=== PATIENT | female | born 1945 | race Caucasian/White ===

== ENCOUNTER 2023-01-02 09:41 | Observation (INO) | payer MEDICARE, SELFPAY ==
[2023-01-02 09:43] VITALS: BP 155/70; PULSE 86; RESP 16; TEMP 37.3; O2SAT 95; BMI 31.5
[2023-01-02 09:45] VITALS: O2SAT 95
[2023-01-02 10:35] LABS: Absolute Lymphocyte Count 0.84 X10^3/uL (0.83-4.51); Absolute Neutrophil Count 6.1 X10^3/uL (2.0-7.7); Basophil# 0.03 X10^3/uL; Basophil% 0.4 % (0-1); Eosinophil# 0.11 X10^3/uL; Eosinophils% 1.4 % (0-5); Hemoglobin 11.7 g/dL (12.0-15.0); Lymphocyte # 0.84 X10^3/ul (0.83-4.51); Mean Corp Hgb Conc 31.6 g/dL (32-36); Mean Corpuscular Hgb 29.4 pg (27.0-32.0); Mean Platelet Vol. 10.6 fl (6.2-12.0); Monocyte# 0.54 X10^3/uL; Monocyte% 7.1 % (0-10); NRBC Flagged by Analyzer 0 % (0-5); Neutrophil # 6.08 X10^3/uL (2.7-7.7); Platelet Count 159 K/mm3 (150-450); RBC Distribution Width CV 12.9 % (11.6-14.6); RBC Distribution Width SD 44.1 fl (35.1-43.9); Red Blood Count 3.98 M/mm3 (4.2-5.4); White Blood Count 7.6 K/mm3 (4.4-11.0)
--- NOTE | 2023-01-02 10:35 | EX.ED.GENINJ ---
HPI History of Present Illness Chief Complaint: Fall Informant: patient Narrative Narrative: Patient is a 77-year-old female presenting after mechanical fall. He states she fell in her garage yesterday afternoon. She landed mostly on her right knee which has been swollen and painful since. She did hit her head but denies any loss of conscious. S She notes that she has chronic numbness of her legs which has been thoroughly worked up and they do not know why. She lives home independently. She is currently with her neighbor. She normally ambulates independently. Has no other complaints or concerns at this time. Is most concerned about her pain. Did not take anything for pain as she was to start on metoprolol and did not know what would interact with this. Is adamant she is not on any blood thinners PFSH PFS Home Medications ibuprofen 125 mg-acetaminophen 250 mg tablet (Advil Dual Action) 2 tab PO BID 01/02/23 [History Last Taken Unknown] metoprolol succinate 25 mg capsule sprinkle, ext. release 24 hr 12.5 mg PO DAILY 01/02/23 [History Last Taken Unknown] ropinirole 2 mg tablet 2 mg PO TID 01/02/23 [History Last Taken Unknown] Allergy/AdvReac Type Severity Reaction Status Date / Time No Known Allergies Allergy Verified 01/02/23 09:41 Social History Smoking Status: Never smoker ROS ROS ED Constitutional Constitutional ED: Denies chills or fever(s) Eyes Eyes: Denies blurry vision or change in vision ENT ENT ED: Denies ear pain or rhinorrhea Cardiovascular Cardiovascular: Denies chest pain Respiratory/Chest Respiratory/Chest: Denies cough Gastrointestinal Gastrointestinal: Denies abdominal pain, nausea or vomiting Musculoskeletal Musculoskeletal: Reports myalgias and other Details: right knee pain and swelling ; Denies arthralgias Integumentary Denies rash Neurologic Neurologic: Reports paresthesias; Denies headache(s) or weakness Psychiatric Psychiatric: Denies anxiety Hematologic/Lymphatic Hematologic/Lymphatic: Denies easy bleeding or easy bruising EXAM Physical Exam Const Vital Signs: 01/02/23 09:43 01/02/23 09:45 Temperature 99.1 F Temperature Source Oral Pulse Rate 86 Respiratory Rate 16 Respiratory Effort Normal Non-Labored Respiratory Depth Normal Respiratory Pattern Normal Blood Pressure 155/70 H Blood Pressure Mean 98 Pulse Ox 95 95 Oxygen Delivery Method Room Air Room Air Positive well nourished and well developed General Appearance ED: well developed and NAD HEENT Reports TM's clear atraumatic Tympanic Membrane ED: Yes TM's clear Eyes PERRL and EOMs intact bilaterally Neck full ROM General: Negative for tenderness Chest Wall inspection of chest normal and palpation of chest normal Resp normal respiratory effort and clear to auscultation bilaterally Cardio regular rhythm and no murmurs Rate: regular rate GI normal to inspection, nondistended, normoactive bowel sounds and non-tender Extremity Extremity Narrative: Decreased range of motion with diffuse tenderness of the right knee. Significant effusion present. Patient is not able to elevate a straight leg off the bed. 2+ bilateral distal pulses. No pain with logroll. Pelvis is stable. No other bony tenderness appreciated. Neuro oriented x3, moves all extremities, no focal motor deficits and no sensory deficits noted Psych mental status grossly normal and thought process normal Skin no rashes or lesions noted MDM MDM MDM Narrative Medical decision making narrative: Patient is evaluated for knee pain after mechanical fall. She appears nontoxic and in no acute distress. Is quite uncomfortable with a large effusion of the right knee. Differential includes patellar fracture, tibial plateau fracture and quadricep tendon injury. She does not have a high riding patella at this time. She is given IV morphine for pain control. She otherwise has a normal exam and denies any other injuries. She states she did hit her head slightly when she fell but she had no loss of consciousness and does not want a head CT. She is acting appropriate at this time. On repeat evaluation she is more comfortable. X-ray interpreted by myself as well as radiology is consistent with a nondisplaced lateral tibial plateau fracture on the right. Case is discussed with Dr. Yeager, orthopedist on-call who states this is nonoperative and just needs nonweightbearing status. Patient is placed in a knee immobilizer. As patient lives home alone she is concerned about her ability to perform ADLs with a nonweightbearing status. Will be admitted to the hospital service for PT OT evaluation and possible placement if needed. Patient agreeable with this. Case discussed with admitting physician, Dr. Rogers Lab Data Labs: Laboratory Results - last 24 hr 01/02/23 01/02/23 10:30 10:30 WBC 7.6 RBC 3.98 L Hgb 11.7 L Hct 37.0 MCV 93.0 MCH 29.4 MCHC 31.6 L RDW Std Deviation 44.1 H RDW Coeff of Charles 12.9 Plt Count 159 MPV 10.6 Immature Gran % (Auto) 0.100 Neut % (Auto) 80.0 H Lymph % (Auto) 11.0 L Wilson % (Auto) 7.1 Eos % (Auto) 1.4 Baso % (Auto) 0.4 Absolute Neuts (auto) 6.1 Absolute Lymphs (auto) 0.84 Nucleated RBC % 0 Sodium 140 Potassium 4.1 Chloride 116 H Carbon Dioxide 22.0 Anion Gap 2 L BUN 28 H Creatinine 0.92 Estim Creat Clear Calc 45.35 Est GFR (MDRD) Af Amer 76 Est GFR (MDRD) Non-Af 62 BUN/Creatinine Ratio 30.3 H Glucose 91 Calcium 9.0 Total Creatine Kinase 316 H Radiography Diagnostic Testing: Clinical Impression(s) from Imaging Studies Knee X-Ray 01/02/23 10:50 IMPRESSION: Questionable nondisplaced lateral tibial plateau fracture. Joint effusion. Electronically Signed: Krish Becker MD at 11:05 EDT , Discharge Plan Triage Chief Complaint: Fall ED Provider: Carol Martinez Dx/Rx/DC Orders Clinical Impression: Closed nondisplaced fracture of right tibial plateau, Difficulty in walking Prescriptions: No Action ropinirole 2 mg Tablet 2 mg PO TID Advil Dual Action 125-250 mg Tablet 2 tab PO BID metoprolol succinate 25 mg Capsule,Sprinkle,Er 24hr 12.5 mg PO DAILY Primary Care Provider: Julio C Washington Referrals: Julio C Washington MD [Primary Care Provider] - Disposition Disposition: Acute Care Hospital [facility]
[2023-01-02] MEDS: Morphine 4 MG/ML Syringe IV (10:40)
--- NOTE | 2023-01-02 10:50 | RAD_ITS ---
STUDY: X-RAY - RIGHT KNEE REASON FOR EXAM: Female, 77 years old. Knee pain following a fall. TECHNIQUE: 4 view(s) of the knee. COMPARISON: None. FINDINGS: Normal visualized distal femur. Questionable nondisplaced lateral tibial plateau fracture. Normal proximal tibiofibular articulation. Normal medial femorotibial compartment. Normal lateral femorotibial compartment. Normal patellofemoral articulation. Small joint effusion. RAD/Knee 4 or More Views IMPRESSION: Questionable nondisplaced lateral tibial plateau fracture. Joint effusion. Electronically Signed: Krish Becker MD at 11:05 EDT ,
[2023-01-02 10:51] LABS: Anion Gap 2 (5-15); BUN 28 mg/dL (7-18); BUN/Creat Ratio 30.3 RATIO (10-20); CPK Total, Creatine Kinase 316 U/L (26-192); Chloride 116 mmol/L (98-107); Creatinine, Serum 0.92 mg/dL (0.55-1.02); EST Glomerular Filtration Rate 62 mL/min (>60); Est Glom Filt Rate - Afr Amer 76 mL/min (>60); Estimated Creatinine Clearance 45.35 ml/min; Glucose 91 mg/dL (74-106); Potassium 4.1 mmol/L (3.5-5.1); Sodium Level 140 mmol/L (136-145)
[2023-01-02 13:43] VITALS: BP 149/72; PULSE 81; RESP 16; TEMP 36.6; O2SAT 96
[2023-01-02 14:54] VITALS: BMI 30.1
[2023-01-02 15:11] VITALS: BP 148/88; PULSE 70; RESP 18; TEMP 36.7; O2SAT 100
--- NOTE | 2023-01-02 15:41 | HP.PCM.HOS_ITS ---
HPI - General General Date of Admission: 01/02/23 HPI Narrative DERIC BOO, is a 77 F who presents to the hospital with right knee pain after a fall in her garage. This was a purely mechanical fall as she had to clean out her garage in order to get it empty for [employer] company to fix her lorena. Knee x-ray demonstrates a possible tibial plateau fracture, the ED physician reviewed the films with orthopedic surgery who felt that she had a very fine tibial plateau toe fracture that was not amenable to surgery and that she should just be not on weight bearing, unfortunately she lives alone so does request that she be admitted for PT and OT evaluation and possible placement. She has been in the immobilizer as well. Has a work-up in the ER is unremarkable. She did not lose any consciousness given that she did hit her head. [facility] Home Medications ibuprofen 125 mg-acetaminophen 250 mg tablet (Advil Dual Action) 2 tab PO BID RA 01/02/23 [History Last Taken 01/02/23 08:00] metoprolol succinate 25 mg capsule sprinkle, ext. release 24 hr 12.5 mg PO DAILY bp 01/02/23 [History Last Taken 01/02/23 08:00] ropinirole 2 mg tablet 4 mg PO TID restless legs 01/02/23 [History Last Taken 01/02/23 08:00] Allergy/AdvReac Type Severity Reaction Status Date / Time No Known Allergies Allergy Verified 01/02/23 09:41 Family History (Updated 01/02/23 @ 15:[address] Kb Whalen MD) Other Heart disease Surgical History (Updated 01/02/23 @ 15:[address] Kb Whalen MD) H/O: hysterectomy Social History Smoking Status: Former smoker ROS Constitutional Constitutional: Denies chills, fatigue, fever(s) or malaise Eyes Eyes: Denies blurry vision ENT HEENT: Denies headache(s) or nasal discharge Cardiovascular Cardiovascular: Denies chest pain, dyspnea on exertion or syncope Respiratory/Chest Respiratory/Chest: Denies cough, shortness of breath at rest or shortness of breath with exertion Gastrointestinal Gastrointestinal: Denies constipation, diarrhea, nausea or vomiting Genitourinary Genitourinary: Denies dysuria Musculoskeletal Musculoskeletal: Reports joint pain Neurologic Neurologic: Denies focal weakness, numbness or tremor(s) Psychiatric Psychiatric: Denies anxiety or depression Vital Signs Vital Signs Vital Signs: 01/02/23 09:43 01/02/23 09:45 01/02/23 13:43 Temperature 99.1 F 98 F Temperature Source Oral Temporal Pulse Rate 86 81 Respiratory Rate 16 16 Respiratory Effort Normal Non-Labored Respiratory Depth Normal Respiratory Pattern Normal Blood Pressure 155/70 H 149/72 H Blood Pressure Mean 98 97 Blood Pressure Source Blood Pressure Position Blood Pressure Location Pulse Ox 95 95 96 Oxygen Delivery Method Room Air Room Air Room Air 01/02/23 15:11 01/02/23 15:11 Temperature 98.1 F Temperature Source Oral Pulse Rate 70 Respiratory Rate 18 Respiratory Effort Normal Respiratory Depth Respiratory Pattern Blood Pressure 148/88 H Blood Pressure Mean 108 Blood Pressure Source Monitor Blood Pressure Position Semi-Fowlers Blood Pressure Location Right Arm Pulse Ox 100 Oxygen Delivery Method Room Air Room Air Weight Weight: 181 lb 3.2 oz Body Mass Index (BMI) 30.1 Physical Exam Narrative General: Alert, Oriented x3, Cooperative, No apparent distress HEENT: Atraumatic, PERRLA, EOMI, Normocephalic Oral: Moist Mucosa Neck: Supple, No JVD Lungs: Clear to auscultation, Normal air movement, No rhonchi, No wheeze, No ral es Cardiovascular: Regular rate, Regular Rhythm, Normal S1, Normal S2, No murmurs Abdomen: Soft, Non Tender, Non-Distended, No Hepato-splenomegaly Extremities: No edema, Capillary Refill Less than 3 Seconds, her right knee is swollen with decreased range of motion and pain to palpation Skin: No rashes, No breakdown Musculoskeletal: No Tenderness to Palpation of Joints or Extremities Neurological: Cranial nerves II-XII grossly intact, Motor Exam 5/5 strength throughout, Sensory exam intact to light touch and pain Psych/Mental Status: Normal Affect, Appropriate Results Lab / Micro Data Result Diagrams: 01/02/23 10:30 01/02/23 10:30 Labs: Laboratory Results - last 24 hr 01/02/23 10:30: WBC 7.6, RBC 3.98 L, Hgb 11.7 L, Hct 37.0, MCV 93.0, MCH 29.4, MCHC 31.6 L, RDW Std Deviation 44.1 H, RDW Coeff of Charles 12.9, Plt Count 159, MPV 10.6, Immature Gran % (Auto) 0.100, Neut % (Auto) 80.0 H, Lymph % (Auto) 11.0 L, Linn % (Auto) 7.1, Eos % (Auto) 1.4, Baso % (Auto) 0.4, Absolute Neuts (auto) 6.1, Absolute Lymphs (auto) 0.84, Nucleated RBC % 0 01/02/23 10:30: Sodium 140, Potassium 4.1, Chloride 116 H, Carbon Dioxide 22.0, Anion Gap 2 L, BUN 28 H, Creatinine 0.92, Estim Creat Clear Calc 45.35, Est GFR (MDRD) Af Amer 76, Est GFR (MDRD) Non-Af 62, BUN/Creatinine Ratio 30.3 H, Glucose 91, Calcium 9.0, Total Creatine Kinase 316 H Radiology Impression Knee X-Ray 01/02/23 10:50 IMPRESSION: Questionable nondisplaced lateral tibial plateau fracture. Joint effusion. Electronically Signed: Krish Becker MD at 11:05 EDT , Assessment & Plan Assessment/Plan (1) Closed nondisplaced fracture of right tibial plateau: PLAN: Plan 1. Nondisplaced tibial plateau fracture on the right ? She she is to be nonweightbearing for several weeks ? She has been in a knee immobilizer and follow-up with orthopedic surgery in 1 week ? She lives alone therefore we will have her evaluate by PT and OT for possible placement ? We will provide pain medication as needed 2. Hypertension ? Blood pressures are stable ? Continue with metoprolol DVT: Ambulation 75 minutes was spent on direct patient care as well as chart review and collaboration with colleagues Charges/Coding Visit Charges Inpatient E&M: 82147 Init Hosp L3
[2023-01-02] MEDS: Pramipexole Di-HCl 1 MG Tablet PO ×2 (16:11→21:10)
[2023-01-02 19:22] VITALS: PULSE 80
[2023-01-02 21:05] VITALS: BP 149/69; PULSE 78; RESP 18; TEMP 37.7; O2SAT 93
[2023-01-02] MEDS: Ibuprofen 400 MG Tablet PO (22:24)
[2023-01-03 02:51] VITALS: BP 129/67; PULSE 73; RESP 18; TEMP 37.3; O2SAT 95
[2023-01-03] MEDS: 0.9% Saline Lock 10 ML Syringe IV (02:56)
[2023-01-03 05:43] LABS: Absolute Lymphocyte Count 1.14 X10^3/uL (0.83-4.51); Absolute Neutrophil Count 4.4 X10^3/uL (2.0-7.7); Basophil# 0.02 X10^3/uL; Basophil% 0.3 % (0-1); Eosinophil# 0.32 X10^3/uL; Eosinophils% 5.1 % (0-5); Hematocrit 35.2 % (37-47); Hemoglobin 11.2 g/dL (12.0-15.0); Lymphocyte # 1.14 X10^3/ul (0.83-4.51); Lymphocyte % 18.3 % (19-41); Mean Corp Hgb Conc 31.8 g/dL (32-36); Mean Corpuscular Hgb 29.6 pg (27.0-32.0); Mean Corpuscular Volume 92.9 fL (81-99); Mean Platelet Vol. 11.1 fl (6.2-12.0); Monocyte# 0.38 X10^3/uL; Monocyte% 6.1 % (0-10); NRBC Flagged by Analyzer 0 % (0-5); Neutrophil # 4.36 X10^3/uL (2.7-7.7); Platelet Count 153 K/mm3 (150-450); RBC Distribution Width SD 44.4 fl (35.1-43.9); Red Blood Count 3.79 M/mm3 (4.2-5.4); White Blood Count 6.2 K/mm3 (4.4-11.0)
[2023-01-03 06:06] LABS: Anion Gap 8 (5-15); BUN 23 mg/dL (7-18); BUN/Creat Ratio 30.2 RATIO (10-20); Calcium,Total 8.5 mg/dL (8.5-10.1); Chloride 112 mmol/L (98-107); Creatinine, Serum 0.76 mg/dL (0.55-1.02); EST Glomerular Filtration Rate 78 mL/min (>60); Est Glom Filt Rate - Afr Amer 94 mL/min (>60); Estimated Creatinine Clearance 41.72 ml/min; Glucose 102 mg/dL (74-106); Potassium 3.6 mmol/L (3.5-5.1); Sodium Level 142 mmol/L (136-145)
[2023-01-03] MEDS: Pramipexole Di-HCl 1 MG Tablet PO ×3 (06:11→20:57)
[2023-01-03 08:58] VITALS: BP 132/88; PULSE 79; RESP 18; TEMP 37.1; O2SAT 93
[2023-01-03 09:01] VITALS: BP 132/88; PULSE 79
[2023-01-03] MEDS: Metoprolol(XL)Succ 25 MG Tablet 12.5 MG PO (09:01)
[2023-01-03] MEDS: Ibuprofen 400 MG Tablet PO ×2 (09:09→18:14)
--- NOTE | 2023-01-03 09:50 | PCM.PN.HOSP ---
Subjective Subjective Doing, pain is controlled. Still awaiting evaluation by physical therapy to determine disposition Objective Data Objective Data Vital Signs: Vital Signs Temp Pulse Resp BP Pulse Ox O2 Del Method 98.8 F 79 18 132/88 H 93 Room Air 01/03/23 08:58 01/03/23 09:01 01/03/23 08:58 01/03/23 09:01 01/03/23 08:58 01/03/23 09:00 Oxygen Delivery Method Room Air Weight: 181 lb 3.2 oz Body Mass Index (BMI) 30.1 Intake & Output: Intake and Output for Last 24 Hours 01/02/23 01/03/23 01/04/23 03:59 03:59 03:59 Intake Total 120 / 120 150 / 150 Output Total 350 / 350 Balance -230 / -230 150 / 150 Lab / Micro Data Result Diagrams: 01/03/23 05:26 01/03/23 05:26 Labs: Laboratory Results - last 24 hr 01/02/23 10:30: WBC 7.6, RBC 3.98 L, Hgb 11.7 L, Hct 37.0, MCV 93.0, MCH 29.4, MCHC 31.6 L, RDW Std Deviation 44.1 H, RDW Coeff of Charles 12.9, Plt Count 159, MPV 10.6, Immature Gran % (Auto) 0.100, Neut % (Auto) 80.0 H, Lymph % (Auto) 11.0 L, Metcalfe % (Auto) 7.1, Eos % (Auto) 1.4, Baso % (Auto) 0.4, Absolute Neuts (auto) 6.1, Absolute Lymphs (auto) 0.84, Nucleated RBC % 0 01/02/23 10:30: Sodium 140, Potassium 4.1, Chloride 116 H, Carbon Dioxide 22.0, Anion Gap 2 L, BUN 28 H, Creatinine 0.92, Estim Creat Clear Calc 45.35, Est GFR (MDRD) Af Amer 76, Est GFR (MDRD) Non-Af 62, BUN/Creatinine Ratio 30.3 H, Glucose 91, Calcium 9.0, Total Creatine Kinase 316 H 01/03/23 05:26: WBC 6.2, RBC 3.79 L, Hgb 11.2 L, Hct 35.2 L, MCV 92.9, MCH 29.6, MCHC 31.8 L, RDW Std Deviation 44.4 H, RDW Coeff of Charles 13.0, Plt Count 153, MPV 11.1, Immature Gran % (Auto) 0.200, Neut % (Auto) 70.0, Lymph % (Auto) 18.3 L, Metcalfe % (Auto) 6.1, Eos % (Auto) 5.1 H, Baso % (Auto) 0.3, Absolute Neuts (auto) 4.4, Absolute Lymphs (auto) 1.14, Nucleated RBC % 0 01/03/23 05:26: Sodium 142, Potassium 3.6, Chloride 112 H, Carbon Dioxide 22.0, Anion Gap 8, BUN 23 H, Creatinine 0.76, Estim Creat Clear Calc 41.72, Est GFR (MDRD) Af Amer 94, Est GFR (MDRD) Non-Af 78, BUN/Creatinine Ratio 30.2 H, Glucose 102, Calcium 8.5 Radiography Diagnostic Testing: Radiology Impression Knee X-Ray 01/02/23 10:50 IMPRESSION: Questionable nondisplaced lateral tibial plateau fracture. Joint effusion. Electronically Signed: Krish Becker MD at 11:05 EDT , Physical Exam Narrative General: Alert, Oriented x3, Cooperative, No apparent distress HEENT: Atraumatic, PERRLA, EOMI, Normocephalic Oral: Moist Mucosa Neck: Supple, No JVD Lungs: Clear to auscultation, Normal air movement, No rhonchi, No wheeze, No rales Cardiovascular: Regular rate, Regular Rhythm, Normal S1, Normal S2, No murmurs Abdomen: Soft, Non Tender, Non-Distended, No Hepato-splenomegaly Extremities: No edema, Capillary Refill Less than 3 Seconds, her right knee is swollen with decreased range of motion and pain to palpation Skin: No rashes, No breakdown Musculoskeletal: No Tenderness to Palpation of Joints or Extremities Neurological: Cranial nerves II-XII grossly intact, Motor Exam 5/5 strength throughout, Sensory exam intact to light touch and pain Psych/Mental Status: Normal Affect, Appropriate Assessment & Plan Assessment/Plan (1) Closed nondisplaced fracture of right tibial plateau: PLAN: Plan 1. Nondisplaced tibial plateau fracture on the right ? She she is to be nonweightbearing for several weeks ? She has been in a knee immobilizer and follow-up with orthopedic surgery in 1 week ? She lives alone therefore we will have her evaluate by PT and OT for possible placement ? We will provide pain medication as needed 2. Hypertension ? Blood pressures are stable ? Continue with metoprolol DVT: Ambulation Charges/Coding Visit Charges Inpatient E&M: 22436 Subs Hosp L2
--- NOTE | 2023-01-03 09:55 | CASEMGMT ---
FELICE MOYA: FELICE MOYA in to complete BAXTER form at this time.? RN GRIFFIN explained BAXTER for to patient, patient voiced understanding.? Patient signed BAXTER Form and filed in chart.? Patient provided with copy of signed BAXTER form.? Patient had no further questions or concerns.?? DC Planning: Pt states she lives alone in a single story home without steps to enter. States she had been independent with ADLs prior to admission and used a cane only periodically. Pt states she does not have a medical alert button. Pt states Dr. Washington is her PCP currently but she is in the process of changing. She has not yet established care with a new provider. Her friend Ligia is assisting her with this process. Pt states she would like to return home at discharge if she is able to move around. Discussed pending PT/OT evaluations to determine her ability to return home. Pt agreeable to plan and is anxious to have this determined. Explained SW is also available to assist her with her DC plan assistance. Sue Alvarez RN CM
--- NOTE | 2023-01-03 12:27 | CASEMGMT ---
Social Work A list of SNF providers including quality and resource use data and consistent with patient?s preferred geographic region, medical needs, and insurance network were provided from the [facility] Guide. Pt is interested in TCU. Voicemail left to refer patient to TCU. Jada Naqvi SUGAR CANE PLANTER, HOME HEALTH CARE COORDINATOR
[2023-01-03 20:52] VITALS: BP 117/67; PULSE 88; RESP 16; TEMP 37; O2SAT 95
[2023-01-04 02:52] VITALS: BP 129/77; PULSE 80; RESP 16; TEMP 36.8; O2SAT 95
[2023-01-04] MEDS: Pramipexole Di-HCl 1 MG Tablet PO ×3 (05:14→20:16)
[2023-01-04 07:58] VITALS: BP 124/76; PULSE 84; RESP 16; TEMP 37.4; O2SAT 94
[2023-01-04] MEDS: Ibuprofen 400 MG Tablet PO (08:19)
--- NOTE | 2023-01-04 10:08 | PCM.PN.HOSP ---
Subjective Subjective Doing well, knee pain is controlled Objective Data Objective Data Vital Signs: Vital Signs Temp Pulse Resp BP Pulse Ox O2 Del Method 99.4 F H 84 16 124/76 H 94 Room Air 01/04/23 07:58 01/04/23 07:58 01/04/23 07:58 01/04/23 07:58 01/04/23 07:58 01/04/23 08:20 Oxygen Delivery Method Room Air Weight: 181 lb 3.2 oz Body Mass Index (BMI) 30.1 Intake & Output: Intake and Output for Last 24 Hours 01/03/23 01/04/23 01/05/23 03:59 03:59 03:59 Intake Total 120 / 120 1500 / 1500 300 / 300 Output Total 350 / 350 850 / 850 250 / 250 Balance -230 / -230 650 / 650 50 / 50 Lab / Micro Data Result Diagrams: 01/03/23 05:26 01/03/23 05:26 Physical Exam Narrative General: Alert, Oriented x3, Cooperative, No apparent distress HEENT: Atraumatic, PERRLA, EOMI, Normocephalic Oral: Moist Mucosa Neck: Supple, No JVD Lungs: Clear to auscultation, Normal air movement, No rhonchi, No wheeze, No rales Cardiovascular: Regular rate, Regular Rhythm, Normal S1, Normal S2, No murmurs Abdomen: Soft, Non Tender, Non-Distended, No Hepato-splenomegaly Extremities: No edema, Capillary Refill Less than 3 Seconds, her right knee is swollen with decreased range of motion and pain to palpation Skin: No rashes, No breakdown Musculoskeletal: No Tenderness to Palpation of Joints or Extremities Neurological: Cranial nerves II-XII grossly intact, Motor Exam 5/5 strength throughout, Sensory exam intact to light touch and pain Psych/Mental Status: Normal Affect, Appropriate Assessment & Plan Assessment/Plan (1) Closed nondisplaced fracture of right tibial plateau: PLAN: Plan 1. Nondisplaced tibial plateau fracture on the right ? She she is to be nonweightbearing for several weeks ? She has been in a knee immobilizer and follow-up with orthopedic surgery in 1 week ? Evaluated by PT/OT, pending placement ? We will provide pain medication as needed 2. Hypertension ? Blood pressures are stable ? Continue with metoprolol DVT: Ambulation Charges/Coding Visit Charges Inpatient E&M: 33922 Subs Hosp L2
[2023-01-04 10:45] VITALS: BP 124/76; PULSE 84
[2023-01-04] MEDS: Metoprolol(XL)Succ 25 MG Tablet 12.5 MG PO (10:45)
[2023-01-04 14:44] VITALS: BP 125/68; PULSE 80; RESP 16; TEMP 36.6; O2SAT 94
[2023-01-04 20:15] VITALS: BP 131/97; PULSE 83; RESP 16; TEMP 37.1; O2SAT 95
[2023-01-05 05:49] VITALS: BP 136/68; PULSE 71; RESP 16; TEMP 36.9; O2SAT 95
[2023-01-05] MEDS: Pramipexole Di-HCl 1 MG Tablet PO ×3 (05:52→21:03)
[2023-01-05 05:53] LABS: Absolute Lymphocyte Count 1.14 X10^3/uL (0.83-4.51); Absolute Neutrophil Count 4.2 X10^3/uL (2.0-7.7); Basophil# 0.03 X10^3/uL; Basophil% 0.5 % (0-1); Eosinophil# 0.37 X10^3/uL; Eosinophils% 5.9 % (0-5); Hematocrit 35.8 % (37-47); Hemoglobin 11.5 g/dL (12.0-15.0); Lymphocyte # 1.14 X10^3/ul (0.83-4.51); Lymphocyte % 18.3 % (19-41); Mean Corp Hgb Conc 32.1 g/dL (32-36); Mean Corpuscular Hgb 29.7 pg (27.0-32.0); Mean Corpuscular Volume 92.5 fL (81-99); Monocyte# 0.49 X10^3/uL; Monocyte% 7.9 % (0-10); NRBC Flagged by Analyzer 0 % (0-5); Neutrophil # 4.18 X10^3/uL (2.7-7.7); Neutrophil % 67.2 % (47-70); Platelet Count 157 K/mm3 (150-450); RBC Distribution Width CV 13.2 % (11.6-14.6); RBC Distribution Width SD 44.4 fl (35.1-43.9); Red Blood Count 3.87 M/mm3 (4.2-5.4); White Blood Count 6.2 K/mm3 (4.4-11.0)
[2023-01-05 06:28] LABS: Anion Gap 6 (5-15); BUN 17 mg/dL (7-18); Calcium,Total 8.5 mg/dL (8.5-10.1); Chloride 108 mmol/L (98-107); Creatinine, Serum 0.81 mg/dL (0.55-1.02); EST Glomerular Filtration Rate 73 mL/min (>60); Est Glom Filt Rate - Afr Amer 88 mL/min (>60); Estimated Creatinine Clearance 51.51 ml/min; Glucose 95 mg/dL (74-106); Potassium 4.1 mmol/L (3.5-5.1); Sodium Level 138 mmol/L (136-145)
[2023-01-05 08:34] VITALS: BP 110/64; PULSE 86
[2023-01-05] MEDS: Metoprolol(XL)Succ 25 MG Tablet 12.5 MG PO (08:34)
[2023-01-05 09:37] VITALS: BP 110/64; PULSE 86; RESP 18; TEMP 37; O2SAT 94
--- NOTE | 2023-01-05 10:43 | CASEMGMT ---
Social Work SW messaged Sierra at [facility] to inquire about pt being accepted at [facility]. Sierra stated would review pt case and let SW know. Sierra messaged back later to inform pt had been accepted. Precert to be started today after lunch. SW updated pt that [facility] has accepted. PLAN: [facility], pending precert FRANKY Koch
[2023-01-05 14:08] VITALS: BP 123/71; PULSE 88; RESP 18; TEMP 37.1; O2SAT 95
--- NOTE | 2023-01-05 14:11 | PN.HOSP_ITS ---
Reason for Visit Reason for Visit: Diagnoses Nondisplaced bicondylar fracture of right tibia, initial encounter for closed f racture (01/02/23) Objective Data Objective Data No acute complaint. Denies constipation. Vital Signs: Vital Signs Temp Pulse Resp BP Pulse Ox O2 Del Method 98.8 F 88 18 123/71 H 95 Room Air 01/05/23 14:08 01/05/23 14:08 01/05/23 14:08 01/05/23 14:08 01/05/23 14:08 01/05/23 14:08 Oxygen Delivery Method Room Air Weight: 181 lb 3.2 oz Body Mass Index (BMI) 30.1 Intake & Output: Intake and Output for Last 24 Hours 01/03/23 01/04/23 01/05/23 23:59 23:59 23:59 Intake Total 900 / 900 1800 / 1800 520 / 520 Output Total 850 / 850 250 / 250 1275 / 1275 Balance 50 / 50 1550 / 1550 -755 / -755 Lab / Micro Data Result Diagrams: 01/05/23 05:20 01/05/23 05:20 Labs: Laboratory Results - last 24 hr 01/05/23 05:20: WBC 6.2, RBC 3.87 L, Hgb 11.5 L, Hct 35.8 L, MCV 92.5, MCH 29.7, MCHC 32.1, RDW Std Deviation 44.4 H, RDW Coeff of Charles 13.2, Plt Count 157, MPV 11.0, Immature Gran % (Auto) 0.200, Neut % (Auto) 67.2, Lymph % (Auto) 18.3 L, Hamilton % (Auto) 7.9, Eos % (Auto) 5.9 H, Baso % (Auto) 0.5, Absolute Neuts (auto) 4.2, Absolute Lymphs (auto) 1.14, Nucleated RBC % 0 01/05/23 05:20: Sodium 138, Potassium 4.1, Chloride 108 H, Carbon Dioxide 24.0, Anion Gap 6, BUN 17, Creatinine 0.81, Estim Creat Clear Calc 51.51, Est GFR (MDRD) Af Amer 88, Est GFR (MDRD) Non-Af 73, BUN/Creatinine Ratio 21.0 H, Glucose 95, Calcium 8.5 Physical Exam Narrative Physical exam General: Alert, Oriented x3, Cooperative HEENT: Atraumatic, PERRLA, EOMI, Normocephalic Oral: No Gingival or Mucosal Lesions/ Ulcerations Neck: Supple, No JVD, Negative Carotid Bruits Lungs: Air entry diminished in bilateral lung bases. No crepitation/rhonchi Cardiovascular: Regular rate, Regular Rhythm, Normal S1, Normal S2, No murmurs Abdomen: Bowel Sounds Present, Soft, Non Tender, Non-Distended :Spontaneously voiding urine. Denies dysuria or new LUTS. No renal angle tenderness. No suprapubic tenderness. Extremities: No edema, Capillary Refill Less than 3 Seconds Skin: No rashes, No breakdown Musculoskeletal: Right knee immobilizer. No acute tenderness to Palpation of other joints or Extremities Neurological: Cranial nerves II-XII grossly intact, DTR 2+/4 and Symmetrical, Neuro grossly intact Psych/Mental Status: Normal Affect, Appropriate. Assessment & Plan Assessment/Plan (1) Closed nondisplaced fracture of right tibial plateau: PLAN: Plan 1.? Nondisplaced tibial plateau fracture on the right: Patient is admitted on Medr floor. Nonweightbearing for several weeks. Patient was evaluated by PT and OT and plan for SNF. Discussed with the case packer and sealer. Follow-up orthopedic surgery as an outpatient in 1 week. 2.? Hypertension ? Blood pressures are in normal range ? Continue with metoprolol DVT: Ambulation Charges/Coding Visit Charges Inpatient E&M: 30602 Subs Hosp L2
[2023-01-05 20:37] VITALS: BP 113/73; PULSE 80; RESP 16; TEMP 36.6; O2SAT 95
[2023-01-05] MEDS: Loperamide 2 MG Capsule PO (21:02)
[2023-01-06] MEDS: Pramipexole Di-HCl 1 MG Tablet PO ×2 (05:52→13:43)
[2023-01-06 05:54] VITALS: BP 122/85; PULSE 76; RESP 16; TEMP 36.6; O2SAT 95
[2023-01-06 08:35] VITALS: PULSE 72
[2023-01-06] MEDS: Metoprolol(XL)Succ 25 MG Tablet 12.5 MG PO (08:35)
[2023-01-06] MEDS: APIXABAN 2.5 MG TABLET (WCH) PO (08:35)
--- NOTE | 2023-01-06 09:11 | TREXTCAR_ITS ---
Diet Diet Order/Speech Therapy: 01/02/23 14:54 Diet: Regular - General Food consistency:: Regular Liquid Consistency:: Regular/Thin Routine Orders/Code Status Code Status: DNRCC-A (No intubation) Therapies Weight Bearing: Non weight bearing Extremity Affected:: Right Lower Physical Therapy: Eval and Treat Occupational Therapy: Eval and Treat Speech Therapy: Eval and Treat Problem/Diagnosis (1) Closed nondisplaced fracture of right tibial plateau: Status: Acute Code(s): S82.144A - Nondisplaced bicondylar fracture of right tibia, initial encounter for closed fracture Plan 1.? Nondisplaced tibial plateau fracture on the right: Patient is admitted on [facility] floor. Nonweightbearing for several weeks. Patient was evaluated by PT and OT and plan for SNF. Discussed with the casework specialist. Follow-up orthopedic surgery as an outpatient in 1 week. 2.? Hypertension ? Blood pressures are in normal range ? Continue with metoprolol DVT: Ambulation Allergies/Procedures Done in Hospital Allergies No Known Allergies Allergy (Verified 01/02/23 09:41) Type of Care/Length of Stay Estimated LOS: Convalescent Care Less Than 30 days Type of Care Needed: Skilled Rehab Potential: Good Prognosis: Good Additional Orders/Day of Discharge Day of Discharge: 01/06/23 Discharge Plan Admission Admit Date/Time: 01/02/23 13:32 Primary Reason for Your Visit: Right tibial plateau fracture Attending Provider: Reece Najera Primary Care Provider: Julio C Washington Consulting Providers: Kb Whalen Discharge Orders/Prescriptions Prescriptions: New oxycodone 5 mg Tablet 2.5 - 5 mg PO Q4H PRN PRN (Reason: Pain Score 4-10) 3 Days Qty: 7 0RF Eliquis 2.5 mg tablet 2.5 mg PO BID 30 Days Qty: 60 0RF Continued ropinirole 2 mg Tablet 4 mg PO TID Advil Dual Action 125-250 mg Tablet 2 tab PO BID metoprolol succinate 25 mg Capsule,Sprinkle,Er 24hr 12.5 mg PO DAILY Referrals / Follow Up: Tomas Emerson DO [Med Staff - Active Staff] - Within 2 Weeks (FOR RIGHT Knee tibial plateau fracture) Julio C Washington MD [Primary Care Provider] - Within 2 Weeks Disposition Disposition (needs filled in before D/C Order can be placed): Long Term Facility
--- NOTE | 2023-01-06 09:11 | PCM.PN.HOSP ---
Reason for Visit Reason for Visit: Diagnoses Nondisplaced bicondylar fracture of right tibia, initial encounter for closed fracture (01/02/23) Subjective Subjective No acute change in clinical status. Objective Data Objective Data Vital Signs: Vital Signs Temp Pulse Resp BP Pulse Ox O2 Del Method 97.9 F 72 16 122/85 H 95 Room Air 01/06/23 05:54 01/06/23 08:35 01/06/23 05:54 01/06/23 05:54 01/06/23 05:54 01/06/23 08:30 Oxygen Delivery Method Room Air Weight: 181 lb 3.2 oz Body Mass Index (BMI) 30.1 Intake & Output: Intake and Output for Last 24 Hours 01/04/23 01/05/23 01/06/23 23:59 23:59 23:59 Intake Total 1800 / 1800 640 / 640 800 / 800 Output Total 250 / 250 1275 / 1275 250 / 250 Balance 1550 / 1550 -635 / -635 550 / 550 Lab / Micro Data Result Diagrams: 01/05/23 05:20 01/05/23 05:20 Physical Exam Narrative Physical exam General: Alert, Oriented x3, Cooperative HEENT: Atraumatic, PERRLA, EOMI, Normocephalic Oral: Oral mucosa moist. No Gingival or Mucosal Lesions/ Ulcerations Neck: Supple, No JVD, Negative Carotid Bruits Lungs: Air entry diminished in bilateral lung bases. No crepitation/rhonchi Cardiovascular: Regular rate, Regular Rhythm, Normal S1, Normal S2, No murmurs Abdomen: Bowel Sounds Present, Soft, Non Tender, Non-Distended :Spontaneously voiding urine. Denies dysuria or new LUTS. No renal angle tenderness. No suprapubic tenderness. Extremities: No edema, Capillary Refill Less than 3 Seconds Skin: No rashes, No breakdown Musculoskeletal: Right knee immobilizer. No acute tenderness to Palpation of other joints or Extremities Neurological: Cranial nerves II-XII grossly intact, DTR 2+/4 and Symmetrical, Neuro grossly intact Psych/Mental Status: Normal Affect, Appropriate. Assessment & Plan Assessment/Plan (1) Closed nondisplaced fracture of right tibial plateau: PLAN: Plan 1.? Nondisplaced tibial plateau fracture on the right: Patient is admitted on [facility] floor. Nonweightbearing for several weeks. Patient was evaluated by PT and OT and plan for SNF. Discussed with the case management director. Follow-up orthopedic surgery as an outpatient in 1 week. 01/06: Pending pre-CERT. Patient does not have acute pain. Patient is medically stable for discharge. Transfer papers signed. 2.? Hypertension ? Blood pressures are in normal range ? Continue with metoprolol DVT, high risk because of knee right tibial plateau fracture: Patient was started on Eliquis 2.5 mg twice daily when I took over the patient's discharge on 01/05/2023. Prescription given for Eliquis to continue for 1 month. Charges/Coding Visit Charges Inpatient E&M: 33230 Subs Hosp L2
[2023-01-06 10:00] VITALS: BP 125/69; PULSE 72; RESP 18; TEMP 36.8; O2SAT 96
--- NOTE | 2023-01-06 11:51 | PHA.DC.MR ---
Pharmacy Service has performed discharge medication reconciliation for this patient. The patient's discharge medication list was reviewed for discrepancies and discrepancies were resolved. Home Medications ibuprofen 125 mg-acetaminophen 250 mg tablet (Advil Dual Action) 2 tab PO BID RA 01/02/23 metoprolol succinate 25 mg capsule sprinkle, ext. release 24 hr 12.5 mg PO DAILY bp 01/02/23 ropinirole 2 mg tablet 4 mg PO TID restless legs 01/02/23 apixaban 2.5 mg tablet (Eliquis) 2.5 mg PO BID 30 days #60 tabs 01/06/23 oxycodone 5 mg tablet 2.5 - 5 mg PO Q4H PRN PRN Pain Score 4-10 3 days #7 tabs 01/06/23
--- NOTE | 2023-01-06 13:51 | CASEMGMT ---
Social Work Handoff from Carmen Crockett AIRCRAFT STRUCTURAL DESIGN ENGINEER. Spoke with [facility], admissions for TCU. Precert is not yet back from insurance, but is in process. Plan: TCU, skilled level of care when precert comes back. -KRISTAL Navarro, AIRCRAFT STRUCTURAL DESIGN ENGINEER
[2023-01-06 14:45] VITALS: BP 130/70; PULSE 78; RESP 18; TEMP 36.9; O2SAT 95
--- NOTE | 2023-01-06 17:15 | CASEMGMT ---
Social Work Received notice from [facility], TCU admissions, and precert is back from insurance. Updated nursing of need for COVID and handoff to TCU. Updated Dr. Najera for completion of SNF orders. Plan: Discharge skilled level of care, to [facility] TCU SNF. -KRISTAL Navarro, FIRE PROTECTION INSPECTOR
--- NOTE | 2023-01-06 17:27 | NURSING ---
Called report to Cheryl at [facility], told her that we would send her over once the COVID test was resulted.
--- NOTE | 2023-01-06 17:32 | PCM.DC.SUM ---
Providers Date of Admission: 01/02/23 Date of Discharge: 01/06/23 Primary Care Physician: Dr. Julio C Washington MD Reason For Visit: DEBILITY, TIBIAL PLATEAU FRACTURE Diagnosis Discharge Diagnosis (1) Closed nondisplaced fracture of right tibial plateau: Status: Acute Code(s): S82.144A - Nondisplaced bicondylar fracture of right tibia, initial encounter for closed fracture Plan DERIC BOO, is a 77 F who was admitted to the hospital with right knee pain after a fall in her garage, mechanical in nature she did not lose consciousness and she did not hit her head. ? Knee x-ray demonstrates a possible tibial plateau fracture, the ED physician reviewed the films with orthopedic surgery who felt that she had a very fine tibial plateau fracture that was not amenable to surgery and that she should be not on weight bearing, 1.? Nondisplaced tibial plateau fracture on the right: [facility] Nonweightbearing for several weeks. Patient was evaluated by PT and OT and plan for SNF. Discussed with the correctional case records supervisor. Follow-up orthopedic surgery as an outpatient in 1 week. 2.? Hypertension ? Blood pressures are in normal range ? Continue with metoprolol DVT: High risk therefore was started on Eliquis 2.5 mg p.o. twice daily and discharged on same. Discharge medication reconciliation done. Discharge follow-up instructions completed. Discharge process discussed with the patient and all questions were answered to patient's satisfaction. Discharge to SNF, TCU. Total time spent, exact 35 minutes on discharge meds reconciliation, examination, coordination of care with nurses and ancillary staff, review of imaging and blood test and discussion with the patient on follow-up instructions. Medications at Discharge Home Medications ibuprofen 125 mg-acetaminophen 250 mg tablet (Advil Dual Action) 2 tab PO BID RA 01/02/23 metoprolol succinate 25 mg capsule sprinkle, ext. release 24 hr 12.5 mg PO DAILY bp 01/02/23 ropinirole 2 mg tablet 4 mg PO TID restless legs 01/02/23 apixaban 2.5 mg tablet (Eliquis) 2.5 mg PO BID 30 days #60 tabs 01/06/23 oxycodone 5 mg tablet 2.5 - 5 mg PO Q4H PRN PRN Pain Score 4-10 3 days #7 tabs 01/06/23 Physical Exam Narrative Patient was seen and examined on the day of discharge. Please see the progress note of the same date. Weight / BMI Weight Weight: 181 lb 3.2 oz Body Mass Index (BMI) 30.1 ABG / Lab / Microbiology Data Result Diagrams: 01/05/23 05:20 01/05/23 05:20 Meaningful Use Info Meaningful Use Diagnoses (Choose all that apply): None applicable Discharge Plan Admission Admit Date/Time: 01/02/23 13:32 Primary Reason for Your Visit: Right tibial plateau fracture Attending Provider: Reece Najera Primary Care Provider: Julio C Washington Consulting Providers: Kb Whalen Discharge Orders/Prescriptions Prescriptions: New oxycodone 5 mg Tablet 2.5 - 5 mg PO Q4H PRN PRN (Reason: Pain Score 4-10) 3 Days Qty: 7 0RF Eliquis 2.5 mg tablet 2.5 mg PO BID 30 Days Qty: 60 0RF Continued ropinirole 2 mg Tablet 4 mg PO TID Advil Dual Action 125-250 mg Tablet 2 tab PO BID metoprolol succinate 25 mg Capsule,Sprinkle,Er 24hr 12.5 mg PO DAILY Referrals / Follow Up: Tomas Emerson DO [Med Staff - Active Staff] - Within 2 Weeks (FOR RIGHT Knee tibial plateau fracture) Julio C Washington MD [Primary Care Provider] - Within 2 Weeks Disposition Disposition (needs filled in before D/C Order can be placed): [facility] Facility Charges/Coding Addendum Addendum: Please cancel the billing charge of progress note on the same date. Visit Charges Inpatient E&M: 34328 Disch Hosp >30min
== END 2023-01-06 18:17 | disposition skilled nursing facility (03) ==
LOC: ED 12:38 → MS3 13:48
PROVIDERS: Admitting Provider Family Medicine; Emergency Provider Emergency Medicine; PCP Family Medicine; Visit Provider Internal Medicine
DX: S82.144A Nondisplaced bicondylar fracture of right tibia, initial encounter for closed fracture (principal); R53.81 Other malaise; Z87.891 Personal history of nicotine dependence; R26.2 Difficulty in walking, not elsewhere classified; Z79.899 Other long term (current) drug therapy; R20.2 Paresthesia of skin; Y93.E9 Activity, other interior property and clothing maintenance; W19.XXXA Unspecified fall, initial encounter; Y92.015 Private garage of single-family (private) house as the place of occurrence of the external cause; I10 Essential (primary) hypertension
CPT/HCPCS: 36415; 73564; 80048; 82550; 85025; 87426; 96374; 97110; 97116; 97162; 97166; 97530; 97535; 99221; 99285; A4216; G0378

== ENCOUNTER 2023-01-06 18:30 | Inpatient (IN) | payer MEDICARE, SELFPAY ==
[2023-01-06 18:55] VITALS: BP 121/58; PULSE 87; RESP 18; TEMP 36.7; O2SAT 93
[2023-01-06 19:00] VITALS: PULSE 87; RESP 18; O2SAT 93; BMI 30.1
--- NOTE | 2023-01-06 20:46 | HP.PCM_ITS ---
HPI - General General Date of Admission: 01/06/23 Date of Service: 01/07/23 Chief Complaint: Here for rehabilitation. HPI Narrative 01/02/2023 DERIC BOO, is a 77 Female who presents to [facility] Emergency Department with fall. Mechanical fall in garage yesterday. Landed on right knee, now swollen, painful. Hit head, no LOC, chronic numbness of legs. Morphine given for pain. X-ray shows right nondisplaced lateral tibial plateau fracture. Right knee immobilizer applied, NWB right lower extremity. Unable to care for self at home. 01/02/2023 Admit to Hospital. Right knee immobilizer, NWB right lower extremity, PT/OT right bicondylar tibia fracture. 01/03/2023 Await PT/OT evaluation. Pain control. 01/04/2023 Right knee pain controlled. Blood pressure controlled. 01/05/2023 PT/OT for SNF. Eliquis 2.5mg twice daily x 30 days for DVT prophylaxis. 01/06/2023 Admit to TCU with debility, here for rehabilitation, strengthening, prior to discharge home alone. [facility] Medical History (Updated 01/06/23 @ 20:[address] Wei Rodriguez MD) Bicondylar fracture of right tibia Hypertension Restless leg syndrome Home Medications ibuprofen 125 mg-acetaminophen 250 mg tablet (Advil Dual Action) 2 tab PO BID RA 01/02/23 [History Last Taken 01/02/23 08:00] metoprolol succinate 25 mg capsule sprinkle, ext. release 24 hr 12.5 mg PO DAILY bp 01/02/23 [History Last Taken 01/02/23 08:00] ropinirole 2 mg tablet 4 mg PO TID restless legs 01/02/23 [History Last Taken 01/02/23 08:00] apixaban 2.5 mg tablet (Eliquis) 2.5 mg PO BID Blood Thinner 01/06/23 [History Last Taken Unknown] oxycodone 5 mg tablet 2.5 - 5 mg PO Q4H PRN PRN Pain Score 4-10 3 days #7 tabs 01/06/23 [Rx Last Taken Unknown] Allergy/AdvReac Type Severity Reaction Status Date / Time No Known Allergies Allergy Verified 01/02/23 09:41 Family History Other Heart disease Surgical History H/O: hysterectomy Social History (Updated 01/06/23 @ 20:[address] Wei Rodriguez MD) household members: none Smoking Status: Former smoker alcohol intake: never substance use type: does not use ROS Constitutional Constitutional: Denies chills, fever(s) or weight gain ENT HEENT: Denies headache(s), nasal congestion or nasal discharge Cardiovascular Cardiovascular: Denies chest pain or palpitations Respiratory/Chest Respiratory/Chest: Denies cough, excessive phlegm production or shortness of breath with exertion Gastrointestinal Gastrointestinal: Denies abdominal pain, nausea or vomiting Genitourinary Genitourinary: Denies dysuria Musculoskeletal Musculoskeletal: Denies joint pain or joint swelling Integumentary Integumentary: Denies rash or wounds Neurologic Neurologic: Denies focal weakness, numbness or tingling Psychiatric Psychiatric: Denies anxiety, auditory hallucinations, depression, homicidal ideation or suicidal ideation Vital Signs Vital Signs Vital Signs: 01/06/23 18:55 Temperature 98.1 F Temperature Source Temporal Pulse Rate 87 Respiratory Rate 18 Blood Pressure 121/58 H Blood Pressure Mean 79 Blood Pressure Source Monitor Pulse Ox 93 Oxygen Delivery Method Room Air Physical Exam Const alert General Appearance: cooperative HEENT normocephalic Eyes PERRL and EOMs intact bilaterally Neck supple, no JVD and no carotid bruits Resp normal respiratory effort, normal air movement and clear to auscultation bilaterally Cardio regular rate and regular rhythm GI normal to inspection, nondistended, normoactive bowel sounds, non-tender and non-distended Extremity normal capillary refill Extremity Narrative: Right knee immobilizer. General Extremity: Negative for edema Skin no rashes or lesions noted General Skin Exam: no breakdown Psych affect normal Appearance: appropriate Results Lab / Micro Data Result Diagrams: 01/07/23 05:33 01/07/23 05:33 Assessment & Plan Assessment/Plan (1) Debility: (2) Bicondylar fracture of right tibia: (3) Restless leg syndrome: (4) Hypertension: PLAN: Plan 77 year old female with below past medical history hospitalized for right lateral tibial plateau fracture of tibia, admitted to TCU with debility, here for rehabilitation, strengthening, prior to discharge home alone. * Debility - PT/OT. * Pain - Tylenol 1000mg q8h, Ibuprofen 200mg bidcm, Oxycodone 2.5mg - 5mg q4h prn. * Bowel - senna/colace 2 tablets bid, Dulcolax 10mg pr x 1 prn, MOM 30ml po x 1 prn. * Adult immunization - Administer pneumonia vaccine, covid19 vaccine, flu vaccine as appropriate. * DVT prophylaxis - Eliquis 2.5mg bid x 30 days. * Hypertension - Metoprolol succinate 12.5mg daily. * Restless leg syndrome - Mirapex 1mg tid.
[2023-01-06] MEDS: Pramipexole Di-HCl 1 MG Tablet PO (21:09)
[2023-01-07 05:35] VITALS: BP 119/68; PULSE 71
[2023-01-07 05:36] VITALS: BP 119/68; PULSE 71
[2023-01-07] MEDS: APIXABAN 2.5 MG TABLET (WCH) PO ×2 (05:36→17:26)
[2023-01-07] MEDS: Metoprolol(XL)Succ 25 MG Tablet 12.5 MG PO (05:36)
[2023-01-07] MEDS: Pramipexole Di-HCl 1 MG Tablet PO ×3 (05:37→20:25)
[2023-01-07 05:57] LABS: Absolute Lymphocyte Count 1.27 X10^3/uL (0.83-4.51); Absolute Neutrophil Count 3.1 X10^3/uL (2.0-7.7); Basophil# 0.04 X10^3/uL; Basophil% 0.8 % (0-1); Eosinophils% 5.6 % (0-5); Hematocrit 36.1 % (37-47); Hemoglobin 11.6 g/dL (12.0-15.0); Lymphocyte # 1.27 X10^3/ul (0.83-4.51); Lymphocyte % 23.9 % (19-41); Mean Corp Hgb Conc 32.1 g/dL (32-36); Mean Corpuscular Hgb 29.3 pg (27.0-32.0); Mean Corpuscular Volume 91.2 fL (81-99); Mean Platelet Vol. 10.7 fl (6.2-12.0); Monocyte% 11.3 % (0-10); NRBC Flagged by Analyzer 0 % (0-5); Neutrophil # 3.09 X10^3/uL (2.7-7.7); Neutrophil % 58.2 % (47-70); Platelet Count 170 K/mm3 (150-450); RBC Distribution Width CV 13.2 % (11.6-14.6); RBC Distribution Width SD 44.4 fl (35.1-43.9); Red Blood Count 3.96 M/mm3 (4.2-5.4); White Blood Count 5.3 K/mm3 (4.4-11.0)
[2023-01-07] MEDS: Menthol/Lanolin/Calamine/Znox 113 GM Tube 1 APPLIC TOPICAL ×2 (06:34→17:26)
[2023-01-07 06:51] LABS: Anion Gap 7 (5-15); BUN 30 mg/dL (7-18); Calcium,Total 8.8 mg/dL (8.5-10.1); Chloride 109 mmol/L (98-107); EST Glomerular Filtration Rate 57 mL/min (>60); Est Glom Filt Rate - Afr Amer 69 mL/min (>60); Estimated Creatinine Clearance 41.72 ml/min; Glucose 97 mg/dL (74-106); Potassium 4.3 mmol/L (3.5-5.1); Sodium Level 140 mmol/L (136-145)
--- NOTE | 2023-01-07 08:12 | PCM.PN.DRR ---
TCU RX Drug Regimen Review Subjective: TCU Admission. 77 YOF presented to the ER with a fall. Hospitalized for right lateral tibial plateau fracture of tibia. Admitted to TCU with debility for strengthening and rehabilitation. Objective: Allergies No Known Allergies Allergy (Verified 01/02/23 09:41) Current Medications Generic Name Dose Route Start Last Admin Trade Name Freq PRN Reason Stop Dose Admin Acetaminophen 1,000 mg 01/07/23 07:46 Acetaminophen 500 Mg Tablet PO Q6H PRN PRN Pain Score 1-10 Apixaban 2.5 mg 01/07/23 06:00 01/07/23 05:36 Apixaban 2.5 Mg Tablet ([facility]) PO 02/04/23 23:59 2.5 mg BID AIMEE Administration Bisacodyl 10 mg 01/06/23 20:59 Bisacodyl 10 Mg Suppository RC X1 PRN Constipation Calamine/Phenol 1 applic 01/07/23 06:00 01/07/23 06:34 Menthol/Lanolin/Calamine/Znox 113 Gm Tube TOPICAL 1 applic BID AIMEE Administration Protocol Sodium Chloride 250 mls @ 15 mls/hr 01/06/23 20:42 IV .[id number] PRN Saline Flush Sodium Chloride 250 mls @ 15 mls/hr 01/06/23 20:42 IV .[id number] PRN Additional IVPB Infusion Ibuprofen 200 mg 01/06/23 21:41 Ibuprofen 200 Mg Tablet PO BID PRN PRN Pain 1-10 Magnesium Hydroxide 30 ml 01/06/23 20:59 Magnesium Hydroxide 30 Ml Udc PO X1 PRN Constipation Metoprolol Succinate 12.5 mg 01/07/23 06:00 01/07/23 05:36 Metoprolol(Xl)Succ 25 Mg Tablet PO 12.5 mg DAILY AIMEE Administration Oxycodone HCl 2.5 - 5 mg 01/06/23 18:51 Oxycodone 5 Mg Tablet PO Q4H PRN PRN Pain Score 4-10 Pramipexole Dihydrochloride 1 mg 01/06/23 22:00 01/07/23 05:37 Pramipexole Di-Hcl 1 Mg Tablet PO 1 mg TID AIMEE Administration Senna/Docusate Sodium 2 tablet 01/06/23 21:00 01/07/23 05:38 Senna/Docusate Sodium 1 Tablet PO Not Given BID AIMEE Sodium Chloride 10 - 40 ml 01/06/23 20:42 0.9% Saline Lock 10 Ml Syringe IV UD PRN SALINE FLUSH Tuberculin PPD 0.1 ml 01/07/23 10:00 Tuberculin,Purif.Prot.Deriv. 50 Tu/Ml Vial ID 01/07/23 10:01 X1 ONE Tuberculin PPD 0.1 ml 01/14/23 10:00 Tuberculin,Purif.Prot.Deriv. 50 Tu/Ml Vial ID 01/14/23 10:01 X1 ONE Problem List (Last Updated 01/06/23 @ 20:[address] Wei Rodriguez MD) Debility (Acute) Bicondylar fracture of right tibia (Acute) Restless leg syndrome (Acute) Hypertension (Chronic) Vital Signs Temp Pulse Resp BP Pulse Ox O2 Del Method 98.1 F 71 18 119/68 93 Room Air 01/06/23 18:55 01/07/23 05:36 01/06/23 19:00 01/07/23 05:36 01/06/23 19:00 01/06/23 19:00 Oxygen Delivery Method Room Air Weight: 82.185 kg Body Mass Index (BMI) 30.1 Sodium 140 mmol/L (136-145) 01/07/23 05:33 Potassium 4.3 mmol/L (3.5-5.1) 01/07/23 05:33 Chloride 109 mmol/L (98-107) H 01/07/23 05:33 Carbon Dioxide 24.0 mmol/L (21.0-32.0) 01/07/23 05:33 Anion Gap 7 (5-15) 01/07/23 05:33 BUN 30 mg/dL (7-18) H 01/07/23 05:33 Creatinine 1.00 mg/dL (0.55-1.02) 01/07/23 05:33 Est GFR (MDRD) Af Amer 69 mL/min (>60) 01/07/23 05:33 Est GFR (MDRD) Non-Af 57 mL/min (>60) L 01/07/23 05:33 BUN/Creatinine Ratio 30.0 RATIO (10-20) H 01/07/23 05:33 Glucose 97 mg/dL (74-106) 01/07/23 05:33 Assessment/Plan: 1. Pain: acetaminophen 1000mg PO Q6H PRN pain 1-10, ibuprofen 200mg BID PRN pain 1-10 and oxycodone 2.5-5mg PO Q4H PRN pain 4-10. Resident has not used any PRN doses. Please continue to monitor for increased pain and PRN usage. 2. Bowel: senna/docusate 2T PO BID, bisacodyl 10mg RC x1 PRN constipation and MOM 30mL PO x1 PRN constipation. Resident has not used any PRN doses. Please continue to monitor for constipation and PRN usage. No documented bowel movements so far. 3. DVT prophylaxis: apixaban 2.5mg PO BID thru 02/04/23. Please continue to monitor for S/S of bleeding/DVT (ibuprofen also ordered, if starts taking doses the risk of bleeding increases) and hemoglobin (last 11.6g/dL). 4. Hypertension: metoprolol succinate 12.5mg PO daily. Please continue to monitor HR (last 71) and BP (last 119/68). 5. Restless leg syndrome: pramipexole 1mg PO TID. Please continue to monitor for S/S of restless legs, drowsiness and dizziness. Assessment/Plan for indications treated with psychotropic medications: None Medical chart and medication regimen reviewed. The following medication irregularities or issues were identified: None Date of Note:: 01/07/23
[2023-01-07] MEDS: Tuberculin,Purif.prot.deriv. 50 TU/ML Vial 0.1 ML ID (09:23)
--- NOTE | 2023-01-07 12:41 | NURSING ---
Custom Feed Mill Operator Helper Note; Activity Asset: Tammy Mathew is independent in her choice of daily activities. she stated she prefers to not attend group activities or see the pharmacy affairs assistant and is afraid of dogs. Please NO dog visits. Priyanka is used to being independent and not much family around. She prefers to read and is fine with her books, computer and TV.
[2023-01-07 14:51] VITALS: BP 147/75; PULSE 95; RESP 18; TEMP 36.3; O2SAT 94
--- NOTE | 2023-01-07 15:02 | NURSING ---
Addendum entered by Gladys Sousa 01/07/23 15:08: Spoke with patient who stated that all her vaccine records from other locations are in her computer at home and she would like to wait until she reviews her records and f/u with her PCP for any vaccinations. Original Note: Contacted patient's PCP, they have no record of any vaccinations other than covid19
[2023-01-07 20:00] VITALS: PULSE 84; RESP 16; O2SAT 94
[2023-01-07] MEDS: Ibuprofen 200 MG Tablet PO (22:10)
[2023-01-08 05:16] VITALS: BP 110/60; PULSE 66
[2023-01-08] MEDS: Metoprolol(XL)Succ 25 MG Tablet 12.5 MG PO (05:16)
[2023-01-08] MEDS: APIXABAN 2.5 MG TABLET (WCH) PO ×2 (05:17→18:47)
[2023-01-08] MEDS: Pramipexole Di-HCl 1 MG Tablet PO ×3 (05:18→20:45)
[2023-01-08] MEDS: Menthol/Lanolin/Calamine/Znox 113 GM Tube 1 APPLIC TOPICAL ×2 (05:18→18:49)
[2023-01-08 14:56] VITALS: BP 128/64; PULSE 75; RESP 16; TEMP 36.2; O2SAT 97
--- NOTE | 2023-01-08 15:52 | CONS.ORTHO ---
HPI Consult Data Date of Consult: 01/08/23 HPI Narrative HPI Narrative: DERIC BOO, is a 77 F who presented to [facility] [place] emergency department 01/02/2023 After a mechanical fall from standing height in her garage when her foot caught a floor mat causing her to land on her right knee. She noted pain at that time, injury was sustained on 01/01/2023. She noted significant pain with weightbearing. She states she went to the emergency department for pain medicine. X-rays in the ED revealed a nondisplaced lateral tibial plateau fracture. Patient lives at home alone. I was contacted by the emergency department at that time recommended nonweightbearing with a knee immobilizer to the left knee. Patient was admitted under service hospitalist. She subsequently underwent physical occupational therapy evaluations and was discharged to assisted facility. I saw the patient in consultation today. At time of examination, patient reports some soreness in her right knee but otherwise denies any complaints. Denies fevers, chills, nausea or vomiting, chest pain or shortness of breath. She states she has been compliant with the nonweightbearing restrictions. She is frustrated due to loss of independence and wished to go home soon as possible. Denies any antecedent right knee pain. [facility] Medical History (Updated 01/06/23 @ 20:[address] Wei Rodriguez MD) Bicondylar fracture of right tibia Hypertension Restless leg syndrome Home Medications ibuprofen 125 mg-acetaminophen 250 mg tablet (Advil Dual Action) 2 tab PO BID RA 01/02/23 [History Last Taken 01/02/23 08:00] metoprolol succinate 25 mg capsule sprinkle, ext. release 24 hr 12.5 mg PO DAILY bp 01/02/23 [History Last Taken 01/02/23 08:00] ropinirole 2 mg tablet 4 mg PO TID restless legs 01/02/23 [History Last Taken 01/02/23 08:00] apixaban 2.5 mg tablet (Eliquis) 2.5 mg PO BID Blood Thinner 01/06/23 [History Last Taken Unknown] oxycodone 5 mg tablet 2.5 - 5 mg PO Q4H PRN PRN Pain Score 4-10 3 days #7 tabs 01/06/23 [Rx Last Taken Unknown] Allergy/AdvReac Type Severity Reaction Status Date / Time No Known Allergies Allergy Verified 01/02/23 09:41 Family History Other Heart disease Surgical History H/O: hysterectomy Social History (Updated 01/06/23 @ 20:[address] Wei Rodriguez MD) household members: none Smoking Status: Former smoker alcohol intake: never substance use type: does not use ROS ROS Narrative 12 point review system systems obtained, negative unless otherwise noted in HPI Vital Signs Vital Signs Vital Signs: 01/07/23 20:00 01/07/23 22:00 01/08/23 05:16 Temperature Temperature Source Pulse Rate 84 66 Pulse Rhythm Regular Pulse Strength Normal (2+) Normal (2+) Respiratory Rate 16 Respiratory Effort Normal Non-Labored Respiratory Depth Normal Respiratory Pattern Normal Blood Pressure 110/60 Blood Pressure Mean Blood Pressure Source Blood Pressure Position Blood Pressure Location Pulse Ox 94 Oxygen Delivery Method Room Air 01/08/23 10:00 01/08/23 10:00 01/08/23 14:56 Temperature 97.2 F L Temperature Source Temporal Pulse Rate 75 Pulse Rhythm Regular Pulse Strength Normal (2+) Normal (2+) Respiratory Rate 16 Respiratory Effort Normal Non-Labored Respiratory Depth Normal Respiratory Pattern Normal Blood Pressure 128/64 H Blood Pressure Mean 85 Blood Pressure Source Monitor Blood Pressure Position Semi-Fowlers Blood Pressure Location Right Arm Pulse Ox 97 Oxygen Delivery Method Room Air Room Air Weight Weight: 181 lb 3 oz Body Mass Index (BMI) 30.1 Physical Exam Narrative General -A&Ox3, NAD, appears stated age. Vital signs stable, afebrile. Respiratory -normal work of breathing, no intercostal retractions. CV -pulses regular, brisk capillary refill ?4 limbs. Abdomen-soft, nontender, nondistended. No guarding, rigidity, rebound tenderness. Musculoskeletal/neurologic -full range of motion nontender throughout bilateral upper extremities, left lower extremity with full sensation and strength in all dermatomes and myotomes. No midline cervical tenderness. Right lower extremity-no obvious deformity. Tenderness to palpation lateral tibial plateau without gross deformity. Minimal soft tissue swelling. 1+ right knee effusion. Brisk capillary refill. Sensation intact light touch L3-S1 dermatomes. DF, PF, EHL intact. DP, PT 2+. Pelvis is stable, nontender. Skin is intact without lacerations, abrasions. No ecchymosis noted. Lab / Micro Data Result Diagrams: 01/07/23 05:33 01/07/23 05:33 Micro: Microbiology 01/08/23 05:30 Nasal Secretion SARS-CoV-2 Antigen (Rapid) - Final Assessment & Plan Assessment/Plan (1) Closed nondisplaced fracture of right tibial plateau: PLAN: Patient sustained a nondisplaced Lateral tibial plateau fracture of the right knee. Given the alignment, nonoperative management is recommended. Knee immobilizer at this time. Plan to transition to T ROM hinged knee brace next week. We will plan to add approximately 20 degrees of flexion per week to reach a goal of 90 degrees x 6 weeks post injury. I will order x-rays today. Plan to follow-up in 2 weeks with x-rays. We will likely plan on nonweightbearing until 6 weeks from injury. Continue physical occupational therapies. Patient on Eliquis for DVT prophylaxis. Please call sooner if any questions or concerns arise.
--- NOTE | 2023-01-08 16:00 | RAD_ITS ---
STUDY: X-RAY - RIGHT KNEE REASON FOR EXAM: Female, 77 years old. Follow-up tibial plateau fx -- AP, LAT ONLY TECHNIQUE: 2 view(s) of the knee. COMPARISON: January 02, 2023 FINDINGS: Normal visualized distal femur. Normal visualized proximal fibula. Healing intra-articular fracture of the medial tibial plateau. Normal proximal tibiofibular articulation. Early healing fracture of the anterior patella cortex with prepatellar soft tissue swelling Narrowed medial femorotibial compartment. Normal lateral femorotibial compartment. Normal patellofemoral articulation. The soft tissue structures are unremarkable. RAD/Knee 1 or 2 Views IMPRESSION: Mild degenerative changes. Healed fracture of the medial tibial plateau. Hairline fracture of the anterior patellar cortex of the patella soft tissue swelling with early callus deposition Electronically Signed: Allan Foote MD at 17:42 EDT ,
--- NOTE | 2023-01-08 17:10 | CASEMGMT ---
Social Work Met with patient to complete initial assessment. Introduced to self and role. Verified contact information. Discussed code status and MOLST form. Patient was listed as a DNRCC-A but after looking at MOLST and reflecting on whether would want CPR, patient decided would like a trial of CPR, but does not want to have measures continue if there are no brain waves. MOLST form placed in Dr. Rodriguez's chart. Answered question about insurance coverage and let patient know that patient may want to call insurance for full SNF benefits. Patient showed this rfp writer communication with insurance and had noted how many covered days approved already. Educated to plan of care meetings, and that SW will update on covered days as known. Patient's goal is to return home at discharge, where patient lives alone. Patient realistic that will need some additional support and is willing to hire help. Patient expressed desire for SW to provide some resources. Patient talkative, tearful at times while reflecting on past life experiences. Much supportive listening and reflection offered to patient who expressed much thanks for having time to process thoughts and feelings. Plan: Social work to follow for support as needed and discharge planning. Patient's goal is to return home. Would be open to tie knitter helper at home and even [facility]. -KRISTAL Navarro
[2023-01-08] MEDS: 0.9% Saline Lock 10 ML Syringe IV (18:48)
[2023-01-08] MEDS: Ibuprofen 200 MG Tablet PO (20:48)
[2023-01-09] MEDS: Menthol/Lanolin/Calamine/Znox 113 GM Tube 1 APPLIC TOPICAL ×2 (05:38→16:51)
[2023-01-09 05:40] VITALS: BP 109/63; PULSE 67
[2023-01-09] MEDS: Pramipexole Di-HCl 1 MG Tablet PO ×3 (05:40→21:04)
[2023-01-09] MEDS: APIXABAN 2.5 MG TABLET (WCH) PO ×2 (05:40→16:51)
[2023-01-09] MEDS: Metoprolol(XL)Succ 25 MG Tablet 12.5 MG PO (05:40)
--- NOTE | 2023-01-09 13:38 | NURSING ---
Order from Dr. Caputo for CT lower extremity, right knee. [facility], reference #[id number], approval #[id number]. Order faxed to CT.
[2023-01-09 16:00] VITALS: BP 132/66; PULSE 83; RESP 16; TEMP 36.4; O2SAT 96
[2023-01-09 22:00] VITALS: PULSE 86; RESP 16; O2SAT 96
[2023-01-10] MEDS: APIXABAN 2.5 MG TABLET (WCH) PO ×2 (05:56→17:06)
[2023-01-10] MEDS: Pramipexole Di-HCl 1 MG Tablet PO ×3 (05:56→20:57)
[2023-01-10] MEDS: Menthol/Lanolin/Calamine/Znox 113 GM Tube 1 APPLIC TOPICAL ×2 (05:57→17:08)
[2023-01-10 05:58] VITALS: BP 120/62; PULSE 69
[2023-01-10] MEDS: Metoprolol(XL)Succ 25 MG Tablet 12.5 MG PO (05:58)
[2023-01-10 15:17] VITALS: BP 151/58; PULSE 89; RESP 21; TEMP 36.2; O2SAT 90
[2023-01-10] MEDS: Senna/Docusate Sodium 1 Tablet 2 TABLET PO (17:06)
--- NOTE | 2023-01-10 23:06 | NURSING ---
Pt noted by MORTAR CARRIER to be self-transferring. Pt stated she was having some urgency with her bowels and did not want to be incontinent. Pt educated by this nurse to use call light, educated on risks of self-transferring as pt is NWB on RLE. Pt states understanding and asks to have stool softeners switched to PRN. RN aware. Note left for Dr. Rodriguez.
[2023-01-10] MEDS: Ibuprofen 200 MG Tablet PO (23:22)
[2023-01-11] MEDS: Menthol/Lanolin/Calamine/Znox 113 GM Tube 1 APPLIC TOPICAL ×2 (05:23→17:43)
[2023-01-11] MEDS: Pramipexole Di-HCl 1 MG Tablet PO ×3 (05:23→20:48)
[2023-01-11] MEDS: APIXABAN 2.5 MG TABLET (WCH) PO ×2 (05:23→17:43)
[2023-01-11 05:25] VITALS: BP 118/52; PULSE 72
[2023-01-11] MEDS: Metoprolol(XL)Succ 25 MG Tablet 12.5 MG PO (05:25)
[2023-01-11 14:57] VITALS: BP 118/66; PULSE 77; RESP 16; TEMP 36.8; O2SAT 97
[2023-01-11 22:38] VITALS: O2SAT 97
[2023-01-12 06:02] VITALS: BP 119/53; PULSE 68
[2023-01-12] MEDS: Metoprolol(XL)Succ 25 MG Tablet 12.5 MG PO (06:02)
[2023-01-12] MEDS: Ibuprofen 200 MG Tablet PO (06:02)
[2023-01-12] MEDS: Pramipexole Di-HCl 1 MG Tablet PO ×3 (06:02→21:31)
[2023-01-12] MEDS: APIXABAN 2.5 MG TABLET (WCH) PO ×2 (06:03→17:08)
[2023-01-12 15:50] VITALS: BP 112/64; PULSE 71; RESP 16; TEMP 36.4; O2SAT 97
--- NOTE | 2023-01-12 16:35 | CASEMGMT ---
Social Work Insurance issued LCD 01/14, DC 01/15. Sw spoke with pt and pt is agreeable to DC home. SW offered HHC vs OP therapy. Pt prefers skilled HHC and accepting of a list of providers including quality and resource data via [employer] guide. Pt needs FWW. SW sent referral to [facility] via [facility]. SW provided resources for nonskilled JEWISH HISTORY PROFESSOR, cleaning assistance and transportation services, per pt request. Cousin to transport at DC BIMS () and PHQ-9 (10/03) completed for MDS assessment. Plan: DC home alone 01/15, HHC PT/OT, FWW Heather Espinosa, TRACTOR SWEEPER OPERATOR BOOK STORE ASSOCIATE
--- NOTE | 2023-01-12 20:09 | DS.PCM_ITS ---
Providers Date of Admission: 01/06/23 Primary Care Physician: Dr. Julio C Washington MD Reason For Visit: DEBILITY, TIBIAL PLATEAU FRACTURE Diagnosis Discharge Diagnosis (1) Closed nondisplaced fracture of right tibial plateau: Status: Acute Code(s): S82.144A - Nondisplaced bicondylar fracture of right tibia, initial encounter for closed fracture Plan 77 year old female with below past medical history hospitalized for right l ateral tibial plateau fracture of tibia, admitted to TCU with debility, here for rehabilitation, strengthening, prior to discharge home alone. * Debility - PT/OT. * Pain - Tylenol 1000mg q8h, Ibuprofen 200mg bidcm, Oxycodone 2.5mg - 5mg q4h prn. * Bowel - senna/colace 2 tablets bid, Dulcolax 10mg pr x 1 prn, MOM 30ml po x 1 prn. * Adult immunization - Administer pneumonia vaccine, covid19 vaccine, flu vaccine as appropriate. * DVT prophylaxis - Eliquis 2.5mg bid x 30 days. * Hypertension - Metoprolol succinate 12.5mg daily. * Restless leg syndrome - Mirapex 1mg tid. Medications at Discharge Home Medications metoprolol succinate 25 mg capsule sprinkle, ext. release 24 hr 12.5 mg PO DAILY bp 01/02/23 ropinirole 2 mg tablet 4 mg PO TID restless legs 01/02/23 apixaban 5 mg tablet (Eliquis) 2.5 mg PO BID 20 days #20 tabs 01/12/23 Hospital Course Operations None Procedures None Summary of Care Provided Minutes Spent on Discharge: 35 Hospital Course: 77 year old female with below past medical history hospitalized for right lateral tibial plateau fracture of tibia, admitted to TCU with debility, here for rehabilitation, strengthening, prior to discharge home alone. Dr. Caputo saw resident 01/08/2023, Dr. Cpauto planning on seeing resident week of 01/11/2023. She is wearing right knee immobilizer. Non-weight bearing right lower extremity thru 02/13/2023. Discharge home alone 01/15/2023, Home Health Care PT/OT, Front Wheeled Walker. Physical Exam Const alert General Appearance: cooperative HEENT normocephalic Eyes PERRL and EOMs intact bilaterally Neck supple, no JVD and no carotid bruits Resp normal respiratory effort, normal air movement and clear to auscultation bi laterally Cardio regular rate and regular rhythm GI normal to inspection, nondistended, normoactive bowel sounds, non-tender and non-distended Extremity normal capillary refill General Extremity: Negative for edema Skin no rashes or lesions noted General Skin Exam: no breakdown Psych affect normal Appearance: appropriate Weight / BMI Weight Weight: 82.185 kg Body Mass Index (BMI) 30.1 ABG / Lab / Microbiology Data Result Diagrams: 01/07/23 05:33 01/07/23 05:33 Microbiology: Microbiology 01/08/23 05:30 Nasal Secretion SARS-CoV-2 Antigen (Rapid) - Final D/C Instructions Discharge Diet: No restrictions Discharge Activity: Return to Normal Activity, May Shower and Use Walker Weight Bearing Status: No weight bearing (Right lower extremity until cleared by Dr. Caputo.) Call your doctor if you observe: Fever of 101 or Higher, Inability to urinate, Inability to have a bowel movement, Shortness of breath, Dizziness, Fainting spells, Swelling in the ankles, Chest pain and Uncontrolled pain Additional Instructions: Discharge home alone 01/15/2023, Home Health Care PT/OT, Front Wheeled Walker. Please Follow Up With: Dr. Caputo When: as scheduled. Meaningful Use Info Meaningful Use Diagnoses (Choose all that apply): None applicable Discharge Plan Admission Admit Date/Time: 01/06/23 18:30 Primary Reason for Your Visit: Debility. Attending Provider: Wei Rodriguez Chi Primary Care Provider: Julio C Washington Instructions Additional Instructions / Restrictions: arge home alone 01/15/2023, Home Health Care PT/OT, Front Wheeled Walker. Discharge Orders/Prescriptions Prescriptions: New Eliquis 5 mg Tablet 2.5 mg PO BID 20 Days Qty: 20 0RF Continued ropinirole 2 mg Tablet 4 mg PO TID metoprolol succinate 25 mg Capsule,Sprinkle,Er 24hr 12.5 mg PO DAILY Discontinued Advil Dual Action 125-250 mg Tablet 2 tab PO BID oxycodone 5 mg Tablet 2.5 - 5 mg PO Q4H PRN PRN (Reason: Pain Score 4-10) 3 Days Qty: 7 0RF Eliquis 2.5 mg tablet 2.5 mg PO BID Referrals / Follow Up: Wei Rodriguez Chi, MD [Med Staff - Active Staff] - 01/15/23 Disposition Disposition (needs filled in before D/C Order can be placed): Home Health Service
[2023-01-13] MEDS: APIXABAN 2.5 MG TABLET (WCH) PO ×2 (04:52→17:27)
[2023-01-13 04:53] VITALS: BP 115/62; PULSE 67
[2023-01-13] MEDS: Metoprolol(XL)Succ 25 MG Tablet 12.5 MG PO (04:53)
[2023-01-13] MEDS: Pramipexole Di-HCl 1 MG Tablet PO ×3 (04:53→21:23)
--- NOTE | 2023-01-13 08:52 | CASEMGMT ---
Addendum entered by Heather Espinosa 01/13/23 14:04: Pt requesting w/c through insurance instead of FWW. Pt to purchase FWW. New script sent to [employer]. [facility] can accept - SOC 01/16 Original Note: Social Work Pt requesting to speak to this worker. SW presented to room. Answered pt's questions. Pt selected [facility] for PT/OT. Inquired about a shower chair. SW educated insurance does not pay for shower chairs, and pt can purchase OOP at local drug store. Pt expressed understsanding. Pt's cousin to transport pt home at 6 pm on 01/15. Phoned referral to [facility]. Heather Espinosa, HEIDI CARDIOTHORACIC ICU RN
[2023-01-13 15:22] VITALS: BMI 29.7
[2023-01-13 15:37] VITALS: BP 123/68; PULSE 85; RESP 16; TEMP 37.2; O2SAT 94
[2023-01-13] MEDS: Menthol/Lanolin/Calamine/Znox 113 GM Tube 1 APPLIC TOPICAL (17:28)
[2023-01-13 21:00] VITALS: PULSE 74; RESP 16; O2SAT 96
[2023-01-14 05:53] LABS: Absolute Lymphocyte Count 1.61 X10^3/uL (0.83-4.51); Absolute Neutrophil Count 3.6 X10^3/uL (2.0-7.7); Basophil# 0.03 X10^3/uL; Basophil% 0.5 % (0-1); Eosinophil# 0.21 X10^3/uL; Eosinophils% 3.5 % (0-5); Hematocrit 38.3 % (37-47); Lymphocyte # 1.61 X10^3/ul (0.83-4.51); Lymphocyte % 26.7 % (19-41); Mean Corp Hgb Conc 31.3 g/dL (32-36); Mean Corpuscular Volume 92.5 fL (81-99); Monocyte# 0.52 X10^3/uL; Monocyte% 8.6 % (0-10); NRBC Flagged by Analyzer 0 % (0-5); Neutrophil # 3.64 X10^3/uL (2.7-7.7); Neutrophil % 60.2 % (47-70); Platelet Count 211 K/mm3 (150-450); RBC Distribution Width SD 44.1 fl (35.1-43.9); Red Blood Count 4.14 M/mm3 (4.2-5.4)
[2023-01-14 05:56] VITALS: BP 119/76; PULSE 68
[2023-01-14] MEDS: APIXABAN 2.5 MG TABLET (WCH) PO ×2 (05:56→17:36)
[2023-01-14] MEDS: Metoprolol(XL)Succ 25 MG Tablet 12.5 MG PO (05:56)
[2023-01-14] MEDS: Pramipexole Di-HCl 1 MG Tablet PO ×3 (05:58→19:59)
[2023-01-14 06:42] LABS: Anion Gap 5 (5-15); BUN 25 mg/dL (7-18); BUN/Creat Ratio 25.6 RATIO (10-20); Calcium,Total 8.6 mg/dL (8.5-10.1); Chloride 111 mmol/L (98-107); Creatinine, Serum 0.98 mg/dL (0.55-1.02); EST Glomerular Filtration Rate 58 mL/min (>60); Est Glom Filt Rate - Afr Amer 71 mL/min (>60); Estimated Creatinine Clearance 42.57 ml/min; Glucose 94 mg/dL (74-106); Sodium Level 141 mmol/L (136-145)
--- NOTE | 2023-01-14 10:00 | NURSING ---
Dr. Caputo office contacted to update that patient leaving tomorrow. Staff reports she would make doctor aware so he can come see patient before D/C and place T-ROM brace. Also set up patient 2 week follow-up with Dr. Caputo. Patient made aware.
--- NOTE | 2023-01-14 10:21 | CASEMGMT ---
Social Work IDT met with patient for care plan meeting. Discussed patient's progress in PT/OT/SN. Insurance issued DC 01/15. Pt agreeable to DC home alone. SW provided community resources already. W/C is approved and will be delivered to pt's room this date. Pt will be purchasing FWW and shower chair. Pt states her cousin can no longer transport her home. SW contacted [facility] and can transport at 1600 at the main entrance. Updated pt. Heather Espinosa, HEIDI HARTW
[2023-01-14] MEDS: Tuberculin,Purif.prot.deriv. 50 TU/ML Vial 0.1 ML ID (11:25)
[2023-01-14 15:07] VITALS: BP 118/72; PULSE 86; RESP 14; TEMP 36.3; O2SAT 94
[2023-01-15 06:02] VITALS: BP 128/58; PULSE 69
[2023-01-15] MEDS: Metoprolol(XL)Succ 25 MG Tablet 12.5 MG PO (06:02)
[2023-01-15] MEDS: APIXABAN 2.5 MG TABLET (WCH) PO (06:04)
[2023-01-15] MEDS: Pramipexole Di-HCl 1 MG Tablet PO ×2 (06:04→15:08)
[2023-01-15 10:00] VITALS: PULSE 82; RESP 18; O2SAT 98
--- NOTE | 2023-01-15 10:39 | NURSING ---
Dr Caputo's office called to say he would not be in today to change patients brace. Per office, brace will be changed at f/u appt. pt aware.
--- NOTE | 2023-01-15 11:12 | NURSING ---
Faxed letter to Meeta Jacinto at [facility] from Dr. Rodriguez, stating pt is unable to take her trash to the curb and requires it to be picked up at her door step.
[2023-01-15 15:17] VITALS: BP 114/65; PULSE 90; RESP 14; TEMP 36.7; O2SAT 95
--- NOTE | 2023-01-19 11:24 | MDS.RN ---
Information for the mds was obtained from review of the clinical record, interview of resident, staff, and direct observation of resident's care.
== END 2023-01-15 15:30 | disposition home health service (06) | DRG 561 ==
PROVIDERS: Admitting Provider Family Medicine Geriatric Medicine; PCP Family Medicine; Visit Provider Family Medicine Geriatric Medicine
DX: S82.144D Nondisplaced bicondylar fracture of right tibia, subsequent encounter for closed fracture with routine healing (principal); G25.81 Restless legs syndrome; I10 Essential (primary) hypertension; W19.XXXD Unspecified fall, subsequent encounter; Z79.01 Long term (current) use of anticoagulants; Z87.891 Personal history of nicotine dependence; Z79.899 Other long term (current) drug therapy
CPT/HCPCS: 36415; 73560; 80048; 85025; 87811; 97110; 97116; 97162; 97166; 97530; 97535; 97802; A4216

== ENCOUNTER → 2023-01-09 | Outpatient (CLI) | payer MEDICARE, SELFPAY ==
--- NOTE | 2023-01-09 13:49 | CT_ITS ---
EXAM: CT RIGHT LOWER EXTREMITY WITHOUT INTRAVENOUS CONTRAST CLINICAL INDICATION: Unspecified fracture of shaft of right tibia, initial encounter f TECHNIQUE: Helically acquired images were obtained of the right lower extremity without intravenous contrast. 2-D reformats were performed by the technologist. CTDIvol = ( 15.35 ) mGy, DLP = ( 610.89 ) mGycm This CT exam was performed using one or more of the following dose reduction techniques: automated exposure control, adjustment of the mA and/or kV according to patient size, and/or use of iterative reconstruction technique. COMPARISON: No relevant prior studies available. FINDINGS: BONES/JOINTS: Subtle lucency concerning for acute displaced intra-articular fractures fracture involving the lateral tibial plateau. No other acute or healing fracture or malalignment. Small to moderate volume hemarthrosis. Preservation of the joint space. SOFT TISSUES: Prepatellar subcutaneous edema with no organized fluid collections. No soft tissue swelling or gas. No radiopaque foreign body. No Spicer''s cyst. CT/Extremity Lower without Contra IMPRESSION: Subtle lucency concerning for acute displaced intra-articular fractures fracture involving the lateral tibial plateau. Electronically Signed: Bassam Mcgowan MD at 21:36 EDT ,
== END | disposition home or self-care (01) ==
LOC: CT 13:48
PROVIDERS: PCP Family Medicine; Referring Provider Student in an Organized Health Care Education/Training Program; Visit Provider Student in an Organized Health Care Education/Training Program
DX: S82.201A Unspecified fracture of shaft of right tibia, initial encounter for closed fracture (principal)
CPT/HCPCS: 73700

== ENCOUNTER → 2023-01-15 | Outpatient (CLI) | payer MEDICARE, SELFPAY ==
[2023-01-15 18:10] LABS: Absolute Lymphocyte Count 1.62 X10^3/uL (0.83-4.51); Absolute Neutrophil Count 5.8 X10^3/uL (2.0-7.7); Basophil# 0.04 X10^3/uL; Basophil% 0.5 % (0-1); Eosinophil# 0.13 X10^3/uL; Eosinophils% 1.6 % (0-5); Hematocrit 40.9 % (37-47); Hemoglobin 12.9 g/dL (12.0-15.0); Lymphocyte # 1.62 X10^3/ul (0.83-4.51); Lymphocyte % 19.9 % (19-41); Mean Corp Hgb Conc 31.5 g/dL (32-36); Mean Corpuscular Hgb 29.3 pg (27.0-32.0); Mean Corpuscular Volume 92.7 fL (81-99); Mean Platelet Vol. 11.2 fl (6.2-12.0); Monocyte# 0.52 X10^3/uL; Monocyte% 6.4 % (0-10); NRBC Flagged by Analyzer 0 % (0-5); Neutrophil % 71.2 % (47-70); Platelet Count 257 K/mm3 (150-450); RBC Distribution Width SD 44.6 fl (35.1-43.9); Red Blood Count 4.41 M/mm3 (4.2-5.4); White Blood Count 8.1 K/mm3 (4.4-11.0)
[2023-01-15 19:19] LABS: ALB/GLOB Ratio 1.1 RATIO (0.9-2.4); AST(SGOT) 21 U/L (15-37); Alanine Aminotransfer ALT/SGPT 22 U/L (13-56); Albumin, Serum 3.7 g/dL (3.2-5.0); Alkaline Phosphatase 77 U/L (45-117); Anion Gap 5 (5-15); BUN 28 mg/dL (7-18); BUN/Creat Ratio 22.8 RATIO (10-20); Calcium,Total 9.4 mg/dL (8.5-10.1); Chloride 111 mmol/L (98-107); Creatinine, Serum 1.23 mg/dL (0.55-1.02); EST Glomerular Filtration Rate 45 mL/min (>60); Est Glom Filt Rate - Afr Amer 54 mL/min (>60); Globulin 3.5 g/dL (2.2-4.2); Glucose 99 mg/dL (74-106); Potassium 4.6 mmol/L (3.5-5.1); Protein, Total 7.2 g/dL (6.4-8.2); Sodium Level 141 mmol/L (136-145); Thyroid Stim Hormone (TSH) 2.66 uIU/mL (0.358-3.74)
[2023-01-15 20:13] LABS: Hepatitis C Antibody Non-Reactive (Nonreactive)
[2023-01-20 13:08] LABS: Albumin 3.1 g/dL (2.9-4.4); Alpha-1-Globulins 0.3 g/dL (0.0-0.4); Alpha-2-Globulins 0.9 g/dL (0.4-1.0); Gamma Globulin 0.9 g/dL (0.4-1.8); Immunoglobulin A 138 mg/dL (64-422); Immunoglobulin G 925 mg/dL (586-1602); Immunoglobulin M 85 mg/dL (26-217); PROEL- TOTAL PROTEIN 6.4 g/dL (6.0-8.5)
== END | disposition home or self-care (01) ==
LOC: LAB 17:27
PROVIDERS: PCP Family Medicine; Referring Provider Family Medicine Geriatric Medicine; Visit Provider Family Medicine Geriatric Medicine
DX: Z13.89 Encounter for screening for other disorder (principal); E55.9 Vitamin D deficiency, unspecified; I10 Essential (primary) hypertension
CPT/HCPCS: 36415; 80053; 82306; 82784; 84165; 84443; 85025; 86334; 86803

== ENCOUNTER → 2023-02-09 | Outpatient (CLI) | payer MEDICARE, SELFPAY ==
--- NOTE | 2023-02-09 14:44 | VDLE_ITS ---
Reason For Study: Right leg swelling RIGHT LEFT GSV is normal. CFV is compressible, spontaneous, phasic, CFV is compressible, spontaneous, phasic, competent, and demonstrates normal competent and demonstrates normal augmentation. augmentation. FV is compressible, spontaneous, phasic, competent and demonstrates normal augmentation. POP V is compressible, spontaneous, phasic, competent and demonstrates normal augmentation. T/P Trunk is compressible. PTV is compressible. RT PerV is compressible. Acute deep vein thrombosis is noted in the SoleusV. It is dilated and NONCOMPRESSIBLE. Procedure This is a venous duplex using B-mode, color flow and spectral Doppler. Exam performed in department. A preliminary report was called and/or faxed to PCP Office. VL/Venous Duplex US, Unilateral Interpretation Summary Acute deep venous thrombosis right soleus vein Patent and compressible right great saphenous vein Normal flow patterns left common femoral vein Ordering Physician: Kb Caputo Referring Physician: Wei Rodriguez Chi Performed By: Rubina Mcwilliams RVT
== END | disposition home or self-care (01) ==
LOC: CVS 14:43
PROVIDERS: PCP Family Medicine Geriatric Medicine; Referring Provider Student in an Organized Health Care Education/Training Program; Visit Provider Student in an Organized Health Care Education/Training Program
DX: R22.41 Localized swelling, mass and lump, right lower limb (principal)
CPT/HCPCS: 93971

== ENCOUNTER → 2023-03-03 | Outpatient (CLI) | payer MEDICARE, SELFPAY ==
--- NOTE | 2023-03-03 06:24 | ECHOD_ITS ---
Reason For Study: CHEST PAIN Procedure This was a 2D Doppler, Color Flow transthoracic echocardiogram. Exam performed in department. Left Ventricle Normal LV size. Left ventricular systolic function is normal. The estimated ejection fraction is 60 %. Stage 1 diastolic dysfunction. No regional wall motion abnormalities noted. Right Ventricle Normal RV size. Normal systolic function. Atria The left atrium is mildly enlarged. Normal right atrium. Mitral Valve Normal mitral valve. Tricuspid Valve Normal tricuspid valve. Mild (1+) tricuspid valve insufficiency. Pulmonary artery systolic pressure is 32 mmHg. Aortic Valve Normal aortic valve. Trisinus/trileaflet aortic valve. Pulmonic Valve Normal pulmonic valve. Great Vessels Normal aortic root. The pulmonary artery is normal size. Normal inferior vena cava. Pericardium/Pleural No pericardial effusion. MMode/2D Measurements & Calculations LVIDd: 4.6 cm IVSd: 1.1 cm Ao root diam: 3.4 cm LVIDs: 3.0 cm LVPWd: 0.88 cm RVDd: 4.1 cm FS: 34.8 % LAV(MOD-bp): 91.0 ml LVAd ap4: 25.8 cm2 SV(MOD-sp4): 43.8 ml LAV(MOD-bp) Indexed: 48.1 ml/m2 LVLd ap4: 7.3 cm LAV(MOD-sp2): 84.1 ml EDV(MOD-sp4): 78.8 ml LAV(MOD-sp4): 77.6 ml EDV(sp4-el): 77.4 ml LVAs ap4: 16.2 cm2 LVLs ap4: 6.7 cm ESV(MOD-sp4): 34.9 ml ESV(sp4-el): 33.3 ml EF(MOD-sp4): 55.6 % EF(sp4-el): 57.1 % SV(sp4-el): 44.2 ml LA A4 area: 25.6 cm2 LA dimension(2D): 4.2 cm RA A4 area: 17.8 cm2 Time Measurements MV dec time: 0.17 sec Doppler Measurements & Calculations MV E max rafael: 84.2 cm/sec Lat Peak E' Rafael: 12.0 cm/sec Med Peak E' Rafael: 10.5 cm/sec MV A max rafael: 69.7 cm/sec E/E' lat: 7.0 E/E' med: 8.1 MV E/A: 1.2 MV V2 max: 106.5 cm/sec Ao V2 max: 142.8 cm/sec MV max P.5 mmHg MV dec slope: 506.2 cm/sec2 Ao max P.2 mmHg MV V2 mean: 77.8 cm/sec Ao V2 mean: 100.4 cm/sec MV mean P.6 mmHg Ao mean P.6 mmHg MV V2 VTI: 32.8 cm Ao V2 VTI: 36.4 cm AV (velocity ratio): 0.85 LV V1 max: 115.0 cm/sec PA V2 max: 89.5 cm/sec TR max rafael: 268.4 cm/sec LV V1 max P.3 mmHg PA V2 mean: 69.4 cm/sec TR max P.8 mmHg LV V1 mean P.2 mmHg LV V1 mean: 84.0 cm/sec LV V1 VTI: 31.0 cm ECHO/Echo Complete Interpretation Summary Normal LV size. Left ventricular systolic function is normal. The estimated ejection fraction is 60 %. Stage 1 diastolic dysfunction. Mild (1+) tricuspid valve insufficiency. Ordering Physician: Wei Rodriguez Chi Referring Physician: Wei Rodriguez Chi Performed By: Inessa Pabon RCS
--- NOTE | 2023-03-04 17:20 | STRESSREP ---
Stress Test Report Pharmacologic myocardial perfusion stress test. 77-year-old lady with a history of chest pain Resting EKG demonstrates sinus rhythm with a rate of 73 bpm. Resting blood pressure is 142/82 mmHg. 0.4 mg of regadenoson was infused per usual protocol followed by rapid intravenous saline flush injection. Continuous EKG monitoring was performed. The maximum heart rate was 85 bpm which was 59% of max impacted heart rate the maximum workload was 1 metabolic equivalent. At rest there were no ST or T wave changes noted to suggest ischemia and at peak infusion nonspecific ST changes were noted which did not meet the criteria for ischemia. No clinical angina is noted. The final blood pressure was 139/74 mmHg. Myocardial perfusion protocol. 10.0 mCi of technetium 99m sestamibi was injected at rest. 0.4 mg of regadenoson was infused per usual protocol. At peak infusion 36 mCi of technetium 99m sestamibi was injected stress images were obtained stress and rest images were reconstructed and compared in the short axis vertical long and horizontal long axis. Gated images were also obtained. Perfusion SPECT analysis: Review of the stress images demonstrate normal uptake of tracer noted in all areas of the myocardium. The resting images similar demonstrated normal uptake of tracer noted in all areas of the myocardium. No areas of reversibility are noted to suggest ischemia and no previous infarct is noted. Gated SPECT analysis: The gated ejection fraction is 78%. Conclusion: Normal pharmacologic myocardial perfusion stress test. Preserved ejection fraction.
== END | disposition home or self-care (01) ==
LOC: CVS 06:12
PROVIDERS: PCP Family Medicine Geriatric Medicine; Referring Provider Family Medicine Geriatric Medicine; Visit Provider Family Medicine Geriatric Medicine
DX: R07.9 Chest pain, unspecified (principal)
CPT/HCPCS: 78452; 93017; 93306; A9500; A4216; J2785

== ENCOUNTER → 2023-03-16 | Outpatient (CLI) | payer MEDICARE, SELFPAY ==
[2023-03-16 18:07] LABS: Absolute Lymphocyte Count 1.27 X10^3/uL (0.83-4.51); Absolute Neutrophil Count 4.4 X10^3/uL (2.0-7.7); Basophil# 0.04 X10^3/uL; Basophil% 0.6 % (0-1); Eosinophil# 0.11 X10^3/uL; Eosinophils% 1.8 % (0-5); Hematocrit 39.9 % (37-47); Hemoglobin 12.6 g/dL (12.0-15.0); Lymphocyte # 1.27 X10^3/ul (0.83-4.51); Lymphocyte % 20.3 % (19-41); Mean Corp Hgb Conc 31.6 g/dL (32-36); Mean Corpuscular Hgb 29.5 pg (27.0-32.0); Mean Corpuscular Volume 93.4 fL (81-99); Mean Platelet Vol. 11.2 fl (6.2-12.0); Monocyte# 0.46 X10^3/uL; Monocyte% 7.4 % (0-10); NRBC Flagged by Analyzer 0 % (0-5); Neutrophil # 4.36 X10^3/uL (2.7-7.7); Neutrophil % 69.7 % (47-70); Platelet Count 224 K/mm3 (150-450); RBC Distribution Width CV 13.4 % (11.6-14.6); RBC Distribution Width SD 45.8 fl (35.1-43.9); Red Blood Count 4.27 M/mm3 (4.2-5.4); White Blood Count 6.3 K/mm3 (4.4-11.0)
[2023-03-16 18:26] LABS: Erythrocyte Sedimentation Rate 15 mm/hr (0-30)
[2023-03-16 18:37] LABS: AST(SGOT) 24 U/L (15-37); Alanine Aminotransfer ALT/SGPT 22 U/L (13-56); Albumin, Serum 3.7 g/dL (3.2-5.0); Alkaline Phosphatase 84 U/L (45-117); Anion Gap 6 (5-15); BUN 26 mg/dL (7-18); BUN/Creat Ratio 23.4 RATIO (10-20); CRP < 2.90 mg/L (0.0-3.0); Calcium,Total 9.1 mg/dL (8.5-10.1); Chloride 110 mmol/L (98-107); Creatinine, Serum 1.11 mg/dL (0.55-1.02); EST Glomerular Filtration Rate 50 mL/min (>60); Est Glom Filt Rate - Afr Amer 61 mL/min (>60); Globulin 3.8 g/dL (2.2-4.2); Glucose 80 mg/dL (74-106); Potassium 3.9 mmol/L (3.5-5.1); Protein, Total 7.5 g/dL (6.4-8.2); Sodium Level 140 mmol/L (136-145)
[2023-03-16 19:02] LABS: Hepatitis B Surface Antibody Non-Reactive; Hepatitis B Surface Antigen Non-Reactive (Nonreactive); Hepatitis C Antibody Non-Reactive (Nonreactive)
[2023-03-18 13:08] LABS: ANTINUCLEAR ANTIBODIES DIRECT Negative (Negative)
[2023-03-18 15:08] LABS: CCP IgG Antibodies 6 units (0-19)
== END | disposition home or self-care (01) ==
LOC: MTLAB 14:26
PROVIDERS: PCP Family Medicine Geriatric Medicine; Referring Provider Internal Medicine Rheumatology; Visit Provider Internal Medicine Rheumatology
DX: M05.79 Rheumatoid arthritis with rheumatoid factor of multiple sites without organ or systems involvement (principal); I82.401 Acute embolism and thrombosis of unspecified deep veins of right lower extremity; M79.7 Fibromyalgia; G25.81 Restless legs syndrome; I10 Essential (primary) hypertension; E78.5 Hyperlipidemia, unspecified; R51.9 Headache, unspecified; Q66.70 Congenital pes cavus, unspecified foot
CPT/HCPCS: 36415; 80053; 85025; 85652; 86038; 86140; 86200; 86431; 86706; 86803; 87340

== ENCOUNTER → 2023-03-23 | Outpatient (CLI) | payer MEDICARE, SELFPAY ==
--- NOTE | 2023-03-23 13:28 | NEURO ---
NCS and/or EMG Patient Report Ordering Doctor: Wei Rodriguez Chi DATE OF SERVICE: 03/23/23 Findings: Nerve conduction studies were performed in the bilateral lower extremities. The right peroneal motor study recording the extensor digitorum brevis was absent. The right tibial motor study recording the abductor hallucis brevis showed a reduced amplitude, normal distal latency and normal conduction velocity. The right sural sensory response was absent. The right superficial peroneal sensory response was absent. The left peroneal motor study recording the extensor digitorum brevis showed a markedly reduced amplitude, normal distal latency and normal conduction velocity. No conduction block or focal slowing was present across the fibular neck. The left tibial motor study recording the abductor hallucis brevis showed a borderline amplitude, normal distal latency and normal conduction velocity. The left sural sensory response was absent. The left superficial peroneal sensory response was absent. Needle EMG of the left lower extremity muscles was performed. Certain muscles, including the paraspinal muscles, were not sampled as the patient is on therapeutic anticoagulation. No denervation was present in any muscle. Motor units in the extensor hallucis longus were large amplitude and long duration with normal recruitment. Motor unit morphology, activation, and recruitment patterns were otherwise normal. Impression: This is an abnormal study. There is electrophysiologic evidence of a length dependent, chronic, axonal, sensorimotor peripheral neuropathy. This study was limited due to the patient being on therapeutic anticoagulation, therefore a superimposed lumbosacral radiculopathy cannot be entirely excluded. Tony Xiong D.O. Multi Select Codes Neurology Neurology Interp Codes: 17431-05 Musc test done w/n test comp (interp) and 01089-29 Nrv cndj test 7-8 studies (interp)
== END | disposition home or self-care (01) ==
LOC: PSN 12:15
PROVIDERS: PCP Family Medicine Geriatric Medicine; Referring Provider Family Medicine Geriatric Medicine; Visit Provider Family Medicine Geriatric Medicine
DX: R20.0 Anesthesia of skin (principal)
CPT/HCPCS: 95886; 95910

== ENCOUNTER 2023-03-25 11:07 | Outpatient (CLI) | payer MEDICARE, SELFPAY ==
--- NOTE | 2023-03-25 11:25 | VDLE_ITS ---
Reason For Study: Rt Leg Edema RIGHT LEFT GSV is normal. CFV is compressible, spontaneous, phasic, CFV is compressible, spontaneous, phasic, competent, and demonstrates normal competent and demonstrates normal augmentation. augmentation. FV is compressible, spontaneous, phasic, competent and demonstrates normal augmentation. POP V is compressible, spontaneous, phasic, competent and demonstrates normal augmentation. T/P Trunk is compressible. PTV is compressible. RT PerV is compressible. Acute deep vein thrombosis is noted in the SoleusV. It is dilated and NONCOMPRESSIBLE. Procedure This is a venous duplex using B-mode, color flow and spectral Doppler. Exam performed in department. The exam was diagnostic. A preliminary report was called and/or faxed to Dr. Rodriguez's ship's officer. Disease appears unchanged from previous exam performed on 02/09/2023. VL/Venous Duplex US, Unilateral Interpretation Summary Acute deep venous thrombosis right soleal vein. Patent and compressible right great saphenous vein Normal flow patterns left common femoral vein Ordering Physician: Wei Rodriguez Chi Referring Physician: Wei Rodriguez Chi Performed By: Lance Corbin RVT
== END 2023-03-25 23:59 | disposition home or self-care (01) ==
LOC: CVS 11:08
PROVIDERS: PCP Family Medicine Geriatric Medicine; Referring Provider Family Medicine Geriatric Medicine; Visit Provider Family Medicine Geriatric Medicine
DX: R60.0 Localized edema (principal); I10 Essential (primary) hypertension
CPT/HCPCS: 36415; 80053; 82607; 84443; 85025; 93971

== ENCOUNTER → 2023-03-25 | Outpatient (CLI) | payer MEDICARE, SELFPAY ==
[2023-03-25 13:38] LABS: Absolute Lymphocyte Count 1.11 X10^3/uL (0.83-4.51); Absolute Neutrophil Count 5.1 X10^3/uL (2.0-7.7); Basophil# 0.03 X10^3/uL; Basophil% 0.4 % (0-1); Eosinophil# 0.07 X10^3/uL; Hematocrit 40.6 % (37-47); Hemoglobin 12.8 g/dL (12.0-15.0); Lymphocyte # 1.11 X10^3/ul (0.83-4.51); Lymphocyte % 16.4 % (19-41); Mean Corp Hgb Conc 31.5 g/dL (32-36); Mean Corpuscular Hgb 29.4 pg (27.0-32.0); Mean Corpuscular Volume 93.1 fL (81-99); Mean Platelet Vol. 11.4 fl (6.2-12.0); Monocyte# 0.47 X10^3/uL; NRBC Flagged by Analyzer 0 % (0-5); Neutrophil # 5.05 X10^3/uL (2.7-7.7); Neutrophil % 74.9 % (47-70); Platelet Count 219 K/mm3 (150-450); RBC Distribution Width CV 13.5 % (11.6-14.6); Red Blood Count 4.36 M/mm3 (4.2-5.4); White Blood Count 6.8 K/mm3 (4.4-11.0)
[2023-03-25 14:01] LABS: Vitamin B12 256 pg/mL (211-911)
[2023-03-25 14:10] LABS: AST(SGOT) 21 U/L (15-37); Alanine Aminotransfer ALT/SGPT 22 U/L (13-56); Albumin, Serum 3.6 g/dL (3.2-5.0); Alkaline Phosphatase 82 U/L (45-117); Anion Gap 6 (5-15); BUN 25 mg/dL (7-18); BUN/Creat Ratio 25.5 RATIO (10-20); Chloride 108 mmol/L (98-107); Creatinine, Serum 0.98 mg/dL (0.55-1.02); EST Glomerular Filtration Rate 58 mL/min (>60); Est Glom Filt Rate - Afr Amer 71 mL/min (>60); Globulin 3.7 g/dL (2.2-4.2); Glucose 95 mg/dL (74-106); Potassium 4.4 mmol/L (3.5-5.1); Protein, Total 7.3 g/dL (6.4-8.2); Sodium Level 139 mmol/L (136-145); Thyroid Stim Hormone (TSH) 2.09 uIU/mL (0.358-3.74)
== END | disposition home or self-care (01) ==
LOC: POLAB3 11:00
PROVIDERS: PCP Family Medicine Geriatric Medicine; Visit Provider Family Medicine Geriatric Medicine
DX: I10 Essential (primary) hypertension (principal)
CPT/HCPCS: 36415; 80053; 82607; 84443; 85025

== ENCOUNTER → 2023-03-27 | Outpatient (CLI) | payer MEDICARE, SELFPAY ==
[2023-03-27 11:43] LABS: Homocysteine 8.3 umol/L (3.2-10.7)
[2023-03-31 12:19] LABS: Methylmalonic Acid Bld 286 nmol/L (0-378)
== END | disposition home or self-care (01) ==
LOC: LAB 10:39
PROVIDERS: PCP Family Medicine Geriatric Medicine; Referring Provider Family Medicine Geriatric Medicine; Visit Provider Family Medicine Geriatric Medicine
DX: E53.8 Deficiency of other specified B group vitamins (principal)
CPT/HCPCS: 36415; 83090; 83921

== ENCOUNTER 2023-04-27 11:30 | Outpatient (RCR) | payer SELFPAY | END 2023-05-07 23:59 | LOC: NS 11:30 | PROVIDERS: PCP Family Medicine Geriatric Medicine | DX: Z71.3 Dietary counseling and surveillance (principal) | CPT/HCPCS: 97802; 97803 ==

== ENCOUNTER → 2023-05-06 | Outpatient (CLI) | payer MEDICARE, SELFPAY ==
--- NOTE | 2023-05-06 10:54 | VDLE_ITS ---
Reason For Study: Pain RLE RIGHT LEFT GSV is normal. CFV is compressible, spontaneous, phasic, CFV is compressible, spontaneous, phasic, competent, and demonstrates normal competent and demonstrates normal augmentation. augmentation. FV is compressible, spontaneous, phasic, competent and demonstrates normal augmentation. POP V is compressible, spontaneous, phasic, competent and demonstrates normal augmentation. T/P Trunk is compressible. PTV is compressible. RT PerV is compressible. Rt SoleusV is dilated and NON COMPRESSIBLE, no significant change from previous scan. Procedure This is a venous duplex using B-mode, color flow and spectral Doppler. Exam performed in department. A preliminary report was called and/or faxed to Ashlyn PICHARDO. VL/Venous Duplex US, Unilateral Interpretation Summary Acute deep vein thrombosis is noted in the right soleus vein. No change from previous study Ordering Physician: Maia Bermudez Referring Physician: Gabriel Philippe Performed By: Gabrielle Bailon, KARRI, RVT
--- NOTE | 2023-05-06 11:30 | RAD_ITS ---
INDICATION: Lumbar radiculopathy EXAMINATION/TECHNIQUE: X-RAY - XR Spine Lumbar 2 or 3 Views COMPARISON: None. FINDINGS: VERTEBRAE: Preserved vertebral body height. No fracture. No spondylolisthesis. Slightly exaggerated lumbar lordosis. Scoliosis with convexity to the right. Diffuse osteopenia. Multilevel bilateral facet hypertrophy, more severe from L3 to S1. DISCS: Significant multilevel disc space narrowing with vacuum phenomenon at L2-L3 and L5-S1. INCLUDED ABDOMEN: Included bowel gas pattern is non-obstructive. RAD/Lumbar Spine 2 or 3 Views IMPRESSION: Scoliosis with convexity to the right. Advanced multilevel degenerative disease. No acute fracture or spondylolisthesis. Electronically Signed: Zeinab Parker MD at 16:47 EDT ,
== END | disposition home or self-care (01) ==
PROVIDERS: PCP Internal Medicine; Referring Provider Physician Assistant; Visit Provider Physician Assistant
DX: M54.16 Radiculopathy, lumbar region (principal); M79.661 Pain in right lower leg; Z86.718 Personal history of other venous thrombosis and embolism
CPT/HCPCS: 72100; 93971

== ENCOUNTER → 2023-05-12 | Outpatient (CLI) | payer MEDICARE, SELFPAY ==
[2023-05-12 13:10] LABS: Absolute Lymphocyte Count 1.15 X10^3/uL (0.83-4.51); Absolute Neutrophil Count 4.6 X10^3/uL (2.0-7.7); Basophil# 0.03 X10^3/uL; Basophil% 0.5 % (0-1); Eosinophil# 0.07 X10^3/uL; Eosinophils% 1.1 % (0-5); Hematocrit 40.9 % (37-47); Hemoglobin 13.1 g/dL (12.0-15.0); Lymphocyte # 1.15 X10^3/ul (0.83-4.51); Lymphocyte % 18.1 % (19-41); Mean Corpuscular Hgb 29.1 pg (27.0-32.0); Mean Corpuscular Volume 90.9 fL (81-99); Monocyte# 0.46 X10^3/uL; Monocyte% 7.2 % (0-10); NRBC Flagged by Analyzer 0 % (0-5); Neutrophil # 4.62 X10^3/uL (2.7-7.7); Neutrophil % 72.8 % (47-70); Platelet Count 198 K/mm3 (150-450); RBC Distribution Width CV 13.8 % (11.6-14.6); RBC Distribution Width SD 46.4 fl (35.1-43.9); White Blood Count 6.4 K/mm3 (4.4-11.0)
--- NOTE | 2023-05-12 13:47 | ART_ITS ---
Reason For Study: Decreased Pedal Pulses Procedure A bilateral lower extremity continuous wave Doppler with analog waveform analysis,segmental pressures,and ankle brachial indexes without exercise. Left Segmental Pressures Left brachial= 115mmHg. Left posterior tibial artery = 151mmHg. Left dorsalis pedis artery = 147mmHg. Left digit = 124 mmHg. The left posterior tibial artery waveforms are triphasic. The left dorsalis pedis waveforms are triphasic. Right Segmental Pressures Right brachial= 113mmHg. Right posterior tibial artery = 145mmHg. Right dorsalis pedis artery = 142mmHg. Right digit = 126 mmHg. The right posterior tibial artery waveforms are triphasic. The right dorsalis pedis waveforms are triphasic. Indices The right ankle brachial index by the posterior tibial artery is 1.26. The right ankle brachial index by the dorsalis pedis is 1.23. The right digital-brachial index is 1.10. The right post exercise ankle brachial index is 1.31. The left ankle brachial index by the posterior tibial artery is 1.31. The left ankle brachial index by the dorsalis pedis is 1.28. The left digital-brachial index is 1.08. The left post exercise ankle brachial index is 1.27. VL/Lower Ext Art Exam w/ Exercise Interpretation Summary Right MIGUEL 1.26, normal. TBI and Doppler/PVR waveforms of the right leg normal a t rest. Right lower extremity exhibits normal response to exercise. Left MIGUEL 1.31, normal. TBI and Doppler/PVR waveforms of the left leg normal at rest. Left lower extremity exhibits normal response to exercise. Ordering Physician: Maia Bermudez Referring Physician: Gabriel Philippe Performed By: Lance Corbin, RVT
== END | disposition home or self-care (01) ==
LOC: CVS 13:47
PROVIDERS: PCP Internal Medicine; Referring Provider Physician Assistant; Visit Provider Physician Assistant
DX: R09.89 Other specified symptoms and signs involving the circulatory and respiratory systems (principal); Z86.718 Personal history of other venous thrombosis and embolism
CPT/HCPCS: 36415; 85025; 93924

== ENCOUNTER → 2023-05-22 | Outpatient (CLI) | payer MEDICARE, SELFPAY ==
[2023-05-22 12:07] LABS: Absolute Lymphocyte Count 1.35 X10^3/uL (0.83-4.51); Absolute Neutrophil Count 4.2 X10^3/uL (2.0-7.7); Basophil# 0.03 X10^3/uL; Basophil% 0.5 % (0-1); Eosinophil# 0.12 X10^3/uL; Hematocrit 41.1 % (37-47); Hemoglobin 13.1 g/dL (12.0-15.0); Lymphocyte # 1.35 X10^3/ul (0.83-4.51); Lymphocyte % 22.3 % (19-41); Mean Corp Hgb Conc 31.9 g/dL (32-36); Mean Corpuscular Hgb 29.4 pg (27.0-32.0); Mean Corpuscular Volume 92.4 fL (81-99); Mean Platelet Vol. 10.7 fl (6.2-12.0); Monocyte# 0.38 X10^3/uL; Monocyte% 6.3 % (0-10); NRBC Flagged by Analyzer 0 % (0-5); Neutrophil # 4.16 X10^3/uL (2.7-7.7); Neutrophil % 68.7 % (47-70); Platelet Count 167 K/mm3 (150-450); RBC Distribution Width CV 13.9 % (11.6-14.6); RBC Distribution Width SD 47.3 fl (35.1-43.9); Red Blood Count 4.45 M/mm3 (4.2-5.4); White Blood Count 6.1 K/mm3 (4.4-11.0)
[2023-05-22 12:39] LABS: ALB/GLOB Ratio 1.1 RATIO (0.9-2.4); AST(SGOT) 26 U/L (15-37); Alanine Aminotransfer ALT/SGPT 33 U/L (13-56); Albumin, Serum 3.5 g/dL (3.2-5.0); Alkaline Phosphatase 60 U/L (45-117); Anion Gap 4 (5-15); BUN 17 mg/dL (7-18); BUN/Creat Ratio 15.9 RATIO (10-20); Calcium,Total 8.8 mg/dL (8.5-10.1); Chloride 112 mmol/L (98-107); Creatinine, Serum 1.07 mg/dL (0.55-1.02); EST Glomerular Filtration Rate 53 mL/min (>60); Est Glom Filt Rate - Afr Amer 64 mL/min (>60); Globulin 3.2 g/dL (2.2-4.2); Glucose 80 mg/dL (74-106); Protein, Total 6.7 g/dL (6.4-8.2); Sodium Level 141 mmol/L (136-145)
== END | disposition home or self-care (01) ==
LOC: MTLAB 11:02
PROVIDERS: PCP Internal Medicine; Referring Provider Internal Medicine Rheumatology; Visit Provider Internal Medicine Rheumatology
DX: M05.79 Rheumatoid arthritis with rheumatoid factor of multiple sites without organ or systems involvement (principal); I82.401 Acute embolism and thrombosis of unspecified deep veins of right lower extremity; I10 Essential (primary) hypertension; E78.5 Hyperlipidemia, unspecified
CPT/HCPCS: 36415; 80053; 85025

== ENCOUNTER 2023-05-28 11:30 | Outpatient (RCR) | payer SELFPAY | END 2023-06-06 23:59 | disposition home or self-care (01) | LOC: NS 11:30 | PROVIDERS: PCP Internal Medicine | DX: Z00.00 Encounter for general adult medical examination without abnormal findings (principal) | CPT/HCPCS: 97803 ==

== ENCOUNTER 2023-06-18 10:21 | Outpatient (RCR) | payer SELFPAY | END 2023-07-07 23:59 | LOC: NS 10:21 | PROVIDERS: PCP Internal Medicine | DX: Z71.3 Dietary counseling and surveillance (principal); R63.4 Abnormal weight loss | CPT/HCPCS: 97803 ==

== ENCOUNTER → 2023-08-21 | Outpatient (CLI) | payer MEDICARE, SELFPAY ==
--- NOTE | 2023-08-21 12:24 | MRI_ITS ---
EXAM: MR LUMBAR SPINE WITHOUT INTRAVENOUS CONTRAST CLINICAL INDICATION: RADICULOPATHY LUMBAR REGION TECHNIQUE: Multiplanar and multisequence MR images of the lumbar spine without intravenous contrast. COMPARISON: Lumbar spine radiographs, 05/06/2023 FINDINGS: VERTEBRAE: Degenerative anterolisthesis of L5 upon S1 secondary to severe facet arthrosis. [place] right lumbar curvature better assessed on comparison radiographs. Diffuse endplate degenerative changes to include Schmorl''s nodes, endplate osteophytes, and endplate signal changes. Mild anterior wedging of T12 which is likely on a degenerative or perhaps a chronic posttraumatic basis. No evidence of acute fracture. SPINAL CORD: No significant abnormality. Normal position and signal intensity of the conus medullaris. SOFT TISSUES: No significant abnormality. DISCS/SPINAL CANAL/NEURAL FORAMINA: Multilevel disc height loss and disc desiccation. T11-T12: Endplate osteophytes, disc bulge, moderate facet arthrosis. Mild to moderate spinal canal stenosis, moderate right neural foraminal narrowing, and mild left neural foraminal narrowing. T12-L1: Disc bulge with superimposed central disc herniation and moderate bilateral facet arthrosis. Moderate spinal canal stenosis and mild right greater than left neural foraminal narrowing. L1-L2: Disc bulge and severe bilateral facet arthrosis. Mild spinal canal stenosis and [id number] bilateral neural foraminal narrowing. L2-L3: Disc bulge with superimposed left foraminal disc herniation and moderate bilateral facet arthrosis. Mild right and moderate to severe left neural foraminal narrowing. Mild spinal canal stenosis. At least abutment of the left L2 and left L3 nerve roots. L3-L4: Disc bulge with superimposed left foraminal disc herniation and moderate to severe bilateral facet arthrosis. Moderate left and mild right neural foraminal narrowing. Mild spinal canal stenosis. At least abutment of the left L3 nerve root. L4-L5: Asymmetrical disc bulge racers the left with superimposed central to left foraminal disc herniation and moderate to severe bilateral facet arthrosis. Mild spinal canal stenosis and moderate bilateral neural foraminal narrowing. L5-S1: Degenerative anterolisthesis of L5 upon S1. Disc uncovering/pseudobulge with superimposed central disc herniation. Severe bilateral facet arthrosis. Severe bilateral neural foraminal narrowing and moderate spinal canal stenosis. Bilateral L5 nerve root impingement. MRI/Spine Lumbar (Routine) IMPRESSION: 1. Degenerative anterolisthesis of L5 upon S1 secondary to severe facet arthrosis. 2. Extensive degenerative changes and scoliotic curvature of the lumbar spine. Multilevel spinal canal and neural foraminal stenosis. At least abutment of the left left L2 and left L3 nerve roots and bilateral L5 nerve root impingement. Consider spine surgery consultation. 3. Mild anterior wedging of T12 which is likely on a degenerative or perhaps a chronic posttraumatic basis. No evidence of acute fracture. Electronically Signed: John Bajwa DO at 16:16 EST ,
== END | disposition home or self-care (01) ==
LOC: MRI 12:15
PROVIDERS: PCP Internal Medicine; Referring Provider Anesthesiology Pain Medicine; Visit Provider Anesthesiology Pain Medicine
DX: M54.16 Radiculopathy, lumbar region (principal)
CPT/HCPCS: 72148

== ENCOUNTER → 2023-09-29 | Outpatient (CLI) | payer MEDICARE, SELFPAY ==
--- NOTE | 2023-09-29 13:03 | ST.MBS ---
Modified Barium Swallow Patient Information Study Date: 09/29/23 Study Time: 13:00 Direct Billable Minutes: 99 Total Minutes procedure & reportin Diagnosis: Odynophagia R13.10 Referring Physician: Gabriel Philippe Reason for Referral: Objectively assess swallow function, assess risk for aspiration, and determine recommendations for least restrictive diet textures and compensatory strategies to improve safety of swallow. Medical History: PMH: GERD, odynophagia, right leg DVT, RA, debility, high cholesterol, HTN. For the past two years, the patient has had pain swallowing. She feels retention of foods, especially chicken, at the level of her sternum with pain radiating from the retention. It takes her a long time to eat because it takes a long time for foods to go down. She feels like she has to burp when foods get caught. At times she regurgitates. In recent months, these symptoms have gotten increasingly worse so her PCP referred her for MBSS. Current Diet Ordered: Regular textures / Thin liquids Dentition: WNL and Natural Teeth Mental Status: WNL Respiratory Status: Oxygenating on Room Air Penetration-Aspiration Scale Penetration-Aspiration Scale: OBJECTIVE ASSESSMENT OF SWALLOW FUNCTION (QUANTITATIVE ? PER TRIAL): PENETRATION / ASPIRATION SCALE (MEJIA): 1 = does not enter airway 2 = enters airway/above vocal folds/ejected 3 = enters airway/above vocal folds/not ejected 4 = enters airway/contacts vocal folds/ejected 5 = enters airway/contacts vocal folds/not ejected 6 = enters airway/below vocal folds/ejected 7 = enters airway/below vocal folds/not ejected despite effort 8 = enters airway/below vocal folds/no effort VIDEOFLOROSCOPIC SCALE SCORE (MEJIA): Grade I = aspiration of material that has penetrated into the laryngeal vestibule, intact cough reflex Grade II = aspiration < 10 % of the bolus, intact cough reflex Grade III = aspiration of < 10 % of the bolus, reduced cough reflex or aspiration of > 10 % of the bolus, intact cough reflex Grade IV = aspiration of > 10 % of the bolus, reduced cough reflex Penetration-Aspiration Scale Score Thin Liquid via teaspoon: Result: 2= enter airway/above vocal folds/ejected Thin Liquid via teaspoon Trial 2: Result: 1= does not enter airway Thin Liquid via large single sip: cup: Result: 2= enter airway/above vocal folds/ejected [place] Thick Liquid via large single sip: cup: Result: 2= enter airway/above vocal folds/ejected Pudding via teaspoon: Result: 1= does not enter airway Whole Cookie: Result: 1= does not enter airway Oral Phase Labial Seal: No Labial Escape Tongue Control During Bolus Hold: Posterior escape of less than half of bolus Bolus Preparation/Mastication: Timely and efficient chewing and mashing Bolus Transport/Lingual Motion: Delayed initiation of tongue motion Oral Residue: Residue collection on oral structures Pharyngeal Phase Initiation of Pharyngeal Swallow: Bolus head at posterior laryngeal surgace of epiglottis Soft Palate Elevation: No bolus between soft palate and pharyngeal wall Laryngeal Elevation: Comp. Superior move thyroid cart w/comp. apprx arytenoid cart-epig pet Anterior Hyoid Excursion: Partial anterior movement Epiglottic Movement: Complete inversion Laryngeal Vestibule Closure at Height of Swallow: Incomplete; narrow column of air/contrast in laryngeal vestibule Pharyngeal Stripping Wave: Present - complete Pharyngoesophageal Segment Opening: Complete distension and complete duration; no obstruction of flow Tongue Base Retraction: Narrow column of contrast between tongue base & post. pharyngeal wall Pharyngeal Residue: Collection of residue within or on pharyngeal structures (spilling from oral cavity after the swallow) Esophageal Phase Esophageal Clearance: Esophageal retention w/ retrograde flow below pharyngoesophageal seg. Diagnosis/Impression Diagnosis: Esophageal dysphagia R13.14; Swallow functiong grossly WNL Impression: Overall, the patient demonstrates swallow function grossly WNL. She does present with posterior loss of liquids on one trial to the posterior surface of the epiglottis; however, all other trials had timely swallow onset and complete laryngeal elevation. She demonstrated trace laryngeal penetration with full ejection. No aspiration was observed. Mild oral residues were seen spilling to the vallecula from the oral cavity after a large sip. Otherwise, good oral and pharyngeal clearance of consistencies. The esophageal phase is primarily marked by... -Retention of cookie throughout the mid esophagus with very slow progression to the lower esophagus. Liquid wash was effective in clearing a majority of cookie residue; however, esophageal screen of thin liquid wash revealed retention of thin liquids in the lower esophagus with retrograde flow. -Tortuous lower esophagus observed during thin liquid trial. Figure 1. Esophageal screen of cookie Figure 2. Esophageal screen of thin barium Recommendations Diet: Regular Textures (Easy to Chew Textures IDDSI Level 7) and Thin Liquids Comment: Avoid dry textures, chop and moisten dry consistencies. Consider 4-5 smaller meals per day. Compensatory Strategies: Small Bites, Small Sips, Slow Rate, Alternate bites/solids and sips/liquids (wash after every 1-2 bites), Sitting upright and Remain sitting upright for 30 minutes after PO intake Recommend Repeat Modified Barium Swallow: No Need for Skilled Speech Therapy Services: No Recommended Referrals: GI Consult Education Completed: 1. Described result of evaluation. Status Active ST Patient: Active Contact Information [facility] Speech Therapy:: Ashley Rosenbaum M.A. CCC-BREAKFAST AND ROOM ATTENDANT Speech-Language Pathologist [facility] [address] [place] [address] [email or web address] [phone]
== END | disposition home or self-care (01) ==
LOC: RAD 12:48
PROVIDERS: PCP Internal Medicine; Referring Provider Internal Medicine; Visit Provider Internal Medicine
DX: R13.10 Dysphagia, unspecified (principal)
CPT/HCPCS: 74230; 92611

== ENCOUNTER → 2023-10-29 | Outpatient (CLI) | payer MEDICARE, SELFPAY ==
--- NOTE | 2023-10-29 09:45 | RAD_ITS ---
STUDY: X-RAY - ESOPHAGUS (BARIUM SWALLOW) WITH FLUOROSCOPY REASON FOR EXAM: Female, 78 years old. DYSPHAGIA TECHNIQUE: 16 view(s) of the esophagus were obtained following swallowing of barium. FLUOROSCOPY TIME (if supplied): (34 seconds) minutes/seconds COMPARISON: None. FINDINGS: There is no demonstrated esophageal foreign body. There is no demonstrated stricture or mucosal abnormality. There is a small hiatal hernia of the fundus of the stomach. The patient ingested a 12 mm tablet of barium. The tablet is trapped at the gastroesophageal junction. Normal visualized aortic arch and descending thoracic aorta. Normal visualized pulmonary parenchyma. Normal visualized osseous structures of the thorax. RAD/Esophagus Dual Contrast IMPRESSION: The ingested 12 mm tablet of barium is trapped at the gastroesophageal junction. Small hiatal hernia without gastroesophageal reflux. Electronically Signed: Krish Becker MD at 10:52 EST ,
== END | disposition home or self-care (01) ==
LOC: RAD 09:44
PROVIDERS: PCP Internal Medicine; Referring Provider Internal Medicine Gastroenterology; Visit Provider Internal Medicine Gastroenterology
DX: R13.10 Dysphagia, unspecified (principal)
CPT/HCPCS: 74221

== ENCOUNTER → 2023-11-16 | Outpatient (CLI) | payer MEDICARE, SELFPAY ==
[2023-11-16 12:35] LABS: Absolute Lymphocyte Count 1.21 X10^3/uL (0.83-4.51); Absolute Neutrophil Count 3.5 X10^3/uL (2.0-7.7); Basophil# 0.03 X10^3/uL; Basophil% 0.6 % (0-1); Eosinophils% 1.9 % (0-5); Hematocrit 39.5 % (37-47); Hemoglobin 12.5 g/dL (12.0-15.0); Lymphocyte # 1.21 X10^3/ul (0.83-4.51); Lymphocyte % 22.8 % (19-41); Mean Corp Hgb Conc 31.6 g/dL (32-36); Mean Corpuscular Hgb 29.1 pg (27.0-32.0); Mean Corpuscular Volume 91.9 fL (81-99); Mean Platelet Vol. 11.1 fl (6.2-12.0); Monocyte# 0.43 X10^3/uL; Monocyte% 8.1 % (0-10); NRBC Flagged by Analyzer 0 % (0-5); Neutrophil # 3.53 X10^3/uL (2.7-7.7); Neutrophil % 66.4 % (47-70); Platelet Count 179 K/mm3 (150-450); RBC Distribution Width CV 13.4 % (11.6-14.6); RBC Distribution Width SD 45.1 fl (35.1-43.9); White Blood Count 5.3 K/mm3 (4.4-11.0)
[2023-11-16 13:28] LABS: ALB/GLOB Ratio 1.1 RATIO (0.9-2.4); AST(SGOT) 21 U/L (15-37); Alanine Aminotransfer ALT/SGPT 25 U/L (13-56); Albumin, Serum 3.7 g/dL (3.2-5.0); Alkaline Phosphatase 61 U/L (45-117); Anion Gap 7 (5-15); BUN 33 mg/dL (7-18); BUN/Creat Ratio 28.2 RATIO (10-20); Calcium,Total 9.3 mg/dL (8.5-10.1); Chloride 110 mmol/L (98-107); Creatinine, Serum 1.17 mg/dL (0.55-1.02); EST Glomerular Filtration Rate 47 mL/min (>60); Est Glom Filt Rate - Afr Amer 57 mL/min (>60); Globulin 3.4 g/dL (2.2-4.2); Glucose 89 mg/dL (74-106); Potassium 3.7 mmol/L (3.5-5.1); Protein, Total 7.1 g/dL (6.4-8.2); Sodium Level 142 mmol/L (136-145)
== END | disposition home or self-care (01) ==
PROVIDERS: PCP Internal Medicine; Referring Provider Internal Medicine Rheumatology; Visit Provider Internal Medicine Rheumatology
DX: M05.79 Rheumatoid arthritis with rheumatoid factor of multiple sites without organ or systems involvement (principal); G25.81 Restless legs syndrome; Z79.899 Other long term (current) drug therapy
CPT/HCPCS: 36415; 80053; 85025

== ENCOUNTER → 2023-12-08 | Outpatient (CLI) | payer MEDICARE, SELFPAY ==
--- NOTE | 2023-12-08 12:37 | US_ITS ---
INDICATION: Right Upper Back/POST SHOOULDER Swelling EXAMINATION: Left Lower extremity soft tissue ultrasound. COMPARISON: No relevant prior comparison study available TECHNIQUE: Routine and color duplex imaging of the right back region of concern. FINDINGS: Targeted sonographic evaluation in the region of concern of the right back shows a well marginated ovoid mass which is mildly hyperechoic measuring 5.6 x 5.4 x 2 cm in the superficial subcutaneous fat. No significant Doppler vascularity. US/Ext Non Vasc Limited/Soft Tiss IMPRESSION: Lipoma identified in the region of concern. No suspicious feature. Electronically Signed: Howard Murphy MD at 7:02 EDT ,
== END | disposition home or self-care (01) ==
PROVIDERS: PCP Internal Medicine; Referring Provider Internal Medicine; Visit Provider Internal Medicine
DX: R22.2 Localized swelling, mass and lump, trunk (principal)
CPT/HCPCS: 76882

== ENCOUNTER → 2024-01-12 | Outpatient (CLI) | payer MEDICARE, SELFPAY ==
--- NOTE | 2024-01-12 13:58 | VDLE_ITS ---
Reason For Study: Bilateral lel pain RIGHT LEFT GSV is normal. GSV is normal. CFV is compressible, spontaneous, phasic, CFV is compressible, spontaneous, phasic, competent and demonstrates normal competent, and demonstrates normal augmentation. augmentation. FV is compressible, spontaneous, phasic, FV is compressible, spontaneous, phasic, competent and demonstrates normal competent and demonstrates normal augmentation. augmentation. POP V is compressible, spontaneous, phasic, POP V is compressible, spontaneous, phasic, competent and demonstrates normal competent and demonstrates normal augmentation. augmentation. T/P Trunk is compressible. T/P Trunk is compressible. PTV is compressible. PTV is compressible. RT PerV is compressible. LT PerV is compressible. Soleus vein is partially compressible with bright intraluminal echoes consistent with Chronic DVT. Procedure This is a venous duplex using B-mode, color flow and spectral Doppler. Exam performed in department. A preliminary report was called and/or faxed to Dr. Sena. VL/Venous Duplex US - [place] Extrem Interpretation Summary Chronic deep vein thrombosis is noted in the right soleus vein. Deep veins of the left lower extremity are patent and compressible segmentally. There is no evidence of left lower extremity deep vein thrombosis. The bilateral great saphenous vei ns appear patent and compressible segmentally. Ordering Physician: Mj Sena Referring Physician: Gabriel Philippe Performed By: Rubina Mcwilliams RVT
== END | disposition home or self-care (01) ==
LOC: CVS 13:57
PROVIDERS: PCP Internal Medicine; Referring Provider Podiatrist Foot & Ankle Surgery; Visit Provider Podiatrist Foot & Ankle Surgery
DX: I82.401 Acute embolism and thrombosis of unspecified deep veins of right lower extremity (principal); M79.604 Pain in right leg; M79.605 Pain in left leg
CPT/HCPCS: 93970

== ENCOUNTER 2024-04-26 21:37 | Emergency (ER) | payer MEDICARE, SELFPAY ==
[2024-04-26 21:38] VITALS: BP 162/147; PULSE 84; RESP 18; TEMP 36.2; O2SAT 97
[2024-04-26 22:11] VITALS: BMI 32.1
[2024-04-26 22:37] VITALS: BP 141/97; PULSE 72; RESP 16; O2SAT 97
[2024-04-26 23:00] VITALS: PULSE 69; RESP 18; O2SAT 97
[2024-04-26] MEDS: oxyCODONE 5 MG Tablet PO (23:13)
[2024-04-26] MEDS: Lidocaine 2% /Epi 1:100 (20ml) 20 ML VIAL INFILT (23:13)
--- NOTE | 2024-04-26 23:17 | RAD_ITS ---
INDICATION: injury EXAMINATION/TECHNIQUE: X-RAY - RIGHT XR Ankle Min 3 Views 3 VIEWS COMPARISON: No relevant prior comparison study available FINDINGS: BONES: No fracture demonstrated. JOINTS: No dislocation. SOFT TISSUES: Unremarkable. RAD/Ankle min 3 Views IMPRESSION: No evidence of fracture. Electronically Signed: Sue Odell MD at 0:19 EDT ,
--- NOTE | 2024-04-26 23:17 | RAD_ITS ---
INDICATION: injury EXAMINATION/TECHNIQUE: X-RAY - RIGHT XR Knee 3 Views 3 VIEWS COMPARISON: Right knee x-rays 01/08/2023 FINDINGS: BONES: No fracture demonstrated. JOINTS: No dislocation. SOFT TISSUES: Mild soft tissue swelling anteriorly. RAD/Knee 3 Views IMPRESSION: No evidence of fracture. Electronically Signed: Sue Odell MD at 0:23 EDT ,
--- NOTE | 2024-04-26 23:37 | RAD_ITS ---
INDICATION: injury EXAMINATION/TECHNIQUE: X-RAY - RIGHT XR Wrist Min 3 Views 3 VIEWS COMPARISON: No relevant prior comparison study available FINDINGS: BONES: Osteopenia. Subtle lucency dorsally on the lateral view suspicious for a nondisplaced triquetral fracture. JOINTS: No dislocation. SOFT TISSUES: Mild soft tissue swelling dorsally. RAD/Wrist min 3 Views IMPRESSION: Acute triquetral fracture. Electronically Signed: Sue Odell MD at 0:18 EDT ,
--- NOTE | 2024-04-26 23:37 | RAD_ITS ---
INDICATION: Trauma, fall with right sided rib pain EXAMINATION/TECHNIQUE: X-RAY - XR Ribs Unilateral W/ PA Chest Min 3 Views COMPARISON: None. FINDINGS: SOFT TISSUES: No soft tissue swelling or gas. BONES: Chronic appearing deformity right third through seventh ribs with possible acute fracture right sixth rib posterolaterally. Chronic appearing deformity left seventh rib laterally. VISUALIZED LUNGS: Clear. No pneumothorax. RAD/Ribs Uni Min 3V w/PA Chest IMPRESSION: Bilateral chronic rib deformities from prior trauma with possible acute fracture right sixth rib posterior laterally. Electronically Signed: Johnathon Matute MD at 0:22 EDT ,
[2024-04-27] VITALS: BP 152/70; PULSE 71; RESP 16; O2SAT 96
[2024-04-27 01:00] VITALS: BP 138/70; PULSE 71; RESP 16; O2SAT 95
[2024-04-27 02:00] VITALS: PULSE 85; RESP 18; O2SAT 95
--- NOTE | 2024-04-27 02:46 | EX.ED.DYSGE1 ---
HPI History of Present Illness Chief Complaint: Fall Informant: patient Narrative Narrative: Patient is an 79-year-old female with past medical history of hypertension hyperlipidemia GERD osteoporosis and rheumatoid arthritis. She states roughly 1 hour prior to arrival she got out of her car to check her mail and as she stepped out her foot somehow slipped and she fell landing on her right side. She denies any loss of consciousness or history of bleeding disorder or blood thinner use. She states that she injured her right wrist right ribs and right knee. She also reports she sustained a laceration to the back aspect of her right lower leg. She states that she does have a history of a tibial plateau fracture on that right side and has concern for trauma to it once again and with concern she may need sutures secondary to her laceration she presents for evaluation [facility] Medical History (Updated 04/27/24 @ 03:[address] Bassam Shah, ) Post-thrombotic syndrome Abnormal facial hair Localized swelling of back Acute sinusitis, unspecified Colon cancer screening Nonscarring hair loss Odynophagia Foot pain Lumbar radiculopathy Migraines (09/07/1954) Bone fracture (01/02/23) Edema Numbness in feet Rheumatoid arthritis GERD (gastroesophageal reflux disease) Osteopenia High cholesterol Carpal tunnel syndrome History of blood transfusion Hx of blood clots Bicondylar fracture of right tibia Restless leg syndrome Hypertension Home Medications ?Medication ?Instructions ?Recorded ?Last Taken ?Type hydroxychloroquine 200 mg tablet 200 mg PO BID 04/27/23 Unknown History ropinirole 2 mg tablet,extended 4 mg (2 x 2 mg) PO TID 3 months 11/11/23 Unknown Rx release 24 hr #540 tabs pantoprazole 40 mg tablet,delayed 40 mg PO DAILY 11/25/23 Unknown History release (Protonix) risedronate 150 mg tablet 150 mg PO QMONTH #7 tabs 03/07/24 Unknown Rx oxycodone-acetaminophen 5 mg-325 1 tab PO Q6H PRN pain 3 days #12 04/27/24 Unknown Rx mg tablet (Percocet) tabs Allergy/AdvReac Type Severity Reaction Status Date / Time clopidogrel AdvReac Intermediate Other Verified 04/26/24 21:38 diclofenac AdvReac Intermediate Other Verified 04/26/24 21:38 hydrochlorothiazide AdvReac Intermediate Other Verified 04/26/24 21:38 pregabalin (From Lyrica) AdvReac Intermediate Other Verified 04/26/24 21:38 baclofen AdvReac Mild Other Verified 04/26/24 21:38 carbamazepine (From Tegretol) AdvReac Mild Other Verified 04/26/24 21:38 gabapentin AdvReac Mild Other Verified 04/26/24 21:38 methylphenidate AdvReac Mild Other Verified 04/26/24 21:38 temazepam AdvReac Mild Other Verified 04/26/24 21:38 cyclobenzaprine AdvReac Intermediate Other Uncoded 03/07/24 10:25 cymbalta AdvReac Intermediate Other Uncoded 03/07/24 10:25 calm forte AdvReac Mild Other Uncoded 03/07/24 10:25 Family History Sister Hx of blood clots Mother Hypertension Other Cancer Heart disease Surgical History History of endoscopy History of hysterectomy (03/13/15) History of cataract surgery (03/21/14) History of colonoscopy (08/22/14) History of appendectomy (03/11/1962) History of dilatation and curettage Hx of foot surgery History of carpal tunnel surgery History of uterine suspension procedure Hx of cataract surgery H/O: hysterectomy Social History household members: none Smoking Status: Former smoker alcohol intake: current details: 2 x a week substance use type: does not use what type of physical activity do you participate in: walking ROS ROS ED Constitutional Constitutional ED: Denies chills or fever(s) Eyes Eyes: Denies blurry vision or change in vision ENT ENT ED: Denies sore throat Cardiovascular Cardiovascular: Denies chest pain Respiratory/Chest Respiratory/Chest: Denies cough or dyspnea Gastrointestinal Gastrointestinal: Denies abdominal pain, diarrhea, nausea or vomiting Genitourinary Genitourinary ED: Denies dysuria Musculoskeletal Musculoskeletal: Reports other Details: Positive right wrist pain positive right knee and ankle pain Positive right rib pain ; Denies back pain or neck pain Integumentary Reports other Details: Positive ecchymosis and positive laceration Neurologic Neurologic: Denies headache(s), paresthesias or weakness Hematologic/Lymphatic Hematologic/Lymphatic: Denies easy bleeding or easy bruising EXAM Physical Exam Const Vital Signs: 04/26/24 21:38 04/26/24 22:13 04/26/24 22:37 Temperature 97.2 F L Temperature Source Temporal Pulse Rate 84 72 Respiratory Rate 18 16 Respiratory Effort Normal Non-Labored Respiratory Depth Normal Respiratory Pattern Normal Blood Pressure 162/147 H 141/97 H Blood Pressure Mean 152 111 Pulse Ox 97 97 Oxygen Delivery Method Room Air Room Air Room Air 04/26/24 23:00 04/27/24 00:00 04/27/24 01:00 Temperature Temperature Source Pulse Rate 69 71 71 Respiratory Rate 18 16 16 Respiratory Effort Respiratory Depth Respiratory Pattern Blood Pressure 152/70 H 138/70 H Blood Pressure Mean 97 92 Pulse Ox 97 96 95 Oxygen Delivery Method Room Air Room Air Room Air 04/27/24 02:00 04/27/24 02:56 Temperature 97.8 F Temperature Source Pulse Rate 85 71 Respiratory Rate 18 16 Respiratory Effort Respiratory Depth Respiratory Pattern Blood Pressure 138/88 H Blood Pressure Mean 104 Pulse Ox 95 96 Oxygen Delivery Method Room Air Positive well nourished and well developed General Appearance ED: well developed HEENT HEENT Narrative: Patient has faint soft tissue swelling and ecchymosis along the right orbital region of the face. No entrapment noted Otherwise no signs of depressed or basilar skull fracture No septal hematoma Eyes PERRL and EOMs intact bilaterally Eyes Narrative: No hyphema present Neck supple Neck Narrative: No bony deformity or step-off of the cervical spine no midline tenderness to palpation Chest Wall Chest Narrative: There is reproducible right lateral/posterior rib pain regions 6-9 without bony deformity or crepitance Resp normal respiratory effort and clear to auscultation bilaterally Cardio regular rate and regular rhythm GI normal to inspection, nondistended, normoactive bowel sounds, non-tender, non-distended and no masses Auscultation: normoactive bowel sounds Palpation: soft Back/Spine Back/Spine Narrative: No bony deformity or step-off of the thoracic or lumbar spine no midline tenderness to palpation Extremity Extremity Narrative: Pelvis is stable there is no shortening or external rotation of either lower extremity Patient does have soft tissue swelling with ecchymosis along the medial and lateral aspect of the right knee. There is pain with palpation diffusely of the right knee. No obvious bony deformity or joint effusion or patellar dislocation. Patellar tendon is intact and knee ligaments are stable. There is also mild soft tissue swelling and pain with palpation along the lateral malleolus of the right ankle. Achilles tendon is intact and ankle ligaments are stable as well. Patient has a large 10 cm linear subcutaneous layer deep laceration with minimal ooze of blood along the upper posterior aspect of the right calf. There is no obvious tendon or ligamentous injury. No retained foreign body Right upper extremity is neurovascularly intact. There is soft tissue swelling and ecchymosis along the volar aspect of the right wrist. No obvious bony deformity or joint effusion. No pain in the anatomical snuffbox. Neuro oriented x3, CN's II-XII intact bilaterally and no sensory deficits noted Sensorium / Orientation: alert Psych mental status grossly normal Skin Skin Narrative: Superficial abrasion along the right orbit as well as ecchymosis across the right wrist right knee and laceration along the right posterior leg as documented above MDM MDM MDM Narrative Medical decision making narrative: Patient presented to the ER hypertensive but otherwise with stable vitals. She reported a mechanical fall so therefore there is no need for cardiac or syncope workup. She did have signs of mild trauma along the right orbit and we discussed a head CT in order to rule out skull fracture versus traumatic brain injury such as subdural or subarachnoid hemorrhage or potential facial fracture. The patient states she has little concern for this and does not want the CT obtained and therefore will not be ordered. With concern for wrist fracture versus contusion wrist x-ray was ordered and with potential for patellar fracture versus tibial plateau fracture versus ankle fracture x-rays were obtained. She also had right sided rib discomfort and there is concern for rib contusion versus rib fracture versus pneumothorax so a rib series 1 view chest was ordered. The patient's wrist x-ray did show a triquetral fracture but she is closed and neurovascularly intact and therefore she be placed in a Velcro wrist splint for stabilization of this. Rib x-rays showed a right sided sixth rib fracture without pneumo or hemothorax so there is no need for emergent surgical consultation or chest tube placement. X-rays of the knee and ankle revealed no signs of acute trauma. The laceration was sutured as documented below and her vitals remained stable/improved with pain control and she is still able to ambulate. Therefore there is no need for further workup or placement in the hospital and she is otherwise safe for discharge Patient had her right leg wound cleaned with chlorhexidine. It was anesthetized using 15 mL of 2% lidocaine with epinephrine in local fashion. The wound was copiously irrigated with normal saline. The wound was then closed with a 21 3-0 Ethilon sutures in simple interrupted fashion. This brought the wound together well with good approximation. Patient tolerated procedure well without complication History & Record Review Discussion w/independent historian: Patient Radiography Diagnostic Testing: Clinical Impression(s) from Imaging Studies Ankle X-Ray 04/26/24 23:17 IMPRESSION: No evidence of fracture. Electronically Signed: Sue Odell MD at 0:19 EDT , Knee X-Ray 04/26/24 23:17 IMPRESSION: No evidence of fracture. Electronically Signed: Sue Odell MD at 0:23 EDT , Ribs w/Chest X-Ray 04/26/24 23:37 IMPRESSION: Bilateral chronic rib deformities from prior trauma with possible acute fracture right sixth rib posterior laterally. Electronically Signed: Johnathon Matute MD at 0:22 EDT , Wrist X-Ray 04/26/24 23:37 IMPRESSION: Acute triquetral fracture. Electronically Signed: Sue Odell MD at 0:18 EDT , Right ankle x-ray as interpreted by the emergency medicine physician reveals no acute fracture dislocation or joint effusion Right knee x-ray as interpreted by the emergency medicine physician reveals soft tissue swelling without acute fracture dislocation or joint effusion Right wrist x-ray as interpreted by the emergency medicine physician reveals a acute triquetral fracture Right rib series with 1 view chest as interpreted by the emergency medicine physician reveals a right sixth rib fracture without pneumothorax or infiltrate Discharge Plan Triage Chief Complaint: Fall Other Complaint: Laceration ED Provider: Bassam Shah Dx/Rx/DC Orders Clinical Impression: Fracture of triquetral bone of right wrist, Closed rib fracture, Laceration of leg, Rheumatoid arthritis, Restless leg syndrome, Hypertension Instructions: Rib Fracture (Broken Rib), ED Laceration Extremity, ED Fracture, Wrist, General Prescriptions: New oxycodone-acetaminophen [Percocet] 5-325 mg tablet 1 tab PO Q6H PRN (Reason: pain) 3 Days Qty: 12 0RF No Action hydroxychloroquine 200 mg tablet 200 mg PO BID pantoprazole [Protonix] 40 mg tablet,delayed release (DR/EC) 40 mg PO DAILY risedronate 150 mg tablet 150 mg PO QMONTH Qty: 7 1RF Rx Instructions: administer at least 30 minutes before the first food or drink of the day other than water. ropinirole 2 mg tablet extended release 24 hr 4 mg PO TID 90 Days Qty: 540 2RF Primary Care Provider: Gabriel Philippe Referrals: Gabriel Philippe MD [Primary Care Provider] - Kb Caputo DO [Med Staff - Active Staff] - Activity Restrictions/Additional Instructions: Please use the incentive spirometer every hour while you are awake to ensure you are taking deep breaths and prevent pneumonia. Wear your wrist brace to stabilize the fracture of your right wrist and follow-up with Dr. Caputo to discuss need for casting versus other treatment option. Return to the ER or see your family doctor in 10 to 14 days for suture removal. If you have any further concerns or worsening of symptoms please return for repeat evaluation Print Language: Finnish Disposition Disposition: Home, Self Care Discharge Date/Time: 04/27/24 03:10
[2024-04-27 02:56] VITALS: BP 138/88; PULSE 71; RESP 16; TEMP 36.6; O2SAT 96
== END 2024-04-27 03:10 | disposition home or self-care (01) ==
PROVIDERS: Emergency Provider Emergency Medicine; PCP Internal Medicine; Visit Provider Emergency Medicine
DX: S62.111A Displaced fracture of triquetrum [cuneiform] bone, right wrist, initial encounter for closed fracture (principal); M06.9 Rheumatoid arthritis, unspecified; S22.31XA Fracture of one rib, right side, initial encounter for closed fracture; S81.811A Laceration without foreign body, right lower leg, initial encounter; W01.0XXA Fall on same level from slipping, tripping and stumbling without subsequent striking against object, initial encounter; Y93.89 Activity, other specified; Y99.8 Other external cause status; I10 Essential (primary) hypertension; E78.00 Pure hypercholesterolemia, unspecified; G25.81 Restless legs syndrome; Z79.899 Other long term (current) drug therapy; Z87.891 Personal history of nicotine dependence
CPT/HCPCS: 12004; 71101; 73110; 73562; 73610; 99285

== ENCOUNTER 2024-05-01 15:10 | Emergency (ER) | payer MEDICARE, SELFPAY ==
[2024-05-01 15:12] VITALS: BP 117/102; PULSE 103; RESP 18; TEMP 36.6; O2SAT 96; BMI 31.5
--- NOTE | 2024-05-01 15:41 | ED.VIS.LOWEX ---
HPI History of Present Illness Chief Complaint: Edema Informant: patient and friend Narrative Narrative: [79-year-old female presenting to the emergency room with a chief complaint of right leg swelling and pain. Patient has a prior history of DVT. On 26 April patient sustained a fall and injured right leg with laceration. She had stitches placed. At that time x-rays of the knee and ankle did not demonstrate fracture. She had other injuries that were addressed. The patient states that she has developed a significant mount of bruising and swelling. She notes a sharp stabbing pain over the anterior medial aspect of the right knee. She notes some blisters have formed on the skin. She is not currently on any antiplatelets or any anticoagulants. Patient has a follow-up appointment with the [facility] that the stitches removed. Patient denies any change in breathing or any chest pain. Patient notes that she has had a prior lateral tibial plateau fracture about 1.5 years ago. [facility] Medical History Post-thrombotic syndrome Abnormal facial hair Localized swelling of back Acute sinusitis, unspecified Colon cancer screening Nonscarring hair loss Odynophagia Foot pain Lumbar radiculopathy Migraines (09/07/1954) Bone fracture (01/02/23) Edema Numbness in feet Rheumatoid arthritis GERD (gastroesophageal reflux disease) Osteopenia High cholesterol Carpal tunnel syndrome History of blood transfusion Hx of blood clots Bicondylar fracture of right tibia Restless leg syndrome Hypertension Home Medications ?Medication ?Instructions ?Recorded ?Last Taken ?Type hydroxychloroquine 200 mg tablet 200 mg PO BID 04/27/23 Unknown History ropinirole 2 mg tablet,extended 4 mg (2 x 2 mg) PO TID 3 months 11/11/23 Unknown Rx release 24 hr #540 tabs pantoprazole 40 mg tablet,delayed 40 mg PO DAILY 11/25/23 Unknown History release (Protonix) risedronate 150 mg tablet 150 mg PO QMONTH #7 tabs 03/07/24 Unknown Rx oxycodone-acetaminophen 5 mg-325 1 tab PO Q6H PRN pain 3 days #12 04/27/24 Unknown Rx mg tablet (Percocet) tabs Allergy/AdvReac Type Severity Reaction Status Date / Time clopidogrel AdvReac Intermediate Other Verified 05/01/24 15:11 diclofenac AdvReac Intermediate Other Verified 05/01/24 15:11 hydrochlorothiazide AdvReac Intermediate Other Verified 05/01/24 15:11 pregabalin (From Lyrica) AdvReac Intermediate Other Verified 05/01/24 15:11 baclofen AdvReac Mild Other Verified 05/01/24 15:11 carbamazepine (From Tegretol) AdvReac Mild Other Verified 05/01/24 15:11 gabapentin AdvReac Mild Other Verified 05/01/24 15:11 methylphenidate AdvReac Mild Other Verified 05/01/24 15:11 temazepam AdvReac Mild Other Verified 05/01/24 15:11 cyclobenzaprine AdvReac Intermediate Other Uncoded 03/07/24 10:25 cymbalta AdvReac Intermediate Other Uncoded 03/07/24 10:25 calm forte AdvReac Mild Other Uncoded 03/07/24 10:25 Family History Sister Hx of blood clots Mother Hypertension Other Cancer Heart disease Surgical History History of endoscopy History of hysterectomy (03/13/15) History of cataract surgery (03/21/14) History of colonoscopy (08/22/14) History of appendectomy (03/11/1962) History of dilatation and curettage Hx of foot surgery History of carpal tunnel surgery History of uterine suspension procedure Hx of cataract surgery H/O: hysterectomy Social History household members: none Smoking Status: Former smoker alcohol intake: current details: 2 x a week substance use type: does not use what type of physical activity do you participate in: walking ROS ROS ED Constitutional Constitutional ED: Denies chills, fever(s) or weight loss Eyes Eyes: Denies change in vision or diplopia ENT ENT ED: Denies ear pain, rhinorrhea or sore throat Cardiovascular Cardiovascular: Reports other Details: Rib pain ; Denies chest pain, orthopnea, palpitations or racing heartbeat Respiratory/Chest Respiratory/Chest: Denies cough, dyspnea or orthopnea Gastrointestinal Gastrointestinal: Denies abdominal pain, diarrhea, nausea or vomiting Genitourinary Genitourinary ED: Denies dysuria, hematuria or urinary frequency Musculoskeletal Musculoskeletal: Reports other Details: Bilateral right greater than left leg pain. Right leg swelling and bruising. Right leg laceration. ; Denies arthralgias or myalgias Integumentary Denies abscess or rash Neurologic Neurologic: Denies headache(s) or weakness Psychiatric Psychiatric: Denies anxiety, depression, suicidal ideation or suicidal thoughts Endocrine Endocrinology: Denies polydipsia, polyphagia or polyuria Allergic/Immunologic Allergic/Immunologic ED: Denies mouth swelling, tongue swelling or urticaria EXAM Physical Exam Const Vital Signs: 05/01/24 15:12 Temperature 98 F Temperature Source Temporal Pulse Rate 103 H Respiratory Rate 18 Blood Pressure 117/102 H Blood Pressure Mean 107 Pulse Ox 96 Oxygen Delivery Method Room Air Positive well nourished and well developed General Appearance ED: well developed and NAD HEENT Reports normocephalic, head/scalp atraumatic and moist mucous membranes Eyes PERRL and EOMs intact bilaterally Neck no lymphadenopathy, supple and no JVD Resp normal respiratory effort and clear to auscultation bilaterally Cardio regular rate, regular rhythm and no murmurs GI normal to inspection, nondistended, normoactive bowel sounds and non-tender Palpation: soft Back/Spine no CVA tenderness and normal ROM Extremity Extremity Narrative: The right leg has extensive bruising posterior medially of the thigh and down onto the right lower leg. The foot itself is also swollen. There is a healing laceration over the tear medial aspect of the right leg. This is approximately 10 cm. There are a few blister formation of the skin. Over the anterior medial aspect of the leg. There is some ecchymosis/contusion and abrasion over the lateral right knee area as well. Neuro oriented x3 and CN's II-XII intact bilaterally Sensorium / Orientation: alert Motor Exam: strength 5/5 throughout Psych mental status grossly normal Mood & Affect: Negative for depressed or tearful Skin no rashes or lesions noted and no wounds MDM MDM MDM Narrative Medical decision making narrative: Differential diagnosis includes but not limited to fracture cellulitis hematoma muscle tear ligamentous injury meniscal injury tendon injury I performed a bedside ultrasound of the thigh I do not see an obvious DVT in the superficial femoral vein or of the common femoral vein to the level of the knee. The veins were compressible and I do not see debris inside the veins. I do not have ultrasound readily available here for formal scans I can bring the patient back tomorrow but given that there is nothing but above the knee I am not going to give her a dose of Lovenox or start her on anticoagulants. My independent interpretation the plain film of the knee and the tib-fib is no acute fracture. White count is 6.3 hemoglobin 10.7 which is slightly lower than expected for the patient however this may be due to the blood in the soft tissues. Anion gap 7 CO2 23 BUN 21 creatinine 1.22 normal liver enzymes. At this point patient will be discharged home. I am not seeing an obvious need for antibiotics at this time. There is no drainage from the laceration. There is no obvious cellulitic changes. I think the edema is due to soft tissue blood. Would recommend that she ambulate as she tolerated. I would recommend that as she is resting at the office with her foot. Continue local wound care. History & Record Review Discussion w/independent historian: Patient and Friend Additional record(s) reviewed:: Prior inpatient record, Prior ED visit and Prior labs Lab Data Attestation: I reviewed the patient's lab results. Labs: Laboratory Results - last 24 hr 05/01/24 15:47 WBC 6.3 RBC 3.75 L Hgb 10.7 L Hct 33.9 L MCV 90.4 MCH 28.5 MCHC 31.6 L RDW Std Deviation 45.4 H RDW Coeff of Charles 13.8 Plt Count 185 MPV 10.9 Immature Gran % (Auto) 0.300 Neut % (Auto) 71.6 H Lymph % (Auto) 16.0 L Campbell % (Auto) 9.5 Eos % (Auto) 2.1 Baso % (Auto) 0.5 Absolute Neuts (auto) 4.5 Absolute Lymphs (auto) 1.01 Nucleated RBC % 0 PT 14.0 INR 1.1 APTT 28.0 Sodium 138 Potassium 4.1 Chloride 108 H Carbon Dioxide 23.0 Anion Gap 7 BUN 21 H Creatinine 1.22 H Estim Creat Clear Calc 38.42 Est GFR (MDRD) Af Amer 55 L Est GFR (MDRD) Non-Af 45 L BUN/Creatinine Ratio 17.2 Glucose 117 H Calcium 8.4 L Total Bilirubin 0.80 Direct Bilirubin 0.21 AST 25 ALT 22 Alkaline Phosphatase 60 Total Protein 6.7 Albumin 3.3 Globulin 3.4 Radiography Diagnostic Testing: Clinical Impression(s) from Imaging Studies Knee X-Ray 05/01/24 15:55 IMPRESSION: 1. Mild diffuse soft tissue swelling about the knee. 2. Likely patellar tendinopathy. 3. Focal cortical defect in the lateral tibial plateau articular surface with adjacent sclerosis perhaps secondary to a chronic subchondral injury. No definite fracture identified at this location. Consider follow-up CT if there is high suspicion for tibial plateau fracture. Electronically Signed: John VAbdifatah Bajwa DO at 16:14 EDT , Tibia/Fibula X-Ray 05/01/24 15:55 IMPRESSION: Diffuse soft tissue swelling. CT comparison examination. Electronically Signed: John Carlos Manuel Bajwa DO at 16:14 EDT , Discharge Plan Triage Chief Complaint: Edema ED Provider: Hector Landa Dx/Rx/DC Orders Clinical Impression: Right leg swelling, Hematoma of right lower leg, Encounter for re-check of laceration wound, Acute pain of right lower extremity Instructions: ED Contusion, Lower Extremity, ED Wound Check (No Infection) Prescriptions: No Action hydroxychloroquine 200 mg tablet 200 mg PO BID pantoprazole [Protonix] 40 mg tablet,delayed release (DR/EC) 40 mg PO DAILY risedronate 150 mg tablet 150 mg PO QMONTH Qty: 7 1RF Rx Instructions: administer at least 30 minutes before the first food or drink of the day other than water. oxycodone-acetaminophen [Percocet] 5-325 mg tablet 1 tab PO Q6H PRN (Reason: pain) 3 Days Qty: 12 0RF ropinirole 2 mg tablet extended release 24 hr 4 mg PO TID 90 Days Qty: 540 2RF Other Ambulatory Orders: Venous Duplex US, Unilateral (Stat) Facility: [facility] - Location: [facility] Ordered By: Dr. Hector Landa Primary Care Provider: Gabriel Philippe Referrals: Gabriel Philippe MD [Primary Care Provider] - 3-5 Days Print Language: Lithuanian Disposition Disposition: Home, Self Care
[2024-05-01 15:55] LABS: Absolute Lymphocyte Count 1.01 X10^3/uL (0.83-4.51); Absolute Neutrophil Count 4.5 X10^3/uL (2.0-7.7); Basophil# 0.03 X10^3/uL; Basophil% 0.5 % (0-1); Eosinophil# 0.13 X10^3/uL; Eosinophils% 2.1 % (0-5); Hematocrit 33.9 % (37-47); Hemoglobin 10.7 g/dL (12.0-15.0); Lymphocyte # 1.01 X10^3/ul (0.83-4.51); Mean Corp Hgb Conc 31.6 g/dL (32-36); Mean Corpuscular Hgb 28.5 pg (27.0-32.0); Mean Corpuscular Volume 90.4 fL (81-99); Mean Platelet Vol. 10.9 fl (6.2-12.0); Monocyte% 9.5 % (0-10); NRBC Flagged by Analyzer 0 % (0-5); Neutrophil # 4.51 X10^3/uL (2.7-7.7); Neutrophil % 71.6 % (47-70); Platelet Count 185 K/mm3 (150-450); RBC Distribution Width CV 13.8 % (11.6-14.6); RBC Distribution Width SD 45.4 fl (35.1-43.9); Red Blood Count 3.75 M/mm3 (4.2-5.4); White Blood Count 6.3 K/mm3 (4.4-11.0)
--- NOTE | 2024-05-01 15:55 | RAD_ITS ---
EXAM: XR RIGHT KNEE COMPLETE, 4 OR MORE VIEWS CLINICAL INDICATION: injury pain. TECHNIQUE: Four or more views of the right knee. COMPARISON: Leg radiographs on the same date and right knee radiographs, 04/26/2024 FINDINGS: BONES/JOINTS: Focal cortical defect in the lateral tibial plateau articular surface with adjacent sclerosis perhaps secondary to a chronic subchondral injury. No definite fracture identified at this location. Preservation of the joint space. SOFT TISSUES: Mild diffuse soft tissue swelling about the knee. Soft tissue thickening anteriorly. Thickening of the patellar tendon silhouette with soft tissue fullness anterior to the tibial tubercle. No radiopaque foreign body. RAD/Knee 4 or More Views IMPRESSION: 1. Mild diffuse soft tissue swelling about the knee. 2. Likely patellar tendinopathy. 3. Focal cortical defect in the lateral tibial plateau articular surface with adjacent sclerosis perhaps secondary to a chronic subchondral injury. No definite fracture identified at this location. Consider follow-up CT if there is high suspicion for tibial plateau fracture. Electronically Signed: John Bajwa DO at 16:14 EDT ,
--- NOTE | 2024-05-01 15:55 | RAD_ITS ---
EXAM: XR RIGHT TIBIA AND FIBULA, 2 VIEWS CLINICAL INDICATION: pain TECHNIQUE: Frontal and lateral views of the right tibia and fibula. COMPARISON: Knee radiograph on the same date. FINDINGS: BONES/JOINTS: No significant abnormality. No acute fracture. No subluxation. Normal alignment. Preservation of the joint space. No sclerotic or destructive changes observed. SOFT TISSUES: Diffuse soft tissue swelling. No radiopaque foreign body. RAD/Tibia & Fibula 2 Views IMPRESSION: Diffuse soft tissue swelling. CT comparison examination. Electronically Signed: John Bajwa DO at 16:14 EDT ,
[2024-05-01 16:10] LABS: International Normalized Ratio 1.1
[2024-05-01 16:14] LABS: AST(SGOT) 25 U/L (15-37); Alanine Aminotransfer ALT/SGPT 22 U/L (13-56); Albumin, Serum 3.3 g/dL (3.2-5.0); Alkaline Phosphatase 60 U/L (45-117); Anion Gap 7 (5-15); BUN 21 mg/dL (7-18); BUN/Creat Ratio 17.2 RATIO (10-20); Bilirubin, Direct 0.21 mg/dL (0.00-0.30); Calcium,Total 8.4 mg/dL (8.5-10.1); Chloride 108 mmol/L (98-107); Creatinine, Serum 1.22 mg/dL (0.55-1.02); EST Glomerular Filtration Rate 45 mL/min (>60); Est Glom Filt Rate - Afr Amer 55 mL/min (>60); Estimated Creatinine Clearance 38.42 ml/min; Globulin 3.4 g/dL (2.2-4.2); Glucose 117 mg/dL (74-106); Potassium 4.1 mmol/L (3.5-5.1); Protein, Total 6.7 g/dL (6.4-8.2); Sodium Level 138 mmol/L (136-145)
[2024-05-01 16:43] VITALS: BP 117/97; PULSE 81; RESP 19; TEMP 36.7; O2SAT 98
== END 2024-05-01 16:54 | disposition home or self-care (01) ==
PROVIDERS: Emergency Provider Emergency Medicine; PCP Internal Medicine; Visit Provider Emergency Medicine
DX: S80.01XA Contusion of right knee, initial encounter (principal); W19.XXXA Unspecified fall, initial encounter; I10 Essential (primary) hypertension; Z48.01 Encounter for change or removal of surgical wound dressing; Z79.899 Other long term (current) drug therapy; Z86.718 Personal history of other venous thrombosis and embolism; Z87.891 Personal history of nicotine dependence
CPT/HCPCS: 73564; 73590; 80048; 80076; 85025; 85610; 85730; 99282; A4216

== ENCOUNTER → 2024-05-05 | Outpatient (CLI) | payer MEDICARE, SELFPAY ==
[2024-05-05 16:33] LABS: Absolute Lymphocyte Count 1.05 X10^3/uL (0.83-4.51); Absolute Neutrophil Count 4.3 X10^3/uL (2.0-7.7); Basophil# 0.04 X10^3/uL; Basophil% 0.6 % (0-1); Eosinophil# 0.15 X10^3/uL; Eosinophils% 2.4 % (0-5); Hematocrit 32.8 % (37-47); Hemoglobin 10.4 g/dL (12.0-15.0); Lymphocyte # 1.05 X10^3/ul (0.83-4.51); Mean Corp Hgb Conc 31.7 g/dL (32-36); Mean Corpuscular Hgb 28.4 pg (27.0-32.0); Mean Corpuscular Volume 89.6 fL (81-99); Mean Platelet Vol. 10.9 fl (6.2-12.0); Monocyte# 0.62 X10^3/uL; Monocyte% 10.1 % (0-10); NRBC Flagged by Analyzer 0 % (0-5); Neutrophil # 4.27 X10^3/uL (2.7-7.7); Neutrophil % 69.4 % (47-70); Platelet Count 260 K/mm3 (150-450); RBC Distribution Width CV 13.5 % (11.6-14.6); RBC Distribution Width SD 44.5 fl (35.1-43.9); Red Blood Count 3.66 M/mm3 (4.2-5.4); White Blood Count 6.2 K/mm3 (4.4-11.0)
[2024-05-05 17:02] LABS: ALB/GLOB Ratio 0.9 RATIO (0.9-2.4); AST(SGOT) 20 U/L (15-37); Alanine Aminotransfer ALT/SGPT 20 U/L (13-56); Albumin, Serum 3.3 g/dL (3.2-5.0); Alkaline Phosphatase 76 U/L (45-117); Anion Gap 6 (5-15); BUN 23 mg/dL (7-18); Calcium,Total 8.9 mg/dL (8.5-10.1); Chloride 109 mmol/L (98-107); Creatinine, Serum 1.15 mg/dL (0.55-1.02); EST Glomerular Filtration Rate 48 mL/min (>60); Est Glom Filt Rate - Afr Amer 58 mL/min (>60); Globulin 3.6 g/dL (2.2-4.2); Glucose 101 mg/dL (74-106); Potassium 4.3 mmol/L (3.5-5.1); Protein, Total 6.9 g/dL (6.4-8.2); Sodium Level 138 mmol/L (136-145)
== END | disposition home or self-care (01) ==
LOC: BIMLAB 16:10
PROVIDERS: PCP Internal Medicine; Referring Provider Internal Medicine; Visit Provider Internal Medicine
DX: L03.90 Cellulitis, unspecified (principal)
CPT/HCPCS: 36415; 80053; 85025; 86140

== ENCOUNTER → 2024-05-06 | Outpatient (CLI) | payer MEDICARE, SELFPAY ==
--- NOTE | 2024-05-06 09:16 | CT_ITS ---
CT RIGHT LOWER EXTREMITY WITH 3-D IMAGING CLINICAL INDICATION: Right Leg Cellulitis TECHNIQUE: Axial CT images of the RIGHT lower extremity was performed with IV contrast material. Coronal and sagittal reformats were provided. The protocol utilizes one or more of the following dose reduction techniques: automated exposure control, adjustment of mA and/or kV according to patient size,and/or use of iterative reconstruction technique. RADIATION DOSAGE (If Supplied By Facility): CTDIvol = ( 7.42 ) mGy, DLP = ( 788.29 ) mGycm COMPARISON: FINDINGS: Bones: Osseous structures are normal without evidence of fracture or dislocation. No lytic or blastic osseous masses. Soft Tissues: The deep soft tissue structures are unremarkable. There is evidence of edema in the subcutaneous fat with overlying skin thickening involving the distal portion of the proximal lower extremity down to the level of the ankle. It becomes more prominent distally. No evidence of abscess. No bony abnormality is seen. CT/Extremity Lower WITH Contrast IMPRESSION: Findings in keeping with cellulitis of the right lower extremity more prominent distally. No focal abscess or abnormal fluid collection is seen. Electronically Signed: Krish Becker MD at 9:54 EDT ,
--- NOTE | 2024-05-06 09:42 | CT_ITS ---
STUDY: CT SCAN WRIST RIGHT REASON FOR EXAM: Female, 79 years old. FX OF TRIQUETRUM BONE RADIATION DOSAGE (If Supplied By Facility): CTDIvol = ( 24.58 ) mGy, DLP = ( 536.02 ) mGycm. Individualized dose optimization techniques were used for this CT.? TECHNIQUE: Multiple axial tomographic images were obtained without intravenous contrast administration. Sagittal and coronal reconstruction was obtained as well. COMPARISON: None. FINDINGS: There is evidence of a nondisplaced fracture through the pisiform. Diffuse soft tissue swelling. Cystic changes seen in the carpal lunate bone. CT/Extremity Upper without Contra IMPRESSION: Nondisplaced fracture of the pisiform. Diffuse soft tissue swelling. Electronically Signed: Krish Becker MD at 10:15 EDT ,
== END | disposition home or self-care (01) ==
LOC: CT 09:09
PROVIDERS: PCP Internal Medicine; Referring Provider Internal Medicine; Visit Provider Internal Medicine
DX: S62.114D Nondisplaced fracture of triquetrum [cuneiform] bone, right wrist, subsequent encounter for fracture with routine healing (principal); X58.XXXD Exposure to other specified factors, subsequent encounter; L03.115 Cellulitis of right lower limb
CPT/HCPCS: 73200; 73701; Q9967

== ENCOUNTER 2024-05-10 09:09 | Emergency (ER) | payer MEDICARE, SELFPAY ==
[2024-05-10 09:10] VITALS: BP 144/77; PULSE 87; RESP 19; TEMP 36.2; O2SAT 100
--- NOTE | 2024-05-10 09:43 | VDLE_ITS ---
Reason For Study: Pain RLE RIGHT LEFT GSV is normal. CFV is compressible, spontaneous, phasic, CFV is compressible, spontaneous, phasic, competent, and demonstrates normal competent and demonstrates normal augmentation. augmentation. FV is compressible, spontaneous, phasic, competent and demonstrates normal augmentation. POP V is compressible, spontaneous, phasic, competent and demonstrates normal augmentation. T/P Trunk is compressible. PTV is compressible. RT PerV is compressible. Lymph node noted Rt Groin measuring 2.79cm x 0.82cm Hypoechoic, non vascular structure noted Rt Distal Thigh measuring 5.07cm x 1.10cm (over area of injury). Procedure This is a venous duplex using B-mode, color flow and spectral Doppler. Exam performed portable in ED. A preliminary report was called and/or faxed to Dr. Martinez. VL/Venous Duplex US, Unilateral Interpretation Summary Deep veins of the right lower extremity are patent and compressible segmentally . There is no evidence of right lower extremity deep vein thrombosis. The right great [place] us vein appears patent and compressible segmentally. Prominent right inguinal lymph node note measuring 2.79cm x 0.82cm Hypoechoic, non vascular structure noted right distal thigh measuring 5.07cm x 1.10cm. Ordering Physician: Carol Martinez Referring Physician: Gabriel Philippe Performed By: Gabrielle Bailon, RDCS, RVT
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
[2024-05-10 11:00] VITALS: BP 145/77; PULSE 71; RESP 18; TEMP 36.4; O2SAT 94
[2024-05-10 12:00] VITALS: BP 137/71; PULSE 87; RESP 18; TEMP 36.4; O2SAT 98
[2024-05-10 12:29] LABS: Absolute Lymphocyte Count 1.26 X10^3/uL (0.83-4.51); Absolute Neutrophil Count 4.8 X10^3/uL (2.0-7.7); Basophil# 0.04 X10^3/uL; Basophil% 0.6 % (0-1); Eosinophil# 0.11 X10^3/uL; Eosinophils% 1.6 % (0-5); Hematocrit 34.6 % (37-47); Lymphocyte # 1.26 X10^3/ul (0.83-4.51); Lymphocyte % 18.7 % (19-41); Mean Corp Hgb Conc 31.8 g/dL (32-36); Mean Corpuscular Hgb 28.5 pg (27.0-32.0); Mean Corpuscular Volume 89.6 fL (81-99); Mean Platelet Vol. 10.4 fl (6.2-12.0); Monocyte# 0.47 X10^3/uL; NRBC Flagged by Analyzer 0 % (0-5); Neutrophil # 4.82 X10^3/uL (2.7-7.7); Neutrophil % 71.7 % (47-70); Platelet Count 279 K/mm3 (150-450); RBC Distribution Width CV 13.6 % (11.6-14.6); Red Blood Count 3.86 M/mm3 (4.2-5.4); White Blood Count 6.7 K/mm3 (4.4-11.0)
[2024-05-10 12:44] LABS: Anion Gap 4 (5-15); BUN 19 mg/dL (7-18); BUN/Creat Ratio 17.9 RATIO (10-20); CRP 8.18 mg/L (0.0-3.0); Calcium,Total 9.4 mg/dL (8.5-10.1); Chloride 108 mmol/L (98-107); Creatinine, Serum 1.06 mg/dL (0.55-1.02); EST Glomerular Filtration Rate 53 mL/min (>60); Est Glom Filt Rate - Afr Amer 64 mL/min (>60); Glucose 90 mg/dL (74-106); Potassium 4.1 mmol/L (3.5-5.1); Sodium Level 139 mmol/L (136-145)
[2024-05-10 13:00] VITALS: BP 144/75; PULSE 81; RESP 18; TEMP 36.4; O2SAT 98
[2024-05-10 13:59] VITALS: BP 144/75; PULSE 80; RESP 18; TEMP 36.4; O2SAT 98
== END 2024-05-10 14:16 | disposition home or self-care (01) ==
PROVIDERS: Emergency Provider Emergency Medicine; PCP Internal Medicine; Visit Provider Emergency Medicine
DX: Z48.02 Encounter for removal of sutures (principal); S81.811A Laceration without foreign body, right lower leg, initial encounter; Z86.718 Personal history of other venous thrombosis and embolism; Z87.891 Personal history of nicotine dependence; W19.XXXA Unspecified fall, initial encounter
CPT/HCPCS: 80048; 85025; 86140; 93971; 99283; A4216

== ENCOUNTER → 2024-05-10 | Outpatient (CLI) | payer MEDICARE, SELFPAY ==
[2024-05-10 15:56] LABS: Absolute Lymphocyte Count 1.31 X10^3/uL (0.83-4.51); Absolute Neutrophil Count 4.3 X10^3/uL (2.0-7.7); Basophil# 0.03 X10^3/uL; Basophil% 0.5 % (0-1); Eosinophil# 0.12 X10^3/uL; Eosinophils% 1.9 % (0-5); Hematocrit 34.3 % (37-47); Hemoglobin 11.1 g/dL (12.0-15.0); Lymphocyte # 1.31 X10^3/ul (0.83-4.51); Lymphocyte % 20.9 % (19-41); Mean Corp Hgb Conc 32.4 g/dL (32-36); Mean Corpuscular Hgb 28.9 pg (27.0-32.0); Mean Corpuscular Volume 89.3 fL (81-99); Mean Platelet Vol. 10.4 fl (6.2-12.0); Monocyte# 0.47 X10^3/uL; Monocyte% 7.5 % (0-10); NRBC Flagged by Analyzer 0 % (0-5); Neutrophil # 4.33 X10^3/uL (2.7-7.7); Neutrophil % 68.9 % (47-70); Platelet Count 280 K/mm3 (150-450); RBC Distribution Width CV 13.6 % (11.6-14.6); RBC Distribution Width SD 44.4 fl (35.1-43.9); Red Blood Count 3.84 M/mm3 (4.2-5.4); White Blood Count 6.3 K/mm3 (4.4-11.0)
[2024-05-10 16:31] LABS: ALB/GLOB Ratio 0.9 RATIO (0.9-2.4); AST(SGOT) 20 U/L (15-37); Alanine Aminotransfer ALT/SGPT 22 U/L (13-56); Albumin, Serum 3.3 g/dL (3.2-5.0); Alkaline Phosphatase 102 U/L (45-117); Anion Gap 5 (5-15); BUN 18 mg/dL (7-18); BUN/Creat Ratio 17.5 RATIO (10-20); Calcium,Total 9.7 mg/dL (8.5-10.1); Chloride 108 mmol/L (98-107); Creatinine, Serum 1.03 mg/dL (0.55-1.02); EST Glomerular Filtration Rate 55 mL/min (>60); Est Glom Filt Rate - Afr Amer 66 mL/min (>60); Globulin 3.5 g/dL (2.2-4.2); Glucose 89 mg/dL (74-106); Protein, Total 6.8 g/dL (6.4-8.2); Sodium Level 139 mmol/L (136-145)
== END | disposition home or self-care (01) ==
PROVIDERS: PCP Internal Medicine; Referring Provider Internal Medicine Rheumatology; Visit Provider Internal Medicine Rheumatology
DX: M05.79 Rheumatoid arthritis with rheumatoid factor of multiple sites without organ or systems involvement (principal); M79.7 Fibromyalgia; Z79.899 Other long term (current) drug therapy
CPT/HCPCS: 80053; 85025

== ENCOUNTER 2024-05-31 14:30 | Outpatient (RCR) | payer MEDICARE, SELFPAY ==
[2024-05-17 13:42] VITALS: BP 140/93; PULSE 81; RESP 18; TEMP 36.2
[2024-05-17 14:05] VITALS: BMI 30.9
--- NOTE | 2024-05-18 08:40 | WC ---
PHOTO 05/17/24 RIGHT SUPERIOR MEDIAL KNEE
--- NOTE | 2024-05-18 08:42 | WC ---
PHOTO 05/17/24 INFERIOR RIGHT KNEE
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
[2024-05-24 13:48] VITALS: BP 127/64; PULSE 75; RESP 18; TEMP 36.4; BMI 30.9
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
[2024-05-31 14:20] VITALS: BP 157/59; PULSE 77; RESP 18; TEMP 36.1; BMI 30.9
--- NOTE | 2024-05-31 15:27 | PCM.WC.HP ---
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 hypertension PLAN: Plan The patient is an 79-year-old female who sustained trauma to the right lower extremity on April 26, 2024. As a result, she sustained a large laceration to the right medial leg, at knee and proximal calf level, for which suture closure was performed in the Emergency Department at [facility]. She also sustained an open wound on the right lateral knee. Other injuries also occurred, for which other physicians are involved. These injuries include a right pisiform fracture which is nondisplaced, as well as a right rib fracture. She also sustained other bruises and contusions. She presented for evaluation and management of her right lower extremity wounds. Sutures were removed from the right medial leg laceration in the ER approximately 2 weeks following placement. Immediately upon removal, dehiscence of the laceration was noted. Prior to presentation, the patient had been treated with oral doxycycline and cephalexin, which have both been completed. [facility]. There is a moderate amount of nonviable and necrotic tissue remaining within the medial, clustered wounds, some of which was not amenable to removal by mechanical debridement. Therefore, we are to implement the use collagenase Santyl topically, which will be applied by the patient on a daily basis. The patient has been instructed in the appropriate means of application. She has also been given a coupon to mitigate the expense of the collagenase Santyl. Because of the development of migdalia-wound erythema, there is a suspicion of developing cellulitis. Therefore, we have obtained swab cultures for aerobic and anaerobic bacterial growth. Culture results will be awaited. If indicated, appropriate antibiotic coverage will be prescribed. We are to implement the use of collagen hydrogel topically to the lateral knee wound, which appears to be healing quite well. The patient is to continue the use of Optilock absorbent dressings. To minimize swelling, the patient has been advised to elevate her lower extremity as much as possible. Elevation is to be to heart level, or higher. She admits to a lack of compliance. She is to continue sleeping on a flat mattress at night. Activity has been encouraged. Prolonged idle sitting has been discouraged. Nutritional optimization has been encouraged. The patient claims to be experiencing a significant amount of discomfort as result of her wounds, and has requested a renewal of her narcotic analgesic, obtained while in the ER. A prescription has been forwarded to the [facility] retail pharmacy for oxycodone/acetaminophen 5/325, a total of 14 tablets. The patient is to return in 1 week for reassessment. Total time: 25 minutes
== END 2024-06-06 23:59 | disposition home or self-care (01) ==
LOC: WC 14:30
PROVIDERS: PCP Internal Medicine; Referring Provider Surgery; Visit Provider Surgery
DX: T81.33XA Disruption of traumatic injury wound repair, initial encounter (principal); L97.912 Non-pressure chronic ulcer of unspecified part of right lower leg with fat layer exposed; M06.9 Rheumatoid arthritis, unspecified; V48 Car occupant injured in noncollision transport accident; Y84.8 Other medical procedures as the cause of abnormal reaction of the patient, or of later complication, without mention of misadventure at the time of the procedure; G43.909 Migraine, unspecified, not intractable, without status migrainosus; E78.00 Pure hypercholesterolemia, unspecified; I10 Essential (primary) hypertension; G25.81 Restless legs syndrome; S81.811S Laceration without foreign body, right lower leg, sequela; S81.001S Unspecified open wound, right knee, sequela; S62.164D Nondisplaced fracture of pisiform, right wrist, subsequent encounter for fracture with routine healing; M81.0 Age-related osteoporosis without current pathological fracture; M54.16 Radiculopathy, lumbar region; K21.9 Gastro-esophageal reflux disease without esophagitis; Z79.891 Long term (current) use of opiate analgesic; Z79.83 Long term (current) use of bisphosphonates; Z79.899 Other long term (current) drug therapy; Z86.718 Personal history of other venous thrombosis and embolism; Z87.891 Personal history of nicotine dependence; I87.009 Postthrombotic syndrome without complications of unspecified extremity
CPT/HCPCS: 11042; 11045; 87070; 87075; 87077; 87186; 87205; 99213; G0463

== ENCOUNTER 2024-07-05 13:00 | Outpatient (RCR) | payer MEDICARE, SELFPAY ==
[2024-06-07 00:25] VITALS: BP 157/59; PULSE 77; RESP 18; TEMP 36.1; BMI 30.9
[2024-06-07 13:15] VITALS: BP 155/76; PULSE 76; RESP 18; TEMP 36.2; BMI 30.9
--- NOTE | 2024-06-08 11:53 | WC ---
PHOTO RIGHT LATERAL KNEE 06/07/24
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
[2024-06-14 13:01] VITALS: BP 102/63; PULSE 85; RESP 18; BMI 30.9
--- NOTE | 2024-06-15 19:58 | HP.PCM_ITS ---
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 elevate her lower extremity as much as possible. Elevation is to be to heart level, or higher. She is to continue sleeping on a flat mattress at night. Activity has been encouraged. Prolonged idle sitting has been discouraged. Nutritional optimization has been encouraged. The patient is to return in 1 week for reassessment. Total time: 25 minutes
[2024-06-21 13:08] VITALS: BP 160/50; PULSE 86; RESP 18; TEMP 35.7; BMI 30.9
--- NOTE | 2024-06-21 16:26 | PCM.WC.HP ---
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 GERD (gastroesophageal reflux disease): CODE(S): K21.9 - Gastro-esophageal reflux disease without esophagitis (20) Osteopenia: CODE(S): M85.80 - Other specified disorders of bone density and structure, unspecified site (21) Restless leg syndrome: CODE(S): G25.81 - Restless legs syndrome (22) Hypertension: CODE(S): I10 - Essential (primary) hypertension PLAN: Plan The patient is an 79-year-old female who sustained trauma to the right lower extremity on April 26, 2024. As a result, she sustained a large laceration to the right medial leg, at knee and proximal calf level, for which suture closure was performed in the Emergency Department at [facility]. She also sustained an open wound on the right lateral knee. Other injuries also occurred, for which other physicians are involved. These injuries include a right pisiform fracture which is nondisplaced, as well as a right rib fracture. She also sustained other bruises and contusions. Sutures were removed from the right medial leg laceration in the ER approximately 2 weeks following placement. Immediately upon removal, dehiscence of the laceration was noted. The traumatic wound on the right lateral knee remains completely healed and epithelialized. Debridement has been performed relative to the wounds of the right medial leg. These wounds have demonstrated improvement, with increasing areas of pink, healthy granulation tissue, and a decrease in overall size. There is a small amount of bioburden and nonviable tissue. We are to continue the use of collagenase Santyl topically, which will be applied by the patient on a daily basis. The patient has been instructed in the appropriate means of application. Optilock absorbent dressings will also be continued. Because of the development of migdalia-wound erythema several weeks ago, swab cultures were obtained for aerobic and anaerobic bacterial growth. The cultures were positive for Pseudomonas aeruginosa, for which the patient was prescribed Cipro 500 mg p.o. twice daily for a total of 10 days. The patient's culture was also positive for anaerobic cocci and Cutibacterium acnes, for which the patient was placed on metronidazole 500 mg p.o. 3 times daily for 7 days. The courses of both antibiotics have been completed. To minimize swelling, the patient has been advised to elevate her lower extremity as much as possible. Elevation is to be to heart level, or higher. She is to continue sleeping on a flat mattress at night. Activity has been encouraged. Prolonged idle sitting has been discouraged. Tubigrip's have also been dispensed for compression on a daily basis. Nutritional optimization has been encouraged. The patient is to return in 1 week for reassessment. Total time: 26 minutes
--- NOTE | 2024-06-23 11:09 | WC ---
PHOTO RIGHT MEDIAL KNEE 06/21/24
[2024-06-28 13:12] VITALS: BP 154/75; PULSE 90; RESP 16; TEMP 36.6; BMI 30.9
--- NOTE | 2024-06-29 10:30 | HP.PCM_ITS ---
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 Rinsed/ Rinsed/ Irrigated with Irrigated with Irrigated with Saline Saline Saline -Bioengineered Tissue No No -Bleeding Controlled with Pressure Pressure Pressure -Treatment Response Procedure Procedure Procedure Tolerated Well Tolerated Well Tolerated Well -Debridement - Subq, 1st 20sq cm No No No #1 Right Superior Medial Knee -Time 13:26 13:20 13:25 -Correct Patient Yes Yes Yes -Correct Side, Site, Position Yes Yes Yes -Correct Procedure Yes Yes Yes -Procedure Performed Yes Yes Yes -Type of Procedure Debridement Debridement Debridement -Clinical Debridement Subcutaneous Subcutaneous Subcutaneous -Tissue Removed Subcutaneous Subcutaneous Subcutaneous -Post Debridement (cm) - Length 8.4 8.0 7.8 -Post Debridement (cm) - Width 1.0 1.0 0.9 -Post Debridement (cm) - Depth 0.5 0.5 0.3 -Total Square (Post) (cm) 8.40 8.00 7.02 -Area of Debridement (cm) - Length 8.4 8.0 7.8 -Area of Debridement (cm) - Width 1.0 1.0 0.9 -Total Square (Area) (cm) 8.40 8.00 7.02 -Tunneling No No No -Undermining/Tunneling No No No -Circular Undermining No No No -Wound/Ulcer Outcome Not Healed Not Healed Not Healed -Ulcer Cleansing Rinsed/ Rinsed/ Rinsed/ Irrigated with Irrigated with Irrigated with Saline Saline Saline -Bioengineered Tissue No No No -Bleeding Controlled with Pressure Pressure Pressure,Silver Nitrate -Treatment Response Procedure Procedure Procedure Tolerated Well Tolerated Well Tolerated Well -Debridement - Subq, 1st 20sq cm Yes Yes Yes -Debridement, SubQ, ea addt'l 20sq cm 1 or part thereof Pain Scale: 0-10 Numeric Is Patient Pain Free? Yes Yes Yes 06/28/24 13:33 Wound Center Nurse 2 5-right medial knee -Time 13:33 -Correct Patient Yes -Correct Side, Site, Position Yes -Correct Procedure Yes -Procedure Performed Yes -Type of Procedure Debridement -Clinical Debridement Subcutaneous -Tissue Removed Subcutaneous #4 RT MEDIAL KNEE -Correct Patient -Correct Side, Site, Position -Correct Procedure -Procedure Performed -Type of Procedure -Clinical Debridement -Tissue Removed #3 Right Lateral Knee -Time -Procedure Performed -Tunneling -Undermining/Tunneling -Circular Undermining -Wound/Ulcer Outcome #2 Right Inferior Medial Knee -Time 13:33 -Correct Patient Yes -Correct Side, Site, Position Yes -Correct Procedure Yes -Procedure Performed Yes -Type of Procedure Debridement -Clinical Debridement Subcutaneous -Tissue Removed Subcutaneous -Post Debridement (cm) - Length 4.0 -Post Debridement (cm) - Width 0.5 -Post Debridement (cm) - Depth 0.1 -Total Square (Post) (cm) 2.00 -Area of Debridement (cm) - Length 4.0 -Area of Debridement (cm) - Width 0.5 -Total Square (Area) (cm) 2.00 -Tunneling No -Undermining/Tunneling No -Circular Undermining No -Wound/Ulcer Outcome Not Healed -Ulcer Cleansing Rinsed/ Irrigated with Saline -Bioengineered Tissue No -Bleeding Controlled with Pressure -Treatment Response Procedure Tolerated Well -Debridement - Subq, 1st 20sq cm Yes #1 Right Superior Medial Knee -Time 13:34 -Correct Patient Yes -Correct Side, Site, Position Yes -Correct Procedure Yes -Procedure Performed Yes -Type of Procedure Debridement -Clinical Debridement Subcutaneous -Tissue Removed Subcutaneous -Post Debridement (cm) - Length 7.5 -Post Debridement (cm) - Width 0.7 -Post Debridement (cm) - Depth 0.2 -Total Square (Post) (cm) 5.25 -Area of Debridement (cm) - Length 7.5 -Area of Debridement (cm) - Width 0.7 -Total Square (Area) (cm) 5.25 -Tunneling No -Undermining/Tunneling No -Circular Undermining No -Wound/Ulcer Outcome Not Healed -Ulcer Cleansing Rinsed/ Irrigated with Saline -Bioengineered Tissue No -Bleeding Controlled with Pressure -Treatment Response Procedure Tolerated Well -Debridement - Subq, 1st 20sq cm No -Debridement, SubQ, ea addt'l 20sq cm or part thereof Pain Scale: 0-10 Numeric Is Patient Pain Free? Yes WC - Nurse 3 - General Ulcer D/C NN Start: 06/07/24 13:15 Freq: Status: Active Protocol: Activity Type Activity Date Activity User E-sign Co-sign Detail Recorded Client Recorded Date Recorded By Document 06/07/24 13:47 RB [id number] 06/07/24 13:49 RB Document 06/14/24 13:34 RB [id number] 06/14/24 13:35 RB Document 06/21/24 13:45 [id number] [id number] 06/21/24 13:47 Document 06/28/24 14:04 RB [id number] 06/28/24 14:04 RB 06/07/24 06/14/24 06/21/24 13:47 13:34 13:45 Wound Care Center Nurse 3 5-right medial knee -Ulcer Cleansing Rinsed/ Irrigated with Saline -Other Dressing santyl ointment -Primary Dressing Covered/Secured with Dry Gauze & Roll Gauze, Secured with Tape #3 Right Lateral Knee -Ulcer Cleansing Wound Cleanser -Other Dressing hydrogel/abd pad -Primary Dressing Covered/Secured with Dry Gauze,Dry Gauze & Roll Gauze,Secured with Tape #2 Right Inferior Medial Knee -Ulcer Cleansing Wound Cleanser Wound Cleanser Rinsed/ Irrigated with Saline -Foul Odor after Cleansing No -Other Dressing hydrogel/ abd SANTYL/ABD PAD santyl ointment pad -Primary Dressing Covered/Secured with Dry Gauze & Dry Gauze & Dry Gauze & Roll Gauze, Roll Gauze, Roll Gauze, Secured with Secured with Secured with Tape Tape Tape #1 Right Superior Medial Knee -Ulcer Cleansing Wound Cleanser Wound Cleanser Rinsed/ Irrigated with Saline -Foul Odor after Cleansing No -Other Dressing hydrogel SANTYL santyl ointment -Primary Dressing Covered/Secured with Dry Gauze & Dry Gauze & Dry Gauze & Roll Gauze, Roll Gauze, Roll Gauze, Secured with Secured with Secured with Tape Tape Tape right knee -Tubular Bandage Double Layer -Size of Tubigrip Used Size E -Size E ($) 2 -Other earl EARL Treatment Response Procedure Procedure Tolerated Well Tolerated Well Pain Scale: 0-10 Numeric Is Patient Pain Free? Yes Yes Yes Teaching: Wound Center Dressing Your Wound -Person Taught Patient -Teaching Method Discussion, Demonstration -Response to teaching Verbalize Understanding WC - Visit Discharge Discharge Condition Stable Stable Stable Ambulatory Status Ambulatory Ambulatory Ambulatory Transportation Private Auto Private Auto Private Auto Medication Reconcilliation completed & No No Yes provided to patient/care provider Clinical Summary of Care Provided Yes Yes Yes 06/28/24 14:04 Wound Care Center Nurse 3 5-right medial knee -Ulcer Cleansing -Other Dressing -Primary Dressing Covered/Secured with #3 Right Lateral Knee -Ulcer Cleansing -Other Dressing -Primary Dressing Covered/Secured with #2 Right Inferior Medial Knee -Ulcer Cleansing -Foul Odor after Cleansing -Other Dressing SANTYL -Primary Dressing Covered/Secured with Dry Gauze,Dry Gauze & Roll Gauze,Secured with Tape #1 Right Superior Medial Knee -Ulcer Cleansing -Foul Odor after Cleansing -Other Dressing SANTYL -Primary Dressing Covered/Secured with Dry Gauze,Dry Gauze & Roll Gauze,Secured with Tape right knee -Tubular Bandage Single Layer -Size of Tubigrip Used Size E -Size E ($) 1 -Other Treatment Response Pain Scale: 0-10 Numeric Is Patient Pain Free? Yes Teaching: Wound Center Dressing Your Wound -Person Taught -Teaching Method -Response to teaching WC - Visit Discharge Discharge Condition Stable Ambulatory Status Ambulatory Transportation Private Auto Medication Reconcilliation completed & No provided to patient/care provider Clinical Summary of Care Provided Yes Charges/Coding Procedures Integumentary [id number]: [id number] Kay subq tissue 20 sq cm/< Assessment/Plan Assessment/Plan (1) 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 exposed: CODE(S): L97.912 - Non-pressure chronic ulcer of unspecified part of right lower leg with fat layer exposed (2) Traumatic open wound of right lower leg with delayed healing: CODE(S): S81.801D - Unspecified open wound, right lower leg, subsequent encounter (3) Surgical wound dehiscence: CODE(S): T81.31XA - Disruption of external operation (surgical) wound, not elsewhere classified, initial encounter QUALIFIERS: Encounter type: subsequent encounter Qualified Code(s): T81.31XD - Disruption of external operation (surgical) wound, not elsewhere classified, subsequent encounter (4) Post-thrombotic syndrome: CODE(S): I87.009 - Postthrombotic syndrome without complications of unspecified extremity (5) History of DVT of lower extremity: CODE(S): Z86.718 - Personal history of other venous thrombosis and embolism (6) History of blood clots: CODE(S): Z86.718 - Personal history of other venous thrombosis and embolism (7) Rheumatoid arthritis: CODE(S): M06.9 - Rheumatoid arthritis, unspecified (8) High cholesterol: CODE(S): E78.00 - Pure hypercholesterolemia, unspecified (9) Osteoporosis: CODE(S): M81.0 - Age-related osteoporosis without current pathological fracture (10) Osteoarthritis: CODE(S): M19.90 - Unspecified osteoarthritis, unspecified site (11) Lumbar radiculopathy: CODE(S): M54.16 - Radiculopathy, lumbar region (12) History of dilatation and curettage: CODE(S): Z98.890 - Other specified postprocedural states (13) Hx of foot surgery: CODE(S): Z98.890 - Other specified postprocedural states (14) History of carpal tunnel surgery: CODE(S): Z98.890 - Other specified postprocedural states (15) History of uterine suspension procedure: CODE(S): Z98.890 - Other specified postprocedural states; Z87.448 - Personal history of other diseases of urinary system (16) Hx of cataract surgery: CODE(S): Z98.49 - Cataract extraction status, unspecified eye (17) Migraines: CODE(S): G43.909 - Migraine, unspecified, not intractable, without status migrainosus (18) Rheumatoid arthritis: CODE(S): M06.9 - Rheumatoid arthritis, unspecified (19) GERD (gastroesophageal reflux disease): CODE(S): K21.9 - Gastro-esophageal reflux disease without esophagitis (20) Osteopenia: CODE(S): M85.80 - Other specified disorders of bone density and structure, unspecified site (21) Restless leg syndrome: CODE(S): G25.81 - Restless legs syndrome (22) Hypertension: CODE(S): I10 - Essential (primary) hypertension PLAN: Plan The patient is an 79-year-old female who sustained trauma to the right lower extremity on April 26, 2024. As a result, she sustained a large laceration to the right medial leg, at knee and proximal calf level, for which suture closure was performed in the Emergency Department at [facility]. She also sustained an open wound on the right lateral knee. Other injuries also occurred, for which other physicians are involved. These injuries include a right pisiform fracture which is nondisplaced, as well as a right rib fracture. She also sustained other bruises and contusions. Sutures were removed from the right medial leg laceration in the ER approximately 2 weeks following placement. Immediately upon removal, dehiscence of the laceration was noted. The traumatic wound on the right lateral knee remains completely healed and epithelialized. Debridement has been performed relative to the wounds of the right medial leg. These wounds have demonstrated improvement, with increasing areas of pink, healthy granulation tissue, and a decrease in overall size. There is a small amount of bioburden and nonviable tissue. We are to continue the use of collagenase Santyl topically, which will be applied by the patient on a daily basis. The patient has been instructed in the appropriate means of application. Optilock absorbent dressings will also be continued as needed, though the patient indicates that the amount of drainage has decreased to almost nothing. To minimize swelling, the patient has been advised to elevate her lower extremity as much as possible. Elevation is to be to heart level, or higher. She is to continue sleeping on a flat mattress at night. Activity has been encouraged. Prolonged idle sitting has been discouraged. Tubigrip's have also been dispensed for compression on a daily basis. Nutritional optimization has been encouraged. The patient is to return in 1 week for reassessment. Total time: 26 minutes
[2024-07-05 13:06] VITALS: BP 175/62; PULSE 79; RESP 18; TEMP 36.6; BMI 30.9
--- NOTE | 2024-07-05 21:27 | HP.PCM_ITS ---
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 -Undermining/Tunneling No -Circular Undermining No -Wound/Ulcer Outcome Healed- Epithelialized #2 Right Inferior Medial Knee -Time 13:26 13:20 13:25 -Correct Patient Yes Yes Yes -Correct Side, Site, Position Yes Yes Yes -Correct Procedure Yes Yes Yes -Procedure Performed Yes Yes Yes -Type of Procedure Debridement Debridement Debridement -Clinical Debridement Subcutaneous Subcutaneous Subcutaneous -Tissue Removed Subcutaneous Subcutaneous Subcutaneous -Post Debridement (cm) - Length 8.0 7.0 5.5 -Post Debridement (cm) - Width 1.9 1.0 0.9 -Post Debridement (cm) - Depth 0.2 0.2 0.2 -Total Square (Post) (cm) 15.20 7.00 4.95 -Area of Debridement (cm) - Length 8.0 7.0 5.5 -Area of Debridement (cm) - Width 1.9 1.0 0.9 -Total Square (Area) (cm) 15.20 7.00 4.95 -Tunneling No No No -Undermining/Tunneling No No No -Circular Undermining No No No -Wound/Ulcer Outcome Not Healed Not Healed Not Healed -Ulcer Cleansing Rinsed/ Rinsed/ Rinsed/ Irrigated with Irrigated with Irrigated with Saline Saline Saline -Foul Odor after Cleansing -Bioengineered Tissue No No -Bleeding Controlled with Pressure Pressure Pressure -Treatment Response Procedure Procedure Procedure Tolerated Well Tolerated Well Tolerated Well -Offloading -Debridement - Subq, 1st 20sq cm No No No #1 Right Superior Medial Knee -Time 13:26 13:20 13:25 -Correct Patient Yes Yes Yes -Correct Side, Site, Position Yes Yes Yes -Correct Procedure Yes Yes Yes -Procedure Performed Yes Yes Yes -Type of Procedure Debridement Debridement Debridement -Clinical Debridement Subcutaneous Subcutaneous Subcutaneous -Tissue Removed Subcutaneous Subcutaneous Subcutaneous -Post Debridement (cm) - Length 8.4 8.0 7.8 -Post Debridement (cm) - Width 1.0 1.0 0.9 -Post Debridement (cm) - Depth 0.5 0.5 0.3 -Total Square (Post) (cm) 8.40 8.00 7.02 -Area of Debridement (cm) - Length 8.4 8.0 7.8 -Area of Debridement (cm) - Width 1.0 1.0 0.9 -Total Square (Area) (cm) 8.40 8.00 7.02 -Tunneling No No No -Undermining/Tunneling No No No -Circular Undermining No No No -Wound/Ulcer Outcome Not Healed Not Healed Not Healed -Ulcer Cleansing Rinsed/ Rinsed/ Rinsed/ Irrigated with Irrigated with Irrigated with Saline Saline Saline -Foul Odor after Cleansing -Bioengineered Tissue No No No -Bleeding Controlled with Pressure Pressure Pressure,Silver Nitrate -Treatment Response Procedure Procedure Procedure Tolerated Well Tolerated Well Tolerated Well -Offloading -Debridement - Subq, 1st 20sq cm Yes Yes Yes -Debridement, SubQ, ea addt'l 20sq cm 1 or part thereof Pain Scale: 0-10 Numeric Is Patient Pain Free? Yes Yes Yes 06/28/24 07/05/24 13:33 13:26 Wound Center Nurse 2 5-right medial knee -Time 13:33 -Correct Patient Yes -Correct Side, Site, Position Yes -Correct Procedure Yes -Procedure Performed Yes -Type of Procedure Debridement -Clinical Debridement Subcutaneous -Tissue Removed Subcutaneous #4 RT MEDIAL KNEE -Correct Patient -Correct Side, Site, Position -Correct Procedure -Procedure Performed -Type of Procedure -Clinical Debridement -Tissue Removed #3 Right Lateral Knee -Time -Procedure Performed -Tunneling -Undermining/Tunneling -Circular Undermining -Wound/Ulcer Outcome #2 Right Inferior Medial Knee -Time 13:33 13:27 -Correct Patient Yes Yes -Correct Side, Site, Position Yes Yes -Correct Procedure Yes Yes -Procedure Performed Yes Yes -Type of Procedure Debridement Debridement -Clinical Debridement Subcutaneous Subcutaneous -Tissue Removed Subcutaneous Subcutaneous -Post Debridement (cm) - Length 4.0 3.5 -Post Debridement (cm) - Width 0.5 0.8 -Post Debridement (cm) - Depth 0.1 0.1 -Total Square (Post) (cm) 2.00 2.80 -Area of Debridement (cm) - Length 4.0 3.5 -Area of Debridement (cm) - Width 0.5 0.8 -Total Square (Area) (cm) 2.00 2.80 -Tunneling No No -Undermining/Tunneling No No -Circular Undermining No No -Wound/Ulcer Outcome Not Healed Not Healed -Ulcer Cleansing Rinsed/ Rinsed/ Irrigated with Irrigated with Saline Saline -Foul Odor after Cleansing No -Bioengineered Tissue No No -Bleeding Controlled with Pressure Pressure -Treatment Response Procedure Procedure Tolerated Well Tolerated Well -Offloading No -Debridement - Subq, 1st 20sq cm Yes No #1 Right Superior Medial Knee -Time 13:34 13:28 -Correct Patient Yes Yes -Correct Side, Site, Position Yes Yes -Correct Procedure Yes Yes -Procedure Performed Yes Yes -Type of Procedure Debridement Debridement -Clinical Debridement Subcutaneous Subcutaneous -Tissue Removed Subcutaneous Subcutaneous -Post Debridement (cm) - Length 7.5 7.8 -Post Debridement (cm) - Width 0.7 0.8 -Post Debridement (cm) - Depth 0.2 0.2 -Total Square (Post) (cm) 5.25 6.24 -Area of Debridement (cm) - Length 7.5 7.8 -Area of Debridement (cm) - Width 0.7 0.8 -Total Square (Area) (cm) 5.25 6.24 -Tunneling No No -Undermining/Tunneling No No -Circular Undermining No No -Wound/Ulcer Outcome Not Healed Not Healed -Ulcer Cleansing Rinsed/ Rinsed/ Irrigated with Irrigated with Saline Saline -Foul Odor after Cleansing No -Bioengineered Tissue No No -Bleeding Controlled with Pressure Pressure -Treatment Response Procedure Procedure Tolerated Well Tolerated Well -Offloading No -Debridement - Subq, 1st 20sq cm No Yes -Debridement, SubQ, ea addt'l 20sq cm or part thereof Pain Scale: 0-10 Numeric Is Patient Pain Free? Yes Yes WC - Nurse 3 - General Ulcer D/C NN Start: 06/07/24 13:15 Freq: Status: Active Protocol: Activity Type Activity Date Activity User E-sign Co-sign Detail Recorded Client Recorded Date Recorded By Document 06/07/24 13:47 RB [id number] 06/07/24 13:49 RB Document 06/14/24 13:34 RB [id number] 06/14/24 13:35 RB Document 06/21/24 13:45 JF [id number] 06/21/24 13:47 JF Document 06/28/24 14:04 RB [id number] 06/28/24 14:04 RB Document 07/05/24 13:37 RB [id number] 07/05/24 13:38 RB 06/07/24 06/14/24 06/21/24 13:47 13:34 13:45 Wound Care Center Nurse 3 5-right medial knee -Ulcer Cleansing Rinsed/ Irrigated with Saline -Other Dressing santyl ointment -Primary Dressing Covered/Secured with Dry Gauze & Roll Gauze, Secured with Tape #3 Right Lateral Knee -Ulcer Cleansing Wound Cleanser -Other Dressing hydrogel/abd pad -Primary Dressing Covered/Secured with Dry Gauze,Dry Gauze & Roll Gauze,Secured with Tape #2 Right Inferior Medial Knee -Ulcer Cleansing Wound Cleanser Wound Cleanser Rinsed/ Irrigated with Saline -Foul Odor after Cleansing No -Other Dressing hydrogel/ abd SANTYL/ABD PAD santyl ointment pad -Primary Dressing Covered/Secured with Dry Gauze & Dry Gauze & Dry Gauze & Roll Gauze, Roll Gauze, Roll Gauze, Secured with Secured with Secured with Tape Tape Tape #1 Right Superior Medial Knee -Ulcer Cleansing Wound Cleanser Wound Cleanser Rinsed/ Irrigated with Saline -Foul Odor after Cleansing No -Other Dressing hydrogel SANTYL santyl ointment -Primary Dressing Covered/Secured with Dry Gauze & Dry Gauze & Dry Gauze & Roll Gauze, Roll Gauze, Roll Gauze, Secured with Secured with Secured with Tape Tape Tape right knee -Tubular Bandage Double Layer -Size of Tubigrip Used Size E -Size E ($) 2 -Size F ($) -Other earl EARL Treatment Response Procedure Procedure Tolerated Well Tolerated Well Pain Scale: 0-10 Numeric Is Patient Pain Free? Yes Yes Yes Teaching: Wound Center Dressing Your Wound -Person Taught Patient -Teaching Method Discussion, Demonstration -Response to teaching Verbalize Understanding WC - Visit Discharge Discharge Condition Stable Stable Stable Ambulatory Status Ambulatory Ambulatory Ambulatory Transportation Private Auto Private Auto Private Auto Medication Reconcilliation completed & No No Yes provided to patient/care provider Clinical Summary of Care Provided Yes Yes Yes 06/28/24 07/05/24 14:04 13:37 Wound Care Center Nurse 3 5-right medial knee -Ulcer Cleansing -Other Dressing -Primary Dressing Covered/Secured with #3 Right Lateral Knee -Ulcer Cleansing -Other Dressing -Primary Dressing Covered/Secured with #2 Right Inferior Medial Knee -Ulcer Cleansing -Foul Odor after Cleansing -Other Dressing SANTYL HYDROGEL -Primary Dressing Covered/Secured with Dry Gauze,Dry Dry Gauze,Dry Gauze & Roll Gauze & Roll Gauze,Secured Gauze,Secured with Tape with Tape #1 Right Superior Medial Knee -Ulcer Cleansing -Foul Odor after Cleansing -Other Dressing SANTYL HYDROGEL -Primary Dressing Covered/Secured with Dry Gauze,Dry Dry Gauze,Dry Gauze & Roll Gauze & Roll Gauze,Secured Gauze,Secured with Tape with Tape right knee -Tubular Bandage Single Layer Single Layer -Size of Tubigrip Used Size E Size F -Size E ($) 1 -Size F ($) 1 -Other Treatment Response Procedure Tolerated Well Pain Scale: 0-10 Numeric Is Patient Pain Free? Yes Yes Teaching: Wound Center Dressing Your Wound -Person Taught -Teaching Method -Response to teaching WC - Visit Discharge Discharge Condition Stable Stable Ambulatory Status Ambulatory Ambulatory Transportation Private Auto Private Auto Medication Reconcilliation completed & No No provided to patient/care provider Clinical Summary of Care Provided Yes Yes Charges/Coding Procedures Integumentary [id number]: [id number] Kay subq tissue 20 sq cm/< Assessment/Plan Assessment/Plan (1) 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 exposed: CODE(S): L97.912 - Non-pressure chronic ulcer of unspecified part of right lower leg with fat layer exposed (2) Traumatic open wound of right lower leg with delayed healing: CODE(S): S81.801D - Unspecified open wound, right lower leg, subsequent encounter (3) Surgical wound dehiscence: CODE(S): T81.31XA - Disruption of external operation (surgical) wound, not elsewhere classified, initial encounter QUALIFIERS: Encounter type: subsequent encounter Qualified Code(s): T81.31XD - Disruption of external operation (surgical) wound, not elsewhere classified, subsequent encounter (4) Post-thrombotic syndrome: CODE(S): I87.009 - Postthrombotic syndrome without complications of unspecified extremity (5) History of DVT of lower extremity: CODE(S): Z86.718 - Personal history of other venous thrombosis and embolism (6) History of blood clots: CODE(S): Z86.718 - Personal history of other venous thrombosis and embolism (7) Rheumatoid arthritis: CODE(S): M06.9 - Rheumatoid arthritis, unspecified (8) High cholesterol: CODE(S): E78.00 - Pure hypercholesterolemia, unspecified (9) Osteoporosis: CODE(S): M81.0 - Age-related osteoporosis without current pathological fracture (10) Osteoarthritis: CODE(S): M19.90 - Unspecified osteoarthritis, unspecified site (11) Lumbar radiculopathy: CODE(S): M54.16 - Radiculopathy, lumbar region (12) History of dilatation and curettage: CODE(S): Z98.890 - Other specified postprocedural states (13) Hx of foot surgery: CODE(S): Z98.890 - Other specified postprocedural states (14) History of carpal tunnel surgery: CODE(S): Z98.890 - Other specified postprocedural states (15) History of uterine suspension procedure: CODE(S): Z98.890 - Other specified postprocedural states; Z87.448 - Personal history of other diseases of urinary system (16) Hx of cataract surgery: CODE(S): Z98.49 - Cataract extraction status, unspecified eye (17) Migraines: CODE(S): G43.909 - Migraine, unspecified, not intractable, without status migrainosus (18) Rheumatoid arthritis: CODE(S): M06.9 - Rheumatoid arthritis, unspecified (19) GERD (gastroesophageal reflux disease): CODE(S): K21.9 - Gastro-esophageal reflux disease without esophagitis (20) Osteopenia: CODE(S): M85.80 - Other specified disorders of bone density and structure, unspecified site (21) Restless leg syndrome: CODE(S): G25.81 - Restless legs syndrome (22) Hypertension: CODE(S): I10 - Essential (primary) hypertension PLAN: Plan The patient is an 79-year-old female who sustained trauma to the right lower extremity on April 26, 2024. As a result, she sustained a large laceration to the right medial leg, at knee and proximal calf level, for which suture closure was performed in the Emergency Department at [facility]. She also sustained an open wound on the right lateral knee. Other injuries also occurred, for which other physicians are involved. These injuries include a right pisiform fracture which is nondisplaced, as well as a right rib fracture. She also sustained other bruises and contusions. Sutures were removed from the right medial leg laceration in the ER approximately 2 weeks following placement. Immediately upon removal, dehiscence of the laceration was noted. The traumatic wound on the right lateral knee remains completely healed and epithelialized. Debridement has been performed relative to the wounds of the right medial leg. These wounds have demonstrated improvement, with increasing areas of pink, healthy granulation tissue, and a decrease in overall size. There is a small amount of bioburden and nonviable tissue. We are to transition to the use of collagen hydrogel, which will be applied by the patient topically on a daily basis. The patient has been instructed in the appropriate means of application. Optilock absorbent dressings will also be continued as needed, though the patient indicates that the amount of drainage has decreased to almost nothing. To minimize swelling, the patient has been advised to elevate her lower extremity as much as possible. Elevation is to be to heart level, or higher. She is to continue sleeping on a flat mattress at night. Activity has been encouraged. Prolonged idle sitting has been discouraged. Tubigrip's have also been dispensed for compression on a daily basis. The patient admits to poor compliance with measures to minimize swelling. Nutritional optimization has been encouraged. The patient is to return in 2 weeks for reassessment, as prior commitments prevent her from returning in 1 week. Total time: 24 minutes
--- NOTE | 2024-07-07 10:17 | WC ---
PHOTO 07/05/24 [email or web address]
== END 2024-07-07 23:59 | disposition home or self-care (01) ==
LOC: WC 13:00
PROVIDERS: PCP Internal Medicine; Referring Provider Surgery; Visit Provider Surgery
DX: T81.33XA Disruption of traumatic injury wound repair, initial encounter (principal); L97.812 Non-pressure chronic ulcer of other part of right lower leg with fat layer exposed; M06.9 Rheumatoid arthritis, unspecified; K21.9 Gastro-esophageal reflux disease without esophagitis; M54.16 Radiculopathy, lumbar region; G43.909 Migraine, unspecified, not intractable, without status migrainosus; M81.0 Age-related osteoporosis without current pathological fracture; Y84.8 Other medical procedures as the cause of abnormal reaction of the patient, or of later complication, without mention of misadventure at the time of the procedure; G25.81 Restless legs syndrome; I10 Essential (primary) hypertension; S62.164D Nondisplaced fracture of pisiform, right wrist, subsequent encounter for fracture with routine healing; S81.811S Laceration without foreign body, right lower leg, sequela; S81.001S Unspecified open wound, right knee, sequela; V48 Car occupant injured in noncollision transport accident; E78.00 Pure hypercholesterolemia, unspecified; Z79.83 Long term (current) use of bisphosphonates; Z79.891 Long term (current) use of opiate analgesic; Z86.718 Personal history of other venous thrombosis and embolism; Z87.891 Personal history of nicotine dependence
CPT/HCPCS: 11042; 11045

== ENCOUNTER 2024-07-26 13:00 | Outpatient (RCR) | payer MEDICARE, SELFPAY ==
[2024-07-08 00:15] VITALS: BP 157/59; PULSE 77; RESP 18; TEMP 36.1; BMI 30.9
[2024-07-19 13:11] VITALS: BP 146/60; PULSE 81; RESP 18; TEMP 36.6; BMI 30.9
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
[2024-07-26 13:08] VITALS: BP 137/64; PULSE 84; RESP 18; TEMP 36.5; BMI 30.9
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
== END 2024-08-06 23:59 | disposition home or self-care (01) ==
LOC: WC 13:00
PROVIDERS: PCP Internal Medicine; Referring Provider Surgery; Visit Provider Surgery
DX: T81.33XA Disruption of traumatic injury wound repair, initial encounter (principal); L97.812 Non-pressure chronic ulcer of other part of right lower leg with fat layer exposed; M06.9 Rheumatoid arthritis, unspecified; Y84.8 Other medical procedures as the cause of abnormal reaction of the patient, or of later complication, without mention of misadventure at the time of the procedure; K21.9 Gastro-esophageal reflux disease without esophagitis; S81.811S Laceration without foreign body, right lower leg, sequela; M54.16 Radiculopathy, lumbar region; I10 Essential (primary) hypertension; E78.00 Pure hypercholesterolemia, unspecified; G43.909 Migraine, unspecified, not intractable, without status migrainosus; G25.81 Restless legs syndrome; M81.0 Age-related osteoporosis without current pathological fracture; Z79.83 Long term (current) use of bisphosphonates; Z86.718 Personal history of other venous thrombosis and embolism; Z87.891 Personal history of nicotine dependence
CPT/HCPCS: 11042; 99213; G0463

== ENCOUNTER 2024-09-06 10:00 | Outpatient (RCR) | payer MEDICARE, SELFPAY ==
[2024-08-07 00:15] VITALS: BP 157/59; PULSE 77; RESP 18; TEMP 36.1; BMI 30.9
[2024-08-09 13:18] VITALS: BP 149/80; PULSE 76; RESP 18; TEMP 36.3; BMI 30.9
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
--- NOTE | 2024-08-12 11:59 | WC ---
PHOTO 08/09/24 RIGHT INF MEDIAL KNEE
--- NOTE | 2024-08-12 12:31 | WC ---
PHOTO 08/09/24 RIGHT SUP MEDIAL KNEE
[2024-08-23 13:05] VITALS: BP 160/64; PULSE 93; RESP 16; TEMP 36.5; BMI 30.9
--- NOTE | 2024-08-24 14:08 | WC ---
PHOTO 08/23/24 RIGHT KNEE
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
[2024-09-06 10:05] VITALS: BP 153/78; PULSE 80; RESP 18; TEMP 36.7; BMI 30.9
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
== END 2024-09-06 23:59 | disposition home or self-care (01) ==
LOC: WC 10:00
PROVIDERS: PCP Internal Medicine; Referring Provider Surgery; Visit Provider Surgery
DX: L97.912 Non-pressure chronic ulcer of unspecified part of right lower leg with fat layer exposed (principal); M06.9 Rheumatoid arthritis, unspecified; T81.33XA Disruption of traumatic injury wound repair, initial encounter; S81.811S Laceration without foreign body, right lower leg, sequela; K21.9 Gastro-esophageal reflux disease without esophagitis; I87.009 Postthrombotic syndrome without complications of unspecified extremity; M81.0 Age-related osteoporosis without current pathological fracture; G43.909 Migraine, unspecified, not intractable, without status migrainosus; E78.00 Pure hypercholesterolemia, unspecified; M19.90 Unspecified osteoarthritis, unspecified site; M54.16 Radiculopathy, lumbar region; I10 Essential (primary) hypertension; G25.81 Restless legs syndrome; M85.80 Other specified disorders of bone density and structure, unspecified site; Z79.891 Long term (current) use of opiate analgesic; Z79.83 Long term (current) use of bisphosphonates; Z86.718 Personal history of other venous thrombosis and embolism; Z87.891 Personal history of nicotine dependence
CPT/HCPCS: 11042; 99213; G0463

== ENCOUNTER 2024-09-27 13:05 | Outpatient (RCR) | payer MEDICARE, SELFPAY ==
[2024-09-07 00:11] VITALS: BP 157/59; PULSE 77; RESP 18; TEMP 36.1; BMI 30.9
[2024-09-27 13:10] VITALS: BP 136/68; PULSE 84; RESP 18; TEMP 36.7; BMI 30.9
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
--- NOTE | 2024-09-29 09:47 | WC ---
PHOTO 09/27/24 RIGHT LEG
== END 2024-10-07 23:59 | disposition home or self-care (01) ==
LOC: WC 13:05
PROVIDERS: PCP Internal Medicine; Referring Provider Surgery; Visit Provider Surgery
DX: L97.912 Non-pressure chronic ulcer of unspecified part of right lower leg with fat layer exposed (principal); M06.9 Rheumatoid arthritis, unspecified; S81.811S Laceration without foreign body, right lower leg, sequela; I10 Essential (primary) hypertension; E78.00 Pure hypercholesterolemia, unspecified; T81.33XS Disruption of traumatic injury wound repair, sequela; V48 Car occupant injured in noncollision transport accident; G25.81 Restless legs syndrome; M54.16 Radiculopathy, lumbar region; M81.0 Age-related osteoporosis without current pathological fracture; M85.80 Other specified disorders of bone density and structure, unspecified site; K21.9 Gastro-esophageal reflux disease without esophagitis; G43.909 Migraine, unspecified, not intractable, without status migrainosus; M19.90 Unspecified osteoarthritis, unspecified site; Z79.83 Long term (current) use of bisphosphonates; Z79.899 Other long term (current) drug therapy; Z86.718 Personal history of other venous thrombosis and embolism; Z87.891 Personal history of nicotine dependence
CPT/HCPCS: 11042

== ENCOUNTER 2024-10-11 12:57 | Outpatient (RCR) | payer MEDICARE, SELFPAY ==
[2024-10-08 00:34] VITALS: BP 136/68; PULSE 84; RESP 18; TEMP 36.7; BMI 30.9
[2024-10-11 13:12] VITALS: BP 165/65; PULSE 74; RESP 18; TEMP 36.6; BMI 30.9
--- NOTE | 2024-10-12 12:16 | WC ---
PHOTO 10/11/24
--- NOTE | 2024-10-12 12:23 | WC ---
PHOTO 10/11/24 RIGHT INF MED KNEE
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
== END 2024-11-04 10:54 | disposition home or self-care (01) ==
LOC: WC 12:57
PROVIDERS: PCP Internal Medicine; Referring Provider Surgery; Visit Provider Surgery
DX: L97.912 Non-pressure chronic ulcer of unspecified part of right lower leg with fat layer exposed (principal); M06.9 Rheumatoid arthritis, unspecified; T81.33XS Disruption of traumatic injury wound repair, sequela; S81.811S Laceration without foreign body, right lower leg, sequela; V48 Car occupant injured in noncollision transport accident; K21.9 Gastro-esophageal reflux disease without esophagitis; G43.909 Migraine, unspecified, not intractable, without status migrainosus; M85.80 Other specified disorders of bone density and structure, unspecified site; M54.16 Radiculopathy, lumbar region; I87.009 Postthrombotic syndrome without complications of unspecified extremity; E78.00 Pure hypercholesterolemia, unspecified; I10 Essential (primary) hypertension; G25.81 Restless legs syndrome; M81.0 Age-related osteoporosis without current pathological fracture; Z79.899 Other long term (current) drug therapy; Z87.891 Personal history of nicotine dependence; Z86.718 Personal history of other venous thrombosis and embolism
CPT/HCPCS: 99213; G0463

== ENCOUNTER → 2024-10-12 | Outpatient (CLI) | payer MEDICARE, SELFPAY ==
[2024-10-12 16:05] LABS: Absolute Lymphocyte Count 1.25 X10^3/uL (0.83-4.51); Absolute Neutrophil Count 3.1 X10^3/uL (2.0-7.7); Basophil# 0.02 X10^3/uL; Basophil% 0.4 % (0-1); Eosinophil# 0.15 X10^3/uL; Hematocrit 41.1 % (37-47); Hemoglobin 12.7 g/dL (12.0-15.0); Lymphocyte # 1.25 X10^3/ul (0.83-4.51); Lymphocyte % 24.8 % (19-41); Mean Corp Hgb Conc 30.9 g/dL (32-36); Mean Corpuscular Volume 90.7 fL (81-99); Mean Platelet Vol. 11.5 fl (6.2-12.0); Monocyte# 0.47 X10^3/uL; Monocyte% 9.3 % (0-10); NRBC Flagged by Analyzer 0 % (0-5); Neutrophil # 3.14 X10^3/uL (2.7-7.7); Neutrophil % 62.3 % (47-70); Platelet Count 195 K/mm3 (150-450); RBC Distribution Width CV 14.4 % (11.6-14.6); RBC Distribution Width SD 47.9 fl (35.1-43.9); Red Blood Count 4.53 M/mm3 (4.2-5.4)
[2024-10-12 16:46] LABS: ALB/GLOB Ratio 1.1 RATIO (0.9-2.4); AST(SGOT) 25 U/L (15-37); Alanine Aminotransfer ALT/SGPT 26 U/L (13-56); Albumin, Serum 3.8 g/dL (3.2-5.0); Alkaline Phosphatase 62 U/L (45-117); Anion Gap 6 (5-15); BUN 21 mg/dL (7-18); BUN/Creat Ratio 18.3 RATIO (10-20); Calcium,Total 8.9 mg/dL (8.5-10.1); Chloride 109 mmol/L (98-107); Creatinine, Serum 1.15 mg/dL (0.55-1.02); EST Glomerular Filtration Rate 48 mL/min (>60); Est Glom Filt Rate - Afr Amer 58 mL/min (>60); Globulin 3.4 g/dL (2.2-4.2); Glucose 81 mg/dL (74-106); Potassium 4.3 mmol/L (3.5-5.1); Protein, Total 7.2 g/dL (6.4-8.2); Sodium Level 139 mmol/L (136-145)
== END | disposition home or self-care (01) ==
LOC: BIMLAB 11:52
PROVIDERS: PCP Internal Medicine; Referring Provider Internal Medicine; Visit Provider Internal Medicine
DX: I10 Essential (primary) hypertension (principal); K21.9 Gastro-esophageal reflux disease without esophagitis
CPT/HCPCS: 36415; 80053; 85025

== ENCOUNTER → 2024-10-28 | Outpatient (CLI) | payer MEDICARE, SELFPAY ==
--- NOTE | 2024-10-28 12:33 | STRESSREP_ITS ---
Stress Test Report Lexiscan pharmacological myocardial perfusion stress test. Indication; 79-year-old patient with history of dyspnea on exertion. Has multiple medical comorbidities with CKD, DVT, GERD. Lower extremity cellulitis and wound. Also patient had nuclear Lexiscan study in February 2023 which was normal. Stress protocol: Resting EKG demonstrates. Normal sinus rhythm. 0.4 mg of regadenoson was infused per usual protocol followed by rapid intravenous saline flush injection continuous EKG monitoring was performed. The maximum heart rate attained was 85 bpm which was 60% of maximum predicted heart . Stress EKG showed[, no significant change from the resting EKG, with maximum heart rate of 85 bpm. Arrhythmia: No arrhythmia demonstrated Symptoms: Patient had no symptoms of chest pain Blood pressure at rest: 140/78 mmHg, blood pressure at the end of stress: 140/78 mmHg Myocardial perfusion protocol. 11.7 mCi ]of Technetium 99m Sestamibi was injected at rest. [ 0.4 mg ]of Regadenoson was infused per usual protocol peak infusion 34.2 mCi ]of Technetium 99m sestamibi was injected. Stress images were obtained stress and rest images were reconstructed and compared in the short axis vertical and horizontal long axis. Gated images were also obtained Perfusion SPECT analysis: Review of the images demonstrate normal uptake of sestamibi at rest, post stress images demonstrate similar uptake of sestamibi to the resting images, homogeneous tracer uptake With no evidence of reversible myocardial ischemia. Gated SPECT analysis: The gated ejection fraction is 75% LV. Wall motion showed hyperdynamic left ventricle. Conclusion: Negative Lexiscan sestamibi myocardial perfusion study for reversible myocardial ischemia Hyperdynamic left ventricle. Reji Goldstein MD,FACC,[facility] commercial real estate attorney
== END | disposition home or self-care (01) ==
LOC: CVS 06:22
PROVIDERS: PCP Internal Medicine; Referring Provider Internal Medicine; Visit Provider Internal Medicine
DX: R06.09 Other forms of dyspnea (principal); I10 Essential (primary) hypertension
CPT/HCPCS: 78452; 93017; A9500; A4216; J2785

== ENCOUNTER → 2024-11-01 | Outpatient (CLI) | payer MEDICARE, SELFPAY ==
[2024-11-01 13:05] LABS: Absolute Lymphocyte Count 1.22 X10^3/uL (0.83-4.51); Absolute Neutrophil Count 2.9 X10^3/uL (2.0-7.7); Basophil# 0.03 X10^3/uL; Basophil% 0.6 % (0-1); Eosinophil# 0.11 X10^3/uL; Eosinophils% 2.4 % (0-5); Hematocrit 37.4 % (37-47); Hemoglobin 11.8 g/dL (12.0-15.0); Lymphocyte # 1.22 X10^3/ul (0.83-4.51); Lymphocyte % 26.1 % (19-41); Mean Corp Hgb Conc 31.6 g/dL (32-36); Mean Corpuscular Hgb 28.2 pg (27.0-32.0); Mean Corpuscular Volume 89.3 fL (81-99); Mean Platelet Vol. 11.7 fl (6.2-12.0); Monocyte# 0.41 X10^3/uL; Monocyte% 8.8 % (0-10); NRBC Flagged by Analyzer 0 % (0-5); Neutrophil # 2.89 X10^3/uL (2.7-7.7); Neutrophil % 61.9 % (47-70); Platelet Count 172 K/mm3 (150-450); RBC Distribution Width CV 13.9 % (11.6-14.6); RBC Distribution Width SD 45.4 fl (35.1-43.9); Red Blood Count 4.19 M/mm3 (4.2-5.4); White Blood Count 4.7 K/mm3 (4.4-11.0)
[2024-11-02 12:07] LABS: ALB/GLOB Ratio 1.6 RATIO (0.9-2.4); AST(SGOT) 36 U/L (<=31); Alanine Aminotransfer ALT/SGPT 25 U/L (<=34); Alkaline Phosphatase 62 U/L (35-104); Anion Gap 14 (5-15); BUN 24 mg/dL (4-19); BUN/Creat Ratio 24.1 RATIO (10-20); Calcium 9.1 mg/dL (7.6-11.0); Carbon Dioxide 19.9 mmol/L (22.0-29.0); Chloride 107 mmol/L (96-108); EST Glomerular Filtration Rate 58 (>60); Globulin 2.4 g/dL (2.2-4.2); Glucose 80 mg/dL (70-99); Potassium 4.4 mmol/L (3.3-5.1); Protein, Total 6.4 g/dL (5.9-8.4); Sodium Level 141 mmol/L (133-145); Total Bilirubin 0.28 mg/dL (0.00-1.30)
== END | disposition home or self-care (01) ==
LOC: MTLAB 09:13
PROVIDERS: PCP Internal Medicine; Referring Provider Internal Medicine Rheumatology; Visit Provider Internal Medicine Rheumatology
DX: M05.79 Rheumatoid arthritis with rheumatoid factor of multiple sites without organ or systems involvement (principal); M79.7 Fibromyalgia; Z79.899 Other long term (current) drug therapy
CPT/HCPCS: 36415; 80053; 85025

== ENCOUNTER → 2024-11-08 | Outpatient (CLI) | payer MEDICARE, SELFPAY ==
--- NOTE | 2024-11-08 07:49 | BD_ITS ---
PROCEDURE: DEXA BONE DENSITY STUDY REASON FOR EXAM: F, age 79 y/o . TECHNIQUE: DEXA scan of the lumbar spine and bilateral hips. COMPARISON: None. FINDINGS: T-SCORES Lumbar spine: -2.0 (BMD 0.836) Left hip: Negative 1.8 (BMD 716) Right hip: -1.8 (BMD 0.728) Right hip FRAX* Results: 10 Year Probability of Fracture: Hip Fracture(1): 7.8% Major Osteoporotic Fracture(2): 22% Left hip FRAX* Results: 10 Year Probability of Fracture: Hip Fracture(1): 6.8% Major Osteoporotic Fracture(2): 26% *FRAX is a trademark of the [employer]'s [place] for Metabolic Bone Disease, World Health Organization (WHO) Collaborating [place]. 1-The 10-year probability of fracture may be lower than reported if the patient has received treatment. 2-Major Osteoporotic Fracture: Clinical Spine, Forearm, Hip or Shoulder. The T-scores are also available for review on the [facility] PACS or by accessing the [facility] electronic medical record. BD/Dexa Bone Density Study IMPRESSION: Osteopenia of the lumbar spine and bilateral hips. Reading Location: [facility]
--- NOTE | 2024-11-08 08:08 | EKG12_ITS ---
Test Reason : DYSPNEA, WEAKNESS Blood Pressure : */* mmHG Vent. Rate : 84 BPM Atrial Rate : 84 BPM P-R Int : 180 ms QRS Dur : 92 ms QT Int : 392 ms P-R-T Axes : 52 40 39 degrees QTcB Int : 463 ms Normal sinus rhythm Normal ECG Confirmed by Jeronimo Graham ([id number]), writer editor JUSTIN HAQUE ([id number]) on 11/08/2024 10:38:41 AM Referred By: Gabriel Philippe Confirmed By: Jeronimo Graham
== END | disposition home or self-care (01) ==
LOC: OPBD 07:32
PROVIDERS: PCP Internal Medicine; Referring Provider Internal Medicine; Visit Provider Internal Medicine
DX: M85.80 Other specified disorders of bone density and structure, unspecified site (principal); Z78.0 Asymptomatic menopausal state; R06.09 Other forms of dyspnea; R06.02 Shortness of breath
CPT/HCPCS: 77080; 93005

== ENCOUNTER → 2024-11-22 | Outpatient (CLI) | payer MEDICARE, SELFPAY | END | disposition home or self-care (01) | LOC: PSN 06:34 | PROVIDERS: PCP Internal Medicine; Referring Provider Internal Medicine; Visit Provider Internal Medicine | DX: R06.02 Shortness of breath (principal) | CPT/HCPCS: 94010; 94060; 94726; 94729 ==

== ENCOUNTER → 2024-12-08 | Outpatient (CLI) | payer MEDICARE, SELFPAY ==
[2024-12-08 12:15] LABS: Cholesterol 183 mg/dL (<=200); High Density Lipoprotein 61 mg/dL; Low Density Lipoprotein Calc. 110 mg/dL; Triglycerides 61 mg/dL; Very Low Density Lipoprotein 12 mg/dL (5-40)
== END | disposition home or self-care (01) ==
LOC: LAB 10:20
PROVIDERS: PCP Internal Medicine; Referring Provider Internal Medicine Cardiovascular Disease; Visit Provider Internal Medicine Cardiovascular Disease
DX: E78.00 Pure hypercholesterolemia, unspecified (principal)
CPT/HCPCS: 36415; 80061

== ENCOUNTER → 2024-12-20 | Outpatient (CLI) | payer MEDICARE, SELFPAY ==
--- NOTE | 2024-12-20 13:50 | ECHOD_ITS ---
Reason For Study Reason For Study: Chest Pain Procedure This was a 2D Doppler, Color Flow transthoracic echocardiogram. Exam performed in department. Left Ventricle Normal size and thickness. The LV systolic function is normal. EF is 65 %. Normal diastololic function. Right Ventricle Normal right ventricle. Atria The left atrium is mildly enlarged. Normal right atrium. Mitral Valve Mild focal mitral valve calcification. Trivial mitral valve insufficiency. Tricuspid Valve Mild tricuspid valve insufficiency. Normal pulmonary artery pressure. Aortic Valve Trisinus/trileaflet aortic valve. Pulmonic Valve The pulmonic valve is not well visualized. Great Vessels Normal sized aortic root. Pericardium/Pleural No pericardial effusion. MMode/2D Measurements & Calculations LVIDd: 4.5 cm IVSd: 0.99 cm Ao root diam: 3.4 cm LVIDs: 2.5 cm LVPWd: 1.1 cm RVDd: 4.3 cm FS: 44.9 % LAV(MOD-bp): 61.9 ml LVAd ap4: 30.7 cm2 SV(MOD-sp4): 61.4 ml LAV(MOD-bp) Indexed: 32.7 ml/m2 LVLd ap4: 7.8 cm SI(MOD-sp4): 32.4 ml/m2 LAV(MOD-sp2): 64.2 ml EDV(MOD-sp4): 95.0 ml LAV(MOD-sp4): 57.6 ml EDV(sp4-el): 103.1 ml LVAs ap4: 16.2 cm2 LVLs ap4: 6.5 cm ESV(MOD-sp4): 33.6 ml ESV(sp4-el): 34.0 ml EF(MOD-sp4): 64.6 % EF(sp4-el): 67.0 % SV(sp4-el): 69.1 ml LA A4 area: 20.5 cm2 LA dimension(2D): 3.4 cm RA A4 area: 15.7 cm2 TAPSE: 1.8 cm Time Measurements MV dec time: 0.24 sec Doppler Measurements & Calculations MV E max rafael: 79.6 cm/sec Lat Peak E' Rafael: 12.3 cm/sec Med Peak E' Rafael: 8.3 cm/sec MV A max rafael: 88.2 cm/sec E/E' lat: 6.5 E/E' med: 9.6 MV E/A: 0.90 MV V2 max: 98.9 cm/sec MV P1/2t max rafael: 93.3 cm/sec Ao V2 max: 151.4 cm/sec MV max P.9 mmHg MV P1/2t: 87.5 msec Ao max P.2 mmHg MV V2 mean: 54.9 cm/sec Ao V2 mean: 106.1 cm/sec MV mean P.4 mmHg MV dec slope: 312.1 cm/sec2 Ao mean P.1 mmHg MV V2 VTI: 41.7 cm MVA(P1/2t): 2.5 cm2 Ao V2 VTI: 38.5 cm AV (velocity ratio): 0.77 LV V1 max: 120.1 cm/sec MR max rafael: 509.0 cm/sec PA V2 max: 93.4 cm/sec LV V1 max P.8 mmHg MR max P.6 mmHg LV V1 mean P.0 mmHg LV V1 mean: 81.2 cm/sec LV V1 VTI: 29.6 cm TR max rafael: 244.0 cm/sec TR max P.8 mmHg ECHO/Echo Complete Interpretation Summary The LV systolic function is normal. EF is 65 %. The left atrium is mildly enlarged. Mild focal mitral valve calcification. Mild tricuspid valve insufficiency. Ordering Physician: Hadley Jimenez Referring Physician: Gabriel Philippe Performed By: David Phan RCS
== END | disposition home or self-care (01) ==
LOC: CVS 13:49
PROVIDERS: PCP Internal Medicine; Referring Provider Internal Medicine Cardiovascular Disease; Visit Provider Internal Medicine Cardiovascular Disease
DX: R06.02 Shortness of breath (principal); R07.9 Chest pain, unspecified; I20.9 Angina pectoris, unspecified
CPT/HCPCS: 93306

== ENCOUNTER → 2025-01-11 | Outpatient (CLI) | payer MEDICARE, SELFPAY ==
[2025-01-11 16:09] LABS: Anion Gap 10 (5-15); BUN 24 mg/dL (4-19); Calcium,Total 9.2 mg/dL (7.6-11.0); Carbon Dioxide 20.3 mmol/L (21.0-32.0); Chloride 109 mmol/L (98-108); Cholesterol 161 mg/dL (<=200); Creatinine, Serum 1.09 mg/dL (0.70-1.20); EST Glomerular Filtration Rate 51 (>60); Glucose 89 mg/dL (70-99); High Density Lipoprotein 51 mg/dL; Low Density Lipoprotein Calc. 98 mg/dL; Potassium 4.2 mmol/L (3.3-5.1); Sodium Level 139 mmol/L (133-145); Triglycerides 63 mg/dL; Very Low Density Lipoprotein 13 mg/dL (5-40); cholesterol:hdl ratio screen 3.18
[2025-01-11 16:13] LABS: Vitamin D,25 Hydroxy 15.3 ng/mL (30-100)
[2025-01-11 17:21] LABS: Microalbumin,Random Urine < 12.0 mg/L (NO RANGE EST.); Microalbumin:Creatinine Ratio UNABLE TO CALCULATE mg/g CRE
== END | disposition home or self-care (01) ==
LOC: BIMLAB 14:01
PROVIDERS: PCP Internal Medicine; Referring Provider Internal Medicine; Visit Provider Internal Medicine
DX: I12.9 Hypertensive chronic kidney disease with stage 1 through stage 4 chronic kidney disease, or unspecified chronic kidney disease (principal); N18.30 Chronic kidney disease, stage 3 unspecified; M81.0 Age-related osteoporosis without current pathological fracture
CPT/HCPCS: 36415; 80048; 80061; 82043; 82306; 82570

== ENCOUNTER 2025-01-20 12:09 | Outpatient (CLI) | payer MEDICARE, SELFPAY ==
[2025-01-20 12:52] VITALS: BP 148/79; PULSE 65; RESP 16; O2SAT 100; BMI 30.9
--- NOTE | 2025-01-20 13:14 | CT_ITS ---
PROCEDURE: LIMITED CHEST CT CARDIAC ONLY REASON FOR EXAM: CHEST PAIN/ANGINA PECTORIS TECHNIQUE: Prone and supine chest CT without contrast, high resolution CT (HRCT) protocol. Coronal and Sagittal reconstruction series were provided. One or more dose reduction techniques were used (e.g., Automated exposure control, adjustment of the mA and/or kV according to patient size, use of iterative reconstruction technique). Dose report: CTDI volume: mGy 54.12. DLP: 1438.76 mGy COMPARISON: None FINDINGS: Hardware: None Lymph nodes: Small mediastinal lymph nodes. Heart and Vasculature: The heart is nonenlarged. Atherosclerotic calcifications of the thoracic aorta. Thoracic aorta and pulmonary arteries have normal contours; noncontrast technique limits evaluation. Coronary Artery Calcifications: Present Lungs and Airways: Mild increased markings at the lung bases suggestive of either linear atelectasis and/or scarring. Pleura: Unremarkable Upper Abdomen: Unremarkable Bones: Degenerative changes of the thoracic spine. CT/Limited Chest CT Cardiac Only IMPRESSION: Coronary artery calcification (CAC) is is present Reading Location: [id number]
[2025-01-20 13:18] VITALS: PULSE 67
[2025-01-20] MEDS: Nitroglycerin SL (ED/IMG/CATH) 0.4 MG TABLET SL (13:18)
[2025-01-20 13:24] VITALS: BP 145/79; PULSE 77; RESP 18; O2SAT 94
--- NOTE | 2025-01-21 09:30 | CCTA.WCONT ---
CCTA w/Cont Coronary Arteries Date of Study:: 01/20/25 Chest pain Coronary Calcium Scoring: High-resolution Computed Tomographic imaging of the chest was performed on [01/20/2025], with particular attention paid to the coronary arteries. Intravenous contrast agent was administered per protocol and images reconstructed and displayed. LEFT MAIN CORONARY ARTERY: Arises from the left coronary cusp and appears to have no significant stenosis and bifurcates the left anterior descending artery and left circumflex artery [] LEFT ANTERIOR DESCENDING CORONARY ARTERY: Medium size vessel with a focal area of calcification and mild to moderate stenosis. Mild diffuse distal disease [] LEFT CIRCUMFLEX CORONARY ARTERY: Nondominant vessel with no significant atherosclerotic plaquing or stenosis present [] RIGHT CORONARY ARTERY: Dominant coronary artery arising from the right coronary cusp with a focal area in the midsegment with calcification and mild to moderate stenosis. [] THORACIC AORTA: Normal [] [] CORONARY CALCIUM SCORE: 174 [] Findings Coronary Artery Left Main (LM): 0 Left Anterior Descending (LAD): 62 Left Circumflex (LCX): 0 Right Coronary Artery (RCA): 112 Total Agatston Score: 174 Percentile Rankin to 75% Calcium Scoring Interpretation: Different methods to categorize the overall amount of coronary plaque. Overall amount CAC SIS Visual of coronary plaque P1 Mild -100 <2 1-2 vessels with mild amount of plaque P2 Moderate 101-300 3-4 1-2 vessels with moderate amount, 3 vessels with mild amount of plaque P3 Severe 301-999 5-7 3 vessels with moderate amount, 1 vessel with severe amount of plaque P4 Extensive >1000 >8 2-3 vessels with severe amount of plaque Conclusion: Mild two-vessel atherosclerotic plaquing noted.
== END 2025-01-20 23:59 | disposition home or self-care (01) ==
LOC: CT 12:11
PROVIDERS: PCP Internal Medicine; Referring Provider Internal Medicine Cardiovascular Disease; Visit Provider Internal Medicine Cardiovascular Disease
DX: R07.9 Chest pain, unspecified (principal); I20.9 Angina pectoris, unspecified; R06.09 Other forms of dyspnea; E78.00 Pure hypercholesterolemia, unspecified; I10 Essential (primary) hypertension; R06.02 Shortness of breath
CPT/HCPCS: 75571; 75574; 76380; Q9967

== ENCOUNTER → 2025-03-14 | Outpatient (CLI) | payer MEDICARE, SELFPAY ==
[2025-03-14 13:07] LABS: Hematocrit 38.8 % (37-47); Hemoglobin 12.5 g/dL (12.0-15.0); Immature Granulocytes Count 0.150 X10^3/uL (0.0-0.0); Mean Corp Hgb Conc 32.2 g/dL (32-36); Mean Corpuscular Volume 89.6 fL (81-99); Mean Platelet Vol. 11.3 fl (6.2-12.0); NRBC Flagged by Analyzer 0 % (0-5); Platelet Count 215 K/mm3 (150-450); RBC Distribution Width CV 14.0 % (11.6-14.6); RBC Distribution Width SD 45.8 fl (35.1-43.9); Red Blood Count 4.33 M/mm3 (4.2-5.4); White Blood Count 7.1 K/mm3 (4.4-11.0)
[2025-03-14 13:21] LABS: D-Dimer Quantitative (DVT/PE) 0.68 FEU/ug/m (0.27-0.49)
[2025-03-14 13:56] LABS: Anion Gap 11 (5-15); BUN 23 mg/dL (4-19); BUN/Creat Ratio 20.8 RATIO (10-20); Calcium,Total 9.9 mg/dL (7.6-11.0); Carbon Dioxide 23.0 mmol/L (21.0-32.0); Chloride 106 mmol/L (98-108); Glucose 86 mg/dL (70-99); Potassium 4.1 mmol/L (3.3-5.1); Pro- Brain NATRIURETIC PEPTIDE 307 pg/mL (<=1800)
--- OUTSIDE RECORDS SUMMARY | 2025-03-16 03:21 | XMS RPT_ITS | CCD ---
Author Organization [facility] Care Team Providers Care Electrician Ship Name Role Phone Julio C Washington MD Primary Care Provider Dr. Julio C Washington Primary Care Provider Dr. Carol Martinez Emergency Provider Dr. Kb Whalen Admit Provider Dr. Kb Whalen Attending Provider Dr. Kb Whalen Other Provider Dr. Reece Najera Attending Provider Dr. Reece Najera Other Provider Wei Rodriguez Chi Primary Care Provider [phone] Michael, Dr. Wei Kahn Primary Care Provider Dr. Arya Ramirez Attending Provider [phone] Tylor Zuniga Attending Provider Dr. Wei Rodriguez Chi Referring Provider Dr. Wei Rodriguez Chi Other Provider Michael, Wei Chi Primary Care Provider Dr. Tony Xiong Attending Provider Dr. Melba Philippe Attending Provider [phone] Dr. Melba Philippe Primary Care Provider Dr. Melba Philippe Referring Provider [phone] KYLEE Bermudez Attending Provider Dr. Rikki Dawn Attending Provider [phone] KYLEE Burgess Attending Provider [phone] KYLEE Burgess Referring Provider [phone] Michael, Dr. Wei Kahn Primary Care Provider Michael, Dr. Wei Kahn Referring Provider Michael, Dr. Wei Kahn Other Provider Dr. Arya Ramirez Attending Provider Julio C Washington MD Primary Care Provider Michael, Dr. Wei Kahn Primary Care Provider Michael, Dr. Wei Kahn Referring Provider Dr. Melba Philippe Attending Provider [phone] Dr. Melba Philippe Primary Care Provider [phone] Dr. Melba Philippe Referring Provider [phone] KYLEE Burgess Attending Provider [phone] Rikki Dawn Attending Provider [phone] KYLEE Burgess Referring Provider [phone] Dr. Melba Philippe Primary Care Provider [phone] Dr. Melba Philippe Referring Provider [phone] KYLEE Burgess Attending Provider [phone] Michael, Dr. Wei Kahn Referring Provider Dr. Melba Philippe Attending Provider [phone] KYLEE Quintanilla Attending Provider Dr. Melba Philippe Primary Care Provider [phone] Dr. Melba Philippe Referring Provider [phone] Dr. Wei Rodriguez Chi Referring Provider Dr. Melba Philippe Primary Care Provider [phone] Dr. Melba Philippe Attending Provider [phone] Dr. Melba Philippe Referring Provider [phone] Juan David PICHARDO, PA Domo Law Attending Provider Denae VALERO, Melba Magana Primary Care Provider [phone] Denae VALERO, Dr. Rios Primary Care Provider Fausto VALERO, Dr. Sotero Espino Attending Provider Fausto VALERO, Dr. Sotero Espino Referring Provider Fausto VALERO, Dr. Sotero Espino Other Provider Denae VALERO, Dr. Rios Attending Provider [phone] Denae VALERO, Dr. Rios Referring Provider [phone] Denae VALERO, Dr. Rios Other Provider [phone] Angelita VALERO, Dr. Mendoza Attending Provider Jitendra VALERO, Dr. Irizarry Attending Provider Jitendra VALERO, Dr. Irizarry Referring Provider Denae VALERO, Dr. Rios Primary Care Provider Fausto VALERO, Dr. Sotero Espino Attending Provider Fausto VALERO, Dr. Sotero Espino Referring Provider Fausto VALERO, Dr. Sotero Espino Other Provider Gladys VALEOR, Dr. Decker Attending Provider Denae VALERO, Dr. Rios Primary Care Provider Fausto VALERO, Dr. Sotero Espino Attending Provider Fausto VALERO, Dr. Sotero Espino Referring Provider Fausto VALERO, Dr. Sotero Espino Other Provider Denae VALERO, Dr. Rios Primary Care Provider Fausto VALERO, Dr. Sotero Espino Attending Provider Fausto VALERO, Dr. Sotero Espino Referring Provider Fausto VALERO, Dr. Sotero Espino Other Provider Tony VALERO, Dr. Butcher Attending Provider Tony VALERO, Dr. Butcher Referring Provider Denae VALERO, Dr. Rios Primary Care Provider Fausto VALERO, Dr. Sotero Espino Attending Provider Fausto VALERO, Dr. Sotero Espino Referring Provider Fausto VALERO, Dr. Sotero Espino Other Provider Denae VALERO, Dr. Rios Primary Care Provider Fausto VALERO, Dr. Sotero Espino Attending Provider Fausto VALERO, Dr. Sotero Espino Referring Provider Fausto VALERO, Dr. Sotero Espino Other Provider Denae VALERO, Dr. Rios Primary Care Provider Efrain VALERO, Dr. Snider Attending Provider Tony VALERO, Dr. Butcher Other Provider Jesus Duran Attending Provider Shamika Hernandez Attending Provider [phone] Oleghe, Efewongbe Primary Care Unavailable Oleghe, Efewongbe Attending Unavailable Oleghe, Efewongbe Referring Unavailable Oleghe, Efewongbe Primary Care Unavailable Oleghe, Efewongbe Referring Unavailable Oleghe, Efewongbe Attending Unavailable Oleghe, Efewongbe Primary Care Unavailable Tony, Hadley Referring Unavailable Tony, Hadley Attending Unavailable Oleghe, Efewongbe Primary Care Unavailable Sotero Lambert Attending Unavailable Sotero Lambert Referring Unavailable Oleghe, Efewongbe Primary Care Unavailable Vellanki, Edie Attending Unavailable Vellanki, Edie Referring Unavailable Oleghe, Efewongbe Primary Care Unavailable Tony, Hadley Referring Unavailable Tony, Hadley Attending Unavailable Oleghe, Efewongbe Primary Care Unavailable Lambert, Sotero A Attending Unavailable Lambert, Sotero A Referring Unavailable Oleghe, Efewongbe Primary Care Unavailable Lambert, Sotero A Referring Unavailable Lambert, Sotero A Attending Unavailable Oleghe, Efewongbe Attending Unavailable Oleghe, Efewongbe Referring Unavailable Oleghe, Efewongbe Primary Care Unavailable Oleghe, Efewongbe Primary Care Unavailable Oleghe, Efewongbe Referring Unavailable Oleghe, Efewongbe Attending Unavailable Oleghe, Efewongbe Primary Care Unavailable Oleghe, Efewongbe Referring Unavailable Oleghe, Efewongbe Attending Unavailable Oleghe, Efewongbe Primary Care Unavailable Vellanki, Edie Referring Unavailable Vellanki Edie Attending Unavailable Oleghe, Efewongbe Primary Care Unavailable Hector Landa Attending Unavailable Carol Martinez Attending Unavailable Oleghe, Efewongbe Primary Care Unavailable Oleghe, Efewongbe Primary Care Unavailable Oleghe, Efewongbe Referring Unavailable Oleghe, Efewongbe Attending Unavailable Oleghe, Efewongbe Primary Care Unavailable Bassam Shah Attending Unavailable Oleghe, Efewongbe Primary Care Unavailable Tony, Hadley Referring Unavailable Tony, Hadley Attending Unavailable Oleghe, Efewongbe Primary Care Unavailable Oleghe, Efewongbe Referring Unavailable Pratik Vasquez Attending Unavailable Carol Martinez Referring Unavailable Oleghe, Efewongbe Primary Care Unavailable Rikki Dawn Attending Unavailable Oleghe, Efewongbe Primary Care Unavailable Lambert Sotero A Attending Unavailable Lambert, Sotero A Referring Unavailable Oleghe, Efewongbe Primary Care Unavailable Lambert, Sotero A Referring Unavailable Lambert, Sotero A Attending Unavailable Oleghe, Efewongbe Primary Care Unavailable Lambert, Sotero A Referring Unavailable Lambert, Sotero A Attending Unavailable Oleghe, Efewongbe Primary Care Unavailable Tony, Hadley Referring Unavailable Tony, Hadley Consulting Unavailable Tylor Zuniga Attending Unavailable Oleghe, Efewongbe Attending Unavailable Oleghe, Efewongbe Referring Unavailable Oleghe, Efewongbe Primary Care Unavailable Oleghe, Efewongbe Consulting Unavailable Oleghe, Efewongbe Primary Care Unavailable Reji Goldstein Attending Unavailable Oleghe, Efewongbe Referring Unavailable Oleghe, Efewongbe Primary Care Unavailable Jeronimo Graham Attending Unavailable Oleghe, Efewongbe Referring Unavailable Oleghe, Efewongbe Referring Unavailable Domo Quintanilla Attending Unavailable Oleghe, Efewongbe Primary Care Unavailable Oleghe, Efewongbe Primary Care Unavailable Oleghe, Efewongbe Attending Unavailable Oleghe, Efewongbe Referring Unavailable Oleghe, Efewongbe Primary Care Unavailable Oleghe, Efewongbe Referring Unavailable Oleghe, Efewongbe Attending Unavailable Oleghe, Efewongbe Primary Care Unavailable Oleghe, Efewongbe Referring Unavailable Jesus Duran Attending Unavailable Oleghe, Efewongbe Primary Care Unavailable Oleghe, Efewongbe Referring Unavailable Shamika Goode Attending Unavailable Oleghe, Efewongbe Referring Unavailable NURSE, BIM Attending Unavailable Oleghe, Efewongbe Primary Care Unavailable Oleghe, Efewongbe Referring Unavailable NURSE, BIM Attending Unavailable Oleghe, Efewongbe Primary Care Unavailable Oleghe, Efewongbe Attending Unavailable Oleghe, Efewongbe Referring Unavailable Oleghe, Efewongbe Primary Care Unavailable Oleghe, Efewongbe Referring Unavailable NURSE, BIM Attending Unavailable Oleghe, Efewongbe Primary Care Unavailable Oleghe, Efewongbe Primary Care Unavailable Oleghe, Efewongbe Referring Unavailable Oleghe, Efewongbe Attending Unavailable Oleghe, Efewongbe Primary Care Unavailable Oleghe, Efewongbe Referring Unavailable Tony, Hadley Attending Unavailable Oleghe, Efewongbe Primary Care Unavailable Oleghe, Efewongbe Referring Unavailable Oleghe, Efewongbe Attending Unavailable Oleghe, Efewongbe Referring Unavailable Oleghe, Efewongbe Primary Care Unavailable Oleghe, Efewongbe Attending Unavailable Oleghe, Efewongbe Primary Care Unavailable Tony, Hadley Attending Unavailable Oleghe, Efewongbe Primary Care Unavailable Tylor Zuniga Attending Unavailable Tony, Hadley Referring Unavailable PEYTON CRANDALL Attending Unavailable OLEGHE, EFEWONGBE B Primary Care Unavailable PEYTON CRANDALL Attending Unavailable OLEGHE, EFEWONGBE B Primary Care Unavailable PEYTON CRANDALL Attending Unavailable OLEGHE, EFEWONGBE B Primary Care Unavailable PEYTON CRANDALL Attending Unavailable MELBA PHILIPPE Primary Care Unavailable PEYTON CRANDALL Attending Unavailable MELBA PHILIPPE Primary Care Unavailable Denae VALERO, Dr. Rios Primary Care Provider Dr. Melba Philippe MD Attending Provider [phone] Dr. Melba Philippe MD Referring Provider [phone] Dr. Pratik Vasquez DO Attending Provider Pierre Burkett Attending Provider Allergies Allergy Classification Reported Allergen(s) Allergy Type Date of Onset Reaction(s) Facility (20 sources) Baclofen; Translations: [BACLOFEN] Drug Allergy 02-20-20 Other: See Comments [facility] Comment on above: headache (20 sources) cyclobenzaprine; Translations: [cyclobenzaprine] Drug Allergy 02-20-20 Other: See Comments [facility] Comment on above: headache (20 sources) Diclofenac; Translations: [DICLOFENAC] Drug Allergy 02-20-20 Other: See Comments [facility] Comment on above: lethargy (20 sources) DULoxetine; Translations: [DULOXETINE] Drug Allergy 02-20-20 Myalgia [facility] (20 sources) pregabalin; Translations: [PREGABALIN] Drug Allergy 02-20-20 Other: See Comments [facility] Comment on above: insomnia (20 sources) Temazepam; Translations: [TEMAZEPAM] Drug Allergy 02-20-20 Other: See Comments [facility] Comment on above: disorientation (20 sources) carBAMazepine; Translations: [CARBAMAZEPINE] Drug Allergy 04-27-20 Other: See Comments [facility] Comment on above: did not specify (20 sources) clopidogrel; Translations: [CLOPIDOGREL] Drug Allergy 04-27-20 Other: See Comments [facility] Comment on above: lymphedema (20 sources) gabapentin; Translations: [GABAPENTIN] Drug Allergy 04-27-20 Other: See Comments [facility] Comment on above: Don't like it (20 sources) hydroCHLOROthiazide; Translations: [HYDROCHLOROTHIAZIDE] Drug Allergy 04-27-20 Other: See Comments [facility] Comment on above: edema feet/ankles (20 sources) Methylphenidate; Translations: [METHYLPHENIDATE] Drug Allergy 04-27-20 Other: See Comments [facility] Comment on above: didn't like it (20 sources) DULoxetine; Translations: [cymbalta] Drug Allergy 05-05-[address] [facility] Comment on above: ineffective (20 sources) calm forte; Translations: [calm forte] Propensity to adverse reactions 05-05-[address] [facility] Comment on above: sleepy (1 source) Baclofen Drug Allergy 02-10-[address] [facility] Rep[facility] (1 source) carBAMazepine Drug Allergy 02-10-[address] [facility] (1 source) clopidogrel Drug Allergy 02-10-[address] [facility] (1 source) Diclofenac Drug Allergy 02-10-[address] [facility] (1 source) gabapentin Drug Allergy 02-10-[address] [facility] (1 source) hydroCHLOROthiazide Drug Allergy 02-10-[address] [facility] (1 source) Methylphenidate Drug Allergy 02-10-[address] [facility] (1 source) pregabalin Drug Allergy 02-10-[address] [facility] (1 source) Temazepam Drug Allergy 02-10-[address] [facility] Medications Current Medications Medication Drug Class(es) Dates Sig (Normalized) Sig (Original) acetaminophen 194 mg / aspirin 227 mg / caffeine 33 mg oral tablet (20 sources) Platelet Aggregation Inhibitor, Nonsteroidal Anti-inflammatory Drug, Central Nervous System Stimulant, Methylxanthine End: 12-24-2022 ASA-Acetaminophe a-Wokz-Ujrcfko (VANQUISH) 227-194-33 mg tab Take by oral route as needed. Active Comment on above: 2 as needed Take by oral route a s needed. amLODIPine 2.5 mg oral tablet (8 sources) Dihydropyridine Calcium Channel Ivory Start: 12-08-2024 take 1 tablet by mouth once daily Amlodipine 2.5 mg tablet Active 2.5 mg PO daily 30 December 08, 2024 12:00am benoxinate hydrochloride 4 mg/ml / fluorescein sodium 3 mg/ml ophthalmic solution (8 sources) Diagnostic Dye Start: 03-07-2025 End: 03-07-2025 fluorescein-ashley xinate 0.3-0.4 % 1 drop (FLURESS) Start: 03-07-2025 End: 03-07-2025 1 drop, BOTH EYES, DIRECT ED, Starting on Thu03/07/25 at 1030, Until Thu03/07/25 at 2229, Administer for applanation tonometry. In the event of a Fluress shortage, administer Jasmin-Fluor 1 drop into both eyes as directed for applanation tonometry Start: 11-03-2024 End: 11-03-2024 fluorescein-benoxinate 0.3-0 .4 % 1 Drop (FLURESS) Start: 11-03-2024 End: 11-03-2024 1 Drop, BOTH EYES, DIRECT ED, Starting on Thu11/03/24 at 1030, Until Thu11/03/24 at 2229, Administer for applanation tonometry. In the event of a Fluress shortage, administer Kingman-Fluor 1 drop into both eyes as directed for applanation tonometry Start: 05-02-2024 End: 05-03-2024 fluorescein-benoxinate 0.3-0 .4 % 1 Drop (FLURESS) Start: 05-02-2024 End: 05-03-2024 1 Drop, BOTH EYES, DIRECT ED, Starting on Thu05/02/24 at 1230, Until Thu05/03/24 at 0029, Administer for applanation tonometry. In the event of a Fluress shortage, administer Jasmin-Fluor 1 drop into both eyes as directed for applanation tonometry Start: 04-30-2023 End: 04-30-2023 fluorescein-benoxinate 0.25- 0.4 % 1 Drop (FLURESS) Start: 09-19-2022 End: 09-19-2022 fluorescein-benoxinate 0.25- 0.4 % 1 Drop (FLURESS) 24 hr buPROPion hydrochloride 150 mg extended release oral tablet (4 sources) Aminoketone Start: 01-18-2025 buPROPion XL ( WELLBUTRIN XL) 150 mg 24 hr tablet 01/18/2025 Active Start: 01-18-2025 End: 02-09-2025 take 1 tablet by mouth once daily in the morning Bupropion Hcl 150 mg tablet extended release 24 hr Discontinued 150 mg PO EVERY MORNING 30 January 18, 2025 12:00am February 09, 2025 1:57pm cholecalciferol 1.25 mg oral capsule (7 sources) Vitamin D Start: 01-11-2025 End: 01-18-2025 take 1 capsule by mouth every week Cholecalciferol (Vitamin D3) 1,250 mcg (50,000 unit) capsule Active 1250 ug PO EVERY WEEK 14 January 18, 2025 11:05am Comp.Stocking,Thigh,Lo ng,X-Lrg misc (9 sources) Start: 10-12-2024 Comp.Stocking, Thigh,Lo ng,X-Lrg misc Active 0 .Route 2 0 October 12, 2024 1:00am Venous insufficiency Venous insufficiency (chronic) (peripheral) 20 - 30 mmHg Start: 10-12-2024 Comp.Stocking, Thigh,Long,X-Lrg misc Active 0 .Route 2 October 12, 2024 1:00am 20 - 30 mmHg latanoprost 0.05 mg/ml ophthalmic solution (10 sources) Prostaglandin Analog Start: 12-29-2024 End: 02-28-2025 take 1 drop(s) into the eye(s) once daily at bedtime latanoprost (XALATAN) 0.005 % ophthalmic solution Use 1 drop in both eyes daily at bedtime. 7.5 mL 2 03/01/2025 Active Start: 12-08-2024 Latanoprost 0. 005 % drops Active 1 NMA OPHTHALMIC AT BEDTIME December 08, 2024 12:00am Start: 12-01-2024 take 1 drop(s) into the eye(s) once daily at bedtime latanoprost (XALATAN) 0.005 % ophthalmic solution Use 1 Drop in both eyes daily at bedtime. 2.5 mL 2 12/01/2024 Active 24 hr metoprolol succinate 50 mg extended release oral tablet (20 sources) beta-Adrenergic Ivory Start: 03-06-2025 metopr olol succinate ER (TOPROL XL) 50 mg 24 hr tablet 03/06/2025 Active Start: 12-08-2024 take 1 tablet by gail once daily Metoprolol Succinate 50 mg tablet extended release 24 hr Active 50 mg PO daily 30 6 Jordyn 3rd, 2025 12:00am Start: 01-02-2023 End: 04-27-2023 Metoprolol Succinate 25 mg Capsule,Sprinkle,Er 24hr Discontinued 12.5 mg PO DAILY January 02, 2023 12:00am April 27, 2023 12:49pm bp Start: 01-02-2023 End: 04-27-2023 take 12.5 mg by mouth once daily Metoprolol Succinate Discontinued 12.5 MG PO DAILY January 02, 2023 12:00am April 27, 2023 12:49pm Start: 12-24-2022 take 0.5 tablet by m outh once daily metoprolol succinate ER (TOPROL XL) 25 mg 24 hr tablet Take 0.5 tablets by mouth once daily. 15 tablet 11 12/24/2022 Active Comment on above: Take 0.5 tablets by mouth once daily. pantoprazole 40 mg delayed release oral tablet (15 sources) Proton Pump Inhibitor Start: take 1 tablet by mouth once daily Pantoprazole (Protonix) 40 mg tablet,delayed release (DR/EC) Active 40 mg PO DAILY November 25, 2023 12:00am phenylephrine hydrochloride 25 mg/ml ophthalmic solution (4 sources) alpha-1 Adrenergic Agonist Start: End: PHENYLephrine 2.5 % 1 Drop (AK-DILATE, CHANTAL-SYNEPHRINE) Start: 05-02-2024 End: 05-03-2024 1 Drop, BOTH EYES, DIRECT ED, Starting on Thu05/02/24 at 1230, Until Thu05/03/24 at 0029, Administer for dilation PROTECT FROM LIGHT Start: 04-30-2023 End: 04-30-2023 PHENYLephrine 2.5 % 1 Drop ( AK-DILATE, CHANTAL-SYNEPHRINE) Start: 09-19-2022 End: 09-19-2022 PHENYLephrine 2.5 % 1 Drop ( AK-DILATE, CHANTAL-SYNEPHRINE) predniSONE 5 mg oral tablet (3 sources) Start: 02-09-2025 predniSONE 5 m g DsPk 02/09/2025 Active Start: 02-09-2025 End: 03-14-2025 Prednisone 5 mg tablets,dose pack Discontinued 5 mg PO As Directed February 09, 2025 12:00am March 14, 2025 11:33am Sciatica of right side Sciatica, right side see taper instructions risedronate sodium 150 mg oral tablet (18 sources) Start: 03-07-2024 End: 01-18-2025 take 1 tablet by mouth every month Risedronate 150 mg tablet Active 150 mg PO EVERY MONTH 7 January 18, 2025 11:17am administer at least 30 minutes before the first food or drink of the day other than water. Start: 01-01-2022 End: 02-19-2022 Risedronate 150 mg tablet tiZANidine 2 mg oral tablet (20 sources) Central alpha-2 Adrenergic Agonist Start: 02-09-2025 tiZANidine (ZANAFLEX ) 2 mg tablet 02/09/2025 Active Start: 01-26-2025 End: 03-14-2025 take 1 capsule by mouth every eight hours as needed Tizanidine 2 mg capsule Discontinued 2 mg PO Q8H as needed for muscle spasticity February 09, 2025 2:17pm March 14, 2025 11:33am Sciatica of right side Sciatica, right side End: 05-02-2024 tiZANidine HCl (ZANAFLEX) 4 mg capsule Take 1 capsule by mouth as needed. 05/02/2024 Discontinued (Other) Comment on above: Take 1 capsule by mo [facility] as needed. tropicamide 10 mg/ml ophthalmic solution (4 sources) Anticholinergic Start: 05-02-2024 End: 05-03-2024 tropicamide 1 % 1 Drop (MYDRIACYL) Start: 05-02-2024 End: 05-03-2024 1 Drop, BOTH EYES, DIRECT ED, Starting on Thu05/02/24 at 1230, Until Thu05/03/24 at 0029, Administer for dilation Start: 04-30-2023 End: 04-30-2023 tropicamide 1 % 1 Drop (MYDR IACYL) Start: 09-19-2022 End: 09-19-2022 tropicamide 1 % 1 Drop (MYDR IACYL) vitamin D3-vitamin K2 1,250- 200 mcg cap (1 source) Start: 01-19-2025 vitamin D3-vit lubin K2 1,250-200 mcg cap 01/19/2025 Active Completed/Discontinued Medications Medication Drug Class(es) Dates Sig (Normalized) Sig (Original) acetaminophen 250 mg / ibuprofen 125 mg oral tablet (20 sources) Nonsteroidal Anti-inflammatory Drug Start: 01-02-2023 End: 01-12-2023 Ibuprofen-Acetamin ophen (Advil Dual Action) 125-250 mg Tablet Discontinued 2 {tbl} PO TWICE A DAY January 02, 2023 12:00am January 12, 2023 8:14pm RA Comment on above: Take 250 mg by mouth twice daily as needed. acetaminophen 325 mg / oxyCODONE hydrochloride 5 mg oral tablet (20 sources) Opioid Agonist Start: 05-31-2024 End: 10-12-2024 Oxycodone-Acetamin ophen (Percocet) 5-325 mg tablet Discontinued 1 {tbl} PO Q8H as needed for pain 14 7 0 May 31, 2024 October 12, 2024 12:07pm 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 exposed Start: 04-27-2024 End: 10-12-2024 Oxycodone-Acetaminophen (Per cocet) 5-325 mg tablet Discontinued 1 {tbl} PO EVERY 6 HOURS as needed for pain 12 3 0 April 27, 2024 October 12, 2024 12:08pm Fracture of triquetrum of right wrist Start: 04-27-2024 oxyCODONE-acet aminophen (PERCOCET) 5-325 mg tablet 04/27/2024 Active amoxicillin 500 mg oral capsule (13 sources) Penicillin-class Antibacterial Start: 09-08-2023 End: 09-18-2023 take 1 capsule by mouth three times daily Amoxicillin 500 mg capsule Discontinued 500 mg PO THREE TIMES A DAY 30 10 0 September 08, 2023 1:00am September 17, 2023 1:00am September 18, 2023 1:05am apixaban 5 mg oral tablet (20 sources) Factor Xa Inhibitor Start: 05-19-2023 End: 08-24-2023 take 1 tablet by mouth twice daily Apixaban (Eliquis) 5 mg tablet Discontinued 5 mg PO TWICE A DAY 30 0 May 19, 2023 12:00am August 24, 2023 4:11pm Start: 02-16-2023 ELIQUIS 5 mg t ab(s) Start: 01-12-2023 End: 04-27-2023 take 2.5 mg by mouth twice daily Apixaban (Eliquis) 5 mg Tablet Discontinued 2.5 mg PO TWICE A DAY January 12, 2023 12:00am April 27, 2023 12:49pm Start: 01-06-2023 End: 01-12-2023 take 1 tablet by mouth twice daily Apixaban (Eliquis) 2.5 mg tablet Discontinued 2.5 mg PO TWICE A DAY January 06, 2023 6:51pm January 12, 2023 8:14pm Blood Thinner aspirin 81 mg delayed release oral tablet (9 sources) Platelet Aggregation Inhibitor, Nonsteroidal Anti-inflammatory Drug Start: 12-08-2024 End: 01-18-2025 Aspirin (Adult Low Dose Aspirin) 81 mg tablet,delayed release (DR/EC) Discontinued 81 mg PO daily December 08, 2024 12:00am January 18, 2025 10:39am Start: 12-24-2022 take 1 tablet by gail th once daily aspirin, enteric coated (ECOTRIN LOW STRENGTH) 81 mg EC tablet Take 1 tablet by mouth once daily. 0 12/24/2022 Active Comment on above: Take 1 tablet by gail th once daily. aspirin 325 mg / butalbital 50 mg / caffeine 40 mg / codeine phosphate 30 mg oral capsule (7 sources) Platelet Aggregation Inhibitor, Opioid Agonist, Barbiturate, Nonsteroidal Anti-inflammatory Drug, Central Nervous System Stimulant, Methylxanthine End: 2022 qrsmipbhku-ozsnmbm-guxe eine-codeine (FIORINAL WITH CODEINE) capsule 1 caps prn 0 09/10/2022 Discontinued Comment on above: 1 caps prn cephalexin 500 mg oral tablet (9 sources) Cephalosporin Antibacterial Start: 2023 End: 2023 take 1 tablet by mouth three times daily Cephalexin 500 mg tablet Discontinued 500 mg PO THREE TIMES A DAY May 05, 2024 12:00am May 17, 2024 2:19pm ciprofloxacin 500 mg oral tablet (9 sources) Quinolone Antimicrobial Start: 2023 End: 2023 take 1 tablet by mouth twice daily Ciprofloxacin Hcl (Cipro) 500 mg tablet Discontinued 500 mg PO TWICE A DAY June 03, 2024 12:00am June 14, 2024 1:09pm Wound Infection docusate sodium 100 mg oral tablet (5 sources) End: 2021 Docusate Sodium 100 mg tab q 24 HR. 0 08/26/2022 Discontinued Comment on above: q 24 HR. doxycycline monohydrate 100 mg oral tablet (9 sources) Tetracycline-class Drug Start: 2023 End: 2023 take 1 tablet by mouth twice daily Doxycycline Monohydrate 100 mg tablet Discontinued 100 mg PO TWICE A DAY 14 0 May 05, 2024 12:00am May 17, 2024 2:19pm fluticasone propionate 0.05 mg/actuat metered dose nasal spray (10 sources) Corticosteroid End: 2023 fluticasone (FLONASE) 50 mcg/actuation nasal spray 05/02/2024 Discontinued (Other) Comment on above: Uses prn hydroxychloroquine sulfate 200 mg oral tablet (20 sources) Antimalarial, Antirheumatic Agent Start: 2022 End: 2023 take 1 tablet by mouth twice daily Hydroxychloroquine 200 mg tablet Discontinued 200 mg PO TWICE A DAY April 27, 2023 12:00am June 08, 2024 8:59am metroNIDAZOLE 500 mg oral tablet (18 sources) Nitroimidazole Antimicrobial Start: 2023 End: 2024 take 1 tablet by mouth three times daily Metronidazole 500 mg tablet Discontinued 500 mg PO THREE TIMES A DAY June 14, 2024 12:00am October 12, 2024 12:07pm Start: 06-07-2024 End: 06-08-2024 take 1 tablet by mouth three times daily Metronidazole 500 mg tablet Discontinued 500 mg PO THREE TIMES A DAY 21 0 June 07, 2024 12:00am June 08, 2024 8:58am Wound infection oxyCODONE hydrochloride 5 mg oral tablet (20 sources) Opioid Agonist Start: 01-06-2023 End: 01-12-2023 take 2.5-5 mg by mouth every four hours as needed for pain Oxycodone 5 mg Tablet Discontinued 2.5 - 5 mg PO EVERY 4 HOURS NEEDED as needed for Pain Score 4-10 7 3 0 January 06, 2023 January 12, 2023 8:14pm Closed nondisplaced fracture of right tibial plateau Difficulty walking Difficulty in walking, not elsewhere classified polyethylene glycol [id number] [id number] mg / potassium chloride 2970 mg / sodium bicarbonate 6740 mg / sodium chloride 5860 mg / sodium sulfate 22555 mg powder for oral solution (1 source) Osmotic Laxative Start: 09-10-2022 End: 09-10-2022 peg 3350-Electrolytes (GOLYTELY) 236-22.74-6.74 -5.86 gram suspension Take 4,000 mL by mouth one time only for 1 dose. 1 Each 0 09/10/2022 09/10/2022 Comment on above: Take 4,000 mL by gail th one time only for 1 dose. rivaroxaban 20 mg oral tablet (20 sources) Factor Xa Inhibitor Start: 04-15-2023 End: 05-19-2023 take 1 tablet by mouth once daily at dinner Rivaroxaban (Xarelto) 20 mg tablet Discontinued 20 mg PO DAILY April 27, 2023 12:00am May 19, 2023 8:51am must administer with evening meal 24 hr rOPINIRole 2 mg extended release oral tablet (20 sources) Nonergot Dopamine Agonist Start: 08-25-2023 End: 06-08-2024 take 2 mg by mouth three times daily Ropinirole 2 mg tablet extended release 24 hr Discontinued 4 mg PO THREE TIMES A DAY 540 90 2 November 11, 2023 2:10pm June 08, 2024 9:17am Start: 08-25-2023 End: 11-11-2023 take 4 mg by mouth three times daily Ropinirole Active 4 MG PO THREE TIMES A DAY 540 90 November 11, 2023 2:10pm Start: 08-24-2023 End: 08-25-2023 take 4 mg by mouth three times daily Ropinirole Discontinued 4 MG PO THREE TIMES A DAY 540 90 August 24, 2023 5:01pm August 25, 2023 11:59am Start: 01-02-2023 End: 08-25-2023 take 1 tablet by mouth three times daily Ropinirole 2 mg tablet Discontinued 2 mg PO THREE TIMES A DAY April 27, 2023 12:48pm August 24, 2023 4:36pm restless legs Start: 01-02-2023 End: 04-27-2023 take 4 mg by mouth three times daily Ropinirole Discontinued 4 MG PO THREE TIMES A DAY January 02, 2023 12:00am April 27, 2023 12:50pm Start: 02-19-2022 End: 10-28-2023 take 2 tablets by mouth three times daily rOPINIRole ER (REQUIP XL) 2 mg tablet Indications: Myalgia , Nerve pain , RLS (restless legs syndrome) Take 2 tablets by mouth three times daily. 540 tablet 3 10/28/2022 Active Start: 12-03-2021 End: 02-19-2022 rOPINIRole 2 mg 24 hr tablet Comment on above: Take 2 tablets by mo ut three times daily. spironolactone 25 mg oral tablet (20 sources) Aldosterone Antagonist Start: 10-15-2023 End: 05-02-2024 spironolactone (ALDACTONE) 25 mg tablet 10/15/2023 05/02/2024 Discontinued (Other) Start: 08-24-2023 End: 03-07-2024 Spironolactone 25 mg tablet Discontinued 12.5 mg PO DAILY October 15, 2023 9:41am March 07, 2024 10:53am Start: 08-24-2023 End: 10-15-2023 take 12.5 mg by mouth once daily Spironolactone Active 12.5 MG PO DAILY October 15, 2023 9:41am Problems Active Problems Problem Classification Problem Date Documented Da te Episodic/Chronic Administrative/social admission (20 sources) Patient encounter status; Translations: [Persons encountering health services in other specified circumstances] Episodic Blindness and vision defects (8 sources) Presbyopia; Translations: [Presbyopia] Onset: 5 Episodic Cataract (9 sources) Bilateral pseudophakia; Translations: [Presence of intraocular lens] Onset: 5 Chronic Chronic kidney disease (9 sources) Chronic kidney disease stage 3; Translations: [Stage 3 chronic kidney disease] 10-13-2024 Chronic Chronic ulcer of skin (20 sources) Non-pressure chronic ulcer of unspecified part of right lower leg with fat layer exposed; Translations: [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 exposed] Onset: 4 05-18-2024 Chronic Complications of surgical procedures or medical care (20 sources) Dehiscence of surgical wound; Translations: [Disruption of external operation (surgical) wound, not elsewhere classified, initial encounter] 05-24-2024 Episodic Coronary atherosclerosis and other heart disease (14 sources) Angina pectoris; Translations: [Angina pectoris, unspecified] Onset: 5 12-08-2024 Chronic Diabetes mellitus without complication (1 source) Increased glucose level; Translations: [Other abnormal glucose] Episodic Disorders of lipid metabolism (20 sources) Hypercholesterolemia; Translations: [Pure hypercholesterolemia, unspecified] Onset: 3 04-27-2023 Chronic E Codes: Fall (1 source) Fall; Translations: [Unspecified fall, initial encounter] Episodic Esophageal disorders (20 sources) Gastroesophageal reflux disease; Translations: [Gastro-esophageal reflux disease without esophagitis] Onset: 5 04-27-2023 Chronic Essential hypertension (20 sources) Hypertensive disorder; Translations: [Essential (primary) hypertension] Onset: 5 01-06-2023 Chronic Fracture of lower limb (20 sources) Closed fracture of tibial plateau; Translations: [Nondisplaced bicondylar fracture of right tibia, initial encounter for closed fracture] 01-02-2023 Episodic Fracture of upper limb (10 sources) Fracture of triquetral bone of wrist; Translations: [Displaced fracture of triquetrum [cuneiform] bone, right wrist, initial encounter for closed fracture] Onset: 4 05-05-2024 Episodic Glaucoma (10 sources) Preglaucoma, unspecified, bilateral; Translations: [Preglaucoma, unspecified] Onset: 5 Chronic Headache; including migraine (20 sources) Refractory migraine without aura; Translations: [Migraine without aura, intractable, without status migrainosus] Onset: 5 Chronic Hypertension with complications and secondary hypertension (1 source) Hypertensive chronic kidney disease with stage 1 through stage 4 chronic kidney disease, or unspecified chronic kidney disease; Translations: [Hypertensive chronic kidney disease with stage 1 through stage 4 chronic kidney disease, or unspecified chronic kidney disease] Onset: 5 Chronic Malaise and fatigue (20 sources) Asthenia; Translations: [Other malaise] 01-06-2023 Episodic Mood disorders (4 sources) Depressive disorder; Translations: [Depression] 01-18-2025 Chronic Mycoses (1 source) Onychomycosis; Translations: [Tinea unguium] Episodic Nonspecific chest pain (20 sources) Chest pain; Translations: [Chest pain, unspecified] Onset: Episodic Nutritional deficiencies (4 sources) Vitamin D deficiency; Translations: [Vitamin D deficiency, unspecified] 01-18-2025 Chronic Open wounds of extremities (20 sources) Laceration of lower limb; Translations: [Laceration without foreign body, unspecified lower leg, initial encounter] Onset: 5 05-05-2024 Episodic Osteoarthritis (20 sources) Arthritis; Translations: [Unspecified osteoarthritis, unspecified site] Onset: 7 04-27-2023 Chronic Osteoporosis (20 sources) Osteoporosis; Translations: [Age-related osteoporosis without current pathological fracture] Onset: 7 Chronic Other aftercare (3 sources) Long-term current use of drug therapy; Translations: [Other long term care pharmacist (current) drug therapy] 05-02-2024 Episodic Other aftercare (9 sources) Wound finding; Translations: [Encounter for other specified aftercare] 05-18-2024 Episodic Other aftercare (9 sources) Surgical follow-up; Translations: [Encounter for removal of sutures] 05-18-2024 Episodic Other aftercare (1 source) Other long term care pharmacist (current) drug therapy; Translations: [Encounter for long-term (current) use of high-risk medication] Onset: Episodic Other and unspecified benign neoplasm (1 source) History of polyp of colon; Translations: [Personal history of colonic polyps] Episodic Other bone disease and musculoskeletal deformities (20 sources) Osteopenia; Translations: [Other specified disorders of bone density and structure, unspecified site] 04-27-2023 Episodic Other circulatory disease (9 sources) Other specified symptoms and signs involving the circulatory and respiratory systems; Translations: [Other symptoms involving cardiovascular system] 05-05-2023 Episodic Other connective tissue disease (1 source) Muscle pain; Translations: [Myalgia, unspecified site] Episodic Other connective tissue disease (1 source) Neuralgia; Translations: [Neuralgia and neuritis, unspecified] Episodic Other connective tissue disease (1 source) Pain of toe of left foot; Translations: [Pain in left toe(s)] Episodic Other connective tissue disease (1 source) Pain of toe of right foot; Translations: [Pain in right toe(s)] Episodic Other connective tissue disease (19 sources) Foot pain; Translations: [Pain in unspecified foot] 04-27-2023 Episodic Other connective tissue disease (19 sources) Pain of right lower leg; Translations: [Pain in right lower leg] 05-05-2023 Episodic Other connective tissue disease (6 sources) Pain in unspecified foot; Translations: [Pain in limb] 04-27-2023 Episodic Other connective tissue disease (9 sources) Swelling of right lower limb; Translations: [Other specified soft tissue disorders] 05-09-2024 Episodic Other connective tissue disease (9 sources) Pain in lower limb; Translations: [Pain in right leg] 05-09-2024 Episodic Other diseases of veins and lymphatics (20 sources) Postthrombotic syndrome; Translations: [Postthrombotic syndrome without complications of unspecified extremity] 03-07-2024 Chronic Other diseases of veins and lymphatics (19 sources) Vascular insufficiency; Translations: [Venous insufficiency (chronic) (peripheral)] 10-12-2024 Episodic Other fractures (9 sources) Closed fracture of rib; Translations: [Fracture of one rib, unspecified side, initial encounter for closed fracture] 05-05-2024 Episodic Other gastrointestinal disorders (2 sources) Gastrointestinal symptom; Translations: [Other specified symptoms and signs involving the digestive system and abdomen] Episodic Other gastrointestinal disorders (14 sources) Swallowing painful; Translations: [Dysphagia, unspecified] 08-24-2023 Episodic Other gastrointestinal disorders (6 sources) Dysphagia, unspecified; Translations: [Dysphagia, unspecified] 08-24-2023 Episodic Other hereditary and degenerative nervous system conditions (20 sources) Restless legs; Translations: [Restless legs syndrome] Onset: Chronic Other hereditary and degenerative nervous system conditions (20 sources) Restless legs syndrome; Translations: [Restless legs syndrome (RLS)] 01-06-2023 Chronic Other injuries and conditions due to external causes (1 source) Muscle strain; Translations: [Other injury of unspecified body region, initial encounter] Episodic Other injuries and conditions due to external causes (9 sources) Follow-up status; Translations: [Other injury of unspecified body region, subsequent encounter] 05-09-2024 Episodic Other lower respiratory disease (18 sources) Dyspnea; Translations: [Shortness of breath] Episodic Other lower respiratory disease (20 sources) Dyspnea on exertion; Translations: [Other forms of dyspnea] 10-12-2024 Episodic Other lower respiratory disease (2 sources) Other forms of dyspnea; Translations: [Other forms of dyspnea] Onset: 5 Episodic Other lower respiratory disease (2 sources) Shortness of breath; Translations: [Shortness of breath] Onset: 5 Episodic Other nervous system disorders (20 sources) Difficulty walking; Translations: [Difficulty in walking, not elsewhere classified] 01-02-2023 Chronic Other nervous system disorders (10 sources) Difficulty in walking, not elsewhere classified; Translations: [Difficulty in walking] 01-02-2023 Chronic Other nervous system disorders (20 sources) Carpal tunnel syndrome; Translations: [Carpal tunnel syndrome, unspecified upper limb] Onset: 1 04-27-2023 Chronic Other nervous system disorders (19 sources) Neuropathy; Translations: [Polyneuropathy, unspecified] Onset: 9 05-06-2023 Chronic Other nervous system disorders (19 sources) Numbness of foot ; Translations: [Anesthesia of skin] 04-27-2023 Episodic Other screening for suspected conditions (not mental disorders or infectious disease) (5 sources) Encounter for screening for malignant neoplasm of colon; Translations: [Special screening for malignant neoplasms of colon] 08-24-2023 Episodic Other skin disorders (2 sources) Ingrowing toenail; Translations: [Ingrowing nail] Episodic Other skin disorders (14 sources) Non-scarring alopecia; Translations: [Nonscarring hair loss, unspecified] 08-24-2023 Episodic Other skin disorders (6 sources) Nonscarring hair loss, unspecified; Translations: [Other alopecia] 08-24-2023 Episodic Other skin disorders (10 sources) Localized swelling of back; Translations: [Localized swelling, mass and lump, trunk] 11-25-2023 Episodic Other skin disorders (9 sources) Abnormal hair finding; Translations: [Other hair color and hair shaft abnormalities] 03-07-2024 Episodic Other skin disorders (4 sources) Disorder of nail; Translations: [Nail disorder, unspecified] 01-18-2025 Episodic Phlebitis; thrombophlebitis and thromboembolism (20 sources) H/O: thrombosis; Translations: [Personal history of other venous thrombosis and embolism] Onset: 3 05-06-2023 Episodic Residual codes; unclassified (1 source) History of chest pain; Translations: [Personal history of other specified conditions] Episodic Residual codes; unclassified (19 sources) H/O: blood transfusion; Translations: [Personal history of other medical treatment] 04-27-2023 Episodic Residual codes; unclassified (20 sources) History of operative procedure on foot; Translations: [Other specified postprocedural states] 04-27-2023 Episodic Residual codes; unclassified (20 sources) Past history of procedure; Translations: [Other specified postprocedural states] 04-27-2023 Episodic Residual codes; unclassified (19 sources) Edema; Translations: [Edema, unspecified] 04-27-2023 Episodic Rheumatoid arthritis and related disease (20 sources) Rheumatoid arthritis; Translations: [Rheumatoid arthritis, unspecified] Onset: 9 Chronic Skin and subcutaneous tissue infections (10 sources) Cellulitis; Translations: [Cellulitis, unspecified] Onset: 4 05-05-2024 Episodic Spondylosis; intervertebral disc disorders; other back problems (20 sources) Chronic low back pain; Translations: [Lumbago with sciatica, right side] Onset: 5 Episodic Superficial injury; contusion (18 sources) Hematoma of right lower leg; Translations: [Contusion of right lower leg, initial encounter] 05-09-2024 Episodic Unclassified (8 sources) R07.9 - Chest pain, unspecified Past or Other Problems Problem Classification Problem Date Documented Da te Episodic/Chronic Other bone disease and musculoskeletal deformities (7 sources) Other specified disorders of bone density and structure, unspecified site; Translations: [Disorder of bone and cartilage, unspecified] Onset: 11-20-2024 04-27-2023 Episodic Other connective tissue disease (20 sources) Fibromyalgia; Translations: [Fibromyalgia] Onset: 08-25-2022 08-25-2022 Episodic Other connective tissue disease (1 source) Other specified soft tissue disorders; Translations: [Other specified soft tissue disorders] Onset: 05-05-2024 Episodic Other injuries and conditions due to external causes (1 source) Encounter for examination and observation following other accident; Translations: [Encounter for examination and observation following other accident] Onset: 10-12-2024 Episodic Other skin disorders (1 source) Other hair color and hair shaft abnormalities; Translations: [Other hair color and hair shaft abnormalities] Onset: 03-07-2024 Episodic Residual codes; unclassified (1 source) Asymptomatic menopausal state; Translations: [Asymptomatic menopausal state] Onset: 10-12-2024 Episodic Residual codes; unclassified (1 source) Localized edema; Translations: [Localized edema] Onset: 10-12-2024 Episodic Results Test Name Value Interpretation Reference Range Facility Internal Medicine Office Vis iton 02-09-2025 Internal Medicine Office Visit Normal [facility] Urgent Care Visit Reporton 0 01-26-2025 Urgent Care Visit Report Normal [facility] Coronary Angiography CTon Coronary Angiography CT Normal [facility] Limited Chest CT Cardiac Onl yon 01-20-[address] Cardiac Only Normal [facility] Internal Medicine Office Vis [facility] 01-18-2025 Internal Medicine Office Visit Normal [facility] Anion gap in Serum or Plasma Ordered By: Melba Philippe on 01-11-2025 Anion gap [Moles/Vol] 10 mmol/L - [facility] BUN/creatinine ratioOrdered By: Melba Philippe on 01-11-2025 Urea nitrogen/Creatinine [Mass ratio] 22.0 mg/mg High 10- [facility] Basic Metabolic Profile (BMP )on 01-11-2025 BUN/CRE 22.0 RATIO High - [facility] Comment on above: Performed By: #### L 500.2500, L506.1001, L500.4100 ####[facility] [address] [place], [address] Calcium [Mass/Vol] 9.2 mg/dL Normal 7.6-11.0 [facility] Comment on above: Performed By: #### L 500.2500, L506.1001, L500.4100 ####[facility] [address] [place], [address] Chloride [Moles/Vol] 109 mmol/L High 98-108 [facility] Comment on above: Performed By: #### L 500.2500, L506.1001, L500.4100 ####[facility] [address] [place], [address] CO2 [Moles/Vol] 20.3 mmol/L Low 21.0-32.[address] [facility] Comment on above: Performed By: #### L 500.2500, L506.1001, L500.4100 ####[facility] [address] [place], [address] Creatinine [Mass/Vol] 1.09 mg/dL Normal 0.70-1.20 [facility] Comment on above: Performed By: #### L 500.2500, L506.1001, L500.4100 ####[facility] [address] [place], [address] GAP 10 Normal 5-[address] [facility] Comment on above: Performed By: #### L 500.2500, L506.1001, L500.4100 ####[facility] [address] [place], [address] GFR/1.73 sq M.predicted among non-blacks MDRD (S/P/Bld) [Vol rate/Area] 51 mL/min/{1.73_m2} Low >60 [facility] Comment on above: Result Comment: mL/m in/1.73m2 CKD-EPI Creatinine Equation (2020) Performed By: #### L 500.2500, L506.1001, L500.4100 ####[facility] [address] [place], [address] Glucose [Mass/Vol] 89 mg/dL Normal 70-99 [facility] Comment on above: Performed By: #### L 500.2500, L506.1001, L500.4100 ####[facility] [address] [place], [address] Potassium [Moles/Vol] 4.2 mmol/L Normal 3.3-5.1 [facility] Comment on above: Performed By: #### L 500.2500, L506.1001, L500.4100 ####[facility] [address] [place], [address] Sodium [Moles/Vol] 139 mmol/L Normal 133-145 [facility] Comment on above: Performed By: #### L 500.2500, L506.1001, L500.4100 ####[facility] [address] [place], [address] Urea nitrogen [Mass/Vol] 24 mg/dL High 4-[address] [facility] Comment on above: Performed By: #### L 500.2500, L506.1001, L500.4100 ####[facility] [address] [place], [address] Calculated very low density lipoprotein (VLDL) cholesterol measurementOrdered By: Melba Philippe on 01-11-2025 Calculated very low density lipoprotein (VLDL) cholesterol measurement 13 mg/dL 5-[address] [facility] Carbon dioxide, total [Moles /volume] in Central venous bloodOrdered By: Melba Philippe on 01-11-2025 CO2 [Moles/Vol] 20.3 mmol/L Low 21.0-32.[address] [facility] Chloride assayOrdered By: Avery Philippe on 01-11-2025 Chloride [Moles/Vol] 109 mmol/L High 98-108 [facility] Glomerular filtration rate ( GFR) estimation/1.73 sq m using serum, plasma, or whole bOrdered By: Melba Philippe on 01-11-2025 GFR/1.73 sq M.predicted among non-blacks MDRD (S/P/Bld) [Vol rate/Area] 51 mL/min/{1.73_m2} Low >60 [facility] Comment on above: mL/min/1.73m2 CKD-EP I Creatinine Equation (2020) LDL calc ser/plasOrdered By: Melba Philippe on 01-11-2025 Cholesterol in LDL [Mass/Vol] 98 mg/dL [facility] Comment on above: Skjujzphlw=064-876 m g/dL & Higher Htcv=740 mg/dL or greater Lipid Profileon 01-11-2025 CHOL:HDL 3.[address] [facility] Comment on above: Performed By: #### L 500.2500, L506.1001, L500.4100 ####[facility] [address] [place], [address] Cholesterol [Mass/Vol] 161 mg/dL Normal <=200 [facility] Comment on above: Result Comment: Chol esterol level, Desirable <200 mg/dLBorderline high cholesterol 200-239 mg/dLHigh cholesterol >=240 mg/dLRecommendations of the NCEP Adult Treatment Panel for thefollowing risk-cutoff thresholds for the [place] [facility] center[facility]. Performed By: #### L 500.2500, L506.1001, L500.4100 ####[facility] [address] [place], [address] Cholesterol in HDL [Mass/Vol] 51 mg/dL Normal [facility] Comment on above: Result Comment: Ivone onal Cholesterol Education Program (NCEP) guidelines:<40 mg/dL: Low HDL-cholesterol (major risk factor for CHD)>= 60 mg/dL: High HDL-cholesterol (negative risk factor forCHD)HDL-cholesterol is affected by a number of factors, e.g.smoking, exercise, hormones, sex and age. Performed By: #### L 500.2500, L506.1001, L500.4100 ####[facility] [address] [place], [address] Cholesterol in LDL [Mass/Vol] 98 mg/dL Normal [facility] Comment on above: Result Comment: Bord mfazzw=029-794 mg/dL Higher Nmig=232 mg/dL or greater Performed By: #### L 500.2500, L506.1001, L500.4100 ####[facility] [address] [place], [address] Cholesterol in VLDL [Mass/Vol] 13 mg/dL Normal 5-[address] [facility] Comment on above: Performed By: #### L 500.2500, L506.1001, L500.4100 ####[facility] [address] [place], [address] Triglyceride [Mass/Vol] 63 mg/dL Normal [facility] Comment on above: Result Comment: The drugs N-Acetylcysteine and Metamizole may falselydepress this assay.Normal range: <150 mg/dLBorderline High: 150-199 mg/dLHigh: 200-499 mg/dLVery High: >500 mg/dL Performed By: #### L 500.2500, L506.1001, L500.4100 ####[facility] [address] [place], [address] Microalb:Creat Ratio,Random URon 01-11-2025 Creatinine [Mass/Vol] 46.90 mg/dL Normal 28.00-217.[address] [facility] Comment on above: Performed By: #### L 502.0250 ####[facility] [address] [place], [address] MALB:CREAT UNABLE TO CALCULATE Normal [facility] Comment on above: Performed By: #### L 502.0250 ####[facility] [address] [place], [address] MICROALBUMIN,UR < 12.0 Normal NO RANGE EST. [facility] Comment on above: Performed By: #### L 502.0250 ####[facility] [address] [place], [address] Microalbumin/creat ratio urO rdered By: Melba Philippe on 01-11-2025 Urine microalbumin/creatinine ratio measurement UNABLE TO CALCULATE mg/g CRE [facility] Potassium measurement (mass/ volume)Ordered By: Melba Philippe on 01-11-2025 Potassium (Unsp spec) [Mass/Vol] 4.2 mmol/L 3.3-5.[address] [facility] Random urine creatinine alexa urement (mass/volume)Ordered By: Melba Philippe on 01-11-2025 Creatinine Unsp time (U) [Mass/Vol] 46.90 mg/dL 28.00-217.[address] [facility] Screening total cholesterol/ high density lipoprotein (HDL) cholesterol ratioOrdered By: Melba Philippe on 01-11-2025 Cholesterol.total/Cholest candice in HDL [Mass ratio] 3.18 {ratio} [facility] Serum creatinine measurement (mass/volume)Ordered By: Melba Philippe on 01-11-2025 Creatinine [Mass/Vol] 1.09 mg/dL 0.70-1.20 [facility] Serum glucose measurement (m ass/volume)Ordered By: Melba Philippe on 01-11-2025 Glucose [Mass/Vol] 89 mg/dL 70-99 [facility] Serum or plasma calcium alexa urement (mass/volume)Ordered By: Melba Philippe on 01-11-2025 Calcium [Mass/Vol] 9.2 mg/dL 7.6-11.0 [facility] Serum or plasma cholesterol in HDL measurement (mass/volume)Ordered By: Melba Philippe on 01-11-2025 Cholesterol in HDL [Mass/Vol] 51 mg/dL >[address] [facility] Comment on above: National Cholesterol Education Program (NCEP) guidelines:<40 mg/dL: Low HDL-cholesterol (major risk factor for CHD)>= 60 mg/dL: High HDL-cholesterol (negative risk factor for CHD)HDL-cholesterol is affected by a number of factors, e.g. smoking, exercise, hormones, sex and age. Serum or plasma cholesterol measurement (mass/volume)Ordered By: Melba Philippe on 01-11-2025 Cholesterol [Mass/Vol] 161 mg/dL <201 [facility] Comment on above: Cholesterol level, D esirable <200 mg/dLBorderline high cholesterol 200-239 mg/dLHigh cholesterol >=240 mg/dLRecommendations of the NCEP Adult Treatment Panel for the following risk-cutoff thresholds for the [place] population. Serum or plasma urea nitroge n measurement (mass/volume)Ordered By: Melba Philippe on 01-11-2025 Urea nitrogen [Mass/Vol] 24 mg/dL High 4-[address] [facility] Sodium levelOrdered By: Shabnam Philippe on 01-11-2025 Sodium [Moles/Vol] 139 mmol/L 133-145 [facility] Triglycerides measurementOrd ered By: Melba Philippe on 01-11-2025 Triglyceride [Mass/Vol] 63 mg/dL <199 [facility] Comment on above: The drugs N-Acetylcy steine and Metamizole may falsely depress this assay. Normal range: <150 mg/dLBorderline High: 150-199 mg/dLHigh: 200-499 mg/dLVery High: >500 mg/dL Urine albumin measurement [facility] detection limit of 20 mg/L or less (mass/volume)Ordered By: Melba Philippe on 01-11-2025 Albumin DL <= 20 mg/L (U) [Mass/Vol] < 12.0 mg/L NO RANGE EST. [facility] Vitamin D,25 Hydroxyon 01-11 Vitamin D 25-OH 15.3 ng/mL Low 30-[address] [facility] Comment on above: Result Comment: Светлана min D StatusDeficiency: <20 ng/mL (50nmol/L)Insufficiency: 20-30 ng/mL (50-75 nmol/L)Sufficiency: 30-100 ng/mL (75-250 nmol/L)Toxicity: >100 ng/mL (>250 nmol/L) Performed By: #### L 500.2500, L506.1001, L500.4100 ####[facility] [address] [place], [address] Echocardiogram study reportO rdered By: Hadley Jimenez on 12-21-2024 Study report [facility] [address] [place] [address] Echo Complete 12/20/24 1354 MR#: [id number] Acct: [id number] Name: DERIC MERIDA Rep #:[id number] : 1945 79 From: Hadley Jimenez MD Attending Dr: Dr. Hadley Jimenez MD Status: REG CLI Ordering Dr: Hadley Jimenez MD Date: Location: [facility] Sex: F C Admitted: Reason For Study Reason For Study: Chest Pain Procedure This was a 2D Doppler, Color Flow transthoracic echocardiogram. Exam performed in department. Left Ventricle Normal size and thickness. The LV systolic function is normal. EF is 65 %. Normal diastololic function. Right Ventricle Normal right ventricle. Atria The left atrium is mildly enlarged. Normal right atrium. Mitral Valve Mild focal mitral valve calcification. Trivial mitral valve insufficiency. Tricuspid Valve Mild tricuspid valve insufficiency. Normal pulmonary artery pressure. Aortic Valve Trisinus/trileaflet aortic valve. Pulmonic Valve The pulmonic valve is not well visualized. Great Vessels Normal sized aortic root. Pericardium/Pleural No pericardial effusion. MMode/2D Measurements & Calculations LVIDd: 4.5 cm IVSd: 0.99 cm Ao root diam: 3.4 cm LVIDs: 2.5 cm LVPWd: 1.1 cm RVDd: 4.3 cm FS: 44.9 % LAV(MOD-bp): 61.9 ml LVAd ap4: 30.7 cm2 SV(MOD-sp4): 61.4 ml LAV(MOD-bp) Indexed: 32.7 ml/m2 LVLd ap4: 7.8 cm SI(MOD-sp4): 32.4 ml/m2 LAV(MOD-sp2): 64.2 ml EDV(MOD-sp4): 95.0 ml LAV(MOD-sp4): 57.6 ml EDV(sp4-el): 103.1 ml LVAs ap4: 16.2 cm2 LVLs ap4: 6.5 cm ESV(MOD-sp4): 33.6 ml ESV(sp4-el): 34.0 ml EF(MOD-sp4): 64.6 % EF(sp4-el): 67.0 % SV(sp4-el): 69.1 ml LA A4 area: 20.5 cm2 LA dimension(2D): 3.4 cm RA A4 area: 15.7 cm2 TAPSE: 1.8 cm Time Measurements MV dec time: 0.24 sec Doppler Measurements & Calculations MV E max cuate: 79.6 cm/sec Lat Peak E' Cuate: 12.3 cm/sec Med Peak E' Cuate: 8.3 cm/sec MV A max cuate: 88.2 cm/sec E/E' lat: 6.5 E/E' med: 9.6 MV E/A: 0.90 MV V2 max: 98.9 cm/sec MV P1/2t max cuate: 93.3 cm/sec Ao V2 max: 151.4 cm/sec MV max P.9 mmHg MV P1/2t: 87.5 msec Ao max P.2 mmHg MV V2 mean: 54.9 cm/sec Ao V2 mean: 106.1 cm/sec MV mean P.4 mmHg MV dec slope: 312.1 cm/sec2 Ao mean P.1 mmHg MV V2 VTI: 41.7 cm MVA(P1/2t): 2.5 cm2 Ao V2 VTI: 38.5 cm AV (velocity ratio): 0.77 LV V1 max: 120.1 cm/sec MR max cuate: 509.0 cm/sec PA V2 max: 93.4 cm/sec LV V1 max P.8 mmHg MR max P.6 mmHg LV V1 mean P.0 mmHg LV V1 mean: 81.2 cm/sec LV V1 VTI: 29.6 cm TR max cuate: 244.0 cm/sec TR max P.8 mmHg ECHO/Echo Complete Interpretation Summary The LV systolic function is normal. EF is 65 %. The left atrium is mildly enlarged. Mild focal mitral valve calcification. Mild tricuspid valve insufficiency. Ordering Physician: Hadley Jimenez Referring Physician: Melba Philippe Performed By: David Phan RCS 12/21/24 1538 Date _ Hadley Jimenez MD CC: Dr. Hadley Jimenez MD; Dr. 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 Work Phone: Echo Completeon 12-20-2024 Echo Complete Normal [facility] Calculated very low density lipoprotein (VLDL) cholesterol measurementOrdered By: Hadley Jimenez on 12-08-2024 Calculated very low density lipoprotein (VLDL) cholesterol measurement 12 mg/dL 5-[address] [facility] VLDL Cholesterol 12 mg/dL 5-[address] [facility] Cardiology Visit Reporton Cardiology Visit Report Normal [facility] LDL calc ser/plasOrdered By: Hadley Jimenez on 12-08-2024 Cholesterol in LDL [Mass/Vol] 110 mg/dL [facility] Comment on above: Ucfzelubkw=307-868 m g/dL & Higher Rjil=566 mg/dL or greater LDL Cholesterol, Calculated 110 mg/dL [facility] Comment on above: Xszwjesifv=137-101 m g/dL & Higher Ggxx=836 mg/dL or greater Lipid Profileon 12-08-2024 CHOL:HDL 3.[address] [facility] Comment on above: Performed By: #### L 500.4100 ####[facility] [address] [place], [address] Cholesterol [Mass/Vol] 183 mg/dL Normal <=200 [facility] Comment on above: Result Comment: Chol esterol level, Desirable <200 mg/dLBorderline high cholesterol 200-239 mg/dLHigh cholesterol >=240 mg/dLRecommendations of the NCEP Adult Treatment Panel for thefollowing risk-cutoff thresholds for the [place] American[place]. Performed By: #### L 500.4100 ####[facility] [address] [place], [address] Cholesterol in HDL [Mass/Vol] 61 mg/dL Normal [facility] Comment on above: Result Comment: Ivone onal Cholesterol Education Program (NCEP) guidelines:<40 mg/dL: Low HDL-cholesterol (major risk factor for CHD)>= 60 mg/dL: High HDL-cholesterol (negative risk factor forCHD)HDL-cholesterol is affected by a number of factors, e.g.smoking, exercise, hormones, sex and age. Performed By: #### L 500.4100 ####[facility] [address] [place], [address] Cholesterol in LDL [Mass/Vol] 110 mg/dL Normal [facility] Comment on above: Result Comment: Bord uznieb=719-059 mg/dL Higher Ahxu=222 mg/dL or greater Performed By: #### L 500.4100 ####[facility] [address] [place], [address] Cholesterol in VLDL [Mass/Vol] 12 mg/dL Normal 5-[address] [facility] Comment on above: Performed By: #### L 500.4100 ####[facility] [address] [place], [address] Triglyceride [Mass/Vol] 61 mg/dL Normal [facility] Comment on above: Result Comment: The drugs N-Acetylcysteine and Metamizole may falselydepress this assay.Normal range: <150 mg/dLBorderline High: 150-199 mg/dLHigh: 200-499 mg/dLVery High: >500 mg/dL Performed By: #### L 500.4100 ####[facility] [address] [place], [address] Screening total cholesterol/ high density lipoprotein (HDL) cholesterol ratioOrdered By: Hadley Jimenez on 12-08-2024 Cholesterol.total/Cholest candice in HDL [Mass ratio] 3.00 {ratio} [facility] Serum or plasma cholesterol in HDL measurement (mass/volume)Ordered By: Hadley Jimenez on 12-08-2024 Cholesterol in HDL [Mass/Vol] 61 mg/dL >[address] [facility] Comment on above: National Cholesterol Education Program (NCEP) guidelines:<40 mg/dL: Low HDL-cholesterol (major risk factor for CHD)>= 60 mg/dL: High HDL-cholesterol (negative risk factor for CHD)HDL-cholesterol is affected by a number of factors, e.g. smoking, exercise, hormones, sex and age. Serum or plasma cholesterol measurement (mass/volume)Ordered By: Hadley Jimenez on 12-08-2024 Cholesterol [Mass/Vol] 183 mg/dL <201 [facility] Comment on above: Cholesterol level, D esirable <200 mg/dLBorderline high cholesterol 200-239 mg/dLHigh cholesterol >=240 mg/dLRecommendations of the NCEP Adult Treatment Panel for the following risk-cutoff thresholds for the [place] population. Triglycerides measurementOrd ered By: Hadley Jimenez on 12-08-2024 Triglyceride [Mass/Vol] 61 mg/dL <199 [facility] Comment on above: The drugs N-Acetylcy steine and Metamizole may falsely depress this assay. Normal range: <150 mg/dLBorderline High: 150-199 mg/dLHigh: 200-499 mg/dLVery High: >500 mg/dL OCT OPTIC NERVE CIRRUS OU (B OTH EYES)on 12-01-2024 [facility] Radiology Study observation (narrative) Braydon Lucas VISUAL FIELD 24-2 OU (BOTH E YES)on 12-01-2024 [facility] Radiology Study observation (narrative) Braydon Lucas Internal Medicine Office Vis iton 11-11-2024 Internal Medicine Office Visit Normal [facility] 12 Lead EKGon 11-08-2024 12 Lead EKG Normal [facility] Bone density reportOrdered B y: Julio C Sal on 11-08-2024 Study report Skeletal system DXA [facility] Imaging Services [address] [place] [address] Dexa Bone Density Study MR#: [id number] Acct: [id number] Name: DERIC MERIDA Rep #: [id number] : 1945 F 79 From: Lauryn Sal MD PCP: Dr. Melba Philippe MD Status: R EG CLI Study:Dexa Bone Density Study Date of Exam: 11/08/24 Exam# [id number] Ordering Dr: Roland Philippe MD PROCEDURE: DEXA BONE DENSITY STUDY REASON FOR EXAM: F, age 79 y/o . TECHNIQUE: DEXA scan of the lumbar spine and bilateral hips. COMPARISON: None. FINDINGS: T-SCORES Lumbar spine: -2.0 (BMD 0.836) Left hip: Negative 1.8 (BMD 716) Right hip: -1.8 (BMD 0.728) Right hip FRAX* Results: 10 Year Probability of Fracture: Hip Fracture(1): 7.8% Major Osteoporotic Fracture(2): 22% Left hip FRAX* Results: 10 Year Probability of Fracture: Hip Fracture(1): 6.8% Major Osteoporotic Fracture(2): 26% *FRAX is a trademark of the [employer]'s [employer] for Metabolic Bone Disease, World Health Organization (WHO) Collaborating [employer]. 1-The 10-year probability of fracture may be lower than reported if the patient has received treatment. 2-Major Osteoporotic Fracture: Clinical Spine, Forearm, Hip or Shoulder. The T-scores are also available for review on the [facility] PACS or by accessing the [facility] electronic medical record. BD/Dexa Bone Density Study IMPRESSION: Osteopenia of the lumbar spine and bilateral hips. Reading [facility] CC: Dr. 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 Dexa Bone Density Studyon Dexa Bone Density Study Normal [facility] Electrocardiogram reportOrde red By: Jeronimo Graham on 11-08-2024 EKG study [facility] Cardiovascular Services [address] [place] [address] 12 Lead EKG 11/08/24 0813 MR#: [id number] Acct: [id number] Name: DERIC MERIDA Rep #:[id number] : 1945 79 From: Jeronimo shaw MD Attending Dr: Dr. Melba Philippe MD Status: REG CLI Ordering Dr: Melba Philippe MD Date: 11/08/24 Location: [facility]BD Sex: F C Admitted: Test Reason : DYSPNEA, WEAKNESS Blood Pressure : */* mmHG Vent. Rate : 84 BPM Atrial Rate : 84 BPM P-R Int : 180 ms QRS Dur : 92 ms QT Int : 392 ms P-R-T Axes : 52 40 39 degrees QTcB Int : 463 ms Normal sinus rhythm Normal ECG Confirmed by Jeronimo Graham ([id number]), assignment desk editor CIARRA HAQUE ([id number]) on 11/08/2024 10:38:41 AM Referred By: Melba Philippe Confirmed By: Jeronimo Graham 11/08/24 1038 Date _ Jeronimo Graham MD CC: Dr. Melba Philippe MD ~ Signed [facility] Work Phone: VISUAL FIELD 24-2 OU (BOTH E YES)on 11-03-2024 [facility] Radiology Study observation (narrative) Braydon suero [facility] Comprehensive Metabolic Prof ilon 11-02-2024 Albumin [Mass/Vol] 4.0 g/dL Normal 3.4-4.8 [facility] Comment on above: Performed By: #### L 500.4050 ####[facility] [address] [place], [address] Albumin/Globulin [Mass ratio] 1.6 {ratio} Normal 0.9-2.[address] [facility] Comment on above: Performed By: #### L 500.4050 ####[facility] [address] [place], [address] ALK PHOS 62 U/L Normal 35-[address] [facility] Comment on above: Performed By: #### L 500.4050 ####[facility] [address] [place], [address] ALT [Catalytic activity/Vol] 25 U/L Normal <=[address] [facility] Comment on above: Performed By: #### L 500.4050 ####[facility] [address] [place], [address] Anion gap [Moles/Vol] 14 mmol/L Normal 5-15 [facility] Comment on above: Performed By: #### L 500.4050 ####[facility] [address] [place], [address] AST [Catalytic activity/Vol] 36 U/L High <=[address] [facility] Comment on above: Performed By: #### L 500.4050 ####[facility] [address] [place], [address] Bilirubin [Mass/Vol] 0.28 mg/dL Normal 0.00-1.30 [facility] Comment on above: Performed By: #### L 500.4050 ####[facility] [address] [place], [address] BUN/CRE 24.1 RATIO High 10-[address] [facility] Comment on above: Performed By: #### L 500.4050 ####[facility] [address] [place], [address] Calcium [Mass/Vol] 9.1 mg/dL Normal 7.6-11.0 [facility] Comment on above: Performed By: #### L 500.4050 ####[facility] [address] [place], [address] Chloride [Moles/Vol] 107 mmol/L Normal 96-108 [facility] Comment on above: Performed By: #### L 500.4050 ####[facility] [address] [place], [address] CO2 [Moles/Vol] 19.9 mmol/L Low 22.0-29.[address] [facility] Comment on above: Performed By: #### L 500.4050 ####[facility] [address] [place], [address] Creatinine [Mass/Vol] 1.0 mg/dL Normal 0.6-1.0 [facility] Comment on above: Performed By: #### L 500.4050 ####[facility] [address] [place], [address] GFR/1.73 sq M.predicted among non-blacks MDRD (S/P/Bld) [Vol rate/Area] 58 mL/min/{1.73_m2} Low >60 [facility] Comment on above: Result Comment: mL/m in/1.73m2 CKD-EPI Creatinine Equation (2020) Performed By: #### L 500.4050 ####[facility] [address], [address] Globulin (S) [Mass/Vol] 2.4 g/dL Normal 2.2-4.2 [facility] Comment on above: Performed By: #### L 500.4050 ####[facility] [address] [place], [address] Glucose [Mass/Vol] 80 mg/dL Normal 70-99 [facility] Comment on above: Performed By: #### L 500.4050 ####[facility] [address], [address] Potassium [Moles/Vol] 4.4 mmol/L Normal 3.3-5.1 [facility] Comment on above: Performed By: #### L 500.4050 ####[facility] [address] [place], [place], [address] Sodium [Moles/Vol] 141 mmol/L Normal 133-145 [facility] Comment on above: Performed By: #### L 500.4050 ####[facility] [address] [place], [place], [address] T PROT 6.4 g/dL Normal 5.9-8.[address] [facility] Comment on above: Performed By: #### L 500.4050 ####[facility] [address] [place], [place], [address] Urea nitrogen [Mass/Vol] 24 mg/dL High 4-[address] [facility] Comment on above: Performed By: #### L 500.4050 ####[facility] [address] [place], [place], [address] Absolute lymphocyte countOrd ered By: Edie Ham on 11-01-2024 Lymphocytes Auto (Unsp spec) [#/Vol] 1.22 10*3/uL 0.83-4.[address] [facility] Absolute neutrophil countOrd ered By: Edie Ham on 11-01-2024 Neutrophils (Bld) [#/Vol] 2.9 10*3/uL 2.0-7.[address] [facility] Automated lymphocyte count a s percentage of total leukocytesOrdered By: Edie Ham on 11-01-2024 Lymphocytes/100 WBC Auto (Unsp spec) 26.1 % 19-[address] [facility] BUN/creatinine ratioOrdered By: Edie Ham on 11-01-2024 Urea nitrogen/Creatinine [Mass ratio] 24.1 mg/mg High 10-[address] [facility] Basophil percentageOrdered B y: Edie Ham on 11-01-2024 Basophils/100 WBC (Bld) 0.6 % 0-1 [facility] Bilirubin, totalOrdered By: Edie Ham on 11-01-2024 Bilirubin [Mass/Vol] 0.28 mg/dL 0.00-1.30 [facility] CBC W/Diff, Automatedon 02-2 Absolute Lymph 1.22 X10 3/uL Normal 0.83-4.[address] [facility] Comment on above: Performed By: #### L 100.0100, L500.4050 ####[facility] [address], [address] Absolute Neut 2.9 X10 3/uL Normal 2.0-7.[address] [facility] Comment on above: Performed By: #### L 100.0100, L500.4050 ####[facility] [address] [place], [address] Basophils/100 WBC (Bld) 0.6 % Normal 0-1 [facility] Comment on above: Performed By: #### L 100.0100, L500.4050 ####[facility] [address], [address] Eosinophils/100 WBC (Bld) 2.4 % Normal 0-[address] [facility] Comment on above: Performed By: #### L 100.0100, L500.4050 ####[facility] [address] [place], [address] Erythrocyte distribution width (RBC) [Ratio] 13.9 % Normal 11.6-14.[address] [facility] Comment on above: Performed By: #### L 100.0100, L500.4050 ####[facility] [address] [place], [address] Hematocrit (Bld) [Volume fraction] 37.4 % Normal 37-[address] [facility] Comment on above: Performed By: #### L 100.0100, L500.4050 ####[facility] [address] [place], [address] Hemoglobin (Bld) [Mass/Vol] 11.8 g/dL Low 12.0-15.[address] [facility] Comment on above: Performed By: #### L 100.0100, L500.4050 ####[facility] [address] [place], [address] IG% 0.200 Normal 0.0-0.[address] [facility] Comment on above: Result Comment: IG% - Immature Granulocytes (promyelocytes, myelocytes andmetamyelocytes) > 1% indicates that a LEFT SHIFT is Present. Performed By: #### L 100.0100, L500.4050 ####[facility] [address] [place], [address] Lymphocytes/100 WBC (Bld) 26.1 % Normal 19-[address] [facility] Comment on above: Performed By: #### L 100.0100, L500.4050 ####[facility] [address] [place], [address] MCH (RBC) [Entitic mass] 28.2 pg Normal 27.0-32.[address] [facility] Comment on above: Performed By: #### L 100.0100, L500.4050 ####[facility] [address] [place], [address] MCHC (RBC) [Mass/Vol] 31.6 g/dL Low 32-36 [facility] Comment on above: Performed By: #### L 100.0100, L500.4050 ####[facility] [address] [place], [address] MCV (RBC) [Entitic vol] 89.3 fL Normal 81-99 [facility] Comment on above: Performed By: #### L 100.0100, L500.4050 ####[facility] [address] [place], [address] Monocytes/100 WBC (Bld) 8.8 % Normal 0-10 [facility] Comment on above: Performed By: #### L 100.0100, L500.4050 ####[facility] [address] [place], [address] Neutrophils/100 WBC (Bld) 61.9 % Normal 47-[address] [facility] Comment on above: Performed By: #### L 100.0100, L500.4050 ####[facility] [address] [place], [address] Nucleated RBC (Bld) [#/Vol] 0 10*3/uL Normal 0-[address] [facility] Comment on above: Performed By: #### L 100.0100, L500.4050 ####[facility] [address] [place], [address] Platelet mean volume (Bld) [Entitic vol] 11.7 fL Normal 6.2-12.[address] [facility] Comment on above: Performed By: #### L 100.0100, L500.4050 ####[facility] [address] [place], [address] Platelets (Bld) [#/Vol] 172 10*3/uL Normal 150-[address] [facility] Comment on above: Performed By: #### L 100.0100, L500.4050 ####[facility] [facility] [address] [place], [address] RBC (Bld) [#/Vol] 4.19 10*6/uL Low 4.2-5.4 [facility] Comment on above: Performed By: #### L 100.0100, L500.4050 ####[facility] [address] [place], [address] RDW SD 45.4 fl High 35.1-43.[address] [facility] Comment on above: Performed By: #### L 100.0100, L500.4050 ####[facility] [address] [place], [address] WBC (Bld) [#/Vol] 4.7 10*3/uL Normal 4.4-11.0 [facility] Comment on above: Performed By: #### L 100.0100, L500.4050 ####[facility] [address] [place], [address] Carbon dioxide measurementOr dered By: Edie Ham on 11-01-2024 CO2 [Moles/Vol] 19.9 mmol/L Low 22.0-29.[address] [facility] Chloride measurementOrdered By: Edie Ham on 11-01-2024 Chloride [Moles/Vol] 107 mmol/L 96-108 [facility] Comprehensive Metabolic Prof ilon 11-01-2024 ALB Normal 3.2-5.[address] [facility] Comment on above: Result Comment: PUTT ING UNDER DIFFERENT REQ Performed By: #### L 100.0100, L500.4050 ####[facility] [address] [place], [address] ALK PHOS Normal 45-[address] [facility] Comment on above: Result Comment: PUTT ING UNDER DIFFERENT REQ Performed By: #### L 100.0100, L500.4050 ####[facility] [address] [place], [address] ALT Normal 13-[address] [facility] Comment on above: Result Comment: PUTT ING UNDER DIFFERENT REQ Performed By: #### L 100.0100, L500.4050 ####[facility] [address] [place], [address] AST Normal 15-[address] [facility] Comment on above: Result Comment: PUTT ING UNDER DIFFERENT REQ Performed By: #### L 100.0100, L500.4050 ####[facility] [address] [place], [address] BUN Normal 4-[address] [facility] Comment on above: Result Comment: PUTT ING UNDER DIFFERENT REQ Performed By: #### L 100.0100, L500.4050 ####[facility] [address] [place], [address] BUN/CRE Normal 10-[address] [facility] Comment on above: Result Comment: PUTT ING UNDER DIFFERENT REQ Performed By: #### L 100.0100, L500.4050 ####[facility] [address] [place], [address] Calcium Normal 8.5-10.[address] [facility] Comment on above: Result Comment: PUTT ING UNDER DIFFERENT REQ Performed By: #### L 100.0100, L500.4050 ####[facility] [address] [place], [address] CL Normal 98-[address] [facility] Comment on above: Result Comment: PUTT ING UNDER DIFFERENT REQ Performed By: #### L 100.0100, L500.4050 ####[facility] [address] [place], [address] CO2 Normal 21.0-32.[address] [facility] Comment on above: Result Comment: PUTT ING UNDER DIFFERENT REQ Performed By: #### L 100.0100, L500.4050 ####[facility] [address] [place], [address] CREAT,SERUM Normal 0.6-1.[address] [facility] Comment on above: Result Comment: PUTT ING UNDER DIFFERENT REQ Performed By: #### L 100.0100, L500.4050 ####[facility] [address] [place], [address] eGFR Normal >[address] [facility] Comment on above: Result Comment: PUTT ING UNDER DIFFERENT REQ Performed By: #### L 100.0100, L500.4050 ####[facility] [address] [place], [address] GAP Normal 5-[address] [facility] Comment on above: Result Comment: PUTT ING UNDER DIFFERENT REQ Performed By: #### L 100.0100, L500.4050 ####[facility] [address] [place], [address] GLU Normal 70-[address] [facility] Comment on above: Result Comment: PUTT ING UNDER DIFFERENT REQ Performed By: #### L 100.0100, L500.4050 ####[facility] [address] [place], [address] Potassium Normal 3.5-5.[address] [facility] Comment on above: Result Comment: PUTT ING UNDER DIFFERENT REQ Performed By: #### L 100.0100, L500.4050 ####[facility] [address] [place], [address] T BILI Normal 0.20-1.[address] [facility] Comment on above: Result Comment: PUTT ING UNDER DIFFERENT REQ Performed By: #### L 100.0100, L500.4050 ####[facility] [address] [place], [address] T PROT Normal 6.4-8.[address] [facility] Comment on above: Result Comment: PUTT ING UNDER DIFFERENT REQ Performed By: #### L 100.0100, L500.4050 ####[facility] [address] [place], [address] Comprehensive Metabolic Profil Normal 136-[address] [facility] Comment on above: Result Comment: PUTT ING UNDER DIFFERENT REQ Performed By: #### L 100.0100, L500.4050 ####[facility] [address] [place], [address] Creatinine [Moles/Vol]Ordere d By: Edie Ham on 11-01-2024 Creatinine [Mass/Vol] 1.0 mg/dL 0.6-1.0 [facility] Eosinophil percentageOrdered By: Edie Ham on 11-01-2024 Eosinophils/100 WBC (Bld) 2.4 % 0-[address] [facility] Erythrocyte distribution wid th ratioOrdered By: Edie Ham on 11-01-2024 Erythrocyte distribution width (RBC) [Ratio] 13.9 % 11.6-14.[address] [facility] Erythrocyte distribution wid th standard deviationOrdered By: Edie Ham on 11-01-2024 Erythrocyte distribution width (RBC) [Entitic vol] 45.4 fL High 35.1-43.9 [facility] Erythrocyte distribution width (RBC) [Ratio] 45.4 fl High 35.1-43.[address] [facility] GFR/1.73 sq M.predicted renae g non-blacks MDRD (S/P/Bld) [Vol rate/Area]Ordered By: Edie Ham on 11-01-2024 Estimated GFR (MDRD) Non-Af Amer 58 Low >[address] [facility] Comment on above: mL/min/1.73m2 CKD-EP I Creatinine Equation (2020) Glomerular filtration rate ( GFR) estimation/1.73 sq m using serum, plasma, or whole bOrdered By: Edie Ham on 11-01-2024 GFR/1.73 sq M.predicted among non-blacks MDRD (S/P/Bld) [Vol rate/Area] 58 mL/min/{1.73_m2} Low >60 [facility] Comment on above: mL/min/1.73m2 CKD-EP I Creatinine Equation (2020) Hematocrit Auto (Bld) [Volum e fraction]Ordered By: Edie aHm on 11-01-2024 Hematocrit (Bld) [Volume fraction] 37.4 % 37-[address] [facility] Hemoglobin measurementOrdere d By: Edie Ham on 11-01-2024 Hemoglobin (Bld) [Mass/Vol] 11.8 g/dL Low 12.0-15.[address] [facility] Immature granulocytes/100 WB C Auto (Bld)Ordered By: Edie Ham on 11-01-2024 Immature granulocytes/100 WBC (Bld) 0.200 % 0.0-0.[address] [facility] Comment on above: IG% - Immature Granu locytes (promyelocytes, myelocytes and metamyelocytes) > 1% indicates that a LEFT SHIFT is Present. Laboratory - Chemistry and C hemistry - challengeOrdered By: Edie Ham on 11-01-2024 AST [Catalytic activity/Vol] 36 U/L High <[address] [facility] Lymphocytes Auto (Unsp spec) [#/Vol]Ordered By: Edie Ham on 11-01-2024 Lymphocytes (Bld) [#/Vol] 1.22 10*3/uL 0.83-4.[address] [facility] Lymphocytes/100 WBC Auto (Un sp spec)Ordered By: Edie Ham on 11-01-2024 Lymphocytes/100 WBC (Bld) 26.1 % 19-[address] [facility] MCV (mean corpuscular volume ) determinationOrdered By: Edie Ham on 11-01-2024 MCV (RBC) [Entitic vol] 89.3 fL 81-99 [facility] Mean corpuscular hemoglobin (MCH) determinationOrdered By: Edie Ham on 11-01-2024 MCH (RBC) [Entitic mass] 28.2 pg 27.0-32.[address] [facility] Mean corpuscular hemoglobin concentration (MCHC) determinationOrdered By: Edie Ham on 11-01-2024 MCHC (RBC) [Mass/Vol] 31.6 g/dL Low 32-36 [facility] Mean platelet volume determi nationOrdered By: Edie Ham on 11-01-2024 Platelet mean volume (Bld) [Entitic vol] 11.7 fL 6.2-12.[address] [facility] Monocyte percentageOrdered B y: Edie Ham on 11-01-2024 Monocytes/100 WBC (Bld) 8.8 % 0-10 [facility] Neutrophil percentageOrdered By: Edie Ham on 11-01-2024 Neutrophils/100 WBC (Bld) 61.9 % 47-[address] [facility] Nucleated red blood cell per centageOrdered By: Edie Ham on 11-01-2024 Nucleated RBC/100 WBC (Bld) [Ratio] 0 % 0-[address] [facility] Platelet countOrdered By: Kylee Ham on 11-01-2024 Platelets (Bld) [#/Vol] 172 10*3/uL 150-[address] [facility] RBC Auto (Bld) [#/Vol]Ordere d By: Edie Ham on 11-01-2024 RBC (Bld) [#/Vol] 4.19 10*6/uL Low 4.2-5.4 [facility] Serum globulin measurementOr dered By: Edie Ham on 11-01-2024 Globulin (S) [Mass/Vol] 2.4 g/dL 2.2-4.2 [facility] Serum glucose measurement (m ass/volume)Ordered By: Edie Ham on 11-01-2024 Glucose [Mass/Vol] 80 mg/dL 70-99 [facility] Serum or plasma alanine lubin otransferase (ALT) measurementOrdered By: Edie Ham on 11-01-2024 ALT [Catalytic activity/Vol] 25 U/L <[address] [facility] Serum or plasma albumin alexa urement (mass/volume)Ordered By: Edie Ham on 11-01-2024 Albumin [Mass/Vol] 4.0 g/dL 3.4-4.8 [facility] Serum or plasma albumin/glob ulin mass ratioOrdered By: Edie Ham on 11-01-2024 Albumin/Globulin [Mass ratio] 1.6 {ratio} 0.9-2.[address] [facility] Serum or plasma alkaline asif sphatase measurementOrdered By: Edie Ham on 11-01-2024 ALP [Catalytic activity/Vol] 62 U/L 35-[address] [facility] Serum or plasma anion gap de termination (moles/volume)Ordered By: Edie Ham on 11-01-2024 Anion gap [Moles/Vol] 14 mmol/L 5-15 [facility] Serum or plasma calcium alexa urement (mass/volume)Ordered By: Edie Ham on 11-01-2024 Calcium [Mass/Vol] 9.1 mg/dL 7.6-11.0 [facility] Serum or plasma creatinine m easurement (moles/volume)Ordered By: Edie Ham on 11-01-2024 Creatinine [Moles/Vol] 1.0 mg/dL 0.6-1.0 [facility] Serum or plasma potassium me asurementOrdered By: Edie Ham on 11-01-2024 Potassium [Moles/Vol] 4.4 mmol/L 3.3-5.1 [facility] Serum or plasma sodium measu rement (moles/volume)Ordered By: Edie Ham on 11-01-2024 Sodium [Moles/Vol] 141 mmol/L 133-145 [facility] Serum or plasma urea nitroge n measurement (mass/volume)Ordered By: Edie Ham on 11-01-2024 Urea nitrogen [Mass/Vol] 24 mg/dL High 4-[address] [facility] Total proteinOrdered By: Galileo Ham on 11-01-2024 Protein [Mass/Vol] 6.4 g/dL 5.9-8.4 [facility] White blood cell (WBC) count Ordered By: Edie Ham on 11-01-2024 WBC (Bld) [#/Vol] 4.7 10*3/uL 4.4-11.0 [facility] Stress Reporton 10-28-2024 Stress Report Normal [facility] Stress Report Normal [facility] Absolute lymphocyte countOrd ered By: Melba Philippe on 10-12-2024 Lymphocytes Auto (Unsp spec) [#/Vol] 1.25 10*3/uL 0.83-4.[address] [facility] Absolute neutrophil countOrd ered By: Melba Philippe on 10-12-2024 Neutrophils (Bld) [#/Vol] 3.1 10*3/uL 2.0-7.[address] [facility] Albumin to globulin ratioOrd ered By: Melba Philippe on 10-12-2024 Albumin/Globulin [Mass ratio] 1.1 {ratio} 0.9-2.[address] [facility] Automated lymphocyte count a s percentage of total leukocytesOrdered By: Melba Philippe on 10-12-2024 Lymphocytes/100 WBC Auto (Unsp spec) 24.8 % 19-[address] [facility] Basophil percentageOrdered B y: Melba Philippe on 10-12-2024 Basophils/100 WBC (Bld) 0.4 % 0-1 [facility] Bilirubin, totalOrdered By: Melba Philippe on 10-12-2024 Bilirubin [Mass/Vol] 0.50 mg/dL 0.20-1.00 [facility] Comment on above: For patients on eltr ombopag therapy, use of Dimension [place] TBIL is not recommended. Blood urea nitrogen (BUN)/cr eatinine ratioOrdered By: Melba Philippe on 10-12-2024 Urea nitrogen/Creatinine [Mass ratio] 18.3 mg/mg 10-[address] [facility] CBC W/Diff, Automatedon Absolute Lymph 1.25 X10 3/uL Normal 0.83-4.[address] [facility] Comment on above: Performed By: #### L 100.0100, L500.4050 ####[facility] [address] [place], [address] Absolute Neut 3.1 X10 3/uL Normal 2.0-7.[address] [facility] Comment on above: Performed By: #### L 100.0100, L500.4050 ####[facility] [address] [place], [address] Basophils/100 WBC (Bld) 0.4 % Normal 0-1 [facility] Comment on above: Performed By: #### L 100.0100, L500.4050 ####[facility] [address] [place], [address] Eosinophils/100 WBC (Bld) 3.0 % Normal 0-[address] [facility] Comment on above: Performed By: #### L 100.0100, L500.4050 ####[facility] [address] [place], [address] Erythrocyte distribution width (RBC) [Ratio] 14.4 % Normal 11.6-14.[address] [facility] Comment on above: Performed By: #### L 100.0100, L500.4050 ####[facility] [address] [place], [address] Hematocrit (Bld) [Volume fraction] 41.1 % Normal 37-[address] [facility] Comment on above: Performed By: #### L 100.0100, L500.4050 ####[facility] [address] [place], [address] Hemoglobin (Bld) [Mass/Vol] 12.7 g/dL Normal 12.0-15.[address] [facility] Comment on above: Performed By: #### L 100.0100, L500.4050 ####[facility] [address] [place], [address] IG% 0.200 Normal 0.0-0.[address] [facility] Comment on above: Result Comment: IG% - Immature Granulocytes (promyelocytes, myelocytes andmetamyelocytes) > 1% indicates that a LEFT SHIFT is Present. Performed By: #### L 100.0100, L500.4050 ####[facility] [address] [place], [address] Lymphocytes/100 WBC (Bld) 24.8 % Normal 19-[address] [facility] Comment on above: Performed By: #### L 100.0100, L500.4050 ####[facility] [address] [place], [address] MCH (RBC) [Entitic mass] 28.0 pg Normal 27.0-32.[address] [facility] Comment on above: Performed By: #### L 100.0100, L500.4050 ####[facility] [address] [place], [address] MCHC (RBC) [Mass/Vol] 30.9 g/dL Low 32-36 [facility] Comment on above: Performed By: #### L 100.0100, L500.4050 ####[facility] [address] [place], [address] MCV (RBC) [Entitic vol] 90.7 fL Normal 81-99 [facility] Comment on above: Performed By: #### L 100.0100, L500.4050 ####[facility] [address] [place], [address] Monocytes/100 WBC (Bld) 9.3 % Normal 0-10 [facility] Comment on above: Performed By: #### L 100.0100, L500.4050 ####[facility] [address] [place], [address] Neutrophils/100 WBC (Bld) 62.3 % Normal 47-[address] [facility] Comment on above: Performed By: #### L 100.0100, L500.4050 ####[facility] [address] [place], [address] Nucleated RBC (Bld) [#/Vol] 0 10*3/uL Normal 0-[address] [facility] Comment on above: Performed By: #### L 100.0100, L500.4050 ####[facility] [address] [place], [address] Platelet mean volume (Bld) [Entitic vol] 11.5 fL Normal 6.2-12.[address] [facility] Comment on above: Performed By: #### L 100.0100, L500.4050 ####[facility] [address] [place], [address] Platelets (Bld) [#/Vol] 195 10*3/uL Normal 150-[address] [facility] Comment on above: Performed By: #### L 100.0100, L500.4050 ####[facility] [address] [place], [address] RBC (Bld) [#/Vol] 4.53 10*6/uL Normal 4.2-5.4 [facility] Comment on above: Performed By: #### L 100.0100, L500.4050 ####[facility] [address] [place], [address] RDW SD 47.9 fl High 35.1-43.[address] [facility] Comment on above: Performed By: #### L 100.0100, L500.4050 ####[facility] [address] [place], [address] WBC (Bld) [#/Vol] 5.0 10*3/uL Normal 4.4-11.0 [facility] Comment on above: Performed By: #### L 100.0100, L500.4050 ####[facility] [address] [place], [address] Carbon dioxide measurementOr dered By: Melba Philippe on 10-12-2024 CO2 [Moles/Vol] 24.0 mmol/L 21.0-32.[address] [facility] Chloride measurementOrdered By: Melba Philippe on 10-12-2024 Chloride [Moles/Vol] 109 mmol/L High 98-107 [facility] Comprehensive Metabolic Prof ilon 10-12-2024 Albumin [Mass/Vol] 3.8 g/dL Normal 3.2-5.0 [facility] Comment on above: Performed By: #### L 100.0100, L500.4050 ####[facility] [address] [place], [address] Albumin/Globulin [Mass ratio] 1.1 {ratio} Normal 0.9-2.[address] [facility] Comment on above: Performed By: #### L 100.0100, L500.4050 ####[facility] [address] [place], [address] ALK P 62 U/L Normal 45-[address] [facility] Comment on above: Performed By: #### L 100.0100, L500.4050 ####[facility] [address] [place], [address] ALT [Catalytic activity/Vol] 26 U/L Normal 13-[address] [facility] Comment on above: Performed By: #### L 100.0100, L500.4050 ####[facility] [address] [place], [address] AST [Catalytic activity/Vol] 25 U/L Normal 15-[address] [facility] Comment on above: Performed By: #### L 100.0100, L500.4050 ####[facility] [address] [place], [address] Bilirubin [Mass/Vol] 0.50 mg/dL Normal 0.20-1.00 [facility] Comment on above: Result Comment: For patients on eltrombopag therapy, use of Dimension [place] TBIL is not recommended. Performed By: #### L 100.0100, L500.4050 ####[facility] [address], [address] BUN/CRE 18.3 RATIO Normal 10-[address] [facility] Comment on above: Performed By: #### L 100.0100, L500.4050 ####[facility] [address], [address] CA,Total 8.9 mg/dL Normal 8.5-10.[address] [facility] Comment on above: Performed By: #### L 100.0100, L500.4050 ####[facility] [address] [place], [address] Chloride [Moles/Vol] 109 mmol/L High 98-107 [facility] Comment on above: Performed By: #### L 100.0100, L500.4050 ####[facility] [address], [address] CO2 [Moles/Vol] 24.0 mmol/L Normal 21.0-32.[address] [facility] Comment on above: Performed By: #### L 100.0100, L500.4050 ####[facility] [address] [place], [address] Creatinine [Mass/Vol] 1.15 mg/dL High 0.55-1.02 [facility] Comment on above: Result Comment: The validity of the calculated GFR GFRAA in patients over70 years has not been determined. Clinical correlation isessential. Performed By: #### L 100.0100, L500.4050 ####[facility] [address] [place], [address] EST GFR - AA 58 mL/min Low >[address] [facility] Comment on above: Result Comment: Afri can Ug[place] GFR Calc Performed By: #### L 100.0100, L500.4050 ####[facility] [address] [place], [address] GAP 6 Normal 5-[address] [facility] Comment on above: Performed By: #### L 100.0100, L500.4050 ####[facility] [address] [place], [address] GFR/1.73 sq M.predicted among non-blacks MDRD (S/P/Bld) [Vol rate/Area] 48 mL/min/{1.73_m2} Low >60 [facility] Comment on above: Result Comment: Non- GFR Calc Performed By: #### L 100.0100, L500.4050 ####[facility] [address] [place], [address] Globulin (S) [Mass/Vol] 3.4 g/dL Normal 2.2-4.2 [facility] Comment on above: Performed By: #### L 100.0100, L500.4050 ####[facility] [address] [place], [address] Glucose [Mass/Vol] 81 mg/dL Normal 74-106 [facility] Comment on above: Performed By: #### L 100.0100, L500.4050 ####[facility] [address] [place], [address] Potassium [Moles/Vol] 4.3 mmol/L Normal 3.5-5.1 [facility] Comment on above: Performed By: #### L 100.0100, L500.4050 ####[facility] [address] [place], [address] Sodium [Moles/Vol] 139 mmol/L Normal 136-145 [facility] Comment on above: Performed By: #### L 100.0100, L500.4050 ####[facility] [address] [place], [address] T PROT 7.2 g/dL Normal 6.4-8.[address] [facility] Comment on above: Performed By: #### L 100.0100, L500.4050 ####[facility] [address] [place], [address] Urea nitrogen [Mass/Vol] 21 mg/dL High 7-[address] [facility] Comment on above: Performed By: #### L 100.0100, L500.4050 ####[facility] [address] [place], [address] Eosinophil percentageOrdered By: Melba Philippe on 10-12-2024 Eosinophils/100 WBC (Bld) 3.0 % 0-[address] [facility] Erythrocyte distribution wid th ratioOrdered By: Melba Philippe on 10-12-2024 Erythrocyte distribution width (RBC) [Ratio] 14.4 % 11.6-14.[address] [facility] Erythrocyte distribution wid th standard deviationOrdered By: Melba Philippe on 10-12-2024 Erythrocyte distribution width (RBC) [Entitic vol] 47.9 fL High 35.1-43.9 [facility] Erythrocyte distribution width (RBC) [Ratio] 47.9 fl High 35.1-43.[address] [facility] Estimated glomerular filtrat ion rate (GFR) AmericanOrdered By: Melba Philippe on 10-12-2024 Estimated GFR (MDRD) Amer 58 mL/min Low >[address] [facility] Comment on above: GFR Calc Glomerular filtration rate ( GFR) estimationOrdered By: Melba Philippe on 10-12-2024 Estimated GFR (MDRD) Non-Af Amer 48 mL/min Low >[address] [facility] Comment on above: Non- GFR Calc GFR/1.73 sq M.predicted among non-blacks MDRD (S/P/Bld) [Vol rate/Area] 48 mL/min/{1.73_m2} Low >60 [facility] Comment on above: Non- GFR Calc Glucose measurementOrdered B y: Melba Philippe on 10-12-2024 Glucose [Mass/Vol] 81 mg/dL 74-106 [facility] Hematocrit Auto (Bld) [Volum e fraction]Ordered By: Melba Philippe on 10-12-2024 Hematocrit (Bld) [Volume fraction] 41.1 % 37-[address] [facility] Hemoglobin measurementOrdere d By: Melba Philippe on 10-12-2024 Hemoglobin (Bld) [Mass/Vol] 12.7 g/dL 12.0-15.[address] [facility] Immature granulocytes/100 WB C Auto (Bld)Ordered By: Melba Philippe on 10-12-2024 Immature granulocytes/100 WBC (Bld) 0.200 % 0.0-0.[address] [facility] Comment on above: IG% - Immature Granu locytes (promyelocytes, myelocytes and metamyelocytes) > 1% indicates that a LEFT SHIFT is Present. Internal Medicine Office Vis nita 10-12-2024 Internal Medicine Office Visit Normal [facility] Laboratory - Chemistry and C hemistry - challengeOrdered By: Melba Philippe on 10-12-2024 AST [Catalytic activity/Vol] 25 U/L 15-[address] [facility] Lymphocytes Auto (Unsp spec) [#/Vol]Ordered By: Melba Philippe on 10-12-2024 Lymphocytes (Bld) [#/Vol] 1.25 10*3/uL 0.83-4.[address] [facility] Lymphocytes/100 WBC Auto (Un sp spec)Ordered By: Melba Philippe on 10-12-2024 Lymphocytes/100 WBC (Bld) 24.8 % 19-[address] [facility] MCV (mean corpuscular volume ) determinationOrdered By: Melba Philippe on 10-12-2024 MCV (RBC) [Entitic vol] 90.7 fL 81-99 [facility] Mean corpuscular hemoglobin (MCH) determinationOrdered By: Melba Philippe on 10-12-2024 MCH (RBC) [Entitic mass] 28.0 pg 27.0-32.[address] [facility] Mean corpuscular hemoglobin concentration (MCHC) determinationOrdered By: Melba Philippe on 10-12-2024 MCHC (RBC) [Mass/Vol] 30.9 g/dL Low 32-36 [facility] Mean platelet volume determi nationOrdered By: Melba Philippe on 10-12-2024 Platelet mean volume (Bld) [Entitic vol] 11.5 fL 6.2-12.[address] [facility] Monocyte percentageOrdered B y: Melba Philippe on 10-12-2024 Monocytes/100 WBC (Bld) 9.3 % 0-10 [facility] Neutrophil percentageOrdered By: Melba Philippe on 10-12-2024 Neutrophils/100 WBC (Bld) 62.3 % 47-[address] [facility] Nucleated red blood cell per centageOrdered By: Melba Philippe on 10-12-2024 Nucleated RBC/100 WBC (Bld) [Ratio] 0 % 0-[address] [facility] Platelet countOrdered By: Avery Philippe on 10-12-2024 Platelets (Bld) [#/Vol] 195 10*3/uL 150-[address] [facility] Potassium measurementOrdered By: Melba Philippe on 10-12-2024 Potassium [Moles/Vol] 4.3 mmol/L 3.5-5.1 [facility] RBC Auto (Bld) [#/Vol]Ordere d By: Melba Philippe on 10-12-2024 RBC (Bld) [#/Vol] 4.53 10*6/uL 4.2-5.4 [facility] Serum anion gap measurementO rdered By: Melba Philippe on 10-12-2024 Anion gap [Moles/Vol] 6 mmol/L 5-15 [facility] Serum globulin measurementOr dered By: Melba Philippe on 10-12-2024 Globulin (S) [Mass/Vol] 3.4 g/dL 2.2-4.2 [facility] Serum or plasma alanine lubin otransferase (ALT) measurementOrdered By: Melba Philippe on 10-12-2024 ALT [Catalytic activity/Vol] 26 U/L 13-[address] [facility] Serum or plasma albumin alexa urement (mass/volume)Ordered By: Melba Philippe on 10-12-2024 Albumin [Mass/Vol] 3.8 g/dL 3.2-5.0 [facility] Serum or plasma alkaline asif sphatase measurementOrdered By: Melba Philippe on 10-12-2024 ALP [Catalytic activity/Vol] 62 U/L 45-[address] [facility] Serum or plasma calcium alexa urement (mass/volume)Ordered By: Melba Philippe on 10-12-2024 Calcium [Mass/Vol] 8.9 mg/dL 8.5-10.1 [facility] Serum or plasma creatinine m easurement (mass/volume)Ordered By: Melba Philippe on 10-12-2024 Creatinine [Mass/Vol] 1.15 mg/dL High 0.55-1.02 [facility] Comment on above: The validity of the calculated GFR & GFRAA in patients over 70 years has not been determined. Clinical correlation is essential. Serum or plasma urea nitroge n measurement (mass/volume)Ordered By: Melba Philippe on 10-12-2024 Urea nitrogen [Mass/Vol] 21 mg/dL High - [facility] Sodium levelOrdered By: Shabnam Philippe on 10-12-2024 Sodium [Moles/Vol] 139 mmol/L 136-145 [facility] Total proteinOrdered By: Denny Philippe on 10-12-2024 Protein [Mass/Vol] 7.2 g/dL 6.4-8.2 [facility] White blood cell (WBC) count Ordered By: Melba Philippe on 10-12-2024 WBC (Bld) [#/Vol] 5.0 10*3/uL 4.4-11.0 [facility] Wound Ctr History AND Physic rios 10-12-2024 Wound Ctr History & Physical Normal [facility] Wound Ctr History AND Physic rios 09-28-2024 Wound Ctr History & Physical Normal [facility] Wound Ctr History AND Physic rios 09-08-2024 Wound Ctr History & Physical Normal [facility] Wound Ctr History AND Physic rios 08-24-2024 Wound Ctr History & Physical Normal [facility] Wound Ctr History AND Physic rios 08-09-2024 Wound Ctr History & Physical Normal [facility] Wound Ctr History AND Physic rios 07-28-2024 Wound Ctr History & Physical Normal [facility] Wound Ctr History AND Physic rios 07-20-2024 Wound Ctr History & Physical Normal [facility] Wound Ctr History AND Physic rios 07-05-2024 Wound Ctr History & Physical Normal [facility] Wound Ctr History AND Physic rios 06-29-2024 Wound Ctr History & Physical Normal [facility] Wound Ctr History AND Physic rios 06-21-2024 Wound Ctr History & Physical Normal [facility] Wound Ctr History AND Physic rios 06-15-2024 Wound Ctr History & Physical Normal [facility] Office Visit Reporton 2023 Office Visit Report Normal [facility] Internal Medicine Office Vis iton 06-08-2024 Internal Medicine Office Visit Normal [facility] Wound Ctr History AND Physic rios 06-08-2024 Wound Ctr History & Physical Normal [facility] Culture, Anaerobic Any Sourc jessi 06-07-2024 CUAN [address] [facility] Comment on above: Performed By: #### M 100.3000, M100.4001, ####[facility] [address] [place], [address] Office Visit Reporton 2023 Office Visit Report Normal [facility] Office Visit Reporton 2023 Office Visit Report Normal [facility] Wound Cultureon 06-03-2024 WC Normal [facility] Comment on above: Performed By: #### M 100.3000, M100.4001, ####[facility] [address] [place], [address] Gram Stainon 06-01-2024 GS Gram Stain 1+ White Blood Cells 4+ Gram negative rods Rare Gram positive cocci No Epithelial cells 4+ Red Blood Cells Normal [facility] Comment on above: Performed By: #### M 100.3000, M100.4001, ####[facility] [address] [place], [address] Wound Ctr History AND Physic rios 05-31-2024 Wound Ctr History & Physical Normal [facility] Wound Ctr History AND Physic rios 05-24-2024 Wound Ctr History & Physical Normal [facility] Wound Ctr History AND Physic rios 05-18-2024 Wound Ctr History & Physical Normal [facility] Basic Metabolic Profile (BMP )on 05-10-2024 BUN/CRE 17.9 RATIO Normal 10-[address] [facility] Comment on above: Performed By: #### L 500.2500, L501.6710, L100.0100 ####[facility] [address] [place], [address] CA,Total 9.4 mg/dL Normal 8.5-10.[address] [facility] Comment on above: Performed By: #### L 500.2500, L501.6710, L100.0100 ####[facility] [address] [place], [address] Chloride [Moles/Vol] 108 mmol/L High 98-107 [facility] Comment on above: Performed By: #### L 500.2500, L501.6710, L100.0100 ####[facility] [address] [place], [address] CO2 [Moles/Vol] 27.0 mmol/L Normal 21.0-32.[address] [facility] Comment on above: Performed By: #### L 500.2500, L501.6710, L100.0100 ####[facility] [address] [place], [address] Creatinine [Mass/Vol] 1.06 mg/dL High 0.55-1.02 [facility] Comment on above: Result Comment: The validity of the calculated GFR GFRAA in patients over70 years has not been determined. Clinical correlation isessential. Performed By: #### L 500.2500, L501.6710, L100.0100 ####[facility] [address] [place], [address] EST GFR - AA 64 mL/min Normal >[address] [facility] Comment on above: Result Comment: Afri can [place] GFR Calc Performed By: #### L 500.2500, L501.6710, L100.0100 ####[facility] [address] [place], [address] GAP 4 Low 5-[address] [facility] Comment on above: Performed By: #### L 500.2500, L501.6710, L100.0100 ####[facility] [address] [place], [address] GFR/1.73 sq M.predicted among non-blacks MDRD (S/P/Bld) [Vol rate/Area] 53 mL/min/{1.73_m2} Low >60 [facility] Comment on above: Result Comment: Non- GFR Calc Performed By: #### L 500.2500, L501.6710, L100.0100 ####[facility] [address] [place], [address] Glucose [Mass/Vol] 90 mg/dL Normal 74-106 [facility] Comment on above: Performed By: #### L 500.2500, L501.6710, L100.0100 ####[facility] [address] [place], [address] Potassium [Moles/Vol] 4.1 mmol/L Normal 3.5-5.1 [facility] Comment on above: Performed By: #### L 500.2500, L501.6710, L100.0100 ####[facility] [address] [place], [address] Sodium [Moles/Vol] 139 mmol/L Normal 136-145 [facility] Comment on above: Performed By: #### L 500.2500, L501.6710, L100.0100 ####[facility] [address] [place], [address] Urea nitrogen [Mass/Vol] 19 mg/dL High 7-[address] [facility] Comment on above: Performed By: #### L 500.2500, L501.6710, L100.0100 ####[facility] [address] [place], [address] CBC W/Diff, Automatedon 09-0 -2023 Absolute Lymph 1.31 X10 3/uL Normal 0.83-4.[address] [facility] Comment on above: Performed By: #### L 100.0100, L500.4050 ####[facility] [address] [place], [address] Absolute Neut 4.3 X10 3/uL Normal 2.0-7.[address] [facility] Comment on above: Performed By: #### L 100.0100, L500.4050 ####[facility] [address] [place], [address] Basophils/100 WBC (Bld) 0.5 % Normal 0-1 [facility] Comment on above: Performed By: #### L 100.0100, L500.4050 ####[facility] [address] [place], [address] Eosinophils/100 WBC (Bld) 1.9 % Normal 0-[address] [facility] Comment on above: Performed By: #### L 100.0100, L500.4050 ####[facility] [address] [place], [address] Erythrocyte distribution width (RBC) [Ratio] 13.6 % Normal 11.6-14.[address] [facility] Comment on above: Performed By: #### L 100.0100, L500.4050 ####[facility] [address] [place], [address] Hematocrit (Bld) [Volume fraction] 34.3 % Low 37-[address] [facility] Comment on above: Performed By: #### L 100.0100, L500.4050 ####[facility] [address] [place], [address] Hemoglobin (Bld) [Mass/Vol] 11.1 g/dL Low 12.0-15.[address] [facility] Comment on above: Performed By: #### L 100.0100, L500.4050 ####[facility] [address] [place], [address] IG% 0.300 Normal 0.0-0.[address] [facility] Comment on above: Result Comment: IG% - Immature Granulocytes (promyelocytes, myelocytes andmetamyelocytes) > 1% indicates that a LEFT SHIFT is Present. Performed By: #### L 100.0100, L500.4050 ####[facility] [address] [place], [address] Lymphocytes/100 WBC (Bld) 20.9 % Normal 19-[address] [facility] Comment on above: Performed By: #### L 100.0100, L500.4050 ####[facility] [address] [place], [address] MCH (RBC) [Entitic mass] 28.9 pg Normal 27.0-32.[address] [facility] Comment on above: Performed By: #### L 100.0100, L500.4050 ####[facility] [address] [place], [address] MCHC (RBC) [Mass/Vol] 32.4 g/dL Normal 32-36 [facility] Comment on above: Performed By: #### L 100.0100, L500.4050 ####[facility] [address] [place], [address] MCV (RBC) [Entitic vol] 89.3 fL Normal 81-99 [facility] Comment on above: Performed By: #### L 100.0100, L500.4050 ####[facility] [address] [place], [address] Monocytes/100 WBC (Bld) 7.5 % Normal 0-10 [facility] Comment on above: Performed By: #### L 100.0100, L500.4050 ####[facility] [address] [place], [address] Neutrophils/100 WBC (Bld) 68.9 % Normal 47-[address] [facility] Comment on above: Performed By: #### L 100.0100, L500.4050 ####[facility] [address] [place], [address] Nucleated RBC (Bld) [#/Vol] 0 10*3/uL Normal 0-[address] [facility] Comment on above: Performed By: #### L 100.0100, L500.4050 ####[facility] [address] [place], [address] Platelet mean volume (Bld) [Entitic vol] 10.4 fL Normal 6.2-12.[address] [facility] Comment on above: Performed By: #### L 100.0100, L500.4050 ####[facility] [address] [place], [address] Platelets (Bld) [#/Vol] 280 10*3/uL Normal 150-[address] [facility] Comment on above: Performed By: #### L 100.0100, L500.4050 ####[facility] [address] [place], [address] RBC (Bld) [#/Vol] 3.84 10*6/uL Low 4.2-5.4 [facility] Comment on above: Performed By: #### L 100.0100, L500.4050 ####[facility] [address] [place], [address] RDW SD 44.4 fl High 35.1-43.[address] [facility] Comment on above: Performed By: #### L 100.0100, L500.4050 ####[facility] [address] [place], [address] WBC (Bld) [#/Vol] 6.3 10*3/uL Normal 4.4-11.0 [facility] Comment on above: Performed By: #### L 100.0100, L500.4050 ####[facility] [address] [place], [address] Absolute Lymph 1.26 X10 3/uL Normal 0.83-4.[address] [facility] Comment on above: Performed By: #### L 500.2500, L501.6710, L100.0100 ####[facility] [address], [address] Absolute Neut 4.8 X10 3/uL Normal 2.0-7.[address] [facility] Comment on above: Performed By: #### L 500.2500, L501.6710, L100.0100 ####[facility] [address], [address] Basophils/100 WBC (Bld) 0.6 % Normal 0-1 [facility] Comment on above: Performed By: #### L 500.2500, L501.6710, L100.0100 ####[facility] [address] [place], [address] Eosinophils/100 WBC (Bld) 1.6 % Normal 0-[address] [facility] Comment on above: Performed By: #### L 500.2500, L501.6710, L100.0100 ####[facility] [address] [place], [address] Erythrocyte distribution width (RBC) [Ratio] 13.6 % Normal 11.6-14.[address] [facility] Comment on above: Performed By: #### L 500.2500, L501.6710, L100.0100 ####[facility] [address] [place], [address] Hematocrit (Bld) [Volume fraction] 34.6 % Low 37-[address] [facility] Comment on above: Performed By: #### L 500.2500, L501.6710, L100.0100 ####[facility] [address] [place], [address] Hemoglobin (Bld) [Mass/Vol] 11.0 g/dL Low 12.0-15.[address] [facility] Comment on above: Performed By: #### L 500.2500, L501.6710, L100.0100 ####[facility] [address] [place], [address] IG% 0.400 Normal 0.0-0.[address] [facility] Comment on above: Result Comment: IG% - Immature Granulocytes (promyelocytes, myelocytes andmetamyelocytes) > 1% indicates that a LEFT SHIFT is Present. Performed By: #### L 500.2500, L501.6710, L100.0100 ####[facility] [address] [place], [address] Lymphocytes/100 WBC (Bld) 18.7 % Low 19-[address] [facility] Comment on above: Performed By: #### L 500.2500, L501.6710, L100.0100 ####[facility] [address] [place], [address] MCH (RBC) [Entitic mass] 28.5 pg Normal 27.0-32.[address] [facility] Comment on above: Performed By: #### L 500.2500, L501.6710, L100.0100 ####[facility] [address] [place], [address] MCHC (RBC) [Mass/Vol] 31.8 g/dL Low 32-36 [facility] Comment on above: Performed By: #### L 500.2500, L501.6710, L100.0100 ####[facility] [address] [place], [address] MCV (RBC) [Entitic vol] 89.6 fL Normal 81-99 [facility] Comment on above: Performed By: #### L 500.2500, L501.6710, L100.0100 ####[facility] [address] [place], [address] Monocytes/100 WBC (Bld) 7.0 % Normal 0-10 [facility] Comment on above: Performed By: #### L 500.2500, L501.6710, L100.0100 ####[facility] [address] [place], [address] Neutrophils/100 WBC (Bld) 71.7 % High 47-[address] [facility] Comment on above: Performed By: #### L 500.2500, L501.6710, L100.0100 ####[facility] [address] [place], [address] Nucleated RBC (Bld) [#/Vol] 0 10*3/uL Normal 0-[address] [facility] Comment on above: Performed By: #### L 500.2500, L501.6710, L100.0100 ####[facility] [address] [place], [address] Platelet mean volume (Bld) [Entitic vol] 10.4 fL Normal 6.2-12.[address] [facility] Comment on above: Performed By: #### L 500.2500, L501.6710, L100.0100 ####[facility] [address] [place], [address] Platelets (Bld) [#/Vol] 279 10*3/uL Normal 150-[address] [facility] Comment on above: Performed By: #### L 500.2500, L501.6710, L100.0100 ####[facility] [address] [place], [address] RBC (Bld) [#/Vol] 3.86 10*6/uL Low 4.2-5.4 [facility] Comment on above: Performed By: #### L 500.2500, L501.6710, L100.0100 ####[facility] [address] [place], [address] RDW SD 45.0 fl High 35.1-43.[address] [facility] Comment on above: Performed By: #### L 500.2500, L501.6710, L100.0100 ####[facility] [address] [place], [address] WBC (Bld) [#/Vol] 6.7 10*3/uL Normal 4.4-11.0 [facility] Comment on above: Performed By: #### L 500.2500, L501.6710, L100.0100 ####[facility] [address] [place], [address] CRPon 05-10-2024 C-REACTIVE PROT 8.18 mg/L High 0.0-3.[address] [facility] Comment on above: Result Comment: C-Re active Protein (CRP) provides useful information for thediagnosis, therapy and monitoring of inflammatory processesand associated diseases. For the evaluation of Relative Riskfor Cardiovascular Disease, a High Sensitivity CRP (HSCRP)should be ordered. Performed By: #### L 500.2500, L501.6710, L100.0100 ####[facility] [address] [place], [address] Comprehensive Metabolic Prof ilon 05-10-2024 Albumin [Mass/Vol] 3.3 g/dL Normal 3.2-5.0 [facility] Comment on above: Performed By: #### L 100.0100, L500.4050 ####[facility] [address] [place], [address] Albumin/Globulin [Mass ratio] 0.9 {ratio} Normal 0.9-2.[address] [facility] Comment on above: Performed By: #### L 100.0100, L500.4050 ####[facility] [address] [place], [address] ALK P 102 U/L Normal 45-[address] [facility] Comment on above: Performed By: #### L 100.0100, L500.4050 ####[facility] [address] [place], [address] ALT [Catalytic activity/Vol] 22 U/L Normal 13-[address] [facility] Comment on above: Performed By: #### L 100.0100, L500.4050 ####[facility] [address] [place], [address] AST [Catalytic activity/Vol] 20 U/L Normal 15-[address] [facility] Comment on above: Performed By: #### L 100.0100, L500.4050 ####[facility] [address] [place], [address] Bilirubin [Mass/Vol] 0.60 mg/dL Normal 0.20-1.00 [facility] Comment on above: Result Comment: For patients on eltrombopag therapy, use of Dimension [place] TBIL is not recommended. Performed By: #### L 100.0100, L500.4050 ####[facility] [address] [place], [address] BUN/CRE 17.5 RATIO Normal 10-[address] [facility] Comment on above: Performed By: #### L 100.0100, L500.4050 ####[facility] [address], [address] CA,Total 9.7 mg/dL Normal 8.5-10.[address] [facility] Comment on above: Performed By: #### L 100.0100, L500.4050 ####[facility] [address] [place], [address] Chloride [Moles/Vol] 108 mmol/L High 98-107 [facility] Comment on above: Performed By: #### L 100.0100, L500.4050 ####[facility] [address], [address] CO2 [Moles/Vol] 26.0 mmol/L Normal 21.0-32.[address] [facility] [facility] [facility] Comment on above: Performed By: #### L 100.0100, L500.4050 ####[facility] [address] [place], [address] Creatinine [Mass/Vol] 1.03 mg/dL High 0.55-1.02 [facility] Comment on above: Result Comment: The validity of the calculated GFR GFRAA in patients over70 years has not been determined. Clinical correlation isessential. Performed By: #### L 100.0100, L500.4050 ####[facility] [address] [place], [address] EST GFR - AA 66 mL/min Normal >[address] [facility] Comment on above: Result Comment: Afri can Ugandan GFR Calc Performed By: #### L 100.0100, L500.4050 ####[facility] [address] [place], [address] GAP 5 Normal 5-[address] [facility] Comment on above: Performed By: #### L 100.0100, L500.4050 ####[facility] [address] [place], [address] GFR/1.73 sq M.predicted among non-blacks MDRD (S/P/Bld) [Vol rate/Area] 55 mL/min/{1.73_m2} Low >60 [facility] Comment on above: Result Comment: Non- GFR Calc Performed By: #### L 100.0100, L500.4050 ####[facility] [address] [place], [address] Globulin (S) [Mass/Vol] 3.5 g/dL Normal 2.2-4.2 [facility] Comment on above: Performed By: #### L 100.0100, L500.4050 ####[facility] [address] [place], [address] Glucose [Mass/Vol] 89 mg/dL Normal 74-106 [facility] Comment on above: Performed By: #### L 100.0100, L500.4050 ####[facility] [address] [place], [address] Potassium [Moles/Vol] 4.0 mmol/L Normal 3.5-5.1 [facility] Comment on above: Performed By: #### L 100.0100, L500.4050 ####[facility] [address] [place], [address] Sodium [Moles/Vol] 139 mmol/L Normal 136-145 [facility] Comment on above: Performed By: #### L 100.0100, L500.4050 ####[facility] [address] [place], [address] T PROT 6.8 g/dL Normal 6.4-8.[address] [facility] Comment on above: Performed By: #### L 100.0100, L500.4050 ####[facility] [address] [place], [address] Urea nitrogen [Mass/Vol] 18 mg/dL Normal 7-[address] [facility] Comment on above: Performed By: #### L 100.0100, L500.4050 ####[facility] [address] [place], [address] Emergency Department Summary on 05-10-2024 Emergency Department Summary Normal [facility] Venous Duplex US, Unilateral on 05-10-2024 Venous Duplex US, Unilateral Normal [facility] Extremity Lower WITH Contras ton 05-06-2024 Extremity Lower WITH Contrast Normal [facility] Extremity Upper without Cont raon 05-06-2024 Extremity Upper without Contra Normal [facility] CBC W/Diff, Automatedon - Absolute Lymph 1.05 X10 3/uL Normal 0.83-4.[address] [facility] Comment on above: Performed By: #### L 100.0100, L501.6710, L500.4050 ####[facility] [address] [place], [address] Absolute Neut 4.3 X10 3/uL Normal 2.0-7.[address] [facility] Comment on above: Performed By: #### L 100.0100, L501.6710, L500.4050 ####[facility] [address] [place], [address] Basophils/100 WBC (Bld) 0.6 % Normal 0-1 [facility] Comment on above: Performed By: #### L 100.0100, L501.6710, L500.4050 ####[facility] [address] [place], [address] Eosinophils/100 WBC (Bld) 2.4 % Normal 0-[address] [facility] Comment on above: Performed By: #### L 100.0100, L501.6710, L500.4050 ####[facility] [address] [place], [address] Erythrocyte distribution width (RBC) [Ratio] 13.5 % Normal 11.6-14.[address] [facility] Comment on above: Performed By: #### L 100.0100, L501.6710, L500.4050 ####[facility] [address] [place], [address] Hematocrit (Bld) [Volume fraction] 32.8 % Low 37-[address] [facility] Comment on above: Performed By: #### L 100.0100, L501.6710, L500.4050 ####[facility] [address] [place], [address] Hemoglobin (Bld) [Mass/Vol] 10.4 g/dL Low 12.0-15.[address] [facility] Comment on above: Performed By: #### L 100.0100, L501.6710, L500.4050 ####[facility] [address] [place], [address] IG% 0.500 Normal 0.0-0.[address] [facility] Comment on above: Result Comment: IG% - Immature Granulocytes (promyelocytes, myelocytes andmetamyelocytes) > 1% indicates that a LEFT SHIFT is Present. Performed By: #### L 100.0100, L501.6710, L500.4050 ####[facility] [address] [place], [address] Lymphocytes/100 WBC (Bld) 17.0 % Low 19-[address] [facility] Comment on above: Performed By: #### L 100.0100, L501.6710, L500.4050 ####[facility] [address] [place], [address] MCH (RBC) [Entitic mass] 28.4 pg Normal 27.0-32.[address] [facility] Comment on above: Performed By: #### L 100.0100, L501.6710, L500.4050 ####[facility] [address] [place], [address] MCHC (RBC) [Mass/Vol] 31.7 g/dL Low 32-36 [facility] Comment on above: Performed By: #### L 100.0100, L501.6710, L500.4050 ####[facility] [address] [place], [address] MCV (RBC) [Entitic vol] 89.6 fL Normal 81-99 [facility] Comment on above: Performed By: #### L 100.0100, L501.6710, L500.4050 ####[facility] [address] [place], [address] Monocytes/100 WBC (Bld) 10.1 % High 0-10 [facility] Comment on above: Performed By: #### L 100.0100, L501.6710, L500.4050 ####[facility] [address] [place], [address] Neutrophils/100 WBC (Bld) 69.4 % Normal 47-[address] [facility] Comment on above: Performed By: #### L 100.0100, L501.6710, L500.4050 ####[facility] [address] [place], [address] Nucleated RBC (Bld) [#/Vol] 0 10*3/uL Normal 0-[address] [facility] Comment on above: Performed By: #### L 100.0100, L501.6710, L500.4050 ####[facility] [address] [place], [address] Platelet mean volume (Bld) [Entitic vol] 10.9 fL Normal 6.2-12.[address] [facility] Comment on above: Performed By: #### L 100.0100, L501.6710, L500.4050 ####[facility] [address] [place], [address] Platelets (Bld) [#/Vol] 260 10*3/uL Normal 150-[address] [facility] Comment on above: Performed By: #### L 100.0100, L501.6710, L500.4050 ####[facility] [address] [place], [address] RBC (Bld) [#/Vol] 3.66 10*6/uL Low 4.2-5.4 [facility] Comment on above: Performed By: #### L 100.0100, L501.6710, L500.4050 ####[facility] [address] [place], [address] RDW SD 44.5 fl High 35.1-43.[address] [facility] Comment on above: Performed By: #### L 100.0100, L501.6710, L500.4050 ####[facility] [address] [place], [address] WBC (Bld) [#/Vol] 6.2 10*3/uL Normal 4.4-11.0 [facility] Comment on above: Performed By: #### L 100.0100, L501.6710, L500.4050 ####[facility] [address] [place], [address] CRPon 05-05-2024 C-REACTIVE PROT 26.70 mg/L High 0.0-3.[address] [facility] Comment on above: Result Comment: C-Re active Protein (CRP) provides useful information for thediagnosis, therapy and monitoring of inflammatory processesand associated diseases. For the evaluation of Relative Riskfor Cardiovascular Disease, a High Sensitivity CRP (HSCRP)should be ordered. Performed By: #### L 100.0100, L501.6710, L500.4050 ####[facility] [address] [place], [address] Comprehensive Metabolic Prof ilon 05-05-2024 Albumin [Mass/Vol] 3.3 g/dL Normal 3.2-5.0 [facility] Comment on above: Performed By: #### L 100.0100, L501.6710, L500.4050 ####[facility] [address] [place], [address] Albumin/Globulin [Mass ratio] 0.9 {ratio} Normal 0.9-2.[address] [facility] Comment on above: Performed By: #### L 100.0100, L501.6710, L500.4050 ####[facility] [address] [place], [address] ALK P 76 U/L Normal 45-[address] [facility] Comment on above: Performed By: #### L 100.0100, L501.6710, L500.4050 ####[facility] [address] [place], [address] ALT [Catalytic activity/Vol] 20 U/L Normal 13-[address] [facility] Comment on above: Performed By: #### L 100.0100, L501.6710, L500.4050 ####[facility] [address] [place], [address] AST [Catalytic activity/Vol] 20 U/L Normal 15-[address] [facility] Comment on above: Performed By: #### L 100.0100, L501.6710, L500.4050 ####[facility] [address] [place], [address] Bilirubin [Mass/Vol] 0.50 mg/dL Normal 0.20-1.00 [facility] Comment on above: Result Comment: For patients on eltrombopag therapy, use of Dimension [place] TBIL is not recommended. Performed By: #### L 100.0100, L501.6710, L500.4050 ####[facility] [address] [place], [address] BUN/CRE 20.0 RATIO Normal 10-[address] [facility] Comment on above: Performed By: #### L 100.0100, L501.6710, L500.4050 ####[facility] [address] [place], [address] CA,Total 8.9 mg/dL Normal 8.5-10.[address] [facility] Comment on above: Performed By: #### L 100.0100, L501.6710, L500.4050 ####[facility] [address] [place], [address] Chloride [Moles/Vol] 109 mmol/L High 98-107 [facility] Comment on above: Performed By: #### L 100.0100, L501.6710, L500.4050 ####[facility] [address] [place], [address] CO2 [Moles/Vol] 23.0 mmol/L Normal 21.0-32.[address] [facility] Comment on above: Performed By: #### L 100.0100, L501.6710, L500.4050 ####[facility] [address] [place], [address] Creatinine [Mass/Vol] 1.15 mg/dL High 0.55-1.02 [facility] Comment on above: Result Comment: The validity of the calculated GFR GFRAA in patients over70 years has not been determined. Clinical correlation isessential. Performed By: #### L 100.0100, L501.6710, L500.4050 ####[facility] [address] [place], [address] EST GFR - AA 58 mL/min Low >[address] [facility] Comment on above: Result Comment: Afri can Ug[place]an GFR Calc Performed By: #### L 100.0100, L501.6710, L500.4050 ####[facility] [address] [place], [address] GAP 6 Normal 5-[address] [facility] Comment on above: Performed By: #### L 100.0100, L501.6710, L500.4050 ####[facility] [address] [place], [address] GFR/1.73 sq M.predicted among non-blacks MDRD (S/P/Bld) [Vol rate/Area] 48 mL/min/{1.73_m2} Low >60 [facility] Comment on above: Result Comment: Non- GFR Calc Performed By: #### L 100.0100, L501.6710, L500.4050 ####[facility] [address] [place], [address] Globulin (S) [Mass/Vol] 3.6 g/dL Normal 2.2-4.2 [facility] Comment on above: Performed By: #### L 100.0100, L501.6710, L500.4050 ####[facility] [address] [place], [address] Glucose [Mass/Vol] 101 mg/dL Normal 74-106 [facility] Comment on above: Result Comment: Fast ing Glucose result from 100 to 125 mg/dLsuggests IMPAIRED HOMEOSTASIS per A.D.A. criteria. Performed By: #### L 100.0100, L501.6710, L500.4050 ####[facility] [address] [place], [address] Potassium [Moles/Vol] 4.3 mmol/L Normal 3.5-5.1 [facility] Comment on above: Performed By: #### L 100.0100, L501.6710, L500.4050 ####[facility] [address] [place], [address] Sodium [Moles/Vol] 138 mmol/L Normal 136-145 [facility] Comment on above: Performed By: #### L 100.0100, L501.6710, L500.4050 ####[facility] [address] [place], [address] T PROT 6.9 g/dL Normal 6.4-8.[address] [facility] Comment on above: Performed By: #### L 100.0100, L501.6710, L500.4050 ####[facility] [address] [place], [address] Urea nitrogen [Mass/Vol] 23 mg/dL High 7-[address] [facility] Comment on above: Performed By: #### L 100.0100, L501.6710, L500.4050 ####[facility] [address] [place], [address] Internal Medicine Office Vis iton 05-05-2024 Internal Medicine Office Visit Normal [facility] OCT MACULA CIRRUS OU (BOTH E YES)on 05-02-2024 [facility] Radiology Study observation (narrative) [facility] OCT OPTIC NERVE CIRRUS OU (B OTH EYES)on 05-02-2024 [facility] Radiology Study observation (narrative) [facility] VISUAL FIELD 10-2 OU (BOTH E YES)on 05-02-2024 [facility] Radiology Study observation (narrative) [facility] Basic Metabolic Profile (BMP )on 05-01-2024 BUN/CRE 17.2 RATIO Normal 10-[address] [facility] Comment on above: Performed By: #### L 500.3400, L500.2500, L100.0100 ####[facility] [address] [place], [address] CA,Total 8.4 mg/dL Low 8.5-10.[address] [facility] Comment on above: Performed By: #### L 500.3400, L500.2500, L100.0100 ####[facility] [address] [place], [address] Chloride [Moles/Vol] 108 mmol/L High 98-107 [facility] Comment on above: Performed By: #### L 500.3400, L500.2500, L100.0100 ####[facility] [address] [place], [address] CO2 [Moles/Vol] 23.0 mmol/L Normal 21.0-32.[address] [facility] Comment on above: Performed By: #### L 500.3400, L500.2500, L100.0100 ####[facility] [address] [place], [address] Creatinine [Mass/Vol] 1.22 mg/dL High 0.55-1.02 [facility] Comment on above: Result Comment: The validity of the calculated GFR GFRAA in patients over70 years has not been determined. Clinical correlation isessential. Performed By: #### L 500.3400, L500.2500, L100.0100 ####[facility] [address] [place], [address] ECRCL 38.42 ml/min Normal [facility] Comment on above: Performed By: #### L 500.3400, L500.2500, L100.0100 ####[facility] [address] [place], [address] EST GFR - AA 55 mL/min Low >[address] [facility] Comment on above: Result Comment: Afri can Ug[place] GFR Calc Performed By: #### L 500.3400, L500.2500, L100.0100 ####[facility] [address] [place], [address] GAP 7 Normal 5-[address] [facility] Comment on above: Performed By: #### L 500.3400, L500.2500, L100.0100 ####[facility] [address] [place], [address] GFR/1.73 sq M.predicted among non-blacks MDRD (S/P/Bld) [Vol rate/Area] 45 mL/min/{1.73_m2} Low >60 [facility] Comment on above: Result Comment: Non- GFR Calc Performed By: #### L 500.3400, L500.2500, L100.0100 ####[facility] [address] [place], [address] Glucose [Mass/Vol] 117 mg/dL High 74-106 [facility] Comment on above: Result Comment: Fast ing Glucose result from 100 to 125 mg/dLsuggests IMPAIRED HOMEOSTASIS per A.D.A. criteria. Performed By: #### L 500.3400, L500.2500, L100.0100 ####[facility] [address] [place], [address] Potassium [Moles/Vol] 4.1 mmol/L Normal 3.5-5.1 [facility] Comment on above: Performed By: #### L 500.3400, L500.2500, L100.0100 ####[facility] [address] [place], [address] Sodium [Moles/Vol] 138 mmol/L Normal 136-145 [facility] Comment on above: Performed By: #### L 500.3400, L500.2500, L100.0100 ####[facility] [address] [place], [address] Urea nitrogen [Mass/Vol] 21 mg/dL High 7-[address] [facility] Comment on above: Performed By: #### L 500.3400, L500.2500, L100.0100 ####[facility] [address] [place], [address] CBC W/Diff, Automatedon 04-08-2023 Absolute Lymph 1.01 X10 3/uL Normal 0.83-4.[address] [facility] Comment on above: Performed By: #### L 500.3400, L500.2500, L100.0100 ####[facility] [address] [place], [address] Absolute Neut 4.5 X10 3/uL Normal 2.0-7.[address] [facility] Comment on above: Performed By: #### L 500.3400, L500.2500, L100.0100 ####[facility] [address] [place], [address] Basophils/100 WBC (Bld) 0.5 % Normal 0-1 [facility] Comment on above: Performed By: #### L 500.3400, L500.2500, L100.0100 ####[facility] [address] [place], [address] Eosinophils/100 WBC (Bld) 2.1 % Normal 0-[address] [facility] Comment on above: Performed By: #### L 500.3400, L500.2500, L100.0100 ####[facility] [address] [place], [address] Erythrocyte distribution width (RBC) [Ratio] 13.8 % Normal 11.6-14.[address] [facility] Comment on above: Performed By: #### L 500.3400, L500.2500, L100.0100 ####[facility] [address] [place], [address] Hematocrit (Bld) [Volume fraction] 33.9 % Low 37-[address] [facility] Comment on above: Performed By: #### L 500.3400, L500.2500, L100.0100 ####[facility] [address] [place], [address] Hemoglobin (Bld) [Mass/Vol] 10.7 g/dL Low 12.0-15.[address] [facility] Comment on above: Performed By: #### L 500.3400, L500.2500, L100.0100 ####[facility] [address] [place], [address] IG% 0.300 Normal 0.0-0.[address] [facility] Comment on above: Result Comment: IG% - Immature Granulocytes (promyelocytes, myelocytes andmetamyelocytes) > 1% indicates that a LEFT SHIFT is Present. Performed By: #### L 500.3400, L500.2500, L100.0100 ####[facility] [address] [place], [address] Lymphocytes/100 WBC (Bld) 16.0 % Low 19-[address] [facility] Comment on above: Performed By: #### L 500.3400, L500.2500, L100.0100 ####[facility] [address] [place], [address] MCH (RBC) [Entitic mass] 28.5 pg Normal 27.0-32.[address] [facility] Comment on above: Performed By: #### L 500.3400, L500.2500, L100.0100 ####[facility] [address] [place], [address] MCHC (RBC) [Mass/Vol] 31.6 g/dL Low 32-36 [facility] Comment on above: Performed By: #### L 500.3400, L500.2500, L100.0100 ####[facility] [address] [place], [address] MCV (RBC) [Entitic vol] 90.4 fL Normal 81-99 [facility] Comment on above: Performed By: #### L 500.3400, L500.2500, L100.0100 ####[facility] [address] [place], [address] Monocytes/100 WBC (Bld) 9.5 % Normal 0-10 [facility] Comment on above: Performed By: #### L 500.3400, L500.2500, L100.0100 ####[facility] [address] [place], [address] Neutrophils/100 WBC (Bld) 71.6 % High 47-[address] [facility] Comment on above: Performed By: #### L 500.3400, L500.2500, L100.0100 ####[facility] [address] [place], [address] Nucleated RBC (Bld) [#/Vol] 0 10*3/uL Normal 0-[address] [facility] Comment on above: Performed By: #### L 500.3400, L500.2500, L100.0100 ####[facility] [address] [place], [address] Platelet mean volume (Bld) [Entitic vol] 10.9 fL Normal 6.2-12.[address] [facility] Comment on above: Performed By: #### L 500.3400, L500.2500, L100.0100 ####[facility] [address] [place], [address] Platelets (Bld) [#/Vol] 185 10*3/uL Normal 150-[address] [facility] Comment on above: Performed By: #### L 500.3400, L500.2500, L100.0100 ####[facility] [address] [place], [address] RBC (Bld) [#/Vol] 3.75 10*6/uL Low 4.2-5.4 [facility] Comment on above: Performed By: #### L 500.3400, L500.2500, L100.0100 ####[facility] [address] [place], [address] RDW SD 45.4 fl High 35.1-43.[address] [facility] Comment on above: Performed By: #### L 500.3400, L500.2500, L100.0100 ####[facility] [address] [place], [address] WBC (Bld) [#/Vol] 6.3 10*3/uL Normal 4.4-11.0 [facility] Comment on above: Performed By: #### L 500.3400, L500.2500, L100.0100 ####[facility] [address] [place], [address] Emergency Department Summary on 05-01-2024 Emergency Department Summary Normal [facility] Knee 4 or More Viewson 05-01 Knee 4 or More Views Normal [facility] Liver Profileon 05-01-2024 Albumin [Mass/Vol] 3.3 g/dL Normal 3.2-5.0 [facility] Comment on above: Performed By: #### L 500.3400, L500.2500, L100.0100 ####[facility] [address] [place], [address] ALK P 60 U/L Normal 45-[address] [facility] Comment on above: Performed By: #### L 500.3400, L500.2500, L100.0100 ####[facility] [address] [place], [address] ALT [Catalytic activity/Vol] 22 U/L Normal 13-[address] [facility] Comment on above: Performed By: #### L 500.3400, L500.2500, L100.0100 ####[facility] [address] [place], [address] AST [Catalytic activity/Vol] 25 U/L Normal 15-[address] [facility] Comment on above: Performed By: #### L 500.3400, L500.2500, L100.0100 ####[facility] [address] [place], [address] Bilirubin [Mass/Vol] 0.80 mg/dL Normal 0.20-1.00 [facility] Comment on above: Result Comment: For patients on eltrombopag therapy, use of Dimension [place] TBIL is not recommended. Performed By: #### L 500.3400, L500.2500, L100.0100 ####[facility] [address] [place], [address] Bilirubin.direct [Mass/Vol] 0.21 mg/dL Normal 0.00-0.[address] [facility] Comment on above: Performed By: #### L 500.3400, L500.2500, L100.0100 ####[facility] [address] [place], [address] Globulin (S) [Mass/Vol] 3.4 g/dL Normal 2.2-4.2 [facility] Comment on above: Performed By: #### L 500.3400, L500.2500, L100.0100 ####[facility] [address] [place], [address] T PROT 6.7 g/dL Normal 6.4-8.2 [facility] Comment on above: Performed By: #### L 500.3400, L500.2500, L100.0100 ####[facility] [address] [place], [address] Partial Thromboplast Timeon 05-01-2024 aPTT Coag (Bld) [Time] 28.0 s Normal 24.1-36.2 [facility] Comment on above: Performed By: #### L 300.3900, L300.4310 ####[facility] [address] [place], [address] Prothrombin Time w/INRon INR Coag (PPP) [Relative time] 1.1 {INR} Normal [facility] Comment on above: Performed By: #### L 300.3900, L300.4310 ####[facility] [address] [place], [address] PT Coag (PPP) [Time] 14.0 s Normal 11.7-14.9 [facility] Comment on above: Performed By: #### L 300.3900, L300.4310 ####[facility] [address] [place], [address] Tibia Fibula 2 Viewson 05-01 Tibia Fibula 2 Views Normal [facility] Emergency Department Summary on 04-27-2024 Emergency Department Summary Normal [facility] Ankle min 3 Viewson 04-26-20 24 Ankle min 3 Views Normal [facility] Knee 3 Viewson 04-26-2024 Knee 3 Views Normal [facility] Ribs Uni Min 3V w/PA Cheston 04-26-2024 Ribs Uni Min 3V w/PA Chest Normal [facility] Wrist min 3 Viewson 04-26-20 24 Wrist min 3 Views Normal [facility] Internal Medicine Office Vis iton 03-07-2024 Internal Medicine Office Visit Normal [facility] Absolute lymphocyte countOrd ered By: Edie Ham on 11-16-2023 Lymphocytes Auto (Unsp spec) [#/Vol] 1.21 10*3/uL 0.83-4.[address] [facility] Automated lymphocyte count a s percentage of total leukocytesOrdered By: Edie Ham on 11-16-2023 Lymphocytes/100 WBC Auto (Unsp spec) 22.8 % 19-[address] [facility] Basophil percentageOrdered B y: Edie Ham on 11-16-2023 Basophils/100 WBC (Bld) 0.6 % 0-1 [facility] Bilirubin [Mass/Vol] 0.60 mg/dL 0.20-1.00 [facility] Comment on above: For patients on eltr ombopag therapy, use of Dimension [place] TBIL is not recommended. Chloride [Moles/Vol] 110 mmol/L 98-107 [facility] Eosinophils/100 WBC (Bld) 1.9 % 0-[address] [facility] Glucose [Mass/Vol] 89 mg/dL 74-106 [facility] Hemoglobin (Bld) [Mass/Vol] 12.5 g/dL 12.0-15.[address] [facility] Monocytes/100 WBC (Bld) 8.1 % 0-10 [facility] Neutrophils (Bld) [#/Vol] 3.5 10*3/uL 2.0-7.[address] [facility] Neutrophils/100 WBC (Bld) 66.4 % 47-[address] [facility] Potassium [Moles/Vol] 3.7 mmol/L 3.5-5.1 [facility] Protein [Mass/Vol] 7.1 g/dL 6.4-8.2 [facility] Sodium [Moles/Vol] 142 mmol/L 136-145 [facility] WBC (Bld) [#/Vol] 5.3 10*3/uL 4.4-11.0 [facility] Determination of erythrocyte mean corpuscular volume (MCV)Ordered By: Edie Ham on 11-16-2023 MCV (RBC) [Entitic vol] 91.9 fL 81-99 [facility] Erythrocyte distribution wid th ratioOrdered By: Edie Ham on 11-16-2023 Erythrocyte distribution width (RBC) [Ratio] 13.4 % 11.6-14.[address] [facility] Erythrocyte distribution wid th standard deviationOrdered By: Edie Ham on 11-16-2023 Erythrocyte distribution width (RBC) [Entitic vol] 45.1 fL 35.1-43.9 [facility] Hematocrit Auto (Bld) [Volum e fraction]Ordered By: Edie Ham on 11-16-2023 Hematocrit (Bld) [Volume fraction] 39.5 % 37-[address] [facility] Immature granulocytes/100 WB C Auto (Bld)Ordered By: Edie Ham on 11-16-2023 Immature granulocytes/100 WBC (Bld) 0.200 % 0.0-0.[address] [facility] Comment on above: IG% - Immature Granu locytes (promyelocytes, myelocytes and metamyelocytes) > 1% indicates that a LEFT SHIFT is Present. Laboratory - Chemistry and C hemistry - challengeOrdered By: Edie Ham on 11-16-2023 Albumin/Globulin [Mass ratio] 1.1 {ratio} 0.9-2.[address] [facility] ALP [Catalytic activity/Vol] 61 U/L 45-[address] [facility] ALT [Catalytic activity/Vol] 25 U/L 13-[address] [facility] CO2 [Moles/Vol] 25.0 mmol/L 21.0-32.[address] [facility] Globulin (S) [Mass/Vol] 3.4 g/dL 2.2-4.2 [facility] Urea nitrogen/Creatinine [Mass ratio] 28.2 mg/mg 10-[address] [facility] Laboratory - Hematology and Cell countsOrdered By: Edie Ham on 11-16-2023 MCH (RBC) [Entitic mass] 29.1 pg 27.0-32.[address] [facility] MCHC (RBC) [Mass/Vol] 31.6 g/dL 32-36 [facility] Nucleated RBC/100 WBC (Bld) [Ratio] 0 % 0-[address] [facility] Platelet mean volume (Bld) [Entitic vol] 11.1 fL 6.2-12.[address] [facility] Platelets (Bld) [#/Vol] 179 10*3/uL 150-[address] [facility] No Panel InformationOrdered By: Edie Ham on 11-16-2023 Estimated GFR (MDRD) Amer 57 mL/min >[address] [facility] Comment on above: GFR Calc Estimated GFR (MDRD) Non-Af Amer 47 mL/min >[address] [facility] Comment on above: Non- GFR Calc RBC Auto (Bld) [#/Vol]Ordere d By: Edie Ham on 11-16-2023 RBC (Bld) [#/Vol] 4.30 10*6/uL 4.2-5.4 [facility] Serum or plasma calcium alexa urement (mass/volume)Ordered By: Edie Ham on 11-16-2023 Calcium [Mass/Vol] 9.3 mg/dL 8.5-10.1 [facility] Serum or plasma creatinine m easurement (mass/volume)Ordered By: Edie Ham on 11-16-2023 Creatinine [Mass/Vol] 1.17 mg/dL 0.55-1.02 [facility] Comment on above: The validity of the calculated GFR & GFRAA in patients over 70 years has not been determined. Clinical correlation is essential. Serum or plasma urea nitroge n measurement (mass/volume)Ordered By: Edie Ham on 11-16-2023 Urea nitrogen [Mass/Vol] 33 mg/dL 7-[address] [facility] Thin prep Papanicolaou smear with manual screeningOrdered By: Edie Ham on 11-16-2023 Thin prep Papanicolaou smear with manual screening 3.7 g/dL 3.2-5.[address] [facility] Thin prep Papanicolaou smear with manual screening 21 U/L 15-[address] [facility] Thin prep Papanicolaou smear with manual screening 7 5-[address] [facility] No Panel Informationon 09-08 Influenza Types A,B Rapid (Clinic) Negative [facility] POC SARS CoV-2 Antigen Negative [facility] Absolute lymphocyte countOrd ered By: Edie Ham on 05-22-2023 Lymphocytes Auto (Unsp spec) [#/Vol] 1.35 10*3/uL 0.83-4.[address] [facility] Basophil percentageOrdered B y: Edie Ham on 05-22-2023 Basophils/100 WBC (Bld) 0.5 % 0-1 [facility] Bilirubin [Mass/Vol] 0.40 mg/dL 0.20-1.00 [facility] Comment on above: For patients on eltr ombopag therapy, use of Dimension [place] TBIL is not recommended. Chloride [Moles/Vol] 112 mmol/L 98-107 [facility] Eosinophils/100 WBC (Bld) 2.0 % 0-[address] [facility] Glucose [Mass/Vol] 80 mg/dL 74-106 [facility] Neutrophils (Bld) [#/Vol] 4.2 10*3/uL 2.0-7.[address] [facility] Neutrophils/100 WBC (Bld) 68.7 % 47-[address] [facility] Potassium [Moles/Vol] 4.0 mmol/L 3.5-5.1 [facility] Protein [Mass/Vol] 6.7 g/dL 6.4-8.2 [facility] Sodium [Moles/Vol] 141 mmol/L 136-145 [facility] WBC (Bld) [#/Vol] 6.1 10*3/uL 4.4-11.0 [facility] Blood erythrocytes count (nu mber/volume)Ordered By: Edie Ham on 05-22-2023 RBC (Bld) [#/Vol] 4.45 10*6/uL 4.2-5.4 [facility] Blood hemoglobin measurement (mass/volume)Ordered By: Edei Ham on 05-22-2023 Hemoglobin (Bld) [Mass/Vol] 13.1 g/dL 12.0-15.[address] [facility] Blood lymphocytes/100 leukoc ytesOrdered By: Edie Ham on 05-22-2023 Lymphocytes/100 WBC (Bld) 22.3 % 19-[address] [facility] Blood monocytes/100 leukocyt esOrdered By: Edie Ham on 05-22-2023 Monocytes/100 WBC (Bld) 6.3 % 0-10 [facility] Blood platelet mean volumeOr dered By: Edie Ham on 05-22-2023 Platelet mean volume (Bld) [Entitic vol] 10.7 fL 6.2-12.[address] [facility] Determination of erythrocyte mean corpuscular volume (MCV)Ordered By: Edie Ham on 05-22-2023 MCV (RBC) [Entitic vol] 92.4 fL 81-99 [facility] Hematocrit Auto (Bld) [Volum e fraction]Ordered By: Edie Ham on 05-22-2023 Hematocrit (Bld) [Volume fraction] 41.1 % 37-[address] [facility] Laboratory - Chemistry and C hemistry - challengeOrdered By: Edie Ham on 05-22-2023 ALP [Catalytic activity/Vol] 60 U/L 45-[address] [facility] ALT [Catalytic activity/Vol] 33 U/L 13-[address] [facility] CO2 [Moles/Vol] 25.0 mmol/L 21.0-32.[address] [facility] Globulin (S) [Mass/Vol] 3.2 g/dL 2.2-4.2 [facility] Urea nitrogen/Creatinine [Mass ratio] 15.9 mg/mg 10-[address] [facility] Laboratory - Hematology and Cell countsOrdered By: Edie Ham on 05-22-2023 Erythrocyte distribution width (RBC) [Entitic vol] 47.3 fL 35.1-43.9 [facility] Erythrocyte distribution width (RBC) [Ratio] 13.9 % 11.6-14.[address] [facility] Immature granulocytes/100 WBC (Bld) 0.200 % 0.0-0.[address] [facility] Comment on above: IG% - Immature Granu locytes (promyelocytes, myelocytes and metamyelocytes) > 1% indicates that a LEFT SHIFT is Present. MCH (RBC) [Entitic mass] 29.4 pg 27.0-32.[address] [facility] Nucleated RBC/100 WBC (Bld) [Ratio] 0 % 0-[address] [facility] MCHC Auto (RBC) [Mass/Vol]Or dered By: Edie Ham on 05-22-2023 MCHC (RBC) [Mass/Vol] 31.9 g/dL 32-36 [facility] No Panel InformationOrdered By: Edie Ham on 05-22-2023 Estimated GFR (MDRD) Amer 64 mL/min >[address] [facility] Comment on above: GFR Calc Estimated GFR (MDRD) Non-Af Amer 53 mL/min >[address] [facility] Comment on above: Non- GFR Calc Platelets bldOrdered By: Galileo Ham on 05-22-2023 Platelets (Bld) [#/Vol] 167 10*3/uL 150-[address] [facility] Serum or plasma albumin alexa urement (mass/volume)Ordered By: Edie Ham on 05-22-2023 Albumin [Mass/Vol] 3.5 g/dL 3.2-5.0 [facility] Serum or plasma albumin/glob ulin mass ratioOrdered By: Edieshavon Ham on 05-22-2023 Albumin/Globulin [Mass ratio] 1.1 {ratio} 0.9-2.[address] [facility] Serum or plasma calcium alexa urement (mass/volume)Ordered By: Edie Ham on 05-22-2023 Calcium [Mass/Vol] 8.8 mg/dL 8.5-10.1 [facility] Serum or plasma creatinine m easurement (mass/volume)Ordered By: Edie Ham on 05-22-2023 Creatinine [Mass/Vol] 1.07 mg/dL 0.55-1.02 [facility] Comment on above: The validity of the calculated GFR & GFRAA in patients over 70 years has not been determined. Clinical correlation is essential. Serum or plasma urea nitroge n measurement (mass/volume)Ordered By: Edie Ham on 05-22-2023 Urea nitrogen [Mass/Vol] 17 mg/dL 7-[address] [facility] Thin prep Papanicolaou smear with manual screeningOrdered By: Edie Ham on 05-22-2023 Thin prep Papanicolaou smear with manual screening 26 U/L 15-[address] [facility] Thin prep Papanicolaou smear with manual screening 4 5-[address] [facility] Absolute lymphocyte countOrd ered By: Maia Bermudez on 05-12-2023 Lymphocytes Auto (Unsp spec) [#/Vol] 1.15 10*3/uL 0.83-4.[address] [facility] Basophil percentageOrdered B y: Maia Bermudez on 05-12-2023 Basophils/100 WBC (Bld) 0.5 % 0-1 [facility] Eosinophils/100 WBC (Bld) 1.1 % 0-[address] [facility] Neutrophils (Bld) [#/Vol] 4.6 10*3/uL 2.0-7.[address] [facility] Neutrophils/100 WBC (Bld) 72.8 % 47-[address] [facility] WBC (Bld) [#/Vol] 6.4 10*3/uL 4.4-11.0 [facility] Blood erythrocytes count (nu mber/volume)Ordered By: Maia Bermudez on 05-12-2023 RBC (Bld) [#/Vol] 4.50 10*6/uL 4.2-5.4 [facility] Blood hemoglobin measurement (mass/volume)Ordered By: Maia Bermudez on 05-12-2023 Hemoglobin (Bld) [Mass/Vol] 13.1 g/dL 12.0-15.[address] [facility] Blood lymphocytes/100 leukoc ytesOrdered By: Maia Bermudez on 05-12-2023 Lymphocytes/100 WBC (Bld) 18.1 % 19-[address] [facility] Blood monocytes/100 leukocyt esOrdered By: Maia Bermudez on 05-12-2023 Monocytes/100 WBC (Bld) 7.2 % 0-10 [facility] Blood platelet mean volumeOr dered By: Maia Bermudez on 05-12-2023 Platelet mean volume (Bld) [Entitic vol] 11.0 fL 6.2-12.[address] [facility] Determination of erythrocyte mean corpuscular volume (MCV)Ordered By: Maia Bermudez on 05-12-2023 MCV (RBC) [Entitic vol] 90.9 fL 81-99 [facility] Hematocrit Auto (Bld) [Volum e fraction]Ordered By: Maia Bermudez on 05-12-2023 Hematocrit (Bld) [Volume fraction] 40.9 % 37-[address] [facility] Laboratory - Hematology and Cell countsOrdered By: Maia Bermudez on 05-12-2023 Erythrocyte distribution width (RBC) [Entitic vol] 46.4 fL 35.1-43.9 [facility] Erythrocyte distribution width (RBC) [Ratio] 13.8 % 11.6-14.[address] [facility] Immature granulocytes/100 WBC (Bld) 0.300 % 0.0-0.[address] [facility] Comment on above: IG% - Immature Granu locytes (promyelocytes, myelocytes and metamyelocytes) > 1% indicates that a LEFT SHIFT is Present. MCH (RBC) [Entitic mass] 29.1 pg 27.0-32.[address] [facility] Nucleated RBC/100 WBC (Bld) [Ratio] 0 % 0-[address] [facility] MCHC Auto (RBC) [Mass/Vol]Or dered By: Maia Bermudez on 05-12-2023 MCHC (RBC) [Mass/Vol] 32.0 g/dL 32-36 [facility] Platelets bldOrdered By: Mauri Bermudez on 05-12-2023 Platelets (Bld) [#/Vol] 198 10*3/uL 150-[address] [facility] No Panel InformationOrdered By: Wei Rodriguez on 03-27-2023 Homocysteine 8.3 umol/L 3.2-10.[address] [facility] Serum or plasma methylmalona te measurement (moles/volume)Ordered By: Wei Rodriguez on 03-27-2023 Methylmalonate [Moles/Vol] 286 nmol/L 0-[address] [facility] Comment on above: Performed at: [address] [id number] Director: Alexey Sandoval MD, Phone: [phone] Absolute lymphocyte countOrd ered By: Wei Rodriguez on 03-25-2023 Lymphocytes Auto (Unsp spec) [#/Vol] 1.11 10*3/uL 0.83-4.[address] [facility] Basophil percentageOrdered B y: Wei Rodriguez on 03-25-2023 Basophils/100 WBC (Bld) 0.4 % 0-1 [facility] Bilirubin [Mass/Vol] 0.30 mg/dL 0.20-1.00 [facility] Comment on above: For patients on eltr ombopag therapy, use of Dimension [place] TBIL is not recommended. Chloride [Moles/Vol] 108 mmol/L 98-107 [facility] Eosinophils/100 WBC (Bld) 1.0 % 0-[address] [facility] Glucose [Mass/Vol] 95 mg/dL 74-106 [facility] Neutrophils (Bld) [#/Vol] 5.1 10*3/uL 2.0-7.[address] [facility] Neutrophils/100 WBC (Bld) 74.9 % 47-[address] [facility] Potassium [Moles/Vol] 4.4 mmol/L 3.5-5.1 [facility] Protein [Mass/Vol] 7.3 g/dL 6.4-8.2 [facility] Sodium [Moles/Vol] 139 mmol/L 136-145 [facility] WBC (Bld) [#/Vol] 6.8 10*3/uL 4.4-11.0 [facility] Blood erythrocytes count (nu mber/volume)Ordered By: Wei Rodriguez on 03-25-2023 RBC (Bld) [#/Vol] 4.36 10*6/uL 4.2-5.4 [facility] Blood hemoglobin measurement (mass/volume)Ordered By: Wei Rodriguez on 03-25-2023 Hemoglobin (Bld) [Mass/Vol] 12.8 g/dL 12.0-15.[address] [facility] Blood lymphocytes/100 leukoc ytesOrdered By: Wei Rodriguez on 03-25-2023 Lymphocytes/100 WBC (Bld) 16.4 % 19-[address] [facility] Blood monocytes/100 leukocyt esOrdered By: Wei Rodriguez on 03-25-2023 Monocytes/100 WBC (Bld) 7.0 % 0-10 [facility] Blood platelet mean volumeOr dered By: Wei Rodriguez on 03-25-2023 Platelet mean volume (Bld) [Entitic vol] 11.4 fL 6.2-12.[address] [facility] Determination of erythrocyte mean corpuscular volume (MCV)Ordered By: Wei Rodriguez on 03-25-2023 MCV (RBC) [Entitic vol] 93.1 fL 81-99 [facility] Hematocrit Auto (Bld) [Volum e fraction]Ordered By: Wei Rodriguez on 03-25-2023 Hematocrit (Bld) [Volume fraction] 40.6 % 37-[address] [facility] Laboratory - Chemistry and C hemistry - challengeOrdered By: Wei Rodriguez on 03-25-2023 ALP [Catalytic activity/Vol] 82 U/L 45-[address] [facility] ALT [Catalytic activity/Vol] 22 U/L 13-[address] [facility] CO2 [Moles/Vol] 25.0 mmol/L 21.0-32.[address] [facility] Cobalamin (Vitamin B12) [Mass/Vol] 256 pg/mL 211-[address] [facility] Globulin (S) [Mass/Vol] 3.7 g/dL 2.2-4.2 [facility] Urea nitrogen/Creatinine [Mass ratio] 25.5 mg/mg 10-[address] [facility] Laboratory - Hematology and Cell countsOrdered By: Wei Rodriguez on 03-25-2023 Erythrocyte distribution width (RBC) [Entitic vol] 46.0 fL 35.1-43.9 [facility] Erythrocyte distribution width (RBC) [Ratio] 13.5 % 11.6-14.[address] [facility] Immature granulocytes/100 WBC (Bld) 0.300 % 0.0-0.[address] [facility] Comment on above: IG% - Immature Granu locytes (promyelocytes, myelocytes and metamyelocytes) > 1% indicates that a LEFT SHIFT is Present. MCH (RBC) [Entitic mass] 29.4 pg 27.0-32.[address] [facility] Nucleated RBC/100 WBC (Bld) [Ratio] 0 % 0-[address] [facility] MCHC Auto (RBC) [Mass/Vol]Or dered By: Wei Rodriguez on 03-25-2023 MCHC (RBC) [Mass/Vol] 31.5 g/dL 32-36 [facility] No Panel InformationOrdered By: Wei Rodriguez on 03-25-2023 Estimated GFR (MDRD) Amer 71 mL/min >[address] [facility] Comment on above: GFR Calc Estimated GFR (MDRD) Non-Af Amer 58 mL/min >[address] [facility] Comment on above: Non- GFR Calc Thyroid Stimulating Hormone (TSH) 2.09 uIU/mL 0.358-3.[address] [facility] Platelets bldOrdered By: Wei Rodriguez on 03-25-2023 Platelets (Bld) [#/Vol] 219 10*3/uL 150-[address] [facility] Serum or plasma albumin alexa urement (mass/volume)Ordered By: Wei Rodriguez on 03-25-2023 Albumin [Mass/Vol] 3.6 g/dL 3.2-5.0 [facility] Serum or plasma albumin/glob ulin mass ratioOrdered By: Wei Rodriguez on 03-25-2023 Albumin/Globulin [Mass ratio] 1.0 {ratio} 0.9-2.[address] [facility] Serum or plasma calcium alexa urement (mass/volume)Ordered By: Wei Rodriguez on 03-25-2023 Calcium [Mass/Vol] 9.0 mg/dL 8.5-10.1 [facility] Serum or plasma creatinine m easurement (mass/volume)Ordered By: Wei Rodriguez on 03-25-2023 Creatinine [Mass/Vol] 0.98 mg/dL 0.55-1.02 [facility] Comment on above: The validity of the calculated GFR & GFRAA in patients over 70 years has not been determined. Clinical correlation is essential. Serum or plasma urea nitroge n measurement (mass/volume)Ordered By: Wei Rodriguez on 03-25-2023 Urea nitrogen [Mass/Vol] 25 mg/dL 7-[address] [facility] Thin prep Papanicolaou smear with manual screeningOrdered By: Wei Rodriguez on 03-25-2023 Thin prep Papanicolaou smear with manual screening 21 U/L 15-[address] [facility] Thin prep Papanicolaou smear with manual screening 6 5-[address] [facility] Absolute lymphocyte countOrd ered By: Edie Ham on 03-16-2023 Lymphocytes Auto (Unsp spec) [#/Vol] 1.27 10*3/uL 0.83-4.[address] [facility] Basophil percentageOrdered B y: Edie Ham on 03-16-2023 Basophils/100 WBC (Bld) 0.6 % 0-1 [facility] Bilirubin [Mass/Vol] 0.40 mg/dL 0.20-1.00 [facility] Comment on above: For patients on eltr ombopag therapy, use of Dimension [place] TBIL is not recommended. Chloride [Moles/Vol] 110 mmol/L 98-107 [facility] Eosinophils/100 WBC (Bld) 1.8 % 0-[address] [facility] Glucose [Mass/Vol] 80 mg/dL 74-106 [facility] Neutrophils (Bld) [#/Vol] 4.4 10*3/uL 2.0-7.[address] [facility] Neutrophils/100 WBC (Bld) 69.7 % 47-[address] [facility] Potassium [Moles/Vol] 3.9 mmol/L 3.5-5.1 [facility] Protein [Mass/Vol] 7.5 g/dL 6.4-8.2 [facility] Sodium [Moles/Vol] 140 mmol/L 136-145 [facility] WBC (Bld) [#/Vol] 6.3 10*3/uL 4.4-11.0 [facility] Blood erythrocytes count (nu mber/volume)Ordered By: Edie Ham on 03-16-2023 RBC (Bld) [#/Vol] 4.27 10*6/uL 4.2-5.4 [facility] Blood hemoglobin measurement (mass/volume)Ordered By: Edie Ham on 03-16-2023 Hemoglobin (Bld) [Mass/Vol] 12.6 g/dL 12.0-15.[address] [facility] Blood lymphocytes/100 leukoc ytesOrdered By: Edie Ham on 03-16-2023 Lymphocytes/100 WBC (Bld) 20.3 % 19-[address] [facility] Blood monocytes/100 leukocyt esOrdered By: Edie Ham on 03-16-2023 Monocytes/100 WBC (Bld) 7.4 % 0-10 [facility] Blood platelet mean volumeOr dered By: Edie Ham on 03-16-2023 Platelet mean volume (Bld) [Entitic vol] 11.2 fL 6.2-12.[address] [facility] Determination of erythrocyte mean corpuscular volume (MCV)Ordered By: Edie Ham on 03-16-2023 MCV (RBC) [Entitic vol] 93.4 fL 81-99 [facility] Erythrocyte sedimentation ra teOrdered By: Edie Ham on 03-16-2023 ESR (Bld) [Velocity] 15 mm/h 0-30 [facility] Hematocrit Auto (Bld) [Volum e fraction]Ordered By: Edie Ham on 03-16-2023 Hematocrit (Bld) [Volume fraction] 39.9 % 37-[address] [facility] Laboratory - Chemistry and C hemistry - challengeOrdered By: Edieshavon Ham on 03-16-2023 ALP [Catalytic activity/Vol] 84 U/L 45-[address] [facility] ALT [Catalytic activity/Vol] 22 U/L 13-[address] [facility] CO2 [Moles/Vol] 24.0 mmol/L 21.0-32.[address] [facility] Globulin (S) [Mass/Vol] 3.8 g/dL 2.2-4.2 [facility] Urea nitrogen/Creatinine [Mass ratio] 23.4 mg/mg 10-[address] [facility] Laboratory - Hematology and Cell countsOrdered By: Edieshavon Ham on 03-16-2023 Erythrocyte distribution width (RBC) [Entitic vol] 45.8 fL 35.1-43.9 [facility] Erythrocyte distribution width (RBC) [Ratio] 13.4 % 11.6-14.[address] [facility] Immature granulocytes/100 WBC (Bld) 0.200 % 0.0-0.[address] [facility] Comment on above: IG% - Immature Granu locytes (promyelocytes, myelocytes and metamyelocytes) > 1% indicates that a LEFT SHIFT is Present. MCH (RBC) [Entitic mass] 29.5 pg 27.0-32.[address] [facility] Nucleated RBC/100 WBC (Bld) [Ratio] 0 % 0-[address] [facility] MCHC Auto (RBC) [Mass/Vol]Or dered By: Edieshavon Ham on 03-16-2023 MCHC (RBC) [Mass/Vol] 31.6 g/dL 32-36 [facility] No Panel InformationOrdered By: Edie Ham on 03-16-2023 Anti-Nuclear Antibody Screen Negative Negative [facility] Comment on above: Performed at: [address] [id number] Director: Jarett Aden PhD, Phone: [phone] Estimated GFR (MDRD) Amer 61 mL/min >[address] [facility] Comment on above: GFR Calc Estimated GFR (MDRD) Non-Af Amer 50 mL/min >[address] [facility] Comment on above: Non- GFR Calc Hepatitis B Surface Antigen Non-Reactive Nonreactive [facility] Hepatitis C Antibody Non-Reactive Nonreactive [facility] Comment on above: Non Reactive: < 0.8 Equivocal: >/= 0.8 to < 1.0 Reactive: >/= 1.0The CDC recommends that a reactive/equivocal HCV antibody result be followed up by the HCV Nucleic Acid Amplificationtest (571013) Platelets bldOrdered By: Galileo Ham on 03-16-2023 Platelets (Bld) [#/Vol] 224 10*3/uL 150-[address] [facility] Serum cyclic citrullinated p eptide IgG antibody assay (units/volume)Ordered By: Edie Ham on 03-16-2023 Cyclic citrullinated peptide IgG Qn 6 units 0-[address] [facility] Comment on above: Negative <20 Weak po sitive 20 - 39 Moderate positive 40 - 59 Strong positive >59Performed at: [email or web address] Director: Jarett Aden PhD, Phone: [phone] Serum hepatitis B virus surf hugo antibody IgG detectionOrdered By: Edie Ham on 03-16-2023 HBV surface IgG Ql (S) Non-Reactive [facility] Comment on above: Non Reactive: Incons istent with immunity less than <10 mIU/mL Reactive: Consistent with immunity greater than or equal to 10 mIU/mL Serum or plasma C reactive p rotein measurement (mass/volume)Ordered By: Edie Ham on 03-16-2023 CRP [Mass/Vol] mg/L 0.0-3.[address] [facility] Comment on above: C-Reactive Protein ( CRP) provides useful information for thediagnosis, therapy and monitoring of inflammatory processesand associated diseases. For the evaluation of Relative Riskfor Cardiovascular Disease, a High Sensitivity CRP (HSCRP)should be ordered. Serum or plasma albumin alexa urement (mass/volume)Ordered By: Edie Ham on 03-16-2023 Albumin [Mass/Vol] 3.7 g/dL 3.2-5.0 [facility] Serum or plasma albumin/glob ulin mass ratioOrdered By: Edie Ham on 03-16-2023 Albumin/Globulin [Mass ratio] 1.0 {ratio} 0.9-2.[address] [facility] Serum or plasma calcium alexa urement (mass/volume)Ordered By: Edie Ham on 03-16-2023 Calcium [Mass/Vol] 9.1 mg/dL 8.5-10.1 [facility] Serum or plasma creatinine m easurement (mass/volume)Ordered By: Edie Ham on 03-16-2023 Creatinine [Mass/Vol] 1.11 mg/dL 0.55-1.02 [facility] Comment on above: The validity of the calculated GFR & GFRAA in patients over 70 years has not been determined. Clinical correlation is essential. Serum or plasma urea nitroge n measurement (mass/volume)Ordered By: Edie Ham on 03-16-2023 Urea nitrogen [Mass/Vol] 26 mg/dL 7-[address] [facility] Serum rheumatoid factor dete ctionOrdered By: Edie Ham on 03-16-2023 Rheumatoid factor Ql (S) 21.0 IU/mL <[address] [facility] Thin prep Papanicolaou smear with manual screeningOrdered By: Edie Ham on 03-16-2023 Thin prep Papanicolaou smear with manual screening 24 U/L 15-[address] [facility] Thin prep Papanicolaou smear with manual screening 6 5-[address] [facility] Absolute lymphocyte countOrd ered By: Dr. Rodriguez on 01-15-2023 Lymphocytes Auto (Unsp spec) [#/Vol] 1.62 10*3/uL 0.83-4.[address] [facility] Albumin Elph [Mass/Vol]Order ed By: Dr. Rodriguez on 01-15-2023 Albumin [Mass/Vol] 3.1 g/dL 2.9-4.4 [facility] Basophil percentageOrdered B y: Dr. Rodriguez on 01-15-2023 Basophils/100 WBC (Bld) 0.5 % 0-1 [facility] Bilirubin [Mass/Vol] 0.40 mg/dL 0.20-1.00 [facility] Comment on above: For patients on eltr ombopag therapy, use of Dimension [place] TBIL is not recommended. Chloride [Moles/Vol] 111 mmol/L 98-107 [facility] Eosinophils/100 WBC (Bld) 1.6 % 0-[address] [facility] Glucose [Mass/Vol] 99 mg/dL 74-106 [facility] Neutrophils (Bld) [#/Vol] 5.8 10*3/uL 2.0-7.[address] [facility] Neutrophils/100 WBC (Bld) 71.2 % 47-[address] [facility] Potassium [Moles/Vol] 4.6 mmol/L 3.5-5.1 [facility] Protein [Mass/Vol] 7.2 g/dL 6.4-8.2 [facility] Sodium [Moles/Vol] 141 mmol/L 136-145 [facility] WBC (Bld) [#/Vol] 8.1 10*3/uL 4.4-11.0 [facility] Blood erythrocytes count (nu mber/volume)Ordered By: Dr. Rodriguez on 01-15-2023 RBC (Bld) [#/Vol] 4.41 10*6/uL 4.2-5.4 [facility] Blood hemoglobin measurement (mass/volume)Ordered By: Dr. Rodriguez on 01-15-2023 Hemoglobin (Bld) [Mass/Vol] 12.9 g/dL 12.0-15.[address] [facility] Blood lymphocytes/100 leukoc ytesOrdered By: Dr. Rodriguez on 01-15-2023 Lymphocytes/100 WBC (Bld) 19.9 % 19-[address] [facility] Blood monocytes/100 leukocyt esOrdered By: Dr. Rodriguez on 01-15-2023 Monocytes/100 WBC (Bld) 6.4 % 0-10 [facility] Blood platelet mean volumeOr dered By: Dr. Rodriguez on 01-15-2023 Platelet mean volume (Bld) [Entitic vol] 11.2 fL 6.2-12.[address] [facility] Determination of erythrocyte mean corpuscular volume (MCV)Ordered By: Dr. Rodriguez on 01-15-2023 MCV (RBC) [Entitic vol] 92.7 fL 81-99 [facility] Hematocrit Auto (Bld) [Volum e fraction]Ordered By: Dr. Rodriguez on 01-15-2023 Hematocrit (Bld) [Volume fraction] 40.9 % 37-[address] [facility] Interpretation of serum or p lasma protein pattern by immunofixation (narrative resultOrdered By: Dr. Rodriguez on 01-15-2023 Protein Fractions Immunofixation Reuben [Interp] See comment [facility] Comment on above: Result: Not Observed Laboratory - Chemistry and C hemistry - challengeOrdered By: Dr. Rodriguez on 01-15-2023 ALP [Catalytic activity/Vol] 77 U/L 45-[address] [facility] ALT [Catalytic activity/Vol] 22 U/L 13-[address] [facility] CO2 [Moles/Vol] 25.0 mmol/L 21.0-32.[address] [facility] Globulin (S) [Mass/Vol] 3.5 g/dL 2.2-4.2 [facility] Urea nitrogen/Creatinine [Mass ratio] 22.8 mg/mg 10-[address] [facility] Laboratory - Hematology and Cell countsOrdered By: Dr. Rodriguez on 01-15-2023 Erythrocyte distribution width (RBC) [Entitic vol] 44.6 fL 35.1-43.9 [facility] Erythrocyte distribution width (RBC) [Ratio] 13.0 % 11.6-14.[address] [facility] Immature granulocytes/100 WBC (Bld) 0.400 % 0.0-0.[address] [facility] Comment on above: IG% - Immature Granu locytes (promyelocytes, myelocytes and metamyelocytes) > 1% indicates that a LEFT SHIFT is Present. MCH (RBC) [Entitic mass] 29.3 pg 27.0-32.[address] [facility] Nucleated RBC/100 WBC (Bld) [Ratio] 0 % 0-[address] [facility] MCHC Auto (RBC) [Mass/Vol]Or dered By: Dr. Rodriguez on 01-15-2023 MCHC (RBC) [Mass/Vol] 31.5 g/dL 32-36 [facility] No Panel InformationOrdered By: Dr. Rodriguez on 01-15-2023 Addendum Document Comment . [facility] Comment on above: Protein electrophore sis scan will follow via computer,mail, or piece work inspector delivery.Performed at: [email or web address] [id number] Director: Jarett Aden PhD, Phone: [phone] Estimated GFR (MDRD) Amer 54 mL/min >[address] [facility] Comment on above: GFR Calc Estimated GFR (MDRD) Non-Af Amer 45 mL/min >[address] [facility] Comment on above: Non- GFR Calc Hepatitis C Antibody Non-Reactive Nonreactive [facility] Comment on above: Non Reactive: < 0.8 Equivocal: >/= 0.8 to < 1.0 Reactive: >/= 1.0The CDC recommends that a reactive/equivocal HCV antibody result be followed up by the HCV Nucleic Acid Amplificationtest (294510) Thyroid Stimulating Hormone (TSH) 2.66 uIU/mL 0.358-3.[address] [facility] Vitamin D 25-Hydroxy 29.0 ng/mL [facility] Comment on above: Vitamin D 25(OH) Sta tus Range Deficiency <20 ng/mL (50nmol/L) Insufficiency 20 - 30 ng/mL (50 - 75 nmol/L) Sufficiency 30 - 100 ng/mL (75 - 250 nmol/L) Toxicity >100 ng/mL (>250 nmol/L) Platelets bldOrdered By: Dr. Rodriguez on 01-15-2023 Platelets (Bld) [#/Vol] 257 10*3/uL 150-[address] [facility] Serum [id number] measu rement by electrophoresisOrdered By: Dr. Rodriguez on 01-15-2023 Alpha 1 globulin Elph [Mass/Vol] 0.3 g/dL 0.0-0.[address] [facility] Alpha 1 globulin Elph [Mass/Vol] 0.9 g/dL 0.4-1.[address] [facility] Serum globulin measurement ( mass/volume)Ordered By: Dr. Rodriguez on 01-15-2023 Globulin (S) [Mass/Vol] 3.3 g/dL 2.2-3.9 [facility] Serum or plasma IgA measurem ent (mass/volume)Ordered By: Dr. Rodriguez on 01-15-2023 IgA [Mass/Vol] 138 mg/dL 64-[address] [facility] Serum or plasma IgG measurem ent (mass/volume)Ordered By: Dr. Rodriguez on 01-15-2023 IgG [Mass/Vol] 925 mg/dL [phone] [facility] Serum or plasma IgM measurem ent (mass/volume)Ordered By: Dr. Rodriguez on 01-15-2023 IgM [Mass/Vol] 85 mg/dL 26-[address] [facility] Serum or plasma albumin alexa urement (mass/volume)Ordered By: Dr. Rodriguez on 01-15-2023 Albumin [Mass/Vol] 3.7 g/dL 3.2-5.0 [facility] Serum or plasma albumin/glob ulin mass ratioOrdered By: Dr. Rodriguez on 01-15-2023 Albumin/Globulin [Mass ratio] 1.1 {ratio} 0.9-2.[address] [facility] Serum or plasma beta globuli n measurement by electrophoresis (mass/volume)Ordered By: Dr. Rodriguez on 01-15-2023 Beta globulin Elph [Mass/Vol] 1.1 g/dL 0.7-1.[address] [facility] Serum or plasma calcium alexa urement (mass/volume)Ordered By: Dr. Rodriguez on 01-15-2023 Calcium [Mass/Vol] 9.4 mg/dL 8.5-10.1 [facility] Serum or plasma creatinine m easurement (mass/volume)Ordered By: Dr. Rodriguez on 01-15-2023 Creatinine [Mass/Vol] 1.23 mg/dL 0.55-1.02 [facility] Comment on above: The validity of the calculated GFR & GFRAA in patients over 70 years has not been determined. Clinical correlation is essential. Serum or plasma gamma globul in measurement by electrophoresis (mass/volume)Ordered By: Dr. Rodriguez on 01-15-2023 Gamma globulin Elph [Mass/Vol] 0.9 g/dL 0.4-1.[address] [facility] Serum or plasma immunoelectr ophoresis interpretation (nominal result)Ordered By: Dr. Rodriguez on 01-15-2023 Interpretation IEP [Interp] Comment . [facility] Comment on above: No monoclonality det ected. Serum or plasma urea nitroge n measurement (mass/volume)Ordered By: Dr. Rodriguez on 01-15-2023 Urea nitrogen [Mass/Vol] 28 mg/dL 7-[address] [facility] Thin prep Papanicolaou smear with manual screeningOrdered By: Dr. Rodriguez on 01-15-2023 Thin prep Papanicolaou smear with manual screening 21 U/L 15-[address] [facility] Thin prep Papanicolaou smear with manual screening 5 5-[address] [facility] Thin prep Papanicolaou smear with manual screening 1.0 0.7-1.[address] [facility] Total protein bloodOrdered B y: Dr. Rodriguez on 01-15-2023 Protein [Mass/Vol] 6.4 g/dL 6.0-8.5 [facility] Absolute lymphocyte countOrd ered By: Dr. Rodriguez on 01-14-2023 Lymphocytes Auto (Unsp spec) [#/Vol] 1.61 10*3/uL 0.83-4.[address] [facility] Basophil percentageOrdered B y: Dr. Rodriguez on 01-14-2023 Basophils/100 WBC (Bld) 0.5 % 0-1 [facility] Chloride [Moles/Vol] 111 mmol/L 98-107 [facility] Eosinophils/100 WBC (Bld) 3.5 % 0-[address] [facility] Glucose [Mass/Vol] 94 mg/dL 74-106 [facility] Neutrophils (Bld) [#/Vol] 3.6 10*3/uL 2.0-7.[address] [facility] Neutrophils/100 WBC (Bld) 60.2 % 47-[address] [facility] Potassium [Moles/Vol] 4.0 mmol/L 3.5-5.1 [facility] Sodium [Moles/Vol] 141 mmol/L 136-145 [facility] WBC (Bld) [#/Vol] 6.0 10*3/uL 4.4-11.0 [facility] Blood erythrocytes count (nu mber/volume)Ordered By: Dr. Rodriguez on 01-14-2023 RBC (Bld) [#/Vol] 4.14 10*6/uL 4.2-5.4 [facility] Blood hemoglobin measurement (mass/volume)Ordered By: Dr. Rodriguez on 01-14-2023 Hemoglobin (Bld) [Mass/Vol] 12.0 g/dL 12.0-15.[address] [facility] Blood lymphocytes/100 leukoc ytesOrdered By: Dr. Rodriguez on 01-14-2023 Lymphocytes/100 WBC (Bld) 26.7 % 19-[address] [facility] Blood monocytes/100 leukocyt esOrdered By: Dr. Rodriguez on 01-14-2023 Monocytes/100 WBC (Bld) 8.6 % 0-10 [facility] Blood platelet mean volumeOr dered By: Dr. Rodriguez on 01-14-2023 Platelet mean volume (Bld) [Entitic vol] 11.0 fL 6.2-12.[address] [facility] Determination of erythrocyte mean corpuscular volume (MCV)Ordered By: Dr. Rodriguez on 01-14-2023 MCV (RBC) [Entitic vol] 92.5 fL 81-99 [facility] Hematocrit Auto (Bld) [Volum e fraction]Ordered By: Dr. Rodriguez on 01-14-2023 Hematocrit (Bld) [Volume fraction] 38.3 % 37-[address] [facility] Laboratory - Chemistry and C hemistry - challengeOrdered By: Dr. Rodriguez on 01-14-2023 CO2 [Moles/Vol] 25.0 mmol/L 21.0-32.[address] [facility] Urea nitrogen/Creatinine [Mass ratio] 25.6 mg/mg 10-[address] [facility] Laboratory - Hematology and Cell countsOrdered By: Dr. Rodriguez on 01-14-2023 Erythrocyte distribution width (RBC) [Entitic vol] 44.1 fL 35.1-43.9 [facility] Erythrocyte distribution width (RBC) [Ratio] 13.0 % 11.6-14.[address] [facility] Immature granulocytes/100 WBC (Bld) 0.500 % 0.0-0.[address] [facility] Comment on above: IG% - Immature Granu locytes (promyelocytes, myelocytes and metamyelocytes) > 1% indicates that a LEFT SHIFT is Present. MCH (RBC) [Entitic mass] 29.0 pg 27.0-32.[address] [facility] Nucleated RBC/100 WBC (Bld) [Ratio] 0 % 0-5 [facility] [Mass/Vol]Or dered By: Dr. Rodriguez on 01-14-2023 MCHC (RBC) [Mass/Vol] 31.3 g/dL 32-36 [facility] No Panel InformationOrdered By: Dr. Rodriguez on 01-14-2023 Estimated Creatinine Clearance Calc 42.57 ml/min [facility] Estimated GFR (MDRD) Amer 71 mL/min >[address] [facility] Comment on above: GFR Calc Estimated GFR (MDRD) Non-Af Amer 58 mL/min >[address] [facility] Comment on above: Non- GFR Calc Platelets bldOrdered By: Dr. Rodriguez on 01-14-2023 Platelets (Bld) [#/Vol] 211 10*3/uL 150-[address] [facility] Serum or plasma calcium alexa urement (mass/volume)Ordered By: Dr. Rodriguez on 01-14-2023 Calcium [Mass/Vol] 8.6 mg/dL 8.5-10.1 [facility] Serum or plasma creatinine m easurement (mass/volume)Ordered By: Dr. Rodriguez on 01-14-2023 Creatinine [Mass/Vol] 0.98 mg/dL 0.55-1.02 [facility] Comment on above: The validity of the calculated GFR & GFRAA in patients over 70 years has not been determined. Clinical correlation is essential. Serum or plasma urea nitroge n measurement (mass/volume)Ordered By: Dr. Rodriguez on 01-14-2023 Urea nitrogen [Mass/Vol] 25 mg/dL 7-[address] [facility] Thin prep Papanicolaou smear with manual screeningOrdered By: Dr. Rodriguez on 01-14-2023 Thin prep Papanicolaou smear with manual screening 5 5-[address] [facility] COVID-19 virus antigen assay Ordered By: Wei Rodriguez on 01-08-2023 SARS-CoV-2 (COVID-19) Ag IA.rapid Ql (Resp) [facility] COVID-19 virus antigen assay Ordered By: Dr. Rodriguez on 01-08-2023 SARS-CoV-2 (COVID-19) Ag IA.rapid Ql (Resp) [facility] COVID-19 virus antigen assay Ordered By: Reece Najera on 01-06-2023 SARS-CoV-2 (COVID-19) Ag IA.rapid Ql (Resp) [facility] COVID-19 virus antigen assay Ordered By: Dr. Najera on 01-06-2023 SARS-CoV-2 (COVID-19) Ag IA.rapid Ql (Resp) [facility] Absolute lymphocyte countOrd ered By: Dr. Whalen on 01-05-2023 Lymphocytes Auto (Unsp spec) [#/Vol] 1.14 10*3/uL 0.83-4.[address] [facility] Basophil percentageOrdered B y: Dr. Whalen on 01-05-2023 Basophils/100 WBC (Bld) 0.5 % 0-1 [facility] Chloride [Moles/Vol] 108 mmol/L 98-107 [facility] Eosinophils/100 WBC (Bld) 5.9 % 0-[address] [facility] Glucose [Mass/Vol] 95 mg/dL 74-106 [facility] Neutrophils (Bld) [#/Vol] 4.2 10*3/uL 2.0-7.[address] [facility] Neutrophils/100 WBC (Bld) 67.2 % 47-[address] [facility] Potassium [Moles/Vol] 4.1 mmol/L 3.5-5.1 [facility] Sodium [Moles/Vol] 138 mmol/L 136-145 [facility] WBC (Bld) [#/Vol] 6.2 10*3/uL 4.4-11.0 [facility] Blood erythrocytes count (nu mber/volume)Ordered By: Dr. Whalen on 01-05-2023 RBC (Bld) [#/Vol] 3.87 10*6/uL 4.2-5.4 [facility] Blood hemoglobin measurement (mass/volume)Ordered By: Dr. Whalen on 01-05-2023 Hemoglobin (Bld) [Mass/Vol] 11.5 g/dL 12.0-15.[address] [facility] Blood lymphocytes/100 leukoc ytesOrdered By: Dr. Whalen on 01-05-2023 Lymphocytes/100 WBC (Bld) 18.3 % 19-[address] [facility] Blood monocytes/100 leukocyt esOrdered By: Dr. Whalen on 01-05-2023 Monocytes/100 WBC (Bld) 7.9 % 0-10 [facility] Blood platelet mean volumeOr dered By: Dr. Whalen on 01-05-2023 Platelet mean volume (Bld) [Entitic vol] 11.0 fL 6.2-12.[address] [facility] Determination of erythrocyte mean corpuscular volume (MCV)Ordered By: Dr. Whalen on 01-05-2023 MCV (RBC) [Entitic vol] 92.5 fL 81-99 [facility] Hematocrit Auto (Bld) [Volum e fraction]Ordered By: Dr. Whalen on 01-05-2023 Hematocrit (Bld) [Volume fraction] 35.8 % 37-[address] [facility] Laboratory - Chemistry and C hemistry - challengeOrdered By: Dr. Whalen on 01-05-2023 CO2 [Moles/Vol] 24.0 mmol/L 21.0-32.[address] [facility] Urea nitrogen/Creatinine [Mass ratio] 21.0 mg/mg 10-[address] [facility] Laboratory - Hematology and Cell countsOrdered By: Dr. Whalen on 01-05-2023 Erythrocyte distribution width (RBC) [Entitic vol] 44.4 fL 35.1-43.9 [facility] Erythrocyte distribution width (RBC) [Ratio] 13.2 % 11.6-14.[address] [facility] Immature granulocytes/100 WBC (Bld) 0.200 % 0.0-0.[address] [facility] Comment on above: IG% - Immature Granu locytes (promyelocytes, myelocytes and metamyelocytes) > 1% indicates that a LEFT SHIFT is Present. MCH (RBC) [Entitic mass] 29.7 pg 27.0-32.[address] [facility] Nucleated RBC/100 WBC (Bld) [Ratio] 0 % 0-[address] [facility] MCHC Auto (RBC) [Mass/Vol]Or dered By: Dr. Whalen on 01-05-2023 MCHC (RBC) [Mass/Vol] 32.1 g/dL 32-36 [facility] No Panel InformationOrdered By: Dr. Whalen on 01-05-2023 Estimated Creatinine Clearance Calc 51.51 ml/min [facility] Estimated GFR (MDRD) Amer 88 mL/min >[address] [facility] Comment on above: GFR Calc Estimated GFR (MDRD) Non-Af Amer 73 mL/min >[address] [facility] Comment on above: Non- GFR Calc Platelets bldOrdered By: Dr. Whalen on 01-05-2023 Platelets (Bld) [#/Vol] 157 10*3/uL 150-[address] [facility] Serum or plasma calcium alexa urement (mass/volume)Ordered By: Dr. Whalen on 01-05-2023 Calcium [Mass/Vol] 8.5 mg/dL 8.5-10.1 [facility] Serum or plasma creatinine m easurement (mass/volume)Ordered By: Dr. Whalen on 01-05-2023 Creatinine [Mass/Vol] 0.81 mg/dL 0.55-1.02 [facility] Comment on above: The validity of the calculated GFR & GFRAA in patients over 70 years has not been determined. Clinical correlation is essential. Serum or plasma urea nitroge n measurement (mass/volume)Ordered By: Dr. Whalen on 01-05-2023 Urea nitrogen [Mass/Vol] 17 mg/dL 7-[address] [facility] Thin prep Papanicolaou smear with manual screeningOrdered By: Dr. Whalen on 01-05-2023 Thin prep Papanicolaou smear with manual screening 6 5-[address] [facility] Absolute lymphocyte countOrd ered By: Dr. Martinez on 01-02-2023 Lymphocytes Auto (Unsp spec) [#/Vol] 0.84 10*3/uL 0.83-4.[address] [facility] Basophil percentageOrdered B y: Dr. Martinez on 01-02-2023 Basophils/100 WBC (Bld) 0.4 % 0-1 [facility] Chloride [Moles/Vol] 116 mmol/L 98-107 [facility] Eosinophils/100 WBC (Bld) 1.4 % 0-[address] [facility] Glucose [Mass/Vol] 91 mg/dL 74-106 [facility] Neutrophils (Bld) [#/Vol] 6.1 10*3/uL 2.0-7.[address] [facility] Neutrophils/100 WBC (Bld) 80.0 % 47-[address] [facility] Potassium [Moles/Vol] 4.1 mmol/L 3.5-5.1 [facility] Sodium [Moles/Vol] 140 mmol/L 136-145 [facility] WBC (Bld) [#/Vol] 7.6 10*3/uL 4.4-11.0 [facility] Blood erythrocytes count (nu mber/volume)Ordered By: Dr. Martinez on 01-02-2023 RBC (Bld) [#/Vol] 3.98 10*6/uL 4.2-5.4 [facility] Blood hemoglobin measurement (mass/volume)Ordered By: Dr. Martinez on 01-02-2023 Hemoglobin (Bld) [Mass/Vol] 11.7 g/dL 12.0-15.[address] [facility] Blood lymphocytes/100 leukoc ytesOrdered By: Dr. Martinez on 01-02-2023 Lymphocytes/100 WBC (Bld) 11.0 % 19-[address] [facility] Blood monocytes/100 leukocyt esOrdered By: Dr. Martinez on 01-02-2023 Monocytes/100 WBC (Bld) 7.1 % 0-10 [facility] Blood platelet mean volumeOr dered By: Dr. Martinez on 01-02-2023 Platelet mean volume (Bld) [Entitic vol] 10.6 fL 6.2-12.[address] [facility] Determination of erythrocyte mean corpuscular volume (MCV)Ordered By: Dr. Martinez on 01-02-2023 MCV (RBC) [Entitic vol] 93.0 fL 81-99 [facility] Hematocrit Auto (Bld) [Volum e fraction]Ordered By: Dr. Martinez on 01-02-2023 Hematocrit (Bld) [Volume fraction] 37.0 % 37-[address] [facility] Laboratory - Chemistry and C hemistry - challengeOrdered By: Dr. Martinez on 01-02-2023 CK [Catalytic activity/Vol] 316 U/L 26-[address] [facility] CO2 [Moles/Vol] 22.0 mmol/L 21.0-32.[address] [facility] Urea nitrogen/Creatinine [Mass ratio] 30.3 mg/mg 10-[address] [facility] Laboratory - Hematology and Cell countsOrdered By: Dr. Martinez on 01-02-2023 Erythrocyte distribution width (RBC) [Entitic vol] 44.1 fL 35.1-43.9 [facility] Erythrocyte distribution width (RBC) [Ratio] 12.9 % 11.6-14.[address] [facility] Immature granulocytes/100 WBC (Bld) 0.100 % 0.0-0.[address] [facility] Comment on above: IG% - Immature Granu locytes (promyelocytes, myelocytes and metamyelocytes) > 1% indicates that a LEFT SHIFT is Present. MCH (RBC) [Entitic mass] 29.4 pg 27.0-32.[address] [facility] Nucleated RBC/100 WBC (Bld) [Ratio] 0 % 0-[address] [facility] MCHC Auto (RBC) [Mass/Vol]Or dered By: Dr. Martinez on 01-02-2023 MCHC (RBC) [Mass/Vol] 31.6 g/dL 32-36 [facility] No Panel InformationOrdered By: Dr. Martinez on 01-02-2023 Estimated Creatinine Clearance Calc 45.35 ml/min [facility] Estimated GFR (MDRD) Amer 76 mL/min >[address] [facility] Comment on above: GFR Calc Estimated GFR (MDRD) Non-Af Amer 62 mL/min >[address] [facility] Comment on above: Non- GFR Calc Platelets bldOrdered By: Dr. Martinez on 01-02-2023 Platelets (Bld) [#/Vol] 159 10*3/uL 150-[address] [facility] Serum or plasma calcium alexa urement (mass/volume)Ordered By: Dr. Martinez on 01-02-2023 Calcium [Mass/Vol] 9.0 mg/dL 8.5-10.1 [facility] Serum or plasma creatinine m easurement (mass/volume)Ordered By: Dr. Martinez on 01-02-2023 Creatinine [Mass/Vol] 0.92 mg/dL 0.55-1.02 [facility] Comment on above: The validity of the calculated GFR & GFRAA in patients over 70 years has not been determined. Clinical correlation is essential. Serum or plasma urea nitroge n measurement (mass/volume)Ordered By: Dr. Martinez on 01-02-2023 Urea nitrogen [Mass/Vol] 28 mg/dL 7-[address] [facility] Thin prep Papanicolaou smear with manual screeningOrdered By: Dr. Martinez on 01-02-2023 Thin prep Papanicolaou smear with manual screening 2 5-[address] [facility] DXA-AXIAL SKELETONon 023 LOWEST T-SCORE -2.3 [facility] No Panel Information [facility] Vital Signs Date Time Vital Sign Value Performing Clinician Facility 03-14-2025 11:31-0400 Body height 162.[address] Melba Philippe MD Work Phone: [facility] 03-14-2025 11:31-0400 Body mass index (BMI) [Ratio] 31.6 kg/m2 Dr. Melba Philippe MD Work Phone: [facility] 03-14-2025 11:31-0400 Body weight 83.[address] Melba Philippe MD Work Phone: [facility] 03-14-2025 11:31-0400 Diastolic blood pressure 79 mm[Hg] Dr. Melba Philippe MD Work Phone: [facility] 03-14-2025 11:31-0400 Heart rate 67 /min Dr. Melba Philippe MD Work Phone: [facility] 03-14-2025 11:31-0400 Respiratory rate 16 /min Dr. Melba Philippe MD Work Phone: [facility] 03-14-2025 11:31-0400 Systolic blood pressure 134 mm[Hg] Dr. Melba Philippe MD Work Phone: [facility] 02-09-2025 13:53-0400 Body height 162.[address] Melba Philippe MD Work Phone: [facility] 02-09-2025 13:53-0400 Body mass index (BMI) [Ratio] 32 kg/m2 Dr. Melba Philippe MD Work Phone: [facility] 02-09-2025 13:53-0400 Body temperature 97.6 [degF] Dr. Melba Philippe MD Work Phone: [facility] 02-09-2025 13:53-0400 Body weight 84.[address] Melba Philippe MD Work Phone: [facility] 02-09-2025 13:53-0400 Diastolic blood pressure 78 mm[Hg] Dr. Melba Philippe MD Work Phone: [facility] 02-09-2025 13:53-0400 Heart rate 78 /min Dr. Melba Philippe MD Work Phone: [facility] 02-09-2025 13:53-0400 Respiratory rate 16 /min Dr. Melba Philippe MD Work Phone: [facility] 02-09-2025 13:53-0400 SaO2% (BldA) [Mass fraction] 95 % Dr. Melba Philippe MD Work Phone: [facility] 02-09-2025 13:53-0400 Systolic blood pressure 148 mm[Hg] Dr. Melba Philippe MD Work Phone: [facility] 01-26-2025 13:34-0400 Body temperature 98 [degF] Dr. Melba Philippe MD Work Phone: [facility] 01-26-2025 13:34-0400 Diastolic blood pressure 82 mm[Hg] Dr. Melba Philippe MD Work Phone: [facility] 01-26-2025 13:34-0400 Heart rate 80 /min Dr. Melba Philippe MD Work Phone: [facility] 01-26-2025 13:34-0400 Respiratory rate 17 /min Dr. Melba Philippe MD Work Phone: [facility] 01-26-2025 13:34-0400 SaO2% (BldA) [Mass fraction] 94 % Dr. Melba Philippe MD Work Phone: [facility] 01-26-2025 13:34-0400 Systolic blood pressure 154 mm[Hg] Dr. Melba Philippe MD Work Phone: [facility] 01-20-2025 13:24-0400 Diastolic blood pressure 79 mm[Hg] Dr. Melba Philippe MD Work Phone: [facility] 01-20-2025 13:24-0400 Heart rate 77 /min Dr. Melba Philippe MD Work Phone: [facility] 01-20-2025 13:24-0400 Respiratory rate 18 /min Dr. Melba Philippe MD Work Phone: [facility] 01-20-2025 13:24-0400 SaO2% (BldA) [Mass fraction] 94 % Dr. Melba Philippe MD Work Phone: [facility] 01-20-2025 13:24-0400 Systolic blood pressure 145 mm[Hg] Dr. Melba Philippe MD Work Phone: [facility] 01-20-2025 12:52-0400 Body mass index (BMI) [Ratio] 30.9 kg/m2 Dr. Melba Philippe MD Work Phone: [facility] 01-20-2025 12:52-0400 Body weight 81.[address] Melba Philippe MD Work Phone: [facility] 01-18-2025 10:41-0400 Body height 162.[address] Melba Philippe MD Work Phone: [facility] 01-18-2025 10:41-0400 Body mass index (BMI) [Ratio] 31.9 kg/m2 Dr. Melba Philippe MD Work Phone: [facility] 01-18-2025 10:41-0400 Body temperature 97.8 [degF] Dr. Melba Philippe MD Work Phone: [facility] 01-18-2025 10:41-0400 Body weight 84.[address] Melba Philippe MD Work Phone: [facility] 01-18-2025 10:41-0400 Diastolic blood pressure 90 mm[Hg] Dr. Melba Philippe MD Work Phone: [facility] 01-18-2025 10:41-0400 Heart rate 70 /min Dr. Melba Philippe MD Work Phone: [facility] 01-18-2025 10:41-0400 Respiratory rate 19 /min Dr. Melba Philippe MD Work Phone: [facility] 01-18-2025 10:41-0400 SaO2% (BldA) [Mass fraction] 94 % Dr. Melba Philippe MD Work Phone: [facility] 01-18-2025 10:41-0400 Systolic blood pressure 154 mm[Hg] Dr. Melba Philippe MD Work Phone: [facility] 12-08-2024 08:11-0400 Body mass index (BMI) [Ratio] 31.7 kg/m2 Dr. Melba Philippe MD Work Phone: [facility] 12-08-2024 08:11-0400 Body weight 83.[address] Melba Philippe MD Work Phone: [facility] 12-08-2024 08:11-0400 Diastolic blood pressure 89 mm[Hg] Dr. Melba Philippe MD Work Phone: [facility] 12-08-2024 08:11-0400 Heart rate 89 /min Dr. Melba Philippe MD Work Phone: [facility] 12-08-2024 08:11-0400 Respiratory rate 18 /min Dr. Melba Philippe MD Work Phone: [facility] 12-08-2024 08:11-0400 Systolic blood pressure 149 mm[Hg] Dr. Melba Philippe MD Work Phone: [facility] 11-11-2024 09:51-0500 Body height 162.[address] Melba Philippe MD Work Phone: [facility] 11-11-2024 09:51-0500 Body mass index (BMI) [Ratio] 30.9 kg/m2 Dr. Melba Philippe MD Work Phone: [facility] 11-11-2024 09:51-0500 Body temperature 96.2 [degF] Dr. Melba Philippe MD Work Phone: [facility] 11-11-2024 09:51-0500 Body weight 81.[address] Melba Philippe MD Work Phone: [facility] 11-11-2024 09:51-0500 Diastolic blood pressure 82 mm[Hg] Dr. Melba Philippe MD Work Phone: [facility] 11-11-2024 09:51-0500 Heart rate 82 /min Dr. Melba Philippe MD Work Phone: [facility] 11-11-2024 09:51-0500 Respiratory rate 20 /min Dr. Melba Philippe MD Work Phone: [facility] 11-11-2024 09:51-0500 SaO2% (BldA) [Mass fraction] 96 % Dr. Melba Philippe MD Work Phone: [facility] 11-11-2024 09:51-0500 Systolic blood pressure 132 mm[Hg] Dr. Melba Philippe MD Work Phone: [facility] 10-12-2024 11:11-0500 Body mass index (BMI) [Ratio] 30.9 kg/m2 Dr. Melba Philippe MD Work Phone: [facility] 10-12-2024 11:11-0500 Body temperature 97 [degF] Dr. Melba Philippe MD Work Phone: [facility] 10-12-2024 11:11-0500 Body weight 81.[address] Melba Philippe MD Work Phone: [facility] 10-12-2024 11:11-0500 Diastolic blood pressure 88 mm[Hg] Dr. Melba Philippe MD Work Phone: [facility] 10-12-2024 11:11-0500 Heart rate 71 /min Dr. Melba Philippe MD Work Phone: [facility] 10-12-2024 11:11-0500 Respiratory rate 18 /min Dr. Melba Philippe MD Work Phone: [facility] 10-12-2024 11:11-0500 Systolic blood pressure 134 mm[Hg] Dr. Melba Philippe MD Work Phone: [facility] 10-11-2024 13:12-0500 Body mass index (BMI) [Ratio] 30.9 kg/m2 Dr. Melba Philippe MD Work Phone: [facility] 10-11-2024 13:12-0500 Body temperature 98 [degF] Dr. Melba Philippe MD Work Phone: [facility] 10-11-2024 13:12-0500 Diastolic blood pressure 65 mm[Hg] Dr. Melba Philippe MD Work Phone: [facility] 10-11-2024 13:12-0500 Heart rate 74 /min Dr. Melba Philippe MD Work Phone: [facility] 10-11-2024 13:12-0500 Respiratory rate 18 /min Dr. Melba Philippe MD Work Phone: [facility] 10-11-2024 13:12-0500 Systolic blood pressure 165 mm[Hg] Dr. Melba Philippe MD Work Phone: [facility] 10-08-2024 00:34-0500 Body weight 81.[address] Melba Philippe MD Work Phone: [facility] 09-27-2024 13:10-0500 Body mass index (BMI) [Ratio] 30.9 kg/m2 Dr. Melba Philippe MD Work Phone: [facility] 09-27-2024 13:10-0500 Body temperature 98.1 [degF] Dr. Melba Philippe MD Work Phone: [facility] 09-27-2024 13:10-0500 Diastolic blood pressure 68 mm[Hg] Dr. Melba Philippe MD Work Phone: [facility] 09-27-2024 13:10-0500 Heart rate 84 /min Dr. Melba Philippe MD Work Phone: [facility] 09-27-2024 13:10-0500 Respiratory rate 18 /min Dr. Melba Philippe MD Work Phone: [facility] 09-27-2024 13:10-0500 Systolic blood pressure 136 mm[Hg] Dr. Melba Philippe MD Work Phone: [facility] 09-07-2024 00:11-0500 Body weight 81.[address] Melba Philippe MD Work Phone: [facility] 09-06-2024 10:05-0500 Body mass index (BMI) [Ratio] 30.9 kg/m2 Dr. Melba Philippe MD Work Phone: [facility] 09-06-2024 10:05-0500 Body temperature 98.1 [degF] Dr. Melba Philippe MD Work Phone: [facility] 09-06-2024 10:05-0500 Diastolic blood pressure 78 mm[Hg] Dr. Melba Philippe MD Work Phone: [facility] 09-06-2024 10:05-0500 Heart rate 80 /min Dr. Melba Philippe MD Work Phone: [facility] 09-06-2024 10:05-0500 Respiratory rate 18 /min Dr. Melba Philippe MD Work Phone: [facility] 09-06-2024 10:05-0500 Systolic blood pressure 153 mm[Hg] Dr. Melba Philippe MD Work Phone: [facility] 08-07-2024 00:15-0500 Body weight 81.[address] Melba Philippe MD Work Phone: [facility] 07-26-2024 13:08-0500 Body mass index (BMI) [Ratio] 30.9 kg/m2 Dr. Melba Philippe MD Work Phone: [facility] 07-26-2024 13:08-0500 Body temperature 97.7 [degF] Dr. Melba Philippe MD Work Phone: [facility] 07-26-2024 13:08-0500 Diastolic blood pressure 64 mm[Hg] Dr. Melba Philippe MD Work Phone: [facility] 07-26-2024 13:08-0500 Heart rate 84 /min Dr. Melba Philippe MD Work Phone: [facility] 07-26-2024 13:08-0500 Respiratory rate 18 /min Dr. Melba Philippe MD Work Phone: [facility] 07-26-2024 13:08-0500 Systolic blood pressure 137 mm[Hg] Dr. Melba Philippe MD Work Phone: [facility] 07-08-2024 00:15-0400 Body weight 81.[address] Melba Philippe MD Work Phone: [facility] 11-25-2023 09:32-0400 Body height 162.[address] Wei Rodriguez Work Phone: [facility] 11-25-2023 09:32-0400 Body mass index (BMI) [Ratio] 30.7 kg/m2 Dr. Wei Rodriguez Work Phone: [facility] 11-25-2023 09:32-0400 Body temperature 97.4 [degF] Dr. Wei Rodriguez Work Phone: [facility] 11-25-2023 09:32-0400 Body weight 81.[address] Wei Rodriguez Work Phone: [facility] 11-25-2023 09:32-0400 Diastolic blood pressure 86 mm[Hg] Dr. Wei Rodriguez Work Phone: [facility] 11-25-2023 09:32-0400 Heart rate 73 /min Dr. Wei Rodriguez Work Phone: [facility] 11-25-2023 09:32-0400 Respiratory rate 17 /min Dr. Wei Rodriguez Work Phone: [facility] 11-25-2023 09:32-0400 SaO2% (BldA) [Mass fraction] 99 % Dr. Wei Rodriguez Work Phone: [facility] 11-25-2023 09:32-0400 Systolic blood pressure 154 mm[Hg] Dr. Wei Rodriguez Work Phone: [facility] 09-08-2023 10:07-0500 Body height 162.[address] Melba Philippe Work Phone: [facility] 09-08-2023 10:07-0500 Body mass index (BMI) [Ratio] 30.9 kg/m2 Dr. Melba Philippe Work Phone: [facility] 09-08-2023 10:07-0500 Body temperature 98.6 [degF] Dr. Melba Philippe Work Phone: [facility] 09-08-2023 10:07-0500 Body weight 81.[address] Melba Philippe Work Phone: [facility] 09-08-2023 10:07-0500 Diastolic blood pressure 82 mm[Hg] Dr. Melba Philippe Work Phone: [facility] 09-08-2023 10:07-0500 Heart rate 107 /min Dr. Melba Philippe Work Phone: [facility] 09-08-2023 10:07-0500 Respiratory rate 14 /min Dr. Melba Philippe Work Phone: [facility] 09-08-2023 10:07-0500 SaO2% (BldA) [Mass fraction] 96 % Dr. Melba Philippe Work Phone: [facility] 09-08-2023 10:07-0500 Systolic blood pressure 150 mm[Hg] Dr. Melba Philippe Work Phone: [facility] 08-24-2023 15:11-0500 Body height 162.[address] Wei Rodriguez Work Phone: [facility] 08-24-2023 15:11-0500 Body mass index (BMI) [Ratio] 30.9 kg/m2 Dr. Wei Rodriguez Work Phone: [facility] 08-24-2023 15:11-0500 Body temperature 97.9 [degF] Dr. Wei Rodriguez Work Phone: [facility] 08-24-2023 15:11-0500 Body weight 81.[address] Wei Rodriguez Work Phone: [facility] 08-24-2023 15:11-0500 Diastolic blood pressure 82 mm[Hg] Dr. Wei Rodriguez Work Phone: 3(547)343-367737 [place] [address] 08-24-2023 15:11-0500 Heart rate 78 /min Dr. Wei Rodriguez Work Phone: 9(765)912-389537 [place] [address] 08-24-2023 15:11-0500 Respiratory rate 16 /min Dr. Wei Rodriguez Work Phone: 3(762)231-843737 [place] [address] 08-24-2023 15:11-0500 SaO2% (BldA) [Mass fraction] 97 % Dr. Wei Rodriguez Work Phone: 9(452)438-663637 [place] [address] 08-24-2023 15:11-0500 Systolic blood pressure 130 mm[Hg] Dr. Wei Rodriguez Work Phone: 7(097)270-364037 [place] [address] 06-18-2023 10:30-0400 Body height 163.[address] Wei Rodriguez Work Phone: 5(345)037-934950 [place] [address] 06-18-2023 10:30-0400 Body weight 82.[address] Wei Rodriguez Work Phone: 8(739)771-957250 [place] [address] 06-09-2023 11:21-0400 Body temperature 98.5 [degF] Dr. Wei Rodriguez Work Phone: 4(053)196-772037 [place] [address] 06-09-2023 11:21-0400 Body weight 81.[address] Wei Rodriugez Work Phone: 8(910)435-018637 [place] [address] 06-09-2023 11:21-0400 Diastolic blood pressure 81 mm[Hg] Dr. Wei Rodriguez Work Phone: 3(262)173-732037 [place] [address] 06-09-2023 11:21-0400 Heart rate 70 /min Dr. Wei Rodriguez Work Phone: 7(062)053-456337 [place] [address] 06-09-2023 11:21-0400 Respiratory rate 16 /min Dr. Wei Rodriguez Work Phone: [facility] 06-09-2023 11:21-0400 SaO2% (BldA) [Mass fraction] 98 % Dr. Wei Rodriguez Work Phone: [facility] 06-09-2023 11:21-0400 Systolic blood pressure 155 mm[Hg] Dr. Wei Rodriguez Work Phone: 0(928)082-608637 [place] [address] 05-28-2023 11:30-0400 Body weight 83.[address] Wei Rodriguez Work Phone: 9(492)106-566337 [place] [address] 05-12-2023 11:07-0400 Body height 163.[address] Wei Rodriguez Work Phone: 6(690)755-731937 [place] [address] 05-12-2023 11:07-0400 Body weight 81.[address] Wei Rodriguez Work Phone: 1(741)614-334050 [place] [address] 05-08-2023 00:26-0400 Body weight 80.[address] Wei Rodriguez Work Phone: 8(994)247-602837 [place] [address] 05-05-2023 13:12-0400 Body temperature 98.4 [degF] Dr. Wei Rodriguez Work Phone: 3(885)257-519637 [place] [address] 05-05-2023 13:12-0400 Body weight 80.[address] Wei Rodriguez Work Phone: 2(584)079-328537 [place] [address] 05-05-2023 13:12-0400 Diastolic blood pressure 73 mm[Hg] Dr. Wei Rodriguez Work Phone: [facility] 05-05-2023 13:12-0400 Heart rate 84 /min Dr. Wei Rodriguez Work Phone: 1(752)976-191437 [place] [address] 05-05-2023 13:12-0400 Respiratory rate 16 /min Dr. Wei Rodriguez Work Phone: 0(700)119-836537 [place] [address] 05-05-2023 13:12-0400 SaO2% (BldA) [Mass fraction] 96 % Dr. Wei Rodriguez Work Phone: 4(727)362-827537 [place] [address] 05-05-2023 13:12-0400 Systolic blood pressure 123 mm[Hg] Dr. Wei Rodriguez Work Phone: [facility] 04-27-2023 12:12-0400 Body height 163.[address] Wei Rodriguez Work Phone: [facility] 04-27-2023 12:12-0400 Body weight 80.[address] Wei Rodriguez Work Phone: [facility] 04-08-2023 15:38-0400 Body mass index (BMI) [Ratio] 29.9 kg/m2 Dr. Wei Rodriguez Work Phone: [facility] 04-08-2023 15:38-0400 Body temperature 96.8 [degF] Dr. Wei Rodriguez Work Phone: [facility] 04-08-2023 15:38-0400 Body weight 80.[address] Wei Rodriguez Work Phone: [facility] 04-08-2023 15:38-0400 Diastolic blood pressure 108 mm[Hg] Dr. Wei Rodriguez Work Phone: [facility] 04-08-2023 15:38-0400 Heart rate 83 /min Dr. Wei Rodriguez Work Phone: [facility] 04-08-2023 15:38-0400 Respiratory rate 18 /min Dr. Wei Rodriguez Work Phone: [facility] 04-08-2023 15:38-0400 SaO2% (BldA) [Mass fraction] 96 % Dr. Wei Rodriguez Work Phone: [facility] 04-08-2023 15:38-0400 Systolic blood pressure 148 mm[Hg] Dr. Wei Rodriguez Work Phone: [facility] 01-15-2023 15:17-0400 Body temperature 98 [degF] Dr. Julio C [place] Work Phone: [facility] 01-15-2023 15:17-0400 Diastolic blood pressure 65 mm[Hg] Dr. Julio C Washington Work Phone: [facility] 01-15-2023 15:17-0400 Heart rate 90 /min Dr. Julio C Washington Work Phone: 8(089)091-473222 [place] [address] 01-15-2023 15:17-0400 Respiratory rate 14 /min Dr. Julio C Washington Work Phone: 5(837)102-569022 [place] [address] 01-15-2023 15:17-0400 SaO2% (BldA) [Mass fraction] 95 % Dr. Julio C Washington Work Phone: 9(945)022-380522 [place] [address] 01-15-2023 15:17-0400 Systolic blood pressure 114 mm[Hg] Dr. Julio C Washington Work Phone: 9(019)400-291222 [place] [address] 01-14-2023 12:44-0400 Body height 165.[address] Julio C [place] Work Phone: 4(271)457-479822 [place] [address] 01-14-2023 12:44-0400 Body weight 80.[address] Julio C [place] Work Phone: 3(820)052-036122 [place] [address] 01-14-2023 05:56-0400 Diastolic blood pressure 76 mm[Hg] Dr. Julio C [place] Work Phone: 5(606)112-254022 [place] [address] 01-14-2023 05:56-0400 Heart rate 68 /min Dr. Julio C Washington Work Phone: 2(125)325-196920 [place] [address] 01-14-2023 05:56-0400 Systolic blood pressure 119 mm[Hg] Dr. Julio C Washington Work Phone: 4(573)041-334022 [place] [address] 01-13-2023 21:00-0400 Respiratory rate 16 /min Dr. Julio C [place] Work Phone: 4(928)912-756422 [place] [address] 01-13-2023 21:00-0400 SaO2% (BldA) [Mass fraction] 96 % Dr. Julio C Washington Work Phone: 7(059)908-697322 [place] [address] 01-13-2023 15:37-0400 Body temperature 98.9 [degF] Dr. Julio C Washington Work Phone: 2(765)880-787013 [address] 01-13-2023 15:22-0400 Body mass index (BMI) [Ratio] 29.7 kg/m2 Dr. Julio C Washington Work Phone: 7(029)158-903822 [place] [address] 01-13-2023 15:22-0400 Body weight 80.[address] Julio C Washington Work Phone: 8(086)767-467722 [place] [address] 01-07-2023 12:55-0400 Body height 165.[address] Julio C Washington Work Phone: 0(245)368-583722 [place] [address] 01-06-2023 14:45-0400 Body temperature 98.5 [degF] Dr. Julio C Washington Work Phone: 6(605)344-216622 [place] [address] 01-06-2023 14:45-0400 Diastolic blood pressure 70 mm[Hg] Dr. Julio C Washington Work Phone: 8(457)373-774022 [place] [address] 01-06-2023 14:45-0400 Heart rate 78 /min Dr. Julio C Washington Work Phone: 4(885)682-723722 [place] [address] 01-06-2023 14:45-0400 Respiratory rate 18 /min Dr. Julio C Washington Work Phone: 6(278)043-243122 [place] [address] 01-06-2023 14:45-0400 SaO2% (BldA) [Mass fraction] 95 % Dr. Julio C Washington Work Phone: 2(205)878-874922 [place] [address] 01-06-2023 14:45-0400 Systolic blood pressure 130 mm[Hg] Dr. Julio C Washington Work Phone: 7(040)481-502222 [place] [address] 01-02-2023 14:54-0400 Body height 165.[address] Julio C Washington Work Phone: 6(708)565-274222 [place] [address] 01-02-2023 14:54-0400 Body mass index (BMI) [Ratio] 30.1 kg/m2 Dr. Julio C Washington Work Phone: 9(784)005-059922 [place] [address] 01-02-2023 14:54-0400 Body weight 82.[address] Julio C Washington Work Phone: 9(236)311-308522 [place] [address] 01-02-2023 13:43-0400 Body temperature 98 [degF] [facility] 01-02-2023 13:43-0400 Diastolic blood pressure 72 mm[Hg] [facility] 01-02-2023 13:43-0400 Heart rate 81 /min [facility] 01-02-2023 13:43-0400 Respiratory rate 16 /min [facility] 01-02-2023 13:43-0400 SaO2% (BldA) [Mass fraction] 96 % [facility] 01-02-2023 13:43-0400 Systolic blood pressure 149 mm[Hg] [facility] 01-02-2023 09:43-0400 Body height 165.[address] [facility] 01-02-2023 09:43-0400 Body mass index (BMI) [Ratio] 31.5 kg/m2 [facility] 01-02-2023 09:43-0400 Body weight 85.[address] [facility] 09-19-2022 09:54-0500 Body weight 83.55 kg Julio C Washington MD Work Phone: [facility] 09-10-2022 14:21-0500 Body height 162.6 cm Ciarra Burlingame PA-C Work Phone: [facility] 09-10-2022 14:21-0500 Body temperature 98.91 [degF] Ciarra Burlingame PA-C Work Phone: [facility] 09-10-2022 14:21-0500 Body weight 81.92 kg Ciarra Burlingame PA-C Work Phone: [facility] 09-10-2022 14:21-0500 Diastolic blood pressure 84 mm[Hg] Ciarra Brent PA-C Work Phone: [facility] 09-10-2022 14:21-0500 Heart rate 106 /min Ciarra Brent PA-C Work Phone: [facility] 09-10-2022 14:21-0500 SaO2% (BldA) [Mass fraction] 95 % Ciarra Burlingame PA-C Work Phone: [facility] 09-10-2022 14:21-0500 Systolic blood pressure 136 mm[Hg] Ciarra Kennedy PA-C Work Phone: [facility] 08-25-2022 15:14-0500 Body weight 81.06 kg Julio C Washington MD Work Phone: [facility] 08-25-2022 15:14-0500 Diastolic blood pressure 70 mm[Hg] Julio C Washington MD Work Phone: [facility] 08-25-2022 15:14-0500 Heart rate 68 /min Julio C Washington MD Work Phone: [facility] 08-25-2022 15:14-0500 Respiratory rate 16 /min Julio C Washington MD Work Phone: [facility] 08-25-2022 15:14-0500 Systolic blood pressure 126 mm[Hg] Julio C Washington MD Work Phone: [facility] 05-19-2022 13:23-0400 Body weight 82.1 kg Camila Tannhof CHEMISTRY INSTRUCTOR.FIRE EXTINGUISHER INSTALLER Work Phone: [facility] 05-19-2022 13:23-0400 Diastolic blood pressure 80 mm[Hg] Camila Tannhof CHEMISTRY INSTRUCTOR.FIRE EXTINGUISHER INSTALLER Work Phone: [facility] 05-19-2022 13:23-0400 Heart rate 81 /min Camila Tannhof CHEMISTRY INSTRUCTOR.FIRE EXTINGUISHER INSTALLER Work Phone: [facility] 05-19-2022 13:23-0400 Respiratory rate 16 /min Camila Tannhof CHEMISTRY INSTRUCTOR.FIRE EXTINGUISHER INSTALLER Work Phone: [facility] 05-19-2022 13:23-0400 SaO2% (BldA) [Mass fraction] 96 % Camila Tannhof CHEMISTRY INSTRUCTOR.FIRE EXTINGUISHER INSTALLER Work Phone: [facility] 05-19-2022 13:23-0400 Systolic blood pressure 150 mm[Hg] Camila Tannhof CHEMISTRY INSTRUCTOR.FIRE EXTINGUISHER INSTALLER Work Phone: [facility] 02-19-2022 12:20-0400 Body height 162.6 cm Julio C Washington MD Work Phone: [facility] 02-19-2022 12:20-0400 Body weight 81.74 kg Julio C Washington MD Work Phone: [facility] 02-19-2022 12:20-0400 Diastolic blood pressure 84 mm[Hg] Julio C Washington MD Work Phone: [facility] 02-19-2022 12:20-0400 Heart rate 84 /min Julio C Washington MD Work Phone: [facility] 02-19-2022 12:20-0400 Respiratory rate 16 /min Julio C Washington MD Work Phone: [facility] 02-19-2022 12:20-0400 Systolic blood pressure 130 mm[Hg] Julio C Washington MD Work Phone: [facility] Encounters Encounter Date Encounter Type Care Provider Facility Start: 03-14-2025 End: 03-14-[address] Melba Philippe MD Work Phone: -[facility] Start: 03-14-2025 End: 03-14-2025 Patient encounter procedure Pierre PICHARDO [facility] Work Phone: Start: 03-07-2025 End: 03-07-2025 Patient encounter procedure Peyton Crandall OD Work Phone: Ophthalmology Comment on above: Primary open-angle g laucoma, bilateral, mild stage (Primary Dx); Pseudophakia of both eyes; Presbyopia; Encounter for long-term (current) use of high-risk medication Start: 03-07-2025 End: 03-07-2025 ambulatory PEYTON RCANDALL Facility:[facility] Start: 02-28-2025 End: 03-01-2025 Refill Peyton Crandall OD Work Phone: Ophthalmology Comment on above: Refill Request Start: 02-09-2025 End: 02-09-2025 Patient encounter procedure Shamika GERBER -[facility] Work Phone: Start: 02-09-2025 End: 02-09-[address] Melba Philippe MD Work Phone: [facility] Work Phone: Start: 01-26-2025 End: 01-26-2025 Patient encounter procedure Jesus Byrne [place] -[facility] Work Phone: Start: 01-26-2025 End: 01-26-2025 ambulatory Melba Philippe Facility:[facility] Start: 01-21-2025 ambulatory Melba Philippe Facili ty:[facility] Start: 01-21-2025 Non-patient / Non-visit Dr. Snider Of gonzalo VALERO -[facility] Start: 01-20-2025 End: 01-20-[address] Hadley Jimenez MD -[facility] Work Phone: Start: 01-20-2025 End: 01-20-2025 ambulatory [place] Facility:[facility] Start: 01-20-2025 Non-patient / Non-visit Dr. Snider Of gonzalo VALERO -[facility] Start: 01-18-2025 End: 01-18-[address] Melba Philippe MD -[facility] Work Phone: Start: 01-18-2025 End: 01-18-[address] Melba Philippe MD Work Phone: [facility] Work Phone: Start: 01-11-2025 End: 01-11-[address] Melba Philippe MD Work Phone: [facility] Work Phone: Start: 01-11-2025 End: 01-11-[address] Melba Philippe MD -Laboratory, [place] Start: 01-11-2025 End: 01-11-2025 ambulatory [place] Facility:[facility] Start: 12-29-2024 End: 12-29-2024 ambulatory PEYTON CRANDALL Facility:[facility] Start: 12-20-2024 Non-patient / Non-visit Dr. Hadley fair MD -[facility] Start: 12-20-2024 End: 12-20-[address] Melba Philippe MD Work Phone: [facility] Work Phone: Start: 12-20-2024 End: 12-20-[address] Hadley Jimenez MD -Cardiovascular Services Work Phone: Start: 12-20-2024 End: 12-20-2024 ambulatory [place] Facility:[facility] Start: 12-08-2024 End: 12-08-[address] Melba Philippe MD Work Phone: [facility] Work Phone: Start: 12-08-2024 End: 12-08-[address] Hadley Jimenez MD -Laboratory Work Phone: Start: 12-08-2024 End: 12-08-[address] Hadley Jimenez MD -[facility] Work Phone: Start: 12-08-2024 End: 12-08-2024 ambulatory Shabnammykellisset [place]roland Facility:[facility] Start: 12-08-2024 End: 12-08-2024 [facility] Start: 12-01-2024 End: 12-01-2024 ambulatory PEYTON CRANDALL Facility:[facility] Start: 12-01-2024 End: 12-01-2024 Patient encounter procedure Peyton Crandall OD Work Phone: Ophthalmology Comment on above: Primary open-angle g laucoma, bilateral, mild stage (Primary Dx); Pseudophakia of both eyes; Presbyopia; Encounter for long-term (current) use of high-risk medication; Glaucoma suspect of both eyes Start: 11-22-2024 Non-patient / Non-visit Dr. Pratik cortes DO -[facility] Start: 11-22-2024 End: 11-22-[address] Melba Philippe MD Work Phone: [facility] Work Phone: Start: 11-22-2024 End: 11-22-[address] Melba Philippe MD -Pulmonary Services/Neurology Work Phone: Start: 11-22-2024 End: 11-22-2024 ambulatory Melba Philippe Facility:[facility] Start: 11-11-2024 End: 11-11-[address] Melba Philippe MD -[facility] Work Phone: Start: 11-11-2024 End: 11-11-2024 ambulatory Melba Philippe Facility:[facility] Start: 11-08-2024 End: 11-08-2024 Non-patient / Non-visit Dr. Jeronimo Graham MD -[facility] Work Phone: Start: 11-08-2024 End: 11-08-[address] Melba Philippe MD Work Phone: [facility] Work Phone: Start: 11-08-2024 End: 11-08-[address] Melba Philippe MD -Outpatient Bone Densitometry Work Phone: Start: 11-08-2024 End: 11-08-2024 ambulatory Melba Philippe Facility:[facility] Start: 11-03-2024 End: 11-03-2024 ambulatory PEYTON CRANDALL Facility:[facility] Start: 11-03-2024 End: 11-03-2024 Patient encounter procedure Peyton Crandall OD Work Phone: Ophthalmology Comment on above: Glaucoma suspect of both eyes (Primary Dx); Pseudophakia of both eyes; Presbyopia Start: 11-01-2024 End: 11-01-[address] Melba Philippe MD Work Phone: [facility] Work Phone: Start: 11-01-2024 End: 11-01-[address] [facility] Start: 11-01-2024 End: 11-01-2024 ambulatory [facility] Facility:[facility] Start: 10-28-2024 ambulatory [facility] Facili ty:[facility] Start: 10-28-2024 Non-patient / Non-visit Dr. Reji nelson MD -[facility] Start: 10-28-2024 End: 10-28-[address] Melba Philippe MD -Cardiovascular Services Work Phone: Start: 10-28-2024 End: 10-28-2024 ambulatory [facility] Facility:[facility] Start: 10-12-2024 End: 10-12-[address] Melba Philippe MD -[facility] Work Phone: Start: 10-12-2024 End: 10-12-2024 ambulatory [facility] Facility:[facility] Start: 10-11-2024 Non-patient / Non-visit Dr. Jimbo VALERO -[facility] Start: 10-11-2024 End: 11-04-[address] Sotero Lambert [facility] Work Phone: Start: 10-11-2024 End: 11-04-2024 ambulatory [facility] Facility:[facility] Start: 09-27-2024 Non-patient / Non-visit Dr. Jimbo VALERO [facility] Start: 09-27-2024 End: 10-07-[address] Sotero Lambert MD -[facility] Work Phone: Start: 09-27-2024 End: 10-07-2024 ambulatory [facility] Facility:[facility] Start: 09-06-2024 Non-patient / Non-visit [facility] Start: 09-06-2024 End: 09-06-2024 ambulatory [facility] Facility:[facility] Start: 09-06-2024 End: 09-06-[address] Sotero Lambert MD [facility] Work Phone: Start: 08-23-2024 Non-patient / Non-visit [facility] Start: 08-09-2024 Non-patient / Non-visit Dr[facility] Start: 07-26-2024 Non-patient / Non-visit Dr. [facility] Start: 07-26-2024 End: 08-06-2024 ambulatory [facility] Facility:[facility] Start: 07-26-2024 End: 08-06-[address] Sotero Lambert MD [facility] Work Phone: Start: 07-19-2024 Non-patient / Non-visit [facility] Start: 07-05-2024 End: 07-07-2024 ambulatory [facility] Facility:[facility] Start: 06-13-2024 End: 06-13-2024 ambulatory [facility] Facility:[facility] Start: 06-08-2024 End: 06-08-2024 ambulatory [facility] Facility:[facility] Start: 06-06-2024 End: 06-06-2024 ambulatory [facility] Facility:[facility] Start: 06-03-2024 End: 06-03-2024 ambulatory [facility] Facility:[facility] Start: 05-31-2024 End: 06-06-2024 ambulatory [facility] Facility:[facility] Start: 05-10-2024 ambulatory [facility] Facility: [facility] Start: 05-10-2024 End: 05-10-2024 Emergency department patient visit [facility] Facility:[facility] Start: 05-10-2024 ambulatory [facility] [place] Facili ty:[facility] Start: 05-10-2024 End: 05-10-2024 ambulatory [facility] Facility:[facility] Start: 05-05-2024 End: 05-06-2024 ambulatory [facility] Facility:[facility] Start: 05-05-2024 End: 05-05-2024 ambulatory [facility] Facility:[facility] Start: 05-02-2024 End: 05-02-2024 ambulatory PEYTON CRANDALL Facility:[facility] Start: 05-02-2024 End: 05-02-2024 Patient encounter procedure Peyton Crandall OD Work Phone: Ophthalmology Comment on above: Encounter for long-t erm (current) use of high-risk medication (Primary Dx); Glaucoma suspect of both eyes; Pseudophakia of both eyes Start: 05-01-2024 End: 05-01-2024 [facility] Start: 04-26-2024 End: 04-27-2024 Emergency department patient visit [facility] Facility:[facility] Start: 03-07-2024 End: 03-07-2024 [facility] Start: 12-08-2023 End: 12-08-[address] Wei Rodriguez Work Phone: [facility] Work Phone: Start: 12-08-2023 End: 12-08-[address] Wei Rodriguez Work Phone: [facility] Work Phone: Start: 11-25-2023 End: 11-25-[address] Wei Rodriguez Work Phone: [facility] Work Phone: Start: 11-16-2023 End: 11-16-[address] Wei Rodriguez Work Phone: [facility] Work Phone: Start: 11-16-2023 End: 11-16-[address] Wei Rodriguez Work Phone: [facility] Work Phone: Start: 10-29-2023 End: 10-29-[address] Wei Rodriguez Work Phone: [facility] Work Phone: Start: 10-29-2023 End: 10-29-[address] Wei Rodriguez Work Phone: [facility], [facility] Work Phone: Start: 09-29-2023 End: 09-29-[address] Melba Philippe Work Phone: [facility] Work Phone: Start: 09-29-2023 End: 09-29-[address] Melba Philippe Work Phone: [facility], [facility] Work Phone: Start: 09-08-2023 End: 09-08-[address] Melba Philippe Work Phone: [facility] Work Phone: Start: 08-24-2023 End: 08-24-[address] Wei Rodriguez Work Phone: [facility] Work Phone: Start: 08-21-2023 End: 08-21-[address] Wei Rodriguez Work Phone: [facility] Work Phone: Start: 08-21-2023 End: 08-21-[address] Wei Rodriguez Work Phone: [facility] - [facility] Work Phone: Start: 06-18-2023 End: 07-07-[address] Wie Rodriguez Work Phone: [facility] Work Phone: Start: 06-18-2023 End: 07-07-[address] [facility] Start: 06-09-2023 End: 06-09-[address] Wei Rodriguez Work Phone: [facility] Work Phone: Start: 05-28-2023 End: 06-06-[address] Wei [facility] Start: 05-22-2023 End: 05-22-[address] Wei Rodriguez Work Phone: [facility] Work Phone: Start: 05-22-2023 End: 05-22-[address] Wei Rodriguez Work Phone: [facility] Work Phone: Start: 05-12-2023 Non-patient / Non-visit Dr. Francisco Rodriguez Work Phone: [facility] Start: 05-12-2023 End: 05-12-[address] Wei Rodriguez Work Phone: [facility] Work Phone: Start: 05-12-2023 End: 05-12-[address] Wei Rodriguez Work Phone: [facility]-Cardiovascula r Services Work Phone: Start: 05-12-[address] Wei myles [facility] Start: 05-06-2023 Non-patient / Non-visit Dr. Francisco Rodriguez Work Phone: [facility] Start: 05-06-2023 End: 05-06-[address] Wei Rodriguez Work Phone: [facility] Work Phone: Start: 05-06-2023 End: 05-06-[address] Wei Rodriguez Work Phone: [facility]-Cardiovascula r Services Work Phone: Start: 05-05-2023 End: 05-05-[address] Wei Rodriguez Work Phone: [facility] Vascular Surgery Work Phone: Start: 04-30-2023 End: 04-30-2023 Patient encounter procedure Peyton Crandall OD Work Phone: Ophthalmology Comment on above: Encounter for long-t erm (current) use of high-risk medication (Primary Dx); Glaucoma suspect of both eyes; Pseudophakia of both eyes; Presbyopia Start: 04-27-2023 End: 04-27-[address] Wei Rodriguez Work Phone: [facility] Work Phone: Start: 04-27-2023 End: 05-07-[address] Wei Rodriguez Work Phone: [facility] Work Phone: Start: 04-27-2023 End: 05-07-[address] Wei Rodriguez [facility] Start: 03-27-2023 End: 03-27-[address] Julio C Washington Work Phone: [facility]-Laboratory Work Phone: Start: 03-25-2023 Non-patient / Non-visit Dr. Shavon Washington Work Phone: [facility] Start: 03-25-2023 End: 03-25-[address] Julio C Washington Work Phone: [facility] Work Phone: Start: 03-25-2023 End: 03-25-[address] Julio C Washington Work Phone: [facility]-Cardiovascula r Services Work Phone: Start: 03-23-2023 Non-patient / Non-visit Dr. Shavon Washington Work Phone: [facility] Start: 03-23-2023 End: 03-23-[address] Julio C Washington Work Phone: [facility] Work Phone: Start: 03-23-2023 End: 03-23-[address] Julio C Washington Work Phone: [facility]-Pulmonary Services/Neurology Work Phone: Start: 03-17-2023 End: 03-17-2023 Patient encounter procedure Peyton Crandall OD Work Phone: Ophthalmology Comment on above: Glaucoma suspect of both eyes (Primary Dx); Pseudophakia of both eyes; Presbyopia Start: 03-16-2023 End: 03-16-[address] Julio C Washington Work Phone: [facility] Work Phone: Start: 03-16-2023 End: 03-16-[address] Julio C Washington Work Phone: [facility] Work Phone: Start: 03-04-2023 Non-patient / Non-visit Dr. Shavon Washington Work Phone: [facility] Start: 03-03-2023 Non-patient / Non-visit Dr. Shavon Washington Work Phone: [facility] Start: 03-03-2023 End: 03-03-[address] Julio C Washington Work Phone: [facility] Work Phone: Start: 03-03-2023 End: 03-03-[address] Julio C Washington [facility] Work Phone: Start: 02-09-2023 Non-patient / Non-visit Dr. Shavon Washington Work Phone: [facility] Start: 02-09-2023 End: 02-09-[address] Julio C Washington Work Phone: [facility] Work Phone: Start: 02-09-2023 End: 02-09-[address] Julio C Washington [facility] Start: 01-20-2023 ambulatory Julio C cervantes MD Work Phone: [facility] Comment on above: Change in Primary Ph ysician/Facility Start: 01-15-2023 End: 01-15-[address] Julio C Washington Work Phone: [facility] Work Phone: Start: 01-15-2023 End: 01-15-[address] Julio C Washington Work Phone: [facility]-Laboratory Start: 01-09-2023 End: 01-09-[address] Julio C Washington Work Phone: [facility] Work Phone: Start: 01-09-2023 End: 01-09-[address] Julio C Washington Work Phone: [facility] Start: 01-06-2023 End: 01-15-2023 Evaluation and management of inpatient Dr. Julio C Washington Work Phone: [facility] Start: 01-06-2023 Non-patient / Non-visit Dr. Shavon Washington Work Phone: [facility] Start: 01-05-2023 Non-patient / Non-[facility]. [facility] Work Phone: [facility] Start: 01-04-2023 Non-patient / Non-visit Dr. Shavon Washington Work Phone: [facility] Start: 01-03-2023 Non-patient / Non-visit Dr. Shavon Washington Work Phone: [facility] Start: 01-02-2023 Non-patient / Non-visit Dr. Shavon julien [employer] Work Phone: [facility] Start: 01-02-2023 End: 01-06-2023 Evaluation and management of inpatient [facility]-Medical Surgical 3 Start: 01-02-2023 End: 01-06-[address] Julio C Washington Work Phone: [facility] Work Phone: Start: 12-17-2022 ambulatory Julio C cervantes MD Work Phone: [facility] Comment on above: Medical Care Start: 11-14-2022 End: 11-14-2022 Patient encounter procedure Peyton Crandall OD Work Phone: Ophthalmology Comment on above: Glaucoma suspect of both eyes (Primary Dx); Pseudophakia of both eyes; Presbyopia Start: 10-30-2022 ambulatory Julio C cervantes MD Work Phone: [facility] Comment on above: prior authorization ropinirole Start: 10-30-2022 E-mail encounter fro m caregiver Julio C Washington MD Work Phone: [facility] [place] Start: 10-28-2022 ambulatory Julio C cervantes MD Work Phone: [facility] [place] Comment on above: Ropinirole Start: 10-28-2022 Telephone encounter Julio C ralph MD Work Phone: [facility] [place] Comment on above: Insurance Authorizat ion (Ropinirole ) Start: 10-09-2022 ambulatory [facility] [place] Comment on above: Records Start: 10-09-2022 E-mail encounter vicky m caregiver [facility] [place] Start: 09-19-2022 ambulatory Julio C cervantes MD Work Phone: [facility] [place] Comment on above: Rheumatology Med Rec ords Start: 09-19-2022 End: 09-19-2022 Patient encounter procedure Julio C Washington MD Work Phone: [facility] [place] Comment on above: Fibromyalgia (Primar y Dx); Rheumatoid arthritis, involving unspecified site, unspecified whether rheumatoid factor present (HCC); Osteoporosis, unspecified osteoporosis type, unspecified pathological fracture presence Glaucoma suspect of both eyes (Primary Dx); Pseudophakia of both eyes; Presbyopia Start: 09-15-2022 ambulatory Julio C cervantes MD Work Phone: Family [facility] [place] Comment on above: Blood Test Results - Request Additional Tests Start: 09-12-2022 Telephone encounter Ciarra medley PA-C Work Phone: Family [facility] [place] Comment on above: records from outside Start: 09-10-2022 End: 09-10-2022 Patient encounter procedure Ciarra Kennedy PA-C Work Phone: General Surgery Comment on above: History of chest harmony n (Primary Dx); Encounter for screening colonoscopy; Symptoms of gastroesophageal reflux; History of colonic polyps Start: 09-10-2022 End: 09-10-2022 Subsequent hospital visit by physician Bone Density [facility], [facility] Work Phone: Radiology Comment on above: Age-related osteopor osis without current pathological fracture [M81.0] Start: 08-25-2022 End: 08-25-2022 Patient encounter procedure Julio C Washington MD Work Phone: [facility] [place] Comment on above: Fibromyalgia (Primar y Dx); Encounter for screening for osteoporosis; Encounter for screening colonoscopy; Symptoms of gastroesophageal reflux; Rheumatoid arthritis, involving unspecified site, unspecified whether rheumatoid factor present (HCC); Osteoporosis, unspecified osteoporosis type, unspecified pathological fracture presence; RLS (restless legs syndrome); Age-related osteoporosis without current pathological fracture; Chest pain, unspecified type Start: 08-25-2022 ambulatory Julio C cervantes MD Work Phone: [facility] Comment on above: Accessing Aug 28 Docs Attached Start: 05-19-2022 End: 05-19-2022 Patient encounter procedure Camila Arevalo APRN.CNP Work Phone: [facility] Comment on above: Fall, initial encoun ter (Primary Dx); Muscle strain; SOB (shortness of breath) Start: 03-19-2022 End: 03-19-2022 Patient encounter procedure Shreyas Sousa Work Phone: Podiatry Comment on above: Onychomycosis (Prima ry Dx); Ingrown toenail; Pain in toe of left foot; Pain in toe of right foot Start: 02-19-2022 End: 02-19-2022 Patient encounter procedure Julio C Washington MD Work Phone: [facility] Comment on above: RLS (restless legs s yndrome) (Primary Dx); Encounter to establish care; Myalgia; Nerve pain; Rheumatoid arthritis, involving unspecified site, unspecified whether rheumatoid factor present (HCC); Chronic right-sided low back pain with right-sided sciatica; Osteoporosis, unspecified osteoporosis type, unspecified pathological fracture presence; Migraine without aura, intractable, without status migrainosus; Ingrown toenail Procedures Date Procedure Procedure Detail Performing Clinician Start: 01-20-2025 CT angiography of co ronary arteries Dr. Melba Philippe MD Work Phone: Start: 01-20-2025 CT angiography of co ronary arteries Dr. Melba Philippe MD Work Phone: Start: 01-11-2025 Vitamin D, 25-hydrox y measurement Dr. Melba Philippe MD Work Phone: Comment on above: Vitamin D StatusDefi ciency: <20 ng/mL (50nmol/L)Insufficiency: 20-30 ng/mL (50-75 nmol/L)Sufficiency: 30-100 ng/mL (75-250 nmol/L)Toxicity: >100 ng/mL (>250 nmol/L) Start: 12-01-2024 Visual field xm uni/ bi w/interp extended exam Peyton Aelxandr Raz OD Work Phone: Start: 12-01-2024 Computerized ophthal alexus imaging optic nerve Peyton Alexandr Raz OD Work Phone: Start: 11-08-2024 Dual energy X-ray absorptiometry Dr. Melba Philippe MD Work Phone: Start: 11-03-2024 Visual field xm uni/ bi w/interp extended exam Peyton Crandall OD Work Phone: Start: 10-28-2024 Cardiovascular stres s test using pharmacologic stress agent Dr. Melba Philippe MD Work Phone: Start: 10-12-2024 Measurement of renal function Dr. Melba Philippe MD Work Phone: Comment on above: GFR Calc Start: 05-02-2024 End: 05-02-2024 Computerized ophthalmic imaging retina Peyton Alexandr Raz OD Work Phone: Start: 12-08-[address] Wei Rodriguez Work Phone: Start: 10-29-[address] Wei Rodriguez Work Phone: Start: 09-29-[address] Max Philippe Work Phone: Start: 12-15-2023 MRI of lumbar spine Dr. Wei Rodriguez Work Phone: Start: 05-06-2023 X-ray of lumbar spin e, two or three views Dr. Wei Rodriguez Work Phone: Start: 04-30-2023 End: 04-30-2023 Computerized ophthalmic imaging retina Peyton G Raz OD Work Phone: Start: 03-17-2023 Visual field xm uni/ bi w/interp extended exam Peyton Alexandr Raz OD Work Phone: Start: 03-03-2023 Cardiovascular stres s test using pharmacologic stress agent Dr. Julio C Washington Work Phone: Start: 01-09-2023 MRI of lower extremity Dr. Julio C Washington Work Phone: Start: 01-08-2023 Radiologic examinati on of knee Dr. Julio C Washington Work Phone: Start: 01-08-[address] Julio C Washington Work Phone: Start: 01-06-[address] Julio C Washington Work Phone: Start: 01-02-2023 Radiologic examinati on of knee Start: 11-14-2022 Visual field xm uni/ bi w/interp extended exam Peyton Alexandr Raz OD Work Phone: Start: 09-19-2022 Computerized ophthal alexus imaging optic nerve Peyton Alexandr Raz OD Work Phone: Start: 09-10-2022 Dxa bone density sheldon dy 1/> sites axial skel Julio C Washington MD Work Phone: Start: 02-19-2022 Adult depression scr eening assessment Julio C Washington MD Work Phone: H/O: surgery History of dilat ation and curettage Dr. Wei Rodriguez Work Phone: H/O: surgery History of dilat ation and curettage Dr. Sotero Lambert MD H/O: surgery History of dilat ation and curettage Dr. Sotero Lambert MD H/O: surgery History of dilat ation and curettage Dr. Sotero Lambert MD H/O: surgery History of dilat ation and curettage Dr. Sotero Lambert MD History of cataract extraction Hx of cataract surgery Dr. Wei Rodriguez Work Phone: History of cataract extraction Hx of cataract surgery Dr. Sotero Lambert MD History of cataract extraction Hx of cataract surgery Dr. Sotero Lambert MD History of cataract extraction Hx of cataract surgery Dr. Sotero Lambert MD History of cataract extraction Hx of cataract surgery Dr. Sotero Lambert MD History of decompres letitia of median nerve History of carpal tunnel surgery Dr. Wei Rodriguez Work Phone: History of decompres letitia of median nerve History of carpal tunnel surgery Dr. Sotero Lambert MD History of decompres letitia of median nerve History of carpal tunnel surgery Dr. Sotero Lambert MD History of decompres letitia of median nerve History of carpal tunnel surgery Dr. Sotero Lambert MD History of decompres letitia of median nerve History of carpal tunnel surgery Dr. Sotero Lambert MD Plan of Treatment Date Care Activity Detail Author Start: 09-16-2025 DIABETES SCREEN DIABETES SCREEN [facility] Start: 09-16-2025 Diabetes Screening Diabetes Screening [facility] Start: 09-10-2025 DIABETES SCREEN DIABETES SCREEN [facility] Start: 06-08-2025 End: 06-08-2025 Patient encounter procedure 06/08/2025 10:30 AM EDT Office Visit [facility] [address] [place] [address] Peyton Crandall, OD [address] [place] [address] 3 MTH F/U for plaquenil testing (10-2 and OCT nerve) and dilate (30 min). Ophthalmology Comment on above: 3 MTH F/U for plaquenil testing (10-2 an d OCT nerve) and dilate (30 min). Start: 05-08-2025 Influenza vaccination [facility] Start: 03-07-2025 End: 03-07-2025 Patient encounter procedure 03/07/2025 10:15 AM EDT Office Visit [facility] [address] [place] [address] Peyton Crandall, OD [address] [place] [address] [facility] [address] [address] 2 MTH F/U FOR IOP (R/S from provider out on 02/28) Ophthalmology Comment on above: 2 MTH F/U FOR IOP (R/S from provider out on 02/28) Start: 01-20-2025 Following clinical pathway protocol [facility] Start: 01-20-[address] [facility] Start: 12-29-2024 End: 12-29-2024 Patient encounter procedure 12/29/2024 10:15 AM EDT Office Visit [facility] [address] [place] [address] Peyton Crandall, OD [address] [place] [address] 1 mo iop Ophthalmology Comment on above: 1 mo iop Start: 12-08-2024 Evaluation of diagnostic study results [facility] Start: 12-01-2024 End: 12-01-2024 Patient encounter procedure 12/01/2024 10:30 AM EDT Office Visit [facility] [address] [place] [address] Peyton Crandall, OD [address] [place] [address] repeat 24-2 lids taped, IOP and possible dilation with oct nerve. Ophthalmology Comment on above: repeat 24-2 lids taped, IOP and possible dilation with oct nerve. Start: 11-22-2024 Measurement of respiratory function [facility] Start: 11-11-2024 Patient referral [facility] Work Phone: Start: 11-08-2024 Covid-19 Vaccine ( season) Covid-19 Vaccine ( season) [facility] Start: 11-03-2024 End: 11-03-2024 Patient encounter procedure 11/03/2024 10:30 AM EST Office Visit [facility] [address] [place] [address] Peyton Crandall, OD [address] [place] [address] 6 month f/u 24-2 and IOP Ophthalmology Comment on above: 6 month f/u 24-2 and IOP Start: 09-10-2024 Screening for osteoporosis Bone Density Screening [facility] Start: 09-07-2024 Advance Directive Discussion Advance Directive Discussion [facility] Start: 09-07-2024 Medicare Advantage Annual Wellness Visit Medicare Advantage Annual Wellness Visit [facility] Start: 05-08-2024 Influenza vaccination Influenza Vaccine (#1) [facility] Start: 10-10-2023 Covid-19 Vaccine ( season) Covid-19 Vaccine ( season) [facility] Start: 09-07-2023 Advance Directive Discussion Advance Directive Discussion [facility] Start: 05-08-2023 Covid-19 Vaccine ( season) Covid-19 Vaccine ( season) [facility] Start: 05-08-2023 Influenza vaccination [facility] Start: 04-27-2023 Patient referral [facility] Work Phone: Start: 03-27-2023 Methylmalonate measurement [facility] Start: 03-06-2023 Influenza vaccination INFLUENZA (#1) [facility] Comment on above: Postponed from 05/08/2022 (Declined at t his time) Start: 02-19-2023 Adult depression screening assessment DEPRESSION SCREENING [facility] Start: 02-04-[address] [facility] Start: 01-28-[address] [facility] Start: 01-21-2023 Blood chemistry [facility] Start: 01-15-2023 Serum immunofixation [facility] Start: 01-15-2023 Patient discharge [facility] Start: 01-15-[address] [facility] Start: 01-14-2023 Development of care plan [facility] Start: 01-13-[address] [facility] Start: 01-13-2023 Referral to service [facility] Start: 01-09-2023 Verification routine [facility] Start: 01-07-2023 Development of care plan [facility] Start: 01-07-2023 Developing a treatment plan [facility] Start: 01-07-[address] [facility] Start: 01-06-2023 Following clinical pathway protocol [facility] Start: 01-06-2023 Admission procedure [facility] Start: 01-06-2023 Measuring intake and output [facility] Start: 01-06-2023 Patient referral to dietitian [facility] Start: 01-06-2023 Referral to occupational therapist [facility] Start: 01-06-2023 Referral to service [facility] Start: 01-06-2023 Vital signs measurements [facility] Start: 01-06-[address] [facility] Start: 01-06-2023 Patient discharge [facility] Start: 01-03-[address] [facility] Start: 01-02-2023 Following clinical pathway protocol [facility] Start: 01-02-2023 Assessment of risk of venous thromboembolism [facility] Start: 01-02-2023 Insertion of catheter into peripheral vein [facility] Start: 01-02-2023 Providing care according to standard [facility] Start: 01-02-2023 Referral to occupational therapist [facility] Start: 01-02-2023 Referral to service [facility] Start: 01-02-[address] [facility] Start: 01-02-2023 Verification routine [facility] Start: 01-02-2023 Admission procedure [facility] Start: 12-25-2022 COVID-19 VACCINE (5 - Moderna series) COVID-19 VACCINE (5 - Moderna series) [facility] Start: 09-15-2022 End: 11-15-2022 C reactive protein [Mass/volume] in Serum or Plasma C-REACTIVE PROTEIN (CRP) Lab Routine Rheumatoid arthritis, involving unspecified site, unspecified whether rheumatoid factor present (HCC) Expected: 09/15/2022, Expires: 11/15/2022 [facility] Work Phone: Comment on above: Expected: 09/15/2022, Expires: 3 Start: 09-15-2022 End: 11-15-2022 Cyclic citrullinated peptide IgG Ab [Units/volume] in Serum or Plasma CCP ANTIBODY IGG Lab Routine Rheumatoid arthritis, involving unspecified site, unspecified whether rheumatoid factor present (HCC) Expected: 09/15/2022, Expires: 11/15/2022 [facility] Work Phone: Comment on above: Expected: 09/15/2022, Expires: 3 Start: 09-15-2022 End: 11-15-2022 Erythrocyte sedimentation rate SED RATE WESTERGREN Lab Routine Rheumatoid arthritis, involving unspecified site, unspecified whether rheumatoid factor present (HCC) Expected: 09/15/2022, Expires: 11/15/2022 [facility] Work Phone: Comment on above: Expected: 09/15/2022, Expires: 3 Start: 09-15-2022 End: 11-15-2022 Gamma glutamyl transferase [Enzymatic activity/volume] in Serum or Plasma GGT BLD Lab Routine Rheumatoid arthritis, involving unspecified site, unspecified whether rheumatoid factor present (HCC) Expected: 09/15/2022, Expires: 11/15/2022 [facility] Work Phone: Comment on above: Expected: 09/15/2022, Expires: 3 Start: 09-15-2022 End: 11-15-2022 Hemoglobin A1c in Blood HGB A1C Lab Routine Elevated glucose Expected: 09/15/2022, Expires: 11/15/2022 [facility] Work Phone: Comment on above: Expected: 09/15/2022, Expires: 3 Start: 09-15-2022 End: 11-15-2022 Magnesium [Mass/volume] in Serum or Plasma MAGNESIUM BLD Lab Routine Rheumatoid arthritis, involving unspecified site, unspecified whether rheumatoid factor present (HCC) Expected: 09/15/2022, Expires: 11/15/2022 [facility] Work Phone: Comment on above: Expected: 09/15/2022, Expires: 3 Start: 09-15-2022 End: 11-15-2022 Nuclear Ab [Presence] in Serum by Immunoassay JOEL BLOOD Lab Routine Rheumatoid arthritis, involving unspecified site, unspecified whether rheumatoid factor present (HCC) Expected: 09/15/2022, Expires: 11/15/2022 [facility] Work Phone: Comment on above: Expected: 09/15/2022, Expires: 3 Start: 09-15-2022 End: 11-15-2022 Rheumatoid factor [Units/volume] in Serum or Plasma RHEUMATOID FACTOR BL Lab Routine Rheumatoid arthritis, involving unspecified site, unspecified whether rheumatoid factor present (HCC) Expected: 09/15/2022, Expires: 11/15/2022 [facility] Work Phone: Comment on above: Expected: 09/15/2022, Expires: 3 Start: 09-15-2022 End: 11-15-2022 THYROID PEROXIDASE ANTIBODY BLOOD THYROID PEROXIDASE ANTIBODY BLOOD Lab Routine Rheumatoid arthritis, involving unspecified site, unspecified whether rheumatoid factor present (HCC) Elevated glucose Expected: 09/15/2022, Expires: 11/15/2022 [facility] Work Phone: Comment on above: Expected: 09/15/2022, Expires: 3 Start: 09-15-2022 End: 11-15-2022 Thyrotropin [Units/volume] in Serum or Plasma TSH BLD Lab Routine Rheumatoid arthritis, involving unspecified site, unspecified whether rheumatoid factor present (HCC) Elevated glucose Expected: 09/15/2022, Expires: 11/15/2022 [facility] Work Phone: Comment on above: Expected: 09/15/2022, Expires: 3 Start: 09-15-2022 End: 11-15-2022 Thyroxine (T4) free [Mass/volume] in Serum or Plasma T4 FREE/FREE THYROX Lab Routine Rheumatoid arthritis, involving unspecified site, unspecified whether rheumatoid factor present (HCC) Elevated glucose Expected: 09/15/2022, Expires: 11/15/2022 [facility] Work Phone: Comment on above: Expected: 09/15/2022, Expires: 3 Start: 09-15-2022 End: 11-15-2022 Triiodothyronine (T3) [Mass/volume] in Serum or Plasma T3 BLD Lab Routine Rheumatoid arthritis, involving unspecified site, unspecified whether rheumatoid factor present (HCC) Elevated glucose Expected: 09/15/2022, Expires: 11/15/2022 [facility] Work Phone: Comment on above: Expected: 09/15/2022, Expires: 3 Start: 09-15-2022 End: 11-15-2022 Urate [Mass/volume] in Serum or Plasma URIC ACID BLOOD Lab Routine Rheumatoid arthritis, involving unspecified site, unspecified whether rheumatoid factor present (HCC) Expected: 09/15/2022, Expires: 11/15/2022 [facility] Work Phone: Comment on above: Expected: 09/15/2022, Expires: 3 Start: 09-07-2022 ADVANCE DIRECTIVE DISCUSSION ADVANCE DIRECTIVE DISCUSSION [facility] Start: 09-07-2022 DEPRESSION ASSESSMENT DEPRESSION ASSESSMENT [facility] Start: 08-25-2022 End: 10-25-2022 25-hydroxyvitamin D3 [Mass/volume] in Serum or Plasma VITAMIN D 25 HYDROXY Lab Routine Rheumatoid arthritis, involving unspecified site, unspecified whether rheumatoid factor present (HCC) Age-related osteoporosis without current pathological fracture Expected: 08/25/2022 (Approximate), Expires: 10/25/2022 [facility] Work Phone: Comment on above: Expected: 08/25/2022 (Approximate), Expi res: 10/25/2022 Start: 08-25-2022 End: 10-25-2022 CBC W Auto Differential panel - Blood CBC + DIFF Lab Routine Symptoms of gastroesophageal reflux Rheumatoid arthritis, involving unspecified site, unspecified whether rheumatoid factor present (HCC) Chest pain, unspecified type Expected: 08/25/2022 (Approximate), Expires: 10/25/2022 [facility] Work Phone: Comment on above: Expected: 08/25/2022 (Approximate), Expi res: 10/25/2022 Start: 08-25-2022 End: 10-25-2022 Cobalamin (Vitamin B12) [Mass/volume] in Serum or Plasma VITAMIN B12 BLOOD Lab Routine Age-related osteoporosis without current pathological fracture Expected: 08/25/2022 (Approximate), Expires: 10/25/2022 [facility] Work Phone: Comment on above: Expected: 08/25/2022 (Approximate), Expi res: 10/25/2022 Start: 08-25-2022 End: 10-25-2022 Comprehensive metabolic 2000 panel - Serum or Plasma COMP METABOLIC PANEL Lab Routine Rheumatoid arthritis, involving unspecified site, unspecified whether rheumatoid factor present (HCC) Chest pain, unspecified type Expected: 08/25/2022 (Approximate), Expires: 10/25/2022 [facility] Work Phone: Comment on above: Expected: 08/25/2022 (Approximate), Expi res: 10/25/2022 Start: 08-25-2022 End: 10-25-2022 Lipid 1996 panel - Serum or Plasma LIPID PANEL BASIC Lab Routine Chest pain, unspecified type Expected: 08/25/2022 (Approximate), Expires: 10/25/2022 [facility] Work Phone: Comment on above: Expected: 08/25/2022 (Approximate), Expi res: 10/25/2022 Start: 05-08-2022 Influenza vaccination [facility] Start: 09-09-2021 COVID-19 VACCINE (4 - Booster for Moderna series) COVID-19 VACCINE (4 - Booster for Moderna series) [facility] Start: 07-05-2021 COVID-19 VACCINE (4 - Booster for Moderna series) COVID-19 VACCINE (4 - Booster for Moderna series) [facility] Start: 2019 RSV Vaccine (1 - 1-dose 75+ series) RSV Vaccine (1 - 1-dose 75+ series) [facility] Start: 2009 BONE DENSITY BONE DENSITY [facility] Start: 2009 Pneumococcal Vaccine: 65+ (1 - PCV) Pneumococcal Vaccine: 65+ (1 - PCV) [facility] Start: 2009 Pneumococcal Vaccine: 65+ (1 of 1 - PCV) Pneumococcal Vaccine: 65+ (1 of 1 - PCV) [facility] Start: 2009 PNEUMOCOCCAL: 65+ (1 - PCV) PNEUMOCOCCAL: 65+ (1 - PCV) [facility] Start: 2004 RSV Vaccine (1 - 1-dose 60+ series) RSV Vaccine (1 - 1-dose 60+ series) [facility] Start: 1994 Pneumococcal Vaccine: 50+ (1 of 1 - PCV) Pneumococcal Vaccine: 50+ (1 of 1 - PCV) [facility] Start: 1994 SHINGRIX VACCINE (1 of 2) SHINGRIX VACCINE (1 of 2) [facility] Start: 1989 DIABETES SCREEN DIABETES SCREEN [facility] Start: 1963 Urine microalbumin profile [facility] Start: 1962 Anxiety Screening Anxiety Screening [facility] Start: 1962 Depression Screening Depression Screening [facility] Start: 1962 HEPATITIS C SCREENING HEPATITIS C SCREENING [facility] Albumin [Moles/volum e] in Serum or Plasma [facility] Albumin/Globulin ratio [facility] Anion gap measurement [facility] Anion gap measurement [facility] Anion gap measurement [facility] Anion gap measurement [facility] Ankle brachial press ure index [facility] Basic metabolic 2008 panel with ionized calcium - Serum or Plasma [facility] BUN/Creatinine ratio [facility] BUN/Creatinine ratio [facility] BUN/Creatinine ratio [facility] BUN/Creatinine ratio [facility] C reactive protein [Mass/volume] in Serum or Plasma C-REACTIVE PROTEIN (CRP) Lab Routine Rheumatoid arthritis, involving unspecified site, unspecified whether rheumatoid factor present (HCC) 09/16/2022 4:04 PM EST [facility] Work Phone: Calcium [Mass/volume ] in Serum or Plasma [facility] Calcium [Mass/volume ] in Serum or Plasma [facility] Calcium [Mass/volume ] in Serum or Plasma [facility] Calcium [Mass/volume ] in Serum or Plasma [facility] Carbon dioxide, tota l [Moles/volume] in Serum or Plasma [facility] Carbon dioxide, tota l [Moles/volume] in Serum or Plasma [facility] Carbon dioxide, tota l [Moles/volume] in Serum or Plasma [facility] Carbon dioxide, tota l [Moles/volume] in Serum or Plasma [facility] CBC W Auto Different ial panel - Blood [facility] CBC W Auto Different ial panel - Blood [facility] Chloride [Moles/volu me] in Serum or Plasma [facility] Chloride [Moles/volu me] in Serum or Plasma [facility] Chloride [Moles/volu me] in Serum or Plasma [facility] Chloride [Moles/volu me] in Serum or Plasma [facility] Creatinine [Moles/volume] in Serum or Plasma [facility] Creatinine [Moles/volume] in Serum or Plasma [facility] Creatinine [Moles/volume] in Serum or Plasma [facility] Creatinine [Moles/volume] in Serum or Plasma [facility] CT angiography of coronary arteries [facility] CT angiography of coronary arteries [facility] CTA Heart and Hunt ry arteries W contrast IV [facility] Cyclic citrullinated peptide IgG Ab [Units/volume] in Serum or Plasma [facility]CP ANTIBODY IGG Lab Routine Rheumatoid arthritis, involving unspecified site, unspecified whether rheumatoid factor present ([facility]) 09/16/2022 4:04 PM EST [facility] Work Phone: D-dimer assay, quantitative [facility] DXA Bone [Mass/Area] Bone density [facility] End: 09-24-2023 DXA-AXIAL SKELETON DXA-AXIAL SKELETON Radiology Routine Age-related osteoporosis without current pathological fracture 1 Occurrences starting 08/25/2022 until 09/24/2023 [facility] Work Phone: Comment on above: 1 Occurrences starting 08/25/2022 until 09/24/2023 Electrophoresis: [id number] [facility] Electrophoresis: jaz ma globulin [facility] Erythrocyte sedimentation rate SED RATE WESTERGREN Lab Routine Rheumatoid arthritis, involving unspecified site, unspecified whether rheumatoid factor present ([facility]) 09/16/2022 4:[address] [facility] Work Phone: Gamma glutamyl transferase [Enzymatic activity/volume] in Serum or Plasma GGT BLD Lab Routine Rheumatoid arthritis, involving unspecified site, unspecified whether rheumatoid factor present ([facility]) 09/16/2022 4:[address] [facility] Work Phone: Globulin measurement [facility] Glucose [Mass/volume ] in Serum or Plasma [facility] Glucose [Mass/volume ] in Serum or Plasma [facility] Glucose [Mass/volume ] in Serum or Plasma [facility] Glucose [Mass/volume ] in Serum or Plasma [facility] Hematocrit [Volume Fraction] of Blood [facility] Hematocrit [Volume Fraction] of Blood [facility] Hematocrit [Volume Fraction] of Blood [facility] Hematocrit [Volume Fraction] of Blood [facility] Hemoglobin [Mass/vol ume] in Blood [facility] Hemoglobin [Mass/vol ume] in Blood [facility] Hemoglobin [Mass/vol ume] in Blood [facility] Hemoglobin [Mass/vol ume] in Blood [facility] Hemoglobin A1c in Blood HGB A1C Lab Routine Elevated glucose 09/16/2022 4:[address] [facility] Work Phone: IgA [Mass/volume] in Serum or Plasma [facility] IgG [Mass/volume] in Serum or Plasma [facility] IgM [Mass/volume] in Serum or Plasma [facility] Leukocytes [#/volume ] in Blood [facility] Leukocytes [#/volume ] in Blood [facility] Leukocytes [#/volume ] in Blood [facility] Leukocytes [#/volume ] in Blood [facility] Magnesium [Mass/volu me] in Serum or Plasma MAGNESIUM BLD Lab Routine Rheumatoid arthritis, involving unspecified site, unspecified whether rheumatoid factor present ([facility]) 09/16/2022 4:[address] [facility] Work Phone: Mean corpuscular hemoglobin concentration determination [facility] Mean corpuscular hemoglobin concentration determination [facility] Mean corpuscular hemoglobin concentration determination [facility] Mean corpuscular hemoglobin concentration determination [facility] Mean corpuscular hemoglobin determination [facility] Mean corpuscular hemoglobin determination [facility] Mean corpuscular hemoglobin determination [facility] Mean corpuscular hemoglobin determination [facility] Measurement of renal function [facility] Measurement of renal function [facility] Measurement of renal function [facility] Measurement of renal function [facility] Measurement of respiratory function [facility] Natriuretic peptide. B prohormone N-Terminal [Mass/volume] in Serum or Plasma [facility] Neutrophil count [facility] Neutrophil count [facility] Neutrophil count [facility] Neutrophil count [facility] Neutrophil percent differential count [facility] Neutrophil percent differential count [facility] Neutrophil percent differential count [facility] Neutrophil percent differential count [facility] Nuclear Ab [Presence ] in Serum by Immunoassay JOEL BLOOD Lab Routine Rheumatoid arthritis, involving unspecified site, unspecified whether rheumatoid factor present ([facility]) 09/16/2022 4:04 PM EST [facility] Work Phone: Patient referral [facility] Work Phone: Platelets [#/volume] in Blood [facility] Platelets [#/volume] in Blood [facility] Platelets [#/volume] in Blood [facility] Platelets [#/volume] in Blood [facility] Potassium [Moles/vol ume] in Serum or Plasma [facility] Potassium [Moles/vol ume] in Serum or Plasma [facility] Potassium [Moles/vol ume] in Serum or Plasma [facility] Potassium [Moles/vol ume] in Serum or Plasma [facility] Protein electrophore sis panel - Serum or Plasma [facility] End: 06-18-2023 Radiologic exam chest 2 views XR CHEST 2V FRONTAL/LAT Radiology Routine Fall, initial encounter SOB (shortness of breath) 1 Occurrences starting 05/19/2022 until 06/18/2023 [facility] [email or web address] Work Phone: Comment on above: 1 Occurrences starting 05/19/2022 until 06/18/2023 Red blood cell count [facility] Red blood cell count [facility] Red blood cell count [facility] Red blood cell count [facility] Red cell distributio n width determination [facility] Red cell distributio n width determination [facility] Red cell distributio n width determination [facility] Red cell distributio n width determination [facility] Rheumatoid factor [Units/volume] in Serum or Plasma RHEUMATOID FACTOR BL Lab Routine Rheumatoid arthritis, involving unspecified site, unspecified whether rheumatoid factor present (HCC) 09/16/2022 4:04 PM [facility] [employer] [email or web address] Work Phone: Serum protein electrophoresis [facility] Sodium [Moles/volume ] in Serum or Plasma [facility] Sodium [Moles/volume ] in Serum or Plasma [facility] Sodium [Moles/volume ] in Serum or Plasma [facility] Sodium [Moles/volume ] in Serum or Plasma [facility] THYROID PEROXIDASE ANTIBODY BLOOD THYROID PEROXIDASE ANTIBODY BLOOD Lab Routine Rheumatoid arthritis, involving unspecified site, unspecified whether rheumatoid factor present (HCC) Elevated glucose 09/16/2022 4:04 PM [facility] [employer] [facility] Work Phone: Thyrotropin [Units/volume] in Serum or Plasma TSH BLD Lab Routine Rheumatoid arthritis, involving unspecified site, unspecified whether rheumatoid factor present (HCC) Elevated glucose 09/16/2022 4:04 PM [facility] Work Phone: Thyroxine (T4) free [Mass/volume] in Serum or Plasma T4 FREE/FREE THYROX Lab Routine Rheumatoid arthritis, involving unspecified site, unspecified whether rheumatoid factor present (HCC) Elevated glucose 09/16/2022 4:04 PM [facility] [employer] Work Phone: Triiodothyronine (T3 ) [Mass/volume] in Serum or Plasma T3 BLD Lab Routine Rheumatoid arthritis, involving unspecified site, unspecified whether rheumatoid factor present (HCC) Elevated glucose 09/16/2022 4:04 PM [facility] [employer] [facility] [email or web address] Work Phone: Urate [Mass/volume] in Serum or Plasma URIC ACID BLOOD Lab Routine Rheumatoid arthritis, involving unspecified site, unspecified whether rheumatoid factor present (HCC) 09/16/2022 4:04 PM [facility] [employer] [email or web address] Work Phone: Urea nitrogen [Mass/volume] in Serum or Plasma [facility] Urea nitrogen [Mass/volume] in Serum or Plasma [facility] Urea nitrogen [Mass/volume] in Serum or Plasma [facility] Urea nitrogen [Mass/volume] in Serum or Plasma [facility] US Heart [facility] [employer] [facility] Vitamin D, 25-hydrox y measurement [facility] XR Chest PA and Lateral os [facility] Immunizations Immunization Date Immunization Notes Care Provider Fa cility 05-10-2021 COVID-19 vaccine, booster dose (MODERNA) Julio C Washington MD Work Phone: [facility] 10-24-2020 COVID-19 vaccine, fu ll dose (MODERNA) Julio C Washington MD Work Phone: [facility] 09-26-2020 COVID-19 vaccine, fu ll dose (MODERNA) Julio C Washington MD Work Phone: [facility] Payers Date Payer Category Payer Self-pay [id number] 2024 Self-pay 2023 Medicare (Managed Care) AEAGGIE CARDENAS [id number] 2022 Private Health Insurance [id number] 2022 Private Health Insurance [id number] 2022 Private Health Insurance [id number] 2009 Medicare MEDICARE MEDICAR E A AND B [id number] 2009-Present [phone] [address] [address] [place] [address] Medicare [id number] 2009 Medicare [id number] 2008 Unknown ANTHEM ANTHEM BC BS FEP PPO [id number] 2008-Present [phone] [address] [place] [address] PPO [id number] 2008 Unknown ANTHEM ANTHEM BC BS FEP PPO [id number] 2008-Present [phone] [address] [place] [address] PPO [id number] Unknown [id number] 2.16840.1.988615.3.579.2. 462 Unknown [id number] 2.16840.1.305106.3.579.2. 462 Unknown [id number] 2.16840.1.377371.3.579.2. 462 Unknown [id number] 2.16840.1.555575.3.579.2. 462 Unknown [id number] 2.16840.1.178920.3.579.2. 462 Unknown [id number] 2.16840.1.048925.3.579.2. 462 Unknown [id number] 2.16.840.1.523989.3.579.2. 462 Unknown [id number] 2.16.840.1.504402.3.579.2. 462 Unknown [id number] 2.16.840.1.211565.3.579.2. 462 Unknown [id number] 2.16.840.1.537388.3.579.2. 462 Unknown [id number] 2.16.840.1.029651.3.579.2. 462 Unknown [id number] 2.16.840.1.197414.3.579.2. 462 Unknown [id number] 2.16.840.1.679175.3.579.2. 462 Unknown [id number] 2.16.840.1.018835.3.579.2. 462 Unknown [id number] 2.16.840.1.893648.3.579.2. 462 Unknown [id number] 2.16.840.1.556919.3.579.2. 462 Unknown [id number] 2.16.840.1.484860.3.579.2. 462 Unknown [id number] 2.16.840.1.698579.3.579.2. 462 Unknown [id number] 2.16.840.1.760507.3.579.2. 462 Unknown [id number] 2.16.840.1.943849.3.579.2. 462 Unknown [id number] 2.16.840.1.237439.3.579.2. 462 Unknown [id number] 2.16.840.1.715755.3.579.2. 462 Unknown [id number] 2.16.840.1.830589.3.579.2. 462 Unknown [id number] 2.16.840.1.030492.3.579.2. 462 Unknown [id number] 2.16.840.1.033134.3.579.2. 462 Unknown [id number] 2.16.840.1.601985.3.579.2. 462 Unknown [id number] 2.16.840.1.993690.3.579.2. 462 Unknown [id number] 2.16.840.1.797667.3.579.2. 462 Unknown [id number] 2.16.840.1.214221.3.579.2. 462 Unknown [id number] 2.16.840.1.683922.3.579.2. 462 Unknown [id number] 2.16.840.1.120314.3.579.2. 462 Unknown [id number] 2.16.840.1.715361.3.579.2. 462 Unknown [id number] 2.16.840.1.462205.3.579.2. 462 Unknown [id number] 2.16840.1.915089.3.579.2. 462 Unknown [id number] 2.16.840.1.016067.3.579.2. 462 Unknown [id number] 2.16.840.1.680440.3.579.2. 462 Unknown [id number] 2.16.840.1.131057.3.579.2. 462 Unknown [id number] 2.16.840.1.857562.3.579.2. 462 Unknown [id number] 2.16840.1.779886.3.579.2. 462 Unknown [id number] 2.16840.1.782268.3.579.2. 462 Unknown [id number] 2.840.1.934530.3.579.2. 462 Social History Date Type Detail Facility Start: 02-19-2022 End: 12-01-2024 Tobacco smoking status NHIS Ex-smoker [facility] End: 09-07-1979 History of tobacco use Current smoker [facility] Start: 02-19-2022 End: 05-19-2022 Tobacco use and exposure Smokeless tobacco non-user [facility] Start: 02-19-2022 End: 03-07-2025 Alcohol intake Current drinker of alcohol (finding) [facility] Start: 02-16-2022 End: 08-24-2022 History SDOH Alcohol Frequency 3 [facility] Start: 02-16-2022 History SDOH Alcohol Std Drinks 1 [facility] Start: 02-19-2022 History SDOH Alcohol Comment Rare occasion - wine [facility] Start: 02-16-2022 History SDOH Social Connections Phone 5 [facility] Start: 02-16-2022 History SDOH Social Connections Membership 2 [facility] Start: 02-16-2022 History SDOH Physica l Activity DPW 7 [facility] Start: 1945 Sex Assigned At Female C [facility] Start: 02-09-2022 End: 05-19-2022 Exposure to SARS-CoV-2 (event) Not sure [facility] End: 09-07-1979 History of tobacco use Cigarette Smoker [facility] Start: 01-02-2023 End: 11-25-2023 Tobacco smoking status NHIS Unknown if ever smoked [facility] Start: 08-24-2022 End: 09-19-2022 History of Social function [facility] Start: 08-24-2022 End: 09-19-2022 Social connection and isolation panel [facility] In a typical week, h ow many times do you talk on the telephone with family, friends, or neighbors? Patient refused [facility] Are you now , , , , never or living with a partner? Refused [facility] (I/We) worried cassie er (my/our) food would run out before (I/we) got money to buy more. DK or Refused [facility] Start: 01-08-2022 Gender identity Identifies as female gender (finding) [facility] Start: 01-08-2022 Sexual orientation Heterosexual (sandy worthington) [facility] Start: 11-13-2024 End: 12-26-2024 Sex Female (finding) [facility] Goals Date Patient Goal Desired Activity /State Functional Status Date Assessment Result Facility 01-15-2023 Functional status Bedrest [facility] Work Phone: 01-14-2023 Functional status Bedrest [facility] Work Phone: 01-06-2023 Functional status Bedrest [facility] Work Phone: Mental Status Date Assessment Result Facility 01-20-2025 Cognitive function Level Of Cons ciousness Awake;Alert;Appropriate [facility] Work Phone: 01-15-2023 Cognitive function Voice/Name [facility] Work Phone: 01-14-2023 Cognitive function Voice/Name [facility] Work Phone: 01-11-2023 Cognitive function Appropriate;[facility] Work Phone: 01-06-2023 Cognitive function Appropriate;[facility] Work Phone: Clinical Notes 09-07-2006 to 03-07-2025 Peyton Crandall, PERLA - 03/07/2025 10:43 AM EDTTelephone Encounter - Camila Zuluaga - 02/28/2025 9:29 AM EDTTelephone Encounter - Camila Zuluaga - 02/28/2025 9:29 AM EDT Note Date & Type Note Facility 03-07-2025 Note HNO ID: [id number] Author: PEYTON CRANDALL OD Service: ? 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 Primary open-angle glaucoma, bilateral, mild stage (Primary) IOP: 14/14 today (target is 13-14 OU) OCT: 7-8 o'clock wedge thinning right, superior thinning left eye (overally decrease in average RNFL slowly right eye over past 3 years) 24-2: 12/01/24: inf defect left eye, correlates with OCT (repeat today with taped lids and superior defect gone both eyes compared to last visit) Cup/disc assymmetry: OS/OD Discussed insertion tips (patient having more trouble with right eye) Will continue latanoprost qhs OU 2. Pseudophakia of both eyes 3. Presbyopia Monovision- doing well 4. Encounter for long-term (current) use of high-risk medication Due for testing 04/2025 Follow-up in 3 months for plaquenil testing/complete I have confirmed and edited as necessary the relevant HPI, ophthalmic history, ROS, and the neuro exam findings as obtained by others. I have seen and examined Deric Juddjanyamparo. I have discussed the case and the management of this patient's care with the Resident/Fellow, if applicable. I also have reviewed and agree with the assessment and plan as stated above and agree with all of its relevant components. Peyton Crandall, OD March 07, 2025 10:44 AM [facility] 03-07-2025 History of Presen t illness Narrative 1. Primary open-angle glaucoma, bilateral, mild stage (Primary) IOP: 14/14 today (target is 13-14 OU) OCT: 7-8 o'clock wedge thinning right, superior thinning left eye (overally decrease in average RNFL slowly right eye over past 3 years) 24-2: 12/01/24: inf defect left eye, correlates with OCT (repeat today with taped lids and superior defect gone both eyes compared to last visit) Cup/disc assymmetry: OS/OD Discussed insertion tips (patient having more trouble with right eye) Will continue latanoprost qhs OU 2. Pseudophakia of both eyes 3. Presbyopia Monovision- doing well 4. Encounter for long-term (current) use of high-risk medication Due for testing 04/2025 Follow-up in 3 months for plaquenil testing/complete I have confirmed and edited as necessary the relevant HPI, ophthalmic history, ROS, and the neuro exam findings as obtained by others. I have seen and examined Deric Juddjanyamparo. I have discussed the case and the management of this patient's care with the Resident/Fellow, if applicable. I also have reviewed and agree with the assessment and plan as stated above and agree with all of its relevant components. Peyton Crandall, OD March 07, 2025 10:44 AM documented in this encounter [facility] 02-28-2025 Telephone encount er Note PATIENT ALMOST OUT OF EYE DROPS. HAD TO R/S 02/28/25 APPT DUE TO PROVIDER BEING OUT Prescription Refill Information The patient has been identified by name and date of : Yes Caregiver verified no other encounters exist for this prescription request: Yes Caregiver confirmed with patient/requestor that no other refills are due, in the near future, with this provider at this time: Yes The last office visit in the department: 12/29/24 Does the patient have a future office visit with this provider/department: Yes 03/07/25 Requested Prescriptions Pending Prescriptions Disp Refills latanoprost (XALATAN) 0.005 % ophthalmic solution 7.5 mL 2 Sig: Use 1 drop in both eyes daily at bedtime. Camila Zuluaga February 28, 2025 9:29 AM [facility] 02-28-2025 Miscellaneous Notes Formattin g of this note is different from the original. PATIENT ALMOST OUT OF EYE DROPS. HAD TO R/S 02/28/25 APPT DUE TO PROVIDER BEING OUT Prescription Refill Information The patient has been identified by name and date of : Yes Caregiver verified no other encounters exist for this prescription request: Yes Caregiver confirmed with patient/requestor that no other refills are due, in the near future, with this provider at this time: Yes The last office visit in the department: 12/29/24 Does the patient have a future office visit with this provider/department: Yes 03/07/25 Requested Prescriptions Pending Prescriptions Disp Refills latanoprost (XALATAN) 0.005 % ophthalmic solution 7.5 mL 2 Sig: Use 1 drop in both eyes daily at bedtime. Camila Zuluaga February 28, 2025 9:29 AM documented in this encounter [facility] 02-09-2025 Progress note [facility] 02-09-2025 Progress note Note Date/Time February 09, 2025 2:26pm [facility] [address] [place] [address] [place] [address] OFFICE VISIT Date of Service: 02/09/25 MR#: [id number] Acct: [id number] Name: DERIC MERIDA Rep #: [id number] : 1945 Provider: ZABRINA oGode Age/Sex: 79/F Location: [facility] Status: Signed Intake Vital Signs 01/20/25 12:52 02/09/25 13:53 Height 5 ft 4 in 5 ft 4 in Weight: 186 lb 6 oz BMI 32.0 BP 148/78 H Blood Pressure Location Lt brachial Position Sitting Respiration 16 Pulse 78 Pulse Source Doppler Temp 97.6 F L Temp Source Temporal Pulse Oximetry (%) 95 Oxygen Delivery Method room air Intake Visit Reasons: ACUTE SCIATIC PAIN Chief Complaint: right sided 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 Accompanied by: Self Is patient in pain?: No Allergies clopidogrel Adverse Reaction (Intermediate, Verified 02/09/25 13:52) Other diclofenac Adverse Reaction (Intermediate, Verified 02/09/25 13:52) Other hydrochlorothiazide Adverse Reaction (Intermediate, Verified 02/09/25 13:52) Other pregabalin (From Lyrica) Adverse Reaction (Intermediate, Verified 02/09/25 13:52) Other baclofen Adverse Reaction (Mild, Verified 02/09/25 13:52) Other carbamazepine (From Tegretol) Adverse Reaction (Mild, Verified 02/09/25 13:52) Other gabapentin Adverse Reaction (Mild, Verified 02/09/25 13:52) Other methylphenidate Adverse Reaction (Mild, Verified 02/09/25 13:52) Other temazepam Adverse Reaction (Mild, Verified 02/09/25 13:52) Other cyclobenzaprine Adverse Reaction (Intermediate, Uncoded 02/09/25 13:52) Other cymbalta Adverse Reaction (Intermediate, Uncoded 02/09/25 13:52) Other calm forte Adverse Reaction (Mild, Uncoded 02/09/25 13:52) Other Medications ?Medication ?Instructions ?Recorded ?Confirmed ?Type pantoprazole 40 mg tablet,delayed 40 mg PO DAILY 11/2402/09/25 History release (Protonix) hydroxychloroquine 200 mg tablet 200 mg PO BID 4 02/09/25 History ropinirole 2 mg tablet,extended 4 mg (2 x 2 mg) PO TID 3 months 06/08/24 02/09/25 Rx release 24 hr #540 tabs comp.stocking,thigh,long,x-lrg #2 ea 10/12/24 02/09/25 Rx amlodipine 2.5 mg tablet 2.5 mg PO QDAY #30 tabs 04/0 11/2902/09/25 Rx latanoprost 0.005 % eye drops 1 drp ophthalmic (eye) Q HS 12/08/24 02/09/25 History metoprolol succinate 50 mg 50 mg PO QDAY #30 tabs 0 11/2902/09/25 Rx tablet,extended release 24 hr cholecalciferol (vitamin D3) 1,250 1,250 mcg PO QWEEK #14 caps 01/18/25 02/09/25 Rx mcg (50,000 unit) capsule risedronate 150 mg tablet 150 mg PO QMONTH #7 tabs 02/09/25 Rx prednisone 5 mg tablets in a dose 5 mg PO DIRECTED #21 tabs 02/09/25 02/09/25 Rx pack tizanidine 2 mg capsule 2 mg PO Q8H PRN muscle spast icity 02/09/25 02/09/25 Rx #20 caps Have you fallen in the past year?: No PFSH Medical History Depression Nail abnormality Vitamin D deficiency Shortness of breath Chest pain CKD (chronic kidney disease) stage 3, GFR 30-59 ml/min Venous insufficiency Dyspnea on exertion Encounter for medication monitoring Surgical wound dehiscence 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 exposed Traumatic open wound of right lower leg with delayed healing History of DVT of lower extremity Cellulitis Post-thrombotic syndrome Abnormal facial hair Localized swelling of back Acute sinusitis, unspecified Colon cancer screening Nonscarring hair loss Odynophagia Foot pain Lumbar radiculopathy Migraines (09/07/1954) Bone fracture (01/02/23) Edema Numbness in feet Rheumatoid arthritis GERD (gastroesophageal reflux disease) Osteopenia High cholesterol Carpal tunnel syndrome History of blood transfusion Hx of blood clots Bicondylar fracture of right tibia Restless leg syndrome Hypertension Surgical History History of endoscopy History of hysterectomy (03/13/15) History of cataract surgery (03/21/14) History of colonoscopy (08/22/14) History of appendectomy (03/11/1962) History of dilatation and curettage Hx of foot surgery History of carpal tunnel surgery History of uterine suspension procedure Hx of cataract surgery H/O: hysterectomy Family History Sister Hx of blood clots Mother Hypertension Other Cancer Heart disease Social History household members: none Smoking Status: Former smoker quit date: 09/07/79 Electronic Cigarette Use: not used alcohol intake: current details: 2 x a week substance use type: does not use what type of physical activity do you participate in: walking HPI HPI Chief Complaint: right sided Details: DERIC MERIDA, is a 79 F who presents to the office today for complaints of right-sided lower back and leg pain. States history of right-sided sciatic painpain has developed over the last several days continuing to persist no improvement pain worse with movement has been taking previously prescribed tizanidine. Patient states previously she was given prednisone tizanidine when she had sciatic pain and that those were effective for pain relief. ROS Const Constitutional: No body ache, excessive sweating, fatigue, fever(s), frequent falls, headache(s), snoring, weakness, weight change, sleep problems or change in appetite Eyes Eyes: No blurry vision, change in vision, eye pain or Light sensitivity ENT ENT: No abnormal hearing, ear or mastoid pain, tinnitus, nasal congestion, headache(s), neck pain or sore throat Resp Respiratory: No cough, shortness of breath, snoring or wheezing Cardio Cardiology: Positive for leg pain with exertion; No chest pain at rest, chest pain with exertion, excessive sweating, shortness of breath, dyspnea on exertion, lightheadedness, orthopnea or palpitations Gastro GI: No abdominal pain, change in bowel habits, constipation, cramping, diarrhea,nausea/dyspepsia or vomiting Genitourinary-Female: No burning urination, painful urination, urinary incontinence, urinary frequency, blood in urine, abnormal periods or pelvic pain Musc Musculoskeletal: Positive for back pain, sciatica, restless legs, leg pain at night and leg pain with exertion; No abnormal gait, joint pain, limited range of motion, neck pain, numbness, stiffness, tingling or Arthritis Skin Skin: No dry skin, redness, lesions, itchy eyes, rash or wounds Neuro Neurology: Positive for restless legs; No abnormal gait, abnormal hearing, abnormal speech, dizziness, weakness, frequent falls, headache(s), memory loss, numbness or tingling Psych Psychiatric: No anxiety, No change in appetite, No depression, No memory loss and No Thoughts of harming yourself/Others Endo Endocrine: No cold intolerance, excessive sweating, fatigue, flushing, heat intolerance, increased thirst/drinking, increased hunger or weight change Aller/Imm Allergy/Immunologic: No itchy eyes, seasonal allergy symptoms, hives or wheezing Tushar/Lymp Hematologic/Lymphatic: No easy bleeding, easy bruising or enlarged lymph nodes Exam Const General: cooperative, healthy appearing and comfortable Nutritional Appearance: average body habitus Orientation: alert and oriented x3 HENMT Head: normal to inspection Ears: hearing grossly normal bilaterally Face and sinus: normal facial exam Mouth: oral mucosae normal Neck Neck: normal visual inspection Chest Chest palpation & inspection: normal inspection of the chest Resp Effort & Inspection: normal respiratory effort Auscultation: Bilateral: Diminished Lung Sounds Cardio Rate: regular rate Rhythm: regular rhythm Heart Sounds: S1 normal and S2 normal GI Inspection: normal to inspection Musc Musculoskeletal: Yes joint tenderness Thoracic/Lumbar Spine: kyphosis and lumbar spinal tenderness Sacroiliac joints: on the right Coccyx: tenderness Skin General: no rashes or lesions noted Neuro General: patient alert and patient oriented x3 Cognition: normal cognition Speech: speech normal Extrem General: pedal edema Coding Level of Care Code Established Pt Off vis,est,level 2 Patient Type Established History Problem Focused Exam Problem Focused Medical Decision Making Low Complexity Diagnoses Right sided sciatica M54.31 Time Spent (min) 30 Assessment and Plan Assessment and Plan (1) Right sided sciatica: Status: Acute Plan: Patient with previous history of right-sided sciatica has been seen by orthopedics in the past we will treat with prednisone taper and tizanidine as needed. If continued recurring bouts of sciatica may need referral to Ortho forfurther evaluation Medications: New prednisone see taper instructions 5 mg PO DIRECTED 21 tabs 0RF M54.31 - Sciatica, right side Refilled tizanidine 2 mg PO Q8H PRN 20 caps 0RF muscle spasticity M54.31 - Sciatica, right side Clinical Quality Measures Falls Risk Screening/Assistive Devices Have you fallen in the past year?: No 02/09/25 1426 <Electronically signed by Shamika collins NP-C> Date _ Shamika MCKENNAC Cosigner Signature: Date (if applicable) CC: ~ [employer] Work Phone: 1(969) 732-261004-24-2025 NoteHNO ID: [id number] Author: PEYTON CRANDALL OD Service: ? Author Type: FOUNDER PRESIDENT AND CEO Type: Progress Notes Filed: 12/29/2024 12:47 Note Text: 1. Primary open-angle glaucoma, bilateral, mild stage (Primary) IOP: 17/18 today (only small improvement on latanoprost qhs) OCT: 7-8 o'clock wedge thinning right, superior thinning left eye (overally decrease in average RNFL slowly right eye over past 3 years) 24-2: 12/01/24: inf defect left eye, correlates with OCT (repeat today with taped lids and superior defect gone both eyes compared to last visit) Cup/disc assymmetry: OS/OD Discussed insertion tips (patient having more trouble with right eye) Will continue latanoprost qhs OU and recheck IOP in 2 months 2. Pseudophakia of both eyes 3. Presbyopia Monovision- doing well 4. Encounter for long-term (current) use of high-risk medication Due for testing 04/2025 Follow-up in 2 months for IOP check Peyton Crandall, OD December 02, 2024 9:[address] [facility]04-03-2025 Evaluation note* Diagnosis Onset Date Resolution Status Admit Date Angina pectoris chronic December 9:12am Hypertension chronic December 08, 2 025 9:12am Rheumatoid arthritis February 05, 2019 chronic December 08, 2024 9:12am History of DVT of lower extremity resolved December 08, 2024 9:12am Depression acute January 18, 2025 10:30am Vitamin D deficiency acute January 18, 2025 10:30am Dyspnea on exertion chronic January 052024 10:30am Nail abnormality chronic January 10:30am Osteoporosis September 07, 2006 chronic January 052024 10:30am Restless leg syndrome chronic January 18, 2025 10:30am Venous insufficiency chronic January 18, 2025 10:30am Right sided sciatica acute January 26, 2025 1:23pm Right sided sciatica acute February 09, 2025 1:45pm [facility] Work Phone: 1(131) 786-694103-28-2025 NoteHNO ID: [id number] Author: PEYTON CRANDALL OD Service: ? Author Type: FOUNDER PRESIDENT AND CEO Type: Progress Notes Filed: 12/02/2024 09:18 Note Text: 1. Primary open-angle glaucoma, bilateral, mild stage (Primary) IOP: today OCT: 7-8 o'clock wedge thinning right, superior thinning left eye (overally decrease in average RNFL slowly right eye over past 3 years) 24-2: 12/01/24: inf defect left eye, correlates with OCT (repeat today with taped lids and superior defect gone both eyes compared to last visit) Cup/disc assymmetry: OS/OD After prolonged discussion with patient, decided to start treatment with latanoprost nightly in both eyes -educated pt on side effects 2. Pseudophakia of both eyes 3. Presbyopia Monovision- doing well 4. Encounter for long-term (current) use of high-risk medication Due for testing 04/2025 Follow-up in 1 month for IOP check Peyton Crandall, OD December 02, 2024 9:[address] [facility]03-28-2025 History of Present illness Narrative* Peyton Crandall, OD - 12/02/2024 9:00 AM EDT 1. Primary open-angle glaucoma, bilateral, mild stage (Primary) IOP: today OCT: 7-8 o'clock wedge thinning right, superior thinning left eye (overally decrease in average RNFL slowly right eye over past 3 years) 24-2: 12/01/24: inf defect left eye, correlates with OCT (repeat today with taped lids and superiordefect gone both eyes compared to last visit) Cup/disc assymmetry: OS/OD After prolonged discussion with patient, decided to start treatment with latanoprost nightly in both eyes -educated pt on side effects 2. Pseudophakia of both eyes 3. Presbyopia Monovision- doing well 4. Encounter for long-term (current) use of high-risk medication Due for testing 04/2025 Follow-up in 1 month for IOP check Peyton Crandall, OD December 02, 2024 9:00 AM documented [facility] NoteDate of Procedure 12/01/2024. Supervisor Television Chassis Repair Information Day Care Worker: . Start time: 10:39 AM. Stop time: 10:40 AM. Quality Right Eye Good. Left Eye Good. NFL Interpretation Right Eye Inferior loss (7-8 o clock defect ). Left Eye Superior loss. Ganglion Cell Layer Thickness Right Eye Inferior loss. Left Eye Inferior loss. Interval Change Right Eye Stable. Left Eye Stable.[id number] NoteDate of Procedure 12/01/2024. Supervisor Television Chassis Repair Information Day Care Worker: . Start time: 10:46 AM. Taped lids OU . Reliability Right Eye Good. Left Eye Good. Interpretation Right Eye Normal. Interval Change Right Eye Better. Left Eye Better. Notes Inferior defect left - [id number] NoteHNO ID: [id number] Author: PEYTON CRANDALL, OD Service: ? Author Type: FOUNDER PRESIDENT AND CEO Type: Progress Notes Filed: 11/03/2024 14:55 Note Text: 1. Glaucoma suspect of both eyes (Primary) IOP: 15/16 today OCT: Superior thinning left eye 24-2: 11/03/24: normal right eye, superior loss left eye (new)- (patient ad hard time sitting still for test) 30-2 04/30/23: superior defect both eye, lids? Small inf defect left eye, correlates with OCT Cup/disc assymmetry: OS/OD Previous records from [id number] show stable OCT and visual field compared to now Educated pt on superior visual field loss left eye Recommended repeat in 1 month with lids tape to rule out dermatochalasis If repeatable, will start drops Consider dilation and repeat OCT 2. Pseudophakia of both eyes 3. Presbyopia Continue with glasses Follow-up in 1 month for 24-2 (lids taped), IOP, OCT nerve (possible dilation if needed for OCT) Peyton Crandall, OD November 03, 2024 [facility] History of Present illness Narrative* Peyton Crandall, OD - 11/03/2024 2:52 PM EST 1. Glaucoma suspect of both eyes (Primary) IOP: 15/16 today OCT: Superior thinning left eye 24-2: 11/03/24: normal right eye, superior loss left eye (new)- (patient ad hard time sitting stillfor test) 30-2 04/30/23: superior defect both eye, lids? Small inf defect left eye, correlates with OCT Cup/disc assymmetry: OS/OD Previous records from show stable OCT and visual field compared to now Educated pt on superior visual field loss left eye Recommended repeat in 1 month with lids tape to rule out dermatochalasis If repeatable, will start drops Consider dilation and repeat OCT 2. Pseudophakia of both eyes 3. Presbyopia Continue with glasses Follow-up in 1 month for 24-2 (lids taped), IOP, OCT nerve (possible dilation if needed for OCT) Peyton Crandall, PERLA November 03, 2024 2:53 PM documented in this encounter[facility]25 NoteDate of Procedure 11/03/2024. Reliability Right Eye Good. Left Eye Good. Interpretation Right Eye Normal. Left Eye Altitudinal defect. Interval Change Right Eye Stable. Left Eye Worse.[id number] Evaluation note* Diagnosis Onset Date Resolution Status Admit Date Dyspnea on exertion chronic Febru mendel2024 11:00am Hypertension chronic October 11:00am Osteoporosis September 07, 2006 chronic Febru mendel 2024 11:00am Restless leg syndrome chronic Feb ruary 2024 11:00am Venous insufficiency chronic uary 2024 11:00am Shortness of breath acute November 11, 2024 9:47am Chest pain chronic November 11 9:47am Dyspnea on exertion chronic November 11, 2024 9:47am Hypertension chronic November 11, 025 9:47am Osteoporosis September 07, 2006 chronic November 11, 2024 9:47am Angina pectoris chronic December 9:12am Hypertension chronic December 08 9:12am Rheumatoid arthritis February 05, 2019 chronic December 08, 2024 9:12am History of DVT of lower extremity resolved December 08, 2024 9:12am Depression acute January 18, 2025 10:30am Vitamin D deficiency acute January 18, 2025 10:30am Dyspnea on exertion chronic January 052024 10:30am Nail abnormality chronic January 10:30am Osteoporosis September 07, 2006 chronic January 052024 10:30am Restless leg syndrome chronic January 18, 2025 10:30am Venous insufficiency chronic January 18, 2025 10:30am Right sided sciatica acute January 26, 2025 1:23pm Right sided sciatica acute February 09, 2025 1:45pm [facility] [employer] Work Phone: 1(753) 434-659808-26-2024 NoteHNO ID: [id number] Author: PEYTON CRANDALL OD Service: ? Author Type: FOUNDER PRESIDENT AND CEO Type: Progress Notes Filed: 05/02/2024 13:43 Note Text: 1. Encounter for long-term (current) use of high-risk medication - Indication: RA - no signs of toxicity today on exam - OCT (05/02/24): normal - Visual Field 10-2 (05/02/24): normal - has been using plaquenil 400 mg daily since 03/2023 - The recommended dosage is the lower of 5 mg/kg/day based on real body weight or 6.5 mg/kg/day based on ideal body weight as described in the most recent AAO plaquenil screening guidelines. Patient is on safe dose (should not exceed 408mg) - Risk factors for toxicity include daily dose and duration of use, renal disease, tamoxifen use, history of retinal or macular disease 2. Glaucoma suspect of both eyes IOP: today OCT: Superior thinning left eye 24-2: 11/02/23: normal right eye, normal left eye 30-2 04/30/23: superior defect both eye, lids? Small inf defect left eye, correlates with OCT Cup/disc assymmetry: OS/OD Previous records from [id number] show stable OCT and visual field compared to now Went over option of starting drop vs observing mild glaucoma-like changes left eye -patient opts to wait Follow-up in 6 months for 24-2 and IOP 3. Pseudophakia of both eyes Monovision- doing well Follow-up in 6 months for 24-2 and IOP (30 min) Peyton Crandall, OD May 02, 2024 1:36 [facility]08-26-2024 NoteDate of Procedure 05/02/2024. Supervisor Television Chassis Repair Information Day Care Worker: Start time: 12:36 PM. Stop time: 12:36 PM. Quality Right Eye Good. Left Eye Good. NFL Interpretation Right Eye Normal. Left Eye Superior loss. Ganglion Cell Layer Thickness Right Eye Normal. Left Eye (Sporadic loss). Interval Change Right Eye Stable. Left Eye Stable.[id number] History of Present illness Narrative* Peyton Crandall, OD - 05/02/2024 1:36 PM EDT 1. Encounter for long-term (current) use of high-risk medication - Indication: RA - no signs of toxicity today on exam - OCT (05/02/24): normal - Visual Field 10-2 (05/02/24): normal - has been using plaquenil 400 mg daily since 03/2023 - The recommended dosage is the lower of 5 mg/kg/day based on real body weight or 6.5 mg/kg/day based on ideal body weight as described in the most recent AAO plaquenil screening guidelines. Patient is on safe dose (should not exceed 408mg) - Risk factors for toxicity include daily dose and duration of use, renal disease, tamoxifen use, history of retinal or macular disease 2. Glaucoma suspect of both eyes IOP: today OCT: Superior thinning left eye 24-2: 11/02/23: normal right eye, normal left eye 30-2 04/30/23: superior defect both eye, lids? Small inf defect left eye, correlates with OCT Cup/disc assymmetry: OS/OD Previous records from [id number] show stable OCT and visual field compared to now Went over option of starting drop vs observing mild glaucoma-like changes left eye -patient opts to wait Follow-up in 6 months for 24-2 and IOP 3. Pseudophakia of both eyes Monovision- doing well Follow-up in 6 months for 24-2 and IOP (30 min) Peyton Crandall, OD May 02, 2024 1:36 PM documented in this encounter[facility] NoteDate of Procedure 05/02/2024. Supervisor [employer] Ch[employer] Rep[employer] Information Day Care Worker: SANDER. Start time: 12:36 PM. Stop time: 12:36 PM. Interpretation Right Eye Normal without fluid. Left Eye Normal without fluid. Interval Change Right Eye Stable. Left Eye Stable.[id number] NoteDate of Procedure 05/02/2024. Supervisor [employer] Ch[employer] Rep[employer] Information Day Care Worker: SANDER. Start time: 12:40 PM. Stop time: 12:49 PM. Administered an artifical tear prior to visual field testing. . Reliability Right Eye Good. Left Eye Good. Interpretation Right Eye Normal. Left Eye Normal. Interval Change Right Eye Stable. Left Eye Stable.[id number] Procedure [facility]08-24-2023 History of Present illness Narrative* Peyton Crandall, OD - 04/30/2023 12:59 PM EDT 1. Encounter for long-term (current) use of high-risk medication - Indication: RA - no signs of toxicity today on exam - OCT (04/30/23 ): normal - Visual Field 10-2 (04/30/23): normal - has been using plaquenil 200 mg daily since 03/2023 - The recommended dosage is the lower of 5 mg/kg/day based on real body weight or 6.5 mg/kg/day based on ideal body weight as described in the most recent AAO plaquenil screening guidelines - Risk factors for toxicity include daily dose and duration of use, renal disease, tamoxifen use, history of retinal or macular disease 2. Glaucoma suspect of both eyes IOP: 16/16 today OCT: Superior thinning left eye 24-2 11/14/22: normal right eye, normal left eye (03/17/23) 30-2 04/30/23: superior defect both eye, lids? Small inf defect left eye, correlates with OCT Cup/disc assymmetry: OS/OD Previous records from [id number] show stable OCT and visual field compared to now Went over option of starting drop vs observing mild glaucoma-like changes left eye -patient opts to wait Follow-up in 6 months for 24-2 and IOP -consider drop therapy depending on results 3. Pseudophakia of both eyes 4. Presbyopia Continue with glasses Follow-up in 6 months for 24-2 (left eye first) and IOP Peyton Crandall, OD April 30, 2023 12:59 PM documented in this encounter[facility]07-11-2023 History of Present illness Narrative* Peyton Crandall, OD - 03/17/2023 10:23 AM EDT 1. Glaucoma suspect of both eyes IOP: 19/20 OCT: Superior thinning left eye 24-2 11/14/22: normal right eye, normal left eye (03/17/23) Cup/disc assymmetry: OS/OD Previous records from show stable OCT and visual field compared to now 2. Pseudophakia of both eyes 3. Presbyopia Continue with current glasses Follow-up in 6 months for complete with OCT nerve Advised patient to follow-up soon for plaquenil testing if started by rheum for RA Peyton Crandall, OD March 17, 2023 10:23 AM documented in this encounter[facility] Miscellaneous Notes* Telephone Encounter - Julio C Washington MD - 01/20/2023 4:06 PM EDT Yes Julio C Washington MD * Telephone Encounter - Analilia Marsh Ma - 01/20/2023 3:51 PM EDT Ok to update PCP? Analilia Marsh Ma documented in this encounterSelect [facility] Rodriguez [facility] January 12, 2023 8:16pm Note Date/Time January 12, 2023 8:14pm [facility] Medical Records Department [address] [place] [address] Discharge Summary 01/12/232008 MR#: [id number] Acct: [id number] Name: EDRIC MERIDA Rep #:[id number] : 1945 77 From: Wei Rodriguez MD PCP: Dr. Julio C Washington MD Status:AD M IN Location: [place] [address] Providers Date of Admission: 01/06/23 Primary Care Physician: Dr. Julio C Washington MD Reason For Visit: DEBILITY, TIBIAL PLATEAU FRACTURE Diagnosis Discharge Diagnosis (1) Closed nondisplaced fracture of right tibial plateau: Status: Acute Code(s): S82.144A - Nondisplaced bicondylar fracture of right tibia, initial encounter for closed fracture Plan 77 year old female with below past medical history hospitalized for right lateral tibial plateau fracture of tibia, admitted to TCU with debility, here for rehabilitation, strengthening, prior to discharge home alone. * Debility - PT/OT. * Pain - Tylenol 1000mg q8h, Ibuprofen 200mg bidcm, Oxycodone 2.5mg - 5mg q4h prn. * Bowel - senna/colace 2 tablets bid, Dulcolax 10mg pr x 1 prn, MOM 30ml po x 1 prn. * Adult immunization - Administer pneumonia vaccine, covid19 vaccine, flu vaccine as appropriate. * DVT prophylaxis - Eliquis 2.5mg bid x 30 days. * Hypertension - Metoprolol succinate 12.5mg daily. * Restless leg syndrome - Mirapex 1mg tid. Medications at Discharge Home Medications metoprolol succinate 25 mg capsule sprinkle, ext. release 24 hr 12.5 mg PO DAILYbp 01/02/23 ropinirole 2 mg tablet 4 mg PO TID restless legs 01/02/23 apixaban 5 mg tablet (Eliquis) 2.5 mg PO BID 20 days #20 tabs 01/12/23 Hospital Course Operations None Procedures None Summary of Care Provided Minutes Spent on Discharge: 35 Hospital Course: 77 year old female with below past medical history hospitalized for right lateral tibial plateau fracture of tibia, admitted to TCU with debility, here for rehabilitation, strengthening, prior to discharge home alone. Dr. Caputo saw resident 01/08/2023, Dr. Caputo planning on seeing resident week of 01/11/2023. She is wearing right knee immobilizer. Non-weight bearing right lower extremity thru 02/13/2023. Discharge home alone 01/15/2023, Home Health Care PT/OT, Front Wheeled Walker. Physical Exam Const alert General Appearance: cooperative HEENT normocephalic Eyes PERRL and EOMs intact bilaterally Neck supple, no JVD and no carotid bruits Resp normal respiratory effort, normal air movement and clear to auscultation bilaterally Cardio regular rate and regular rhythm GI normal to inspection, nondistended, normoactive bowel sounds, non-tender and non-distended Extremity normal capillary refill General Extremity: Negative for edema Skin no rashes or lesions noted General Skin Exam: no breakdown Psych affect normal Appearance: appropriate Weight / BMI Weight Weight: 82.185 kg Body Mass Index (BMI) 30.1 ABG / Lab / Microbiology Data Result Diagrams: 01/07/23 05:33 01/07/23 05:33 Microbiology: Microbiology 01/08/23 05:30 Nasal Secretion SARS-CoV-2 Antigen (Rapid) - Final D/C Instructions Discharge Diet: No restrictions Discharge Activity: Return to Normal Activity, May Shower and Use Walker Weight Bearing Status: No weight bearing (Right lower extremity until cleared byDr. Caputo.) Call your doctor if you observe: Fever of 101 or Higher, Inability to urinate, Inability to have a bowel movement, Shortness of breath, Dizziness, Fainting spells, Swelling in the ankles, Chest pain and Uncontrolled pain Additional Instructions: Discharge home alone 01/15/2023, Home Health Care PT/OT, Front Wheeled Walker. Please Follow Up With: Dr. Caputo When: as scheduled. Meaningful Use Info Meaningful Use Diagnoses (Choose all that apply): None applicable Discharge Plan Admission Admit Date/Time: 01/06/23 18:30 Primary Reason for Your Visit: Debility. Attending Provider: Wei Rodriguez Chi Primary Care Provider: Julio C Washington Instructions Additional Instructions / Restrictions: arge home alone 01/15/2023, Home Health Care PT/OT, Front Wheeled Walker. Discharge Orders/Prescriptions Prescriptions: New Eliquis 5 mg Tablet 2.5 mg PO BID 20 Days Qty: 20 0RF Continued ropinirole 2 mg Tablet 4 mg PO TID metoprolol succinate 25 mg Capsule,Sprinkle,Er 24hr 12.5 mg PO DAILY Discontinued Advil Dual Action 125-250 mg Tablet 2 tab PO BID oxycodone 5 mg Tablet 2.5 - 5 mg PO Q4H PRN PRN (Reason: Pain Score 4-10) 3 Days Qty: 7 0RF Eliquis 2.5 mg tablet 2.5 mg PO BID Referrals / Follow Up: Wei Rodriguez Chi, MD [Med Staff - Active Staff] - 01/15/23 Disposition Disposition (needs filled in before D/C Order can be placed): Home Health Service 01/12/232015 <Electronically signed by Wei Rodriguez MD> Cosigner Signature (if applicable): CC: Dr. Julio C Washington MD; Dr. Wei Rodriguez MD~ Signed [facility] Work Phone: [phone]) 839-481405-05-[address] Caputo [facility] January 09, 2023 12:36pm Note Date/Time January 08, 2023 3:57pm [facility] Medical Records Department [address] [place] [address] Consultation - Orthopedics 01/08/23 1552 MR#: [id number] Acct: [id number] Name: RAJEEVDERIC Rep #:[id number] : 1945 77 From: Kb maki DO PCP: Dr. Julio C Washington MD Status:AD M IN Location: [facility] [id number] HPI Consult Data Date of Consult: 01/08/23 HPI Narrative HPI Narrative: DERIC MERIDA, is a 77 F who presented to [facility] emergency department 01/02/2023 After a mechanical fall from standing height in her garage when her foot caught a floor mat causing her to land on her right knee. She noted pain at that time, injury was sustained on 01/01/2023. She noted significant pain with weightbearing. She states she went to the emergency department for pain medicine. X-rays in the ED revealed a nondisplaced lateral tibial plateau fracture. Patient lives at home alone. I was contacted by the emergency department at that time recommended nonweightbearing with a knee immobilizer to the left knee. Patient was admitted under service hospitalist. She subsequently underwent physical occupational therapy evaluations and was discharged to [facility]. I saw the patient in consultation today. At time of examination, patient reports some soreness in her right knee but otherwise denies any complaints. Denies fevers, chills, nausea or vomiting,chest pain or shortness of breath. She states she has been compliant with the nonweightbearing restrictions. She is frustrated due to loss of independence andwished to go home soon as possible. Denies any antecedent right knee pain. [facility] Medical History (Updated 01/06/23 @ 20:[address] Wei Rodriguez MD) Bicondylar fracture of right tibia Hypertension Restless leg syndrome Home Medications ibuprofen 125 mg-acetaminophen 250 mg tablet (Advil Dual Action) 2 tab PO BID RA01/02/23 [History Last Taken 01/02/23 08:00] metoprolol succinate 25 mg capsule sprinkle, ext. release 24 hr 12.5 mg PO DAILYbp 01/02/23 [History Last Taken 01/02/23 08:00] ropinirole 2 mg tablet 4 mg PO TID restless legs 01/02/23 [History Last Taken 01/02/23 08:00] apixaban 2.5 mg tablet (Eliquis) 2.5 mg PO BID Blood Thinner 01/06/23 [History Last Taken Unknown] oxycodone 5 mg tablet 2.5 - 5 mg PO Q4H PRN PRN Pain Score 4-10 3 days #7 tabs 01/06/23 [Rx Last Taken Unknown] Allergy/AdvReac Type Severity Reaction Status Date / Time No Known Allergies Allergy Verified 01/02/23 09:41 Family History Other Heart disease Surgical History H/O: hysterectomy Social History (Updated 01/06/23 @ 20:[address] Wei Rodriguez MD) household members: none Smoking Status: Former smoker alcohol intake: never substance use type: does not use ROS ROS Narrative 12 point review system systems obtained, negative unless otherwise noted in HPI Vital Signs Vital Signs Vital Signs: 01/07/23 20:00 01/07/23 22:00 01/08/23 05:16 Temperature Temperature Source Pulse Rate 84 66 Pulse Rhythm Regular Pulse Strength Normal (2+) Normal (2+) Respiratory Rate 16 Respiratory Effort Normal Non-Labored Respiratory Depth Normal Respiratory Pattern Normal Blood Pressure 110/60 Blood Pressure Mean Blood Pressure Source Blood Pressure Position Blood Pressure Location Pulse Ox 94 Oxygen Delivery Method Room Air 01/08/23 10:00 01/08/23 10:00 01/08/23 14:56 Temperature 97.2 F L Temperature Source Temporal Pulse Rate 75 Pulse Rhythm Regular Pulse Strength Normal (2+) Normal (2+) Respiratory Rate 16 Respiratory Effort Normal Non-Labored Respiratory Depth Normal Respiratory Pattern Normal Blood Pressure 128/64 H Blood Pressure Mean 85 Blood Pressure Source Monitor Blood Pressure Position Semi-Fowlers Blood Pressure Location Right Arm Pulse Ox 97 Oxygen Delivery Method Room Air Room Air Weight Weight: 181 lb 3 oz Body Mass Index (BMI) 30.1 Physical Exam Narrative General -A&Ox3, NAD, appears stated age. Vital signs stable, afebrile. Respiratory -normal work of breathing, no intercostal retractions. CV -pulses regular, brisk capillary refill ?4 limbs. Abdomen-soft, nontender, nondistended. No guarding, rigidity, rebound tenderness. Musculoskeletal/neurologic -full range of motion nontender throughout bilateral upper extremities, left lower extremity with full sensation and strength in all dermatomes and myotomes. No midline cervical tenderness. Right lower extremity-no obvious deformity. Tenderness to palpation lateral tibial plateau without gross deformity. Minimal soft tissue swelling. 1+ rightknee effusion. Brisk capillary refill. Sensation intact light touch L3-S1 dermatomes. DF, PF, EHL intact. DP, PT 2+. Pelvis is stable, nontender. Skin isintact without lacerations, abrasions. No ecchymosis noted. Lab / Micro Data Result Diagrams: 01/07/23 05:33 01/07/23 05:33 Micro: Microbiology 01/08/23 05:30 Nasal Secretion SARS-CoV-2 Antigen (Rapid) - Final Assessment & Plan Assessment/Plan (1) Closed nondisplaced fracture of right tibial plateau: PLAN: Patient sustained a nondisplaced Lateral tibial plateau fracture of the right knee. Given the alignment, nonoperative management is recommended. Knee immobilizer at this time. Plan to transition to T ROM hinged knee brace next week. We will plan to add approximately 20 degrees of flexion per week to reacha goal of 90 degrees x 6 weeks post injury. I will order x-rays today. Plan tofollow-up in 2 weeks with x-rays. We will likely plan on nonweightbearing until6 weeks from injury. Continue physical occupational therapies. Patient on Eliquis for DVT prophylaxis. Please call sooner if any questions or concerns arise. 01/08/23 1600 <Electronically signed by Kb Caputo DO> Cosigner Signature (if applicable): CC: Dr. Julio C Washington MD~ Signed ADDENDUM by Dr. Kb Caputo DO on 01/08/23 at 1601 Addendum Patient may remove knee immobilizer to shower. She is okay to slightly bend herknee in a shower chair. 01/08/23 1601<Electronically signed by Kb Caputo DO> Cosigner Signature (if applicable): cc: Dr. Julio C Washington MD ~* Signed ADDENDUM by Dr. Kb Caputo DO on 01/09/23 at 1236 Addendum X-rays reviewed from 01/08/2023. Interval healing noted. Radiologist does not note a lateral tibial plateau fracture. I would recommend a CT scan to confirm fracture, which would change patient's weightbearing status. 01/09/23 1236<Electronically signed by Kb Spittle DO> Cosigner Signature (if applicable): cc: Dr. Julio C Washington MD ~* Signed [facility] Work Phone: 1(617) 584-883205-03-[address] Rodriguez [facility] January 07, 2023 8:52am Note Date/Time January 07, 2023 8:18am [facility] Medical Records Department [address] [place] [address] Progress Note - Pharmacy 01/07/23811 MR#: [id number] Acct: [id number] Name: DERIC MERIDA Rep #:[id number] : 1945 77 From: Kimberly Adair PCP: Dr. Julio C Washington MD Status:AD M IN Location: [facility] [place] [address] TCU RX Drug Regimen Review Subjective: TCU Admission. 77 YOF presented to the ER with a fall. Hospitalized for right lateral tibial plateau fracture of tibia. Admitted to TCU with debility for strengthening and rehabilitation. Objective: Allergies No Known Allergies Allergy (Verified 01/02/23 09:41) Current Medications Generic Name Dose Route Start Last Admin Trade Name Freq PRN Reason Stop Dose Admin Acetaminophen 1,000 mg 01/07/23 07:46 Acetaminophen 500 Mg Tablet PO Q6H PRN PRN Pain Score 1-10 Apixaban 2.5 mg 01/07/23 06:00 01/07/23 05:36 Apixaban 2.5 Mg Tablet ([facility]) PO 02/04/23 23:59 2.5 mg BID AIMEE Administration Bisacodyl 10 mg 01/06/23 20:59 Bisacodyl 10 Mg Suppository RC X1 PRN Constipation Calamine/Phenol 1 applic 01/07/23 06:00 01/07/23 06:34 Menthol/Lanolin/Calamine/Znox 113 Gm Tube TOPICAL 1 applic BID AIMEE Administration Protocol Sodium Chloride 250 mls @ 15 mls/hr 01/06/23 20:42 IV .[id number] PRN Saline Flush Sodium Chloride 250 mls @ 15 mls/hr 01/06/23 20:42 IV .[id number] PRN Additional IVPB Infusion Ibuprofen 200 mg 01/06/23 21:41 Ibuprofen 200 Mg Tablet PO BID PRN PRN Pain 1-10 Magnesium Hydroxide 30 ml 01/06/23 20:59 Magnesium Hydroxide 30 Ml Udc PO X1 PRN Constipation Metoprolol Succinate 12.5 mg 01/07/23 06:00 01/07/23 05:36 Metoprolol(Xl)Succ 25 Mg Tablet PO 12.5 mg DAILY AIMEE Administration Oxycodone HCl 2.5 - 5 mg 01/06/23 18:51 Oxycodone 5 Mg Tablet PO Q4H PRN PRN Pain Score 4-10 Pramipexole Dihydrochloride 1 mg 01/06/23 22:00 01/07/23 05:37 Pramipexole Di-Hcl 1 Mg Tablet PO 1 mg TID AIMEE Administration Senna/Docusate Sodium 2 tablet 01/06/23 21:00 01/07/23 05:38 Senna/Docusate Sodium 1 Tablet PO Not Given BID AIMEE Sodium Chloride 10 - 40 ml 01/06/23 20:42 0.9% Saline Lock 10 Ml Syringe IV UD PRN SALINE FLUSH Tuberculin PPD 0.1 ml 01/07/23 10:00 Tuberculin,Purif.Prot.Deriv. 50 Tu/Ml Vial ID 01/07/23 10:01 X1 ONE Tuberculin PPD 0.1 ml 01/14/23 10:00 Tuberculin,Purif.Prot.Deriv. 50 Tu/Ml Vial ID 01/14/23 10:01 X1 ONE Problem List (Last Updated 01/06/23 @ 20:[address] Wei Rodriguez MD) Debility (Acute) Bicondylar fracture of right tibia (Acute) Restless leg syndrome (Acute) Hypertension (Chronic) Vital Signs Temp Pulse Resp BP Pulse Ox O2 Del Method 98.1 F 71 18 119/68 93 Room Air 01/06/23 18:55 01/07/23 05:36 01/06/23 19:00 01/07/23 05:36 01/06/23 19:00 01/06/23 19:00 Oxygen Delivery Method Room Air Weight: 82.185 kg Body Mass Index (BMI) 30.1 Sodium 140 mmol/L (136-145) 01/07/23 05:33 Potassium 4.3 mmol/L (3.5-5.1) 01/07/23 05:33 Chloride 109 mmol/L (98-107) H 01/07/23 05:33 Carbon Dioxide 24.0 mmol/L (21.0-32.0) 01/07/23 05:33 Anion Gap 7 (5-15) 01/07/23 05:33 BUN 30 mg/dL (7-18) H 01/07/23 05:33 Creatinine 1.00 mg/dL (0.55-1.02) 01/07/23 05:33 Est GFR (MDRD) Af Amer 69 mL/min (>60) 01/07/23 05:33 Est GFR (MDRD) Non-Af 57 mL/min (>60) L 01/07/23 05:33 BUN/Creatinine Ratio 30.0 RATIO (10-20) H 01/07/23 05:33 Glucose 97 mg/dL (74-106) 01/07/23 05:33 Assessment/Plan: 1. Pain: acetaminophen 1000mg PO Q6H PRN pain 1-10, ibuprofen 200mg BID PRN pain1-10 and oxycodone 2.5-5mg PO Q4H PRN pain 4-10. Resident has not used any PRN doses. Please continue to monitor for increased pain and PRN usage. 2. Bowel: senna/docusate 2T PO BID, bisacodyl 10mg RC x1 PRN constipation and MOM 30mL PO x1 PRN constipation. Resident has not used any PRN doses. Please continue to monitor for constipation and PRN usage. No documented bowel movements so far. 3. DVT prophylaxis: apixaban 2.5mg PO BID thru 02/04/23. Please continue to monitor for S/S of bleeding/DVT (ibuprofen also ordered, if starts taking doses the risk of bleeding increases) and hemoglobin (last 11.6g/dL). 4. Hypertension: metoprolol succinate 12.5mg PO daily. Please continue to monitor HR (last 71) and BP (last 119/68). 5. Restless leg syndrome: pramipexole 1mg PO TID. Please continue to monitor forS/S of restless legs, drowsiness and dizziness. Assessment/Plan for indications treated with psychotropic medications: None Medical chart and medication regimen reviewed. The following medication irregularities or issues were identified: None Date of Note:: 05/03/23 05/03/23 0818 <Electronically signed by Kimberly Adair > Kimberly Adair Cosigner Signature (if applicable): 01/07/23 0852 <Electronically signed by Wei Rodriguez MD> CC: ~ Signed [facility] Work Phone: 1(495) 610-280005-03-2023 History and physical note Author Dr. Rodriguez [facility] January 07, 2023 7:44am Note Date/Time January 06, 2023 8:52pm [facility] Medical Records Department [address] [place] [address] History & Physical Exam 01/06/232045 MR#: [id number] Acct: [id number] Name: DERIC MERIDA Rep #:[id number] : 1945 77 From: Wei Rodriguez MD PCP: Dr. Julio C Washington MD Status:AD M IN Location: [place] [address] HPI - General General Date of Admission: 01/06/23 Date of Service: 01/07/23 Chief Complaint: Here for rehabilitation. HPI Narrative 01/02/2023 DERIC MERIDA, is a 77 Female who presents to [facility] Emergency Department with fall. Mechanical fall in garage yesterday. Landed on right knee, now swollen, painful. Hit head, no LOC, chronic numbness of legs. Morphine given for pain. X-ray shows right nondisplaced lateral tibial plateau fracture. Right knee immobilizer applied, NWB right lower extremity. Unable to care for self at home. 01/02/2023 Admit to Hospital. Right knee immobilizer, NWB right lower extremity, PT/OT right bicondylar tibia fracture. 01/03/2023 Await PT/OT evaluation. Pain control. 01/04/2023 Right knee pain controlled. Blood pressure controlled. 01/05/2023 PT/OT for SNF. Eliquis 2.5mg twice daily x 30 days for DVT prophylaxis. 01/06/2023 Admit to TCU with debility, here for rehabilitation, strengthening, prior to discharge home alone. [facility] Medical History (Updated 01/06/23 @ 20:[address] Wei Rodriguez MD) Bicondylar fracture of right tibia Hypertension Restless leg syndrome Home Medications ibuprofen 125 mg-acetaminophen 250 mg tablet (Advil Dual Action) 2 tab PO BID RA01/02/23 [History Last Taken 01/02/23 08:00] metoprolol succinate 25 mg capsule sprinkle, ext. release 24 hr 12.5 mg PO DAILYbp 01/02/23 [History Last Taken 01/02/23 08:00] ropinirole 2 mg tablet 4 mg PO TID restless legs 01/02/23 [History Last Taken 01/02/23 08:00] apixaban 2.5 mg tablet (Eliquis) 2.5 mg PO BID Blood Thinner 01/06/23 [History Last Taken Unknown] oxycodone 5 mg tablet 2.5 - 5 mg PO Q4H PRN PRN Pain Score 4-10 3 days #7 tabs 01/06/23 [Rx Last Taken Unknown] Allergy/AdvReac Type Severity Reaction Status Date / Time No Known Allergies Allergy Verified 01/02/23 09:41 Family History Other Heart disease Surgical History H/O: hysterectomy Social History (Updated 01/06/23 @ 20:[address] Wei Rodriguez MD) household members: none Smoking Status: Former smoker alcohol intake: never substance use type: does not use ROS Constitutional Constitutional: Denies chills, fever(s) or weight gain ENT HEENT: Denies headache(s), nasal congestion or nasal discharge Cardiovascular Cardiovascular: Denies chest pain or palpitations Respiratory/Chest Respiratory/Chest: Denies cough, excessive phlegm production or shortness of breath with exertion Gastrointestinal Gastrointestinal: Denies abdominal pain, nausea or vomiting Genitourinary Genitourinary: Denies dysuria Musculoskeletal Musculoskeletal: Denies joint pain or joint swelling Integumentary Integumentary: Denies rash or wounds Neurologic Neurologic: Denies focal weakness, numbness or tingling Psychiatric Psychiatric: Denies anxiety, auditory hallucinations, depression, homicidal ideation or suicidal ideation Vital Signs Vital Signs Vital Signs: 01/06/23 18:55 Temperature 98.1 F Temperature Source Temporal Pulse Rate 87 Respiratory Rate 18 Blood Pressure 121/58 H Blood Pressure Mean 79 Blood Pressure Source Monitor Pulse Ox 93 Oxygen Delivery Method Room Air Physical Exam Const alert General Appearance: cooperative HEENT normocephalic Eyes PERRL and EOMs intact bilaterally Neck supple, no JVD and no carotid bruits Resp normal respiratory effort, normal air movement and clear to auscultation bilaterally Cardio regular rate and regular rhythm GI normal to inspection, nondistended, normoactive bowel sounds, non-tender and non-distended Extremity normal capillary refill Extremity Narrative: Right knee immobilizer. General Extremity: Negative for edema Skin no rashes or lesions noted General Skin Exam: no breakdown Psych affect normal Appearance: appropriate Results Lab / Micro Data Result Diagrams: 01/07/23 05:33 01/07/23 05:33 Assessment & Plan Assessment/Plan (1) Debility: (2) Bicondylar fracture of right tibia: (3) Restless leg syndrome: (4) Hypertension: PLAN: Plan 77 year old female with below past medical history hospitalized for right lateral tibial plateau fracture of tibia, admitted to TCU with debility, here for rehabilitation, strengthening, prior to discharge home alone. * Debility - PT/OT. * Pain - Tylenol 1000mg q8h, Ibuprofen 200mg bidcm, Oxycodone 2.5mg - 5mg q4h prn. * Bowel - senna/colace 2 tablets bid, Dulcolax 10mg pr x 1 prn, MOM 30ml po x 1 prn. * Adult immunization - Administer pneumonia vaccine, covid19 vaccine, flu vaccine as appropriate. * DVT prophylaxis - Eliquis 2.5mg bid x 30 days. * Hypertension - Metoprolol succinate 12.5mg daily. * Restless leg syndrome - Mirapex 1mg tid. 01/07/23 0744 <Electronically signed by Wei Rodriguez MD> Cosigner Signature (if applicable): CC: Dr. Julio C Washington MD; Dr. Wei Rodriguez MD~ Signed [facility] Work Phone: 1(464) 769-650505-02-[address] Najera [facility] January 06, 2023 11:12am Note Date/Time January 06, 2023 9:11am [facility] Medical Records Department [address] [place] [id number] Progress Note - Hospitalist 01/06/23 0911 MR#: [id number] Acct: [id number] Name: DERIC MERIDA Rep #:[id number] : 1945 77 From: Reece Suero PCP: Dr. Julio C Washington MD Status:ORESTES M MARIANELA Location: [facility] [id number] Reason for Visit Reason for Visit: Diagnoses Nondisplaced bicondylar fracture of right tibia, initial encounter for closed fracture (01/02/23) Subjective Subjective No acute change in clinical status. Objective Data Objective Data Vital Signs: Vital Signs Temp Pulse Resp BP Pulse Ox O2 Del Method 97.9 F 72 16 122/85 H 95 Room Air 01/06/23 05:54 01/06/23 08:35 01/06/23 05:54 01/06/23 05:54 01/06/23 05:54 01/06/23 08:30 Oxygen Delivery Method Room Air Weight: 181 lb 3.2 oz Body Mass Index (BMI) 30.1 Intake & Output: Intake and Output for Last 24 Hours 01/04/23 01/05/23 01/06/23 23:59 23:59 23:59 Intake Total 1800 / 1800 640 / 640 800 / 800 Output Total 250 / 250 1275 / 1275 250 / 250 Balance 1550 / 1550 -635 / -635 550 / 550 Lab / Micro Data Result Diagrams: 01/05/23 05:20 01/05/23 05:20 Physical Exam Narrative Physical exam General: Alert, Oriented x3, Cooperative HEENT: Atraumatic, PERRLA, EOMI, Normocephalic Oral: Oral mucosa moist. No Gingival or Mucosal Lesions/ Ulcerations Neck: Supple, No JVD, Negative Carotid Bruits Lungs: Air entry diminished in bilateral lung bases. No crepitation/rhonchi Cardiovascular: Regular rate, Regular Rhythm, Normal S1, Normal S2, No murmurs Abdomen: Bowel Sounds Present, Soft, Non Tender, Non-Distended :Spontaneously voiding urine. Denies dysuria or new LUTS. No renal angle tenderness. No suprapubic tenderness. Extremities: No edema, Capillary Refill Less than 3 Seconds Skin: No rashes, No breakdown Musculoskeletal: Right knee immobilizer. No acute tenderness to Palpation of other joints or Extremities Neurological: Cranial nerves II-XII grossly intact, DTR 2+/4 and Symmetrical, Neuro grossly intact Psych/Mental Status: Normal Affect, Appropriate. Assessment & Plan Assessment/Plan (1) Closed nondisplaced fracture of right tibial plateau: PLAN: Plan 1.? Nondisplaced tibial plateau fracture on the right: Patient is admitted on MedSur floor. Nonweightbearing for several weeks. Patient was evaluated by PT and OT and plan for SNF. Discussed with the case resource manager. Follow-up orthopedic surgery as an outpatient in 1 week. 01/06: Pending pre-CERT. Patient does not have acute pain. Patient is medically stable for discharge. Transfer papers signed. 2.? Hypertension ? Blood pressures are in normal range ? Continue with metoprolol DVT, high risk because of knee right tibial plateau fracture: Patient was started on Eliquis 2.5 mg twice daily when I took over the patient's discharge on 01/05/2023. Prescription given for Eliquis to continue for 1 month. Charges/Coding Visit Charges Inpatient E&M: 10213 Subs Hosp L2 01/06/23 1112 <Electronically signed by Reece Najera MD> Cosigner Signature (if applicable): CC: ~ Signed [facility] Work Phone: 1(473) 170-575305-02-[address] Najera [facility] January 06, 2023 5:32pm Note Date/Time January 06, 2023 9:11am [facility] Medical Records Department [address] [place] [id number] Transfer to [facility] MR#: [id number] Acct: [id number] Name: DERIC MERIDA Rep #:[id number] : 1945 77 From: Reece Suero PCP: Dr. Julio C Washington MD Status:[facility] Certification of patient admission REQUIRED AT TIME OF ADMISSION. I CERTIFY THAT POST-HOSPITAL ECF SERVICES ARE REQUIRED TO BE GIVEN ON AN IN-PATIENT BASIS BECAUSE OF THE ABOVE NAMED PATIENT'S NEED FOR FPC CARE ON A CONTINUING BASIS FOR THE CONDITION(S) FOR WHICH HE/SHE WAS RECEIVING IN-PATIENT HOSPITAL SERVICES PRIOR TO HIS/HER TRANSFER TO THE [facility]. 01/06/23 1732<Electronically signed by Reece Najera MD> Diet Diet Order/Speech Therapy: 01/02/23 14:54 Diet: Regular - General Food consistency:: Regular Liquid Consistency:: Regular/Thin Routine Orders/Code Status Code Status: DNRCC-A (No intubation) Therapies Weight Bearing: Non weight bearing Extremity Affected:: Right Lower Physical Therapy: Eval and Treat Occupational Therapy: Eval and Treat Speech Therapy: Eval and Treat Problem/Diagnosis (1) Closed nondisplaced fracture of right tibial plateau: Status: Acute Code(s): S82.144A - Nondisplaced bicondylar fracture of right tibia, initial encounter for closed fracture Plan 1.? Nondisplaced tibial plateau fracture on the right: [facility] Nonweightbearing for several weeks. Patient was evaluated by PT and OT and plan for SNF. Discussed with the case resource manager. Follow-up orthopedic surgery as an outpatient in 1 week. 2.? Hypertension ? Blood pressures are in normal range ? Continue with metoprolol DVT: Ambulation Allergies/Procedures Done in Hospital Allergies No Known Allergies Allergy (Verified 01/02/23 09:41) Type of Care/Length of Stay Estimated LOS: Convalescent Care Less Than 30 days Type of Care Needed: Skilled Rehab Potential: Good Prognosis: Good Additional Orders/Day of Discharge Day of Discharge: 01/06/23 Discharge Plan Admission Admit Date/Time: 01/02/23 13:32 Primary Reason for Your Visit: Right tibial plateau fracture Attending Provider: Reece Najera Primary Care Provider: Julio C Washington Consulting Providers: Kb Whalen Discharge Orders/Prescriptions Prescriptions: New oxycodone 5 mg Tablet 2.5 - 5 mg PO Q4H PRN PRN (Reason: Pain Score 4-10) 3 Days Qty: 7 0RF Eliquis 2.5 mg tablet 2.5 mg PO BID 30 Days Qty: 60 0RF Continued ropinirole 2 mg Tablet 4 mg PO TID Advil Dual Action 125-250 mg Tablet 2 tab PO BID metoprolol succinate 25 mg Capsule,Sprinkle,Er 24hr 12.5 mg PO DAILY Referrals / Follow Up: Tomas Emerson DO [Med Staff - Active Staff] - Within 2 Weeks (FOR RIGHT Knee tibial plateau fracture) Julio C Washington MD [Primary Care Provider] - Within 2 Weeks Disposition Disposition (needs filled in before D/C Order can be placed): [facility] Facility 01/06/23 1732 <Electronically signed by Reece Najera MD> Cosigner Signature (if applicable): CC: Dr. Julio C Washington MD; Dr. Kb Whalen MD ~ [facility] Work Phone: 1(861) 756-316305-01-[address] Najera [facility] January 05, 2023 2:20pm Note Date/Time January 05, 2023 2:20pm [facility] Medical Records Department [address] [place] [address] Progress Note - Hospitalist 01/05/23 1411 MR#: [id number] Acct: [id number] Name: DERIC MERIDA Rep #:[id number] : 1945 77 From: Reece Suero PCP: Dr. Julio C Washington MD Status:[facility] Location: [place] [address] Reason for Visit Reason for Visit: Diagnoses Nondisplaced bicondylar fracture of right tibia, initial encounter for closed fracture (01/02/23) Objective Data Objective Data No acute complaint. Denies constipation. Vital Signs: Vital Signs Temp Pulse Resp BP Pulse Ox O2 Del Method 98.8 F 88 18 123/71 H 95 Room Air 01/05/23 14:08 01/05/23 14:08 01/05/23 14:08 01/05/23 14:08 01/05/23 14:08 01/05/23 14:08 Oxygen Delivery Method Room Air Weight: 181 lb 3.2 oz Body Mass Index (BMI) 30.1 Intake & Output: Intake and Output for Last 24 Hours 01/03/23 01/04/23 01/05/23 23:59 23:59 23:59 Intake Total 900 / 900 1800 / 1800 520 / 520 Output Total 850 / 850 250 / 250 1275 / 1275 Balance 50 / 50 1550 / 1550 -755 / -755 Lab / Micro Data Result Diagrams: 01/05/23 05:20 01/05/23 05:20 Labs: Laboratory Results - last 24 hr 01/05/23 05:20: WBC 6.2, RBC 3.87 L, Hgb 11.5 L, Hct 35.8 L, MCV 92.5, MCH 29.7,MCHC 32.1, RDW Std Deviation 44.4 H, RDW Coeff of Charles 13.2, Plt Count 157, MPV 11.0, Immature Gran % (Auto) 0.200, Neut % (Auto) 67.2, Lymph % (Auto) 18.3 L, [place] % (Auto) 7.9, Eos % (Auto) 5.9 H, Baso % (Auto) 0.5, Absolute Neuts (auto) 4.2, Absolute Lymphs (auto) 1.14, Nucleated RBC % 0 01/05/23 05:20: Sodium 138, Potassium 4.1, Chloride 108 H, Carbon Dioxide 24.0, Anion Gap 6, BUN 17, Creatinine 0.81, Estim Creat Clear Calc 51.51, Est GFR (MDRD) Af Amer 88, Est GFR (MDRD) Non-Af 73, BUN/Creatinine Ratio 21.0 H, Glucose 95, Calcium 8.5 Physical Exam Narrative Physical exam General: Alert, Oriented x3, Cooperative HEENT: Atraumatic, PERRLA, EOMI, Normocephalic Oral: No Gingival or Mucosal Lesions/ Ulcerations Neck: Supple, No JVD, Negative Carotid Bruits Lungs: Air entry diminished in bilateral lung bases. No crepitation/rhonchi Cardiovascular: Regular rate, Regular Rhythm, Normal S1, Normal S2, No murmurs Abdomen: Bowel Sounds Present, Soft, Non Tender, Non-Distended :Spontaneously voiding urine. Denies dysuria or new LUTS. No renal angle tenderness. No suprapubic tenderness. Extremities: No edema, Capillary Refill Less than 3 Seconds Skin: No rashes, No breakdown Musculoskeletal: Right knee immobilizer. No acute tenderness to Palpation of other joints or Extremities Neurological: Cranial nerves II-XII grossly intact, DTR 2+/4 and Symmetrical, Neuro grossly intact Psych/Mental Status: Normal Affect, Appropriate. Assessment & Plan Assessment/Plan (1) Closed nondisplaced fracture of right tibial plateau: PLAN: Plan 1.? Nondisplaced tibial plateau fracture on the right: [facility] Nonweightbearing for several weeks. Patient was evaluated by PT and OT and plan for SNF. Discussed with the case resource manager. Follow-up orthopedic surgery as an outpatient in 1 week. 2.? Hypertension ? Blood pressures are in normal range ? Continue with metoprolol DVT: Ambulation Charges/Coding Visit Charges Inpatient E&M: 81002 Subs Hosp L2 01/05/23 1420 <Electronically signed by Reece Najera MD> Cosigner Signature (if applicable): CC: ~ Signed [facility] Work Phone: 1(687) 985-537704-30-[address] Whalen [facility] January 04, 2023 10:09am Note Date/Time January 04, 2023 10: 09am [facility] Medical Records Department [address] [place] [address] Progress Note - Hospitalist 01/04/23 1008 MR#: [id number] Acct: [id number] Name: DERIC MERIDA Rep #:[id number] : 1945 77 From: Kb lu MD PCP: Dr. Julio C Washington MD Status:AD M [facility] Location: [place] [address] Subjective Subjective Doing well, knee pain is controlled Objective Data Objective Data Vital Signs: Vital Signs Temp Pulse Resp BP Pulse Ox O2 Del Method 99.4 F H 84 16 124/76 H 94 Room Air 01/04/23 07:58 01/04/23 07:58 01/04/23 07:58 01/04/23 07:58 01/04/23 07:58 01/04/23 08:20 Oxygen Delivery Method Room Air Weight: 181 lb 3.2 oz Body Mass Index (BMI) 30.1 Intake & Output: Intake and Output for Last 24 Hours 01/03/23 01/04/23 01/05/23 03:59 03:59 03:59 Intake Total 120 / 120 1500 / 1500 300 / 300 Output Total 350 / 350 850 / 850 250 / 250 Balance -230 / -230 650 / 650 50 / 50 Lab / Micro Data Result Diagrams: 01/03/23 05:26 01/03/23 05:26 Physical Exam Narrative General: Alert, Oriented x3, Cooperative, No apparent distress HEENT: Atraumatic, PERRLA, EOMI, Normocephalic Oral: Moist Mucosa Neck: Supple, No JVD Lungs: Clear to auscultation, Normal air movement, No rhonchi, No wheeze, No rales Cardiovascular: Regular rate, Regular Rhythm, Normal S1, Normal S2, No murmurs Abdomen: Soft, Non Tender, Non-Distended, No Hepato-splenomegaly Extremities: No edema, Capillary Refill Less than 3 Seconds, her right knee is swollen with decreased range of motion and pain to palpation Skin: No rashes, No breakdown Musculoskeletal: No Tenderness to Palpation of Joints or Extremities Neurological: Cranial nerves II-XII grossly intact, Motor Exam 5/5 strength throughout, Sensory exam intact to light touch and pain Psych/Mental Status: Normal Affect, Appropriate Assessment & Plan Assessment/Plan (1) Closed nondisplaced fracture of right tibial plateau: PLAN: Plan 1. Nondisplaced tibial plateau fracture on the right ? She she is to be nonweightbearing for several weeks ? She has been in a knee immobilizer and follow-up with orthopedic surgery in 1 week ? Evaluated by PT/OT, pending placement ? We will provide pain medication as needed 2. Hypertension ? Blood pressures are stable ? Continue with metoprolol DVT: Ambulation Charges/Coding Visit Charges Inpatient E&M: 72199 Subs Hosp L2 01/04/23 1009 <Electronically signed by Kb Whalen MD> Cosigner Signature (if applicable): CC: ~ Signed [facility] Work Phone: [phone]) 467-275804-29-[address] Whalen [facility] January 03, 2023 9:51am Note Date/Time January 03, 2023 9:[address] [facility] Medical Records Department [address] [place] [address] Progress Note - Hospitalist 01/03/23 0950 MR#: [id number] Acct: [id number] Name: DERIC MERIDA Rep #:[id number] : 1945 77 From: Kb lu MD PCP: Dr. Julio C Washington MD Status:[facility]AR Location: [place] CI436-4 Subjective Subjective Doing, pain is controlled. Still awaiting evaluation by physical therapy to determine disposition Objective Data Objective Data Vital Signs: Vital Signs Temp Pulse Resp BP Pulse Ox O2 Del Method 98.8 F 79 18 132/88 H 93 Room Air 01/03/23 08:58 01/03/23 09:01 01/03/23 08:58 01/03/23 09:01 01/03/23 08:58 01/03/23 09:00 Oxygen Delivery Method Room Air Weight: 181 lb 3.2 oz Body Mass Index (BMI) 30.1 Intake & Output: Intake and Output for Last 24 Hours 01/02/23 01/03/23 01/04/23 03:59 03:59 03:59 Intake Total 120 / 120 150 / 150 Output Total 350 / 350 Balance -230 / -230 150 / 150 Lab / Micro Data Result Diagrams: 01/03/23 05:26 01/03/23 05:26 Labs: Laboratory Results - last 24 hr 01/02/23 10:30: WBC 7.6, RBC 3.98 L, Hgb 11.7 L, Hct 37.0, MCV 93.0, MCH 29.4, MCHC 31.6 L, RDW Std Deviation 44.1 H, RDW Coeff of Charles 12.9, Plt Count 159, MPV10.6, Immature Gran % (Auto) 0.100, Neut % (Auto) 80.0 H, Lymph % (Auto) 11.0 L,[place] % (Auto) 7.1, Eos % (Auto) 1.4, Baso % (Auto) 0.4, Absolute Neuts (auto) 6.1, Absolute Lymphs (auto) 0.84, Nucleated RBC % 0 01/02/23 10:30: Sodium 140, Potassium 4.1, Chloride 116 H, Carbon Dioxide 22.0, Anion Gap 2 L, BUN 28 H, Creatinine 0.92, Estim Creat Clear Calc 45.35, Est GFR (MDRD) Af Amer 76, Est GFR (MDRD) Non-Af 62, BUN/Creatinine Ratio 30.3 H, Glucose 91, Calcium 9.0, Total Creatine Kinase 316 H 01/03/23 05:26: WBC 6.2, RBC 3.79 L, Hgb 11.2 L, Hct 35.2 L, MCV 92.9, MCH 29.6,MCHC 31.8 L, RDW Std Deviation 44.4 H, RDW Coeff of Charles 13.0, Plt Count 153, MPV11.1, Immature Gran % (Auto) 0.200, Neut % (Auto) 70.0, Lymph % (Auto) 18.3 L, [place] % (Auto) 6.1, Eos % (Auto) 5.1 H, Baso % (Auto) 0.3, Absolute Neuts (auto) 4.4, Absolute Lymphs (auto) 1.14, Nucleated RBC % 0 01/03/23 05:26: Sodium 142, Potassium 3.6, Chloride 112 H, Carbon Dioxide 22.0, Anion Gap 8, BUN 23 H, Creatinine 0.76, Estim Creat Clear Calc 41.72, Est GFR (MDRD) Af Amer 94, Est GFR (MDRD) Non-Af 78, BUN/Creatinine Ratio 30.2 H, Glucose 102, Calcium 8.5 Radiography Diagnostic Testing: Radiology Impression Knee X-Ray 01/02/23 10:50 IMPRESSION: Questionable nondisplaced lateral tibial plateau fracture. Joint effusion. Electronically Signed: Krish Becker MD at 11:05 EDT , Physical Exam Narrative General: Alert, Oriented x3, Cooperative, No apparent distress HEENT: Atraumatic, PERRLA, EOMI, Normocephalic Oral: Moist Mucosa Neck: Supple, No JVD Lungs: Clear to auscultation, Normal air movement, No rhonchi, No wheeze, No rales Cardiovascular: Regular rate, Regular Rhythm, Normal S1, Normal S2, No murmurs Abdomen: Soft, Non Tender, Non-Distended, No Hepato-splenomegaly Extremities: No edema, Capillary Refill Less than 3 Seconds, her right knee is swollen with decreased range of motion and pain to palpation Skin: No rashes, No breakdown Musculoskeletal: No Tenderness to Palpation of Joints or Extremities Neurological: Cranial nerves II-XII grossly intact, Motor Exam 5/5 strength throughout, Sensory exam intact to light touch and pain Psych/Mental Status: Normal Affect, Appropriate Assessment & Plan Assessment/Plan (1) Closed nondisplaced fracture of right tibial plateau: PLAN: Plan 1. Nondisplaced tibial plateau fracture on the right ? She she is to be nonweightbearing for several weeks ? She has been in a knee immobilizer and follow-up with orthopedic surgery in 1 week ? She lives alone therefore we will have her evaluate by PT and OT for possible placement ? We will provide pain medication as needed 2. Hypertension ? Blood pressures are stable ? Continue with metoprolol DVT: Ambulation Charges/Coding Visit Charges Inpatient E&M: 70488 Subs Hosp L2 01/03/23 0951 <Electronically signed by Kb Whalen MD> Cosigner Signature (if applicable): CC: ~ Signed [facility] Work Phone: 1(422) 552-294404-28-2023 History and physical note Author Dr. Whalen [facility] January 02, 2023 3:52pm Note Date/Time January 02, 2023 3:5 2pm [facility] Medical Records Department [address] [place] [address] H&P Exam - Hospitalist 01/02/23 1541 MR#: [id number] Acct: [id number] Name: DERIC MERIDA Rep #:[id number] : 1945 77 From: Kb lu MD PCP: Dr. Julio C Washington MD Status:AD M [facility] Location: [place] UN149-6 HPI - General General Date of Admission: 01/02/23 HPI Narrative DERIC MERIDA, is a 77 F who presents to the hospital with right knee pain aftera fall in her garage. This was a purely mechanical fall as she had to clean outher garage in order to get it empty for [employer] to fix her lorena. Knee x- ray demonstrates a possible tibial plateau fracture, the ED physician reviewed the films with orthopedic surgery who felt that she had a very fine tibial plateau toe fracture that was not amenable to surgery and that she shouldjust be not on weight bearing, unfortunately she lives alone so does request that she be admitted for PT and OT evaluation and possible placement. She has been in the immobilizer as well. Has a work-up in the ER is unremarkable. She did not lose any consciousness given that she did hit her head. [facility] Home Medications ibuprofen 125 mg-acetaminophen 250 mg tablet (Advil Dual Action) 2 tab PO BID RA01/02/23 [History Last Taken 01/02/23 08:00] metoprolol succinate 25 mg capsule sprinkle, ext. release 24 hr 12.5 mg PO DAILYbp 01/02/23 [History Last Taken 01/02/23 08:00] ropinirole 2 mg tablet 4 mg PO TID restless legs 01/02/23 [History Last Taken 01/02/23 08:00] Allergy/AdvReac Type Severity Reaction Status Date / Time No Known Allergies Allergy Verified 01/02/23 09:41 Family History (Updated 01/02/23 @ 15:[address] Kb Whalen MD) Other Heart disease Surgical History (Updated 01/02/23 @ 15:[address] Kb Whalen MD) H/O: hysterectomy Social History Smoking Status: Former smoker ROS Constitutional Constitutional: Denies chills, fatigue, fever(s) or malaise Eyes Eyes: Denies blurry vision ENT HEENT: Denies headache(s) or nasal discharge Cardiovascular Cardiovascular: Denies chest pain, dyspnea on exertion or syncope Respiratory/Chest Respiratory/Chest: Denies cough, shortness of breath at rest or shortness of breath with exertion Gastrointestinal Gastrointestinal: Denies constipation, diarrhea, nausea or vomiting Genitourinary Genitourinary: Denies dysuria Musculoskeletal Musculoskeletal: Reports joint pain Neurologic Neurologic: Denies focal weakness, numbness or tremor(s) Psychiatric Psychiatric: Denies anxiety or depression Vital Signs Vital Signs Vital Signs: 01/02/23 09:43 01/02/23 09:45 01/02/23 13:43 Temperature 99.1 F 98 F Temperature Source Oral Temporal Pulse Rate 86 81 Respiratory Rate 16 16 Respiratory Effort Normal Non-Labored Respiratory Depth Normal Respiratory Pattern Normal Blood Pressure 155/70 H 149/72 H Blood Pressure Mean 98 97 Blood Pressure Source Blood Pressure Position Blood Pressure Location Pulse Ox 95 95 96 Oxygen Delivery Method Room Air Room Air Room Air 01/02/23 15:11 01/02/23 15:11 Temperature 98.1 F Temperature Source Oral Pulse Rate 70 Respiratory Rate 18 Respiratory Effort Normal Respiratory Depth Respiratory Pattern Blood Pressure 148/88 H Blood Pressure Mean 108 Blood Pressure Source Monitor Blood Pressure Position Semi-Fowlers Blood Pressure Location Right Arm Pulse Ox 100 Oxygen Delivery Method Room Air Room Air Weight Weight: 181 lb 3.2 oz Body Mass Index (BMI) 30.1 Physical Exam Narrative General: Alert, Oriented x3, Cooperative, No apparent distress HEENT: Atraumatic, PERRLA, EOMI, Normocephalic Oral: Moist Mucosa Neck: Supple, No JVD Lungs: Clear to auscultation, Normal air movement, No rhonchi, No wheeze, No rales Cardiovascular: Regular rate, Regular Rhythm, Normal S1, Normal S2, No murmurs Abdomen: Soft, Non Tender, Non-Distended, No Hepato-splenomegaly Extremities: No edema, Capillary Refill Less than 3 Seconds, her right knee is swollen with decreased range of motion and pain to palpation Skin: No rashes, No breakdown Musculoskeletal: No Tenderness to Palpation of Joints or Extremities Neurological: Cranial nerves II-XII grossly intact, Motor Exam 5/5 strength throughout, Sensory exam intact to light touch and pain Psych/Mental Status: Normal Affect, Appropriate Results Lab / Micro Data Result Diagrams: 01/02/23 10:30 01/02/23 10:30 Labs: Laboratory Results - last 24 hr 01/02/23 10:30: WBC 7.6, RBC 3.98 L, Hgb 11.7 L, Hct 37.0, MCV 93.0, MCH 29.4, MCHC 31.6 L, RDW Std Deviation 44.1 H, RDW Coeff of Charles 12.9, Plt Count 159, MPV10.6, Immature Gran % (Auto) 0.100, Neut % (Auto) 80.0 H, Lymph % (Auto) 11.0 L,[place] % (Auto) 7.1, Eos % (Auto) 1.4, Baso % (Auto) 0.4, Absolute Neuts (auto) 6.1, Absolute Lymphs (auto) 0.84, Nucleated RBC % 0 01/02/23 10:30: Sodium 140, Potassium 4.1, Chloride 116 H, Carbon Dioxide 22.0, Anion Gap 2 L, BUN 28 H, Creatinine 0.92, Estim Creat Clear Calc 45.35, Est GFR (MDRD) Af Amer 76, Est GFR (MDRD) Non-Af 62, BUN/Creatinine Ratio 30.3 H, Glucose 91, Calcium 9.0, Total Creatine Kinase 316 H Radiology Impression Knee X-Ray 01/02/23 10:50 IMPRESSION: Questionable nondisplaced lateral tibial plateau fracture. Joint effusion. Electronically Signed: Krish Becker MD at 11:05 EDT , Assessment & Plan Assessment/Plan (1) Closed nondisplaced fracture of right tibial plateau: PLAN: Plan 1. Nondisplaced tibial plateau fracture on the right ? She she is to be nonweightbearing for several weeks ? She has been in a knee immobilizer and follow-up with orthopedic surgery in 1 week ? She lives alone therefore we will have her evaluate by PT and OT for possible placement ? We will provide pain medication as needed 2. Hypertension ? Blood pressures are stable ? Continue with metoprolol DVT: Ambulation 75 minutes was spent on direct patient care as well as chart review and collaboration with colleagues Charges/Coding Visit Charges Inpatient E&M: 94658 Init Hosp L3 01/02/23 1552 <Electronically signed by Kb Whalen MD> Cosigner Signature (if applicable): CC: Dr. Julio C Washington MD; Dr. Kb Whalen MD~ Signed [facility] Work Phone: 1(118) 338-426404-28-[address] Martinez [facility] January 02, 2023 12:38pm Note Date/Time January 02, 2023 10: 38am [facility] Medical Records Department [address] [place] [address] Emergency Department Summary 01/02/23 MR#: [id number] Acct: [id number] Name: DERIC MERIDA Rep #:[id number] : 1945 77 From: Carol Briggs PCP: Dr. Julio C Washington MD Status:RE G ER Location: ED HPI History of Present Illness Chief Complaint: Fall Informant: patient Narrative Narrative: Patient is a 77-year-old female presenting after mechanical fall. He states shefell in her garage yesterday afternoon. She landed mostly on her right knee which has been swollen and painful since. She did hit her head but denies any loss of conscious. S She notes that she has chronic numbness of her legs whichhas been thoroughly worked up and they do not know why. She lives home independently. She is currently with her neighbor. She normally ambulates independently. Has no other complaints or concerns at this time. Is most concerned about her pain. Did not take anything for pain as she was to start onmetoprolol and did not know what would interact with this. Is adamant she is not on any blood thinners PFSH PFS Home Medications ibuprofen 125 mg-acetaminophen 250 mg tablet (Advil Dual Action) 2 tab PO BID 01/02/23 [History Last Taken Unknown] metoprolol succinate 25 mg capsule sprinkle, ext. release 24 hr 12.5 mg PO DAILY01/02/23 [History Last Taken Unknown] ropinirole 2 mg tablet 2 mg PO TID 01/02/23 [History Last Taken Unknown] Allergy/AdvReac Type Severity Reaction Status Date / Time No Known Allergies Allergy Verified 01/02/23 09:41 Social History Smoking Status: Never smoker ROS ROS ED Constitutional Constitutional ED: Denies chills or fever(s) Eyes Eyes: Denies blurry vision or change in vision ENT ENT ED: Denies ear pain or rhinorrhea Cardiovascular Cardiovascular: Denies chest pain Respiratory/Chest Respiratory/Chest: Denies cough Gastrointestinal Gastrointestinal: Denies abdominal pain, nausea or vomiting Musculoskeletal Musculoskeletal: Reports myalgias and other Details: right knee pain and swelling ; Denies arthralgias Integumentary Denies rash Neurologic Neurologic: Reports paresthesias; Denies headache(s) or weakness Psychiatric Psychiatric: Denies anxiety Hematologic/Lymphatic Hematologic/Lymphatic: Denies easy bleeding or easy bruising EXAM Physical Exam Const Vital Signs: 01/02/23 09:43 01/02/23 09:45 Temperature 99.1 F Temperature Source Oral Pulse Rate 86 Respiratory Rate 16 Respiratory Effort Normal Non-Labored Respiratory Depth Normal Respiratory Pattern Normal Blood Pressure 155/70 H Blood Pressure Mean 98 Pulse Ox 95 95 Oxygen Delivery Method Room Air Room Air Positive well nourished and well developed General Appearance ED: well developed and NAD HEENT Reports TM's clear atraumatic Tympanic Membrane ED: Yes TM's clear Eyes PERRL and EOMs intact bilaterally Neck full ROM General: Negative for tenderness Chest Wall inspection of chest normal and palpation of chest normal Resp normal respiratory effort and clear to auscultation bilaterally Cardio regular rhythm and no murmurs Rate: regular rate GI normal to inspection, nondistended, normoactive bowel sounds and non-tender Extremity Extremity Narrative: Decreased range of motion with diffuse tenderness of the right knee. Significant effusion present. Patient is not able to elevate a straight leg offthe bed. 2+ bilateral distal pulses. No pain with logroll. Pelvis is stable. No other bony tenderness appreciated. Neuro oriented x3, moves all extremities, no focal motor deficits and no sensory deficits noted Psych mental status grossly normal and thought process normal Skin no rashes or lesions noted MDM MDM MDM Narrative Medical decision making narrative: Patient is evaluated for knee pain after mechanical fall. She appears nontoxic and in no acute distress. Is quite uncomfortable with a large effusion of the right knee. Differential includes patellar fracture, tibial plateau fracture and quadricep tendon injury. She does not have a high riding patella at this time. She is given IV morphine for pain control. She otherwise has a normal exam and denies any other injuries. She states she did hit her head slightly when she fell but she had no loss of consciousness and does not want a head CT. She is acting appropriate at this time. On repeat evaluation she is more comfortable. X-ray interpreted by myself as well as radiology is consistent with a nondisplaced lateral tibial plateau fracture on the right. Case is discussed with Dr. Yeager, orthopedist on-call who states this is nonoperative and just needs nonweightbearing status. Patient is placed in a knee immobilizer. As patient lives home alone she is concerned about her ability to perform ADLs witha nonweightbearing status. Will be admitted to the hospital service for PT OT evaluation and possible placement if needed. Patient agreeable with this. Casediscussed with admitting physician, Dr. Rogers Lab Data Labs: Laboratory Results - last 24 hr 01/02/23 01/02/23 10:30 10:30 WBC 7.6 RBC 3.98 L Hgb 11.7 L Hct 37.0 MCV 93.0 MCH 29.4 MCHC 31.6 L RDW Std Deviation 44.1 H RDW Coeff of Charles 12.9 Plt Count 159 MPV 10.6 Immature Gran % (Auto) 0.100 Neut % (Auto) 80.0 H Lymph % (Auto) 11.0 L [place] % (Auto) 7.1 Eos % (Auto) 1.4 Baso % (Auto) 0.4 Absolute Neuts (auto) 6.1 Absolute Lymphs (auto) 0.84 Nucleated RBC % 0 Sodium 140 Potassium 4.1 Chloride 116 H Carbon Dioxide 22.0 Anion Gap 2 L BUN 28 H Creatinine 0.92 Estim Creat Clear Calc 45.35 Est GFR (MDRD) Af Amer 76 Est GFR (MDRD) Non-Af 62 BUN/Creatinine Ratio 30.3 H Glucose 91 Calcium 9.0 Total Creatine Kinase 316 H Radiography Diagnostic Testing: Clinical Impression(s) from Imaging Studies Knee X-Ray 01/02/23 10:50 IMPRESSION: Questionable nondisplaced lateral tibial plateau fracture. Joint effusion. Electronically Signed: Krish Becker MD at 11:05 EDT , Discharge Plan Triage Chief Complaint: Fall ED Provider: Carol Martinez Dx/Rx/DC Orders Clinical Impression: Closed nondisplaced fracture of right tibial plateau, Difficulty in walking Prescriptions: No Action ropinirole 2 mg Tablet 2 mg PO TID Advil Dual Action 125-250 mg Tablet 2 tab PO BID metoprolol succinate 25 mg Capsule,Sprinkle,Er 24hr 12.5 mg PO DAILY Primary Care Provider: Julio C Washington Referrals: Julio C Washington MD [Primary Care Provider] - Disposition Disposition: Acute Care Hospital [facility] What to do if you have Problems For any increased pain, shortness of breath, bleeding, nausea or vomiting, chestpain, or any unexpected problems, contact your Primary Care Provider. Call [facility] ([phone]) or report to the closest Emergency Room. Call 911 if necessary. 01/02/23 1238 <Electronically signed by Carol Martinez DO> Cosigner Signature (if applicable): CC: Dr. Julio C Washington MD ~ Signed [facility] Work Phone: [phone]) 409-536204-13-2023 Miscellaneous Notes* Telephone Encounter - Analilia Marsh Shavon - 12/18/2022 8:24 AM EDT Scheduled with Camila Arevalo today. Pt accepted appt. Analilia Farleylisa Hastings documented [facility] Miscellaneous Notes* Telephone Encounter - Tena Driscoll Ma - 11/21/2022 8:13 AM EDT Pt sent [employer] message notifying her of this. Tena Driscoll Ma * Telephone Encounter - Julio C Washington MD - 11/20/2022 5:16 PM EDT I do not think she needs an appt at this time, may follow up prn Julio C Washington MD * Telephone Encounter - Tena Driscoll Ma - 11/17/2022 8:25 AM EDT See message, do you think she needs an appt? Tena Dricsoll Ma * Telephone Encounter - Tena Driscoll Ma - 11/10/2022 8:23 AM EST Attached records as requested by pt in [employer] message. Tena Driscoll Ma documented in this encounter[facility]23 History of Present illness Narrative* Peyton Crandall, OD - 11/14/2022 10:03 AM EST 1. Glaucoma suspect of both eyes IOP: 19/20 OCT: Superior thinning left eye 24-2 11/14/22: normal right eye, sup/nasal defect left eye (low reliability) -OCT and 24-2 left eye do not correlate as far as location of defect Cup/disc assymmetry: OS/OD Called to obtain outside records again today 2. Pseudophakia of both eyes 3. Presbyopia Monitor Follow-up in 4 months for repeat 24-2 (left eye first) and IOP check -consider drop therapy left eye Peyton Crandall, OD November 14, 2022 10:03 AM documented in this encounterSelect [facility]-23-2023 Miscellaneous Notes* Telephone Encounter - Chante Strickland Ma - 10/30/2022 9:33 AM EST PA approved from 09/07/22-09/06/23 Chante Strickland Ma * Telephone Encounter - Chante Strickland Ma - 10/28/2022 12:53 PM EST Received paper fax for Ropinirole. [facility] documented in this encounter[facility]23 Miscellaneous Notes* Telephone Encounter - Tena Driscoll Ma - 09/22/2022 8:19 AM EST See attachments from pt. I have notified her to contact Dr. Lopez's office to see if they can send us her records. If they need signed paperwork will have her stop in the office to sign so we can faxit to them. Tena Driscoll Ma documented in this encounterSelect [facility]-13-2023 History of Present illness Narrative* Peyton Crandall, OD - 09/19/2022 3:26 PM EST 1. Glaucoma suspect of both eyes IOP: 15/15 Superior thinning left eye Cup/disc assymmetry: OS/OD Plan to obtain outside medical records including previous OCT/visual minor Follow-up in 2 months for 24-2 and IOP check 2. Pseudophakia of both eyes Stable-monitor 3. Presbyopia Continue with current glasses Peyton Crandall, OD September 19, 2022 3:26 PM documented in this encounterSelect [facility] History of Present illness Narrative* Julio C Washington MD - 09/19/2022 9:49 AM EST Chief Complaint Patient presents with: Follow Up HPI Deric Merida is a 77 year old female who presents here today to discuss labs. Pt recently seen in office on 08/25/22 for routine follow up. Pt completed labs on 09/10/22 that she would like to go over in detail. Reviewed all her labs and her DEXA scan, and compared her current results to her previous results. 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 She will upload of copy of previous Rheum consult. Off osteoporosis medication; DEXA scan shows osteopenia. Will plan to repeat in 2 years. Kidney function stable. HM - Declines Flu shot. Past medical history, appointments, medications, allergies reviewed. Previous Medical History History reviewed. No pertinent past medical history. Previous Surgical History PAST SURGICAL HISTORY Procedure Laterality Date COLONOSCOPY N/A 08/22/2014 D&C, DIAG AND/OR THERAPEUTIC N/A 03/1969 EGD N/A 08/22/2014 L'SCOPE CHOLECYSTECTOMY N/A 1961 Exploratory surgery R side pain PAST SURGICAL HISTORY OF N/A 01/10/2014 Uterine Suspension REMV CATARACT EXTRACAP,INSERT LENS Left 04/05/2014 REMV CATARACT EXTRACAP,INSERT LENS Right 03/22/2014 REVISE MEDIAN N/CARPAL TUNNEL SURG Left 03/12/2011 REVISE MEDIAN N/CARPAL TUNNEL SURG Right 04/07/2011 TOTAL ABDOM HYSTERECTOMY N/A 03/13/2015 Family History FAMILY HISTORY Problem Relation Age of Onset Cancer Father Prostate cancer Patient Allergies ALLERGIES Allergen Reactions Baclofen Other: See Comments Nausea and headache Cymbalta [Duloxetin* Myalgia Lethargic, depressed and pain worse. Weight gain Diclofenac Other: See Comments Hiccups, strange dreams, GI issues and feeling faint Flexeril [Cyclobenz* Other: See Comments Sleep issues and headache Lyrica [Pregabalin] Other: See Comments Unable to sleep. Gabapentin no effect, doesn't want to take Temazepam Other: See Comments Hiccups, headache, nausea, dizzy, lethargic, disoriented Current Medications Current Outpatient Medications on File Prior to Visit Medication Sig ibuprofen-acetaminophen (ADVIL DUAL ACTION) 125-250 mg tab Take 250 mg by mouth twice daily as needed. rOPINIRole 2 mg 24 hr tablet Take 2 tablets by mouth three times daily. tiZANidine HCl (ZANAFLEX) 4 mg capsule Take 1 capsule by mouth as needed. YEA-Snhezwmhygzts-Ufyu-Buffers (VANQUISH) 227-194-33 mg tab 2 as needed No current facility-administered medications on file prior to visit. Social History Social History Tobacco Use Smoking status: Former Types: Cigarettes Quit date: 1979 Years since quittin.0 Smokeless tobacco: Never Substance Use Topics Alcohol use: Yes Comment: Rare occasion - wine Drug use: Never EXAM: Wt 83.6 kg (184 lb 3.2 oz) LMP (LMP Unknown) BMI 31.62 kg/m General Appearance: Well appearing, alert, in no acute distress, well-hydrated, well nourished.. Health Maintenance List HEPATITIS C SCREENING Never done DTAP,TDAP,TD(1 - Tdap) Never done SHINGRIX VACCINE(1 of 2) Never done PNEUMOCOCCAL: 65+(1 - PCV) Never done INFLUENZA(1) Never done ADVANCE DIRECTIVE DISCUSSION due on 09/07/2022 DEPRESSION ASSESSMENT due on 09/07/2022 DIABETES SCREEN due on 09/16/2025 BONE DENSITY Completed COVID-19 VACCINE Completed Data reviewed Appointment on 09/16/2022 Component Date Value Hemoglobin A1C 09/16/2022 5.2 Estimated Average Glucose 09/16/2022 103 GGT 09/16/2022 14 TSH 09/16/2022 2.580 Free T4 09/16/2022 1.0 T3 09/16/2022 117 TPO ANTIBODY 09/16/2022 2.7 Magnesium 09/16/2022 2.3 Rheumatoid Factor 09/16/2022 28 (A) JOEL by EIA, Qual 09/16/2022 Negative Sed Rate, Westergren 09/16/2022 2 CCP Antibody IgG Qualit* 09/16/2022 Negative CCP Antibody, IgG 09/16/2022 <15 Uric Acid 09/16/2022 4.5 CRP 09/16/2022 <0.3 Hospital Outpatient Visit on 09/10/2022 Component Date Value LOWEST T-SCORE 09/10/2022 -2.3 Appointment on 09/10/2022 Component Date Value Cholesterol, Total 09/10/2022 219 (A) Triglyceride 09/10/2022 89 HDL Cholesterol 09/10/2022 58 Non HDL Cholesterol 09/10/2022 161 (A) Fasting Time 09/10/2022 10 VLDL Cholesterol 09/10/2022 18 TC:HDL Ratio 09/10/2022 3.78 LDL Cholesterol 09/10/2022 143 (A) LDL:HDL Ratio 09/10/2022 2.47 Protein, Total 09/10/2022 6.4 Albumin 09/10/2022 4.5 Calcium, Total 09/10/2022 9.3 Bilirubin, Total 09/10/2022 0.5 Alkaline Phosphatase 09/10/2022 57 AST 09/10/2022 25 ALT 09/10/2022 19 Glucose 09/10/2022 89 BUN 09/10/2022 31 (A) Creatinine 09/10/2022 1.00 (A) Sodium 09/10/2022 142 Potassium 09/10/2022 4.6 Chloride 09/10/2022 109 (A) CO2 09/10/2022 22 Anion Gap 09/10/2022 11 Estimated Glomerular Manuelito* 09/10/2022 58 (A) WBC 09/10/2022 6.89 RBC 09/10/2022 4.38 Hemoglobin 09/10/2022 12.8 Hematocrit 09/10/2022 41.3 MCV 09/10/2022 94.3 MCH 09/10/2022 29.2 MCHC 09/10/2022 31.0 RDW-CV 09/10/2022 13.2 Platelet Count 09/10/2022 195 MPV 09/10/2022 11.3 Neut% 09/10/2022 65.7 Abs Neut 09/10/2022 4.53 Lymph% 09/10/2022 23.9 Abs Lymph 09/10/2022 1.65 [place]% 09/10/2022 7.0 Abs [place] 09/10/2022 0.48 Eosin% 09/10/2022 2.5 Abs Eosin 09/10/2022 0.17 Baso% 09/10/2022 0.6 Abs Baso 09/10/2022 0.04 Immature Gran % 09/10/2022 0.3 Abs Immature Gran 09/10/2022 <0.03 NRBC 09/10/2022 0.0 Absolute nRBC 09/10/2022 <0.01 Diff Type 09/10/2022 Auto Vitamin B12 09/10/2022 286 Vitamin D 25 Hydroxy 09/10/2022 24.4 (A) Results Only on 08/26/2022 Component Date Value Spinal Surgeon 08/26/2022 Value:Provider ARGUELLO your patient DERIC MERIDA started their Yen on 08-26-2022 and completed it on 08-26-2022 Yen program: PATIENT SAFETY AND FALL PREVENTION ASSESSMENT/PLAN: 1. Fibromyalgia - ICD9: 729.1, ICD10: M79.7 (primary diagnosis) 2. Rheumatoid arthritis, involving unspecified site, unspecified whether rheumatoid factor present (HCC) - ICD9: 714.0, ICD10: M06.9 Monitor; offered Rheum eval but she declines at this time 3. Osteoporosis, unspecified osteoporosis type, unspecified pathological fracture presence - ICD9: 733.00, ICD10: M81.0 Recheck DEXA in 2 years Recommend vit D 1000 IU daily Follow up prn I spent a total of 35 minutes on the date of the service which included preparing to see the patient, [id number] patient care, completing clinical documentation, obtaining and/or reviewing separately obtained history, and counseling and educating the patient/family/caregiver. Julio C Washingotn MD documented in this encounterSelect [facility]-12-2023 Evaluation note* Diagnosis Onset Date Resolution Status Admit Date High cholesterol September 18, 2022 acute July 26, 2024 1:00pm History of blood clots February 09, 2023 acute July 26, 2024 1:00pm History of carpal tunnel surgery acute July 26, 2 024 1:00pm History of dilatation and curettage acute July 26, 2 024 1:00pm History of DVT of lower extremity acute July 26, 2 024 1:00pm History of uterine suspension procedure acute July 262023 1:00pm Hx of cataract surgery acute No [email or web address] 1:00pm Hx of foot surgery acute Novemb er 2023 1:00pm Migraines September 07, 1955 acute Novembe r 2023 1:00pm Osteoarthritis July 13, 2007 acute No [email or web address] 1:00pm Osteopenia acute July 26, 2024 1:00pm Rheumatoid arthritis February 05, 2019 acute July 26, 2024 1:00pm Surgical wound dehiscence acute July 26, 2024 1:00pm GERD (gastroesophageal reflux disease) chronic July 26, 2 024 1:00pm Hypertension chronic July 1:00pm Lumbar radiculopathy chronic [facility] 2023 1:00pm 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 July 26, 2 024 1:00pm Osteoporosis September 07, 2006 chronic Novem darcy 2023 1:00pm Post-thrombotic syndrome chronic July 26, 2024 1:00pm Restless leg syndrome chronic Jul [facility]2023 1:00pm 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 July 26, 2 024 1:00pm High cholesterol September 18, 2022 acute September 06, 2024 10:00am History of blood clots February 09, 2023 acute September 06, 2024 10:00am History of carpal tunnel surgery acute September 06, 2 024 10:00am History of dilatation and curettage acute September 06, 2 024 10:00am History of DVT of lower extremity acute September 06, 2 024 10:00am History of uterine suspension procedure acute September 062023 10:00am Hx of cataract surgery acute 2023 10:00am Hx of foot surgery acute Decemb er 2023 10:00am Migraines September 07, 1955 acute Decembe r 2023 10:00am Osteoarthritis July 13, 2007 acute 2023 10:00am Osteopenia acute September 06, 2024 10:00am Rheumatoid arthritis February 05, 2019 acute September 06, 2024 10:00am Surgical wound dehiscence acute September 06, 2024 10:00am GERD (gastroesophageal reflux disease) chronic September 06, 2 024 10:00am Hypertension chronic August 10:00am Lumbar radiculopathy chronic Dece mber 2023 10:00am 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 September 06, 2 024 10:00am Osteoporosis September 07, 2006 chronic Decem darcy 2023 10:00am Post-thrombotic syndrome chronic September 06, 2024 10:00am Restless leg syndrome chronic Dec ember 2023 10:00am 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 September 06, 024 10:00am High cholesterol September 18, 2022 acute September 27, 2024 1:05pm History of blood clots February 09, 2023 acute September 27, 2024 1:05pm History of carpal tunnel surgery acute September 27 1:05pm History of dilatation and curettage acute September 27 1:05pm History of DVT of lower extremity acute September 27 1:05pm History of uterine suspension procedure acute September 1:05pm Hx of cataract surgery acute 2024 1:05pm Hx of foot surgery acute 2024 1:05pm Migraines September 07, 1955 acute September 27, 2024 1:05pm Osteoarthritis July 13, 2007 acute 2024 1:05pm Osteopenia acute September 27, 2024 1:05pm Rheumatoid arthritis February 05, 2019 acute September 27, 2024 1:05pm Surgical wound dehiscence acute September 27, 2024 1:05pm GERD (gastroesophageal reflux disease) chronic September 27 1:05pm Hypertension chronic September 1:05pm Lumbar radiculopathy chronic Sedrick [email or web address] 1:05pm 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 September 27 1:05pm Osteoporosis September 07, 2006 chronic Sepua ry 2024 1:05pm Post-thrombotic syndrome chronic September 27, 2024 1:05pm Restless leg syndrome chronic Sep 1:05pm 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 September 27 1:05pm High cholesterol September 18, 2022 acute October 11, 2024 12:57pm History of blood clots February 09, 2023 acute October 11, 2024 12:57pm History of carpal tunnel surgery acute October 11 12:57pm History of dilatation and curettage acute October 11 12:57pm History of DVT of lower extremity acute October 11 12:57pm History of uterine suspension procedure acute October 12:57pm Hx of cataract surgery acute Fe bru2024 12:57pm Hx of foot surgery acute ua ry 2024 12:57pm Migraines September 07, 1955 acute uar y 2024 12:57pm Osteoarthritis July 13, 2007 acute Fe bruary 2024 12:57pm Osteopenia acute October 11, 2024 12:57pm Rheumatoid arthritis February 05, 2019 acute October 11, 2024 12:57pm Surgical wound dehiscence acute October 11, 2024 12:57pm GERD (gastroesophageal reflux disease) chronic October 11 12:57pm Hypertension chronic October 12:57pm Lumbar radiculopathy chronic 2024 12:57pm 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 October 11 12:57pm Osteoporosis September 07, 2006 chronic u [email or web address] 12:57pm Post-thrombotic syndrome chronic October 11, 2024 12:57pm Restless leg syndrome chronic Feb ru2024 12:57pm 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 Work Phone: [phone]) 907-116401-12-2023 Evaluation note* Diagnosis Onset Date Resolution Status Admit Date High cholesterol September 18, 2022 acute September 06, 2024 10:00am History of blood clots February 09, 2023 acute September 06, 2024 10:00am History of carpal tunnel surgery acute September 06 10:00am History of dilatation and curettage acute September 06 10:00am History of DVT of lower extremity acute September 06 10:00am History of uterine suspension procedure acute September 062023 10:00am Hx of cataract surgery acute 2023 10:00am Hx of foot surgery acute [facility] er 2023 10:00am Migraines September 07, 1955 acute Decembe r 2023 10:00am Osteoarthritis July 13, 2007 acute 2023 10:00am Osteopenia acute September 06, 2024 10:00am Rheumatoid arthritis February 05, 2019 acute September 06, 2024 10:00am Surgical wound dehiscence acute September 06, 2024 10:00am GERD (gastroesophageal reflux disease) chronic September 06 024 10:00am Hypertension chronic August 10:00am Lumbar radiculopathy chronic Dece mber 2023 10:00am 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 September 06 024 10:00am Osteoporosis September 07, 2006 chronic Decem darcy 2023 10:00am Post-thrombotic syndrome chronic September 06, 2024 10:00am Restless leg syndrome chronic Dec emb2023 10:00am 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 September 06 10:00am High cholesterol September 18, 2022 acute September 27, 2024 1:05pm History of blood clots February 09, 2023 acute September 27, 2024 1:05pm History of carpal tunnel surgery acute September 27 1:05pm History of dilatation and curettage acute September 27 1:05pm History of DVT of lower extremity acute September 27 1:05pm History of uterine suspension procedure acute September 1:05pm Hx of cataract surgery acute 2024 1:05pm Hx of foot surgery acute 2024 1:05pm Migraines September 07, 1955 acute September 27, 2024 1:05pm Osteoarthritis July 13, 2007 acute Ja 2024 1:05pm Osteopenia acute September 27, 2024 1:05pm Rheumatoid arthritis February 05, 2019 acute September 27, 2024 1:05pm Surgical wound dehiscence acute September 27, 2024 1:05pm GERD (gastroesophageal reflux disease) chronic September 27 1:05pm Hypertension chronic September 1:05pm Lumbar radiculopathy chronic Sedrick mendel 2024 1:05pm 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 September 27 1:05pm Osteoporosis September 07, 2006 chronic Sepua ry 2024 1:05pm Post-thrombotic syndrome chronic September 27, 2024 1:05pm Restless leg syndrome chronic Shai uary 2024 1:05pm 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 September 27 1:05pm High cholesterol September 18, 2022 acute October 11, 2024 12:57pm History of blood clots February 09, 2023 acute October 11, 2024 12:57pm History of carpal tunnel surgery acute October 11 12:57pm History of dilatation and curettage acute October 11 12:57pm History of DVT of lower extremity acute October 11 12:57pm History of uterine suspension procedure acute October 12:57pm Hx of cataract surgery acute 2024 12:57pm Hx of foot surgery acute 2024 12:57pm Migraines September 07, 1955 acute 2024 12:57pm Osteoarthritis July 13, 2007 acute 2024 12:57pm Osteopenia acute October 11, 2024 12:57pm Rheumatoid arthritis February 05, 2019 acute October 11, 2024 12:57pm Surgical wound dehiscence acute October 11, 2024 12:57pm GERD (gastroesophageal reflux disease) chronic October 11 12:57pm Hypertension chronic October 12:57pm Lumbar radiculopathy chronic 2024 12:57pm 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 October 11 12:57pm Osteoporosis September 07, 2006 chronic [email or web address] 12:57pm Post-thrombotic syndrome October 11, 2024 12:57pm Restless leg syndrome chronic Oct ru2024 12:57pm 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 Work Phone: 1(131) 569-987901-12-2023 Evaluation note* Diagnosis Onset Date Resolution Status Admit Date High cholesterol September 18, 2022 acute September 06, 2024 10:00am History of blood clots February 09, 2023 acute September 06, 2024 10:00am History of carpal tunnel surgery acute September 06 10:00am History of dilatation and curettage acute September 06 10:00am History of uterine suspension procedure acute September 062023 10:00am Hx of cataract surgery acute 2023 10:00am Hx of foot surgery acute [facility] er 2023 10:00am Migraines September [birth year], 1955 acute Decee r 2023 10:00am Osteoarthritis July 13, 2007 acute 2023 10:00am Osteopenia acute September 06, 2024 10:00am Rheumatoid arthritis February 05, 2019 chronic September 06, 2024 10:00am Surgical wound dehiscence acute September 06, 2024 10:00am GERD (gastroesophageal reflux disease) chronic September 06, 024 10:00am Hypertension chronic August 10:00am Lumbar radiculopathy chronic Dece mber 2023 10:00am 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 September 06, 2024 10:00am Osteoporosis September 07, 2006 chronic Decem darcy 2023 10:00am Post-thrombotic syndrome chronic September 06, 2024 10:00am Restless leg syndrome chronic Dec ember 2023 10:00am 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 September 06 024 10:00am History of DVT of lower extremity resolved September 06 024 10:00am High cholesterol September 18, 2022 acute September 27, 2024 1:05pm History of blood clots February 09, 2023 acute September 27, 2024 1:05pm History of carpal tunnel surgery acute September 27 1:05pm History of dilatation and curettage acute September 27 1:05pm History of uterine suspension procedure acute September 1:05pm Hx of cataract surgery acute 2024 1:05pm Hx of foot surgery acute 2024 1:05pm Migraines September [birth year], 1955 acute September 27, 2024 1:05pm Osteoarthritis July 13, 2007 acute 2024 1:05pm Osteopenia acute September 27, 2024 1:05pm Rheumatoid arthritis February 05, 2019 chronic September 27, 2024 1:05pm Surgical wound dehiscence acute September 27, 2024 1:05pm GERD (gastroesophageal reflux disease) chronic September 27 1:05pm Hypertension chronic September 1:05pm Lumbar radiculopathy chronic Sedrick [email or web address] 1:05pm 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 September 27, 2024 1:05pm Osteoporosis September 07, 2006 chronic ry 2024 1:05pm Post-thrombotic syndrome chronic September 27, 2024 1:05pm Restless leg syndrome chronic Shai uary 2024 1:05pm 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 September 27 1:05pm History of DVT of lower extremity resolved September 27 1:05pm High cholesterol September 18, 2022 acute October 11, 2024 12:57pm History of blood clots February 09, 2023 acute October 11, 2024 12:57pm History of carpal tunnel surgery acute October 11 12:57pm History of dilatation and curettage acute October 11 12:57pm History of uterine suspension procedure acute October 12:57pm Hx of cataract surgery acute Fe bru2024 12:57pm Hx of foot surgery acute ua ry 2024 12:57pm Migraines September 07, 1955 acute uar y 2024 12:57pm Osteoarthritis July 13, 2007 acute [email or web address] 12:57pm Osteopenia acute October 11, 2024 12:57pm Rheumatoid arthritis February 05, 2019 chronic October 11, 2024 12:57pm Surgical wound dehiscence acute October 11, 2024 12:57pm GERD (gastroesophageal reflux disease) chronic October 11 12:57pm Hypertension chronic October 12:57pm Lumbar radiculopathy chronic 2024 12:57pm 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 October 11, 2024 12:57pm Osteoporosis September 07, 2006 chronic u [email or web address] 12:57pm Post-thrombotic syndrome chronic October 11, 2024 12:57pm Restless leg syndrome chronic Fe [email or web address] 12:57pm 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 October 11 12:57pm History of DVT of lower extremity resolved October 11 12:57pm Dyspnea on exertion chronic u [email or web address] 11:00am Hypertension chronic October 11:00am Osteoporosis September 07, 2006 chronic Febru mendel 2024 11:00am Restless leg syndrome chronic Feb ruary 2024 11:00am Venous insufficiency chronic [email or web address] 11:00am Shortness of breath acute November 11, 2024 9:47am Chest pain chronic November 11 9:47am Dyspnea on exertion chronic November 11, 2024 9:47am Hypertension chronic November 11 025 9:47am Osteoporosis September 07, 2006 chronic November 11, 2024 9:47am Angina pectoris chronic December 9:12am Hypertension chronic December 08 9:12am Rheumatoid arthritis February 05, 2019 chronic December 08, 2024 9:12am History of DVT of lower extremity resolved December 08, 2024 9:12am [facility] Work Phone: 1(651) 775-525001-12-2023 Evaluation note* Diagnosis Onset Date Resolution Status Admit Date High cholesterol September 18, 2022 acute September 27, 2024 1:05pm History of blood clots February 09, 2023 acute September 27, 2024 1:05pm History of carpal tunnel surgery acute September 27 1:05pm History of dilatation and curettage acute September 27 1:05pm History of uterine suspension procedure acute September 1:05pm Hx of cataract surgery acute 2024 1:05pm Hx of foot surgery acute 2024 1:05pm Migraines September 07, 1955 acute September 27, 2024 1:05pm Osteoarthritis July 13, 2007 acute Ja 2024 1:05pm Osteopenia acute September 27, 2024 1:05pm Rheumatoid arthritis February 05, 2019 chronic September 27, 2024 1:05pm Surgical wound dehiscence acute September 27, 2024 1:05pm GERD (gastroesophageal reflux disease) chronic September 27 1:05pm Hypertension chronic September 1:05pm Lumbar radiculopathy chronic Sedrick mendel 2024 1:05pm 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 September 27, 2024 1:05pm Osteoporosis September 07, 2006 chronic ry 2024 1:05pm Post-thrombotic syndrome chronic September 27, 2024 1:05pm Restless leg syndrome chronic Sep uary 2024 1:05pm 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 September 27 1:05pm History of DVT of lower extremity resolved September 27 1:05pm High cholesterol September 18, 2022 acute October 11, 2024 12:57pm History of blood clots February 09, 2023 acute October 11, 2024 12:57pm History of carpal tunnel surgery acute October 11 12:57pm History of dilatation and curettage acute October 11 12:57pm History of uterine suspension procedure acute October 12:57pm Hx of cataract surgery acute Fe bru2024 12:57pm Hx of foot surgery acute ua ry 2024 12:57pm Migraines September 07, 1954 acute uar y 2024 12:57pm Osteoarthritis July 13, 2007 acute Fe [email or web address] 12:57pm Osteopenia acute October 11, 2024 12:57pm Rheumatoid arthritis February 05, 2019 chronic October 11, 2024 12:57pm Surgical wound dehiscence acute October 11, 2024 12:57pm GERD (gastroesophageal reflux disease) chronic October 11 12:57pm Hypertension chronic October 12:57pm Lumbar radiculopathy chronic [email or web address] 12:57pm 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 October 11, 2024 12:57pm Osteoporosis September 07, 2006 chronic u [email or web address] 12:57pm Post-thrombotic syndrome chronic October 11, 2024 12:57pm Restless leg syndrome chronic Feb [email or web address] 12:57pm 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 October 11 12:57pm History of DVT of lower extremity resolved October 11 12:57pm Dyspnea on exertion chronic u [email or web address] 11:00am Hypertension chronic October 11:00am Osteoporosis September 07, 2006 chronic u mendel 2024 11:00am Restless leg syndrome chronic Feb ruary 2024 11:00am Venous insufficiency chronic [email or web address] 11:00am Shortness of breath acute November 11, 2024 9:47am Chest pain chronic November 11 9:47am Dyspnea on exertion chronic November 11, 2024 9:47am Hypertension chronic November 11 9:47am Osteoporosis September 07, 2006 chronic November 11, 2024 9:47am Angina pectoris chronic December 9:12am Hypertension chronic December 08 025 9:12am Rheumatoid arthritis February 05, 2019 chronic December 08, 2024 9:12am History of DVT of lower extremity resolved December 08, 2024 9:12am [facility] Work Phone: 1(791) 147-608401-10-2023 Miscellaneous Notes* Telephone Encounter - Analilia Marsh Ma - 09/16/2022 2:14 PM EST Pt accepted appt. Analilia Marsh Ma * Telephone Encounter - Analilia Marsh Ma - 09/16/2022 8:28 AM EST Pt notified via [employer] she needs to get additional labs done. Offered appt on 09/19/22 at 10:00 AM for pt. Pt needs 40 minutes, 2 spots being held for her. Awaiting her response on if that time works for her. Analilia Marsh Ma * Telephone Encounter - Analilia Marsh Ma - 09/15/2022 6:38 PM EST Pt notified via [employer]. Offered to assist with making appointment. Awaiting pt response on day andtime that works for her. Analilia Marsh Ma * Telephone Encounter - Julio C Washington MD - 09/15/2022 6:15 PM EST I have ordered the rest of the labs that she requested I would recommend an office visit to review results Julio C Washington MD * Telephone Encounter - Tena Driscoll Ma - 09/15/2022 9:00 AM EST See pt message. Currently has no follow up visit. Labs completed on 09/10/22. Tena Driscoll Ma documented in this encounter[facility] Miscellaneous Notes* Telephone Encounter - Gabrielle Lujan RN - 09/12/2022 1:55 PM EST Received call from [facility], Dr. Moiz Navarro office stating they received a request for records, but did not have any records for this pt. * Telephone Encounter - Ciarra Kennedy PA-C - 09/12/2022 12:03 PM EST Noted, thank you * Telephone Encounter - Neeta Rodríguez LPN - 09/12/2022 11:03 AM EST Received a call from Linh with [facility]. They received a request for records. Linh reports she faxed records on . Records are scanned under 03-04-22 External Documents - Miscellaneous Clinical Documents. Linh is going to fax the pt's last colon/EGD and bx done on 08/25/2014. If there is anything else you need please call Linh at [phone]. Please watch for records. Neeta Rodríguez LPN documented in this encounterSelect [facility]-04-2023 Nurse Note* Rachael Vasquez LPN - 09/10/2022 2:28 PM EST REVIEW OF SYSTEMS: General: The patient denies fatigue, denies weight loss, NOTES weight gain, denies feeling hot, anddenies feelings of cold. Eyes: The patient NOTES glaucoma, denies eye injury/surgery, wears glasses or contacts. Ear/Nose/Throat: The patient denies allergies, denies hayfever, denies ear infections, and NOTES bloody noses. Cardiovascular: The patient NOTES chest pain, denies heart disease, denies high blood pressure,denies cardiac stent, denies prior heart attack, denies irregular heart beat, denies high cholesterol, denies poor circulation, denies heart failure, notes cardiac issues, notes claudication, denies cold feet, denies peripheral arterial stent. Respiratory: The patient denies tuberculosis, denies pneumonia, NOTES frequent cough, denies pulmonary embolism, NOTES shortness of breath, and denies coughing up blood. Gastrointestinal: The patient notes difficulty swallowing, NOTES acid reflux, denies ulcers, deniesvomiting, denies jaundice/hepatitis, denies gallbladder problems, denies black or tarry stools, denies hemorrhoids, denies bleeding from rectum, denies diverticulitis, NOTES constipation, denies diarrhea, denies loss of stool control, and denies hernias. Kidney/Bladder: The patient denies kidney stones, denies urine infections, and denies bloody urine. Skin: The patient denies a history of skin cancer, denies bleeding/changing moles, and denies a history of skin rash. Neurologic: The patient denies a history of epilepsy/convulsions, NOTES headaches, denies head/spinal injuries, and denies stroke/TIA. Psychiatric: The patient denies psychiatric medications, denies depression, and denies voices, denies substance abuse. Endocrine: The patient denies thyroid disorders, denies diabetes, and denies hormonal problems. Hematologic: The patient denies a history of bruising, denies bleeding, and denies anemia, denies blood clots. Infections: The patient NOTES a history of measles and mumps, denies rheumatic fever, and denies sexually transmitted diseases. Musculoskeletal: The patient NOTES back pain/injury, NOTES back problems, NOTES sciatica, NOTES knee/foot trouble, NOTES arthritis, or denies gout. When was patient's last Mammogram screening? N/A Last Colonoscopy: 2013 Rachael Vasquez LPN documented in this encounterSelect [facility]-04-2023 History of Present illness Narrative* Ciarra Kennedy PA-C - 09/10/2022 2:27 PM EST HISTORY AND PHYSICAL Deric Merida 1945 REFERRING PHYSICIAN: Julio C Washington MD CHIEF COMPLAINT: Consult (colonoscopy) HPI: The patient is a 77 year old female referred for endoscopy. Deric notes no colon complaints. Patient denies any change in bowel habits, weight changes, blood in stools, black tarry stools or abdominal pain. Denies family history of colon issues. The patient NOTES a history of upper GI complaints. She notes intermittent discomfort in her chest for at least the last year. She states at times this is very intense pressure and occasionally has radiated into the jaw. Sometimes notes association of symptoms with eating, but not always. Patient had at some times concerned her for possible cardiac issue and she took aspirin, but did not call squad or go to ED. States pain resolves on its own in 1-2 hours. Patient has been evaluated by PCP for above complaints. She was referred for endoscopy. Has not hadrecent EKG or cardiac evaluation. Deric has undergone prior endoscopy. Last 08/22/14 with removal of adenomatous polyp. Patient denies problems with sedation in the past. No past medical history on file. PAST SURGICAL HISTORY Procedure Laterality Date COLONOSCOPY N/A 08/22/2014 D&C, DIAG AND/OR THERAPEUTIC N/A 03/1969 EGD N/A 08/22/2014 L'SCOPE CHOLECYSTECTOMY N/A 1961 Exploratory surgery R side pain PAST SURGICAL HISTORY OF N/A 01/10/2014 Uterine Suspension REMV CATARACT EXTRACAP,INSERT LENS Left 04/05/2014 REMV CATARACT EXTRACAP,INSERT LENS Right 03/22/2014 REVISE MEDIAN N/CARPAL TUNNEL SURG Left 03/12/2011 REVISE MEDIAN N/CARPAL TUNNEL SURG Right 04/07/2011 TOTAL ABDOM HYSTERECTOMY N/A 03/13/2015 Current Outpatient Medications Medication Sig ibuprofen-acetaminophen (ADVIL DUAL ACTION) 125-250 mg tab Take 250 mg by mouth twice daily as needed. rOPINIRole 2 mg 24 hr tablet Take 2 tablets by mouth three times daily. tiZANidine HCl (ZANAFLEX) 4 mg capsule Take 1 capsule by mouth as needed. UNQ-Tyqqnunwukxpk-Qzyw-Buffers (VANQUISH) 227-194-33 mg tab 2 as needed No current facility-administered medications for this visit. ALLERGIES: Baclofen, Cymbalta [Duloxetine], Diclofenac, Flexeril [Cyclobenzaprine], Lyrica [Pregabalin], and Temazepam PERSONAL HISTORY: Social History Tobacco Use Smoking status: Former Types: Cigarettes Quit date: 1980 Years since quittin.0 Smokeless tobacco: Never Substance Use Topics Alcohol use: Yes Comment: Rare occasion - wine Drug use: Never FAMILY HISTORY: FAMILY HISTORY Problem Relation Age of Onset Cancer Father Prostate cancer REVIEW OF SYMPTOMS: The review of systems data was entered by the nurse and reviewed by me Nursing Notes: Rachael Vasquez LPN 09/10/2022 2:35 PM Signed REVIEW OF SYSTEMS: General: The patient denies fatigue, denies weight loss, NOTES weight gain, denies feeling hot, anddenies feelings of cold. Eyes: The patient NOTES glaucoma, denies eye injury/surgery, wears glasses or contacts. Ear/Nose/Throat: The patient denies allergies, denies hayfever, denies ear infections, and NOTES bloody noses. Cardiovascular: The patient NOTES chest pain, denies heart disease, denies high blood pressure,denies cardiac stent, denies prior heart attack, denies irregular heart beat, denies high cholesterol, denies poor circulation, denies heart failure, notes cardiac issues, notes claudication, denies cold feet, denies peripheral arterial stent. Respiratory: The patient denies tuberculosis, denies pneumonia, NOTES frequent cough, denies pulmonary embolism, NOTES shortness of breath, and denies coughing up blood. Gastrointestinal: The patient notes difficulty swallowing, NOTES acid reflux, denies ulcers, deniesvomiting, denies jaundice/hepatitis, denies gallbladder problems, denies black or tarry stools, denies hemorrhoids, denies bleeding from rectum, denies diverticulitis, NOTES constipation, denies diarrhea, denies loss of stool control, and denies hernias. Kidney/Bladder: The patient denies kidney stones, denies urine infections, and denies bloody urine. Skin: The patient denies a history of skin cancer, denies bleeding/changing moles, and denies a history of skin rash. Neurologic: The patient denies a history of epilepsy/convulsions, NOTES headaches, denies head/spinal injuries, and denies stroke/TIA. Psychiatric: The patient denies psychiatric medications, denies depression, and denies voices, denies substance abuse. Endocrine: The patient denies thyroid disorders, denies diabetes, and denies hormonal problems. Hematologic: The patient denies a history of bruising, denies bleeding, and denies anemia, denies blood clots. Infections: The patient NOTES a history of measles and mumps, denies rheumatic fever, and denies sexually transmitted diseases. Musculoskeletal: The patient NOTES back pain/injury, NOTES back problems, NOTES sciatica, NOTES knee/foot trouble, NOTES arthritis, or denies gout. When was patient's last Mammogram screening? N/A Last Colonoscopy: 2013 Rachael Vasquez LPN I have confirmed and edited as necessary, the PFSH and ROS obtained by others. Ciarra Kennedy PA-C PHYSICAL EXAMINATION: General: The patient is 77 year old female, well nourished, well hydrated in no acute distress. Thepatient is oriented to time, place, and person. VITALS: Blood pressure 136/84, pulse 106, temperature 37.2 C (98.9 F), height 162.6 cm (5' 4), weight 81.9 kg (180 lb 9.6 oz), SpO2 95 %. Body mass index is 31 kg/m . HEENT: Normal cephalic, ataumatic, pupils are equally round, sclera are anicteric, mucous membranesare moist, oropharynx is clear. Neck has no masses, asymmetry or lymphadenopathy. Respiratory: Clear to auscultation and percussion. Normal respiratory excursion and pattern. Cardiac: Examination is regular rate and rhythm. Normal S1/S2 Abdominal exam: Soft, nontender, with no palpable masses. No hepatosplenomegaly. No palpable hernias. Extremities: no clubbing, cyanosis or edema. No adenopathy. LABORATORY VALUES: As Noted RADIOLOGIC STUDIES: As Noted Assessment IMPRESSION: encounter for high-risk screening colonoscopy due to personal history of colon polyps. History of chest pain related to eating PLAN: I have reviewed my findings with the surgeon. I have recommended that patient first be evaluated by Cardiology to r/o cardiac etiology of her chest pain symptoms. Reviewed red flag signs/symptoms for which patient should seek immediate medical attention After patient cleared by cardiology, will plan for upper and lower endoscopy. We discussed the risks and benefits of the planned endoscopy. I have informed the patient that complications can occur including failure to complete the endoscopy and perforation. The patient had the opportunity to ask questions concerning the planned endoscopy. My staff has also explained the procedure to the patient in understandable terms and has given the patient printed material concerning the procedure. The patient freely consents to surgery. The patient was offered a surgery/procedure at a [facility]. I have counseled the patient regarding the risk of exposure to and/or potential harm posed by the COVID-19 virus with having a surgery/procedure at this time versus the risk of delaying the surgery/procedure. It is not possible to know either the risk of delaying the surgery or procedure or chance of getting an infection with perfect accuracy, but a joint decision was made between the patient and myself to proceed at this time with endoscopy. I plan to use Golytely bowel preparation We will plan for Monitored Anesthetic Care. Diagnoses: (Z87.898) History of chest pain (primary encounter diagnosis) (Z12.11) Encounter for screening colonoscopy (R19.8) Symptoms of gastroesophageal reflux (Z86.010) History of colonic polyps Consultation requested by Dr. Washington for an opinion regarding EGD and colonoscopy. My final recommendations will be communicated back to the requesting physician by way of shared Medical record or letter to requesting physician via US mail. Ciarra Kennedy PA-C documented in this encounterSelect [facility]-04-2023 History of Present illness Narrative* Boo Lanier RT(R) - 09/10/2022 1:00 PM EST Radiology Service Progress Note PATIENT NAME: Deric Merida DATE OF SERVICE: September 10, 2022 TIME: 1:09 PM PATIENT IDENTITY VERIFICATION COMPLETED USING TWO (2) IDENTIFIERS: Name and Date of confirmedby patient verbally. FALL SCREENING: Has the patient had 2 falls in the last year or 1 fall with injury or currently using an Ambulatory Assistive Device (Walker, Cane, Wheelchair, Crutches, etc.)? No PATIENT GENDER DATA: Female. status: : No status: NO. PATIENT RELEVANT IMPLANT DATA REVIEWED: Not Applicable RADIOLOGY DEPARTMENT: Bone Density PERIPHERAL IV DATA: Not applicable SIGNED BY: RT Bradford(R) September 10, 2022 1:09 PM documented in this encounterSelect [facility]12-20-2022 Miscellaneous Notes* Telephone Encounter - Analilia Marsh Ma - 08/26/2022 10:28 AM EST Reports printed for provider to review. Analilia Marsh Ma documented in this encounterSelect [facility]12-19-2022 Instructions* Patient Instructions* Analilia Marsh Ma - 08/25/2022 3:30 PM EST BONE MINERAL DENSITY PATIENT INSTRUCTIONS Bone mineral density testing measures the amount of calcium in certain parts of your bones. This information determines how strong your bones are. The test is used to detect osteoporosis, a disease in which the bone's mineral content and density are low, increasing a person's risk of fractures. Thelumbar spine (lower back) and the hip are the skeletal sites usually examined. For the test, remember that: 1. You cannot take this test if you are . 2. Eat a normal diet on the day of the test. 3. Take your medications as you normally would. 4. DO NOT take calcium supplements (such as Tums) for 24 hours before the test. 5. On the day of the test, leave valuables (jewelry or credit cards) at home. 6. The test should be performed prior to oral, rectal or IV contrast studies, or at least 7 days after any of these studies. For the test, you may be asked to wear a hospital gown. You will lie on your back, on a padded table, in a comfortable position. Generally, you can resume your usual activities immediately. documented in this encounterSelect Medical [facility]12-19-2022 History of Present illness Narrative* Julio C Washington MD - 08/25/2022 3:20 PM EST Chief Complaint Patient presents with: 6 Month Exam HPI Deric Merida is a 77 year old female who presents here today for a 6 month follow up. Pt here today for a 6 month follow up. Established at previous OV and was seen in May due to a fall by Camila Arevalo CNP. Moved from [place] in early 2021. Declined flu vaccine and COVID vaccine today. She wants to stick with Moderna for the covid vaccines. Last Medicare wellness 10/26/2019. Last Colonoscopy done 08/22/[address] Means in [place], [place], recommended repeat 5 years. Polyps removed; one adenomatous in left colon. Weight: Concerned about her weight and inability to self manage it. She stays active walking aroundher [employer] and doing house work. Pt c/o chest pains and eating difficulty. Having periodic chest pains for years, no particular pattern, starts randomly, developing jaw numbness. Has typically just been waiting them out. The painsdevelops with meal time eating. It doesn't prevent her from eating, no trouble swallowing but has pain across chest area and some regurgitation after, especially if she leans forward. The chest pain is becoming more frequent and persistent. Will resolve within an hour or so. She gets nervous and ifshe thinks this is it she will take and Aspirin or 2 for the pain. She is not interested in taking any medications for reflux until she has had scope to know exactly what she is treating. Hands: Fingers curling with use of hands for household tasks, fingers get painful and difficult to straighten when curls to perform task. Recently the right hand middle finger has been worse. Exampleis constant soreness with pain experienced trying to straighten the right hand middle finger to floss teeth. Can work through the pain. Finger/hand soreness wakes her up at night. Difficulty breathing through her nose at times, feels blocked. Has to breath through her mouth which after hours/days and under strenuous activity causes anxiety. She saw ENT 06/11/2021, was told she had a deviated septum. She had used flonase in the past and was told by ENT to stop taking it due toit causing nose bleeds. She was given Azelastine nasal spray in stead. She has declined ENT consultat this time, wants to get some of her other concerns taken care of first.C/o chronic cough for years that she feels is getting worse and causing sore throat sensation. Her cough is worse in the morning, can occur during the day, never seems to happen when she is in the doctors office, only when she is at home. Pain: Chronic pain dx with RA, Fibromyalgia and Sciatic pain. Pt has been on previous medications of Lyrica, Gabapentin and Flexeril, will no longer use these. Pt on current regimen of Requip 2 mg 2 tab po TID and Dual Action Advil. On medication hx pt has Rx of Tizanidine. Sciatic pain within the past 2 months, consistently radiating from right buttock down leg, especially with exertion, making it difficult to sit, sometimes causing leg to give way. Having mobility issues, has been on going for years, walking getting worse. Leg stiffness, foot numbness which has moved into the legs, chest/upper body tightens up when trying to walk. She states that she is used to walking at a fast pace and isn't able to do that. She has done PT and Aqua therapy, saw chiropractor but all those things didn't help or made her feel worse. She did have a fall in March. She states she does climb up and down ladders even through she has poor balance. RLS: Takes Requip 2 mg 2 tab po tid which is helping her. Osteoporosis: Has previously been on Risedronate 150 mg tablet once monthly, but this was d/c due to being on for 10 years. Last Dexa Scan over 2 years ago. She stopped taking the Osteo meds March 2022, now concerned about bone condition since being off the medication. Migraines: Chronic; uses Fiorinal with Codeine prn. Past medical history, appointments, medications, allergies reviewed. Previous Medical Histor No past medical history on file. Previous Surgical History PAST SURGICAL HISTORY Procedure Laterality Date COLONOSCOPY N/A 08/22/2014 D&C, DIAG AND/OR THERAPEUTIC N/A 03/1969 EGD N/A 08/22/2014 L'SCOPE CHOLECYSTECTOMY N/A 1961 Exploratory surgery R side pain PAST SURGICAL HISTORY OF N/A 01/10/2014 Uterine Suspension REMV CATARACT EXTRACAP,INSERT LENS Left 04/05/2014 REMV CATARACT EXTRACAP,INSERT LENS Right 03/22/2014 REVISE MEDIAN N/CARPAL TUNNEL SURG Left 03/12/2011 REVISE MEDIAN N/CARPAL TUNNEL SURG Right 04/07/2011 TOTAL ABDOM HYSTERECTOMY N/A 03/13/2015 Family History FAMILY HISTORY Problem Relation Age of Onset Cancer Father Prostate cancer Patient Allergies ALLERGIES Allergen Reactions Baclofen Other: See Comments Nausea and headache Cymbalta [Duloxetin* Myalgia Lethargic, depressed and pain worse. Weight gain Diclofenac Other: See Comments Hiccups, strange dreams, GI issues and feeling faint Flexeril [Cyclobenz* Other: See Comments Sleep issues and headache Lyrica [Pregabalin] Other: See Comments Unable to sleep. Gabapentin no effect, doesn't want to take Temazepam Other: See Comments Hiccups, headache, nausea, dizzy, lethargic, disoriented Current Medications Current Outpatient Medications on File Prior to Visit Medication Sig rOPINIRole 2 mg 24 hr tablet Take 2 tablets by mouth three times daily. tiZANidine HCl (ZANAFLEX) 4 mg capsule Take 1 capsule by mouth as needed. fluticasone (FLONASE) 50 mcg/actuation nasal spray Uses prn aejggrxchw-khicbxk-twryjwkp-codeine (FIORINAL WITH CODEINE) capsule 1 caps prn NHU-Dndmhkecjltku-Mfmx-Buffers (VANQUISH) 227-194-33 mg tab 2 as needed Docusate Sodium 100 mg tab q 24 HR. (Patient not taking: Reported on 05/19/2022) No current facility-administered medications on file prior to visit. Social History Social History Tobacco Use Smoking status: Former Types: Cigarettes Quit date: 1980 Years since quittin.9 Smokeless tobacco: Never Substance Use Topics Alcohol use: Yes Comment: Rare occasion - wine Drug use: Never EXAM: BP 126/70 Pulse 68 Resp 16 Wt 81.1 kg (178 lb 11.2 oz) LMP (LMP Unknown) BMI 30.67 kg/m General Appearance: Well appearing, alert, in no acute distress, well-hydrated, well nourished. andOverweight. Back: muscle tenderness to the upper back/shoulder muscles Lungs: Lungs clear to auscultation. No wheezing, rhonchi, rales.. Heart: RRR without murmur, gallop, or rubs. No ectopy. Hands: some arthritis changes of both hands Extremities: no pain on palpation to both legs, no swelling of knees or legs Health Maintenance List HEPATITIS C SCREENING Never done DTAP,TDAP,TD(1 - Tdap) Never done DIABETES SCREEN Never done SHINGRIX VACCINE(1 of 2) Never done BONE DENSITY Never done PNEUMOCOCCAL: 65+(1 - PCV) Never done COVID-19 VACCINE(4 - Booster for Moderna series) due on 07/05/2021 DEPRESSION ASSESSMENT Never done INFLUENZA(1) Never done ADVANCE DIRECTIVE DISCUSSION Completed Data reviewed None ASSESSMENT/PLAN: 1. Fibromyalgia - ICD9: 729.1, ICD10: M79.7 (primary diagnosis) Stable 2. Encounter for screening for osteoporosis - ICD9: V82.81, ICD10: Z13.820 BMD ordered 3. Encounter for screening colonoscopy - ICD9: V76.51, ICD10: Z12.11 Consult General Surgery 4. Symptoms of gastroesophageal reflux - ICD9: 787.99, ICD10: R19.8 Consult General Surgery Recommend trying to take TUMS when sx start and see if that helps 5. Rheumatoid arthritis, involving unspecified site, unspecified whether rheumatoid factor present (HCC) - ICD9: 714.0, ICD10: M06.9 stable 6. Osteoporosis, unspecified osteoporosis type, unspecified pathological fracture presence - ICD9: 733.00, ICD10: M81.0 BMD test ordered 7. RLS (restless legs syndrome) - ICD9: 333.94, ICD10: G25.81 Controlled Continue current medications. Follow up as needed. Will notify of lab results. I agree with the Chief Complaint, ROS, and Past Histories independently gathered by the clinical media production support manager and the remaining scribed note accurately describes my personal service to the patient. temperature I spent a total of 50 minutes on the date of the service which included preparing to see the patient, [id number] patient care, completing clinical documentation, obtaining and/or reviewing separately obtained history, performing a medically appropriate examination, counseling and educating the pat ient/family/caregiver, ordering medications, tests, or procedures, and independently interpreting results (not separately reported). Julio C Washington MD The documentation for this note was completed by Analilia Marsh Ma acting as scribe for Julio C Washington MD. August 25, 2022 3:17 PM. Analilia Marsh Ma documented in this encounterSelect [facility] History of Present illness Narrative* Camila Arevalo, SUE.FIRE EXTINGUISHER INSTALLER - 05/19/2022 1:40 PM EDT This is a 77 year old female who presents today with: Patient presents with: Acute Visit: right side HISTORY OF PRESENT ILLNESS: Deric Merida is a 77 year old female. Patient presents with: Acute Visit: right side Here in the office after a fall on concrete. Fell in April while walking outside. Tripped over herfeet. Landed on right side. Denies hitting head. Having ongoing pain on right side/flank. Muscles are very tender. Will hurt with a cough, sneeze, and deep breaths. Not currently taking anything for pain. PAST MEDICAL HISTORY: No past medical history on file. PAST SURGICAL HISTORY Procedure Laterality Date COLONOSCOPY N/A 08/22/2014 D&C, DIAG AND/OR THERAPEUTIC N/A 03/1969 EGD N/A 08/22/2014 L'SCOPE CHOLECYSTECTOMY N/A 1961 Exploratory surgery R side pain PAST SURGICAL HISTORY OF N/A 01/10/2014 Uterine Suspension REMV CATARACT EXTRACAP,INSERT LENS Left 04/05/2014 REMV CATARACT EXTRACAP,INSERT LENS Right 03/22/2014 REVISE MEDIAN N/CARPAL TUNNEL SURG Left 03/12/2011 REVISE MEDIAN N/CARPAL TUNNEL SURG Right 04/07/2011 TOTAL ABDOM HYSTERECTOMY N/A 03/13/2015 ALLERGIES Baclofen, Cymbalta [Duloxetine], Diclofenac, Flexeril [Cyclobenzaprine], Lyrica [Pregabalin], and Temazepam MEDICATIONS Current Outpatient Medications Medication Sig rOPINIRole 2 mg 24 hr tablet Take 2 tablets by mouth three times daily. tiZANidine HCl (ZANAFLEX) 4 mg capsule Take 1 capsule by mouth as needed. fluticasone (FLONASE) 50 mcg/actuation nasal spray Uses prn awbwswmbhc-tjqbxjn-tnmlxnrg-codeine (FIORINAL WITH CODEINE) capsule 1 caps prn EAA-Leuhceaqcxygf-Svzr-Buffers (VANQUISH) 227-194-33 mg tab 2 as needed Docusate Sodium 100 mg tab q 24 HR. No current facility-administered medications for this visit. FAMILY HISTORY Problem Relation Age of Onset Cancer Father Prostate cancer Social History Tobacco Use Smoking status: Former Types: Cigarettes Quit date: 1979 Years since quittin.7 Smokeless tobacco: Never Substance Use Topics Alcohol use: Yes Comment: Rare occasion - wine Drug use: Never REVIEW OF SYSTEMS GENERAL: No weight loss, malaise or fevers/chills HEENT: Negative for frequent or significant headaches, No changes in hearing or vision. NECK: Negative for lumps, goiter, pain and significant neck swelling RESPIRATORY: Negative for cough, hemoptysis, wheezing, dyspnea or shortness of breath CARDIOVASCULAR: Negative for chest pain, leg swelling, orthopnea, or palpitations GI: No nausea, vomiting, or diarrhea/constipation. No hematochezia/melena. No heartburn or reflux symptoms. : No history of dysuria, frequency or incontinence MUSCULOSKELETAL: Fall/right side/flank pain SKIN: Negative for lesions, rash, and itching ENDOCRINE: Negative for cold or heat intolerance, polyuria, polydipsia and goiter NEURO: No history of headaches, syncope, paralysis, seizures or tremors MOOD: Negative for depression, anxiety, or suicidal ideation. EXAM: BP 150/80 Pulse 81 Resp 16 Wt 82.1 kg (181 lb) SpO2 96% BMI 31.07 kg/m PHYSICAL EXAM: General Appearance: Well appearing, alert, in no acute distress, well-hydrated, well nourished. Skin: Skin color, texture, turgor normal, no suspicious rashes or lesions. Head: Normocephalic, no masses, lesions, tenderness or abnormalities. Eyes: Anicteric sclera. Extraocular movements are intact. Lungs: Lungs clear to auscultation. No wheezing, rhonchi, rales. Heart: RRR without murmur, gallop, or rubs. No ectopy. Extremities: No deformities, edema, skin discoloration, clubbing or cyanosis. Good capillary refill. Musculoskeletal: Tenderness noted over upper back that radiates over into right side, no swelling or color change noted full range of motion. Peripheral Pulses: Normal, Capillary refill <2secs, strong peripheral pulses, Pulses palpable. Neurologic: Gait normal. Reflexes normal and symmetric. Sensation grossly intact. ASSESSMENT/PLAN: 1. Fall, initial encounter - ICD9: E888.9, ICD10: W19.XXXA (primary diagnosis) - Patient has RX for prednisone 10 mg and Zanaflex at home. - Symptoms seem consistent with a muscle strain. - Start 9 day prednisone taper, instructions provided. - May use Zanaflex as needed. - Recommend chest xray if symptoms do not improve. - XR CHEST 2V FRONTAL/LAT 2. Muscle strain - ICD9: 848.9, ICD10: T14.8XXA - Same plan as #1. 3. SOB (shortness of breath) - ICD9: 786.05, ICD10: R06.02 - Same plan as #1. Follow up as needed or sooner if symptoms do not improve. Discussed treatment plan and patient voices understanding. Patient's questions answered appropriately. Medications and potential side effects were discussed and patient voices understanding. Camila Arevalo APRN.CNP This note was partially generated using [employer] voice recognition system. Note was reviewed for accuracy. There may be minor misspellings or grammar miscues with [employer] voice recognition. documented in this encounterSelect [facility]09-12-2022 Instructions* Patient Instructions* Camila Arevalo APRN.CNP - 05/19/2022 1:38 PM EDT 1.) May use your prednisone at home, Take 3 tablets (30 mg) for 3 days, then 2 tablets (20 mg) for 3 days, and then 1 tablet (10 mg) for 3 days). May use ice and heat the area. 2.) If symptoms do not improve I would recommend a chest xray. 3.) May use your Zanaflex as needed for muscle tension. 4.) Follow up as needed. documented in this encounterSelect [facility]07-13-2022 History of Present illness Narrative* Shreyas Sousa - 03/19/2022 10:23 AM EDT Consultation requested by Dr. Washington for an opinion regarding ingrowing toenail. My final recommendations will be communicated back to the requesting physician by way of shared Medical record or letter to requesting physician via US mail. Initial Podiatric Office Visit: Chief Complaint: This 77 year old female who presents with chief complaint:painful ingrowing toenail HPI Patient presents to clinic for evaluation of b/l feet. She complains of ingrowing toenail of b/l hallux. queta has had ingrowing toenails in the past and had a procedure on the right hallux. She has yet to have any procedure on the left. She is here because the nails are causing her pain. She would like to establish care to have the nails debrided. PAIN EVALUATION 03/19/2022 0959 Pain Level: 4 Pain Location: Toe Description: Sharp Duration Amount of Time: 2 Duration Units: Years Frequency: Intermittent Intervention/Comfort measure: Reposition;Relaxation Comments: started medicare foot care started in 2019 in [place] No results found for: HBA1C PCP: Julio C Washington MD No past medical history on file. Current Outpatient Medications Medication Sig rOPINIRole 2 mg 24 hr tablet Take 2 tablets by mouth three times daily. tiZANidine HCl (ZANAFLEX) 4 mg capsule Take 1 capsule by mouth as needed. fluticasone (FLONASE) 50 mcg/actuation nasal spray Uses prn axsxvwztkf-eagalmo-benwakbg-codeine (FIORINAL WITH CODEINE) capsule 1 caps prn OGR-Lxopoaltdcfns-Gtcp-Buffers (VANQUISH) 227-194-33 mg tab 2 as needed Docusate Sodium 100 mg tab q 24 HR. No current facility-administered medications for this visit. ALLERGIES Allergen Reactions Baclofen Other: See Comments Nausea and headache Cymbalta [Duloxetin* Myalgia Lethargic, depressed and pain worse. Weight gain Diclofenac Other: See Comments Hiccups, strange dreams, GI issues and feeling faint Flexeril [Cyclobenz* Other: See Comments Sleep issues and headache Lyrica [Pregabalin] Other: See Comments Unable to sleep. Gabapentin no effect, doesn't want to take Temazepam Other: See Comments Hiccups, headache, nausea, dizzy, lethargic, disoriented PAST SURGICAL HISTORY Procedure Laterality Date COLONOSCOPY N/A 08/22/2014 D&C, DIAG AND/OR THERAPEUTIC N/A 03/1969 EGD N/A 08/22/2014 L'SCOPE CHOLECYSTECTOMY N/A 1961 Exploratory surgery R side pain PAST SURGICAL HISTORY OF N/A 01/10/2014 Uterine Suspension REMV CATARACT EXTRACAP,INSERT LENS Left 04/05/2014 REMV CATARACT EXTRACAP,INSERT LENS Right 03/22/2014 REVISE MEDIAN N/CARPAL TUNNEL SURG Left 03/12/2011 REVISE MEDIAN N/CARPAL TUNNEL SURG Right 04/07/2011 TOTAL ABDOM HYSTERECTOMY N/A 03/13/2015 FAMILY HISTORY Problem Relation Age of Onset Cancer Father Prostate cancer Social History Tobacco Use Smoking status: Former Smoker Quit date: 1980 Years since quittin.5 Smokeless tobacco: Never Used Substance Use Topics Alcohol use: Yes Comment: Rare occasion - wine Drug use: Never REVIEW OF SYSTEMS GENERAL: Negative for Malaise, significant weight loss, fever RESPIRATORY: Negative for cough, wheezing and shortness of breath CARDIOVASCULAR: Negative for chest pain, leg swelling and palpitations GI: Negative for abdominal discomfort, blood in stools or black stools and change in bowel habits : Negative for dysuria, frequency and incontinence MUSCULOSKELETAL: Negative for joint pain or swelling, back pain, and muscle pain. SKIN: Negative for lesions, rash, and itching. HEMATOLOGY/LYMPHOLOGY Negative for prolonged bleeding, bruising easily, and swollen nodes. ENDOCRINE: Negative for cold or heat intolerance, polyuria, polydipsia and goiter. NEURO: negative Physical Exam: Constitutional: Pt is a well developed 77 year old female who is alert, oriented and cooperative Eyes: Following during examination. No redness or drainage. Respiratory: RR normal and nonlabored. Even breathing. No evidence of distress or shortness of breath. Psychology: Patient is engaged during conversation. Normal affect and mood. Does not appear depressed or anxious during encounter. Vascular: Dorsalis pedis and posterior tibial pulses palpable as b/l Capillary Fill time < 5 seconds to digits 1-5 b/l Skin temperature warm to warm proximal to distal b/l Hair growth present to digits Neurological: intact light touch/epicritic sensation b/l intact protective sensation no significant neurological deficits Dermatological: Nails 1-5 b/l appear thick, discolored, painful. Webspaces clean and dry 1-4 b/l. Skin appears wellhydrated and supple. good color, texture, turgor. No open lesions present. Callus is present to b/lhallux. Musculoskeletal/Orthopaedic: Patient has pain to palpation of left hallux toenail Foot type is pronated structurally AJ ROM is full with knee extended and flexed 1st MPJ is decreased when loaded and no pain or crepitus are noted with ROM. Moderate bunion is present to b/l feet MTJ, STJ are full and free of pain and crepitus. +5/5 muscle strength dorsiflexion, plantarflexion, inversion, eversion b/l Radiographs: n/a ASSESSMENT: (B35.1) Onychomycosis (primary encounter diagnosis) (L60.0) Ingrown toenail (M79.675) Pain in toe of left foot (M79.674) Pain in toe of right foot PLAN: 1. History and physical examination performed. 2. Discussed dystrophic and ingrowing toenail. We discussed the possible etiologies of discolored, dystrophic, and thickened nails including fungus, yeast, mold as well as in some instances, prior trauma, or mechanical causes such as repetitive microtrauma in shoe gear. We discussed topical medication for discolored toenails which has very low success but no major side effects. We discussed oral medication. Patient will need hepatic testing prior to use. Patient informed of risks associated with Lamisil. We discussed removal of toenails. Patient would like to proceed with debridement. Toenails 1-5 b/l was debrided. 3. Callus present and caused by bunion. Recommend wider shoes. Callus was reduced with dremmel. In order to perform a complete physical exam, limited shaving of callus area was performed. This incidental service is integral to the evaluation and management visit in order to appropriately manage andtreat the patient (for their complaint or for this visit). Shreyas Sousa DPM Podiatry [address] [facility] [address] Dept: [phone] Dept * Maddie Casillas LPN - 03/19/2022 9:57 AM EDT AMB ROOMING INTAKE FLOWSHEET DATA Risk Screening Do you have concerns about personal safety or safety in the home?: No Pain Pain Level: 4 Pain Location: Toe Description: Sharp Duration Amount of Time: 2 Duration Units: Years Frequency: Intermittent Intervention/Comfort measure: Reposition, Relaxation Comments: started medicare foot care started in 2019 in [place] Patient presents with: Left Foot - Ingrown Toenail, New, Pain Right Foot - Ingrown Toenail, New, Pain Maddie Casillas LPN documented in this encounterSelect [facility]-15-[facility]22 History of Present illness Narrative* Julio C Washington MD - 02/19/2022 12:00 PM EDT Chief Complaint Patient presents with: Establish Care HPI Deric Merida is a 76 year old female who presents here today to Establish Care. Pt new to this office, requested by her relative Ligia Delaney to become established. Recently moved to this area. Previously seen by Dr. Zoe Figueroa in [place], [place]. Pt moved to this area in . Previously employed by [employer], [employer] in [place]. Retired. Was but has no children. Pt notes that she's moved all over, favorite place was [place]. GI/Uro - Denies any stomach, bowel or urinary issues. Takes Stool Softener daily. Had Colonoscopy in 08/2014. Notes she did have some polyps removed, was to f/u before she left but did not. Cardio - No previous heart issues. Notes echo in the past back in 2014 before surgery. Denies any chest pain, sob or dizziness. Diet/Exercise - Tries to watch diet the best she can, but she's an emotional eater. Exercises as best as she can, but has difficulty walking. Knows that she is overweight, feels this occurred after having surgery in 2014. Pain/RA - Dx with RA and muscle pain. Pt notes that she's been told that she has RA and fibromyalgia. Has been on regimen of Lyrica, Gabapentin and Flexeril but will no longer use these. Uses Advil dual action and Ropinorole 2 mg 2 tabs po TID. Pt states her joints do not hurt it's just muscle and joints. Notes fingers are getting stiffer, having difficulty opening up first thing in the morning, b ut is okay at present time. Notes numbness in b/l feet, which vascular work up has been done showing nothing. Pt refuses a lot of medications, doesn't like them. Sciatic - Notes hx of right sided sciatica. Has taken Flexeril in the past but had side effects from the medication. She now takes Tizanidine 4 mg, takes 2 mg prn. Reports back issues with MRI's showing compression in her back. Migraine - Hx of Migraines, uses Fiorinal with Codeine capsule prn. Podiatry - Reports that she has ingrown toenail. Has been referred to Podiatry in the past for routine foot care/nails. Would like to set this up as well. Has numb feet. Osteoporosis - On Risedronate 150 mg once monthly for Osteoporosis. Asks how long she needs to continue this, has been on this since 2008. Notes she has deviated septum, has been told that she could have surgery, but pt has not done anything for this. Admits that her balance is off, has never done any type of exercises or therapy for this. Wonders if the high dosage of Ropinorole and being on chronically, causes this due to a sensation she has in her brain. HM - Has Adv Dir/living Will but working on this. No longer getting Mammograms, they have been stable in the past. Did complete Bone Density due to osteoporosis and back issues. Declines Depression, complete questionnaire. Past medical history, appointments, medications, allergies reviewed. Previous Medical History No past medical history on file. Previous Surgical History No past surgical history on file. Family History No family history on file. Patient Allergies ALLERGIES Not on File Current Medications No current outpatient medications on file prior to visit. No current facility-administered medications on file prior to visit. Social History Social History Tobacco Use Smoking status: Not on file Smokeless tobacco: Not on file Substance Use Topics Alcohol use: Not on file Drug use: Not on file EXAM: BP 130/84 (BP Site: Left Arm, BP Position: Sitting, BP Cuff Size: Regular Adult) Pulse 84 Resp 16 Ht 162.6 cm (5' 4) Wt 81.7 kg (180 lb 3.2 oz) BMI 30.93 kg/m General Appearance: Well appearing, alert, in no acute distress, well-hydrated, well nourished.. Neck: Supple, no adenopathy; thyroid symmetric, normal size, no bruits. Lungs: Lungs clear to auscultation. No wheezing, rhonchi, rales.. Heart: RRR without murmur, gallop, or rubs. No ectopy. Health Maintenance List COVID-19 VACCINE(1) Never done DEPRESSION SCREENING Never done HEPATITIS C SCREENING Never done DTAP,TDAP,TD(1 - Tdap) Never done DIABETES SCREEN Never done SHINGRIX VACCINE(1 of 2) Never done BONE DENSITY Never done PNEUMOCOCCAL: 65+(1 - PCV) Never done ADVANCE DIRECTIVE DISCUSSION Never done INFLUENZA(Season Ended) due on 05/08/2022 Data reviewed Brought most recent external labs into office, reviewed ASSESSMENT/PLAN: 1. Encounter to establish care - ICD9: V65.8, ICD10: Z76.89 (primary diagnosis) - Established. 2. RLS (restless legs syndrome) - ICD9: 333.94, ICD10: G25.81 - Continue current medication regimen. - ROPINIROLE ER 2 MG TABLET,EXTENDED RELEASE 24 HR 3. Myalgia - ICD9: 729.1, ICD10: M79.10 - Continue current medication regimen. - ROPINIROLE ER 2 MG TABLET,EXTENDED RELEASE 24 HR 4. Nerve pain - ICD9: 729.2, ICD10: M79.2 - Continue current medication regimen. - ROPINIROLE ER 2 MG TABLET,EXTENDED RELEASE 24 HR 5. Rheumatoid arthritis, involving unspecified site, unspecified whether rheumatoid factor present (HCC) - ICD9: 714.0, ICD10: M06.9 - Monitor - Continue current medication regimen prn 6. Chronic right-sided low back pain with right-sided sciatica - ICD9: 724.2, 724.3, 338.29, ICD10:M54.41, G89.29 Chronic low back pain, sciatica - Take medication prn 7. Osteoporosis, unspecified osteoporosis type, unspecified pathological fracture presence - ICD9: 733.00, ICD10: M81.0 - Stop monthly medication; has been on more than 10 years - No longer needing to complete Bone Density 8. Migraine without aura, intractable, without status migrainosus - ICD9: 346.11, ICD10: G43.019 - PRN medication 9. Ingrown toenail - ICD9: 703.0, ICD10: L60.0 - Refer to Podiatry - Discuss toenail care - routine - CONSULT TO PODIATRY 6 mo f/u I agree with the Chief Complaint, ROS, and Past Histories independently gathered by the clinical media production support manager and the remaining scribed note accurately describes my personal service to the patient. Medical Decision Making: Problems: Moderate: 2+ stable chronic illnesses Data: Unique test result(s) reviewed: 3+ Risk: Moderate: Drug management Medical Decision Making Level: 4 - Moderate Julio C Washington MD The documentation for this note was completed by Tena Driscoll Ma acting as scribe for Julio C Washington MD. February 19, 2022 12:46 PM. Tena Driscoll Ma [facility]* Diagnosis Onset Date Resolution Status Right leg DVT acute Diminished pulses in lower extremity noneactive Colon cancer screening acute Osteoporosis September 07, 2006 acute Nonscarring hair loss chroni c Odynophagia chronic Restless leg syndrome [facility] Work Phone: [phone] 713-472001-01-2007 Evaluation note* Diagnosis Onset Date Resolution Status Colon cancer screening acute Osteoporosis September 07, 2006 acute Nonscarring hair loss chroni c Odynophagia chronic Restless leg syndrome [facility] Work Phone: [phone] 507-162601-01-2007 Evaluation note* Diagnosis Onset Date Resolution Status Colon cancer screening acute Nonscarring hair loss chroni c Odynophagia chronic Osteoporosis September 07, 2006 chronic Restless leg syndrome chroni c GERD (gastroesophageal reflux disease) acute Hypertension chronic Nonscarring hair loss chroni c Odynophagia chronic Osteoporosis September 07, 2006 chronic Restless leg syndrome [facility] Work Phone: Evaluation note* Diagnosis RLS (restless legs syndrome)- Primary Restless legs syndrome (RLS) Encounter to establish care Other reasons for seeking consultation Myalgia Mylagia and myositis, unspecified Nerve pain Neuralgia, neuritis, and radiculitis, unspecified Rheumatoid arthritis, involving unspecified site, unspecified whether rheumatoid factor present (HCC) Chronic right-sided low back pain with right-sided sciatica Osteoporosis, unspecified osteoporosis type, unspecified pathological fracture presence Migraine without aura, intractable, without status migrainosus Ingrown toenail Ingrowing nail [facility] Diagnosis Onychomycosis- Primary Dermatophytosis of nail Ingrown toenail Ingrowing nail Pain in toe of left foot Pain in limb Pain in toe of right foot Pain in limb documented in this encounter [facility] note* Diagnosis Fall, initial encounter- Primary Muscle strain Unspecified site of sprain and strain SOB (shortness of breath) Shortness of breath documented in this encounter [facility] note* Diagnosis Fibromyalgia- Primary Mylagia and myositis, unspecified Encounter for screening for osteoporosis Special screening for osteoporosis Encounter for screening colonoscopy Special screening for malignant neoplasms, colon Symptoms of gastroesophageal reflux Rheumatoid arthritis, involving unspecified site, unspecified whether rheumatoid factor present (HCC) Osteoporosis, unspecified osteoporosis type, unspecified pathological fracture presence RLS (restless legs syndrome) Restless legs syndrome (RLS) Age-related osteoporosis without current pathological fracture Senile osteoporosis Chest pain, unspecified type documented in this encounter [facility] note* Diagnosis Rheumatoid arthritis, involving unspecified site, unspecified whether rheumatoid factor present (HCC)- Primary Elevated glucose Other abnormal glucose documented in this encounter [facility] note* Diagnosis History of chest pain- Primary Personal history of other specified diseases Encounter for screening colonoscopy Special screening for malignant neoplasms, colon Symptoms of gastroesophageal reflux History of colonic polyps Personal history of colonic polyps documented in this encounter [facility] note* Diagnosis Fibromyalgia- Primary Mylagia and myositis, unspecified Rheumatoid arthritis, involving unspecified site, unspecified whether rheumatoid factor present (HCC) Osteoporosis, unspecified osteoporosis type, unspecified pathological fracture presence documented in this encounter [facility] note* Diagnosis 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 Work Phone: Evaluation note* Diagnosis Onset Date Resolution Status Closed nondisplaced fracture of right tibial plateau resolved Difficulty in walking resolv ed Bicondylar fracture of right tibia acute Debility acute Restless leg syndrome acute Hypertension chronic Closed nondisplaced fracture of right tibial plateau resolved [facility] Work Phone: Evaluation note* Diagnosis Glaucoma suspect of both eyes- Primary Preglaucoma, unspecified Pseudophakia of both eyes Lens replaced by other means Presbyopia [facility] Diagnosis Encounter for long-term (current) use of high-risk medication- Primary Encounter for long-term (current) use of other medications Glaucoma suspect of both eyes Preglaucoma, unspecified Pseudophakia of both eyes Lens replaced by other means Presbyopia [facility] Diagnosis Onset Date Resolution Status Bicondylar fracture of right tibia acute Debility acute Hypertension chronic Restless leg syndrome chroni c Closed nondisplaced fracture of right tibial plateau resolved Osteopenia acute Foot pain chronic Hypertension chronic Lumbar radiculopathy chronic Restless leg syndrome chroni c Right leg DVT acute Diminished pulses in lower extremity noneactive [facility] Work Phone: Evaluation note* Diagnosis Onset Date Resolution Status Osteopenia acute Foot pain chronic Hypertension chronic Lumbar radiculopathy chronic Restless leg syndrome chroni c Right leg DVT acute Diminished pulses in lower extremity noneactive [facility] Work Phone: Evaluation note* Diagnosis Onset Date Resolution Status Osteopenia acute Foot pain chronic Hypertension chronic Lumbar radiculopathy chronic Restless leg syndrome chroni c Right leg DVT acute Diminished pulses in lower extremity noneactive Right leg DVT acute Diminished pulses in lower extremity noneactive [facility] Work Phone: Evaluation note* Diagnosis Age-related osteoporosis without current pathological fracture Senile osteoporosis [facility] Diagnosis Onset Date Resolution Status Osteopenia acute Foot pain chronic Hypertension chronic Lumbar radiculopathy chronic Restless leg syndrome chroni c Right leg DVT acute Diminished pulses in lower extremity noneactive Right leg DVT acute Diminished pulses in lower extremity noneactive Colon cancer screening acute Osteoporosis September 07, 2006 acute Nonscarring hair loss chroni c Odynophagia chronic Restless leg syndrome chroni c [facility] Work Phone: Evaluation note* Diagnosis Encounter for long-term (current) use of high-risk medication- Primary Encounter for long-term (current) use of other medications Glaucoma suspect of both eyes Preglaucoma, unspecified Pseudophakia of both eyes Lens replaced by other means [facility] Diagnosis Glaucoma suspect of both eyes- Primary Preglaucoma, unspecified Pseudophakia of both eyes Lens replaced by other means Presbyopia [facility] Diagnosis Primary open-angle glaucoma, bilateral, mild stage- Primary Pseudophakia of both eyes Lens replaced by other means Presbyopia Encounter for long-term (current) use of high-risk medication Encounter for long-term (current) use of other medications Glaucoma suspect of both eyes Preglaucoma, unspecified [facility] Diagnosis Primary open-angle glaucoma, bilateral, mild stage- Primary Pseudophakia of both eyes Lens replaced by other means Presbyopia Encounter for long-term (current) use of high-risk medication Encounter for long-term (current) use of other medications documented in this encounter [facility] Discharge instructionsAmbulatory Orders* Cardiology Location: None [facility] Work Phone: Reason for referral (narrative)No reason for referral [facility] Work [facility]: Reason for Referral Specialty Diagnoses / Procedures Referred By Cm ambriz Referred To Contact Podiatry Diagnoses Ingrown toenail Procedures CONSULT TO PODIATRY OFFICE/OUTPATIENT [facility] 60-74 MINUTES Julio C Washington MD [address] [place] [address] Referral ID Status Reason Start Date Expiration Date Visits Requested Visits Authorized [id number] Authorized PCP Requested Referral 02/19/2022 02/19/2023 1 1 Specialty Diagnoses / Procedures Referred By Cm ambriz Referred To Contact General Surgery Diagnoses Encounter for screening colonoscopy Symptoms of gastroesophageal reflux Procedures CONSULT TO GENERAL SURGERY OFFICE/OUTPATIENT [facility] 60-74 MINUTES Julio C Washington MD [address] [place] [address] Referral ID Status Reason Start Date Expiration Date Visits Requested Visits Authorized [id number] Authorized PCP Requested Referral 2 08/25/2023 1 1 Medications Administered Section Inactive Administered Medications - up to 3 most recent administrations Medication Order MAR Action Action Date Dose Rate Site fluorescein-benoxinate 0.25-0.4 % 1 Drop (FLURESS) 1 Drop, BOTH EYES, ONCE, 1 dose, On Thu09/19/22 at 1500, FOR THE EYE Given 09/19/2022 3:00 PM EST 1 Drop PHENYLephrine 2.5 % 1 Drop (AK-DILATE, CHANTAL-SYNEPHRINE) 1 Drop, BOTH EYES, ONCE, 1 dose, On Thu09/19/22 at 1500, FOR OPHTHALMIC USE ONLY PROTECT FROM LIGHT Given 09/19/2022 3:00 PM EST 1 Drop tropicamide 1 % 1 Drop (MYDRIACYL) 1 Drop, BOTH EYES, ONCE, 1 dose, On Thu09/19/22 at 1500, FOR THE EYE Given 09/19/2022 3:00 PM EST 1 Drop Active Administered Medications - up to 3 most recent administrations Medication Order MAR Action Action Date Dose Rate Site fluorescein-benoxinate 0.25-0.4 % 1 Drop (FLURESS) 1 Drop, BOTH EYES, DIRECTED, Starting on Ree 04/30/23 at 1030, Until Ree 04/30/23 at 2229, Administer for applanation tonometry. In the event of a Fluress shortage, administer Jasmin-Fluor 1 drop into both eyes as directed for applanation tonometry Given 04/30/2023 11:09 AM EDT 1 Drop PHENYLephrine 2.5 % 1 Drop (AK-DILATE, CHANTAL-SYNEPHRINE) 1 Drop, BOTH EYES, DIRECTED, Starting on Ree 04/30/23 at 1030, Until Ree 04/30/23 at 2229, Administer for dilation PROTECT FROM LIGHT Given 04/30/2023 11:12 AM EDT 1 Drop tropicamide 1 % 1 Drop (MYDRIACYL) 1 Drop, BOTH EYES, DIRECTED, Starting on Ree 04/30/23 at 1030, Until Ree 04/30/23 at 2229, Administer for dilation Given 04/30/2023 11:12 AM EDT 1 Drop Chief Complaint and Reason for Visit Chief Complaint DEBILITY, TIBIAL LINDA TEAU FRACTURE Reason for Visit Closed nondisplaced fracture of right tibial plateau Difficulty in walking Chief Complaint DEBILITY, TIBIAL LINDA TEAU FRACTURE DEBILITY, TIBIAL PLATEAU FRACTURE DEBILITY, TIBIAL PLATEAU FRACTURE DEBILITY, TIBIAL PLATEAU FRACTURE DEBILITY, TIBIAL PLATEAU FRACTURE DEBILITY, TIBIAL PLATEAU FRACTURE Reason for Visit Closed nondisplaced fracture of right tibial plateau Difficulty in walking Chief Complaint DEBILITY, TIBIAL LINDA TEAU FRACTURE DEBILITY, TIBIAL PLATEAU FRACTURE DEBILITY, TIBIAL PLATEAU FRACTURE DEBILITY, TIBIAL PLATEAU FRACTURE DEBILITY, TIBIAL PLATEAU FRACTURE DEBILITY, TIBIAL PLATEAU FRACTURE DEBILITY, TIBIAL PLATEAU FRACTURE Unspecified fracture of shaft of right tibia, init Reason for Visit Closed nondisplaced fracture of right tibial plateau Difficulty in walking Bicondylar fracture of right tibia Debility Restless leg syndrome Hypertension Closed nondisplaced fracture of right tibial plateau Chief Complaint DEBILITY, TIBIAL LINDA TEAU FRACTURE DEBILITY, TIBIAL PLATEAU FRACTURE DEBILITY, TIBIAL PLATEAU FRACTURE DEBILITY, TIBIAL PLATEAU FRACTURE DEBILITY, TIBIAL PLATEAU FRACTURE DEBILITY, TIBIAL PLATEAU FRACTURE DEBILITY, TIBIAL PLATEAU FRACTURE Unspecified fracture of shaft of right tibia, init Localized swelling, mass and lump, right lower rubio Reason for Visit Closed nondisplaced fracture of right tibial plateau Difficulty in walking Bicondylar fracture of right tibia Debility Restless leg syndrome Hypertension Closed nondisplaced fracture of right tibial plateau Chief Complaint DEBILITY, TIBIAL LINDA TEAU FRACTURE DEBILITY, TIBIAL PLATEAU FRACTURE DEBILITY, TIBIAL PLATEAU FRACTURE DEBILITY, TIBIAL PLATEAU FRACTURE DEBILITY, TIBIAL PLATEAU FRACTURE DEBILITY, TIBIAL PLATEAU FRACTURE DEBILITY, TIBIAL PLATEAU FRACTURE Unspecified fracture of shaft of right tibia, init Localized swelling, mass and lump, right lower rubio CHEST PAIN CHEST PAIN Reason for Visit Closed nondisplaced fracture of right tibial plateau Difficulty in walking Bicondylar fracture of right tibia Debility Restless leg syndrome Hypertension Closed nondisplaced fracture of right tibial plateau Chief Complaint DEBILITY, TIBIAL LINDA TEAU FRACTURE DEBILITY, TIBIAL PLATEAU FRACTURE DEBILITY, TIBIAL PLATEAU FRACTURE DEBILITY, TIBIAL PLATEAU FRACTURE DEBILITY, TIBIAL PLATEAU FRACTURE DEBILITY, TIBIAL PLATEAU FRACTURE DEBILITY, TIBIAL PLATEAU FRACTURE Unspecified fracture of shaft of right tibia, init Localized swelling, mass and lump, right lower urbio CHEST PAIN CHEST PAIN PAIN- COPY PCP Reason for Visit Closed nondisplaced fracture of right tibial plateau Difficulty in walking Bicondylar fracture of right tibia Debility Restless leg syndrome Hypertension Closed nondisplaced fracture of right tibial plateau Chief Complaint DEBILITY, TIBIAL LINDA TEAU FRACTURE DEBILITY, TIBIAL PLATEAU FRACTURE DEBILITY, TIBIAL PLATEAU FRACTURE DEBILITY, TIBIAL PLATEAU FRACTURE DEBILITY, TIBIAL PLATEAU FRACTURE DEBILITY, TIBIAL PLATEAU FRACTURE DEBILITY, TIBIAL PLATEAU FRACTURE Unspecified fracture of shaft of right tibia, init Localized swelling, mass and lump, right lower rubio CHEST PAIN CHEST PAIN PAIN- COPY PCP ABNORMAL SENSATION OF LOWER EXT ABNORMAL SENSATION OF LOWER EXT RIGHT LOWER EXT EDEMA Reason for Visit Closed nondisplaced fracture of right tibial plateau Difficulty in walking Bicondylar fracture of right tibia Debility Restless leg syndrome Hypertension Closed nondisplaced fracture of right tibial plateau Chief Complaint DEBILITY, TIBIAL LINDA TEAU FRACTURE Unspecified fracture of shaft of right tibia, init Localized swelling, mass and lump, right lower rubio CHEST PAIN CHEST PAIN PAIN- COPY PCP ABNORMAL SENSATION OF LOWER EXT ABNORMAL SENSATION OF LOWER EXT RIGHT LOWER EXT EDEMA [employer]. EST CARE - PPW SENT CONSULT-DVT HX OF VENOUS THROMBOSIS AND EMBOLISM Reason for Visit Bicondylar fracture of right tibia Debility Hypertension Restless leg syndrome Closed nondisplaced fracture of right tibial plateau Osteopenia Foot pain Hypertension Lumbar radiculopathy Restless leg syndrome Right leg DVT Diminished pulses in lower extremity Chief Complaint DEBILITY, TIBIAL LINDA TEAU FRACTURE Localized swelling, mass and lump, right lower rubio CHEST PAIN CHEST PAIN PAIN- COPY PCP ABNORMAL SENSATION OF LOWER EXT ABNORMAL SENSATION OF LOWER EXT RIGHT LOWER EXT EDEMA [employer]. EST CARE - PPW SENT CONSULT-DVT HX OF VENOUS THROMBOSIS AND EMBOLISM WW Other specified symptoms and signs involving the c Reason for Visit Bicondylar fracture of right tibia Debility Hypertension Restless leg syndrome Closed nondisplaced fracture of right tibial plateau Osteopenia Foot pain Hypertension Lumbar radiculopathy Restless leg syndrome Right leg DVT Diminished pulses in lower extremity Chief Complaint Localized swelling, mass and lump, right lower rubio CHEST PAIN CHEST PAIN PAIN- COPY PCP ABNORMAL SENSATION OF LOWER EXT ABNORMAL SENSATION OF LOWER EXT RIGHT LOWER EXT EDEMA [employer]. EST CARE - PPW SENT CONSULT-DVT HX OF VENOUS THROMBOSIS AND EMBOLISM WW Other specified symptoms and signs involving the c Reason for Visit Osteopenia Foot pain Hypertension Lumbar radiculopathy Restless leg syndrome Right leg DVT Diminished pulses in lower extremity Chief Complaint Localized swelling, mass and lump, right lower rubio CHEST PAIN CHEST PAIN PAIN- COPY PCP ABNORMAL SENSATION OF LOWER EXT ABNORMAL SENSATION OF LOWER EXT RIGHT LOWER EXT EDEMA [employer]. EST CARE - PPW SENT CONSULT-DVT HX OF VENOUS THROMBOSIS AND EMBOLISM WW Other specified symptoms and signs involving the c PAIN- COPY PCP Reason for Visit Osteopenia Foot pain Hypertension Lumbar radiculopathy Restless leg syndrome Right leg DVT Diminished pulses in lower extremity Chief Complaint PAIN- COPY PCP ABNORMAL SENSATION OF LOWER EXT ABNORMAL SENSATION OF LOWER EXT RIGHT LOWER EXT EDEMA [employer]. EST CARE - PPW SENT CONSULT-DVT HX OF VENOUS THROMBOSIS AND EMBOLISM Other specified symptoms and signs involving the c PAIN- COPY PCP WW 4 WEEK F/U WW Reason for Visit Osteopenia Foot pain Hypertension Lumbar radiculopathy Restless leg syndrome Right leg DVT Diminished pulses in lower extremity Right leg DVT Diminished pulses in lower extremity Chief Complaint [employer]. EST CARE - PPW SENT CONSULT-DVT HX OF VENOUS THROMBOSIS AND EMBOLISM Other specified symptoms and signs involving the c PAIN- COPY PCP WW 4 WEEK F/U WW LUMBAR RADICULOPATHY 4 m fu/DISCUSS COLOGUARD Reason for Visit Osteopenia Foot pain Hypertension Lumbar radiculopathy Restless leg syndrome Right leg DVT Diminished pulses in lower extremity Right leg DVT Diminished pulses in lower extremity Colon cancer screening Osteoporosis Nonscarring hair loss Odynophagia Restless leg syndrome Chief Complaint 4 WEEK F/U WW LUMBAR RADICULOPATHY 4 m fu/DISCUSS COLOGUARD COLD SX DYSPHAGIA Reason for Visit Right leg DVT Diminished pulses in lower extremity Colon cancer screening Osteoporosis Nonscarring hair loss Odynophagia Restless leg syndrome Chief Complaint LUMBAR RADICULOPATHY 4 m fu/DISCUSS COLOGUARD COLD SX DYSPHAGIA DYSPHAGIA 12 MM TABLET Reason for Visit Colon cancer screeni ng Osteoporosis Nonscarring hair loss Odynophagia Restless leg syndrome Chief Complaint LUMBAR RADICULOPATHY 4 m fu/DISCUSS COLOGUARD COLD SX DYSPHAGIA DYSPHAGIA 12 MM TABLET 3 M FU RIGHT UPPER BACK SWELLING Reason for Visit Colon cancer screeni ng Nonscarring hair loss Odynophagia Osteoporosis Restless leg syndrome GERD (gastroesophageal reflux disease) Hypertension Nonscarring hair loss Odynophagia Osteoporosis Restless leg syndrome Chief Complaint Admit Date wound July 19, 2024 7:40pm wound July 26, 2024 1:00pm wound July 26, 2024 10:05pm wound August 09, 2024 5 :31pm wound August 23, 2024 7:19pm wound September 06, 2024 10:00am wound September 06, 2024 2:54pm wound September 27, 2024 1 :05pm wound September 27, 2024 6 :19pm wound October 11, 2024 1 2:57pm wound October 11, 2024 2 :58pm 3 M FU October 12, 2024 1 1:00am GARNICA October 28, 2024 6:22am GARNICA October 28, 2024 12:33pm PAIN- COPY PCP November 01, 2024 9:12am POST NOAH, R06.09 Other forms of dyspnea November 08, 2024 7:32am SHORTNESS OF BREATH November 11, 2024 9:47 am Reason for Visit Admit Date High cholesterol July 26, 2024 1:00pm History of blood clots July 26 1:00pm History of carpal tunnel surgery Markel r 2023 1:00pm History of dilatation and curettage Ciara monroy 2023 1:00pm History of DVT of lower extremity Novemb er 2023 1:00pm History of uterine suspension procedure July 26, 2024 1:00pm Hx of cataract surgery July 26 1:00pm Hx of foot surgery July 26, 2024 1:00pm Migraines July 26, 2024 1:00pm Osteoarthritis July 26, 2024 1:00pm Osteopenia July 26, 2024 1:00pm Rheumatoid arthritis July 26, 2024 1:00pm Surgical wound dehiscence July 26, 2024 1:00pm GERD (gastroesophageal reflux disease) N ovember 2023 1:00pm Hypertension July 26, 2024 1:00pm Lumbar radiculopathy July 26, 2024 1:00pm 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 July 26, 2024 1:00pm Osteoporosis July 26, 2024 1:00pm Post-thrombotic syndrome July 26, 2024 1:00pm Restless leg syndrome July 26 1:00pm Traumatic open wound of righ t lower leg with delayed healing July 26, 2024 1:00pm High cholesterol September 06, 2024 10:00am History of blood clots September 06 10:00am History of carpal tunnel surgery Jeremi r 2023 10:00am History of dilatation and curettage Dece mber 2023 10:00am History of DVT of lower extremity Decemb er 2023 10:00am History of uterine suspension procedure September 06, 2024 10:00am Hx of cataract surgery September 06 10:00am Hx of foot surgery September 06, 2024 10:00am Migraines September 06, 2024 10:00am Osteoarthritis September 06, 2024 10:00am Osteopenia September 06, 2024 10:00am Rheumatoid arthritis September 06, 2024 10:00am Surgical wound dehiscence September 06, 2024 10:00am GERD (gastroesophageal reflux disease) D ecember 2023 10:00am Hypertension September 06, 2024 10:00am Lumbar radiculopathy September 06, 2024 10:00am 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 September 06, 2024 10:00am Osteoporosis September 06, 2024 10:00am Post-thrombotic syndrome September 06, 2024 10:00am Restless leg syndrome September 06 10:00am Traumatic open wound of righ t lower leg with delayed healing September 06, 2024 10:00am High cholesterol September 27, 2024 1 :05pm History of blood clots September 27 1:05pm History of carpal tunnel surgery September 27, 2024 1:05pm History of dilatation and curettage Sedrick mendel 2024 1:05pm History of DVT of lower extremity Januar y 2024 1:05pm History of uterine suspension procedure September 27, 2024 1:05pm Hx of cataract surgery September 27 1:05pm Hx of foot surgery September 27, 2024 1 :05pm Migraines September 27, 2024 1 :05pm Osteoarthritis September 27, 2024 1 :05pm Osteopenia September 27, 2024 1 :05pm Rheumatoid arthritis September 27, 2024 1:05pm Surgical wound dehiscence September 27, 2024 1:05pm GERD (gastroesophageal reflux disease) J anuary 2024 1:05pm Hypertension September 27, 2024 1 :05pm Lumbar radiculopathy September 27, 2024 1:05pm 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 September 27, 2024 1:05pm Osteoporosis September 27, 2024 1 :05pm Post-thrombotic syndrome September 27, 2 025 1:05pm Restless leg syndrome September 27, 2024 1:05pm Traumatic open wound of righ t lower leg with delayed healing September 27, 2024 1:05pm High cholesterol October 11, 2024 1 2:57pm History of blood clots October 11 12:57pm History of carpal tunnel surgery Februar y 2024 12:57pm History of dilatation and curettage Febr uary 2024 12:57pm History of DVT of lower extremity Februa ry 2024 12:57pm History of uterine suspension procedure October 11, 2024 12:57pm Hx of cataract surgery October 11 12:57pm Hx of foot surgery October 11, 2024 1 2:57pm Migraines October 11, 2024 1 2:57pm Osteoarthritis October 11, 2024 1 2:57pm Osteopenia October 11, 2024 1 2:57pm Rheumatoid arthritis October 11, 2024 12:57pm Surgical wound dehiscence October 11, 2024 12:57pm GERD (gastroesophageal reflux disease) F ebruary 2024 12:57pm Hypertension October 11, 2024 1 2:57pm Lumbar radiculopathy October 11, 2024 12:57pm 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 October 11, 2024 12:57pm Osteoporosis October 11, 2024 1 2:57pm Post-thrombotic syndrome October 11, 2 025 12:57pm Restless leg syndrome October 11, 2024 12:57pm Traumatic open wound of righ t lower leg with delayed healing October 11, 2024 12:57pm Dyspnea on exertion October 12, 2024 1 1:00am Hypertension October 12, 2024 1 1:00am Osteoporosis October 12, 2024 1 1:00am Restless leg syndrome October 12, 2024 11:00am Venous insufficiency October 12, 2024 11:00am Shortness of breath November 11, 2024 9:47 am Chest pain November 11, 2024 9:47 am Dyspnea on exertion November 11, 2024 9:47 am Hypertension November 11, 2024 9:47 am Osteoporosis November 11, 2024 9:47 am Chief Complaint Admit Date wound July 26, 2024 1:00pm wound July 26, 2024 10:05pm wound August 09, 2024 5 :31pm wound August 23, 2024 7:19pm wound September 06, 2024 10:00am wound September 06, 2024 2:54pm wound September 27, 2024 1 :05pm wound September 27, 2024 6 :19pm wound October 11, 2024 1 2:57pm wound October 11, 2024 2 :58pm 3 M FU October 12, 2024 1 1:00am GARNICA October 28, 2024 6:22am GARNICA October 28, 2024 12:33pm PAIN- COPY PCP November 01, 2024 9:12am POST NOAH, R06.09 Other forms of dyspnea November 08, 2024 7:32am DYSPNEA, WEAKNESS November 08, 2024 8:13 am SHORTNESS OF BREATH November 11, 2024 9:47 am Chief Complaint Admit Date wound August 09, 2024 5 :31pm wound August 23, 2024 7:19pm wound September 06, 2024 10:00am wound September 06, 2024 2:54pm wound September 27, 2024 1 :05pm wound September 27, 2024 6 :19pm wound October 11, 2024 1 2:57pm wound October 11, 2024 2 :58pm 3 M FU October 12, 2024 1 1:00am GARNICA October 28, 2024 6:22am GARNICA October 28, 2024 12:33pm PAIN- COPY PCP November 01, 2024 9:12am POST NOAH, R06.09 Other forms of dyspnea November 08, 2024 7:32am DYSPNEA, WEAKNESS November 08, 2024 8:13 am SHORTNESS OF BREATH November 11, 2024 9:47 am R06.02 - Shortness of breath November 22, 2024 6:34am Reason for Visit Admit Date High cholesterol September 06, 2024 10:00am History of blood clots September 06 10:00am History of carpal tunnel surgery Decembe r 2023 10:00am History of dilatation and curettage Dece mber 2023 10:00am History of DVT of lower extremity Decemb er 2023 10:00am History of uterine suspension procedure September 06, 2024 10:00am Hx of cataract surgery September 06 10:00am Hx of foot surgery September 06, 2024 10:00am Migraines September 06, 2024 10:00am Osteoarthritis September 06, 2024 10:00am Osteopenia September 06, 2024 10:00am Rheumatoid arthritis September 06, 2024 10:00am Surgical wound dehiscence September 06, 2024 10:00am GERD (gastroesophageal reflux disease) D ecember 2023 10:00am Hypertension September 06, 2024 10:00am Lumbar radiculopathy September 06, 2024 10:00am 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 September 06, 2024 10:00am Osteoporosis September 06, 2024 10:00am Post-thrombotic syndrome September 06, 2024 10:00am Restless leg syndrome September 06 10:00am Traumatic open wound of righ t lower leg with delayed healing September 06, 2024 10:00am High cholesterol September 27, 2024 1 :05pm History of blood clots September 27 1:05pm History of carpal tunnel surgery September 27, 2024 1:05pm History of dilatation and curettage Sedrick [email or web address] 1:05pm History of DVT of lower extremity Januar y 2024 1:05pm History of uterine suspension procedure September 27, 2024 1:05pm Hx of cataract surgery September 27 1:05pm Hx of foot surgery September 27, 2024 1 :05pm Migraines September 27, 2024 1 :05pm Osteoarthritis September 27, 2024 1 :05pm Osteopenia September 27, 2024 1 :05pm Rheumatoid arthritis September 27, 2024 1:05pm Surgical wound dehiscence September 27, 2024 1:05pm GERD (gastroesophageal reflux disease) J anuary 2024 1:05pm Hypertension September 27, 2024 1 :05pm Lumbar radiculopathy September 27, 2024 1:05pm 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 September 27, 2024 1:05pm Osteoporosis September 27, 2024 1 :05pm Post-thrombotic syndrome September 27, 2 025 1:05pm Restless leg syndrome September 27, 2024 1:05pm Traumatic open wound of righ t lower leg with delayed healing September 27, 2024 1:05pm High cholesterol October 11, 2024 1 2:57pm History of blood clots October 11 12:57pm History of carpal tunnel surgery Februar y 2024 12:57pm History of dilatation and curettage Febr uary 2024 12:57pm History of DVT of lower extremity ua ry 2024 12:57pm History of uterine suspension procedure October 11, 2024 12:57pm Hx of cataract surgery October 11 12:57pm Hx of foot surgery October 11, 2024 1 2:57pm Migraines October 11, 2024 1 2:57pm Osteoarthritis October 11, 2024 1 2:57pm Osteopenia October 11, 2024 1 2:57pm Rheumatoid arthritis October 11, 2024 12:57pm Surgical wound dehiscence October 11, 2024 12:57pm GERD (gastroesophageal reflux disease) F ebruary 2024 12:57pm Hypertension October 11, 2024 1 2:57pm Lumbar radiculopathy October 11, 2024 12:57pm 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 October 11, 2024 12:57pm Osteoporosis October 11, 2024 1 2:57pm Post-thrombotic syndrome October 11, 025 12:57pm Restless leg syndrome October 11, 2024 12:57pm Traumatic open wound of righ t lower leg with delayed healing October 11, 2024 12:57pm Dyspnea on exertion October 12, 2024 1 1:00am Hypertension October 12, 2024 1 1:00am Osteoporosis October 12, 2024 1 1:00am Restless leg syndrome October 12, 2024 11:00am Venous insufficiency October 12, 2024 11:00am Shortness of breath November 11, 2024 9:47 am Chest pain November 11, 2024 9:47 am Dyspnea on exertion November 11, 2024 9:47 am Hypertension November 11, 2024 9:47 am Osteoporosis November 11, 2024 9:47 am Chief Complaint Admit Date wound August 23, 2024 7:19pm wound September 06, 2024 10:00am wound September 06, 2024 2:54pm wound September 27, 2024 1 :05pm wound September 27, 2024 6 :19pm wound October 11, 2024 1 2:57pm wound October 11, 2024 2 :58pm 3 M FU October 12, 2024 1 1:00am GARNICA October 28, 2024 6:22am GARNICA October 28, 2024 12:33pm PAIN- COPY PCP November 01, 2024 9:12am POST NOAH, R06.09 Other forms of dyspnea November 08, 2024 7:32am DYSPNEA, WEAKNESS November 08, 2024 8:13 am SHORTNESS OF BREATH November 11, 2024 9:47 am R06.02 - Shortness of breath November 22, 2024 6:34am CP (OLEGHE) December 08, 2024 9:12 am E-ORDER December 08, 2024 10:1 2am Reason for Visit Admit Date High cholesterol September 06, 2024 10:00am History of blood clots September 06 10:00am History of carpal tunnel surgery Decembe r 2023 10:00am History of dilatation and curettage Dece mber 2023 10:00am History of uterine suspension procedure September 06, 2024 10:00am Hx of cataract surgery September 06 10:00am Hx of foot surgery September 06, 2024 10:00am Migraines September 06, 2024 10:00am Osteoarthritis September 06, 2024 10:00am Osteopenia September 06, 2024 10:00am Rheumatoid arthritis September 06, 2024 10:00am Surgical wound dehiscence September 06, 2024 10:00am GERD (gastroesophageal reflux disease) D ecember 2023 10:00am Hypertension September 06, 2024 10:00am Lumbar radiculopathy September 06, 2024 10:00am 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 September 06, 2024 10:00am Osteoporosis September 06, 2024 10:00am Post-thrombotic syndrome September 06, 2024 10:00am Restless leg syndrome September 06 10:00am Traumatic open wound of righ t lower leg with delayed healing September 06, 2024 10:00am History of DVT of lower extremity Decemb er 2023 10:00am High cholesterol September 27, 2024 1 :05pm History of blood clots September 27 1:05pm History of carpal tunnel surgery September 27, 2024 1:05pm History of dilatation and curettage Sedrick [email or web address] 2024 1:05pm History of uterine suspension procedure September 27, 2024 1:05pm Hx of cataract surgery September 27 1:05pm Hx of foot surgery September 27, 2024 1 :05pm Migraines September 27, 2024 1 :05pm Osteoarthritis September 27, 2024 1 :05pm Osteopenia September 27, 2024 1 :05pm Rheumatoid arthritis September 27, 2024 1:05pm Surgical wound dehiscence September 27, 2024 1:05pm GERD (gastroesophageal reflux disease) J anuary 2024 1:05pm Hypertension September 27, 2024 1 :05pm Lumbar radiculopathy September 27, 2024 1:05pm 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 September 27, 2024 1:05pm Osteoporosis September 27, 2024 1 :05pm Post-thrombotic syndrome September 27, 025 1:05pm Restless leg syndrome September 27, 2024 1:05pm Traumatic open wound of righ t lower leg with delayed healing September 27, 2024 1:05pm History of DVT of lower extremity 2024 1:05pm High cholesterol October 11, 2024 1 2:57pm History of blood clots October 11 12:57pm History of carpal tunnel surgery uar y 2024 12:57pm History of dilatation and curettage [email or web address] 12:57pm History of uterine suspension procedure October 11, 2024 12:57pm Hx of cataract surgery October 11 12:57pm Hx of foot surgery October 11, 2024 1 2:57pm Migraines October 11, 2024 1 2:57pm Osteoarthritis October 11, 2024 1 2:57pm Osteopenia October 11, 2024 1 2:57pm Rheumatoid arthritis October 11, 2024 12:57pm Surgical wound dehiscence October 11, 2024 12:57pm GERD (gastroesophageal reflux disease) F ebruary 2024 12:57pm Hypertension October 11, 2024 1 2:57pm Lumbar radiculopathy October 11, 2024 12:57pm 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 October 11, 2024 12:57pm Osteoporosis October 11, 2024 1 2:57pm Post-thrombotic syndrome October 11, 2 025 12:57pm Restless leg syndrome October 11, 2024 12:57pm Traumatic open wound of righ t lower leg with delayed healing October 11, 2024 12:57pm History of DVT of lower extremity Februa 2024 12:57pm Dyspnea on exertion October 12, 2024 1 1:00am Hypertension October 12, 2024 1 1:00am Osteoporosis October 12, 2024 1 1:00am Restless leg syndrome October 12, 2024 11:00am Venous insufficiency October 12, 2024 11:00am Shortness of breath November 11, 2024 9:47 am Chest pain November 11, 2024 9:47 am Dyspnea on exertion November 11, 2024 9:47 am Hypertension November 11, 2024 9:47 am Osteoporosis November 11, 2024 9:47 am Angina pectoris December 08, 2024 9:12 am Hypertension December 08, 2024 9:12 am Rheumatoid arthritis December 08, 2024 9:1 2am History of DVT of lower extremity December 08, 2024 9:12am Chief Complaint Admit Date wound September 06, 2024 10:00am wound September 06, 2024 2:54pm wound September 27, 2024 1 :05pm wound September 27, 2024 6 :19pm wound October 11, 2024 1 2:57pm wound October 11, 2024 2 :58pm 3 M FU October 12, 2024 1 1:00am GARNICA October 28, 2024 6:22am GARNICA October 28, 2024 12:33pm PAIN- COPY PCP November 01, 2024 9:12am POST NOAH, R06.09 Other forms of dyspnea November 08, 2024 7:32am DYSPNEA, WEAKNESS November 08, 2024 8:13 am SHORTNESS OF BREATH November 11, 2024 9:47 am R06.02 - Shortness of breath November 22, 2024 6:34am CP (OLEGHE) December 08, 2024 9:12 am E-ORDER December 08, 2024 10:1 2am SOB December 20, 2024 1:4 9pm Chief Complaint Admit Date wound September 27, 2024 1 :05pm wound September 27, 2024 6 :19pm wound October 11, 2024 1 2:57pm wound October 11, 2024 2 :58pm 3 M FU October 12, 2024 1 1:00am GARNICA October 28, 2024 6:22am GARNICA October 28, 2024 12:33pm PAIN- COPY PCP November 01, 2024 9:12am POST NOAH, R06.09 Other forms of dyspnea November 08, 2024 7:32am DYSPNEA, WEAKNESS November 08, 2024 8:13 am SHORTNESS OF BREATH November 11, 2024 9:47 am R06.02 - Shortness of breath November 22, 2024 6:34am CP (OLEGHE) December 08, 2024 9:12 am E-ORDER December 08, 2024 10:1 2am SOB December 20, 2024 1:4 9pm Reason for Visit Admit Date High cholesterol September 27, 2024 1 :05pm History of blood clots September 27 1:05pm History of carpal tunnel surgery September 27, 2024 1:05pm History of dilatation and curettage Sedrick [email or web address] 1:05pm History of uterine suspension procedure September 27, 2024 1:05pm Hx of cataract surgery September 27 1:05pm Hx of foot surgery September 27, 2024 1 :05pm Migraines September 27, 2024 1 :05pm Osteoarthritis September 27, 2024 1 :05pm Osteopenia September 27, 2024 1 :05pm Rheumatoid arthritis September 27, 2024 1:05pm Surgical wound dehiscence September 27, 2024 1:05pm GERD (gastroesophageal reflux disease) J anuary 2024 1:05pm Hypertension September 27, 2024 1 :05pm Lumbar radiculopathy September 27, 2024 1:05pm 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 September 27, 2024 1:05pm Osteoporosis September 27, 2024 1 :05pm Post-thrombotic syndrome September 27, 2 025 1:05pm Restless leg syndrome September 27, 2024 1:05pm Traumatic open wound of righ t lower leg with delayed healing September 27, 2024 1:05pm History of DVT of lower extremity 2024 1:05pm High cholesterol October 11, 2024 1 2:57pm History of blood clots October 11 12:57pm History of carpal tunnel surgery 2024 12:57pm History of dilatation and curettage Febr uary 2024 12:57pm History of uterine suspension procedure October 11, 2024 12:57pm Hx of cataract surgery October 11 12:57pm Hx of foot surgery October 11, 2024 1 2:57pm Migraines October 11, 2024 1 2:57pm Osteoarthritis October 11, 2024 1 2:57pm Osteopenia October 11, 2024 1 2:57pm Rheumatoid arthritis October 11, 2024 12:57pm Surgical wound dehiscence October 11, 2024 12:57pm GERD (gastroesophageal reflux disease) F ebruary 2024 12:57pm Hypertension October 11, 2024 1 2:57pm Lumbar radiculopathy October 11, 2024 12:57pm 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 October 11, 2024 12:57pm Osteoporosis October 11, 2024 1 2:57pm Post-thrombotic syndrome October 11, 025 12:57pm Restless leg syndrome October 11, 2024 12:57pm Traumatic open wound of righ t lower leg with delayed healing October 11, 2024 12:57pm History of DVT of lower extremity 2024 12:57pm Dyspnea on exertion October 12, 2024 1 1:00am Hypertension October 12, 2024 1 1:00am Osteoporosis October 12, 2024 1 1:00am Restless leg syndrome October 12, 2024 11:00am Venous insufficiency October 12, 2024 11:00am Shortness of breath November 11, 2024 9:47 am Chest pain November 11, 2024 9:47 am Dyspnea on exertion November 11, 2024 9:47 am Hypertension November 11, 2024 9:47 am Osteoporosis November 11, 2024 9:47 am Angina pectoris December 08, 2024 9:12 am Hypertension December 08, 2024 9:12 am Rheumatoid arthritis December 08, 2024 9:1 2am History of DVT of lower extremity December 08, 2024 9:12am Chief Complaint Admit Date wound September 27, 2024 1 :05pm wound September 27, 2024 6 :19pm wound October 11, 2024 1 2:57pm wound October 11, 2024 2 :58pm 3 M FU October 12, 2024 1 1:00am GARNICA October 28, 2024 6:22am GARNICA October 28, 2024 12:33pm PAIN- COPY PCP November 01, 2024 9:12am POST NOAH, R06.09 Other forms of dyspnea November 08, 2024 7:32am DYSPNEA, WEAKNESS November 08, 2024 8:13 am SHORTNESS OF BREATH November 11, 2024 9:47 am R06.02 - Shortness of breath November 22, 2024 6:34am CP (OLEGHE) December 08, 2024 9:12 am E-ORDER December 08, 2024 10:1 2am SOB December 20, 2024 1:4 9pm 3 M FU January 18, 2025 10:30 am Chief Complaint Admit Date 3 M FU October 12, 2024 1 1:00am GARNICA October 28, 2024 6:22am GARNICA October 28, 2024 12:33pm PAIN- COPY PCP November 01, 2024 9:12am POST NOAH, R06.09 Other forms of dyspnea November 08, 2024 7:32am DYSPNEA, WEAKNESS November 08, 2024 8:13 am SHORTNESS OF BREATH November 11, 2024 9:47 am R06.02 - Shortness of breath November 22, 2024 6:34am CP (OLEGHE) December 08, 2024 9:12 am E-ORDER December 08, 2024 10:1 2am SOB December 20, 2024 1:4 9pm 3 M FU January 18, 2025 10:30 am CHEST PAIN, SOB January 20, 2025 12:00 am CHEST PAIN, SOB January 20, 2025 12:09 pm CHEST PAIN, SOB January 21, 2025 9:30a m LOWER BACK PAIN January 26, 2025 1:23p m ACUTE SCIATIC PAIN February 09, 2025 1:45p m Reason for Visit Admit Date Dyspnea on exertion October 12, 2024 1 1:00am Hypertension October 12, 2024 1 1:00am Osteoporosis October 12, 2024 1 1:00am Restless leg syndrome October 12, 2024 11:00am Venous insufficiency October 12, 2024 11:00am Shortness of breath November 11, 2024 9:47 am Chest pain November 11, 2024 9:47 am Dyspnea on exertion November 11, 2024 9:47 am Hypertension November 11, 2024 9:47 am Osteoporosis November 11, 2024 9:47 am Angina pectoris December 08, 2024 9:12 am Hypertension December 08, 2024 9:12 am Rheumatoid arthritis December 08, 2024 9:1 2am History of DVT of lower extremity December 08, 2024 9:12am Depression January 18, 2025 10:30 am Vitamin D deficiency January 18, 2025 10:3 0am Dyspnea on exertion January 18, 2025 10:30 am Nail abnormality January 18, 2025 10:30 am Osteoporosis January 18, 2025 10:30 am Restless leg syndrome January 18, 2025 10: 30am Venous insufficiency January 18, 2025 10:3 0am Right sided sciatica January 26, 2025 1:23 pm Right sided sciatica February 09, 2025 1:45 pm Chief Complaint Admit Date R06.02 - Shortness of breath November 22, 2024 6:34am R06.02 - Shortness of breath November 22, 2024 6:48am CP (DENAE) December 08, 2024 9:12 am E-ORDER December 08, 2024 10:1 2am SOB December 20, 2024 1:4 9pm 3 M FU January 18, 2025 10:30 am CHEST PAIN, SOB January 20, 2025 12:00 am CHEST PAIN, SOB January 20, 2025 12:09 pm CHEST PAIN, SOB January 21, 2025 9:30a m LOWER BACK PAIN January 26, 2025 1:23p m ACUTE SCIATIC PAIN February 09, 2025 1:45p m 3 M FU March 14, 2025 11:15 am Reason for Visit Admit Date Angina pectoris December 08, 2024 9:12 am Hypertension December 08, 2024 9:12 am Rheumatoid arthritis December 08, 2024 9:1 2am History of DVT of lower extremity December 08, 2024 9:12am Depression January 18, 2025 10:30 am Vitamin D deficiency January 18, 2025 10:3 0am Dyspnea on exertion January 18, 2025 10:30 am Nail abnormality January 18, 2025 10:30 am Osteoporosis January 18, 2025 10:30 am Restless leg syndrome January 18, 2025 10: 30am Venous insufficiency January 18, 2025 10:3 0am Right sided sciatica January 26, 2025 1:23 pm Right sided sciatica February 09, 2025 1:45 pm Advance Directives Advance Directive Response Recorded Date/ Time Living Will Yes January 02, 2023 9:45am Power of Philosophy Professor Yes January 02 9:45am Name of Medical Power of Philosophy Professor ADDI Coffey January 02, 2023 9:45am Advance Directive Response Recorded Date/ Time Name of Medical Power of Philosophy Professor LIGIA SNIDER January 02, 2023 2:54pm Living Will Yes January 02, 2023 2:54pm Power of Philosophy Professor Yes January 02 2:54pm Advance Directive Response Recorded Date/ Time Name of Medical Power of Philosophy Professor LIGIA SNIDER January 02, 2023 2:54pm Name of Medical Power of Philosophy Professor Ligia coffey January 08, 2023 5:10pm Living Will Yes January 08, 2023 5: 10pm Power of Philosophy Professor Yes January 08, 2023 5:10pm Advance Directive Response Recorded Date/ Time Name of Medical Power of Philosophy Professor Ligia coffey January 08, 2023 5:10pm Living Will Yes January 08, 2023 5: 10pm Power of Philosophy Professor Yes January 08, 2023 5:10pm Advance Directive Response Recorded Date/ Time Living Will Yes January 08, 2023 5: 10pm Power of Philosophy Professor Yes January 08, 2023 5:10pm Advance Directive Response Recorded Date/ Time Living Will Yes January 08, 2023 4: 10pm Power of Philosophy Professor Yes January 08, 2023 4:10pm Advance Directive Response Recorded Date/ Time Living Will Yes September 08 9:27am Power of Philosophy Professor Yes September 08 9:27am Advance Directive Response Recorded Date/ Time Living Will Yes September 08 10:27am Power of Philosophy Professor Yes September 08 10:27am Advance Directive Response Recorded Date/ Time Living Will No May 10 9:21am Power of Philosophy Professor No May 10, 2024 9:21am Living Will No August 07 1:15am Power of Philosophy Professor No August 07, 2024 1:15am Living Will No September 07 1:11am Power of Philosophy Professor No September 07 1:11am Living Will No October 08 1:34am Power of Philosophy Professor No October 08, 2024 1:34am Advance Directive Response Recorded Date/ Time Living Will No May 10 9:21am Do you have a Healthcare Power of Philosophy Professor? No May 10, 2024 9:21am Living Will No August 07 1:15am Do you have a Healthcare Power of Philosophy Professor? No August 07, 2024 1:15am Living Will No September 07 1:11am Do you have a Healthcare Power of Philosophy Professor? No September 07, 2024 1:11am Living Will No October 08 1:34am Do you have a Healthcare Power of Philosophy Professor? No October 08, 2024 1:34am Advance Directive Response Recorded Date/ Time Living Will No May 10 9:21am Do you have a Healthcare Power of Philosophy Professor? No May 10, 2024 9:21am Living Will No September 07 1:11am Do you have a Healthcare Power of Philosophy Professor? No September 07, 2024 1:11am Living Will No October 08 1:34am Do you have a Healthcare Power of Philosophy Professor? No October 08, 2024 1:34am Advance Directive Response Recorded Date/ Time Living Will No May 10 9:21am Do you have a Healthcare Power of Philosophy Professor? No May 10, 2024 9:21am Family History No Family History Records Found Relationship Condition Age at Onset Recorded Date/T minerva Not Specified Cardiac disease Unknown Malignant neoplasm Unknown sister History of blood clots Unknown mother Hypertension Unknown Summary Purpose Additional Source Comments Source Comments (unrecognize d section and content) In the event this informatio n is protected by the Federal Confidentiality of Alcohol and Drug Abuse Patient Records regulations: The Federal rules restrict any use of the information to criminally investigate or prosecute any alcohol or drug abuse patient.[facility] the event this information is protected by the Federal Confidentiality of Alcohol and Drug Abuse Patient Records regulations: The Federal rules restrict any use of the information to criminally investigate or prosecute any alcohol or drug abuse patient.[facility] the event this information is protected by the Federal Confidentiality of Alcohol and Drug Abuse Patient Records regulations: The Federal rules restrict any use of the information to criminally investigate or prosecute any alcohol or drug abuse patient.[facility] the event this information is protected by the Federal Confidentiality of Alcohol and Drug Abuse Patient Records regulations: The Federal rules restrict any use of the information to criminally investigate or prosecute any alcohol or drug abuse patient.[facility] the event this information is protected by the Federal Confidentiality of Alcohol and Drug Abuse Patient Records regulations: The Federal rules restrict any use of the information to criminally investigate or prosecute any alcohol or drug abuse patient.[facility] the event this information is protected by the Federal Confidentiality of Alcohol and Drug Abuse Patient Records regulations: The Federal rules restrict any use of the information to criminally investigate or prosecute any alcohol or drug abuse patient.[facility] the event this information is protected by the Federal Confidentiality of Alcohol and Drug Abuse Patient Records regulations: The Federal rules restrict any use of the information to criminally investigate or prosecute any alcohol or drug abuse patient.[facility] the event this information is protected by the Federal Confidentiality of Alcohol and Drug Abuse Patient Records regulations: The Federal rules restrict any use of the information to criminally investigate or prosecute any alcohol or drug abuse patient.[facility] the event this information is protected by the Federal Confidentiality of Alcohol and Drug Abuse Patient Records regulations: The Federal rules restrict any use of the information to criminally investigate or prosecute any alcohol or drug abuse patient.[facility] the event this information is protected by the Federal Confidentiality of Alcohol and Drug Abuse Patient Records regulations: The Federal rules restrict any use of the information to criminally investigate or prosecute any alcohol or drug abuse patient.[facility] the event this information is protected by the Federal Confidentiality of Alcohol and Drug Abuse Patient Records regulations: The Federal rules restrict any use of the information to criminally investigate or prosecute any alcohol or drug abuse patient.[facility] the event this information is protected by the Federal Confidentiality of Alcohol and Drug Abuse Patient Records regulations: The Federal rules restrict any use of the information to criminally investigate or prosecute any alcohol or drug abuse patient.[facility] the event this information is protected by the Federal Confidentiality of Alcohol and Drug Abuse Patient Records regulations: The Federal rules restrict any use of the information to criminally investigate or prosecute any alcohol or drug abuse patient.[facility] the event this information is protected by the Federal Confidentiality of Alcohol and Drug Abuse Patient Records regulations: The Federal rules restrict any use of the information to criminally investigate or prosecute any alcohol or drug abuse patient.[facility] the event this information is protected by the Federal Confidentiality of Alcohol and Drug Abuse Patient Records regulations: The Federal rules restrict any use of the information to criminally investigate or prosecute any alcohol or drug abuse patient.[facility] the event this information is protected by the Federal Confidentiality of Alcohol and Drug Abuse Patient Records regulations: The Federal rules restrict any use of the information to criminally investigate or prosecute any alcohol or drug abuse patient.[facility] the event this information is protected by the Federal Confidentiality of Alcohol and Drug Abuse Patient Records regulations: The Federal rules restrict any use of the information to criminally investigate or prosecute any alcohol or drug abuse patient.[facility] the event this information is protected by the Federal Confidentiality of Alcohol and Drug Abuse Patient Records regulations: The Federal rules restrict any use of the information to criminally investigate or prosecute any alcohol or drug abuse patient.[facility] the event this information is protected by the Federal Confidentiality of Alcohol and Drug Abuse Patient Records regulations: The Federal rules restrict any use of the information to criminally investigate or prosecute any alcohol or drug abuse patient.[facility] the event this information is protected by the Federal Confidentiality of Alcohol and Drug Abuse Patient Records regulations: The Federal rules restrict any use of the information to criminally investigate or prosecute any alcohol or drug abuse patient.[facility] the event this information is protected by the Federal Confidentiality of Alcohol and Drug Abuse Patient Records regulations: The Federal rules restrict any use of the information to criminally investigate or prosecute any alcohol or drug abuse patient.[facility] the event this information is protected by the Federal Confidentiality of Alcohol and Drug Abuse Patient Records regulations: The Federal rules restrict any use of the information to criminally investigate or prosecute any alcohol or drug abuse patient.[facility] the event this information is protected by the Federal Confidentiality of Alcohol and Drug Abuse Patient Records regulations: The Federal rules restrict any use of the information to criminally investigate or prosecute any alcohol or drug abuse patient.[facility] the event this information is protected by the Federal Confidentiality of Alcohol and Drug Abuse Patient Records regulations: The Federal rules restrict any use of the information to criminally investigate or prosecute any alcohol or drug abuse patient.[facility] the event this information is protected by the Federal Confidentiality of Alcohol and Drug Abuse Patient Records regulations: The Federal rules restrict any use of the information to criminally investigate or prosecute any alcohol or drug abuse patient.[facility] the event this information is protected by the Federal Confidentiality of Alcohol and Drug Abuse Patient Records regulations: The Federal rules restrict any use of the information to criminally investigate or prosecute any alcohol or drug abuse patient.[facility] Reason for Visit (unrecogniz ed section and content) Reason Comments Establish Care Reason Comments Ingrown Toenail New Pain Specialty Diagnoses / Procedures Referred By Cm ambriz Referred To Contact Podiatry Diagnoses Ingrown toenail Procedures CONSULT TO PODIATRY OFFICE/OUTPATIENT [facility] 60-74 MINUTES Julio C Washington MD [address] [place] [address] Referral ID Status Reason Start Date Expiration Date V isits Requested Visits Authorized [id number] Closed PCP Requested Referral 02/19/2022 02/19/2023 1 1 Reason Comments Acute Visit right side Reason Comments 6 Month Exam Reason Comments records from outside Reason Comments Consult colonoscopy Specialty Diagnoses / Procedures Referred By Cm ambriz Referred To Contact General Surgery Diagnoses Encounter for screening colonoscopy Symptoms of gastroesophageal reflux Procedures CONSULT TO GENERAL SURGERY OFFICE/OUTPATIENT [facility] 60-74 MINUTES Julio C Washington MD [address] [place] [address] Referral ID Status Reason Start Date Expiration Date V isits Requested Visits Authorized [id number] Closed PCP Requested Referral 08/25/2022 08/25/2023 1 1 Reason Comments Follow Up Reason Comments Yearly Exam Reason Comments Insurance Authorization Ropinirole Reason Comments Glaucoma Suspect Follow Up 24-2 and IOP check Reason Comments Glaucoma Suspect Follow Up Reason Comments Monitor current high risk meds Plaquenil 200 mg Reason Comments Plaquenil Check 400mg daily Reason Onset Date Comments Refill Request 02/28/2025 Reason Comments Primary Open Angle Glaucoma Follow Up Care Teams (unrecognized sec tion and content) Team Status: Active Member Role Status Dates Dr. Melba Philippe MD Primary Care Provider Active Team Status: Inactive Member Role Status Dates Dr. Melba Philippe MD Primary Care Provider Active Start: September 06, 2024 End: September 06, 2024 Dr. Sotero Lambert MD Attending Provider Active Start: September 06, 2024 End: September 06, 2024 Dr. Sotero Lambert MD Referring Provider Active Start: September 06, 2024 End: September 06, 2024 Team Status: Active Member Role Status Dates Dr. Melba Philippe MD Primary Care Provider Active Start: September 06, 2024 Dr. Sotero Lambert MD Attending Provider Active Start: September 06, 2024 Dr. Sotero Lambert MD Referring Provider Active Start: September 06, 2024 Dr. Sotero Lambert MD Other Provider Active Sta rt: September 06, 2024 Team Status: Inactive Member Role Status Dates Dr. Melba Philippe MD Primary Care Provider Active Start: September 27, 2024 End: October 07, 2024 Dr. Sotero Lambert MD Attending Provider Active Start: September 27, 2024 End: October 07, 2024 Dr. Sotero Lambert MD Referring Provider Active Start: September 27, 2024 End: October 07, 2024 Team Status: Active Member Role Status Dates Dr. Melba Philippe MD Primary Care Provider Active Start: September 27, 2024 Dr. Sotero Lambert MD Attending Provider Active Start: September 27, 2024 Dr. Sotero Lambert MD Referring Provider Active Start: September 27, 2024 Dr. Sotero Lambert MD Other Provider Active Sta rt: September 27, 2024 Team Status: Inactive Member Role Status Dates Dr. Melba Philippe MD Primary Care Provider Active Start: October 11, 2024 End: November 04, 2024 Dr. Sotero Lambert MD Attending Provider Active Start: October 11, 2024 End: November 04, 2024 Dr. Sotero Lambert MD Referring Provider Active Start: October 11, 2024 End: November 04, 2024 Team Status: Active Member Role Status Dates Dr. Melba Philippe MD Primary Care Provider Active Start: October 11, 2024 Dr. Sotero Lambert MD Attending Provider Active Start: October 11, 2024 Dr. Sotero Lambert MD Referring Provider Active Start: October 11, 2024 Dr. Sotero Lambert MD Other Provider Active Sta rt: October 11, 2024 Team Status: Inactive Member Role Status Dates Dr. Melba Philippe MD Primary Care Provider Active Start: October 12, 2024 End: October 12, 2024 Dr. Melba Philippe MD Attending Provider Active Start: October 12, 2024 End: October 12, 2024 Dr. Melba Philippe MD Referring Provider Active Start: October 12, 2024 End: October 12, 2024 Team Status: Inactive Member Role Status Dates Dr. Melba Philippe MD Primary Care Provider Active Start: October 28, 2024 End: October 28, 2024 Dr. Melba Philippe MD Attending Provider Active Start: October 28, 2024 End: October 28, 2024 Dr. Melba Philippe MD Referring Provider Active Start: October 28, 2024 End: October 28, 2024 Team Status: Active Member Role Status Dates Dr. Melba Philippe MD Primary Care Provider Active Start: October 28, 2024 Dr. Melba Philippe MD Referring Provider Active Start: October 28, 2024 Dr. Melba Philippe MD Other Provider Active Start: October 28, 2024 Dr. Reji Goldstein MD Attending Provider Active Start: October 28, 2024 Team Status: Inactive Member Role Status Dates Dr. Melba Philippe MD Primary Care Provider Active Start: November 01, 2024 End: November 01, 2024 Dr. Edie Ham MD Attending Provider Active Start: November 01, 2024 End: November 01, 2024 Dr. Edie Ham MD Referring Provider Active Start: November 01, 2024 End: November 01, 2024 Team Status: Inactive Member Role Status Dates Dr. Melba Philippe MD Primary Care Provider Active Start: November 08, 2024 End: November 08, 2024 Dr. Melba Philippe MD Attending Provider Active Start: November 08, 2024 End: November 08, 2024 Dr. Melba Philippe MD Referring Provider Active Start: November 08, 2024 End: November 08, 2024 Team Status: Active Member Role Status Dates Dr. Melba Philippe MD Primary Care Provider Active Start: November 08, 2024 End: November 08, 2024 Dr. Melba Philippe MD Referring Provider Active Start: November 08, 2024 End: November 08, 2024 Dr. Jeronimo Graham MD Attending Provider Active Start: November 08, 2024 End: November 08, 2024 Team Status: Inactive Member Role Status Dates Dr. Melba Philippe MD Primary Care Provider Active Start: November 11, 2024 End: November 11, 2024 Dr. Melba Philippe MD Attending Provider Active Start: November 11, 2024 End: November 11, 2024 Dr. Melba Philippe MD Referring Provider Active Start: November 11, 2024 End: November 11, 2024 Team Status: Inactive Member Role Status Dates Dr. Melba Philippe MD Primary Care Provider Active Start: November 22, 2024 End: November 22, 2024 Dr. Melba Philippe MD Attending Provider Active Start: November 22, 2024 End: November 22, 2024 Dr. Melba Philippe MD Referring Provider Active Start: November 22, 2024 End: November 22, 2024 Team Status: Inactive Member Role Status Dates Dr. Melba Philippe MD Primary Care Provider Active Start: December 08, 2024 End: December 08, 2024 Dr. Melba Philippe MD Referring Provider Active Start: December 08, 2024 End: December 08, 2024 Dr. Hadley Jimenez MD Attending Provider Active Start: December 08, 2024 End: December 08, 2024 Team Status: Inactive Member Role Status Dates Dr. Melba Philippe MD Primary Care Provider Active Start: December 08, 2024 End: December 08, 2024 Dr. Hadley Jimenez MD Attending Provider Active Start: December 08, 2024 End: December 08, 2024 Dr. Hadley Jimenez MD Referring Provider Active Start: December 08, 2024 End: December 08, 2024 Team Status: Inactive Member Role Status Dates Dr. Melba Philippe MD Primary Care Provider Active Start: December 20, 2024 End: December 20, 2024 Dr. Hadley Jimenez MD Attending Provider Active Start: December 20, 2024 End: December 20, 2024 Dr. Hadley Jimenez MD Referring Provider Active Start: December 20, 2024 End: December 20, 2024 Team Status: Active Member Role Status Dates Dr. Melba Philippe MD Primary Care Provider Active Start: December 20, 2024 Dr. Hadley Jimenez MD Attending Provider Active Start: December 20, 2024 Team Status: Active Member Role Status Dates Dr. Melba Philippe MD Primary Care Provider Active Start: August 09, 2024 Dr. Sotero Lambert MD Attending Provider Active Start: August 09, 2024 Dr. Sotero Lambert MD Referring Provider Active Start: August 09, 2024 Dr. Sotero Lambert MD Other Provider Active Sta rt: August 09, 2024 Team Status: Active Member Role Status Dates Dr. Melba Philippe MD Primary Care Provider Active Start: August 23, 2024 Dr. Sotero Lambert MD Attending Provider Active Start: August 23, 2024 Dr. Sotero Lambert MD Referring Provider Active Start: August 23, 2024 Dr. Sotero Lambert MD Other Provider Active Sta rt: August 23, 2024 Team Status: Inactive Member Role Status Dates Dr. Melba Philippe MD Primary Care Provider Active Start: July 26, 2024 End: August 06, 2024 Dr. Sotero Lambert MD Attending Provider Active Start: July 26, 2024 End: August 06, 2024 Dr. Sotero Lambert MD Referring Provider Active Start: July 26, 2024 End: August 06, 2024 Team Status: Active Member Role Status Dates Dr. Melba Philippe MD Primary Care Provider Active Start: July 26, 2024 Dr. Sotero Lambert MD Attending Provider Active Start: July 26, 2024 Dr. Sotero Lambert MD Referring Provider Active Start: July 26, 2024 Dr. Sotero Lambert MD Other Provider Active Sta rt: July 26, 2024 Team Status: Active Member Role Status Dates Dr. Melba Philippe MD Primary Care Provider Active Start: July 19, 2024 Dr. Sotero Lambert MD Attending Provider Active Start: July 19, 2024 Dr. Sotero Lambert MD Referring Provider Active Start: July 19, 2024 Dr. Sotero Lambert MD Other Provider Active Sta rt: July 19, 2024 Team Status: Active Member Role Status Dates Dr. Melba Philippe MD Primary Care Provider Active Start: November 08, 2024 Dr. Melba Philippe MD Attending Provider Active Start: November 08, 2024 Dr. Melba Philippe MD Referring Provider Active Start: November 08, 2024 Team Status: Inactive Member Role Status Dates Dr. Wei Rodriguez MD Primary Care Provider, Referring Provider Active Dr. Melba Philippe MD Attending Provider Active Team Status: Active Member Role Status Dates Dr. Wei Rodriguez MD Primary Care Provi steffanie, Referring Provider, Other Provider Active Dr. Tony Xiong DO Attending Provider Active Team Status: Active Member Role Status Dates Dr. Wei Rodriguez MD Primary Care Provider, Referring Provider Active Dr. Arya Ramirez MD Attending Provider Active Team Status: Inactive Member Role Status Dates Dr. Melba Philippe MD Primary Care Provider, Refer ring Provider Active KYLEE Albert Attending Provider Active Team Status: Active Member Role Status Dates Dr. Melba Philippe MD Primary Care Provider Active Dr. Rikki Dawn MD Attending Provider Active KYLEE Albert Referring Provider Active Team Status: Inactive Member Role Status Dates Dr. Wei Rodriguez MD Primary Care Provi steffanie, Attending Provider, Referring Provider Active Team Status: Inactive Member Role Status Dates Dr. Wei Rodriguez MD Primary Care Provider Active Dr. Edie Ham MD Attending Provider, Referring Provider Active Team Status: Inactive Member Role Status Dates Dr. Melba Philippe MD Primary Care Provider Active KYLEE Albert Attending Provider, Referring Provid er Active Team Status: Inactive Member Role Status Dates Self Referred Attending Provider, Referring Provider A ctive Dr. Melba Philippe MD Primary Care Provider Active Team Status: Inactive Member Role Status Dates Dr. Wei Rodriguez MD Primary Care Provider, Attending Provider Active Team Status: Inactive Member Role Status Dates Dr. Wei Rodriguez MD Primary Care Provider Active Self Referred Attending Provider Active Team Status: Inactive Member Role Status Dates Dr. Melba Philippe MD Primary Care Provider Active Dr. Edie Ham MD Attending Provider, Referring Provider Active Team Status: Active Member Role Status Dates Dr. Wei Rodriguez MD Primary Care Provider Active Dr. Arya Ramirez MD Attending Provider Active Team Status: Active Member Role Status Dates Dr. Wei Rodriguez MD Primary Care Provider Active Dr. Tylor Zuniga MD Attending Provider Active Team Status: Active Member Role Status Dates Dr. Wei Rodriguez MD Primary Care Provi steffanie, Referring Provider, Other Provider Active Dr. Tylor Zuniga MD Attending Provider Active Team Status: Inactive Member Role Status Dates Dr. Melba Philippe MD Primary Care Provider, Refer ring Provider Active KYLEE Carrera Attending Provider Active Team Status: Active Member Role Status Dates Dr. Melba Philippe MD Primary Care Provider Active Dr. Rikki Dawn MD Attending Provider Active Team Status: Inactive Member Role Status Dates Dr. Julio C Washington MD Primary Care Provider Active Dr. Wei Rodriguez MD Admit Provider, Attending Provid er Active Team Status: Inactive Member Role Status Dates Dr. Julio C Washington MD Primary Care Provider Active Dr. Kb Caputo DO Attending Provider, Referrin g Provider Active Team Status: Inactive Member Role Status Dates Dr. Julio C Washington MD Primary Care Provider Active Dr. Wei Rodriguez MD Attending Provider, Referring Pr ovider Active Team Status: Inactive Member Role Status Dates Dr. Kb Caputo DO Attending Provider, Referrin g Provider Active Dr. Wei Rodriguez MD Primary Care Provider Active Team Status: Active Member Role Status Dates Dr. Melba Philippe MD Primary Care Provider Active KYLEE Carrera Attending Provider, Referring Provider Active [employer] Relationship Specialty Start Date End Date Julio C Washington MD [address] [place] [address] PCP - General Family Practice 02/19/22 [employer] Relationship Specialty Start Date End Date Julio C Washington MD [address] [place] [address] PCP - General Family Practice 02/19/22 [employer] Relationship Specialty Start Date End Date Julio C Washington MD [address] [place] [address] PCP - General Family Practice 02/19/22 [employer] Relationship Specialty Start Date End Date Julio C Washington MD [facility] [place] [address] PCP - General Family Medicine 02/19/22 [employer] Relationship Specialty Start Date End Date Julio C Washington MD [address] [place] [address] PCP - General Family Medicine 02/19/22 [employer] Relationship Specialty Start Date End Date Julio C Washington MD [address] [place] [address] PCP - General Family Medicine 02/19/22 [employer] Relationship Specialty Start Date End Date Julio C Washington MD [address] [place] [address] PCP - General Family Medicine 02/19/22 [employer] Relationship Specialty Start Date End Date Julio C Washington MD [address] [place] [address] PCP - General Family Medicine 02/19/22 [employer] Relationship Specialty Start Date End Date Julio C Washington MD [facility] [place] [address] PCP - General Family Medicine 02/19/22 [employer] Relationship Specialty Start Date End Date Julio C Washington MD [address] [place] [address] PCP - General Family Medicine 02/19/22 [employer] Relationship Specialty Start Date End Date Julio C Washington MD [address] [place], [place] [address] PCP - General Family Medicine 02/19/22 Team Status: Active Member Role Status Dates Dr. Julio C Washington MD Primary Care Provider Active Team Status: Active Member Role Status Dates Dr. Julio C Washington MD Primary Care Provider Active Dr. Carol Martinez DO Emergency Provider Active Dr. Kb Whalen MD Admit Provider, Attending Provider Active Team Status: Active Member Role Status Dates Dr. Julio C Washington MD Primary Care Provider Active Dr. Carol Martinez DO Emergency Provider Active Dr. Kb Whalen MD Admit Provi steffanie, Attending Provider, Other Provider Active Team Status: Active Member Role Status Dates Dr. Julio C Washington MD Primary Care Provider Active Dr. Carol Martinez DO Emergency Provider Active Dr. Kb Whalen MD Admit Provider, Other Pro vider Active Dr. Reece Najera MD Attending Provider, Other Provi steffanie Active Team Status: Inactive Member Role Status Dates Dr. Julio C Washington MD Primary Care Provider Active Dr. Carol Martinez DO Emergency Provider Active Dr. Kb Whalen MD Admit Provider, Other Pro vider Active Dr. Reece Najera MD Attending Provider Active Team Status: Active Member Role Status Dates Dr. Julio C Washington MD Primary Care Provider Active Dr. Wei Rodriguez MD Admit Provider, Attending Provid er Active [employer] Relationship Specialty Start Date End Date Wei Rodriguez Chi [address] [place] [address] PCP - General Gerontology 01/20/23 Team Status: Active Member Role Status Dates Dr. Wei Rodriguez MD Primary Care Provider Active [employer] Relationship Specialty Start Date End Date Wei Rodriguez Chi [address] [facility] [address] [place] [address] PCP - General Gerontology 01/20/23 Team Status: Active Member Role Status Dates Dr. Wei Rodriguez MD Primary Care Provi steffanie, Attending Provider, Referring Provider Active Team Status: Active Member Role Status Dates Dr. Wei Rodriguez MD Primary Care Provider, Attending Provider Active [employer] Relationship Specialty Start Date End Date Wei Rodriguez Chi [address] [address] PCP - General Gerontology 01/20/23 Team Status: Inactive Member Role Status Dates Dr. Melba Philippe MD Primary Care Provider Active KYLEE Carrera Attending Provider, Referring Provider Active Team Status: Active Member Role Status Dates Self Referred Attending Provider, Referring Provider A ctive Dr. Melba Philippe MD Primary Care Provider Active [employer] Relationship Specialty Start Date End Date Julio C Washington MD [address] [place] [address] PCP - General Family Medicine 02/19/22 01/19/23 Team Status: Inactive Member Role Status Dates Dr. Wei Rodriguez MD Referring Provider Active Dr. Melba Philippe MD Primary Care Provider, Atten ding Provider Active Team Status: Inactive Member Role Status Dates Dr. Melba Philippe MD Primary Care Provider Active Dr. Kamala Tuttle MD Attending Provider, Referring Pr ovider Active Team Status: Inactive Member Role Status Dates Dr. Melba Philippe MD Primary Care Provider, Refer ring Provider Active Domo Fall PA, PA Attending Provider Active Team Status: Inactive Member Role Status Dates Dr. Melba Philippe MD Primary Care P hiral, Attending Provider, Referring Provider Active Team Status: Inactive Member Role Status Dates Dr. Melba Philippe MD Primary Care Provider Active Dr. Jarett Dickey MD Attending Provider, Referring Provider Active [employer] Relationship Specialty Start Date End Date Melba Philippe MD [address] [place] [address] PCP - General Internal Medicine 11/02/23 [employer] Relationship Specialty Start Date End Date Melba Philippe MD [address] [place] [address] PCP - General Internal Medicine 11/02/23 [employer] Relationship Specialty Start Date End Date Melba Philippe MD [address] [place] [address] PCP - General Internal Medicine 11/02/23 Team Status: Inactive Member Role Status Dates Dr. Melba Philippe MD Primary Care Provider Active Start: January 11, 2025 End: January 11, 2025 Dr. Melba Philippe MD Attending Provider Active Start: January 11, 2025 End: January 11, 2025 Dr. Melba Philippe MD Referring Provider Active Start: January 11, 2025 End: January 11, 2025 Team Status: Inactive Member Role Status Dates Dr. Melba Philippe MD Primary Care Provider Active Start: January 18, 2025 End: January 18, 2025 Dr. Melba Philippe MD Attending Provider Active Start: January 18, 2025 End: January 18, 2025 Dr. Melba Philippe MD Referring Provider Active Start: January 18, 2025 End: January 18, 2025 Team Status: Active Member Role Status Dates Dr. Melba Philippe MD Primary Care Provider Active Start: January 20, 2025 Dr. Tylor Zuniga MD Attending Provider Active S tart: January 20, 2025 Dr. Hadley Jimenez MD Referring Provider Active Start: January 20, 2025 Team Status: Inactive Member Role Status Dates Dr. Melba Philippe MD Primary Care Provider Active Start: January 20, 2025 End: January 20, 2025 Dr. Hadley Jimenez MD Attending Provider Active Start: January 20, 2025 End: January 20, 2025 Dr. Hadley Jimenez MD Referring Provider Active Start: January 20, 2025 End: January 20, 2025 Team Status: Active Member Role Status Dates Dr. Melba Philippe MD Primary Care Provider Active Start: January 21, 2025 Dr. Hadley Jimenez MD Referring Provider Active Start: January 21, 2025 Dr. Hadley Jimenez MD Other Provider Active Star t: January 21, 2025 Dr. Tylor Zuniga MD Attending Provider Active S tart: January 21, 2025 Team Status: Inactive Member Role Status Dates Dr. Melba Philippe MD Primary Care Provider Active Start: January 26, 2025 End: January 26, 2025 Dr. Melba Philippe MD Referring Provider Active Start: January 26, 2025 End: January 26, 2025 KYLEE Higginbotham Attending Provider Active Sta rt: January 26, 2025 End: January 26, 2025 Team Status: Inactive Member Role Status Dates Dr. Melba Philippe MD Primary Care Provider Active Start: February 09, 2025 End: February 09, 2025 Dr. Melba Philippe MD Referring Provider Active Start: February 09, 2025 End: February 09, 2025 CLARISA BenitezC Attending Provider Active Start: February 09, 2025 End: February 09, 2025 [employer] Relationship Specialty Start Date End Date Melba Philippe MD [address] [place], [place] [id number] PCP - General Internal Medicine 11/02/23 [employer] Relationship Specialty Start Date End Date Melba Philippe MD [address] [place] [id number] PCP - General Internal Medicine 11/02/23 Team Status: Active Member Role/Relationship Status Dates Dr. Melba Philippe MD Primary Care Provider Active Team Status: Inactive Member Role/Relationship Status Dates Dr. Melba Philippe MD Primary Care Provider Active Start: November 22, 2024 End: November 22, 2024 Dr. Melba Philippe MD Attending Provider Active Start: November 22, 2024 End: November 22, 2024 Dr. Melba Philippe MD Referring Provider Active Start: November 22, 2024 End: November 22, 2024 Team Status: Active Member Role/Relationship Status Dates Dr. Melba Philippe MD Primary Care Provider Active Start: November 22, 2024 Dr. Melba Philippe MD Referring Provider Active Start: November 22, 2024 Dr. Pratik Vasquez DO Attending Provider Active S tart: November 22, 2024 Team Status: Inactive Member Role/Relationship Status Dates Dr. Melba Philippe MD Primary Care Provider Active Start: December 08, 2024 End: December 08, 2024 Dr. Melba Philippe MD Referring Provider Active Start: December 08, 2024 End: December 08, 2024 Dr. Hadley Jimenez MD Attending Provider Active Start: December 08, 2024 End: December 08, 2024 Team Status: Inactive Member Role/Relationship Status Dates Dr. Melba Philippe MD Primary Care Provider Active Start: December 08, 2024 End: December 08, 2024 Dr. Hadley Jimenez MD Attending Provider Active Start: December 08, 2024 End: December 08, 2024 Dr. Hadley Jimenez MD Referring Provider Active Start: December 08, 2024 End: December 08, 2024 Team Status: Inactive Member Role/Relationship Status Dates Dr. Melba Philippe MD Primary Care Provider Active Start: December 20, 2024 End: December 20, 2024 Dr. Hadley Jimenez MD Attending Provider Active Start: December 20, 2024 End: December 20, 2024 Dr. Hadley Jimenez MD Referring Provider Active Start: December 20, 2024 End: December 20, 2024 Team Status: Active Member Role/Relationship Status Dates Dr. Melba Philippe MD Primary Care Provider Active Start: December 20, 2024 Dr. Hadley Jimenez MD Attending Provider Active Start: December 20, 2024 Team Status: Inactive Member Role/Relationship Status Dates Dr. Melba Philippe MD Primary Care Provider Active Start: January 11, 2025 End: January 11, 2025 Dr. Melba Philippe MD Attending Provider Active Start: January 11, 2025 End: January 11, 2025 Dr. Melba Philippe MD Referring Provider Active Start: January 11, 2025 End: January 11, 2025 Team Status: Inactive Member Role/Relationship Status Dates Dr. Melba Philippe MD Primary Care Provider Active Start: January 18, 2025 End: January 18, 2025 Dr. Melba Philippe MD Attending Provider Active Start: January 18, 2025 End: January 18, 2025 Dr. Melba Philippe MD Referring Provider Active Start: January 18, 2025 End: January 18, 2025 Team Status: Active Member Role/Relationship Status Dates Dr. Melba Philippe MD Primary Care Provider Active Start: January 20, 2025 Dr. Tylor Zuniga MD Attending Provider Active S tart: January 20, 2025 Dr. Hadley Jimenez MD Referring Provider Active Start: January 20, 2025 Team Status: Inactive Member Role/Relationship Status Dates Dr. Melba Philippe MD Primary Care Provider Active Start: January 20, 2025 End: January 20, 2025 Dr. Hadley Jiemnez MD Attending Provider Active Start: January 20, 2025 End: January 20, 2025 Dr. Hadley Jimenez MD Referring Provider Active Start: January 20, 2025 End: January 20, 2025 Team Status: Active Member Role/Relationship Status Dates Dr. Melba Philippe MD Primary Care Provider Active Start: January 21, 2025 Dr. Hadley Jimenez MD Referring Provider Active Start: January 21, 2025 Dr. Hadley Jimenez MD Other Provider Active Star t: January 21, 2025 Dr. Tylor Zuniga MD Attending Provider Active S tart: January 21, 2025 Team Status: Inactive Member Role/Relationship Status Dates Dr. Melba Philippe MD Primary Care Provider Active Start: January 26, 2025 End: January 26, 2025 Dr. Melba Philippe MD Referring Provider Active Start: January 26, 2025 End: January 26, 2025 KYLEE Higginbotham Attending Provider Active Sta rt: January 26, 2025 End: January 26, 2025 Team Status: Inactive Member Role/Relationship Status Dates Dr. Melba Philippe MD Primary Care Provider Active Start: February 09, 2025 End: February 09, 2025 Dr. Melba Philippe MD Referring Provider Active Start: February 09, 2025 End: February 09, 2025 ZABRINA Benitez Attending Provider Active Start: February 09, 2025 End: February 09, 2025 Team Status: Inactive Member Role/Relationship Status Dates Dr. Melba Philippe MD Primary Care Provider Active Start: March 14, 2025 End: March 14, 2025 Dr. Melba Philippe MD Referring Provider Active Start: March 14, 2025 End: March 14, 2025 KYLEE Wild Attending Provider Active St art: March 14, 2025 End: March 14, 2025 Goals (unrecognized section and content) Goals may be documented in a n alternate sectionGoals may be documented in an alternate sectionGoals may be documented in an alternate sectionGoals may be documented in an alternate sectionGoals may be documented in an alternate sectionGoals may be documented in an alternate sectionGoals may be documented in an alternate sectionGoals may be documented in an alternate sectionGoals may be documented in an alternate sectionGoals may be documented in an alternate sectionGoals may be documented in an alternate sectionGoals may be documented in an alternate sectionGoals may be documented in an alternate sectionGoals may be documented in an alternate sectionGoals may be documented in an alternate sectionGoals may be documented in an alternate sectionGoals may be documented in an alternate sectionGoals may be documented in an alternate section INFORMATION SOURCE (unrecogn ized section and content) DATE CREATED AUTHOR 02/26/[address] [facility] DATE CREATED AUTHOR AUTHOR'S PRAVEENIZ ATION 03/09/2025 [facility] FOR RECORDS PERTAINING TO PATIENTS WHO ARE OR HAVE BEEN ENROLLED IN A CHEMICAL DEPENDENCY/SUBSTANCEABUSE PROGRAM, SOME INFORMATION MAY BE OMITTED. This clinical summary was aggregated from multiple sources. Caution should be exercised in using it in the provision of clinical care. This summary normalizes information from multiple sources, and as a consequence, information in this document may materially change the coding, format and clinical context of patient data. In addition, data may be omitted in some cases. CLINICAL DECISIONS SHOULD BE BASED ON THE PRIMARY CLINICAL RECORDS. [facility] [employer] provides no warranty or guarantee of the accuracy or completeness of information in this document.
== END | disposition home or self-care (01) ==
LOC: LAB 12:20
PROVIDERS: PCP Internal Medicine; Referring Provider Student in an Organized Health Care Education/Training Program; Visit Provider Student in an Organized Health Care Education/Training Program
DX: R06.02 Shortness of breath (principal); I10 Essential (primary) hypertension
CPT/HCPCS: 36415; 80048; 83880; 85025; 85379

== ENCOUNTER → 2025-03-15 | Outpatient (CLI) | payer MEDICARE, SELFPAY ==
--- NOTE | 2025-03-15 08:09 | CT_ITS ---
PROCEDURE: CTA CHEST W/WO CONTRAST 03/15/2025 REASON FOR EXAM: RULE OUT PE, SHORTNESS OF BREATH TECHNIQUE: CTA CHEST W/WO CONTRAST Multiplanar Sagittal and Coronal images were obtained. 3D post processing was performed CONTRAST: Isovue 370 VOLUME: 100 mL One or more dose reduction techniques were used (e.g., Automated exposure control, adjustment of the mA and/or kV according to patient size, use of iterative reconstruction technique). CTA CHEST W/WO CONTRAST Multiplanar Sagittal and Coronal images were obtained. 3D post processing was performed CONTRAST: Isovue 370 VOLUME: 100 mL RADIATION DOSE SUMMARY: CTDlvol: 10 mGy DLP: 442.08 mGycm COMPARISON: None FINDINGS: Hardware: None Lymph nodes: Small benign-appearing mediastinal lymph nodes. Heart: Minimal coronary artery calcification. Thoracic Aorta: No thoracic aortic aneurysm or dissection. Atherosclerotic calcification of the aortic arch. Pulmonary Vessels: No evidence of pulmonary embolism. Lungs and Airways: Increased interstitial markings at the lung bases suggestive of scarring. Mild right apical scarring. Pleura: No pleural effusion. Upper Abdomen: Unremarkable Bones: Bone windows are unremarkable. 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 CT/CTA Chest W/WO Contrast IMPRESSION: No evidence of pulmonary embolism. Mild pulmonary scarring. Minimal coronary artery calcification. Reading Location: [place] [id number]
== END | disposition home or self-care (01) ==
LOC: CT 08:08
PROVIDERS: PCP Internal Medicine; Referring Provider Student in an Organized Health Care Education/Training Program; Visit Provider Student in an Organized Health Care Education/Training Program
DX: R06.02 Shortness of breath (principal); R60.9 Edema, unspecified
CPT/HCPCS: 71275; Q9967

== ENCOUNTER → 2025-04-26 | Outpatient (CLI) | payer MEDICARE, SELFPAY ==
[2025-04-26 15:26] LABS: Hematocrit 37.3 % (37-47); Hemoglobin 11.9 g/dL (12.0-15.0); Immature Granulocytes Count 0.010 X10^3/uL (0.0-0.0); Mean Corp Hgb Conc 31.9 g/dL (32-36); Mean Corpuscular Volume 91.0 fL (81-99); Mean Platelet Vol. 11.6 fl (6.2-12.0); NRBC Flagged by Analyzer 0 % (0-5); Platelet Count 172 K/mm3 (150-450); RBC Distribution Width CV 13.3 % (11.6-14.6); RBC Distribution Width SD 44.8 fl (35.1-43.9); Red Blood Count 4.10 M/mm3 (4.2-5.4); White Blood Count 6.3 K/mm3 (4.4-11.0)
[2025-04-26 15:50] LABS: AST(SGOT) 31 U/L (<=31); Alanine Aminotransfer ALT/SGPT 24 U/L (<=34); Albumin, Serum 4.1 g/dL (3.4-4.8); Alkaline Phosphatase 59 U/L (35-104); Anion Gap 12 (5-15); BUN 33 mg/dL (4-19); BUN/Creat Ratio 29.2 RATIO (10-20); Calcium,Total 9.3 mg/dL (7.6-11.0); Carbon Dioxide 22.9 mmol/L (21.0-32.0); Chloride 106 mmol/L (98-108); Globulin 2.5 g/dL (2.2-4.2); Glucose 85 mg/dL (70-99); Potassium 4.3 mmol/L (3.3-5.1)
== END | disposition home or self-care (01) ==
LOC: MTLAB 10:49
PROVIDERS: PCP Internal Medicine; Referring Provider Internal Medicine Rheumatology; Visit Provider Internal Medicine Rheumatology
DX: M05.79 Rheumatoid arthritis with rheumatoid factor of multiple sites without organ or systems involvement (principal); M79.7 Fibromyalgia; Z79.899 Other long term (current) drug therapy
CPT/HCPCS: 36415; 80053; 85025

== ENCOUNTER → 2025-05-19 | Outpatient (CLI) | payer MEDICARE, SELFPAY | END | disposition home or self-care (01) | LOC: PSN 09:13 | PROVIDERS: PCP Internal Medicine; Referring Provider Nurse Practitioner Family; Visit Provider Nurse Practitioner Family | DX: R06.09 Other forms of dyspnea (principal) | CPT/HCPCS: 94060; 94726; 94729 ==

== ENCOUNTER → 2025-05-29 | Outpatient (CLI) | payer MEDICARE, SELFPAY | END | disposition home or self-care (01) | LOC: SL 13:10 | PROVIDERS: PCP Internal Medicine; Referring Provider Nurse Practitioner Family; Visit Provider Nurse Practitioner Family | DX: R06.02 Shortness of breath (principal) | CPT/HCPCS: 94762 ==

== ENCOUNTER → 2025-05-29 | Outpatient (CLI) | payer MEDICARE, SELFPAY ==
[2025-05-29 13:00] VITALS: PULSE 111; PULSE 112; PULSE 113; PULSE 78; PULSE 82; PULSE 96; O2SAT 91; O2SAT 92; O2SAT 94; O2SAT 96
--- NOTE | 2025-05-31 12:30 | PCM.PSN.6M ---
PSN 6 Minute Walk Test 6 Minute Walk Test 6 Minute Walk Test: 6 Minute Walk Test PSN:6-Minute Walk Test Start: 05/29/25 13:00 Freq: Status: Active Protocol: [id number].6MINW Document 05/29/25 13:00 GERALD (Rec: 05/29/25 13:04 GERALD [id number]) 6 Minute Walk Test Date Performed 05/29/25 Time Performed 12:30 Height 5 ft 3 in Weight: 180 lb Weight in Pounds [address]: Teri Serrnao Assistive device None used: Pre-test Oxygen Delivery Room Air Method Pulse Ox (%) 96 Pulse Rate (60-100 78 beats/min) Dyspnea Yves Scale ( 0 0-10) Exertion Yves Scale 6 (6-20) 1st minute Oxygen Delivery Room Air Method Pulse Ox (%) 94 Pulse Rate (60-100 96 beats/min) 2nd minute Oxygen Delivery Room Air Method Pulse Ox (%) 92 Pulse Rate (60-100 113 H beats/min) 3rd minute Oxygen Delivery Room Air Method Pulse Ox (%) 91 Pulse Rate (60-100 111 H beats/min) 4th minute Oxygen Delivery Room Air Method Pulse Ox (%) 91 Pulse Rate (60-100 111 H beats/min) 5th minute Oxygen Delivery Room Air Method Pulse Ox (%) 91 Pulse Rate (60-100 112 H beats/min) 6th minute Oxygen Delivery Room Air Method Pulse Ox (%) 92 Pulse Rate (60-100 112 H beats/min) Dyspnea Yves Scale ( 3 0-10) Exertion Yves Scale 14 (6-20) Post-test Oxygen Delivery Room Air Method Pulse Ox (%) 96 Pulse Rate (60-100 82 beats/min) Full Laps Walked 21 Partial Lap, Number 27 of Tiles Walked Total Distance 1266 Walked (ft) Interpretation Interpretation: The patient ambulated 1266 feet over the course of 6 minutes beginning on room air without assistive devices. Pretesting oxygen saturation was noted to be 96% on room air. With ambulation, the chinedu oxygen saturation was 91%. This represents a significant exertional oxygen desaturation, consistent with a pulmonary limitation to exercise tolerance. Recommendations Recommendations: There is no indication for the use of supplemental oxygen at this time. However, close interval follow-up is recommended, given the degree of oxygen desaturation noted during this study.
== END | disposition home or self-care (01) ==
LOC: PSN 12:14
PROVIDERS: PCP Internal Medicine; Referring Provider Nurse Practitioner Family; Visit Provider Nurse Practitioner Family
DX: R06.02 Shortness of breath (principal); R06.09 Other forms of dyspnea
CPT/HCPCS: 94618; 94762

== ENCOUNTER → 2025-06-02 | Outpatient (CLI) | payer MEDICARE, SELFPAY ==
--- NOTE | 2025-06-02 12:38 | RAD_ITS ---
PROCEDURE: LUMBAR SPINE 2 OR 3 VIEWS 06/02/2025 REASON FOR EXAM: LOW BACK PAIN TECHNIQUE: Procedure Code: RADSPLL Modality: DX Procedure: LUMBAR SPINE 2 OR 3 VIEWS COMPARISON: 05/06/2023 FINDINGS: BONES: No fracture or focal osseous lesion. Stable grade 1 anterolisthesis of L5 on S1. Moderate lumbar dextroscoliosis, which is unchanged. DISC/DEGENERATIVE CHANGES: Disc space narrowing and vertebral endplate osteophytes throughout, with no significant change. L4-L5 and L5-S1 facet arthropathy. SOFT TISSUES: No acute abnormality seen. RAD/Lumbar Spine 2 or 3 Views IMPRESSION: DEGENERATIVE CHANGES OF THE LUMBAR SPINE. Reading Location: [id number]
--- NOTE | 2025-06-02 13:27 | RAD_ITS ---
PROCEDURE: THORACIC SPINE MIN 4 VIEWS 06/02/2025 REASON FOR EXAM: THORACIC BACK PAIN TECHNIQUE: Procedure Code: [id number] Modality: DX Procedure: THORACIC SPINE MIN 4 VIEWS COMPARISON: None. FINDINGS: Vertebrae: No acute bony abnormalities. Discs: Multilevel degenerate changes predominantly at the mid thoracic spine of disc space narrowing, sclerotic endplates and marginal osteophytes. Alignment: Normal alignment. Left-sided curvature of the thoracic spine. RAD/Thoracic Spine Min 4 Views IMPRESSION: No acute injuries of the thoracic spine. Reading Location: [id number]
--- NOTE | 2025-06-02 13:27 | RAD_ITS ---
PROCEDURE: RIBS EUGENE MIN 4V W/PA CHEST 06/02/2025 REASON FOR EXAM: THORACIC WALL STRAIN AND PAIN TECHNIQUE: Procedure Code: RADRIBB Modality: DX Procedure: RIBS EUGENE MIN 4V W/PA CHEST COMPARISON: April 2024. FINDINGS: Hardware and support lines: None. Heart: Negative. Lungs: Negative for infiltrates, or pulmonary edema. Pleura: No pleural thickening. No pleural effusion. Mediastinum and aorta: Negative for hilar adenopathy. Mildly tortuous thoracic aorta. Bones: Old right-sided rib fractures. No acute fractures. Old left rib fractures. No definitive acute left rib fractures. Age-appropriate degenerative changes of the spine. Other: Remainder of the exam negative. RAD/Ribs Eugene Min 4V w/PA Chest IMPRESSION: Negative for acute cardiopulmonary disease. Old rib fractures. No acute rib fractures. Negative for pneumothorax. Reading Location: [id number]
== END | disposition home or self-care (01) ==
PROVIDERS: PCP Internal Medicine; Referring Provider Physician Assistant Surgical; Visit Provider Physician Assistant Surgical
DX: S29.011A Strain of muscle and tendon of front wall of thorax, initial encounter (principal); X58.XXXA Exposure to other specified factors, initial encounter; M54.6 Pain in thoracic spine; M54.50 Low back pain, unspecified
CPT/HCPCS: 71111; 72074; 72100

== ENCOUNTER 2025-06-09 09:02 | Observation (INO) | payer MEDICARE, SELFPAY ==
[2025-06-09 09:02] VITALS: BP 110/95; PULSE 90; RESP 14; TEMP 36.9; O2SAT 94; BMI 31.1
--- NOTE | 2025-06-09 09:37 | EX.ED.GENINJ ---
HPI History of Present Illness Chief Complaint: Nausea/Vomiting/Diarrhea Narrative Narrative: Chief complaint and HPI: 80-year-old female with past medical history of GERD, HTN, CKD presents for evaluation of nausea, vomiting, diarrhea. Patient states approximately 2 weeks ago she obtained a muscle strain to the lumbar back on the right. She was seen at urgent care in which she got x-rays performed which were negative. She states she is continue to have back pain. On 06/06 she developed nonbilious/nonbloody emesis and nonbloody diarrhea. She has intermittent abdominal pain. She denies any fever, chills, shortness of breath, chest pain, dysuria. Review of systems: See HPI Medications: As listed on the chart Allergies: As listed on the chart PFSH: Per chart Vital signs: As listed on the chart. Reviewed. Physical exam: Gen: A&O x3, NAD Head: Normocephalic, atraumatic Eyes: No sclera icterus, conjunctiva clear ENT: Moist mucous membranes Neck: Trachea midline CV: RRR, no murmurs, no peripheral edema Resp: Lungs CTA BL, no w/r/c GI: Abd soft, non-distended, non-tender, no r/r/g Musc: Full ROM, no deformity, no midline spinal tenderness, tenderness to palpation of the bilateral paraspinal musculature of the lumbar spine-worse on the right compared to the left, no signs of external trauma or infection Skin: Warm, dry Neuro: Alert, oriented, grossly intact, sensation intact Psych: Cooperative, appropriate mood and affect [facility] Medical History Nasal congestion Depression Nail abnormality Vitamin D deficiency Chest pain CKD (chronic kidney disease) stage 3, GFR 30-59 ml/min Venous insufficiency Dyspnea on exertion Encounter for medication monitoring Surgical wound dehiscence 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 exposed Traumatic open wound of right lower leg with delayed healing History of DVT of lower extremity Cellulitis Post-thrombotic syndrome Abnormal facial hair Localized swelling of back Acute sinusitis, unspecified Colon cancer screening Nonscarring hair loss Odynophagia Foot pain Lumbar radiculopathy Migraines (09/07/1954) Bone fracture (01/02/23) Edema Numbness in feet Rheumatoid arthritis GERD (gastroesophageal reflux disease) Osteopenia High cholesterol Carpal tunnel syndrome History of blood transfusion Bicondylar fracture of right tibia Restless leg syndrome Hypertension Home Medications ?Medication ?Instructions ?Recorded ?Last Taken ?Type pantoprazole 40 mg tablet,delayed 40 mg PO DAILY 11/25/23 Unknown History release (Protonix) hydroxychloroquine 200 mg tablet 200 mg PO BID 06/08/24 Unknown History latanoprost 0.005 % eye drops 1 drp ophthalmic (eye) QHS 12/08/24 Unknown History cholecalciferol (vitamin D3) 1,250 1,250 mcg PO QWEEK #14 caps 01/18/25 Unknown Rx mcg (50,000 unit) capsule risedronate 150 mg tablet 150 mg PO QMONTH #7 tabs 01/18/25 Unknown Rx ropinirole 2 mg tablet,extended 4 mg (2 x 2 mg) PO TID 3 months 04/24/25 Unknown Rx release 24 hr #540 tabs tizanidine 2 mg capsule 2 mg PO Q8H PRN muscle spasticity 06/06/25 Unknown Rx #20 caps amlodipine 2.5 mg tablet 2.5 mg PO QDAY #90 tabs 06/07/25 Unknown Rx Allergy/AdvReac Type Severity Reaction Status Date / Time clopidogrel AdvReac Intermediate Other Verified 06/06/25 13:32 diclofenac AdvReac Intermediate Other Verified 06/06/25 13:32 hydrochlorothiazide AdvReac Intermediate Other Verified 06/06/25 13:32 pregabalin (From Lyrica) AdvReac Intermediate Other Verified 06/06/25 13:32 baclofen AdvReac Mild Other Verified 06/06/25 13:32 carbamazepine (From Tegretol) AdvReac Mild Other Verified 06/06/25 13:32 gabapentin AdvReac Mild Other Verified 06/06/25 13:32 methylphenidate AdvReac Mild Other Verified 06/06/25 13:32 temazepam AdvReac Mild Other Verified 06/06/25 13:32 cyclobenzaprine AdvReac Unknown Sleep Verified 06/06/25 13:32 issues/headache duloxetine AdvReac Depresion, Verified 06/06/25 13:32 lethargy, weight gain, worse pain calm forte AdvReac Mild Other Uncoded 06/06/25 13:32 Family History Sister Hx of blood clots Mother Hypertension Other Cancer Heart disease Surgical History History of endoscopy History of hysterectomy (03/13/15) History of cataract surgery (03/21/14) History of colonoscopy (08/22/14) History of appendectomy (03/11/1962) History of dilatation and curettage Hx of foot surgery History of carpal tunnel surgery History of uterine suspension procedure Hx of cataract surgery H/O: hysterectomy Social History household members: none current occupational status: retired current occupation: [employer] Smoking Status: Former smoker quit date: 09/07/79 Electronic Cigarette Use: not used alcohol intake: current details: 2 x a week substance use type: does not use what type of physical activity do you participate in: walking EXAM Physical Exam Const Vital Signs: 06/09/25 09:02 06/09/25 11:02 06/09/25 11:33 Temperature 98.4 F 98.4 F Temperature Source Oral Pulse Rate 90 80 90 Respiratory Rate 14 16 14 Blood Pressure 110/95 H 112/80 110/95 H Blood Pressure Mean 100 90 100 Pulse Ox 94 98 94 Oxygen Delivery Method Room Air MDM MDM MDM Narrative Medical decision making narrative: 80-year-old female with past medical history of GERD, HTN, CKD presents for evaluation of nausea, vomiting, diarrhea. Patient states approximately 2 weeks ago she obtained a muscle strain to the lumbar back on the right. She was seen at urgent care in which she got x-rays performed which were negative. She states she is continue to have back pain. On 06/06 she developed nonbilious/nonbloody emesis and nonbloody diarrhea. She has intermittent abdominal pain. On presentation, patient no acute distress. Nontoxic-appearing. Vital stable. See physical exam findings. Differential diagnosis includes but is not limited to viral gastroenteritis, myofascial spasm/back strain, diverticulitis, pancreatitis, appendicitis, urolithiasis, UTI. NS bolus, Zofran, morphine ordered for symptoms. Laboratory workup ordered including CT abdomen pelvis. CBC without leukocytosis. Patient has baseline anemia. CMP shows UMESH with a creatinine of 2.2 and a BUN of 57. Patient's creatinine was normal on 04/26/2025. No transaminitis. Lipase unremarkable. Given patient's creatinine being elevated, I was unable to use contrast for the CT. CT abdomen pelvis without contrast shows diarrheal state with mild thickening of the descending colon with some pericolonic stranding suggestive of colitis. No bowel obstruction. No free air. Small sliding hiatal hernia. Gallbladder sludge. Decreased bone mineralization and degenerative changes of the lumbar spine. Given patient has no leukocytosis, I suspect this is more viral colitis. No antibiotics ordered. Patient will warrant admission for UMESH. UA positive for UTI. Rocephin ordered. Patient was updated of all results and confirmed understand the plan. Hospitalist accepted admission. Impression: 1. Viral gastroenteritis/colitis 2. UTI 3. Dehydration with UMESH Lab Data Labs: Laboratory Results - last 24 hr 06/09/25 06/09/25 09:45 10:17 WBC 10.4 RBC 3.94 L Hgb 11.8 L Hct 34.9 L MCV 88.6 MCH 29.9 MCHC 33.8 RDW Std Deviation 45.4 H RDW Coeff of Charles 13.9 Plt Count 168 MPV 10.8 Immature Gran % (Auto) 0.300 Neut % (Auto) 81.7 H Lymph % (Auto) 7.[address] [place] % (Auto) 10.3 H Eos % (Auto) 0.2 Baso % (Auto) 0.2 Absolute Neuts (auto) 8.5 H Absolute Lymphs (auto) 0.76 L Nucleated RBC % 0 Sodium 134 Potassium 4.4 Chloride 102 Carbon Dioxide 17.8 L Anion Gap 14 BUN 57 H Creatinine 2.20 H Estim Creat Clear Calc 20.03 L Est GFR (MDRD) Non-Af 22 L BUN/Creatinine Ratio 26.0 H Glucose 94 Calcium 8.5 Total Bilirubin 0.69 AST 20 ALT 19 Alkaline Phosphatase 61 Total Protein 5.7 L Albumin 3.7 Globulin 2.0 L Albumin/Globulin Ratio 1.9 Lipase 20 Urine Color Yellow Urine Clarity Sl. Cloudy Urine pH 5.0 Ur Specific [place] 1.030 Urine Protein 30 H Urine Glucose (UA) Normal Urine Ketones 5 H Urine Occult Blood 250 H Urine Nitrite Negative Urine Bilirubin 3 H Urine Urobilinogen Normal Ur Leukocyte Esterase 500 H Urine RBC 0-5 SEEN Urine WBC 5-10 SEEN Ur Squamous Epith Cells 5-10 SEEN Calcium Oxalate Crystal 1+ Urine Bacteria 2+ Fine Granular Casts 0-5 SEEN Urine Mucus 0 SEEN Radiography Diagnostic Testing: Clinical Impression(s) from Imaging Studies Abdomen/Pelvis CT 06/09/25 10:45 IMPRESSION: 1. Diarrheal state. Mild thickening of the descending colon with some pericolonic stranding suggestive of colitis. No bowel obstruction, free air1 or abscess seen. 2. Gallbladder sludge 3. Small sliding hiatus hernia 4. Decreased bone mineralization. Degenerative changes lumbar spine. Reading Location: [id number] Discharge Plan Triage Chief Complaint: Nausea/Vomiting/Diarrhea ED Provider: David Tillman Dx/Rx/DC Orders Prescriptions: No Action hydroxychloroquine 200 mg tablet 200 mg PO BID Rx Instructions: on hold while on cipro per pt pantoprazole [Protonix] 40 mg tablet,delayed release (DR/EC) 40 mg PO DAILY cholecalciferol (vitamin D3) 1,250 mcg (50,000 unit) capsule 1,250 mcg PO QWEEK Qty: 14 1RF risedronate 150 mg tablet 150 mg PO QMONTH Qty: 7 1RF Rx Instructions: administer at least 30 minutes before the first food or drink of the day other than water. latanoprost 0.005 % drops 1 drp ophthalmic (eye) QHS ropinirole 2 mg tablet extended release 24 hr 4 mg PO TID 90 Days Qty: 540 2RF tizanidine 2 mg capsule 2 mg PO Q8H PRN (Reason: muscle spasticity) Qty: 20 1RF amlodipine 2.5 mg tablet 2.5 mg PO QDAY Qty: 90 3RF Primary Care Provider: Gabriel Philippe Referrals: Gabriel Philippe MD [Primary Care Provider, Internal Medicine] Print Language: Macedonian
[2025-06-09] MEDS: 0.9% Normal Saline (1000mL) 1,000 ML 999 ML IV (09:41)
[2025-06-09 09:56] LABS: Hematocrit 34.9 % (37-47); Hemoglobin 11.8 g/dL (12.0-15.0); Immature Granulocytes Count 0.030 X10^3/uL (0.0-0.0); Mean Corp Hgb Conc 33.8 g/dL (32-36); Mean Corpuscular Volume 88.6 fL (81-99); Mean Platelet Vol. 10.8 fl (6.2-12.0); NRBC Flagged by Analyzer 0 % (0-5); Platelet Count 168 K/mm3 (150-450); RBC Distribution Width CV 13.9 % (11.6-14.6); RBC Distribution Width SD 45.4 fl (35.1-43.9); Red Blood Count 3.94 M/mm3 (4.2-5.4); White Blood Count 10.4 K/mm3 (4.4-11.0)
[2025-06-09 10:21] LABS: Mucous, Urine 0 SEEN /hpf (<or=2+)
[2025-06-09 10:22] LABS: Color, Urine Yellow (Yellow); Glucose, Dipstick Normal (Normal); Ketone-Dipstick 5 mg/dl (Negative); Leukocyte Esterase-Dipstick 500 /ul (Negative); Nitrite-Dipstick Negative (Negative); Occult Blood-Urine 250 /ul (Negative); Protein-Dipstick 30 mg/dl (Negative); Specific Gravity, Urine 1.030 (1.002-1.030)
[2025-06-09 10:23] LABS: Urine Bilirubin Dipstick 3 mg/dL (Negative)
[2025-06-09 10:25] LABS: Lipase 20 U/L (13-75)
[2025-06-09 10:29] LABS: Squamous Epithelial Cells - UA 5-10 SEEN /hpf (5-10)
[2025-06-09 10:30] LABS: Calcium Oxalate Crystals Ur 1+ /hpf (<or=2+); Fine Granular Cast- Urine 0-5 SEEN /lpf (0-5)
[2025-06-09 10:31] LABS: Red Blood Cells-Urine 0-5 SEEN /hpf (0-5)
[2025-06-09 10:39] LABS: AST(SGOT) 20 U/L (<=31); Alanine Aminotransfer ALT/SGPT 19 U/L (<=34); Albumin, Serum 3.7 g/dL (3.4-4.8); Alkaline Phosphatase 61 U/L (35-104); Anion Gap 14 (5-15); BUN 57 mg/dL (4-19); BUN/Creat Ratio 26.0 RATIO (10-20); Calcium,Total 8.5 mg/dL (7.6-11.0); Carbon Dioxide 17.8 mmol/L (21.0-32.0); Chloride 102 mmol/L (98-108); Estimated Creatinine Clearance 20.03 ml/min (50-250); Globulin 2.0 g/dL (2.2-4.2); Glucose 94 mg/dL (70-99); Potassium 4.4 mmol/L (3.3-5.1)
--- NOTE | 2025-06-09 10:45 | CT_ITS ---
PROCEDURE: ABDOMEN/PELVIS WITHOUT CONT 06/09/2025 REASON FOR EXAM: NAUSEA, VOMITING, DIARRHEA TECHNIQUE: Procedure Code: CTABDPEL Modality: CT Procedure: ABDOMEN/PELVIS WITHOUT CONT Noncontrast technique limits evaluation of the abdominal and pelvic viscera. Coronal and Sagittal reconstruction series were provided. One or more dose reduction techniques were used (e.g., Automated exposure control, adjustment of the mA and/or kV according to patient size, use of iterative reconstruction technique). RADIATION DOSE SUMMARY: CTDlvol: 20 mGy DLP: 919 mGycm COMPARISON: None FINDINGS: Lung bases: Scarring in the lung bases. Liver: Normal. Gallbladder: Gallbladder sludge is present. Spleen: Normal Pancreas: Normal Adrenals: Normal Kidneys: Normal Bladder: Normal Reproductive Organs: Atrophic uterus. No adnexal mass. Bowel: Small sliding hiatus hernia. Small bowel is normal. The colon shows fluid contents. Mild stranding around the mid descending colon. A few colonic diverticula are seen without diverticulitis. Appendix: The appendix is not identified. There is no inflammatory process identified in the right lower quadrant to suggest appendicitis. Lymph nodes: None appear enlarged. Vasculature: Mild atherosclerosis without aneurysm. Peritoneum / Retroperitoneum: No free air, free fluid or mass. Bones: Decreased bone mineralization. Disc space narrowing, marginal endplate spurring and lower lumbar facet hypertrophy. CT/Abdomen/Pelvis without Cont IMPRESSION: 1. Diarrheal state. Mild thickening of the descending colon with some pericol onic stranding suggestive of colitis. No bowel obstruction, free air1 or abscess seen. 2. Gallbladder sludge 3. Small sliding hiatus hernia 4. Decreased bone mineralization. Degenerative changes lumbar spine. Reading Location: [id number]
[2025-06-09 11:02] VITALS: BP 112/80; PULSE 80; RESP 16; O2SAT 98
[2025-06-09 11:33] VITALS: BP 110/95; PULSE 90; RESP 14; TEMP 36.9; O2SAT 94
--- NOTE | 2025-06-09 11:39 | ED.RN ---
hole in bag of orginal dose of rocephin - pharmacy called, sending new bag
--- NOTE | 2025-06-09 11:43 | PCM.HP.STD ---
HPI - General General Date of Admission: 06/09/25 Date of Service: 06/09/25 Chief Complaint: Diarrhea HPI Narrative DERIC BOO, is a 80 F who presents with diarrhea. Patient symptoms started 3 days prior to her admission. In addition to the diarrhea patient did complain of lower abdominal cramps. She also did develop nausea and vomited 1 time a day prior to her admission. Elected to present to the emergency department due to worsening symptoms.Workup in the emergency department demonstrated presence of abnormal urinalysis consistent with UTI patient was also found to have acute kidney injury. Started on IV fluid admitted to regular nursing floor for further management [facility] Medical History Nasal congestion Depression Nail abnormality Vitamin D deficiency Chest pain CKD (chronic kidney disease) stage 3, GFR 30-59 ml/min Venous insufficiency Dyspnea on exertion Encounter for medication monitoring Surgical wound dehiscence 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 exposed Traumatic open wound of right lower leg with delayed healing History of DVT of lower extremity Cellulitis Post-thrombotic syndrome Abnormal facial hair Localized swelling of back Acute sinusitis, unspecified Colon cancer screening Nonscarring hair loss Odynophagia Foot pain Lumbar radiculopathy Migraines (09/07/1954) Bone fracture (01/02/23) Edema Numbness in feet Rheumatoid arthritis GERD (gastroesophageal reflux disease) Osteopenia High cholesterol Carpal tunnel syndrome History of blood transfusion Bicondylar fracture of right tibia Restless leg syndrome Hypertension Home Medications ?Medication ?Instructions ?Recorded ?Last Taken ?Type pantoprazole 40 mg tablet,delayed 40 mg PO DAILY 11/25/23 Unknown History release (Protonix) hydroxychloroquine 200 mg tablet 200 mg PO BID 06/08/24 Unknown History latanoprost 0.005 % eye drops 1 drp ophthalmic (eye) QHS 12/08/24 Unknown History cholecalciferol (vitamin D3) 1,250 1,250 mcg PO QWEEK #14 caps 01/18/25 Unknown Rx mcg (50,000 unit) capsule risedronate 150 mg tablet 150 mg PO QMONTH #7 tabs 01/18/25 Unknown Rx ropinirole 2 mg tablet,extended 4 mg (2 x 2 mg) PO TID 3 months 04/24/25 Unknown Rx release 24 hr #540 tabs tizanidine 2 mg capsule 2 mg PO Q8H PRN muscle spasticity 06/06/25 Unknown Rx #20 caps amlodipine 2.5 mg tablet 2.5 mg PO QDAY #90 tabs 06/07/25 Unknown Rx Allergy/AdvReac Type Severity Reaction Status Date / Time clopidogrel AdvReac Intermediate Other Verified 06/06/25 13:32 diclofenac AdvReac Intermediate Other Verified 06/06/25 13:32 hydrochlorothiazide AdvReac Intermediate Other Verified 06/06/25 13:32 pregabalin (From Lyrica) AdvReac Intermediate Other Verified 06/06/25 13:32 baclofen AdvReac Mild Other Verified 06/06/25 13:32 carbamazepine (From Tegretol) AdvReac Mild Other Verified 06/06/25 13:32 gabapentin AdvReac Mild Other Verified 06/06/25 13:32 methylphenidate AdvReac Mild Other Verified 06/06/25 13:32 temazepam AdvReac Mild Other Verified 06/06/25 13:32 cyclobenzaprine AdvReac Unknown Sleep Verified 06/06/25 13:32 issues/headache duloxetine AdvReac Depresion, Verified 06/06/25 13:32 lethargy, weight gain, worse pain calm forte AdvReac Mild Other Uncoded 06/06/25 13:32 Family History Sister Hx of blood clots Mother Hypertension Other Cancer Heart disease Surgical History History of endoscopy History of hysterectomy (03/13/15) History of cataract surgery (03/21/14) History of colonoscopy (08/22/14) History of appendectomy (03/11/1962) History of dilatation and curettage Hx of foot surgery History of carpal tunnel surgery History of uterine suspension procedure Hx of cataract surgery H/O: hysterectomy Social History (Updated 06/09/25 @ 12:29 by Blanca Sullivan) household members: none current occupational status: retired current occupation: [employer] current gender identity: female Smoking Status: Former smoker quit date: 09/07/79 Electronic Cigarette Use: not used alcohol intake: current details: 2 x a week substance use type: does not use what type of physical activity do you participate in: walking ROS ROS Narrative GENERAL: denies fever, chills, night sweats, weight loss, anorexia HEENT: denies headache, sinus congestion, or drainage, dysphagia RESPIRATORY: denies cough, sputum production, CARDIAC: denies chest pain, palpitations, orthopnea, PND GASTROINTESTINAL: Nausea vomiting and diarrhea GENITOURINARY: denies dysuria, urgency, frequency, heamaturia EXTREMITY: denies swelling MUSCULOSKELETAL: denies current joint pain or tenderness NEUROLOGIC: denies focal numbness, weakness, tingling HEMATOLOGIC: denies easy bruising and/or hemorrhage INTEGUMENT: denies rashes PSYCHIATRIC: denies suicidal or homicidal ideation Vital Signs Vital Signs Vital Signs: 06/09/25 09:02 06/09/25 11:02 06/09/25 11:33 Temperature 98.4 F 98.4 F Temperature Source Oral Pulse Rate 90 80 90 Respiratory Rate 14 16 14 Blood Pressure 110/95 H 112/80 110/95 H Blood Pressure Mean 100 90 100 Pulse Ox 94 98 94 Oxygen Delivery Method Room Air Weight Weight: 79.6 kg Body Mass Index (BMI) 31.1 Physical Exam Narrative GENERAL: cooperative HEENT: Atraumatic; normocephalic EYES; Anicteric, Normal Conjunctiva NECK; supple, normal thyroid, RESPIRATORY: Diminished to auscultation CARDIOVASCULAR: Regular S1 S2, GI: soft, normoactive bowel sounds, : No Renal angle tenderness; EXTREMITIES: No edema, no clubbing, MUSCULOSKELETAL: no muscle wasting NEURO: Awake; no lateralizing signs. SKIN: No Rash PSYCH; Flat affect Results Lab / Micro Data 06/09/25 09:45 06/09/25 09:45 Labs: Laboratory Results - last 24 hr 06/09/25 09:45: WBC 10.4, RBC 3.94 L, Hgb 11.8 L, Hct 34.9 L, MCV 88.6, MCH 29.9, MCHC 33.8, RDW Std Deviation 45.4 H, RDW Coeff of Charles 13.9, Plt Count 168, MPV 10.8, Immature Gran % (Auto) 0.300, Neut % (Auto) 81.7 H, Lymph % (Auto) 7.3 L, [place] % (Auto) 10.3 H, Eos % (Auto) 0.2, Baso % (Auto) 0.2, Absolute Neuts (auto) 8.5 H, Absolute Lymphs (auto) 0.76 L, Nucleated RBC % 0, Sodium 134, Potassium 4.4, Chloride 102, Carbon Dioxide 17.8 L, Anion Gap 14, BUN 57 H, Creatinine 2.20 H, Estim Creat Clear Calc 20.03 L, Est GFR (MDRD) Non-Af 22 L, BUN/Creatinine Ratio 26.0 H, Glucose 94, Calcium 8.5, Total Bilirubin 0.69, AST 20, ALT 19, Alkaline Phosphatase 61, Total Protein 5.7 L, Albumin 3.7, Globulin 2.0 L, Albumin/Globulin Ratio 1.9, Lipase 20 06/09/25 10:17: Urine Color Yellow, Urine Clarity Sl. Cloudy, Urine pH 5.0, Ur Specific [place] 1.030, Urine Protein 30 H, Urine Glucose (UA) Normal, Urine Ketones 5 H, Urine Occult Blood 250 H, Urine Nitrite Negative, Urine Bilirubin 3 H, Urine Urobilinogen Normal, Ur Leukocyte Esterase 500 H, Urine RBC 0-5 SEEN, Urine WBC 5-10 SEEN, Ur Squamous Epith Cells 5-10 SEEN, Calcium Oxalate Crystal 1+, Urine Bacteria 2+, Fine Granular Casts 0-5 SEEN, Urine Mucus 0 SEEN Imaging Radiology Impression Abdomen/Pelvis CT 06/09/25 10:45 IMPRESSION: 1. Diarrheal state. Mild thickening of the descending colon with some pericolonic stranding suggestive of colitis. No bowel obstruction, free air1 or abscess seen. 2. Gallbladder sludge 3. Small sliding hiatus hernia 4. Decreased bone mineralization. Degenerative changes lumbar spine. Reading Location: [id number] Assessment & Plan Assessment/Plan (1) Acute gastroenteritis: (2) UMESH (acute kidney injury): PLAN: Plan Patient is an 80-year-old lady presented with nausea vomiting and diarrhea found to have UMESH as well as UTI on admission 1. Acute gastroenteritis ? Suspected to be viral in etiology patient has been admitted to regular nursing floor for symptom management. Also requested for stool studies to rule out infectious etiology 2. Acute kidney injury ? Patient baseline creatinine from 04/26/2025 was 1.1. Creatinine on admission was 2.20 patient has been started on Ringer's lactate with repeat BMP ordered for a.m. 3. Rheumatoid arthritis ? Patient is on hydroxychloroquine did continue 4. GERD ? Patient has PPI 5. Pure restless leg syndrome Patient is on ropinirole?continue home dose 6. Chronic back pain with muscle spasms ? Patient is on tizanidine discontinued 7. Hypertension ? Blood pressure controlled, home medications continued with dose adjustment as needed 8. DVT prophylaxis ? On enoxaparin Time spent in the patient's overall evaluation,decision-making process, review of diagnostic data, adjustment of management, discussion with other providers, nursing nursing and ancillary staff involved in patient's care documentation, 75 Minutes Advance planning; did discuss with the patient regarding advanced directives as well as CODE STATUS. Did explain the various scenarios involved ( FULL CODE, DNR CCA, DNR CCA with no intubation, and DNR CC and what each meant) patient elected to be DNR CCA no intubation. Order was placed. Time spent on discussion 16 minutes. Charges/Coding Multi Select Codes Visit Charges Visit Charges: 31941 Init Hosp Hospitalists' Procedures Procedures: 09172 Advncd Care Plan 30 Min
[2025-06-09 12:27] VITALS: BMI 31.1
[2025-06-09 12:45] VITALS: BP 97/63; PULSE 79; RESP 17; TEMP 36.6; O2SAT 99
[2025-06-09] MEDS: Lactated Ringers 1,000 ML 150 ML IV ×2 (13:27→19:38)
[2025-06-09] MEDS: 0.9% Saline Lock 10 ML Syringe IV (13:31)
--- NOTE | 2025-06-09 13:53 | NURSING ---
Report give to HORACIO Lim
[2025-06-09 15:00] VITALS: BP 110/72; PULSE 70; RESP 17; TEMP 36.8; O2SAT 97
[2025-06-09] MEDS: Latanoprost 0.005% 1 Bottle 1 DRP OPHTHALMIC (20:47)
[2025-06-09] MEDS: ROPINIROLE HCL 2 MG 4 MG PO (20:49)
[2025-06-09 21:00] VITALS: BP 95/52; PULSE 81; RESP 16; TEMP 36.8; O2SAT 97
[2025-06-10] MEDS: Lactated Ringers 1,000 ML 150 ML IV ×3 (01:36→16:24)
[2025-06-10 03:00] VITALS: BP 107/53; PULSE 73; RESP 16; TEMP 36.9; O2SAT 95
[2025-06-10 04:56] LABS: Hematocrit 32.4 % (37-47); Hemoglobin 10.5 g/dL (12.0-15.0); Immature Granulocytes Count 0.020 X10^3/uL (0.0-0.0); Mean Corp Hgb Conc 32.4 g/dL (32-36); Mean Corpuscular Volume 90.8 fL (81-99); Mean Platelet Vol. 10.7 fl (6.2-12.0); NRBC Flagged by Analyzer 0 % (0-5); POSITIVE DIFFERENTIAL YES; Platelet Count 144 K/mm3 (150-450); RBC Distribution Width CV 14.2 % (11.6-14.6); RBC Distribution Width SD 47.5 fl (35.1-43.9); Red Blood Count 3.57 M/mm3 (4.2-5.4); White Blood Count 3.7 K/mm3 (4.4-11.0)
[2025-06-10 05:41] LABS: Anion Gap 12 (5-15); BUN 46 mg/dL (4-19); BUN/Creat Ratio 34.0 RATIO (10-20); Calcium,Total 7.7 mg/dL (7.6-11.0); Carbon Dioxide 16.6 mmol/L (21.0-32.0); Chloride 108 mmol/L (98-108); Estimated Creatinine Clearance 32.89 ml/min (50-250); Glucose 78 mg/dL (70-99); Magnesium 2.0 mg/dL (1.5-2.2); Potassium 4.2 mmol/L (3.3-5.1)
[2025-06-10] MEDS: ROPINIROLE HCL 2 MG 4 MG PO ×3 (05:49→20:50)
[2025-06-10 06:00] VITALS: BMI 35.2
--- NOTE | 2025-06-10 07:42 | PN.HOSP_ITS ---
Reason for Visit Chief Complaint: Diarrhea Subjective Subjective Patient seen reports having experienced 1 loose bowel movement during the night. Objective Data Objective Data Vital Signs: Vital Signs Temp Pulse Resp BP Pulse Ox O2 Del Method 98.5 F 73 16 107/53 L 95 Room Air 06/10/25 03:00 06/10/25 03:00 06/10/25 03:00 06/10/25 03:00 06/10/25 03:00 06/10/25 03:00 Oxygen Delivery Method Room Air Weight: 90.2 kg Body Mass Index (BMI) 35.2 Intake & Output: Intake and Output for Last 24 Hours 06/08/25 06/09/25 06/10/25 23:59 23:59 23:59 Intake Total 2036. 955 / 955 Balance 5 / 955 Lab / Micro Data 06/10/25 04:18 06/10/25 04:18 Labs: Laboratory Results - last 24 hr 06/09/25 09:45: WBC 10.4, RBC 3.94 L, Hgb 11.8 L, Hct 34.9 L, MCV 88.6, MCH 29.9, MCHC 33.8, RDW Std Deviation 45.4 H, RDW Coeff of Charles 13.9, Plt Count 168, MPV 10.8, Immature Gran % (Auto) 0.300, Neut % (Auto) 81.7 H, Lymph % (Auto) 7.3 L, [place] % (Auto) 10.3 H, Eos % (Auto) 0.2, Baso % (Auto) 0.2, Absolute Neuts (auto) 8.5 H, Absolute Lymphs (auto) 0.76 L, Nucleated RBC % 0, Sodium 134, Potassium 4.4, Chloride 102, Carbon Dioxide 17.8 L, Anion Gap 14, BUN 57 H, C reatinine 2.20 H, Estim Creat Clear Calc 20.03 L, Est GFR (MDRD) Non-Af 22 L, B UN/Creatinine Ratio 26.0 H, Glucose 94, Calcium 8.5, Total Bilirubin 0.69, AST 20, ALT 19, Alkaline Phosphatase 61, Total Protein 5.7 L, Albumin 3.7, Globulin 2.0 L, Albumin/Globulin Ratio 1.9, Lipase 20 06/09/25 10:17: Urine Color Yellow, Urine Clarity Sl. Cloudy, Urine pH 5.0, Ur Specific [place] 1.030, Urine Protein 30 H, Urine Glucose (UA) Normal, Urine Ketones 5 H, Urine Occult Blood 250 H, Urine Nitrite Negative, Urine Bilirubin 3 H, Urine Urobilinogen Normal, Ur Leukocyte Esterase 500 H, Urine RBC 0-5 SEEN, Urine WBC 5-10 SEEN, Ur Squamous Epith Cells 5-10 SEEN, Calcium Oxalate Crystal 1+, Urine Bacteria 2+, Fine Granular Casts 0-5 SEEN, Urine Mucus 0 SEEN 06/10/25 04:18: WBC 3.7 L, RBC 3.57 L, Hgb 10.5 L, Hct 32.4 L, MCV 90.8, MCH 29.4, MCHC 32.4, RDW Std Deviation 47.5 H, RDW Coeff of Charles 14.2, Plt Count 144 L, MPV 10.7, Immature Gran % (Auto) 0.500, Neut % (Auto) 64.7, Lymph % (Auto) 16.1 L, [place] % (Auto) 15.0 H, Eos % (Auto) 3.2, Baso % (Auto) 0.5, Absolute Neuts (auto) 2.4, Absolute Lymphs (auto) 0.60 L, Nucleated RBC % 0, Sodium 136, Potassium 4.2, Chloride 108, Carbon Dioxide 16.6 L, Anion Gap 12, BUN 46 H, C reatinine 1.34 H, Estim Creat Clear Calc 32.89 L, Est GFR (MDRD) Non-Af 40 L, B UN/Creatinine Ratio 34.0 H, Glucose 78, Calcium 7.7, Phosphorus 2.2 L, Magnesium 2.0 Radiography Diagnostic Testing: Radiology Impression Abdomen/Pelvis CT 06/09/25 10:45 IMPRESSION: 1. Diarrheal state. Mild thickening of the descending colon with some pericolonic stranding suggestive of colitis. No bowel obstruction, free air1 or abscess seen. 2. Gallbladder sludge 3. Small sliding hiatus hernia 4. Decreased bone mineralization. Degenerative changes lumbar spine. Reading Location: [facility] Physical Exam Narrative GENERAL: cooperative HEENT: Atraumatic; normocephalic EYES; Anicteric, Normal Conjunctiva NECK; supple, normal thyroid, RESPIRATORY: Diminished to auscultation CARDIOVASCULAR: Regular S1 S2, GI: soft, normoactive bowel sounds, : No Renal angle tenderness; EXTREMITIES: No edema, no clubbing, MUSCULOSKELETAL: no muscle wasting NEURO: Awake; no lateralizing signs. SKIN: No Rash PSYCH; Flat affect Assessment & Plan Assessment/Plan (1) Acute gastroenteritis: (2) UMESH (acute kidney injury): PLAN: Plan Patient is an 80-year-old lady presented with nausea vomiting and diarrhea found to have UMESH as well as UTI on admission 1. Acute gastroenteritis ? Suspected to be viral in etiology patient has been admitted to regular nursing floor for symptom management. Also requested for stool studies to rule out infectious etiology ? 06/10/2025 frequency of diarrhea decreasing. 2. Acute kidney injury ? Patient baseline creatinine from 04/26/2025 was 1.1. Creatinine on admission was 2.20 patient has been started on Ringer's lactate with repeat BMP ordered for a.m. ? 06/10/2025 patient creatinine down to 1.34. Will continue IV fluid repeat BMP in a.m. 3. Rheumatoid arthritis ? Patient is on hydroxychloroquine did continue 4. GERD ? Patient has PPI 5. Pure restless leg syndrome Patient is on ropinirole?continue home dose 6. Chronic back pain with muscle spasms ? Patient is on tizanidine discontinued 7. Hypertension ? Blood pressure controlled, home medications continued with dose adjustment as needed 8. Mild thrombocytopenia ? Patient platelet count did drop from 160-144 will continue with monitoring and if it drops further we will discontinue Lovenox 9. DVT prophylaxis ? On enoxaparin Time spent in the patient's overall evaluation,decision-making process, review of diagnostic data, adjustment of management, discussion with other providers, nursing nursing and ancillary staff involved in patient's care documentation, 45 Minutes Charges/Coding Visit Charges Inpatient E&M: 98030 Subs Hosp L2
[2025-06-10 09:00] VITALS: BP 126/60; PULSE 80; RESP 18; TEMP 36.6; O2SAT 95
--- NOTE | 2025-06-10 10:49 | CASEMGMT ---
Dx:viral gastroenteritis, UMESH LACE:2 6-Clicks:21 Medical record reviewed and patient evaluated for identification of discharge planning needs. Based on this review, at this time criteria are not present to indicate a need for discharge planning. Will remain available to assist with discharge planning needs as identified or requested.Noted pt is SBA, no therapy ordered at this time.
[2025-06-10] MEDS: Na Biphos/Potassium Phosphate PACKET 1 PACKET PO ×2 (11:56→20:57)
[2025-06-10 15:00] VITALS: BP 130/61; PULSE 74; RESP 18; TEMP 36.7; O2SAT 100
[2025-06-10] MEDS: Latanoprost 0.005% 1 Bottle 1 DRP OPHTHALMIC (20:50)
[2025-06-11] MEDS: Lactated Ringers 1,000 ML 150 ML IV ×2 (00:07→05:06)
[2025-06-11 03:50] VITALS: BP 114/58; PULSE 66; RESP 16; TEMP 36.9; O2SAT 97
[2025-06-11] MEDS: ROPINIROLE HCL 2 MG 4 MG PO (05:06)
[2025-06-11 05:20] VITALS: BMI 35.2
[2025-06-11 07:15] LABS: Hematocrit 36.0 % (37-47); Hemoglobin 11.7 g/dL (12.0-15.0); Immature Granulocytes Count 0.030 X10^3/uL (0.0-0.0); Mean Corp Hgb Conc 32.5 g/dL (32-36); Mean Corpuscular Volume 89.3 fL (81-99); Mean Platelet Vol. 10.9 fl (6.2-12.0); NRBC Flagged by Analyzer 0 % (0-5); Platelet Count 199 K/mm3 (150-450); RBC Distribution Width CV 13.5 % (11.6-14.6); RBC Distribution Width SD 44.4 fl (35.1-43.9); Red Blood Count 4.03 M/mm3 (4.2-5.4); White Blood Count 4.1 K/mm3 (4.4-11.0)
--- NOTE | 2025-06-11 07:43 | PCM.PN.HOSP ---
Reason for Visit Chief Complaint: Diarrhea Subjective Subjective Patient creatinine improved to 1.09. No recurrence of of her diarrhea. Plan is for patient to be discharged Objective Data Objective Data Vital Signs: Vital Signs Temp Pulse Resp BP Pulse Ox O2 Del Method 98.4 F 66 16 114/58 L 97 Room Air 06/11/25 03:50 06/11/25 03:50 06/11/25 03:50 06/11/25 03:50 06/11/25 03:50 06/11/25 03:50 Oxygen Delivery Method Room Air Weight: 90.2 kg Body Mass Index (BMI) 35.2 Intake & Output: Intake and Output for Last 24 Hours 06/09/25 06/10/25 06/11/25 23:59 23:59 23:59 Intake Total 2036. 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 SKIN: No Rash PSYCH; Flat affect Assessment & Plan Assessment/Plan (1) Acute gastroenteritis: (2) UMESH (acute kidney injury): PLAN: Plan Patient is an 80-year-old lady presented with nausea vomiting and diarrhea found to have UMESH as well as UTI on admission 1. Acute gastroenteritis ? Suspected to be viral in etiology patient has been admitted to regular nursing floor for symptom management. Also requested for stool studies to rule out infectious etiology ? 06/10/2025 frequency of diarrhea decreasing. ? 06/11/2025; diarrhea resolved 2. Acute kidney injury ? Patient baseline creatinine from 04/26/2025 was 1.1. Creatinine on admission was 2.20 patient has been started on Ringer's lactate with repeat BMP ordered for a.m. ? 06/10/2025 patient creatinine down to 1.34. Will continue IV fluid repeat BMP in a.m. ? 06/11/2025; acute kidney injury resolved 3. Rheumatoid arthritis ? Patient is on hydroxychloroquine did continue 4. GERD ? Patient has PPI 5. Pure restless leg syndrome Patient is on ropinirole?continue home dose 6. Chronic back pain with muscle spasms ? Patient is on tizanidine discontinued 7. Hypertension ? Blood pressure controlled, home medications continued with dose adjustment as needed 8. Mild thrombocytopenia ? Patient platelet count did drop from 160-144 will continue with monitoring and if it drops further we will discontinue Lovenox 9. DVT prophylaxis ? On enoxaparin Time spent in the patient's overall evaluation,decision-making process, review of diagnostic data, adjustment of management, discussion with other providers, nursing nursing and ancillary staff involved in patient's care documentation, 35 Minutes Charges/Coding Visit Charges Inpatient E&M: 80169 Subs Hosp L2
[2025-06-11 08:12] LABS: Anion Gap 12 (5-15); BUN 18 mg/dL (4-19); BUN/Creat Ratio 16.7 RATIO (10-20); Calcium,Total 8.4 mg/dL (7.6-11.0); Carbon Dioxide 19.0 mmol/L (21.0-32.0); Chloride 110 mmol/L (98-108); Estimated Creatinine Clearance 43.15 ml/min (50-250); Glucose 91 mg/dL (70-99); Potassium 3.7 mmol/L (3.3-5.1)
--- NOTE | 2025-06-11 08:28 | PCM.DC.SUM ---
Providers Date of Admission: 06/09/25 Date of Discharge: 06/11/25 Primary Care Physician: Dr. Gabriel Philippe MD Reason For Visit: VIRAL GASTROENTERITIS, UMESH Diagnosis Discharge Diagnosis (1) Acute gastroenteritis: Status: Acute Code(s): K52.9 - Noninfective gastroenteritis and colitis, unspecified (2) UMESH (acute kidney injury): Status: Acute Code(s): N17.9 - Acute kidney failure, unspecified Plan Patient is an 80-year-old lady presented with nausea vomiting and diarrhea found to have UMESH as well as UTI on admission 1. Acute gastroenteritis ? Suspected to be viral in etiology patient has been admitted to regular nursing floor for symptom management. Also requested for stool studies to rule out infectious etiology ? 06/10/2025 frequency of diarrhea decreasing. ? 06/11/2025; diarrhea resolved 2. Acute kidney injury ? Patient baseline creatinine from 04/26/2025 was 1.1. Creatinine on admission was 2.20 patient has been started on Ringer's lactate with repeat BMP ordered for a.m. ? 06/10/2025 patient creatinine down to 1.34. Will continue IV fluid repeat BMP in a.m. ? 06/11/2025; acute kidney injury resolved 3. Rheumatoid arthritis ? Patient is on hydroxychloroquine did continue 4. GERD ? Patient has PPI 5. Pure restless leg syndrome Patient is on ropinirole?continue home dose 6. Chronic back pain with muscle spasms ? Patient is on tizanidine discontinued 7. Hypertension ? Blood pressure controlled, home medications continued with dose adjustment as needed 8. Mild thrombocytopenia ? Patient platelet count did drop from 160-144 will continue with monitoring and if it drops further we will discontinue Lovenox 9. DVT prophylaxis ? On enoxaparin Time spent in the patient's overall evaluation,decision-making process, review of diagnostic data, adjustment of management, discussion with other providers, nursing nursing and ancillary staff involved in patient's care documentation, 35 Minutes Medications at Discharge Home Medications pantoprazole 40 mg tablet,delayed release (Protonix) 40 mg PO DAILY 11/25/23 hydroxychloroquine 200 mg tablet 200 mg PO BID 06/08/24 latanoprost 0.005 % eye drops 1 drp ophthalmic (eye) QHS 12/08/24 cholecalciferol (vitamin D3) 1,250 mcg (50,000 unit) capsule 1,250 mcg PO QWEEK #14 caps 01/18/25 risedronate 150 mg tablet 150 mg PO QMONTH #7 tabs 01/18/25 ropinirole 2 mg tablet,extended release 24 hr 4 mg (2 x 2 mg) PO TID 3 months #540 tabs 04/24/25 tizanidine 2 mg capsule 2 mg PO Q8H PRN muscle spasticity #20 caps 06/06/25 amlodipine 2.5 mg tablet 2.5 mg PO QDAY #90 tabs 06/07/25 potassium, sodium phosphates 280 mg-160 mg-250 mg oral powder packet 1 packet PO BID #20 ea 06/11/25 Physical Exam Narrative GENERAL: cooperative HEENT: Atraumatic; normocephalic EYES; Anicteric, Normal Conjunctiva NECK; supple, normal thyroid, RESPIRATORY: Diminished to auscultation CARDIOVASCULAR: Regular S1 S2, GI: soft, normoactive bowel sounds, : No Renal angle tenderness; EXTREMITIES: No edema, no clubbing, MUSCULOSKELETAL: no muscle wasting NEURO: Awake; no lateralizing signs. SKIN: No Rash PSYCH; Flat affect Weight / BMI Weight Weight: 90.2 kg Body Mass Index (BMI) 35.2 ABG / Lab / Microbiology Data 06/11/25 06:25 06/11/25 06:25 Laboratory: Laboratory Results - last 24 hr 06/11/25 06:25: WBC 4.1 L, RBC 4.03 L, Hgb 11.7 L, Hct 36.0 L, MCV 89.3, MCH 29.0, MCHC 32.5, RDW Std Deviation 44.4 H, RDW Coeff of Charles 13.5, Plt Count 199, MPV 10.9, Immature Gran % (Auto) 0.700, Neut % (Auto) 52.2, Lymph % (Auto) 30.3, [place] % (Auto) 13.9 H, Eos % (Auto) 2.7, Baso % (Auto) 0.2, Absolute Neuts (auto) 2.1, Absolute Lymphs (auto) 1.24, Nucleated RBC % 0, Sodium 142, Potassium 3.7, Chloride 110 H, Carbon Dioxide 19.0 L, Anion Gap 12, BUN 18, Creatinine 1.09, Estim Creat Clear Calc 43.15 L, Est GFR (MDRD) Non-Af 51 L, BUN/Creatinine Ratio 16.7, Glucose 91, Calcium 8.4 Microbiology: Microbiology 06/09/25 10:17 Urine, Clean Catch Urine Culture - Preliminary GNR 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 Mixed Gram Positive Organisms D/C Instructions Discharge Activity: Return to Normal Activity Call your doctor if you observe: Fever of 101 or Higher, Shortness of breath, Fainting spells and Chest pain DC O2, CPAP, BIPAP Needs Home O2 Discharge instructions: No Meaningful Use Info Meaningful Use Meaningful Use Diagnoses (Choose all that apply): None applicable Discharge Plan Admission Admit Date/Time: 06/09/25 11:42 Attending Provider: Srikanth Green Primary Care Provider: Gabriel Philippe Discharge Orders/Prescriptions Prescriptions: New potassium, sodium phosphates 280-160-250 mg Powder In Packet 1 packet PO BID Qty: 20 0RF Continued hydroxychloroquine 200 mg tablet 200 mg PO BID Rx Instructions: on hold while on cipro per pt pantoprazole [Protonix] 40 mg tablet,delayed release (DR/EC) 40 mg PO DAILY cholecalciferol (vitamin D3) 1,250 mcg (50,000 unit) capsule 1,250 mcg PO QWEEK Qty: 14 1RF risedronate 150 mg tablet 150 mg PO QMONTH Qty: 7 1RF Rx Instructions: administer at least 30 minutes before the first food or drink of the day other than water. latanoprost 0.005 % drops 1 drp ophthalmic (eye) QHS ropinirole 2 mg tablet extended release 24 hr 4 mg PO TID 90 Days Qty: 540 2RF tizanidine 2 mg capsule 2 mg PO Q8H PRN (Reason: muscle spasticity) Qty: 20 1RF amlodipine 2.5 mg tablet 2.5 mg PO QDAY Qty: 90 3RF Referrals / Follow Up: Gabriel Philippe MD [Primary Care Provider, Internal Medicine] - Within 2 Weeks Disposition Disposition (needs filled in before D/C Order can be placed): Home, Self Care Charges/Coding Visit Charges Inpatient E&M: 86082 Disch Hosp >30min
[2025-06-11 08:33] VITALS: BP 148/64; PULSE 68; RESP 15; TEMP 36.6; O2SAT 97
[2025-06-11] MEDS: Na Biphos/Potassium Phosphate PACKET 1 PACKET PO (09:46)
[2025-06-11 10:12] VITALS: BP 148/64; PULSE 68; RESP 15; TEMP 36.7; O2SAT 97
[2025-06-11 10:57] VITALS: BP 144/54; PULSE 78; RESP 16; TEMP 36.9; O2SAT 95
--- OUTSIDE RECORDS SUMMARY | 2025-09-06 10:00 | XMS RPT_ITS ---
Author Name Auto Generated Organization OHIP Care Team Providers Care Range Master Name Role Phone KAYLEEN MCGRAW Attending Physician Unavailable KAYLEEN MCGRAW Attending Physician Unavailable OLEGHE, EFEWONGBE B Primary Care Physician Unava SHANNON Velez Attending Physician Unavailable OLEGHE, EFEWONGBE B Primary Care Physician Unava SHANNON Velez Attending Physician Unavailable SELF Unavailable Unavailable OLEGHE, EFEWONGBE B Primary Care Physician Unava SHANNON Velez Attending Physician Unavailable OLEGHE, EFEWONGBE B Primary Care Physician Unava ilRONAL Anderson Attending Physician Unavailabl e OLEGHE, EFEWONGBE B Primary Care Physician Unava ilable RONAL KULKARNI Attending Physician Unavailabl e OLEGHE, EFEWONGBE B Primary Care Physician Unava ilSHANNON Osorio Attending Physician Unavailable OLEGHE, EFEWONGBE B Primary Care Physician Unava ilSHANNON Osorio Attending Physician Unavailable PROBLEMS DATE TYPE CONDITION / CODE ATTENDING STATUS [facility] 09/06/2025 Active Glaucoma suspect of both eyes / H40.003(ICD-10) RONAL KULKARNI Active [facility] 07/18/2025 Active Optic cupping of both eyes / H47.233(ICD-10) RONAL KULKARNI Active [facility] 07/13/2025 Active Long-term use of Plaquenil / Z79.899(ICD-10) SHANNON CHAU Active [facility] 07/06/2025 Admitting Diagnosis Radiculopathy, lumbar region / M54.16(ICD-10) KAYLEEN MCGRAW [facility] 07/06/2025 Admitting Diagnosis Spondylolisthesis, lumbar region / M43.16(ICD-10) KAYLEEN MCGRAW [facility] 03/07/2025 Active Encounter for long-term (current) use of high-risk medication / Z79.899(ICD-10) SHANNON CHAU Active [facility] 12/29/2024 Active Primary open-ang le glaucoma, bilateral, mild stage / H40.1131(ICD-10) SHANNON CHAU Active [facility] 12/29/2024 Active Pseudophakia of both eyes / Z96.1(ICD-10) SHANNON CHAU [facility] 12/29/2024 Active Presbyopia / H52.4(ICD-10) SHANNON CHAU Active [facility] RESULTS PROGRESS Observed: 09/06/2025 3:24 PM Status: COMPLETED Source: [facility] HNO ID: [id number] Author: RONAL KULKARNI MD Service: ? Author Type: Physician Type: Progress Notes Filed: 09/06/2025 15:32 Note Text: ASSESSMENT/PLAN: 1. Glaucoma suspect both eyes TMAX: Right Eye: 19 mmHg, Left Eye: 20 mmHg PACHS: Right Eye: 572, Left Eye: 563 PREVIOUS LASERS/SURGERIES: None Latanoprost was discontinued last visit 07/18/2025 EYEDROP ADHERENCE: reports missing drops sometimes BACKGROUND GLAUCOMA INFORMATION: Referred by: Dr. Chau Family History: No known family history of glaucoma Trauma: No Steroid Use: recent prednisone use ASA/Anti-coagulation: No Prior Glaucoma Meds, Intolerances, Allergies: has only ever used latanoprost with no side effect MOST RECENT GLAUCOMA TESTING: Visual Field 24-2: Right Eye: normal, Left Eye: enlargement of blind spot OCT RNFL: Right Eye: 72, Left Eye: 69 GONIO: Angle open to SS, 2+ pigmentation both eyes 2. Optic cupping of both eyes - ICD9: 377.14, ICD10: H47.233 - Monitor 3. Long-term use of Plaquenil - ICD9: V58.69, ICD10: Z79.899 - High risk medication use for rheumatoid arthritis, recent testing done by Dr. Chau 4. Pseudophakia of both eyes - ICD9: V43.1, ICD10: Z96.1 - Intraocular lens in good position both eyes Return in 4 to 5 months I have confirmed and edited as necessary the relevant HPI, ophthalmic history, ROS, and the neuro exam findings as obtained by others. I have seen and examined Deric Merida. I have discussed the case and the management of this patient's care with the Resident/Fellow, if applicable. I also have reviewed and agree with the assessment and plan as stated above and agree with all of its relevant components. 36 Observed: 08/30/2025 2:51 PM Status: COMPLETED Source: [employer] [employer]. Patient received a Spreaker message from us about her MRI Lumbar order. She sent a [email or web address] message on 08/11, stating she had one completed in preparation for her visit with Dr. Mcgraw, and she is requesting to know if another one needs preformed. Please advise, I will call the patient and let her know or remove her order from our work queue. Thank you, Maria Isabel hanson/ [facility] Central Scheduling 36 Observed: 07/28/2025 9:52 AM Status: COMPLETED Source: [employer] [facility] Received imaging report for MRI lumbar spine from [facility]. PROGRESS Observed: 07/18/2025 1:47 PM Status: COMPLETED Source: [facility] HNO ID: [id number] Author: RONAL KULKARNI MD Service: ? Author Type: Physician Type: Progress Notes Filed: 07/18/2025 14:31 Note Text: ASSESSMENT/PLAN: 1. Primary open-angle glaucoma, bilateral, mild stage - ICD9: 365.11, 365.71, ICD10: H40.1131 (primary diagnosis) TMAX: Right Eye: 19 mmHg, Left Eye: 20 mmHg PACHS: Right Eye: 572, Left Eye: 563 PREVIOUS LASERS/SURGERIES: None CURRENT GLAUCOMA MED REGIMEN: Current Ophthalmic Meds latanoprost (XALATAN) 0.005 % ophthalmic solution Use 1 drop in both eyes daily at bedtime. Discontinue Xalatan, return in 6-7 weeks for Intraocular pressure check EYEDROP ADHERENCE: reports missing drops sometimes BACKGROUND GLAUCOMA INFORMATION: Referred by: Dr. Chau Family History: No known family history of glaucoma Trauma: No Steroid Use: recent prednisone use ASA/Anti-coagulation: No Prior Glaucoma Meds, Intolerances, Allergies: has only ever used latanoprost with no side effect MOST RECENT GLAUCOMA TESTING: Visual Field 24-2: Right Eye: normal, Left Eye: enlargement of blind spot OCT RNFL: Right Eye: 72, Left Eye: 69 GONIO: Angle open to SS, 2+ pigmentation both eyes 2. Optic cupping of both eyes - ICD9: 377.14, ICD10: H47.233 - Monitor 3. Long-term use of Plaquenil - ICD9: V58.69, ICD10: Z79.899 - High risk medication use for rheumatoid arthritis, recent testing done by Dr. Chau 4. Pseudophakia of both eyes - ICD9: V43.1, ICD10: Z96.1 - Intraocular lens in good position both eyes I have confirmed and edited as necessary the relevant HPI, ophthalmic history, ROS, and the neuro exam findings as obtained by others. I have seen and examined Deric Merida. I have discussed the case and the management of this patient's care with the Resident/Fellow, if applicable. I also have reviewed and agree with the assessment and plan as stated above and agree with all of its relevant components. PROGRESS Observed: 07/13/2025 1:44 PM Status: COMPLETED Source: [facility] ID: [id number] Author: SHANNON CHAU OD Service: ? Author Type: Loft Worker Apprentice Type: Progress Notes Filed: 07/13/2025 13:49 Note Text: 1. Long-term use of Plaquenil (Primary) - Indication: RA - no signs of toxicity today on exam - OCT (03/07/25): normal - Visual Field 10-2 (07/13/25): normal - has been using plaquenil 400 [...] history of retinal or macular disease 2. Primary open-angle glaucoma, bilateral, mild stage IOP: 17/18 today (target is 13-14 OU) OCT 03/07/25): 7-8 o'clock wedge thinning right, superior thinning left eye (overall decrease in average RNFL slowly right eye over past 3 years) 24-2: 12/01/24: inf defect left eye, correlates with OCT (repeat today with taped lids and superior defect gone both eyes compared to last visit) Cup/disc assymmetry: OS/OD Discussed insertion tips (patient having more trouble with right eye) Discussed elevation of IOP and need to decrease Had discussion with patient about adding additional drop vs referring for possible SLT Patient opts to see Dr. Kulkarni for possible SLT vs another drop at this time 3. Pseudophakia of both eyes 4. Presbyopia Finalized spec rx for distance/driving Follow-up with Dr. Kulkarni for further glaucoma eval/management and possible SLT vs adding additional drop I have confirmed and edited as necessary the relevant HPI, ophthalmic history, ROS, and the neuro exam findings as obtained by others. I have seen and examined Deric Merida. I have discussed the case and the management of this patient's care with the Resident/Fellow, if applicable. I also have reviewed and agree with the assessment and plan as stated above and agree with all of its relevant components. Shannon Chau, OD July 13, 2025 1:44 PM OFFICE VISIT Observed: 07/06/2025 9:30 AM Status: COMPLETED Source: [facility] [id number] Deric Merida [birth year] F Date Provider Department Center 07/06/2025 [id number] MCGRAW [facility] None No family history on file Level of Service:07819 IA OFFICE/OUTPATIENT ESTABLISHED MOD MDM 30 MIN Reason for Visit and Comments: Follow-up [886240] - review imaging PROGRESS NOTE Observed: 07/06/2025 9:30 AM Status: COMPLETED Source: [facility] NEUROSURGERY CONSULT NOTE Patient Name: Deric Merida Patient : 1945 PCP: No primary care provider on file. History of Present Illness: 80 y.o. female arrives with follow up imaging of her lumbar spine. Continues to have low back pain with spasms. This is worse on the right. She has sciatic pain on the right. She has pain and numbness in her feet. She has issues with urinary frequency and urge incontinence. She is currently in PT. The rest of her history was reviewed and reverified from previous visit. Chief Complaint Patient presents with Follow-up review imaging Past Medical History: Medical History[1] Past Surgical History: Surgical History[2] Home Medications: Prior to Admission medications Not on File Allergies: Baclofen, Cyclobenzaprine, Diclofenac, Duloxetine, Pregabalin, Temazepam, Clopidogrel, Hydrochlorothiazide, Carbamazepine, Gabapentin, and Methylphenidate Social History: TOBACCO: reports that she quit smoking about 45 years ago. Her smoking use included cigarettes. She started smoking about 67 years ago. She has a 5.5 pack-year smoking history. She has never used smokeless tobacco. ETOH: reports current alcohol use of about 2.0 standard drinks of alcohol per week. RECREATIONAL DRUG USE: Social History Substance and Sexual Activity Drug Use Never Family History: Family History[3] Review of Systems: Review of Systems Constitutional: Negative. Musculoskeletal: Positive for back pain. All other systems reviewed and are negative. Physical Examination: BP 155/83 HR 75 Physical Exam Vitals reviewed. Constitutional: Appearance: Normal appearance. Eyes: Pupils: Pupils are equal, round, and reactive to light. Pulmonary: Effort: Pulmonary effort is normal. Skin: General: Skin is warm and dry. Neurological: General: No focal deficit present. Mental Status: She is alert and oriented to person, place, and time. Psychiatric: Mood and Affect: Mood normal. Neurological Exam Mental Status Alert. Oriented to person, place, and time. Cranial Nerves CN III, IV, : Pupils equal round and reactive to light bilaterally. She is elderly and debilitated and kyphotic throughout the thoracic lumbar region. She is very unsteady when ambulating. She cannot ambulate on toes or heels. She has difficulty getting out of a chair. She cannot stand from a stooped position. Strength diffusely in her lower extremities is weak being 3-4 minus throughout Results Labs: Last 24hrs No results found for this or any previous visit (from the past 24 hours). Radiology Personal review: I independently interpreted MRI of the lumbar spine performed in the past month. This reveals varying degrees of stenosis ranging from moderate to severe extending from L3-S1. At L5-S1 she has an associated spondylolisthesis and stenosis extending into the far lateral region bilaterally worse on the right. ASSESSMENT / PLAN : 80yo f with follow up imaging of her lumbar spine. Her imaging was reviewed with her, and she is symptomatic to the above noted pathology. Both surgical and conservative treatment options were discussed with her. With respect to surgery, the risks, benefits, and alternatives to an L3-S1 decompression with L5-S1 fusion with pedicle screw fixation with probable cage insertion were discussed and understood by the patient. The rehabilitation process and prognosis were discussed as well and all her questions were answered. She would be at increased surgical risk due to hypertension, overall bone quality, and the size and scope of the procedure and pathology. If she were to proceed with surgery, it would bebest if she stopped plaquenil 3 months post op as this would interfere with healing of her fusion. She is considering her options. We discussed conservative options as well such as medication, therapy, injections, and activity modification. Diagnosis Plan 1. Lumbar radiculopathy 2. Spondylolisthesis of lumbar region [1] Past Medical History: Diagnosis Date Deep vein thrombosis (HCC) January 2023 Hypertension do not recall - possible since 2002 [2] Past Surgical History: Procedure Laterality Date ABDOMINAL SURGERY CARPAL TUNNEL RELEASE March 2011 CATARACT EXTRACTION COLONOSCOPY UTERINE SUSPENSION (HISTORICAL) [3] No family history on file. 36 Observed: 06/23/2025 3:33 PM Status: COMPLETED [facility] Pt called asking about her i mages. We have in PACS x ray lumbar and thoracic. Pt. MRI will be completed on 06/27 and she will have it sent to us via PACS. 36 Observed: 06/13/2025 11:02 AM Status: COMPLETED Source: [facility] Per Dr. Mcgraw's note- he on ly wanted MRI of the lumbar spine but also ordered xrays of the lumbar and thoracic spine. Xray is all that is needed to look for compression fracture at this time. 36 Observed: 06/12/2025 4:20 PM Status: COMPLETED [facility] Patient called back and aske d if this MRI extend to thoracic and lumbar. Pt states the MRI needs to see both. 36 Observed: 06/12/2025 11:07 AM Status: COMPLETED Source: [facility] Left voicemail message for enrique valadez to call [facility] to schedule MRI lumbar. MRI lumbar order, demographics, and insurance approval was faxed to [facility] per pt request [phone] on 06/09/25. Reminded pt to call for follow up appt when she has a date for her scan. 36 Observed: 06/12/2025 9:27 AM Status: COMPLETED Source: [facility] Patient called stating that her MRI was approved by her insurance company and needs to talk to someone about where and when she can get it done. 36 Observed: 06/09/2025 11:29 AM Status: COMPLETED Source: [facility] MRI Lumbar Order Demographics Insurance Approval Faxed to [facility] [phone] Please call our office at [phone] to schedule a follow up appt with Dr. Mcgraw after you have a date for the MRI lumbar spine. 36 Observed: 06/08/2025 3:55 PM Status: COMPLETED Source: [facility] [employer] [facility] Please let pt know that we r eceived the xray images. We will await the MRI to further comment. We will also need the xrays we ordered to see if there is any movement in the spine. PROGRESS NOTE Observed: 06/01/2025 2:00 PM Status: COMPLETED Source: [facility] That makes sense. Please gordon saxena. Thank you PROGRESS NOTE Observed: 06/01/2025 2:00 PM Status: COMPLETED Source: [facility] NEUROSURGERY CONSULT NOTE Patient Name: Deric Merida Patient : 1945 PCP: No primary care provider on file. History of Present Illness: 80 y.o. female arrives with complaints of back pain. States she feels that she has pulled a muscle in the midline of her back. She has problems with numbness in her [place] feet and feels she has issues ambulating. Has seen a timekeeper supervisor. She has also had injections which did not work. She has severe left lower extremity radiculopathy. She is in excruciating pain most of which is in the back. She has difficulty even ambulating a few feet. Chief complaint-back pain Past Medical History: Medical History[1] Past Surgical History: Surgical History[2] Home Medications: Prior to Admission medications Not on File Allergies: Baclofen, Cyclobenzaprine, Diclofenac, Duloxetine, Pregabalin, Temazepam, Clopidogrel, Hydrochlorothiazide, Carbamazepine, Gabapentin, and Methylphenidate Social History: TOBACCO: reports that she quit smoking about 45 years ago. Her smoking use included cigarettes. She started smoking about 67 years ago. She has a 5.5 pack-year smoking history. She has never used smokeless tobacco. ETOH: reports current alcohol use of about 2.0 standard drinks of alcohol per week. RECREATIONAL DRUG USE: Social History Substance and Sexual Activity Drug Use Never Family History: Family History[3] Review of Systems: Review of Systems Constitutional: Negative. Musculoskeletal: Positive for back pain. All other systems reviewed and are negative. Physical Examination: BP 155/83 HR 75 Physical Exam Vitals reviewed. Constitutional: Appearance: Normal appearance. Eyes: Pupils: Pupils are equal, round, and reactive to light. Pulmonary: Effort: Pulmonary effort is normal. Skin: General: Skin is warm and dry. Neurological: General: No focal deficit present. Mental Status: She is alert and oriented to person, place, and time. Psychiatric: Mood and Affect: Mood normal. Neurological Exam Mental Status Alert. Oriented to person, place, and time. Cranial Nerves CN III, IV, : Pupils equal round and reactive to light bilaterally. She is elderly and debilitated and kyphotic throughout the thoracic lumbar region. She is very unsteady when ambulating. She cannot ambulate on toes or heels. She has difficulty getting out of a chair. She cannot stand from a stooped position. Strength diffusely in her lower extremities is weak being 3-4 minus throughout Results Labs: Last 24hrs No results found for this or any previous visit (from the past 24 hours). Radiology Personal review: No recent imaging ASSESSMENT / PLAN : She can barely ambulate at this point. She has considerable weakness throughout her legs and is very unsteady. I am concerned with her low back pain and radiculopathy that she has symptomatic structural pathology in her lumbar spine likely including neural compression. I recommend MRI and x-rays of the lumbar spine. She also has some pain in the thoracic spine. She may have a compression fracture or other pathology. I recommend x-rays of that area as well. We discussed potential treatment options including conservative management versus surgical intervention. She has already been through pain management including injections without relief [1] Past Medical History: Diagnosis Date Deep vein thrombosis (HCC) January 2023 Hypertension do not recall - possible since 2002 [2] Past Surgical History: Procedure Laterality Date ABDOMINAL SURGERY CARPAL TUNNEL RELEASE March 2011 CATARACT EXTRACTION COLONOSCOPY UTERINE SUSPENSION (HISTORICAL) [3] No family history on file. OFFICE VISIT Observed: 06/01/2025 2:00 PM Status: COMPLETED Source: [facility] [id number] Deric Merida [birth year] F Date Provider Department Center 06/01/2025 [id number] MCGRAW [facility] None No family history on file Level of Service:[id number] [place] OFFICE/OUTPATIENT NEW LOW [facility] 30 MINUTES Reason for Visit and Comments: New Patient [542] - Back issues 36 Observed: 05/19/2025 10:57 AM Status: COMPLETED Source: [facility] Pt. Has an appointment with Dr. Mcgraw on 06/01. Pt. Had images sent through PACS but none of them pertain to why she is coming in to see the doctor. Pt. Has no recent images of her back or neck. PROGRESS Observed: 03/07/2025 10:43 AM Status: COMPLETED [id number] Author: SHANNON CHAU, PERLA Service: ? Author Type: ELECTRONIC ORGAN MECHANIC Type: Progress Notes Filed: 03/07/2025 10:45 Note [...] others. I have seen and examined Deric Merida. I have discussed the case and the management of this patient's care with the Resident/Fellow, if applicable. I also have reviewed and agree with the assessment and plan as stated above and agree with all of its relevant components. Shannon Chau, OD March 07, 2025 10:44 AM PROGRESS Observed: 12/29/2024 12:46 PM Status: COMPLETED Source: [facility] HNO ID: [id number] Author: SHANNON CHAU, PERLA Service: ? Author Type: ELECTRONIC ORGAN MECHANIC Type: Progress Notes Filed: 12/29/2024 12:47 Note [...] Follow-up in 2 months for IOP check Shannon Chau, OD December 02, 2024 9:00 AM PROGRESS Observed: 12/02/2024 9:00 AM Status: COMPLETED Source: [facility] HNO ID: [id number] Author: SHANNON CHAU, OD Service: ? Author Type: ELECTRONIC ORGAN MECHANIC Type: Progress Notes Filed: 12/02/2024 09:18 Note Text: 1. Primary open-angle glaucoma, bilateral, mild stage (Primary) IOP: 19/19 today OCT: 7-8 o'clock wedge thinning right, [...] Follow-up in 1 month for IOP check Shannon Chau, OD December 02, 2024 9:00 AM PROGRESS Observed: 11/03/2024 2:52 PM Status: COMPLETED Source: [facility] HNO ID: [id number] Author: SHANNON CHAU OD Service: ? Author Type: ELECTRONIC ORGAN MECHANIC Type: Progress Notes Filed: 11/03/2024 14:55 Note Text: 1. Glaucoma suspect of both eyes (Primary) IOP: 15/16 today OCT: Superior thinning left eye 24-2: 11/03/24: normal right eye, superior loss left eye (new)- (patient ad hard time sitting still for test) 30-2 04/30/23: superior defect both eye, lids? Small inf defect left eye, correlates with OCT Cup/disc assymmetry: OS/OD Previous records from [id number] show stable OCT and visual field compared [...] nerve (possible dilation if needed for OCT) Shannon Chau, OD November 03, 2024 2:53 PM ALLERGIES DATE TYPE / CODE NAME / CODE REACTION SEVERITY SOURCE 04/27/2023 DRUG INGREDI/[id number] 003(SNOMED CT) CLOPIDOGREL OTHER: SEE C [facility] 04/27/2023 DRUG INGREDI/[id number] 003(SNOMED CT) CARBAMAZEPINE OTHER: SEE C [facility] 04/27/2023 DRUG INGREDI/[id number] 003(SNOMED CT) GABAPENTIN OTHER: SEE C [facility] 04/27/2023 DRUG INGREDI/[id number] 003(SNOMED CT) HYDROCHLOROTHIAZIDE OTHER: SEE C [facility] 04/27/2023 DRUG INGREDI/[id number] 003(SNOMED CT) METHYLPHENIDATE OTHER: SEE C [facility] 02/19/2022 DRUG INGREDI/[id number] 003(SNOMED CT) BACLOFEN OTHER: SEE C [facility] 02/19/2022 DRUG INGREDI/[id number] 003(SNOMED CT) DULOXETINE Myalgia [facility] 02/19/2022 DRUG INGREDI/[id number] 003(SNOMED CT) DICLOFENAC OTHER: SEE C [facility] 02/19/2022 DRUG INGREDI/[id number] 003(SNOMED CT) CYCLOBENZAPRINE OTHER: SEE C [facility] 02/19/2022 DRUG INGREDI/[id number] 003(SNOMED CT) PREGABALIN OTHER: SEE C [facility] 02/19/2022 DRUG INGREDI/[id number] 003(SNOMED CT) TEMAZEPAM OTHER: SEE C [facility] ENCOUNTERS ADMIT/DISCHARGE ACCOUNT NUMBER ADMITTING ENCOUNTER CLASS LOC ATION SOURCE 09/06/2025/ 5 [id number] Ambulatory [facility] 07/18/2025/ 5 [id number] [facility] 07/13/2025/ 5 [id number] [facility] 5 [id number] [address] [place] [address] 06/01/2025/ 5 [id number] [address] [place] [address] 03/07/2025/ 5 [id number] Ambulatory [facility] 12/29/2024/ 5 [id number] Ambulatory [facility] 12/01/2024/ 5 [id number] Ambulatory [facility]AY[facility] 11/03/2024/ 5 [id number] [facility] ing:KAYLA [facility] PAYERS ENCOUNTER GUARANTOR PAYER SUBSCRIBER SOURCE 09/06/2025 Primary Insuranc e:[employer] MEDICARE PPOPolicy Number: [id number] Date:9538-77-54Zdss Name:Fidel WEBBOB: [id number] [address] 09/06/2025 Secondary Insura nce:AETNA PPOPolicy Number: [id number] Date:1704-50-01Shcr Name:Maria WEBBOB: [id number] [address] 07/18/2025 Primary Insuranc e:AETNA MEDICARE PPOPolicy Number: [id number] Date:7846-29-82Fmov Name:Fidel WEBBOB: [id number] [address] 07/18/2025 Secondary Insura nce:AETNA PPOPolicy Number: [id number] Date:6343-23-13Dkjd Name:Maria WEBBOB: [id number] [address] 07/13/2025 Primary Insuranc e:AETNA MEDICARE PPOPolicy Number: [id number] Date:9355-67-13Cufc Name:Fidel WEBBOB: [id number] [address] [place] [id number] [place] [address] 07/13/2025 Secondary Insura nce:AETNA PPOPolicy Number: [id number] Date:4377-14-97Wvma Name:Maria WEBBOB: [id number] [id number] [place] [address] 07/06/2025 Primary Insuranc e:AETNA MEDICARE ADVANTAGEPolicy Number: [id number] Date:1103-05-01Ilhh Name:Medicare O DERIC MARTINEZANDOB: [id number] [place] [id number] [place] [address] 06/01/2025 Primary Insuranc e:AETNA MEDICARE ADVANTAGEPolicy Number: [id number] Date:1998-61-21Aeme Name:Medicare O DERIC WEBBOB: [id number] [id number] [place] [address] 03/07/2025 Primary Insuranc e:AETNA PPOPolicy Number: [id number] Date:3637-00-44Xdyb Name:Maria WEBBOB: [id number] [id number] [place] [address] 03/07/2025 Secondary Insura nce:AETNA MEDICARE PPOPolicy Number: [id number] Date:7398-55-45Idcw Name:Fidel WEBBOB: [id number] [id number] [place] [address] 12/29/2024 Primary Insuranc e:AETNA PPOPolicy Number: [id number] Date:6022-44-60Xrvr Name:Maria WEBBOB: [id number] [id number] [place] [address] 12/29/2024 Secondary Insura nce:AETNA MEDICARE PPOPolicy Number: [id number] Date:9651-35-61Tsxt Name:Fidel WEBBOB: [id number] [address] 12/01/2024 Primary Insuranc e:AET PPOPolicy Number: [id number] Date:1185-66-14Crhb Name:Maria WEBBOB: [id number] [address] 12/01/2024 Secondary Insura nce:AETNA MEDICARE PPOPolicy Number: [id number] Date:5464-49-32Wgzr Name:Fidel WEBBOB: [id number] [address] 11/03/2024 Primary Insuranc e:[facility] ONLYPolicy Number: [id number] Date:8285-44-80Tatz Name:Maria WEBBOB: [id number] [address]
== END 2025-06-11 11:05 | disposition home or self-care (01) ==
LOC: ED 11:48 → MS3 06-11 08:32 → PCU 10-24 11:40
PROVIDERS: Admitting Provider Internal Medicine; Emergency Provider Surgery; PCP Internal Medicine; Visit Provider Internal Medicine
DX: A08.4 Viral intestinal infection, unspecified (principal); M06.9 Rheumatoid arthritis, unspecified; N17.9 Acute kidney failure, unspecified; N39.0 Urinary tract infection, site not specified; D69.6 Thrombocytopenia, unspecified; Z66 Do not resuscitate; I10 Essential (primary) hypertension; G25.81 Restless legs syndrome; E78.00 Pure hypercholesterolemia, unspecified; K21.9 Gastro-esophageal reflux disease without esophagitis; M62.830 Muscle spasm of back; G89.29 Other chronic pain; Z79.83 Long term (current) use of bisphosphonates; Z79.899 Other long term (current) drug therapy; Z86.718 Personal history of other venous thrombosis and embolism; Z87.891 Personal history of nicotine dependence
CPT/HCPCS: 36415; 74176; 80048; 80053; 81001; 83690; 83735; 84100; 85025; 87077; 87086; 87088; 87186; 94668; 96361; 96365; 96366; 96372; 96375; 96376; 99221; 99285; A4216; G0378; J2405

== ENCOUNTER → 2025-06-14 | Outpatient (CLI) | payer MEDICARE, SELFPAY ==
--- NOTE | 2025-06-14 11:48 | RAD_ITS ---
EXAM: XR Lumbosacral Spine Flexion/Extension Only, 2 or 3 Views CLINICAL INDICATION: LOW BACK PAIN TECHNIQUE: Lateral flexion/extension views of the lumbar spine and sacrum. COMPARISON: XR Lumbosacral Spine Flexion Extension dated 06/02/2025 FINDINGS: VERTEBRAE: Anterior spondylolisthesis of L4 over S1 by 8 mm without significant change during flexion or extension. Degenerative facet arthropathy throughout the lumbar spine, most prominent in the lower lumbar spine. Mild superior endplate compression deformity of L1 and T12 vertebral bodies, likely chronic. SACRUM/COCCYX: Unremarkable as visualized. No acute fracture. DISC SPACES: Degenerative disc disease throughout the lumbar spine. SOFT TISSUES: Unremarkable. RAD/L/S Spine Min 4 Views IMPRESSION: 1. Anterior spondylolisthesis of L4 over S1 by 8 mm without significant change during flexion or extension. 2. Degenerative changes lumbar spine as described. Reading Location: [id number]
== END | disposition home or self-care (01) ==
LOC: RAD 11:34
PROVIDERS: PCP Internal Medicine
DX: M54.16 Radiculopathy, lumbar region (principal)
CPT/HCPCS: 72110

== ENCOUNTER → 2025-06-27 | Outpatient (CLI) | payer MEDICARE, SELFPAY ==
--- NOTE | 2025-06-27 16:11 | MRI_ITS ---
PROCEDURE: SPINE LUMBAR (ROUTINE) 06/27/2025 REASON FOR EXAM: LUMBAR RAD, SYMPTOMS PERSIST WITH >6 WKS TREATMENT TECHNIQUE: Procedure Code: MRISPL Modality: MR Procedure: SPINE LUMBAR (ROUTINE) COMPARISON: 08/21/2023 FINDINGS: Normal lumbar vertebral body height. Grade 1 subluxation of L5 upon S1 again noted with ltdsb-fqbhmoy-hqdq-left L5 foraminal nerve root impingement. This finding was present previously. Bilateral inferior foraminal narrowing at L4-5 is similar on the left and more prominent on the right compared to prior study. No compression of the conus. Negative for retroperitoneal mass. L1-2 exhibits facet arthrosis and mild bulging with a mild degree of canal narrowing similar to the prior study. At L2-3 aode-vkzbavm-mqkx-right facet degeneration and inferior foraminal narrowing were also present on the prior study and are unchanged. At L3-4, mcoh-kvwtcvs-xovi-right foraminal narrowing is unchanged with mild central canal narrowing. At L4-5, mild canal narrowing from concentric annular bulge and facet arthrosis, stable compared to prior. L5-S1 has been described above. MRI/Spine Lumbar (Routine) IMPRESSION: Similar findings to the prior study including multilevel foraminal stenosis. Reading Location: [facility]
== END | disposition home or self-care (01) ==
LOC: MRI 16:09
PROVIDERS: PCP Internal Medicine
DX: M54.16 Radiculopathy, lumbar region (principal)
CPT/HCPCS: 72148

== ENCOUNTER 2025-07-12 16:30 | Outpatient (RCR) | payer MEDICARE, SELFPAY ==
--- NOTE | 2025-04-03 16:05 | HP.PTEVAL ---
Patient's Visit Information Visit Information Visit Information: DERIC BOO is a 80 year old F referred to Physical Therapy by Dr. Mj Sena DPM with a diagnosis of Plantar Fasciitis. Date of Evaluation: 04/03/25 Physical Therapist: Breann Brito DPT Visit Plan Frequency: 2x /Week Duration: 4 Weeks Plan: Ultrasound (not covered), stretching, manual, proprioception HEP Given IE: Gastroc Stretch Towel, Ball Roll under Foot, Frozen Water Bottle Roll Subjective Subjective: Patient reports that she has had plantar fasciitis for about 2 weeks in the left foot- she thinks its from standing so much from sciatica. She can't sit for long periods of time due to her sciatica pain. Thursday she smashed down on her left heel and it was very painful. She feels that this is making the numbness in the left foot worse that she has had for years. Worst: 15/10 Agg: doing anything, being up on it. Best: 4-5/10. Eases: nothing- she has tried ice packs. She was given exercises but feels that they made them worse. She has pain all the time. Describes it as dull achy at rest- more stabbing and shooting when she is walking or stepping on it. The pain is located in the sole of the heel and the ankle- and the radiates to top of the foot to the toes. She has inserts in her shoes. She has a sturdy pair of shoes around the house. Sleep: hard time sleeping- gets up to go to the restroom- getting up out of the bed- she is very careful. She falls frequently- last one was spring. PMHx/Meds: scanned into the chart from papers given to PT from patient Objective Objective: Posture: forward head, rounded shoulders Gait: antalgic- straight cane in left hand- decreased stance on left LE with poor toe off HR/TR: able with reports of pain with HR- UE assist for balance SLS: weight shift but does not SLS due to loss of balance Observation: mild pes planus in standing Palpation: tender along origin of plantar fascia, medial and lateral malleolus, Achilles tendon, medial arch ROM: DF: 5 degrees, PF: 60 degrees, Inv: 50 degrees, Ever: 30 degrees- reports tightness with DF/PF motions Strength: Ankle: 4+/5 throughout Flex: HS: moderate, Gastroc: moderate, Soleus: moderate Special Test: Windlass: positive Edema: mild swelling in ankle Balance/Special Test Scores Lower Extremity Functional Score: 10 Goals Goal 1:: Patient will be I with HEP and progression Goal Time Frame: 4-6 Weeks Goal 2:: Patient will HR without pain Goal Time Frame: 4-6 Weeks Goal 3:: Patient will ambulate without AD >150 feet Goal Time Frame: 4-6 Weeks Goal 4:: Patient will report 80% improvement Goal Time Frame: 4-6 Weeks Rehabilitation Potential Physical Therapy Diagnosis: Patient presents with hypomobility- she has decreased LE ROM, proprioception, flex and muscular endurance leading to abnormal gait and increased pain with ADL's. Rehabilitation Potential: Good Anticipated Interventions Patient/Client Instruction: Educate patient on: Benefits of Fitness Program Therapeutic Exercise to Include: Strength training, Endurance training, Balance training, Coordination, Agility training, Body mechanics, Postural training, Flexibilty training, Gait and locomotor training and Neuromotor development For the Purpose of:: To improve muscle performance and motor function Cryotherapy (ice pack, ice massage): Yes Thermo therapy (hot pack): Yes Ultrasound (thermal/non thermal): Yes For the Purpose of:: To decrease pain Text: Thank you for the opportunity to evaluate your patient. For Medicare and Medicare HMO plans, please review the plan of care and approve it. It will need to be FAXED BACK to us at [phone] for Medicare purposes. For Medicare only, by signing this I certify the plan of care. Please let me know if there are questions or concerns regarding this plan of care. Physician Signature: Date:
--- NOTE | 2025-06-14 11:15 | HP.PTEVAL_ITS ---
Patient's Visit Information Visit Information Visit Information: DERIC BOO is a 80 year old F referred to Physical Therapy by ZABRINA Benitez with a diagnosis of Plantar Fasciitis. Date of Evaluation: 04/03/25 Physical Therapist: Moiz Jackson, PT, Cert MDT, OCS Visit Plan Frequency: 2x /Week Duration: 4 Weeks Plan: re-check today. Ultrasound (not covered), stretching, manual, propr ioception HEP Given IE: Gastroc Stretch Towel, Ball Roll under Foot, Frozen Water Bottle Roll Subjective Subjective: Patient reports that she has had plantar fasciitis for about 2 weeks in the left foot- she thinks its from standing so much from sciatica. She can't sit for long periods of time due to her sciatica pain. Thursday she smashed down on her left heel and it was very painful. She feels that this is making the numbness in the left foot worse that she has had for years. Worst: 1510 Agg: doing anything, being up on it. Best: 4-510. Eases: nothing- she has tried ice packs. She was given exercises but feels that they made them worse. She has pain all the time. Describes it as dull achy at rest- more stabbing and shooting when she is walking or stepping on it. The pain is located in the sole of the heel and the ankle- and the radiates to top of the foot to the toes. She has inserts in her shoes. She has a sturdy pair of shoes around the house. Sleep: hard time sleeping- gets up to go to the restroom- getting up out of the bed- she is very careful. She falls frequently- last one was spring. PMHx/Meds: scanned into the chart from papers given to PT from patient Pain Left foot: Pain Intensity (Out of 10): 3 Comment: with movement or walking on it Objective Objective: Posture: forward head, rounded shoulders Gait: antalgic- straight cane in left hand- decreased stance on left LE with poor toe off HR/TR: able with reports of pain with HR- UE assist for balance SLS: weight shift but does not SLS due to loss of balance Observation: mild pes planus in standing Palpation: tender along origin of plantar fascia, medial and lateral malleolus, Achilles tendon, medial arch ROM: DF: 5 degrees, PF: 60 degrees, Inv: 50 degrees, Ever: 30 degrees- reports tightness with DF/PF motions Strength: Ankle: 4+/5 throughout Flex: HS: moderate, Gastroc: moderate, Soleus: moderate Special Test: Windlass: positive Edema: mild swelling in ankle Balance/Special Test Scores Oswestry Low Back Score: 29 Lower Extremity Functional Score: 10 Goals Goal 1:: Patient will be I with HEP and progression Goal Time Frame: 4-6 Weeks Goal 2:: Patient will HR without pain Goal Time Frame: 4-6 Weeks Goal 3:: Patient will ambulate without AD >150 feet Goal Time Frame: 4-6 Weeks Goal 4:: Patient will report 80% improvement Goal Time Frame: 4-6 Weeks Rehabilitation Potential Physical Therapy Diagnosis: Patient presents with hypomobility- she has decreased LE ROM, proprioception, flex and muscular endurance leading to abnormal gait and increased pain with ADL's. Rehabilitation Potential: Good Anticipated Interventions Patient/Client Instruction: Educate patient on: Benefits of Fitness Program Therapeutic Exercise to Include: Strength training, Endurance training, Balance training, Coordination, Agility training, Body mechanics, Postural training, Flexibilty training, Gait and locomotor training and Neuromotor development For the Purpose of:: To improve muscle performance and motor function Cryotherapy (ice pack, ice massage): Yes Thermo therapy (hot pack): Yes Ultrasound (thermal/non thermal): Yes For the Purpose of:: To decrease pain Text: Thank you for the opportunity to evaluate your patient. For Medicare and Medicare HMO plans, please review the plan of care and approve it. It will need to be FAXED BACK to us at [phone] for Medicare purposes. For Medicare only, by signing this I certify the plan of care. Please let me know if there are questions or concerns regarding this plan of care. Physician Signature: Date:
--- NOTE | 2025-06-14 11:17 | HP.PTEVAL2 ---
Patient's Visit Information Visit Information Visit Information: DERIC BOO is a 80 year old F referred to Physical Therapy by ZABRINA Benitez with a diagnosis of STRAIN OF MUSCLE AND AND TENDON OF FRONTL WALL THORACX. Date of Evaluation: 06/14/25 Physical Therapist: Moiz Jackson, PT, Cert MDT, OCS Visit Plan Frequency: 2x /Week Duration: 4 Weeks Plan: PT INTERVENTIONS MANUAL THERAPY ( GENTLE STM ,RIGHT THORACIC /SCAPULAR) ,US/ESTIM FOR PAIN ,THORACIC/POSTURAL EX'S AND ACTIVITY MODIFICATION Subjective Subjective: This 80 y/o female presents to physical therapist with mid thoracic on right. Patient developed thoracic pain May 22 by doing housework mopping ,dusting and vacuuming. [facility] seen [facility] prescribed prednisone pack and muscle relaxer . Medication did not help. X-rays thoracic Multilevel degenerate changes predominantly at the mid thoracic spine of disc space narrowing, sclerotic endplates and marginal osteophytes.,ribs x-rays showed old rib fractures ,lumbar Disc space narrowing and vertebral endplate osteophytes throughout, with no significant change. L4-L5 and L5-S1 facet.Bone density showed osteopenia . Aggravating factors bending ,lifting ,twisting housework moving . Alleviating nothing. Coughing/sneezing +. Bowel/bladder -. Pain affects sleeping. No falls ,Patient condition affects QOL and function/housework , Patient goals to decrease pain. SOCIAL: VOCATION: retired arthropathy. Pain Bilateral Back: Intensity: 8 Pain Intensity Range: 10 Comment: thoracic Objective Objective: POSTURE: mod thoracic kyphosis PALPATION: TTP right scapular muscular ,paraspinals NEURO: denies paresthesia/tingling AROM: BUE WFL MMT: grossly 4/5 except shoulder 4-/5 Special Tests Flexion - Mechanical Response: No effect Flexion - Symptoms During Testing: Increases Flexion - Symptoms After Testing: No worse Extension - Mechanical Response: No effect Extension - Symptoms During Testing: Increases Extension - Symptoms After Testing: No worse Right rotation - Mechanical Response: No effect Right Rotation - Symptoms During Testing: Increases Right Rotation - Symptoms After Testing: No worse Left rotation - Mechanical Response: Increases motion Left Rotation - Symptoms During Testing: Decreases Left Rotation - Symptoms After Testing: No worse Slump test left side: Negative Slump test right side: Negative Goals Goal 1:: Patient to be I with [facility] for thoracic spine Goal Time Frame: 4-6 Weeks Goal 2:: Patient to demonstrate 50% improvement with less pain and improve function with ADL's Goal Time Frame: 4-6 Weeks Goal 3:: Patient to improve thoracic ROM for function of recovery for ADLS Goal Time Frame: 4-6 Weeks Goal 4:: Patient to improve back oswestry score by 5 points to improve QOL Goal Time Frame: 4-6 Weeks Rehabilitation Potential Physical Therapy Diagnosis: This patient appears to have right muscle strain right thoracic muscle of scapular with TTP ,pain with movement and positioning impairs ADL's and housework tasks h/o osteopenia thus benefit from skilled PT Rehabilitation Potential: Good Anticipated Interventions Patient/Client Instruction: Educate patient on: Condition and Plan of Care For the Purpose of:: To decrease pain, To increase ROM, To improve muscle performance and motor function, To improve ability to perform ADL's, To increase tolerance to activity/condition/position, To improve ability of physical actions for home/community/work/leisure, To improve health of tissue, To decrease soft tissue restriction, To increase flexibility/ROM and To improve tolerance to ADL's Therapeutic Exercise to Include: Strength training, Postural training, Flexibilty training and Active ROM For the Purpose of:: To decrease pain, To increase ROM, To improve muscle performance and motor function, To improve ability to perform ADL's, To increase tolerance to activity/condition/position, To improve gait and locomotor functions, To improve health of tissue, To decrease soft tissue restriction and To increase flexibility/ROM Manual Therapy Techniques to Include: Soft tissue mobilization Comment: RIGHT THORACIC For the Purpose of:: To decrease pain, To increase ROM, To improve nutrient delivery to tissue, To increase oxygenation perfusion, To improve health of tissue and To decrease soft tissue restriction TENS: Yes IF ES: Yes Cryotherapy (ice pack, ice massage): Yes Thermo therapy (hot pack): Yes Ultrasound (thermal/non thermal): Yes For the Purpose of:: To decrease pain, To increase ROM, To improve nutrient delivery to tissue, To increase oxygenation perfusion, To improve health of tissue and To decrease soft tissue restriction text: Thank you for the opportunity to evaluate your patient. For Medicare and Medicare HMO plans, please review the plan of care and approve it. It will need to be FAXED BACK to us at [phone] for Medicare purposes. For Medicare only, by signing this I certify the plan of care. Please let me know if there are questions or concerns regarding this plan of care. Physician Signature: Date:
--- NOTE | 2025-07-12 17:02 | HP.PTDCSUM ---
Discharge Summary D/C summary: It has been my pleasure to treat DERIC BOO referred by ZABRINA Benitez, with the diagnosis of Plantar Fasciitis for a total of 9 visit(s). Discharge Date: Please see the following information for a summary of their discharge status. Subjective Subjective: Pt does feel she has made some progress. thinking about what % better she is. Pain Left foot: Pain Intensity (Out of 10): 3 Objective Objective/Function: Sees PT for re-check. Not using a cane anymore for amb. Able to complete BHR with no pain. Pt has been inconsistent with HEP and admits. Sees foot again soon - poss 05/09 Goals Goal 1:: Patient will be I with HEP and progression Goal 2:: Patient will HR without pain Goal 3:: Patient will ambulate without AD >150 feet Goal 4:: Patient will report 80% improvement Plan Plan: re-check today. Ultrasound (not covered), stretching, manual, proprioception HEP Given IE: Gastroc Stretch Towel, Ball Roll under Foot, Frozen Water Bottle Roll D/C Information d/c sentence: If there are questions or concerns regarding this patient's physical therapy, please feel free to call me at [phone]. Thank you for the referral of this patient. Sincerely, Moiz Jackson, PT, Cert MDT, OCS Balance/Gait/Functional tests Balance/Special Test Scores Oswestry Low Back Score: 27 Lower Extremity Functional Score: 10
--- NOTE | 2025-07-13 09:36 | HP.PTDS(2)_ITS ---
Discharge Summary D/C Summary: It has been my pleasure to treat DERIC BOO referred by ZABRINA Benitez, with the diagnosis of STRAIN OF MUSCLE AND AND TENDON OF FRONTL WALL THORACX for a total of 1 visit(s). Discharge Date: 07/12/25 Please see the following information for a summary of their discharge status. Subjective Subjective: Patient is doing okay today but exercises can make symptoms worse Patient had MRI .discussed with patient Seen DR about MRI Would like to stop therapy ,may consider water ex's Overall Improvement % Improvement: 20 Objective Objective/Function/Assessment: POSTURE: mod thoracic kyphosis PALPATION: TTP right scapular muscular ,paraspinals NEURO: denies paresthesia/tingling AROM: BUE WFL MMT: grossly 4/5 except shoulder 4-/5 LUMBAR : flexion mod loss ,extension mod /severe Goals Patient Goals: Improve Mobility, Improve Function, Decrease Pain, Alleviate Pa in, Walk Normal, Improve ROM and Sleep Normal Goal 1:: Patient to be I with HEP for thoracic spine Goal Progress: Goal Met Goal 2:: Patient to demonstrate 50% improvement with less pain and improve function with ADL's Goal Progress: Progressing Goal 3:: Patient to improve thoracic ROM for function of recovery for ADLS Goal Progress: Progressing Goal 4:: Patient to improve back oswestry score by 5 points to improve QOL Goal Progress: Progressing Plan Plan: d/c to HEP and RTD D/C Information d/c sentence: If there are questions or concerns regarding this patient's physical therapy, please feel free to call me at [phone]. Thank you for the referral of this patient. Sincerely, Moiz Jackson, PT, Cert MDT, OCS Balance/Special Test Scores Improvement % Improvement: 20
--- NOTE | 2025-07-13 16:07 | HP.PTDS(2)_ITS ---
<Statement entered by Moiz Jackson PT, Cert T, YONI - 07/13/25 16:08> This document has been reviewed and signed. Discharge Summary D/C Summary: It has been my pleasure to treat DERIC BOO referred by ZABRINA Benitez, with the diagnosis of STRAIN OF MUSCLE AND AND TENDON OF FRONTL WALL THORACX for a total of 1 visit(s). Discharge Date: 07/12/25 Please see the following information for a summary of their discharge status. Subjective Subjective: Patient is doing okay today but exercises can make symptoms worse Patient had MRI .discussed with patient Seen DR about MRI Would like to stop therapy ,may consider water ex's Overall Improvement % Improvement: 10 Objective Objective/Function/Assessment: POSTURE: mod thoracic kyphosis PALPATION: TTP right scapular muscular ,paraspinals NEURO: denies paresthesia/tingling AROM: BUE WFL MMT: grossly 4/5 except shoulder 4-/5 LUMBAR : flexion mod loss ,extension mod /severe Goals Patient Goals: Improve Mobility, Improve Function, Decrease Pain, Alleviate Pain, Walk Normal, Improve ROM and Sleep Normal Goal 1:: Patient to be I with HEP for thoracic spine Goal Progress: Goal Met Goal 2:: Patient to demonstrate 50% improvement with less pain and improve function with ADL's Goal Progress: Progressing Goal 3:: Patient to improve thoracic ROM for function of recovery for ADLS Goal Progress: Progressing Goal 4:: Patient to improve back oswestry score by 5 points to improve QOL Goal Progress: Progressing Plan Plan: d/c to HEP and RTD D/C Information d/c sentence: If there are questions or concerns regarding this patient's physical therapy, please feel free to call me at [phone]. Thank you for the referral of this patient. Sincerely, Moiz Jackson PT, Cert MDT, OCS Balance/Special Test Scores Improvement % Improvement: 10
--- NOTE | 2025-07-13 16:09 | HP.PTDS(2)_ITS ---
Discharge Summary D/C Summary: It has been my pleasure to treat DERIC BOO referred by ZABRINA Benitez, with the diagnosis of STRAIN OF MUSCLE AND AND TENDON OF FRONTL WALL THORACX for a total of 8 visit(s). Discharge Date: 07/12/25 Please see the following information for a summary of their discharge status. Subjective Subjective: Patient is doing okay today but exercises can make symptoms worse Patient had MRI .discussed with patient Seen DR about MRI Would like to stop therapy ,may consider water ex's Overall Improvement % Improvement: 10 Objective Objective/Function/Assessment: POSTURE: mod thoracic kyphosis PALPATION: TTP right scapular muscular ,paraspinals NEURO: denies paresthesia/tingling AROM: BUE WFL MMT: grossly 4/5 except shoulder 4-/5 LUMBAR : flexion mod loss ,extension mod /severe Goals Patient Goals: Improve Mobility, Improve Function, Decrease Pain, Alleviate Pa in, Walk Normal, Improve ROM and Sleep Normal Goal 1:: Patient to be I with HEP for thoracic spine Goal Progress: Goal Met Goal 2:: Patient to demonstrate 50% improvement with less pain and improve function with ADL's Goal Progress: Progressing Goal 3:: Patient to improve thoracic ROM for function of recovery for ADLS Goal Progress: Progressing Goal 4:: Patient to improve back oswestry score by 5 points to improve QOL Goal Progress: Progressing Plan Plan: d/c to HEP and RTD D/C Information d/c sentence: If there are questions or concerns regarding this patient's physical therapy, please feel free to call me at [phone]. Thank you for the referral of this patient. Sincerely, Moiz Jackson, PT, Cert MDT, OCS Balance/Special Test Scores Improvement % Improvement: 10
== END 2025-07-12 19:00 | disposition home or self-care (01) ==
LOC: PT 16:30
PROVIDERS: PCP Internal Medicine; Referring Provider Nurse Practitioner Family; Visit Provider Nurse Practitioner Family
DX: M72.2 Plantar fascial fibromatosis (principal); M67.01 Short Achilles tendon (acquired), right ankle; M67.02 Short Achilles tendon (acquired), left ankle
CPT/HCPCS: 97014; 97035; 97110; 97140; 97162; 97530; G0283

== ENCOUNTER → 2025-07-13 | Outpatient (CLI) | payer MEDICARE, SELFPAY | END | disposition home or self-care (01) | LOC: SL 19:41 | PROVIDERS: PCP Internal Medicine; Referring Provider Nurse Practitioner Family; Visit Provider Nurse Practitioner Family | DX: G47.10 Hypersomnia, unspecified (principal) | CPT/HCPCS: 95810 ==

== ENCOUNTER → 2025-08-10 | Outpatient (CLI) | payer MEDICARE, SELFPAY | END | disposition home or self-care (01) | LOC: SL 13:51 | PROVIDERS: PCP Internal Medicine; Referring Provider Nurse Practitioner Family; Visit Provider Nurse Practitioner Family | DX: G47.33 Obstructive sleep apnea (adult) (pediatric) (principal) | CPT/HCPCS: 98960; G0463 ==